=== PATIENT | female | born 1950 | race Caucasian/White ===

== ENCOUNTER 2019-12-21 12:50 | Outpatient (CLI) | payer MEDICARE, SELFPAY ==
[2019-12-21 15:54] LABS: Immunoglobulin A 70 mg/dL (70-400); Immunoglobulin G 875 mg/dL (700-1600); Immunoglobulin M 33 mg/dL (40-230)
[2019-12-25 04:25] LABS: Lambda Light Chain 12.9 mg/L (5.7-26.3)
== END 2019-12-21 12:51 | disposition home or self-care (01) ==
LOC: ANHLAB 12:55
PROVIDERS: PCP Family Medicine; Visit Provider Internal Medicine Hematology & Oncology
DX: D80.1 Nonfamilial hypogammaglobulinemia (principal)
CPT/HCPCS: 36415; 82784; 83883

== ENCOUNTER 2019-12-23 03:04 | Emergency (ER) | payer MEDICARE, SELFPAY ==
[2019-12-23] VITALS (8 sets, daily range): BP systolic 129–142; BP diastolic 66–73; PULSE 62–75; RESP 13–21; TEMP 36.8; O2SAT 97–100
--- NOTE | ~2019-12-23 | XR_ITS ---
EXAMINATION: XR chest 2V DATE: 12/23/2019 03:47 INDICATION: Hypertension and palpitations TECHNIQUE: PA and lateral views of the chest were obtained. COMPARISON: Chest radiograph dated 10/06/2018 FINDINGS: Unchanged mild biapical pleural-parenchymal scarring. No new airspace opacities, pulmonary edema, ple ural effusion or pneumothorax. The cardiomediastinal silhouette is normal. Visualized bones and soft tissues are unremarkable. IMPRESSION: 1. No acute cardiopulmonary disease. Reviewed, dictated and finalized at location A.
--- NOTE | 2019-12-23 03:14 | ECG_ITS ---
Measurements Intervals [place] Rate: 69 P: 7 WI: 175 QRS: 6 QRSD: 89 T: 39 QT: 396 QTc: 427 Interpretive Statements SINUS RHYTHM BORDERLINE ST-T WAVE ABNORMALITY- ANT/LAT LEADS BORDERLINE ECG Electronically Signed On 12-26-2019 10:15:35 CDT by Davide Jenkins D.O.
[2019-12-23 03:42] LABS: Basophils Percent Auto 0.4 % (0.2-1.2); Eosinophils Absolute Auto 0.1 K/mm3 (0-0.3); Eosinophils Percent Auto 1.3 % (0-4.4); Hemoglobin 13.8 g/dL (12.0-15.0); Immature Granulocyte Absolute 0.03 K/mm3 (0.00-0.031); Immature Granulocyte Percent A 0.3 % (0-0.5); Lymphocytes Absolute Auto 4.32 K/mm3 (0.9-3.2); Mean Corpuscular HGB Conc 33.7 g/dl (32-36); Mean Corpuscular Hemoglobin 28.9 pg (26-34); Mean Corpuscular Volume 85.8 fl (80-100); Mean Platelet Volume 11.4 fl (7.4-10.4); Monocytes Absolute Auto 0.8 K/mm3 (0.1-0.6); Monocytes Percent Auto 8.4 % (2.6-8.5); Neutrophils Absolute Auto 4.5 K/mm3 (1.3-6.7); Neutrophils Percent Auto 45.6 % (45.5-73.1); Platelet Count Result 270 k/mm3 (150-375); Red Blood Count 4.78 M/mm3 (4.2-5.4); Red Cell Distribution Width 13.3 % (11.5-14.5); White Blood Count 9.8 K/mm3 (4.5-10.0)
[2019-12-23 03:54] LABS: INR 0.9; Prothrombin Time 12.1 Seconds (11.1-14.7)
[2019-12-23 03:55] LABS: Partial Thromboplastin Time 26.6 SECONDS (22.3-36.8)
[2019-12-23 03:57] LABS: Blood Urea Nitrogen 25 mg/dL (7-17); Carbon Dioxide 25 mmol/L (22-30); Chloride 107 mmol/L (98-107); Estimated CRCL calculation 22 ml/min; Estimated Glomerular Filt Rate 26; Glucose 113 mg/dL (65-105); Sodium 138 mmol/L (137-145)
[2019-12-23 04:09] LABS: Troponin I < 0.012 ng/mL (0.000-0.034)
--- NOTE | 2019-12-23 04:20 | ED.GENADULT ---
HPI - General Adult General Chief complaint: Chest Pain <Edward Sifuentes MD - Last Filed: 12/23/19 04:27> Stated complaint: heart racing <Edward Sifuentes MD - Last Filed: 12/23/19 04:27> Time Seen by Provider: 12/23/19 03:13 <Edward Sifuentes MD - Last Filed: 12/23/19 04:27> History of Present Illness HPI narrative: Patient is a 69-year-old female who presents ER with heart palpitations. Patient states she woke up from sleep and noticed that her heart was racing. This persisted for about an hour. No chest pain or shortness of breath. Patient does have history of anxiety. She has been taking anxiety medication for intermittent chest pain over the last couple weeks. It always resolves her symptoms. She has had no fevers or chills or sweats. She recently was concerned that she had COVID 19 and received a test by her PCP despite not having symptoms and it was negative. Patient does report that she has been having some mild nausea not eating as well. Reports she took her pulse and it got as high as 116 bpm. <Edward Sifuentes MD - Last Filed: 12/23/19 04:27> Related Data Home medications: Home Medications Medication Instructions Recorded Confirmed metoprolol succinate 25 mg PO DAILY 12/23/19 <Edward Sifuentes MD - Last Filed: 12/23/19 04:27> Allergies/adverse reactions: Allergies Allergy/AdvReac Type Severity Reaction Status Date / Time carbamazepine Allergy Severe Anaphylaxis Unverified 12/23/19 03:38 cefuroxime Allergy Severe Anaphylaxis Unverified 12/23/19 03:38 hydromorphone Allergy Severe Anaphylaxis Unverified 12/23/19 03:38 lamotrigine Allergy Severe Hives / Verified 11/30/16 09:43 Red Face levofloxacin Allergy Severe Anaphylaxis Unverified 12/23/19 03:38 lisinopril Allergy Severe Anaphylaxis Unverified 12/23/19 03:38 mirtazapine Allergy Severe Nausea And Verified 04/18/17 14:48 Vomiting paroxetine Allergy Severe Anaphylaxis Unverified 12/23/19 03:38 Penicillins Allergy Severe Anaphylaxis Unverified 12/23/19 03:38 Sulfa (Sulfonamide Allergy Severe Anaphylaxis Unverified 12/23/19 03:38 Antibiotics) sulfamethoxazole Allergy Severe Anaphylaxis Unverified 12/23/19 03:38 adhesive Allergy Intermediate Rash Unverified 12/23/19 03:38 azithromycin Allergy Intermediate Anaphylaxis Unverified 12/23/19 03:38 iodine Allergy Unknown Anaphylactic Unverified 12/23/19 03:38 Shock prednisone Allergy Unknown HEART BEAT Unverified 04/17/15 09:43 RACING/SOB trimethoprim Allergy Unknown Rash Unverified 12/23/19 03:38 Contrast Media Allergy Unknown Anaphylaxis Uncoded 12/23/19 03:37 EGGPLANT Allergy Unknown HIVES Uncoded 02/21/14 17:37 HYDROMORPHONE HCL Allergy Unknown decreased Uncoded 04/17/15 09:43 heart rate <Edward Sifuentes MD - Last Filed: 12/23/19 04:27> Review of Systems Review of Systems: All systems reviewed & are unremarkable except as noted in HPI and below <Edward Sifuentes MD - Last Filed: 12/23/19 04:27> Constitutional: Constitutional: Denies chills, Denies fever(s) and Denies weakness <Edward Sifuentes MD - Last Filed: 12/23/19 04:27> ENT: Denies nasal congestion and Denies sore throat <Edward Sifuentes MD - Last Filed: 12/23/19 04:27> Cardiovascular: Cardiovascular: Denies chest pain, Reports rapid heart rate and Denies radiating jaw, neck or arm pain <Edward Sifuentes MD - Last Filed: 12/23/19 04:27> Respiratory: Respiratory: Denies cough, Denies dyspnea and Denies wheezing <Edward Sifuentes MD - Last Filed: 12/23/19 04:27> Gastrointestinal: Gastrointestinal: Denies abdominal pain, Reports nausea and Denies vomiting <Edward Sifuentes MD - Last Filed: 12/23/19 04:27> Genitourinary: Genitourinary: Denies nocturia and Denies dysuria <Edward Sifuentes MD - Last Filed: 12/23/19 04:27> PMFSH Past Medical History Medical History: Medical History (Updated 12/23/19 @ 07:30 by Joy Rodriguez MD) Anxiety Aortic
[2019-12-23] MEDS: SODIUM CHLORIDE 0.9% IV 1,000 ML 999 ML IV CONT (04:44)
[2019-12-23 05:13] LABS: Add Urine Microscopic? YES; Appearance Urine Clear (Clear); Bilirubin Urine Negative (Negative); Blood Urine 1+ (Negative); Color Urine Colorless (Yellow); Glucose Urine UA Negative (Negative); Ketones Urine Negative (Negative); Leukocyte Esterase Ur Negative LEU/UL (Negative); Mucus Urine Rare /lpf; Nitrate Urine Negative (Negative); Protein Urine Negative (Negative); Specific Grav Ur 1.008 (1.001-1.035); Squamous Epithelial Cell Urine Rare /hpf (Few); Urobilinogen Urine Negative mg/dL (<2.0)
[2019-12-23 07:04] LABS: Troponin I < 0.012 ng/mL (0.000-0.034)
== END 2019-12-23 07:38 | disposition home or self-care (01) ==
PROVIDERS: Emergency Medicine; Emergency Provider Emergency Medicine; PCP Family Medicine
DX: R07.9 Chest pain, unspecified (principal); F41.9 Anxiety disorder, unspecified; I25.2 Old myocardial infarction; I10 Essential (primary) hypertension
CPT/HCPCS: 36415; 71046; 80048; 81001; 84484; 85025; 85610; 85730; 93005; 96360; 99284; J7030

== ENCOUNTER 2020-03-03 10:00 | Outpatient (CLI) | payer MEDICARE, SELFPAY ==
--- NOTE | ~2020-03-03 | MM_ITS ---
EXAMINATION: MM screening giovanni BI w ashley HISTORY: Screening mammogram TECHNIQUE: Craniocaudal and mediolateral oblique 3-D tomosynthesis images were obtained and synthetic 2-D images were generated. CAD analysis was submitted and interpreted. COMPARISON: 12/06/2018, 12/02/2017, 01/21/2016 bilateral digital screening mammogram examinations BREAST PARENCHYMAL COMPOSITION: There are scattered areas of fibroglandular density. FINDINGS: There is no evidence of suspicious mass, calcification, or architectural distortion to sugg est malignancy in either breast. There has been no suspicious interval change. IMPRESSION: 1. No mammographic evidence of malignancy. 2. Recommend routine screening mammography in one year. BI-RADS Category 1: Negative Reviewed, dictated and finalized at location A.
== END 2020-03-03 10:01 | disposition home or self-care (01) ==
LOC: ANHIMG 10:03
PROVIDERS: PCP Family Medicine; Visit Provider Family Medicine
DX: Z12.31 Encounter for screening mammogram for malignant neoplasm of breast (principal)
CPT/HCPCS: 77063; 77067

== ENCOUNTER 2020-06-25 08:19 | Outpatient (CLI) | payer MEDICARE, SELFPAY ==
[2020-06-25 09:02] LABS: Basophils Percent Auto 0.3 % (0.2-1.2); Eosinophils Absolute Auto 0.1 K/mm3 (0-0.3); Eosinophils Percent Auto 1.7 % (0-4.4); Hemoglobin 12.9 g/dL (12.0-15.0); Immature Granulocyte Absolute 0.02 K/mm3 (0.00-0.031); Immature Granulocyte Percent A 0.3 % (0-0.5); Lymphocytes Absolute Auto 2.34 K/mm3 (0.9-3.2); Lymphocytes Percent Auto 30.7 % (18.3-44.2); Mean Corpuscular HGB Conc 33.1 g/dl (32-36); Mean Corpuscular Hemoglobin 29.1 pg (26-34); Mean Platelet Volume 10.9 fl (7.4-10.4); Monocytes Absolute Auto 0.5 K/mm3 (0.1-0.6); Monocytes Percent Auto 7.1 % (2.6-8.5); Neutrophils Absolute Auto 4.6 K/mm3 (1.3-6.7); Neutrophils Percent Auto 59.9 % (45.5-73.1); Platelet Count Result 230 k/mm3 (150-375); Red Blood Count 4.43 M/mm3 (4.2-5.4); Red Cell Distribution Width 12.9 % (11.5-14.5); White Blood Count 7.6 K/mm3 (4.5-10.0)
[2020-06-25 18:01] LABS: Alanine Aminotransferase 33 U/L (4-35); Albumin Level 4.6 g/dL (3.5-5.1); Alkaline Phosphatase 67 U/L (38-126); Anion Gap 11 mmol/L (8-16); Aspartate Amino Transferase 37 U/L (14-36); Bilirubin,Total 0.3 mg/dL (0.2-1.3); Blood Urea Nitrogen 17 mg/dL (7-17); Calcium 9.8 mg/dL (8.4-10.2); Carbon Dioxide 28 mmol/L (22-30); Chloride 103 mmol/L (98-107); Estimated Glomerular Filt Rate 37; Glucose 98 mg/dL (65-105); Potassium 4.5 mmol/L (3.4-5.0); Sodium 142 mmol/L (137-145)
[2020-06-25 20:58] LABS: Immunoglobulin A 63 mg/dL (70-400); Immunoglobulin G 958 mg/dL (700-1600); Immunoglobulin M 38 mg/dL (40-230)
[2020-06-27 16:15] LABS: Albumin 4.2 g/dL (3.8-4.8); Alpha 1 Globulin 0.3 g/dL (0.2-0.3); Alpha 2 Globulin 0.8 g/dL (0.5-0.9); Beta 1 Globulin 0.4 g/dL (0.4-0.6); Gamma Globulin 0.8 g/dL (0.8-1.7); Protein, Total 6.8 g/dL (6.1-8.1)
[2020-06-29 19:14] LABS: Kappa\\Lambda Light Chains 2.39 (0.26-1.65)
== END 2020-06-25 08:20 | disposition home or self-care (01) ==
PROVIDERS: PCP Family Medicine; Visit Provider Internal Medicine Hematology & Oncology
DX: D80.1 Nonfamilial hypogammaglobulinemia (principal)
CPT/HCPCS: 36415; 80053; 82784; 83883; 84155; 84165; 85025; 86334

== ENCOUNTER 2020-11-01 20:27 | Emergency (ER) | payer MEDICARE, SELFPAY ==
--- NOTE | ~2020-11-01 | CT_ITS ---
EXAMINATION: CT brain wo con INDICATION: Transient alteration of awareness COMPARISON: 10/19/2010 TECHNIQUE: Standard unenhanced head CT. The dose-length product (DLP) was 605.33 mGy-cm. The mA was a djusted according to patient size. Iterative reconstruction technique was employed. FINDINGS: There is no acute intraparenchymal hemorrhage. No evidence of mass lesion. No evidence of a cute infarction. There is mild periventricular and subcortical hypodensity probably related to small vessel ischemic disease. There is mild prominence of the sulci and ventricles related to cerebral atr ophy. Intracranial calcified cerebral atherosclerosis is noted. There are no extra-axial collections. There is no mass effect or midline shift. Changes in the right globe are likely from ocular lens sejal medhat. There is mild mucosal thickening of the paranasal sinuses. IMPRESSION: 1. No acute intracranial abnormality. 2. Age related findings. Reviewed, dictated and finalized at location A.
--- NOTE | ~2020-11-01 | XR_ITS ---
EXAMINATION: XR chest 1V portable EXAM DATE: 11/01/2020 20:58 INDICATION: Weakness. COVID diagnosis. TECHNIQUE: Portable AP frontal chest x-ray was obtained. Comparison is made to prior examination from 12/23/2019. FINDINGS: There is small amount of ill-defined left mid and lower lung zone groundglass density airsp karen disease, nonspecific pneumonitis. Could be COVID pneumonia. No confluent consolidation, pneumotho rax or pleural effusion suspected. The cardiomediastinal silhouette is prominent but magnified on t his AP technique. There are no osseous abnormalities identified. IMPRESSION: Small amount of ill-defined left mid and lower lung zone airspace disease; clinical solomon elation. Reviewed, dictated and finalized at location A. IMPRESSION: Small amount of ill-defined left mid and lower lung zone airspace disease; clinical correlation.
[2020-11-01 20:35] VITALS: BP 100/88; PULSE 65; RESP 12; TEMP 37.8; O2SAT 97
[2020-11-01 20:50] VITALS: PULSE 63
[2020-11-01 21:00] VITALS: BP 107/60; PULSE 63; RESP 11; O2SAT 96
[2020-11-01 21:01] LABS: Hematocrit 36.9 % (37.0-47.0); Hemoglobin 12.2 g/dL (12.0-15.0); Immature Platelet Fraction Pct 5.5 % (0.9-11.2); Mean Corpuscular HGB Conc 33.1 g/dl (32-36); Mean Corpuscular Hemoglobin 28.8 pg (26-34); Mean Corpuscular Volume 87.2 fl (80-100); Mean Platelet Volume 11.7 fl (7.4-10.4); Platelet Count Result 136 k/mm3 (150-375); Red Blood Count 4.23 M/mm3 (4.2-5.4); Red Cell Distribution Width 13.7 % (11.5-14.5); White Blood Count 4.5 K/mm3 (4.5-10.0)
[2020-11-01 21:09] LABS: INR 0.9; Partial Thromboplastin Time 31.6 SECONDS (22.3-36.8); Prothrombin Time 12.9 Seconds (11.1-14.7)
[2020-11-01 21:10] LABS: Lactic Acid Reflex 0.7 mmol/L (0.7-2.1)
[2020-11-01 21:13] LABS: Alanine Aminotransferase 21 U/L (4-35); Albumin Level 3.6 g/dL (3.5-5.1); Alkaline Phosphatase 54 U/L (38-126); Anion Gap 10 mmol/L (8-16); Aspartate Amino Transferase 34 U/L (14-36); Bilirubin,Total 0.2 mg/dL (0.2-1.3); Blood Urea Nitrogen 13 mg/dL (7-17); CRP 4.2 mg/dL (<1.0); Calcium 8.3 mg/dL (8.4-10.2); Carbon Dioxide 21 mmol/L (22-30); Chloride 105 mmol/L (98-107); Estimated CRCL calculation 30 ml/min; Estimated Glomerular Filt Rate 37; Glucose 123 mg/dL (65-105); Potassium 3.6 mmol/L (3.4-5.0); Sodium 136 mmol/L (137-145)
[2020-11-01 21:21] LABS: Alveolar/Arterial O2 Gradient 35.7 mmHg; Base Excess ABG -5.1 mEq/l (+/-2.0); Device ROOM AIR; Fractional Inspired Oxygen 21 %; HCO3 ABG 19.3 mEq/l (22.0-26.0); Oxygen Content ABG 16.2 %vol (16.0-22.0); Oxygen Saturation ABG 94.7 % (95.0-100.0); Oxyhemoglobin 92.8 % THb (90.0-100.0); PCO2 ABG 33.8 mmHg (35.0-45.0); PO2 ABG 73.6 mmHg (80.0-100.0); Site Drawn RIGHT BRACHIAL; Total Hemoglobin 12.4 g/dL (12.0-18.0); pH ABG 7.375 (7.350-7.450)
[2020-11-01] MEDS: SODIUM CHLORIDE 0.9% IV 1,000 ML 999 ML IV CONT (21:24)
[2020-11-01 21:26] LABS: Band Neutrophils Percent 10 % (0-6); Lymphocytes Absolute Manual 0.99 K/mm3 (1.1-4.5); Monocytes Absolute Manual 0.27 K/mm3 (0.1-0.90); Monocytes Percent Manual 6 % (3-9); Neutrophils Absolute Manual 3.24 K/mm3 (1.7-7.2); Neutrophils Percent Manual 62 % (46-73); Total Cells Counted 100
[2020-11-01 21:27] LABS: Platelet Estimate Decreased (Adequate)
[2020-11-01 21:58] LABS: Add Urine Microscopic? YES; Appearance Urine Clear (Clear); Bilirubin Urine Negative (Negative); Blood Urine 1+ (Negative); Color Urine Straw (Yellow); Glucose Urine UA Negative (Negative); Ketones Urine Negative (Negative); Leukocyte Esterase Ur Negative LEU/UL (Negative); Nitrate Urine Negative (Negative); Protein Urine Negative (Negative); RBC Urine 0-2 /hpf (0-2); Specific Grav Ur 1.006 (1.001-1.035); Urobilinogen Urine Negative mg/dL (<2.0); WBC Urine 0-3 /hpf
--- NOTE | 2020-11-01 22:27 | ED.GENADULT ---
HPI - General Adult General Chief complaint: Weakness Stated complaint: weak with covid, possible sz Time Seen by Provider: 11/01/20 20:53 History of Present Illness HPI narrative: Patient is a 70-year-old female who presents to emergency department with chief complaint of COVID-19. The patient reports that she was diagnosed with Covid about 7 days ago tonight she has been very weak and states that she is not really been eating and drinking well and noticed that she is weak. Patient was sitting on the toilet and had a brief episode where she started to pass out and had some jerks in her body the family was concerned that she may have had a seizure and had the patient sent to the emergency department. Upon arrival to the emergency department patient is awake alert able to answer all questions patient states she just feels weak and rundown after having Covid Related Data Home Medications Medication Instructions Recorded Confirmed metoprolol succinate 25 mg PO DAILY 12/23/19 Allergies Allergy/AdvReac Type Severity Reaction Status Date / Time carbamazepine Allergy Severe Anaphylaxis Verified 11/01/20 21:07 cefuroxime Allergy Severe Anaphylaxis Verified 11/01/20 21:07 hydromorphone Allergy Severe Anaphylaxis Verified 11/01/20 21:07 lamotrigine Allergy Severe Hives / Verified 11/01/20 21:07 Red Face levofloxacin Allergy Severe Anaphylaxis Verified 11/01/20 21:07 lisinopril Allergy Severe Anaphylaxis Verified 11/01/20 21:07 mirtazapine Allergy Severe Nausea And Verified 11/01/20 21:07 Vomiting paroxetine Allergy Severe Anaphylaxis Verified 11/01/20 21:07 Penicillins Allergy Severe Anaphylaxis Verified 11/01/20 21:07 Sulfa (Sulfonamide Allergy Severe Anaphylaxis Verified 11/01/20 21:07 Antibiotics) sulfamethoxazole Allergy Severe Anaphylaxis Verified 11/01/20 21:07 adhesive Allergy Intermediate Rash Verified 11/01/20 21:07 azithromycin Allergy Intermediate Anaphylaxis Verified 11/01/20 21:07 iodine Allergy Unknown Anaphylactic Verified 11/01/20 21:07 Shock prednisone Allergy Unknown HEART BEAT Verified 11/01/20 21:07 RACING/SOB trimethoprim Allergy Unknown Rash Verified 11/01/20 21:07 Contrast Media Allergy Unknown Anaphylaxis Uncoded 11/01/20 21:07 EGGPLANT Allergy Unknown HIVES Uncoded 11/01/20 21:07 HYDROMORPHONE HCL Allergy Unknown decreased Uncoded 11/01/20 21:07 heart rate Review of Systems Review of Systems: Narrative: A 10 system review of systems was completed on the patient and is negative except for what is stated in the HPI. Nursing and ancillary documentation was reviewed. PMFSH Past Medical History Medical History Anxiety Aortic valve defect Diverticulitis Hypertension Myocardial infarction Surgical History Surgical History History of hysterectomy Hx of appendectomy Hx of tonsillectomy Family History Family History Father Family history of lung cancer Patient's father is Mother Family history of lung cancer Patient's mother is Sibling Family history of malignant neoplasm Other Family history of alcoholism Family history of arthritis Family history of seizure disorder Social History Social History Smoking status: Never smoker Second hand tobacco smoke exposure: No Alcohol intake: never Gender identity (if verbalized by the patient): Female Exam Narrative: Exam Narrative: GENERAL: Well-appearing, well-nourished, and in no acute distress. HEAD: Normocephalic, atraumatic. EYES: PERRLA and EOMI. ENT: Nares clear, no rhinorrhea or epistaxis. Mucous membranes moist. NECK: Supple. CHEST: Clear to auscultation. No respiratory distress. HEART: Regular rate and rhythm. No
--- NOTE | 2020-11-01 22:55 | PC.NURSE ---
Patient's daughter on the phone at this time reports that patient has been having increasing weakness throughout the day to the point that she could not get up without assistance x 2. It is also reported that this patient did stop eating and drinking today with reports of increasing weakness and feeling very hot .
[2020-11-01 23:15] VITALS: PULSE 63; RESP 18; O2SAT 98
[2020-11-02] MEDS: AZITHROMYCIN 250 MG TABLET 500 MG PO (00:35)
== END 2020-11-02 00:49 | disposition home or self-care (01) ==
PROVIDERS: Emergency Medicine; Emergency Provider Emergency Medicine; PCP Family Medicine
DX: U07.1 COVID-19 (principal); J12.82 Pneumonia due to coronavirus disease 2019; R55 Syncope and collapse; F41.9 Anxiety disorder, unspecified; I10 Essential (primary) hypertension; I25.2 Old myocardial infarction; I99.9 Unspecified disorder of circulatory system
CPT/HCPCS: 36415; 36600; 51701; 70450; 71045; 80053; 81001; 82805; 83605; 85025; 85055; 85610; 85730; 86140; 87040; 96360; 99284; A9270; J7030

== ENCOUNTER 2021-01-28 15:43 | Emergency (ER) | payer OTHER, MEDICARE, SELFPAY ==
--- NOTE | ~2021-01-28 | XR_ITS ---
EXAMINATION: XR knee LT 3V DATE: 01/28/2021 16:07 INDICATION: Left knee pain TECHNIQUE: Three views of the left knee were obtained. COMPARISON: 11/17/2016 FINDINGS: Alignment is normal. No fracture or osteochondral lesion. Joint spaces are normal with no e rosions. No joint effusion/synovitis. Soft tissues are unremarkable. IMPRESSION: 1. No acute osseous abnormality. Reviewed, dictated and finalized at location A.
[2021-01-28 15:51] VITALS: BP 130/62; PULSE 60; RESP 16; TEMP 36.2; O2SAT 100
--- NOTE | 2021-01-28 16:10 | ED.LOWEXIN ---
HPI - Extremity Injury (Lower) General Chief Complaint: Extremity Injury, Lower Stated Complaint: bilat knee injruies Source: patient and RN notes reviewed Limitations: no limitations History of Present Illness HPI Narrative: The patient, who is unwell on several meds, presents with knee injury. Patient states she has a pre-existing orthopedic history remarkable for history of psoriatic arthritis previously on methotrexate[ but stopped for CKD]. She also has a prior history of left ' medial meniscal' injury on MRI and had been seen by orthopedics and had a walker. Right knee films for pain [2016] showed osteoarthritis. Today while shopping [[facility]], patient mentions she slipped on liquid resulting in varus stress to her left knee, and some mild hyperextension to her right lower extremity. She complains of mild to moderate pain is worse with motion, better at rest of both knees but mostly the left>>R. No bleeding, deformity, direct injury, immediate or current swelling effusion, other injury. Related Data Home Medications Medication Instructions Recorded Confirmed alprazolam 0.5 mg PO TID 11/01/20 01/09/21 aspirin [Adult Aspirin] 324 mg PO DAILY 11/01/20 01/09/21 hydrocodone-acetaminophen [[place]] 1 tablet PO 11/01/20 01/09/21 cholecalciferol (vitamin D3) 50 50 mcg PO DAILY 01/09/21 01/09/21 mcg (2,000 unit) capsule lisinopril 10 mg tablet 10 mg PO DAILY 01/09/21 01/09/21 metoprolol succinate 25 mg 25 mg PO BID tablet 01/09/21 01/09/21 tablet,extended release 24 hr Allergies Allergy/AdvReac Type Severity Reaction Status Date / Time carbamazepine Allergy Severe Anaphylaxis Verified 01/09/21 10:02 cefuroxime Allergy Severe Anaphylaxis Verified 01/09/21 10:02 hydromorphone Allergy Severe Anaphylaxis Verified 01/09/21 10:02 lamotrigine Allergy Severe Hives / Verified 01/09/21 10:02 Red Face mirtazapine Allergy Severe Nausea And Verified 01/09/21 10:02 Vomiting paroxetine Allergy Severe Anaphylaxis Verified 01/09/21 10:02 Penicillins Allergy Severe Anaphylaxis Verified 01/09/21 10:02 Sulfa (Sulfonamide Allergy Severe Anaphylaxis Verified 01/09/21 10:02 Antibiotics) iodine Allergy Unknown Anaphylactic Verified 01/09/21 10:02 Shock prednisone Allergy Unknown HEART BEAT Verified 01/09/21 10:02 RACING/SOB trimethoprim Allergy Unknown Rash Verified 01/09/21 10:02 Iodinated Contrast Media Allergy Anaphylaxis Verified 01/09/21 14:37 adhesive AdvReac Intermediate Rash Verified 01/09/21 14:37 azithromycin AdvReac Intermediate Palpitation Verified 01/09/21 10:02 s levofloxacin AdvReac Mild swelling Verified 01/09/21 14:37 and black discoloration at IV site EGGPLANT Allergy Unknown HIVES Uncoded 01/09/21 10:02 HYDROMORPHONE HCL Allergy Unknown decreased Uncoded 01/09/21 10:02 heart rate Review of Systems Review of Systems: Narrative: General/Constitutional: No weight loss,fever Eyes: N0: Redness,discharge Ears/Nose/Throat: No: Epistaxis,ear discharge Respiratory: Denies: Hemoptysis Gastrointestinal: No Vomiting, Bleeding-rectal Skin: No Lumps, eruption Neurologic: No Focal Weakness,Sz Hematologic: Denies: Petechiae/Purpura Psychiatric: No: Suicida ideationl All Other Systems: Reviewed and Negative [facility] Past Medical History Medical History (Updated 01/29/21 @ 17:43 by Vicente Arzate MD) Anxiety Aortic valve defect Arthritis Diverticulitis Heart disease Hypertension Kidney disease Migraine Myocardial infarction Surgical History Surgical History History of hysterectomy Hx of appendectomy Hx of tonsillectomy Family History Family History (Updated 01/09/21 @ 09:25 by Ruchi Whitney MA) Father Family history of lung cancer Patient's father is Mother Family history of lung cancer Patient's mother is Hypertension Depression Thyroid disease S
== END 2021-01-28 16:39 | disposition home or self-care (01) ==
PROVIDERS: Emergency Provider Emergency Medicine; PCP Nurse Practitioner Family
DX: M23.92 Unspecified internal derangement of left knee (principal); M17.11 Unilateral primary osteoarthritis, right knee; Z87.891 Personal history of nicotine dependence; F41.9 Anxiety disorder, unspecified; L40.50 Arthropathic psoriasis, unspecified; I13.10 Hypertensive heart and chronic kidney disease without heart failure, with stage 1 through stage 4 chronic kidney disease, or unspecified chronic kidney disease; N18.9 Chronic kidney disease, unspecified; I25.2 Old myocardial infarction; Z79.82 Long term (current) use of aspirin
CPT/HCPCS: 73562; 99213; G0463

== ENCOUNTER 2021-05-12 14:55 | Outpatient (CLI) | payer MEDICARE, SELFPAY ==
--- NOTE | ~2021-05-12 | DEXA_ITS ---
Bone Density Report Name: Kemi Espinosa Age: 70 Sex: Female Ethnicity: White Date of : 1950 Indication: osteopenia; hysterectomy; postmenopausal Referring Provider: Keri Bales Study: Bone densitometry was performed. Exam Date: May 12, 2021 Accession number: [id number] Bone Density: Region BMD T-score Z-score Classification AP Spine (L1-L4) 0.890 -1.4 0.8 Osteopenia Femoral Neck (Left) 0.607 -2.2 -0.2 Osteopenia Total Hip (Left) 0.731 -1.7 -0.1 Osteopenia Total Hip Bilateral Avg 0.715 -1.9 -0.3 Osteopenia Femoral Neck (Right) 0.631 -2.0 0.0 Osteopenia Total Hip (Right) 0.697 -2.0 -0.4 Osteopenia World Health Organization criteria for BMD impression classify patients as: Normal (T-score at or above -1.0), Osteopenia (T-score between -1.0 and -2.5), or Osteoporosis (T-score at or below -2.5). 10-year Fracture Risk(1): Major Osteoporotic Fracture 13% Hip Fracture 3.1% Reported Risk Factors: [place] (), Neck BMD=0.607, BMI=27.9 (1) FRAX(R) Version 3.08. Fracture probability calculated for an untreated patient. Fracture probability may be lower if the patient has received treatment. Previous Exams: Region Exam Age BMD T-score BMD Change BMD Change Date g/cm2 vs Baseline vs Previous AP Spine(L1-L4) 05/12/2021 70 0.890 -1.4 0.002(0.2%) 0.002(0.2%) 11/18/2016 66 0.888 -1.4 Total Hip(Left) 05/12/2021 70 0.731 -1.7 -0.006(-0.8%) -0.006(-0.8%) 11/18/2016 66 0.737 -1.7 Total Hip(Right) 05/12/2021 70 0.697 -2.0 -0.020(-2.8%) -0.020(-2.8%) 11/18/2016 66 0.717 -1.8 *Denotes significance at 95% confidence level, LSC for AP Spine = 0.022 g/cm2, LSC for Total Hip = 0.027 g/cm2 Clinical Information Provided by Patient: Has used the following medications: Vitamin D, Calcium Has the following medical conditions: Hysterectomy Patient maximum height was 62 Menopause Age: 36 Does not regularly consume dairy products Drinks caffeinated beverages Onset of menses at age 9 Number of children 6 Impression: The patient has low bone mass, based on the Left Femoral Neck T-score. The patient has an estimated ten-year risk of hip fracture of 3.1% and an estimated ten-year risk of major fracture of 13%, based on the WHO FRAX algorithm. No significant bone loss was observed. Discussion: BONE DENSITY IS LOW AT ONE OR MORE SKELETAL SITES. THE PATIENT'S BMD AND CLINICAL RISK FACTORS CONTRIBUTE TO THIS PATIENT'S INCR
--- NOTE | ~2021-05-12 | MM_ITS ---
EXAMINATION: MM screening [facility] BI w [facility] HISTORY: Screening mammogram TECHNIQUE: Craniocaudal and mediolateral oblique 3-D tomosynthesis images were obtained and synthetic 2-D images were generated. CAD analysis was submitted and interpreted. COMPARISON: 03/03/2020, 12/06/2018, 12/02/2017 BREAST PARENCHYMAL COMPOSITION: There are scattered areas of fibroglandular density. FINDINGS: There is no evidence of suspicious mass, calcification, or architectural distortion to sugg est malignancy in either breast. There has been no suspicious interval change. IMPRESSION: 1. No mammographic evidence of malignancy. 2. Recommend routine screening mammography in one year. BI-RADS Category 1: Negative Reviewed, dictated and finalized at location A.
== END 2021-05-12 14:56 | disposition home or self-care (01) ==
PROVIDERS: PCP Nurse Practitioner Family; Visit Provider Nurse Practitioner Family
DX: Z12.31 Encounter for screening mammogram for malignant neoplasm of breast (principal); Z78.0 Asymptomatic menopausal state; M85.88 Other specified disorders of bone density and structure, other site; M85.851 Other specified disorders of bone density and structure, right thigh; M85.852 Other specified disorders of bone density and structure, left thigh
CPT/HCPCS: 77063; 77067; 77080

== ENCOUNTER 2021-05-14 07:39 | Outpatient (CLI) | payer OTHER, MEDICARE, SELFPAY ==
--- NOTE | ~2021-05-14 | MR_ITS ---
EXAMINATION: MR lumbar spine [facility] EXAM DATE: 05/14/2021 08:28 INDICATION: M47.816 - Spondylosis without myelopathy or radiculopathy. TECHNIQUE: Multi-sequential, multiplanar MR images of the lumbar spine were obtained without contrast . Sagittal T1, T2, T2 fat saturation images. Axial T2 weighted images. Comparison is made to prior examination from 11/18/2016. FINDINGS: Mild diffuse lumbar disc disease. There is a hemangioma within the L1 and L5 vertebral bodi es. The conus medullaris terminates at the L1/2 level and has normal signal intensity and morphology. Paraspinal soft tissue is unremarkable. There is 2 mm anterolisthesis L4 on L5. No spondylolysis. Level by level evaluation: T12-L1: Disc does not extend beyond the endplate margin. Facet arthropathy: None. Neural foraminal stenosis: No stenosis. Central canal stenosis: No stenosis. L1-L2: There is a mild diffuse disc bulge. Facet arthropathy: Mild. Neural foraminal stenosis: No stenosis. Central canal stenosis: No stenosis. L2-L3: There is a mild diffuse disc bulge. Facet arthropathy: Mild to moderate. Neural foraminal stenosis: No stenosis. Central canal stenosis: No stenosis. L3-L4: There is a mild diffuse disc bulge. Facet arthropathy: Mild. Neural foraminal stenosis: No stenosis. Central canal stenosis: No stenosis. L4-L5: There is a mild diffuse disc bulge. Facet arthropathy: Mild to moderate. Neural foraminal stenosis: Mild to moderate left. Central canal stenosis: Mild. L5-S1: There is a mild diffuse disc bulge. Facet arthropathy: Mild. Neural foraminal stenosis: Mild right. Central canal stenosis: No stenosis. Minimal progression compared to 2017 study. IMPRESSION: 1. Overall mild lumbar spondylosis. Reviewed, dictated and finalized at location G.
== END 2021-05-14 07:40 ==
PROVIDERS: PCP Nurse Practitioner Family; Visit Provider Nurse Practitioner Family
DX: M47.816 Spondylosis without myelopathy or radiculopathy, lumbar region (principal)
CPT/HCPCS: 72148

== ENCOUNTER 2021-06-23 13:04 | Outpatient (CLI) | payer MEDICARE, SELFPAY ==
[2021-06-23 13:19] LABS: Basophils Percent Auto 0.4 % (0.2-1.2); Eosinophils Absolute Auto 0.2 K/mm3 (0-0.3); Eosinophils Percent Auto 2.5 % (0-4.4); Hematocrit 40.7 % (37.0-47.0); Hemoglobin 13.6 g/dL (12.0-15.0); Immature Granulocyte Absolute 0.04 K/mm3 (0.00-0.031); Immature Granulocyte Percent A 0.5 % (0-0.5); Lymphocytes Absolute Auto 3.34 K/mm3 (0.9-3.2); Lymphocytes Percent Auto 40.1 % (18.3-44.2); Mean Corpuscular HGB Conc 33.4 g/dl (32-36); Mean Corpuscular Hemoglobin 29.5 pg (26-34); Mean Corpuscular Volume 88.3 fl (80-100); Mean Platelet Volume 10.5 fl (7.4-10.4); Monocytes Absolute Auto 0.5 K/mm3 (0.1-0.6); Monocytes Percent Auto 6.1 % (2.6-8.5); Neutrophils Absolute Auto 4.2 K/mm3 (1.3-6.7); Neutrophils Percent Auto 50.4 % (45.5-73.1); Platelet Count Result 227 k/mm3 (150-375); Red Blood Count 4.61 M/mm3 (4.2-5.4); Red Cell Distribution Width 12.8 % (11.5-14.5); White Blood Count 8.3 K/mm3 (4.5-10.0)
[2021-06-23 16:48] LABS: Alanine Aminotransferase 19 U/L (4-35); Albumin Level 4.5 g/dL (3.5-5.1); Alkaline Phosphatase 64 U/L (38-126); Anion Gap 10 mmol/L (8-16); Aspartate Amino Transferase 22 U/L (14-36); Bilirubin,Total 0.3 mg/dL (0.2-1.3); Blood Urea Nitrogen 28 mg/dL (7-17); Calcium 9.5 mg/dL (8.4-10.2); Carbon Dioxide 26 mmol/L (22-30); Chloride 99 mmol/L (98-107); Estimated Glomerular Filt Rate 23; Glucose 106 mg/dL (65-110); Potassium 4.2 mmol/L (3.4-5.0); Sodium 135 mmol/L (137-145)
[2021-06-23 17:00] LABS: Immunoglobulin A 60 mg/dL (70-400); Immunoglobulin G 843 mg/dL (700-1600); Immunoglobulin M 29 mg/dL (40-230)
== END 2021-06-23 13:05 | disposition home or self-care (01) ==
LOC: ANHLAB 13:07
PROVIDERS: PCP Nurse Practitioner Family; Visit Provider Internal Medicine Hematology & Oncology
DX: D80.1 Nonfamilial hypogammaglobulinemia (principal)
CPT/HCPCS: 36415; 80053; 82784; 85025

== ENCOUNTER 2021-08-25 12:32 | Outpatient (CLI) | payer OTHER, MEDICARE, SELFPAY ==
--- NOTE | ~2021-08-25 | XR_ITS ---
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 Bumps on the head. TECHNIQUE: 4 views of the skull were obtained. COMPARISON: Head CT 11/01/2020 FINDINGS: Bone alignment is normal. No fracture. There is frontal skull hyperostosis (hyperostosis fr ontalis interna), a normal variant. IMPRESSION: 1. No abnormal mass. Reviewed, dictated and finalized at location A. R LEGAL ADVISOR IMPRESSION: 1. No abnormal mass.
== END 2021-08-25 12:33 | disposition home or self-care (01) ==
LOC: ANHIMG 12:40
PROVIDERS: PCP Family Medicine; Visit Provider Family Medicine
DX: Q75.9 Congenital malformation of skull and face bones, unspecified (principal)
CPT/HCPCS: 70260

== ENCOUNTER 2022-03-29 11:17 | Outpatient (CLI) | payer OTHER, MEDICARE, SELFPAY ==
--- NOTE | ~2022-03-29 | XR_ITS ---
EXAMINATION: XR elbow LT 2V DATE: 03/29/2022 12:26 INDICATION: Left elbow pain TECHNIQUE: Anteroposterior and lateral views of the left elbow were obtained. COMPARISON: None. FINDINGS: Alignment is normal. No fracture or joint effusion. Joint spaces are normal. No erosions. Small enthe sophyte at the olecranon insertion of the distal triceps tendon. Soft tissues are unremarkable. IMPRESSION: 1. Small olecranon enthesophyte. Otherwise unremarkable left elbow radiographs. Reviewed, dictated and finalized at location A.
--- NOTE | ~2022-03-29 | XR_ITS ---
EXAMINATION: XR hand LT 2V, XR hand RT 2V, XR wrist LT 2V, XR wrist RT 2V DATE: 03/29/2022 12:26 INDICATION: Multiple joint pain at the bilateral hands and wrists TECHNIQUE: 1. Posteroanterior and lateral views of the left wrist were obtained. 2. Dorsal palmar and lateral views of the left hand were obtained. 3. Posteroanterior and lateral views of the right wrist were obtained. 4. Dorsal palmar and lateral views of the right hand were obtained. COMPARISON: 01/10/2018 and 11/17/2016 FINDINGS: Left hand and wrist: Alignment is normal. No fracture identified. Mild polyarticular osteoarthritis of the region of the w rist, radial aspect of the carpus, first metacarpophalangeal and multiple interphalangeal joints. No erosions to suggest inflammatory arthritis. No focal soft tissue swelling. Right hand and wrist: Alignment is normal. No fracture identified. Mild polyarticular osteoarthritis of the region of the w rist, radial aspect of the carpus, first metacarpophalangeal and multiple interphalangeal joints. No erosions to suggest inflammatory arthritis. No focal soft tissue swelling. IMPRESSION: 1. Relatively symmetric mild polyarticular osteoarthritis with typical distribution at the bilateral hands and wrists. Reviewed, dictated and finalized at location A. IMPRESSION: 1. Relatively symmetric mild polyarticular osteoarthritis with typical distribu tion at the bilateral hands and wrists. IMPRESSION: 1. Relatively symmetric mild polyarticular osteoarthritis with typical distribu tion at the bilateral hands and wrists. IMPRESSION: 1. Relatively symmetric mild polyarticular osteoarthritis with typical distribu tion at the bilateral hands and wrists.
--- NOTE | ~2022-03-29 | XR_ITS ---
EXAM: XR foot RT 2V, XR foot LT 2V DATE: 03/29/2022 12:26 HISTORY: MULTIPLE JOINT PAIN . COMPARISON: 11/17/2016. FINDINGS: Normal mineralization. No fracture or dislocation. No lytic or blastic lesion. Moderate ri ght hallux valgus and first MTP osteoarthritis. Mild degenerative change at the left first MTP joint. Prominent bilateral Achilles and plantar enthesopathy. No erosion or periosteal change. Soft tissues within normal limits. IMPRESSION: Moderate right hallux valgus and first MTP osteoarthritis. Mild left first MTP osteoarthr itis. Bilateral Achilles and plantar enthesopathy. Reviewed, dictated and finalized at location K. IMPRESSION: Moderate right hallux valgus and first MTP osteoarthritis. Mild lef t first MTP osteoarthritis. Bilateral Achilles and plantar enthesopathy.
--- NOTE | ~2022-03-29 | XR_ITS ---
EXAM: XR hip RT min 2V DATE: 03/29/2022 12:26 HISTORY: MULTIPLE JOINT PAIN . COMPARISON: 11/17/2016. FINDINGS: Decreased mineralization. No fracture or dislocation. No lytic or blastic lesion. Mild sup erior joint space narrowing in the right hip. Mild osteitis pubis. No erosion or periosteal change. S oft tissues within normal limits. IMPRESSION: Mild right hip osteoarthritis. Mild osteitis pubis. Reviewed, dictated and finalized at location K.
--- NOTE | ~2022-03-29 | XR_ITS ---
EXAMINATION: XR shoulder LT min 2V DATE: 03/29/2022 12:26 INDICATION: Multiple joint pain including at the left shoulder TECHNIQUE: AP and axillary views of the left shoulder were obtained. COMPARISON: None FINDINGS: Bone alignment is normal at the left shoulder. Mild thoracic dextrocurvature. No fracture. No signif icant interval change in mild left glenohumeral and moderate left acromioclavicular osteoarthritis. V isualized portion of the lungs are clear. Soft tissues are unremarkable. IMPRESSION: Mild left glenohumeral and moderate acromioclavicular osteoarthritis. Reviewed, dictated and finalized at location A.
--- NOTE | ~2022-03-29 | XR_ITS ---
EXAMINATION: XR hip LT min 2V DATE: 03/29/2022 12:26 INDICATION: Multiple joint pain. TECHNIQUE: 2 views of left hip were obtained. COMPARISON: Left hip radiograph 11/17/2016 FINDINGS: Bone alignment is normal. No fracture. Left hip joint space is normal. IMPRESSION: 1. Normal left hip. Reviewed, dictated and finalized at location A. IMPRESSION: 1. Normal left hip.
--- NOTE | ~2022-03-29 | XR_ITS ---
EXAMINATION: XR knee LT 2V, XR knee RT 2V DATE: 03/29/2022 12:26 INDICATION: Multiple joint pain at the bilateral knees TECHNIQUE: 1. Supine AP and lateral views of the left knee were obtained. 2. Supine AP views of the right knee were obtained.. COMPARISON: 01/28/2021 FINDINGS: Bone alignment is normal at both knees. No fracture. Mild joint space narrowing in the right patellof emoral compartment. Remaining joint spaces appear normal on nonweightbearing imaging. Soft tissues ar e unremarkable with no knee joint effusion on either the left or right. IMPRESSION: 1. Mild osteoarthritis at the patellofemoral compartment of the right knee. 2. Unremarkable nonweightbearing left knee radiographs. Reviewed, dictated and finalized at location A. IMPRESSION: 1. Mild osteoarthritis at the patellofemoral compartment of the right knee. 2. Unremarkable nonweightbearing left knee radiographs.
== END 2022-03-29 11:18 | disposition home or self-care (01) ==
PROVIDERS: PCP Family Medicine; Visit Provider Internal Medicine Rheumatology
DX: M20.11 Hallux valgus (acquired), right foot (principal); M19.071 Primary osteoarthritis, right ankle and foot; M19.072 Primary osteoarthritis, left ankle and foot; M77.31 Calcaneal spur, right foot; M77.32 Calcaneal spur, left foot; M16.11 Unilateral primary osteoarthritis, right hip; M17.11 Unilateral primary osteoarthritis, right knee; M19.012 Primary osteoarthritis, left shoulder; M19.041 Primary osteoarthritis, right hand; M19.042 Primary osteoarthritis, left hand; M19.031 Primary osteoarthritis, right wrist; M19.032 Primary osteoarthritis, left wrist
CPT/HCPCS: 73030; 73070; 73100; 73120; 73502; 73560; 73620

== ENCOUNTER 2022-04-17 13:23 | Outpatient (CLI) | payer OTHER, MEDICARE, SELFPAY ==
--- NOTE | ~2022-04-17 | XR_ITS ---
EXAMINATION: XR chest 2V Exam Date/Time: 04/17/2022 13:35 CDT HISTORY: dyspnea on exertion,HX:htn, covid (10/2020), persistent cough Comparison: 11/01/2020. RESULT: Lines, tubes, and devices: None. Lungs and pleura: Clear. Cardiomediastinal silhouette: Stable. Other: No acute osseous or upper abdominal finding. IMPRESSION: No acute cardiopulmonary process. Reviewed, dictated and finalized at location K.
== END 2022-04-17 13:24 | disposition home or self-care (01) ==
PROVIDERS: PCP Family Medicine; Visit Provider Nurse Practitioner Adult Health
DX: R06.00 Dyspnea, unspecified (principal)
CPT/HCPCS: 71046

== ENCOUNTER 2022-04-28 07:58 | Outpatient (CLI) | payer OTHER, MEDICARE, SELFPAY ==
--- NOTE | 2022-04-28 12:21 | WPDPFTINT ---
PFT Procedure Performed PFT Procedure Performed Plethysmography (Lung Vol) Diffusing Cap (DLCO) Flow Vol Loop Spirometry w/o Bronchodil PFT Interpretation This is a pulmonary function test with spirometry, plethysmography and diffusing capacity. The test was performed and results interpreted in accordance with the 2019 and 2005 ATS/ERS Task Force guidelines respectively using the Global Lung Function Initiative-2012 reference equations. Patient demonstrated good effort and cooperation. Reproducibility criteria were met. The quality of the spirometry maneuver was Grade A. Findings: Spirometry: the contour the inspiratory and expiratory flow tracing are normal. The FVC is 2.54 L, 100% predicted. The FEV1 is 1.96 L, 100% predicted. The FEV1: FVC ratio 77%. Plethysmography: The total lung capacity is 3.91 L, 83% predicted. The functional residual capacity is 2.27 L, 84% predicted. The residual volume is 1.37 L, 64% predicted. Diffusing capacity: The diffusing capacity on adjusted for hemoglobin and carboxyhemoglobin is 12.4, 64% predicted. The diffusing capacity adjusted for alveolar volume is 3.45, 80% predicted. The diffusing capacity unadjusted for hemoglobin is mildly decreased and normalizes when adjusted for alveolar volume. There are no prior studies for comparison
== END 2022-04-28 07:59 | disposition home or self-care (01) ==
LOC: ANHPFT 08:00
PROVIDERS: PCP Family Medicine; Visit Provider Nurse Practitioner Adult Health
DX: R06.00 Dyspnea, unspecified (principal)
CPT/HCPCS: 94375; 94726; 94729

== ENCOUNTER 2022-05-25 07:40 | Outpatient (CLI) | payer OTHER, MEDICARE, SELFPAY ==
--- NOTE | ~2022-05-25 | NM_ITS ---
EXAMINATION: NM hepatobiliary wo pharm DATE: 05/25/2022 09:53 INDICATION: Upper abdominal pain. COMPARISON: CT abdomen and pelvis 04/17/2015 TECHNIQUE: 6 mCi Tc-99m mebrofenin (Choletec) was administered intravenously. Scintigraphic images o f the abdomen were obtained for one hour. Then, the patient drank 8 oz Ensure, and imaging was contin ued for 60 minutes. FINDINGS: There is normal clearance of radiotracer from the blood pool. There is homogeneous tracer u ptake by the liver. Activity progresses to the bowel and gallbladder. Gallbladder ejection fraction (GBEF) was 17%. Note that with this technique, normal GBEF >= 33%. IMPRESSION: 1. Low gallbladder ejection fraction, consistent with gallbladder dysfunction and/or chronic cholecy stitis. Reviewed, dictated and finalized at location B. IMPRESSION: 1. Low gallbladder ejection fraction, consistent with gallbladder dysfunction and/or chronic cholecystitis.
== END 2022-05-25 07:41 | disposition home or self-care (01) ==
PROVIDERS: PCP Family Medicine; Visit Provider Surgery
DX: K82.8 Other specified diseases of gallbladder (principal); R10.10 Upper abdominal pain, unspecified
CPT/HCPCS: 78226; A9537

== ENCOUNTER 2022-07-12 15:09 | Outpatient (CLI) | payer OTHER, MEDICARE, SELFPAY ==
[2022-07-12 15:25] LABS: Basophils Percent Auto 0.4 % (0.2-1.2); Eosinophils Absolute Auto 0.1 K/mm3 (0-0.3); Hematocrit 39.9 % (37.0-47.0); Hemoglobin 13.4 g/dL (12.0-15.0); Immature Granulocyte Absolute 0.03 K/mm3 (0.00-0.031); Immature Granulocyte Percent A 0.4 % (0-0.5); Lymphocytes Absolute Auto 3.15 K/mm3 (0.9-3.2); Lymphocytes Percent Auto 39.3 % (18.3-44.2); Mean Corpuscular HGB Conc 33.6 g/dl (32-36); Mean Corpuscular Volume 89.3 fl (80-100); Mean Platelet Volume 10.6 fl (7.4-10.4); Monocytes Absolute Auto 0.5 K/mm3 (0.1-0.6); Monocytes Percent Auto 6.4 % (2.6-8.5); Neutrophils Absolute Auto 4.2 K/mm3 (1.3-6.7); Neutrophils Percent Auto 52.5 % (45.5-73.1); Platelet Count Result 239 k/mm3 (150-375); Red Blood Count 4.47 M/mm3 (4.2-5.4); Red Cell Distribution Width 13.2 % (11.5-14.5)
[2022-07-12 16:44] LABS: Immunoglobulin A 75 mg/dL (70-400); Immunoglobulin G 1100 mg/dL (700-1600); Immunoglobulin M 40 mg/dL (40-230)
[2022-07-12 16:45] LABS: Alanine Aminotransferase 38 U/L (6-35); Albumin Level 4.4 g/dL (3.5-5.1); Alkaline Phosphatase 70 U/L (38-126); Anion Gap 11 mmol/L (8-16); Aspartate Amino Transferase 36 U/L (14-36); Bilirubin,Total 0.3 mg/dL (0.2-1.3); Blood Urea Nitrogen 19 mg/dL (7-17); Calcium 9.2 mg/dL (8.4-10.2); Carbon Dioxide 22 mmol/L (22-30); Chloride 105 mmol/L (98-107); Estimated Glomerular Filt Rate 32; Glucose 189 mg/dL (65-110); Potassium 4.1 mmol/L (3.4-5.0); Sodium 138 mmol/L (137-145)
== END 2022-07-12 15:10 | disposition home or self-care (01) ==
PROVIDERS: PCP Family Medicine; Visit Provider Internal Medicine Hematology & Oncology
DX: D80.1 Nonfamilial hypogammaglobulinemia (principal)
CPT/HCPCS: 36415; 80053; 82784; 85025

== ENCOUNTER 2022-08-31 08:57 | Outpatient (CLI) | payer OTHER, MEDICARE, SELFPAY ==
--- NOTE | ~2022-08-31 | MM_ITS ---
EXAMINATION: MM screening [facility] HISTORY: Screening mammogram TECHNIQUE: Craniocaudal and mediolateral oblique 3-D tomosynthesis images were obtained and synthetic 2-D images were generated. CAD analysis was submitted and interpreted. COMPARISON: No prior mammogram is available for comparison at this institution. BREAST PARENCHYMAL COMPOSITION: There are scattered areas of fibroglandular density. FINDINGS: There is no evidence of suspicious mass, calcification, or architectural distortion to sugg est malignancy in either breast. There has been no suspicious interval change. IMPRESSION: 1. No mammographic evidence of malignancy. 2. Recommend routine screening mammography in one year. BI-RADS Category 1: Negative Reviewed, dictated and finalized at location A. NESS OPERATIONS CONSULTANT
== END 2022-08-31 08:58 | disposition home or self-care (01) ==
PROVIDERS: PCP Family Medicine; Visit Provider Family Medicine
DX: Z12.31 Encounter for screening mammogram for malignant neoplasm of breast (principal)
CPT/HCPCS: 77063; 77067

== ENCOUNTER 2022-09-16 11:10 | Outpatient (CLI) | payer OTHER, MEDICARE, SELFPAY ==
[2022-09-16 11:44] LABS: Hematocrit 41.8 % (37.0-47.0); Mean Corpuscular HGB Conc 33.5 g/dl (32-36); Mean Corpuscular Hemoglobin 30.5 pg (26-34); Mean Corpuscular Volume 91.1 fl (80-100); Mean Platelet Volume 11.1 fl (7.4-10.4); Platelet Count Result 233 k/mm3 (150-375); Red Blood Count 4.59 M/mm3 (4.2-5.4); White Blood Count 8.1 K/mm3 (4.5-10.0)
[2022-09-16 12:15] LABS: Parathyroid Intact 33.4 pg/mL (7.5-53.5)
[2022-09-16 12:18] LABS: Albumin Level 4.5 g/dL (3.5-5.1); Anion Gap 8 mmol/L (8-16); Blood Urea Nitrogen 19 mg/dL (7-17); Calcium 9.3 mg/dL (8.4-10.2); Carbon Dioxide 26 mmol/L (22-30); Chloride 104 mmol/L (98-107); Estimated Glomerular Filt Rate 28; Glucose 149 mg/dL (65-110); Phosphorus 2.9 mg/dL (2.5-4.5); Potassium 4.5 mmol/L (3.4-5.0); Sodium 138 mmol/L (137-145)
[2022-09-16 12:20] LABS: Creatinine Urine 30.4 mg/dL; Total Protein Urine Random 14 mg/dL; Ur Ttl Prot Creatinine Ratio 0.46 mg/mg (0-0.20)
== END 2022-09-16 11:11 | disposition home or self-care (01) ==
PROVIDERS: PCP Family Medicine; Visit Provider Internal Medicine Nephrology
DX: N18.32 Chronic kidney disease, stage 3b (principal)
CPT/HCPCS: 36415; 80069; 82570; 83970; 84156; 85027

== ENCOUNTER 2022-10-20 12:30 | Outpatient (CLI) | payer OTHER, MEDICARE, SELFPAY ==
[2022-10-20 13:47] LABS: HIV 1/2 Ab P24 Ag Result Negative (Negative)
[2022-10-20 14:02] LABS: Hepatitis B Surface Antigen Negative (Negative)
[2022-10-20 14:19] LABS: Hepatitis C Virus Antibody Negative (Negative)
[2022-10-21 15:56] LABS: Rapid Plasma Reagin Non-Reactive (NonReactive)
== END 2022-10-20 12:31 | disposition home or self-care (01) ==
PROVIDERS: PCP Family Medicine; Visit Provider Registered Nurse
DX: Z20.2 Contact with and (suspected) exposure to infections with a predominantly sexual mode of transmission (principal)
CPT/HCPCS: 36415; 86592; 86703; 86803; 87340; G0432

== ENCOUNTER 2022-11-03 12:17 | Outpatient (CLI) | payer OTHER, MEDICARE, SELFPAY ==
--- NOTE | 2022-11-03 12:30 | ECG_ITS ---
Measurements Intervals [place] Rate: 69 P: 1 WV: 172 QRS: 0 QRSD: 93 T: 51 QT: 398 QTc: 427 Interpretive Statements SINUS RHYTHM CONSIDER INFERIOR INFARCT, AGE INDETERMINATE NONSPECIFIC T-WAVE ABNORMALITY- ANTERIOR LEADS BASELINE ARTIFACT- V5 ABNORMAL ECG COMPARED TO ECG 12/23/2019 03:14:08 T-WAVE ABNORMALITY NOW PRESENT Electronically Signed On 11-03-2022 14:05:20 CDT by Davide Jenkins D.O.
[2022-11-03 12:57] LABS: Alanine Aminotransferase 59 U/L (6-35); Albumin Level 4.4 g/dL (3.5-5.1); Alkaline Phosphatase 87 U/L (38-126); Amylase 128 U/L (30-110); Aspartate Amino Transferase 47 U/L (14-36); Bilirubin,Total 0.4 mg/dL (0.2-1.3); Lipase 183 U/L (23-300)
[2022-11-03 12:58] LABS: Prothrombin Time 12.9 Seconds (11.1-14.7)
[2022-11-03 12:59] LABS: Partial Thromboplastin Time 26.3 SECONDS (22.3-36.8)
== END 2022-11-03 12:18 | disposition home or self-care (01) ==
LOC: ANHSURGERY 12:24
PROVIDERS: Anesthesiology; PCP Family Medicine; Visit Provider Surgery
DX: K82.8 Other specified diseases of gallbladder (principal); I10 Essential (primary) hypertension; N18.30 Chronic kidney disease, stage 3 unspecified; Z01.818 Encounter for other preprocedural examination
CPT/HCPCS: 36415; 80076; 82150; 83690; 85610; 85730; 86850; 86900; 86901; 93005

== ENCOUNTER 2022-11-19 00:55 | Day surgery (SDC) | payer OTHER, MEDICARE, SELFPAY ==
[2022-11-03 09:30] VITALS: BMI 29.4
--- NOTE | 2022-11-03 09:54 | PC.NURSE ---
Report to the Outpatient Waiting Room, entrance under the green pavilion located off [facility], at time __6:30AM on date ___11/05/22____. Planned Procedure Time: ___8:30AM . Time changes happen often and if your time is changed the preop area will call you the afternoon before. - You and your visitor will be asked to self-screen and do not enter if you have any COVID symptoms. - Only one visitor is requested with a max of two and NO children visitors are allowed at this time. - The patient visitor may be requested to leave or wait in car when not with patient due to distancing restrictions. - A mask is optional within the hospital at this time. Patients may have clear liquids (water, carbonated beverages, clear teas, apple juice) until 3 hours prior to surgery with a maximum of 20 ounces. - No food from midnight until time of surgery Take the following medications with a SIP of water the morning of surgery: ____ALPRAZOLAM, METOPROLOL, HYDROCODONE NEEDED DO NOT STOP ANY OF YOUR OTHER PRESCRIPTION MEDICATIONS PRIOR TO SURGERY ?EXCEPT THE FOLLOWING Medications to discontinue per physician ____NONE Please no make-up, nail upper sorbian, hairspray, perfume, deodorant, or body powder the day of surgery. No jewelry (including any body piercings) or valuables the day of surgery, leave them at home. Please take a shower or bath the night before, or the morning of, surgery with an antibacterial soap. Wear comfortable, loose fitting clothing. Children are encouraged to wear pajamas. - Jewelry must be removed prior to entering the operating room. Rings and piercings that are not removed may be cut off. - The hospital will not accept responsibility for valuables. - Please leave all valuables, including medications, at home the day of surgery. If you are going home after surgery, a licensed fire truck driver must drive you home. - NO public transportation without another adult if you receive anesthesia. - We recommend that an adult stay with you for 24 hours following discharge. - We also recommend that you do not drive, make important decision, drink alcoholic beverages, or take any drugs that were not prescribed by your health care provider for at least 24 hours after your discharge time. Follow any additional instructions given to you from your surgeon. HIBICLENS SHOWER MORNING OF SURGERY If you or anyone in your household have experienced Covid symptoms in the past week, please notify your surgeon or the nurse liaison at the phone number below for possible testing. Telephone instructions given to ____PATIENT and asked if any additional questions and then verbalized understanding. Patient advised to call surgeon office or pre surgery nurse liaison [phone] if any additional questions.
--- NOTE | 2022-11-11 14:34 | PC.NURSE ---
Report to the Outpatient Waiting Room, entrance under the green pavilion located off [facility], at time __7:00AM on date __11/19/22 . Planned Procedure Time: __9:00AM . Time changes happen often and if your time is changed the preop area will call you the afternoon before. - You and your visitor will be asked to self-screen and do not enter if you have any COVID symptoms. - Only one visitor is requested with a max of two and NO children visitors are allowed at this time. - The patient visitor may be requested to leave or wait in car when not with patient due to distancing restrictions. - A mask is optional within the hospital at this time. Patients may have clear liquids (water, carbonated beverages, clear teas, apple juice) until 3 hours prior to surgery with a maximum of 20 ounces. - No food from midnight until time of surgery Take the following medications with a SIP of water the morning of surgery: __ALPRAZOLAM, METOPROLOL, HYDROCODONE NEEDED DO NOT STOP ANY OF YOUR OTHER PRESCRIPTION MEDICATIONS PRIOR TO SURGERY ?EXCEPT THE FOLLOWING Medications to discontinue per physician NONE Date to take last dose Please no make-up, nail moldovan, hairspray, perfume, deodorant, or body powder the day of surgery. No jewelry (including any body piercings) or valuables the day of surgery, leave them at home. Please take a shower or bath the night before, or the morning of, surgery with an antibacterial soap. Wear comfortable, loose fitting clothing. Children are encouraged to wear pajamas. - Jewelry must be removed prior to entering the operating room. Rings and piercings that are not removed may be cut off. - The hospital will not accept responsibility for valuables. - Please leave all valuables, including medications, at home the day of surgery. If you are going home after surgery, a licensed truck driver teamster must drive you home. - NO public transportation without another adult if you receive anesthesia. - We recommend that an adult stay with you for 24 hours following discharge. - We also recommend that you do not drive, make important decision, drink alcoholic beverages, or take any drugs that were not prescribed by your health care provider for at least 24 hours after your discharge time. Follow any additional instructions given to you from your surgeon. *HIBICLENS SHOWER MORNING OF SURGERY If you or anyone in your household have experienced Covid symptoms in the past week, please notify your surgeon or the nurse liaison at the phone number below for possible testing. Telephone instructions given to _PATIENT and asked if any additional questions and then verbalized understanding. Patient advised to call surgeon office or pre surgery nurse liaison [phone] if any additional questions.
[2022-11-19] VITALS (9 sets, daily range): BP systolic 127–157; BP diastolic 58–76; PULSE 53–65; RESP 12–17; TEMP 36.1; O2SAT 96–100
[2022-11-19] MEDS: ACETAMINOPHEN 500 MG TABLET 1000 MG PO (07:37)
--- NOTE | 2022-11-19 07:56 | WPDANESEPPF ---
Anes - Initial Pre Proc Eval Procedure: Operation Date: 11/19/22 09:00 Proposed Procedures p Laparoscopic Cholecystectomy, Possible Open - Aaron Lara MD Date/Time: 11/19/22 07:57 Surgeon: Aaron Lara MD Pre Op Diagnosis: symp gallbladder sludge and dysfunction Patient Data Age: 72 Gender: F Height: 1.57 m Weight: 72 kg Allergies Allergy/AdvReac Type Severity Reaction Status Date / Time carbamazepine Allergy Severe Anaphylaxis Verified 11/19/22 07:32 cefuroxime Allergy Severe Anaphylaxis Verified 11/19/22 07:32 hydromorphone Allergy Severe Anaphylaxis, Verified 11/19/22 07:32 ARM SWELLING lamotrigine Allergy Severe Hives / Verified 11/19/22 07:32 Red Face paroxetine Allergy Severe Anaphylaxis Verified 11/19/22 07:32 Penicillins Allergy Severe Anaphylaxis Verified 11/19/22 07:32 Sulfa (Sulfonamide Allergy Severe Rash Verified 11/19/22 07:32 Antibiotics) levofloxacin Allergy Mild swelling Verified 11/19/22 07:32 and black discoloration at IV site trimethoprim Allergy Unknown Rash Verified 11/19/22 07:32 Iodinated Contrast Media Allergy Anaphylaxis Verified 11/19/22 07:32 mirtazapine AdvReac Severe Nausea And Verified 11/19/22 07:32 Vomiting adhesive AdvReac Intermediate Rash Verified 11/19/22 07:32 azithromycin AdvReac Intermediate Palpitation Verified 11/19/22 07:32 s prednisone AdvReac Unknown HEART BEAT Verified 11/19/22 07:32 RACING NSAIDS (Non-Steroidal AdvReac AVOIDS- Verified 11/19/22 07:32 Anti-Inflamma SEVERE KIDNEY DISEASE EGGPLANT Allergy Unknown HIVES Uncoded 11/19/22 07:32 Home Medications Medication Instructions Recorded Confirmed Type metoprolol succinate 25 mg 25 mg PO BID 01/09/21 11/19/22 History tablet,extended release 24 hr alprazolam 0.5 mg tablet 0.5 mg PO QID PRN Anxiety 08/19/21 11/19/22 History aspirin 325 mg tablet,delayed 325 mg PO DAILY 08/19/21 11/19/22 History release hydrocodone 10 mg-acetaminophen 1 tablet PO Q6-8H PRN Pain 08/19/21 11/19/22 History 325 mg tablet nitroglycerin 0.4 mg sublingual 0.4 mg sublingual Q5M PRN Chest 05/14/22 11/19/22 History tablet Pain prochlorperazine maleate 10 mg 10 mg PO Q8H PRN nausea #20 tabs 11/02/22 11/19/22 Rx tablet valacyclovir 1 gram tablet 1,000 mg PO TID PRN Outbreak 11/02/22 11/19/22 History benzonatate 200 mg capsule 200 mg PO TID PRN cough #30 caps 11/04/22 11/19/22 Rx cyclobenzaprine 5 mg tablet 5 mg PO TID PRN muscle spasm #30 11/16/22 11/19/22 Rx tabs Patient hx anesthesia problems: none Family hx anesthesia problems: none Results Review: All pre-operative results and documents have been reviewed as part of the pre-operative evaluation. [facility] Past Medical History Medical History (Updated 11/18/22 @ 10:33 by Vivek Reyes, ) Anxiety Aortic stenosis mild Aortic valve defect Arthritis Chronic EBV infection CKD (chronic kidney disease) stage 3, GFR 30-59 ml/min Diverticulitis Gwen Rivera infection Essential (primary) hypertension History of COVID-19 10/2020 Lumbar spondylosis with myelopathy Migraine without aura Psoriatic arthritis PTSD (post-traumatic stress disorder) Recurrent genital herpes Surgical History Surgical History H/O knee surgery (~01/2021) 08/29 History of hysterectomy (~1987) Hx of tonsillectomy (~1952) Family History Family History Father Family history of lung cancer Patient's father is Mother Family history of lung cancer Patient's mother is Hypertension Depression Thyroid disease Sibling Family history of malignant neoplasm Asthma Other Bladder cancer Brain cancer Breast cancer Family history of alcoholism Family history of arthritis Family history of seizure disorder Social History Social Histor
[2022-11-19 08:11] LABS: Anion Gap 10 mmol/L (8-16); Blood Urea Nitrogen 19 mg/dL (7-17); Calcium 9.5 mg/dL (8.4-10.2); Carbon Dioxide 23 mmol/L (22-30); Chloride 105 mmol/L (98-107); Estimated CRCL calculation 29 ml/min; Estimated Glomerular Filt Rate 37; Glucose 149 mg/dL (65-110); Potassium 3.9 mmol/L (3.4-5.0); Sodium 138 mmol/L (137-145)
[2022-11-19] MEDS: LACTATED RINGERS 1,000 ML 30 ML IV CONT (08:33)
--- NOTE | 2022-11-19 10:09 | WPDHPUPDATE1 ---
History and Physical Update Update Date/Time: 11/19/22 10:09 History and Physical has been reviewed, including an updated exam of the patient. There are NO changes in the patient's condition. Risks, benefits, and alternatives have been discussed and questions answered. Patient agrees to proceed with procedure.
[2022-11-19] MEDS: CLINDAMYCIN 900 MG/D5W 50 ML 900 MG/50 ML PIGGYBACK 50 MG IVPB (10:25)
[2022-11-19] MEDS: LIDO 1%/EPINEPHRINE 1:100,000 50 ML VIAL 20 ML INFILTRATE (10:50)
[2022-11-19] MEDS: fentaNYL CITRATE INJ (*CRX) 100 MCG/2 ML VIAL 25 MCG IV PUSH ×4 (12:13→12:48)
[2022-11-19] MEDS: oxyCODONE HCL (*CRX) 5 MG TAB IR PO (13:33)
--- NOTE | 2022-11-19 14:21 | W.PM.PROC2 ---
Procedure Note - Detailed Date of Procedure 11/19/22 Pre-op Diagnosis symp gallbladder sludge and dysfunction Post-op Diagnosis Same Procedure Performed Laparoscopic cholecystectomy. Surgeon Aaron Lara MD Anesthesia General Indications Patient is a 72-year-old female who has been complaining of right upper quadrant abdominal pain and nausea. Workup showed no evidence of gallstones but some gallbladder sludge. HIDA scan showed dysfunction of the gallbladder. She presents now for elective laparoscopic cholecystectomy due to biliary colic and gallbladder sludge and gallbladder dysfunction. Findings The gallbladder itself was normal in appearance. There is no chronic thickening of the gallbladder wall or adhesions to the gallbladder wall. Description of Procedure After informed consent was obtained patient brought to the operating room where she was placed in supine position and general endotracheal anesthesia was administered. The abdomen was then prepped and draped in usual sterile fashion. A time-out was then performed correctly identifying the patient as well as the procedure to be performed verifying the patient was given perioperative IV antibiotics. Then proceeded by entering the abdomen the left upper quadrant utilizing a 5mm Optiview port. Once inside the abdomen insufflated to adequate pneumoperitoneum of 15mmHg of CO2. There were no adhesions around the umbilicus and so then I placed a 5mm periumbilical trocar port under direct visualization. Laparoscopic switched to the periumbilical trocar port and looking to the upper portions the abdomen I placed an epigastric 10mm trocar port and 2 right lateral subcostal 5mm trocar ports all under direct visualization. The gallbladder visualized it was distended but without any gallbladder wall thickening and no adhesions to the gallbladder. The gallbladder was held laparoscopic grasper and elevated with the right half of the liver towards the right shoulder. A 2nd grasper was used to hold the gallbladder at the infundibulum. I then proceeded to strip down the visceral peritoneum off of the infundibulum gallbladder identified the cystic duct. The cystic duct was then dissected out circumferentially. The cystic artery was identified was dissected out circumferentially as well. The posterior wall the gallbladder at the infundibulum dissected free of the liver into the critical view was obtained. At this point I placed 2 clips proximally cystic duct and 2 clips distally high on infundibular gallbladder. The cystic duct was then divided Endo Mitul. In a similar fashion cystic artery was then clipped and divided as well. The gallbladder was then resected off the liver electrocautery. Once was freed from liver is placed into an Endo-Catch bag and brought out through the epigastric port site. The gallbladder is contents were sent to pathology for examination. I then irrigated out the right upper quadrant the abdomen the gallbladder fossa copious amounts of sterile saline solution. Hemostasis was good there is no evidence of bile leak. I then aspirated the fluid from the right upper quadrant of the abdomen from the pelvis. I then removed all the trocar ports under direct visualization all port sites appeared hemostatic. I then allowed the abdomen decompressed. The port sites then irrigated sterile saline solution they were hemostatic. I then closed the epigastric 10mm trocar port fascial defect utilizing 0 Vicryl suture. The incisions were then all closed utilizing a running subcuticular 4-0 Monocryl suture. The incisions were then cleaned and then skin glue was applied. The patient tolerated the procedure well no complications. All sponges, needles, and instrument counts were correct at the end procedure. EBL was _20__cc. The patient was awakened and taken to recovery in stable and satisfactory condition. Implants None Estimated Blood Loss 20.0 Drains No Packing No Pathology Yes (
== END 2022-11-19 14:22 | disposition home or self-care (01) ==
PROVIDERS: PCP Family Medicine; Visit Provider Surgery
PROC: 0FT44ZZ Resection of Gallbladder, Percutaneous Endoscopic Approach (ICD-10-PCS; CPT 47562; principal; 2022-11-19 09:00)
DX: K80.10 Calculus of gallbladder with chronic cholecystitis without obstruction (principal); I12.9 Hypertensive chronic kidney disease with stage 1 through stage 4 chronic kidney disease, or unspecified chronic kidney disease; N18.30 Chronic kidney disease, stage 3 unspecified; F41.9 Anxiety disorder, unspecified; I35.0 Nonrheumatic aortic (valve) stenosis; B27.00 Gammaherpesviral mononucleosis without complication; Z79.82 Long term (current) use of aspirin
CPT/HCPCS: 47562; 36415; 80048; 86850; 86900; 86901; 88304; A9270; C1713; J1100; J2250; J2405; J2704; J2710; J3010; J7030; J7120

== ENCOUNTER 2023-02-23 15:17 | Outpatient (CLI) | payer OTHER, MEDICARE, SELFPAY ==
--- NOTE | ~2023-02-23 | XR_ITS ---
XR elbow LT min 3V DATE: 02/23/2023 15:37 INDICATION: Left elbow pain. No injury. TECHNIQUE: 4 views COMPARISON: None FINDINGS: Prominent dorsal olecranon process spur. No fracture or dislocation or joint effusion. No periosteal reaction or bone destruction. IMPRESSION: Dorsal olecranon process spur Reviewed, dictated and finalized at location B.
== END 2023-02-23 15:18 | disposition home or self-care (01) ==
PROVIDERS: PCP Family Medicine; Visit Provider Family Medicine
DX: M25.522 Pain in left elbow (principal); G89.29 Other chronic pain
CPT/HCPCS: 73080

== ENCOUNTER 2023-03-02 14:28 | Outpatient (CLI) | payer OTHER, MEDICARE, SELFPAY ==
[2023-03-02 15:50] LABS: Hematocrit 41.5 % (37.0-47.0); Hemoglobin 13.7 g/dL (12.0-15.0); Mean Corpuscular Hemoglobin 29.7 pg (26-34); Mean Corpuscular Volume 89.8 fl (80-100); Mean Platelet Volume 11.3 fl (7.4-10.4); Platelet Count Result 259 k/mm3 (150-375); Red Blood Count 4.62 M/mm3 (4.2-5.4); Red Cell Distribution Width 12.9 % (11.5-14.5); White Blood Count 10.4 K/mm3 (4.5-10.0)
[2023-03-02 16:08] LABS: Alanine Aminotransferase 53 U/L (6-35); Albumin Level 4.4 g/dL (3.5-5.1); Alkaline Phosphatase 86 U/L (38-126); Anion Gap 11 mmol/L (8-16); Aspartate Amino Transferase 45 U/L (14-36); Bilirubin,Total 0.4 mg/dL (0.2-1.3); Blood Urea Nitrogen 31 mg/dL (7-17); CRP 1.5 mg/dL (<1.0); Carbon Dioxide 21 mmol/L (22-30); Chloride 107 mmol/L (98-107); Estimated Glomerular Filt Rate 32; Glucose 176 mg/dL (65-110); Potassium 4.1 mmol/L (3.4-5.0); Sodium 139 mmol/L (137-145); Uric Acid 6.5 mg/dL (2.5-7.5)
[2023-03-02 16:44] LABS: Erythrocyte Sedimentation Rate 16 mm/hr (0-20)
[2023-03-02 17:14] LABS: Folic Acid > 20.0 ng/mL (2.76->20)
[2023-03-02 18:05] LABS: Vitamin D 25 Hydroxy 48.2 ng/mL
== END 2023-03-02 14:29 | disposition home or self-care (01) ==
LOC: ANHLAB 14:30
PROVIDERS: PCP Family Medicine; Visit Provider Internal Medicine Rheumatology
DX: M19.90 Unspecified osteoarthritis, unspecified site (principal); E55.9 Vitamin D deficiency, unspecified; E53.8 Deficiency of other specified B group vitamins; Z51.81 Encounter for therapeutic drug level monitoring; Z79.899 Other long term (current) drug therapy
CPT/HCPCS: 36415; 80053; 82306; 82607; 82746; 84550; 85027; 85652; 86140

== ENCOUNTER 2023-03-03 09:01 | Outpatient (CLI) | payer OTHER, MEDICARE, SELFPAY ==
--- NOTE | ~2023-03-03 | US_ITS ---
EXAMINATION: US soft tissue UE LT DATE: 03/03/2023 09:26 INDICATION: Localized swelling, mass and lump at the left upper limb TECHNIQUE: Multiple grayscale and Doppler ultrasound images of the region of concern at the left uppe r limb were obtained. Some additional grayscale images of the contralateral right upper arm were obta ined for comparison. COMPARISON: None FINDINGS/IMPRESSION: Normal appearance to the subcutaneous fat and underlying musculature at the left upper arm at the reg ion of concern. No abnormal masses or fluid collections identified. Reviewed, dictated and finalized at location A.
== END 2023-03-03 09:02 | disposition home or self-care (01) ==
PROVIDERS: PCP Family Medicine; Visit Provider Family Medicine
DX: R22.32 Localized swelling, mass and lump, left upper limb (principal)
CPT/HCPCS: 76882

== ENCOUNTER 2023-06-04 09:55 | Outpatient (CLI) | payer OTHER, MEDICARE, SELFPAY ==
[2023-06-04 10:58] LABS: Hematocrit 40.9 % (37.0-47.0); Hemoglobin 13.5 g/dL (12.0-15.0); Mean Corpuscular Hemoglobin 29.9 pg (26-34); Mean Corpuscular Volume 90.5 fl (80-100); Mean Platelet Volume 11.4 fl (7.4-10.4); Platelet Count Result 242 k/mm3 (150-375); Red Blood Count 4.52 M/mm3 (4.2-5.4); Red Cell Distribution Width 13.9 % (11.5-14.5); White Blood Count 8.5 K/mm3 (4.5-10.0)
[2023-06-04 11:14] LABS: Albumin Level 4.1 g/dL (3.5-5.1); Anion Gap 7 mmol/L (8-16); Blood Urea Nitrogen 18 mg/dL (7-17); Calcium 9.2 mg/dL (8.4-10.2); Carbon Dioxide 29 mmol/L (22-30); Chloride 100 mmol/L (98-107); Estimated Glomerular Filt Rate 37; Glucose 268 mg/dL (65-110); Phosphorus 3.2 mg/dL (2.5-4.5); Potassium 3.7 mmol/L (3.4-5.0); Sodium 136 mmol/L (137-145)
[2023-06-04 12:31] LABS: Creatinine Urine 14.6 mg/dL; Total Protein Urine Random 15 mg/dL; Ur Ttl Prot Creatinine Ratio 1.03 mg/mg (0-0.20)
[2023-06-04 12:36] LABS: Parathyroid Intact 44.5 pg/mL (7.5-53.5)
== END 2023-06-04 09:56 | disposition home or self-care (01) ==
PROVIDERS: PCP Family Medicine; Visit Provider Internal Medicine Nephrology
DX: N18.32 Chronic kidney disease, stage 3b (principal)
CPT/HCPCS: 36415; 80069; 82570; 83970; 84156; 85027

== ENCOUNTER 2023-06-16 09:35 | Outpatient (CLI) | payer OTHER, MEDICARE, SELFPAY ==
[2023-06-16 10:32] LABS: Alanine Aminotransferase 44 U/L (6-35); Albumin Level 4.2 g/dL (3.5-5.1); Alkaline Phosphatase 87 U/L (38-126); Anion Gap 8 mmol/L (8-16); Aspartate Amino Transferase 38 U/L (14-36); Bilirubin,Total 0.5 mg/dL (0.2-1.3); Blood Urea Nitrogen 17 mg/dL (7-17); Calcium 9.9 mg/dL (8.4-10.2); Carbon Dioxide 26 mmol/L (22-30); Chloride 102 mmol/L (98-107); Estimated Glomerular Filt Rate 34; Glucose 123 mg/dL (65-110); Potassium 4.2 mmol/L (3.4-5.0); Sodium 136 mmol/L (137-145)
[2023-06-16 10:37] LABS: Hemoglobin A1C 6.5 % (<5.7)
[2023-06-16 10:43] LABS: Creatinine Urine 14.8 mg/dL
[2023-06-16 10:58] LABS: MALB Creatinine Ratio < 40.5 mg/g (0-30); Microalbumin Urine Random < 6.0 mg/L (0-16.7)
== END 2023-06-16 09:36 | disposition home or self-care (01) ==
PROVIDERS: PCP Family Medicine; Visit Provider Family Medicine
DX: E11.9 Type 2 diabetes mellitus without complications (principal); I12.9 Hypertensive chronic kidney disease with stage 1 through stage 4 chronic kidney disease, or unspecified chronic kidney disease; N18.32 Chronic kidney disease, stage 3b
CPT/HCPCS: 36415; 80053; 82043; 83036

== ENCOUNTER 2023-06-28 15:27 | Outpatient (CLI) | payer OTHER, MEDICARE, SELFPAY ==
[2023-06-28 16:07] LABS: Basophils Percent Auto 0.4 % (0.2-1.2); Eosinophils Absolute Auto 0.2 K/mm3 (0-0.3); Eosinophils Percent Auto 1.8 % (0-4.4); Hematocrit 43.7 % (37.0-47.0); Hemoglobin 14.5 g/dL (12.0-15.0); Immature Granulocyte Absolute 0.03 K/mm3 (0.00-0.031); Immature Granulocyte Percent A 0.3 % (0-0.5); Lymphocytes Absolute Auto 3.75 K/mm3 (0.9-3.2); Lymphocytes Percent Auto 36.3 % (18.3-44.2); Mean Corpuscular HGB Conc 33.2 g/dl (32-36); Mean Corpuscular Hemoglobin 29.8 pg (26-34); Mean Corpuscular Volume 89.7 fl (80-100); Mean Platelet Volume 10.8 fl (7.4-10.4); Monocytes Absolute Auto 0.6 K/mm3 (0.1-0.6); Monocytes Percent Auto 6.1 % (2.6-8.5); Neutrophils Absolute Auto 5.7 K/mm3 (1.3-6.7); Neutrophils Percent Auto 55.1 % (45.5-73.1); Platelet Count Result 264 k/mm3 (150-375); Red Blood Count 4.87 M/mm3 (4.2-5.4); Red Cell Distribution Width 13.1 % (11.5-14.5); White Blood Count 10.3 K/mm3 (4.5-10.0)
[2023-06-28 17:39] LABS: Alanine Aminotransferase 56 U/L (6-35); Albumin Level 4.5 g/dL (3.5-5.1); Alkaline Phosphatase 92 U/L (38-126); Anion Gap 12 mmol/L (8-16); Aspartate Amino Transferase 46 U/L (14-36); Bilirubin,Total 0.4 mg/dL (0.2-1.3); Blood Urea Nitrogen 25 mg/dL (7-17); Calcium 10.3 mg/dL (8.4-10.2); Carbon Dioxide 28 mmol/L (22-30); Chloride 101 mmol/L (98-107); Estimated Glomerular Filt Rate 28; Glucose 140 mg/dL (65-110); Potassium 4.3 mmol/L (3.4-5.0); Sodium 141 mmol/L (137-145)
[2023-06-30 13:00] LABS: Albumin 4.1 g/dL (3.8-4.8); Alpha 1 Globulin 0.3 g/dL (0.2-0.3); Alpha 2 Globulin 0.9 g/dL (0.5-0.9); Beta 1 Globulin 0.4 g/dL (0.4-0.6)
[2023-07-01 21:12] LABS: Kappa\\Lambda Light Chains 1.94 (0.26-1.65); Lambda Light Chain 19.5 mg/L (5.7-26.3)
== END 2023-06-28 15:28 | disposition home or self-care (01) ==
PROVIDERS: PCP Family Medicine; Visit Provider Internal Medicine Hematology & Oncology
DX: D80.1 Nonfamilial hypogammaglobulinemia (principal)
CPT/HCPCS: 36415; 80053; 83883; 84155; 84165; 85025

== ENCOUNTER → 2023-08-10 10:32 | Outpatient (CLI) | payer OTHER, MEDICARE, SELFPAY ==
--- NOTE | ~2023-08-10 | XR_ITS ---
Clinical Indication: Cough PA and lateral views of the chest: Comparison: 04/17/2022 Findings: The lungs are clear, without evidence of focal consolidation or pleural effusion. Cardiome diastinal silhouette is within normal limits. Bones and soft tissues are unremarkable. Impression: Normal chest. Reviewed, dictated and finalized at [facility]. [employer] Impression: Normal chest.
== END ==
PROVIDERS: PCP Nurse Practitioner Family; Visit Provider Nurse Practitioner Family
DX: R05.9 Cough, unspecified (principal); I12.9 Hypertensive chronic kidney disease with stage 1 through stage 4 chronic kidney disease, or unspecified chronic kidney disease; N18.9 Chronic kidney disease, unspecified
CPT/HCPCS: 71046

== ENCOUNTER 2023-08-25 10:15 | Outpatient (CLI) | payer OTHER, MEDICARE, SELFPAY ==
[2023-08-25 11:17] LABS: Basophils Absolute Auto 0.1 K/mm3 (0.0-0.1); Basophils Percent Auto 0.4 % (0.2-1.2); Eosinophils Absolute Auto 0.3 K/mm3 (0-0.3); Eosinophils Percent Auto 2.4 % (0-4.4); Hematocrit 43.3 % (37.0-47.0); Hemoglobin 13.9 g/dL (12.0-15.0); Immature Granulocyte Absolute 0.09 K/mm3 (0.00-0.031); Immature Granulocyte Percent A 0.8 % (0-0.5); Lymphocytes Absolute Auto 3.66 K/mm3 (0.9-3.2); Lymphocytes Percent Auto 30.8 % (18.3-44.2); Mean Corpuscular HGB Conc 32.1 g/dl (32-36); Mean Corpuscular Volume 90.2 fl (80-100); Mean Platelet Volume 11.6 fl (7.4-10.4); Monocytes Absolute Auto 0.7 K/mm3 (0.1-0.6); Monocytes Percent Auto 6.1 % (2.6-8.5); Neutrophils Absolute Auto 7.1 K/mm3 (1.3-6.7); Neutrophils Percent Auto 59.5 % (45.5-73.1); Platelet Count Result 239 k/mm3 (150-375); Red Cell Distribution Width 13.5 % (11.5-14.5); White Blood Count 11.9 K/mm3 (4.5-10.0)
[2023-08-25 13:52] LABS: Alanine Aminotransferase 50 U/L (6-35); Albumin Level 4.2 g/dL (3.5-5.1); Alkaline Phosphatase 82 U/L (38-126); Anion Gap 11 mmol/L (8-16); Aspartate Amino Transferase 45 U/L (14-36); Bilirubin,Total 0.5 mg/dL (0.2-1.3); Blood Urea Nitrogen 14 mg/dL (7-17); Calcium 10.1 mg/dL (8.4-10.2); Carbon Dioxide 22 mmol/L (22-30); Chloride 105 mmol/L (98-107); Estimated Glomerular Filt Rate 34; Glucose 122 mg/dL (65-110); Potassium 3.9 mmol/L (3.4-5.0); Sodium 138 mmol/L (137-145)
== END 2023-08-25 10:16 | disposition home or self-care (01) ==
PROVIDERS: PCP Nurse Practitioner Family; Visit Provider Internal Medicine Rheumatology
DX: Z51.81 Encounter for therapeutic drug level monitoring (principal)
CPT/HCPCS: 36415; 80048; 80076; 85025

== ENCOUNTER 2023-09-02 15:06 | Outpatient (CLI) | payer OTHER, MEDICARE, SELFPAY ==
--- NOTE | ~2023-09-02 | XR_ITS ---
EXAMINATION: XR sinus min 3V DATE: 09/02/2023 15:32 INDICATION: Chronic sinusitis, unspecified. TECHNIQUE: 5 views of the paranasal sinuses were obtained. COMPARISON: Head CT 11/01/2020 FINDINGS: There is leftward deviation of the nasal septum. No fracture. There is mucosal thickening i n right maxillary sinus. IMPRESSION: 1. Mucosal thickening in right maxillary sinus. 2. Leftward deviation of the nasal septum. Reviewed, dictated and finalized at location E. 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
== END 2023-09-02 15:07 | disposition home or self-care (01) ==
PROVIDERS: PCP Nurse Practitioner Family; Visit Provider Family Medicine
DX: J32.9 Chronic sinusitis, unspecified (principal); J34.2 Deviated nasal septum
CPT/HCPCS: 70220

== ENCOUNTER 2023-10-10 09:28 | Outpatient (CLI) | payer OTHER, MEDICARE, SELFPAY ==
--- NOTE | ~2023-10-10 | MM_ITS ---
EXAMINATION: MM screening giovanni BI w ashley HISTORY: Screening mammogram TECHNIQUE: Craniocaudal and mediolateral oblique 3-D tomosynthesis images were obtained and synthetic 2-D images were generated. CAD analysis was submitted and interpreted. COMPARISON: 08/27/2022, 05/12/2021 bilateral screening mammogram examinations BREAST PARENCHYMAL COMPOSITION: There are scattered areas of fibroglandular density. FINDINGS: There is a 4 mm low-density circumscribed mass in the central left breast approximately 4.5 cm deep to the nipple. Diagnostic left mammogram and targeted left breast ultrasound examination are recommended. Otherwise no suspicious mass or architectural distortion, malignant calcification, skin thickening or retraction or significant new or developing density of either breast is noted. IMPRESSION: 1. 4 mm central left breast mass 2. Diagnostic left mammogram and targeted left breast ultrasound examination are recommended. BI-RADS Category 0: Incomplete: Needs additional imaging evaluation. Reviewed, dictated and finalized at location A. [employer] FLOOR TECH IMPRESSION: 1. 4 mm central left breast mass 2. Diagnostic left mammogram and targeted left breast ultrasound examination ar lara recommended. BI-RADS Category 0: Incomplete: Needs additional imaging evaluation.
== END 2023-10-10 09:29 | disposition home or self-care (01) ==
LOC: ANHIMG 09:30
PROVIDERS: PCP Family Medicine; Visit Provider Family Medicine
DX: Z12.31 Encounter for screening mammogram for malignant neoplasm of breast (principal); R92.8 Other abnormal and inconclusive findings on diagnostic imaging of breast
CPT/HCPCS: 77063; 77067

== ENCOUNTER 2023-11-03 09:05 | Outpatient (CLI) | payer OTHER, MEDICARE, SELFPAY ==
--- NOTE | ~2023-11-03 | CT_ITS ---
EXAMINATION: CT sinus wo con DATE: 11/03/2023 09:24 INDICATION: Chronic sinusitis TECHNIQUE: Computed tomography (CT) of the paranasal sinuses was performed without intravenous contra st. The dose-length product was 269.96 mGy-cm. Automated exposure control and iterative reconstructio n technique were employed. COMPARISON: CT dated 11/01/2020 FINDINGS: There is pneumatization of the paranasal sinuses without significant mucosal thickening. No abnormal fluid. No mucoperiosteal reaction. Leftward nasal septal deviation. Ostiomeatal units are p atent. Mastoids are pneumatized. IMPRESSION: 1. No significant sinus disease. Reviewed, dictated and finalized at location L.
== END 2023-11-03 09:06 | disposition home or self-care (01) ==
LOC: ANHIMG 09:07
PROVIDERS: PCP Family Medicine; Visit Provider Otolaryngology
DX: J32.9 Chronic sinusitis, unspecified (principal)
CPT/HCPCS: 70486

== ENCOUNTER 2023-11-07 00:49 | Day surgery (SDC) | payer OTHER, MEDICARE, SELFPAY ==
[2023-07-13 13:19] VITALS: BMI 28.4
--- NOTE | 2023-07-29 13:26 | PC.NURSE ---
Patient states there have been no changes in her health history besides having to cancel her original appointment due to COVID. Updated arrival times given. Also instructed it was okay to take her Suprep that she bought when she was scheduled with [facility] instead of [facility] OTC prep. Patient verbalizes understanding. No questions at this time.
--- NOTE | 2023-08-23 09:32 | SUR.PREOP ---
Addendum entered by HARPREET NeelyA 08/23/23 09:33: Pt stated she is on antibiotics for upper respiratory infection and wants that to be cleared up before proceeding. Patient will call the GI office when she is ready to reschedule. Original Note: Patient called regarding upcoming procedure. Reviewed preop instructions, appointment times, and procedure prep.
[2023-10-28 10:57] VITALS: BMI 28.4
--- NOTE | 2023-11-04 10:12 | SUR.PREOP ---
Patient called regarding upcoming procedure. Reviewed preop instructions, appointment times, and procedure prep.
[2023-11-07 12:48] VITALS: BP 131/61; PULSE 75; RESP 16; TEMP 36.1; O2SAT 98
[2023-11-07] MEDS: SODIUM CHLORIDE 0.9% IV 500 ML 10 ML IV CONT (13:00)
--- NOTE | 2023-11-07 13:14 | WPDANESEPPF ---
Anes - Initial Pre Proc Eval Procedure: Operation Date: 11/07/23 13:30 Proposed Procedures p Screening Colonoscopy - Elliott Candelaria MD Date/Time: 11/07/23 13:14 Surgeon: Elliott Candelaria MD Pre Op Diagnosis: neoplasm screening Patient Data Age: 73 Gender: F Height: 1.57 m Weight: 67.5 kg Last Vital Signs Temp 97 F L 11/07/23 12:48 Pulse 75 11/07/23 12:48 Resp 16 11/07/23 12:48 BP 131/61 11/07/23 12:48 Pulse Ox 98 11/07/23 12:48 O2 Del Method Room Air 11/07/23 12:48 Allergies Allergy/AdvReac Type Severity Reaction Status Date / Time carbamazepine Allergy Severe Anaphylaxis Verified 11/07/23 12:45 cefuroxime Allergy Severe Anaphylaxis Verified 11/07/23 12:45 hydromorphone Allergy Severe Anaphylaxis, Verified 11/07/23 12:45 ARM SWELLING lamotrigine Allergy Severe Hives / Verified 11/07/23 12:45 Red Face paroxetine Allergy Severe Anaphylaxis Verified 11/07/23 12:45 Penicillins Allergy Severe Anaphylaxis Verified 11/07/23 12:45 Sulfa (Sulfonamide Allergy Severe Rash Verified 11/07/23 12:45 Antibiotics) levofloxacin Allergy Mild swelling Verified 11/07/23 12:45 and black discoloration at IV site trimethoprim Allergy Unknown Rash Verified 11/07/23 12:45 Iodinated Contrast Media Allergy Anaphylaxis Verified 11/07/23 12:45 mirtazapine AdvReac Severe Nausea And Verified 11/07/23 12:45 Vomiting adhesive AdvReac Intermediate Rash Verified 11/07/23 12:45 azithromycin AdvReac Intermediate Palpitation Verified 11/07/23 12:45 s prednisone AdvReac Unknown HEART BEAT Verified 11/07/23 12:45 RACING NSAIDS (Non-Steroidal AdvReac AVOIDS- Verified 11/07/23 12:45 Anti-Inflamma SEVERE KIDNEY DISEASE EGGPLANT Allergy Unknown HIVES Uncoded 11/07/23 12:45 Home Medications Medication Instructions Recorded Confirmed Type metoprolol succinate 25 mg 25 mg PO BID 01/09/21 11/07/23 History tablet,extended release 24 hr alprazolam 0.5 mg tablet 0.5 mg PO QID PRN Anxiety 08/19/21 09/22/23 History aspirin 325 mg tablet,delayed 325 mg PO DAILY 08/19/21 09/22/23 History release hydrocodone 10 mg-acetaminophen 1 tablet PO Q6-8H PRN Pain 08/19/21 09/22/23 History 325 mg tablet lidocaine 5 % topical gel See Rx Instructions .Route 05/16/23 09/22/23 Rx .COMPLEX #30 grams losartan 25 mg tablet 25 mg PO DAILY #30 tabs 06/07/23 09/22/23 Rx dapagliflozin propanediol 5 mg 5 mg PO QAM #90 tabs 06/20/23 09/22/23 Rx tablet (Farxiga) sodium,potassium,mag sulfates 17.5 See Rx Instructions PO .COMPLEX 07/13/23 09/22/23 Rx gram-3.13 gram-1.6 gram oral soln #354 mL (Suprep Bowel Prep Kit) cyclobenzaprine 5 mg tablet 5 mg PO TID PRN muscle spasm #180 09/15/23 10/28/23 Rx tabs ciprofloxacin 0.3 %-dexamethasone 4 drp otic (ear) Q12H PRN 10/28/23 10/28/23 History 0.1 % ear drops,suspension PSORIASIS IN EAR clotrimazole-betamethasone 1 1 applic topical BID PRN Skin 10/28/23 10/28/23 History %-0.05 % topical cream Irritation sumatriptan succinate 50 mg tablet See Rx Instructions PO .COMPLEX 10/28/23 07/13/23 History (Imitrex) PRN Migraine Headache Patient hx anesthesia problems: none Family hx anesthesia problems: none Results Review: All pre-operative results and documents have been reviewed as part of the pre-operative evaluation. [facility] Past Medical History Medical History Anxiety Aortic stenosis mild Cataract Chronic cholecystitis without calculus (~09/2022) CKD (chronic kidney disease) stage 3, GFR 30-59 ml/min Diverticulitis (~12/2019) Dysfunctional gallbladder Gwen Rivera infection Essential (primary) hypertension History of COVID-19 (~10/2020) 10/2020 Lumbar spondylosis with myelopathy Migraine without aura Post-COVID chronic cough Psoriatic arthritis PTSD (post-traumatic stress disorder) Recurrent genital herpes Surgical Hist
[2023-11-07] MEDS: ONDANSETRON INJ 4 MG/2 ML VIAL IV PUSH (13:17)
--- NOTE | 2023-11-07 13:51 | SUR.PREOP ---
Patient complaining of nausea. Dr. Farley ordered 4mg of Zofran.
--- NOTE | 2023-11-07 14:09 | PM.HPGS ---
History of Present Illness History of Present Illness Consent: Risks, benefits, and alternatives have been discussed and questions answered. Patient agrees to proceed with procedure. Chief complaint: neoplasm screening Narrative: Kemi Espinosa is a 73 year old female here for screening colonoscopy Review of Systems Review of Systems: All systems reviewed & are unremarkable except as noted in HPI and below PMFSH Past Medical History Medical History (Updated 11/07/23 @ 14:10 by Elliott Candelaria MD) Anxiety Aortic stenosis mild Cataract Chronic cholecystitis without calculus (~09/2022) CKD (chronic kidney disease) stage 3, GFR 30-59 ml/min Colon cancer screening Diverticulitis (~12/2019) Dysfunctional gallbladder Gwen Rivera infection Essential (primary) hypertension History of COVID-19 (~10/2020) 10/2020 Lumbar spondylosis with myelopathy Migraine without aura Post-COVID chronic cough Psoriatic arthritis PTSD (post-traumatic stress disorder) Recurrent genital herpes Surgical History Surgical History History of hysterectomy (~1987) History of medial meniscus repair of left knee (~08/2021) 01/26 and 08/29 Hx of tonsillectomy (~1952) S/P laparoscopic cholecystectomy (~11/2022) 11/19/22 Family History Family History Father Family history of lung cancer Patient's father is Mother Family history of lung cancer Patient's mother is Hypertension Depression Thyroid disease Sibling Family history of malignant neoplasm Asthma Other Bladder cancer Brain cancer Breast cancer Family history of alcoholism Family history of arthritis Family history of seizure disorder Social History Social History Social History: Caffeine-coffee daily Smoking status: Never smoker Second hand tobacco smoke exposure: Yes Alcohol intake: never Substance use: never Substance use type: does not use Lack of Transportation: No Lack of Food: Never True Current Housing: I Have Housing Concerned About Future Housing: No Difficulty Paying Gas/Electric Bills: No Difficulty Paying for Meds: No Currently Unemployed: No Education: Trade/Vocational Certificate Difficulty w/ Childcare or Family Care: No Living arrangements: with family Additional living arrangements comments: ADULT CHILD Occupation/Education: occupation Gender identity (if verbalized by the patient): Female Spiritual care concerns: No Meds Home Medications and Allergies Home Medications Medication Instructions Recorded Confirmed Type metoprolol succinate 25 mg 25 mg PO BID 01/09/21 11/07/23 History tablet,extended release 24 hr alprazolam 0.5 mg tablet 0.5 mg PO QID PRN Anxiety 08/19/21 09/22/23 History aspirin 325 mg tablet,delayed 325 mg PO DAILY 08/19/21 09/22/23 History release hydrocodone 10 mg-acetaminophen 1 tablet PO Q6-8H PRN Pain 08/19/21 09/22/23 History 325 mg tablet lidocaine 5 % topical gel See Rx Instructions .Route 05/16/23 09/22/23 Rx .COMPLEX #30 grams losartan 25 mg tablet 25 mg PO DAILY #30 tabs 06/07/23 09/22/23 Rx dapagliflozin propanediol 5 mg 5 mg PO QAM #90 tabs 06/20/23 09/22/23 Rx tablet (Farxiga) sodium,potassium,mag sulfates 17.5 See Rx Instructions PO .COMPLEX 07/13/23 09/22/23 Rx gram-3.13 gram-1.6 gram oral soln #354 mL (Suprep Bowel Prep Kit) cyclobenzaprine 5 mg tablet 5 mg PO TID PRN muscle spasm #180 09/15/23 10/28/23 Rx tabs ciprofloxacin 0.3 %-dexamethasone 4 drp otic (ear) Q12H PRN 10/28/23 10/28/23 History 0.1 % ear drops,suspension PSORIASIS IN EAR clotrimazole-betamethasone 1 1 applic topical BID PRN Skin 10/28/23 10/28/23 History %-0.05 % topical cream Irritation sumatriptan succinate 50 mg tablet See Rx Instruc
[2023-11-07 14:26] VITALS: BP 101/56; PULSE 68; RESP 20; O2SAT 97
[2023-11-07 14:36] VITALS: BP 115/67; PULSE 63; RESP 21; O2SAT 99
[2023-11-07 14:46] VITALS: BP 126/80; PULSE 61; RESP 20; O2SAT 100
== END 2023-11-07 14:51 | disposition home or self-care (01) ==
PROVIDERS: PCP Family Medicine; Visit Provider Internal Medicine Gastroenterology
PROC: 0DJD8ZZ Inspection of Lower Intestinal Tract, Via Natural or Artificial Opening Endoscopic (ICD-10-PCS; CPT 45378; principal; 2023-11-07 13:30)
DX: Z12.11 Encounter for screening for malignant neoplasm of colon (principal); D12.2 Benign neoplasm of ascending colon; K57.30 Diverticulosis of large intestine without perforation or abscess without bleeding; I12.9 Hypertensive chronic kidney disease with stage 1 through stage 4 chronic kidney disease, or unspecified chronic kidney disease; N18.30 Chronic kidney disease, stage 3 unspecified; F41.9 Anxiety disorder, unspecified; F43.10 Post-traumatic stress disorder, unspecified; Z79.82 Long term (current) use of aspirin; Z79.891 Long term (current) use of opiate analgesic; Z98.890 Other specified postprocedural states; Z90.49 Acquired absence of other specified parts of digestive tract; Z86.79 Personal history of other diseases of the circulatory system; Z80.1 Family history of malignant neoplasm of trachea, bronchus and lung; Z80.52 Family history of malignant neoplasm of bladder; Z80.8 Family history of malignant neoplasm of other organs or systems; Z80.3 Family history of malignant neoplasm of breast
CPT/HCPCS: 45385; 88305; J2405; J2704; J7040

== ENCOUNTER 2023-11-15 11:48 | Outpatient (CLI) | payer OTHER, MEDICARE, SELFPAY ==
--- NOTE | ~2023-11-15 | MMUS_ITS ---
EXAMINATION: MM diagnostic giovanni LT w ashley, US breast LT limited HISTORY: 4 mm central left breast mass reported on October 10, 2023 screening mammogram 9 TECHNIQUE: Additional 3-D tomosynthesis images of the left breast were performed and synthetic 2-D im ages were generated. CAD analysis was submitted and interpreted. High resolution targeted left breast ultrasound was performed. COMPARISON: 10/10/2023 bilateral screening mammogram FINDINGS: MAMMOGRAPHIC FINDINGS: There is an approximately 3.7 x 2.7 mm circumscribed low-density opacity in the central left breast a pproximately 4.5 cm deep to the nipple. ULTRASOUND: Left breast 11:00 1 cm from nipple: 2.2 x 2.7 x 3 mm sonolucency is noted without internal vascularit y or posterior shadowing, probably benign Left breast 2:00 2 cm from nipple: 3.2 x 1.9 x 2.6 mm circumscribed hypoechoic lesion without interna l vascularity posterior shadowing, probably benign IMPRESSION: 1. Probably benign findings 2. Six-month diagnostic left mammogram and left breast ultrasound follow-up are recommended BI-RADS category 3, probably benign findings. Reviewed, dictated and finalized at location A. IMPRESSION: 1. Probably benign findings 2. Six-month diagnostic left mammogram and left breast ultrasound follow-up are recommended BI-RADS category 3, probably benign findings.
== END 2023-11-15 11:49 | disposition home or self-care (01) ==
PROVIDERS: PCP Family Medicine; Visit Provider Family Medicine
DX: N63.20 Unspecified lump in the left breast, unspecified quadrant (principal); R92.8 Other abnormal and inconclusive findings on diagnostic imaging of breast
CPT/HCPCS: 76642; 77061; 77065; G0279

== ENCOUNTER 2023-11-24 10:01 | Outpatient (CLI) | payer OTHER, MEDICARE, SELFPAY ==
[2023-11-24 10:43] LABS: Creatinine Urine 10.9 mg/dL; Total Protein Urine Random 14 mg/dL; Ur Ttl Prot Creatinine Ratio 1.28 mg/mg (0-0.20)
[2023-11-24 10:54] LABS: Hematocrit 47.9 % (37.0-47.0); Hemoglobin 15.6 g/dL (12.0-15.0); Mean Corpuscular HGB Conc 32.6 g/dl (32-36); Mean Corpuscular Hemoglobin 29.1 pg (26-34); Mean Corpuscular Volume 89.4 fl (80-100); Mean Platelet Volume 11.9 fl (7.4-10.4); Platelet Count Result 261 k/mm3 (150-375); Red Blood Count 5.36 M/mm3 (4.2-5.4); Red Cell Distribution Width 13.2 % (11.5-14.5); White Blood Count 7.7 K/mm3 (4.5-10.0)
[2023-11-24 11:12] LABS: Albumin Level 4.6 g/dL (3.5-5.1); Anion Gap 7 mmol/L (4-12); Blood Urea Nitrogen 20 mg/dL (7-17); Carbon Dioxide 26 mmol/L (22-30); Chloride 105 mmol/L (98-107); Estimated Glomerular Filt Rate 34; Glucose 114 mg/dL (65-110); Phosphorus 3.5 mg/dL (2.5-4.5); Potassium 3.9 mmol/L (3.4-5.0); Sodium 138 mmol/L (137-145)
== END 2023-11-24 10:02 | disposition home or self-care (01) ==
PROVIDERS: PCP Family Medicine; Visit Provider Internal Medicine Nephrology
DX: N18.32 Chronic kidney disease, stage 3b (principal)
CPT/HCPCS: 36415; 80069; 82570; 83970; 84156; 85027

== ENCOUNTER 2023-11-26 12:37 | Outpatient (CLI) | payer OTHER, MEDICARE, SELFPAY ==
[2023-11-26 14:19] LABS: Total Volume 24 Hour Urine 3300 ml
== END 2023-11-26 12:38 | disposition home or self-care (01) ==
LOC: ANHLAB 12:41
PROVIDERS: PCP Family Medicine; Visit Provider Internal Medicine Nephrology
DX: N18.32 Chronic kidney disease, stage 3b (principal)
CPT/HCPCS: 81050; 84540

== ENCOUNTER 2023-12-29 11:32 | Outpatient (RCR) | payer OTHER, MEDICARE, SELFPAY ==
[2023-12-29 12:49] LABS: Basophils Percent Auto 0.4 % (0.2-1.2); Eosinophils Absolute Auto 0.1 K/mm3 (0-0.3); Eosinophils Percent Auto 0.8 % (0-4.4); Hematocrit 44.4 % (37.0-47.0); Hemoglobin 14.5 g/dL (12.0-15.0); Immature Granulocyte Absolute 0.04 K/mm3 (0.00-0.031); Immature Granulocyte Percent A 0.4 % (0-0.5); Lymphocytes Absolute Auto 3.62 K/mm3 (0.9-3.2); Lymphocytes Percent Auto 34.4 % (18.3-44.2); Mean Corpuscular HGB Conc 32.7 g/dl (32-36); Mean Corpuscular Hemoglobin 29.1 pg (26-34); Mean Corpuscular Volume 89.2 fl (80-100); Mean Platelet Volume 11.7 fl (7.4-10.4); Monocytes Absolute Auto 0.8 K/mm3 (0.1-0.6); Monocytes Percent Auto 7.3 % (2.6-8.5); Neutrophils Percent Auto 56.7 % (45.5-73.1); Platelet Count Result 256 k/mm3 (150-375); Red Blood Count 4.98 M/mm3 (4.2-5.4); Red Cell Distribution Width 13.1 % (11.5-14.5); White Blood Count 10.5 K/mm3 (4.5-10.0)
[2023-12-29 13:06] LABS: Alanine Aminotransferase 29 U/L (6-35); Albumin Level 4.6 g/dL (3.5-5.1); Alkaline Phosphatase 90 U/L (38-126); Anion Gap 11 mmol/L (4-12); Aspartate Amino Transferase 30 U/L (14-36); Bilirubin,Total 0.5 mg/dL (0.2-1.3); Blood Urea Nitrogen 35 mg/dL (7-17); Calcium 9.7 mg/dL (8.4-10.2); Carbon Dioxide 21 mmol/L (22-30); Chloride 108 mmol/L (98-107); Estimated Glomerular Filt Rate 24; Glucose 103 mg/dL (65-110); Potassium 4.1 mmol/L (3.4-5.0); Sodium 140 mmol/L (137-145)
== END 2024-03-28 23:59 | disposition home or self-care (01) ==
LOC: ANHLAB 11:32
PROVIDERS: PCP Family Medicine; Visit Provider Internal Medicine Rheumatology
DX: Z51.81 Encounter for therapeutic drug level monitoring (principal); Z79.01 Long term (current) use of anticoagulants
CPT/HCPCS: 36415; 80048; 80076; 85025

== ENCOUNTER 2024-02-02 10:13 | Outpatient (CLI) | payer OTHER, MEDICARE, SELFPAY ==
--- NOTE | ~2024-02-02 | US_ITS ---
Right Sternoclavicular area ULTRASOUND Ordering provider: Milly Naylor, HEAD ATHLETIC TRAINER-C History: . R22.1 - Localized swelling, mass and lump, neck . Comparison: None. FINDINGS/impression: Hypoechoic area is seen measuring 0.7 x 0.6 by 0.5 cm. Dilated fluid is seen in the area. This may represent a lymph node. Collection is less likely. Follow-up advised. Reviewed, dictated and finalized at location A.
== END 2024-02-02 10:14 ==
LOC: GOSHIMG 10:14
PROVIDERS: PCP Family Medicine; Visit Provider Nurse Practitioner
DX: R22.1 Localized swelling, mass and lump, neck (principal)
CPT/HCPCS: 76604

== ENCOUNTER 2024-02-02 10:27 | Outpatient (CLI) | payer OTHER, MEDICARE, SELFPAY ==
[2024-02-02 19:03] LABS: Hemoglobin 14.2 g/dL (12.0-15.0); Mean Corpuscular HGB Conc 32.3 g/dl (32-36); Mean Corpuscular Hemoglobin 29.2 pg (26-34); Mean Corpuscular Volume 90.3 fl (80-100); Mean Platelet Volume 11.9 fl (7.4-10.4); Platelet Count Result 250 k/mm3 (150-375); Red Blood Count 4.87 M/mm3 (4.2-5.4); Red Cell Distribution Width 13.5 % (11.5-14.5); White Blood Count 7.9 K/mm3 (4.5-10.0)
[2024-02-02 19:18] LABS: Alanine Aminotransferase 27 U/L (6-35); Albumin Level 4.4 g/dL (3.5-5.1); Alkaline Phosphatase 85 U/L (38-126); Anion Gap 7 mmol/L (4-12); Aspartate Amino Transferase 34 U/L (14-36); Bilirubin,Total 0.5 mg/dL (0.2-1.3); Blood Urea Nitrogen 21 mg/dL (7-17); Calcium 9.5 mg/dL (8.4-10.2); Carbon Dioxide 26 mmol/L (22-30); Chloride 108 mmol/L (98-107); Cholesterol 210 mg/dL (0-200); Estimated Glomerular Filt Rate 31; Glucose 91 mg/dL (65-110); HDL Direct 41 mg/dL; Potassium 4.6 mmol/L (3.4-5.0); Sodium 141 mmol/L (137-145); Triglycerides 206 mg/dL (<150)
[2024-02-02 19:29] LABS: LDL Cholesterol Direct 115 mg/dL
[2024-02-02 19:46] LABS: Vitamin D 25 Hydroxy 32.9 ng/mL
[2024-02-02 20:12] LABS: Creatinine Urine 23.9 mg/dL
[2024-02-02 20:24] LABS: Microalbumin Urine Random < 6.0 mg/L (0-16.7)
[2024-02-02 22:32] LABS: Hemoglobin A1C 6.2 % (<5.7)
== END 2024-02-02 10:28 | disposition home or self-care (01) ==
PROVIDERS: PCP Family Medicine; Visit Provider Nurse Practitioner
DX: E78.5 Hyperlipidemia, unspecified (principal); E55.9 Vitamin D deficiency, unspecified; E11.9 Type 2 diabetes mellitus without complications; N18.30 Chronic kidney disease, stage 3 unspecified; R22.1 Localized swelling, mass and lump, neck; N63.20 Unspecified lump in the left breast, unspecified quadrant; Z78.0 Asymptomatic menopausal state
CPT/HCPCS: 36415; 80053; 80061; 82043; 82306; 83036; 85027

== ENCOUNTER 2024-02-06 14:26 | Outpatient (CLI) | payer OTHER, MEDICARE, SELFPAY ==
--- NOTE | ~2024-02-06 | XR_ITS ---
EXAM: XR hand RT min 3V DATE: 02/06/2024 14:48 HISTORY: S63.501A -hyperflex wrist when caught in door handle 12/27/23 . COMPARISON: 03/29/2022. FINDINGS: Decreased mineralization. No fracture or dislocation. No lytic or blastic lesion. Mild horacio yarticular osteoarthritis. No erosion or periosteal change. Soft tissues within normal limits. IMPRESSION: No acute osseous finding in the right hand. Reviewed, dictated and finalized at location K.
== END 2024-02-06 14:27 | disposition home or self-care (01) ==
LOC: ANHIMG 14:32
PROVIDERS: PCP Family Medicine; Visit Provider Plastic Surgery
DX: G56.01 Carpal tunnel syndrome, right upper limb (principal)
CPT/HCPCS: 73130

== ENCOUNTER 2024-02-14 08:39 | Outpatient (CLI) | payer OTHER, MEDICARE, SELFPAY ==
--- NOTE | ~2024-02-14 | MR_ITS ---
EXAMINATION: MR wrist RT wo con DATE: 02/14/2024 10:47 INDICATION: Right wrist pain with tear of the triangular fibrocartilage complex and carpal tunnel ner ve compression TECHNIQUE: Magnetic resonance imaging (MRI) of the right wrist was performed without intravenous cont rast. Sequences performed include axial PD-weighted FSE and PD-weighted FS FSE, coronal PD-weighted F S FSE and T1-weighted SE, and sagittal PD-weighted FS FSE and PD-weighted FSE. COMPARISON: None FINDINGS: Intrinsic ligaments: The scapholunate and lunotriquetral ligaments are normal. Triangular fibrocartilage complex (TFCC): Tear involving the radial two thirds of the central fibrocartilaginous disc of the triangular fibroca rtilage complex as well as of the dorsal radioulnar ligament. The volar radioulnar ligament, the fove al and ulnar styloid attachments appear to remain intact. The ulnar collateral ligament and ulnotriqu etral ligament normal. There is thickening of the extensor carpi ulnaris (ECU) tendon sheath at the l evel of the ECU groove. Extensor wrist: There is mild tendinopathy and longitudinal split tear of the extensor carpi ulnaris tendon beginning distal to the ECU groove at the level of the triquetrum. Extensor tendons of the wrist are otherwise normal. No tenosynovitis. Flexor wrist: The flexor tendons of the wrist are normal with no associated tenosynovitis. There is diffuse thicken ing of the median nerve proximal to the carpal tunnel with the nerve appears compressed with decrease cross-sectional area and peripheral margin conforming to the contours of the adjacent flexor tendons . The cross-sectional area of the nerve at the epicondyle measures approximately 8-10 sq mm with thic kening of the more proximal nerve measuring 22-25 sq mm and with mild associated increased signal at the level of the proximal carpal row tapering to 16 sq mm at the level of the distal radioulnar joint . There is only minimal 1 mm palmar bowing of the mildly thickened flexor retinaculum. No abnormal m asses or fluid collections within the carpal tunnel there appears be mild increased signal associated with tissue likely mild tenosynovitis along the floor of the carpal tunnel. Guyon's canal: Guyon's canal including the ulnar nerve and artery are normal. Bones/other: Normal marrow signal. No fracture, erosions, avascular necrosis or abnormal marrow replacing process. Mild polyarticular osteoarthritis at the distal radioulnar, radioscaphoid, triscaphe, first carpal m etacarpal and first metacarpophalangeal joints. IMPRESSION: 1. Tear of the central fibrocartilaginous disc and dorsal radioulnar ligament components of the trian gular fibrocartilage complex 2. Thickening of the extensor carpi ulnaris sheath at the level of the ECU groove with mild tendinopa thy and partial split tear of the more distal tendon. 3. Thickening and mild increased signal in the median nerve medially proximal to the carpal tunnel wi th the nerve appears compressed with decrease cross-sectional area and contour conforming to the kory ins of the adjacent flexor tendons which be consistent with provided history of carpal tunnel syndrom e. 4. Mild polyarticular osteoarthritis at the right wrist and carpus.. Reviewed, dictated and finalized at location A. IMPRESSION: 1. Tear of the central fibrocartilaginous disc and dorsal radioulnar ligament c omponents of the triangular fibrocartilage complex 2. Thickening of the extensor carpi ulnaris sheath at the level of the ECU groo ve with mild tendinopathy and partial split tear of the more distal tendon. 3. Thickening and mild increased signal in the median nerve medially proximal t o the carpal tunnel with the nerve appears compressed with decrease cross-secti onal area and contour conforming to th
== END 2024-02-14 08:40 | disposition home or self-care (01) ==
PROVIDERS: PCP Family Medicine; Visit Provider Plastic Surgery
DX: S63.591A Other specified sprain of right wrist, initial encounter (principal); G56.01 Carpal tunnel syndrome, right upper limb; M19.031 Primary osteoarthritis, right wrist; M77.8 Other enthesopathies, not elsewhere classified; X58.XXXA Exposure to other specified factors, initial encounter
CPT/HCPCS: 73221

== ENCOUNTER 2024-03-21 09:48 | Outpatient (CLI) | payer OTHER, MEDICARE, SELFPAY ==
--- NOTE | 2024-03-21 11:15 | NEURO_ITS ---
Impression: # Complains of pain in right upper extremity. History of trauma with right arm hanging over the door while wind pushing the door and could not get the arm free. # Traumatic Plexopathy with underlying right Carpal Tunnel Syndrome and ulnar neuropathy across the elbow. # Abnormal Needle/EMG exam. Nerve Conduction Studies Anti Sensory Summary Table Stim Site NR Peak (ms) P-T Amp (?V) Site1 Site2 Delta-P (ms) Dist (cm) Alexey (m/s) Right Median Anti Sensory (2-3nd Digit) Wrist 4.1 31.5 Wrist 2-3nd Digit 4.1 14.0 34 Wrist 4.1 15.9 Wrist 2-3nd Digit 4.1 14.0 34 Right Radial Anti Sensory (Base 1st Digit) Wrist 2.7 47.8 Wrist Base 1st Digit 2.7 0.0 Right Ulnar Anti Sensory (5th Digit) Wrist 2.6 49.9 Wrist 5th Digit 2.6 14.0 54 Motor Summary Table Stim Site NR Onset (ms) O-P Amp (mV) Site1 Site2 Delta-0 (ms) Dist (cm) Alexey (m/s) Right Median Motor (Abd Poll Brev) Wrist 4.7 2.7 Elbow Wrist 4.8 27.0 56 Elbow 9.5 3.1 Right Ulnar Motor (Abd Dig Minimi) Wrist 3.0 5.6 A Elbow Wrist 5.8 29.0 50 A Elbow 8.8 4.6 B Elbow Wrist 3.5 19.0 54 B Elbow 6.5 4.5 F Wave Studies NR F-Lat (ms) L-R F-Lat (ms) Right Median (Mrkrs) (Abd Poll Brev) 27.72 Right Ulnar (Mrkrs) (Abd Dig Min) 27.56 EMG Side Muscle Nerve Root Ins Act Fibs Amp Dur Recrt Comment Right 1stDorInt Ulnar C8-T1 Nml Nml Nml >12ms +2 Right Ext Indicis Radial (Post Int) C7-8 Nml Nml Nml >12ms +2 Right Ext Digitorum Radial (Post Int) C7-8 Nml Nml Nml >12ms +2 Right BrachioRad Radial C5-6 Nml Nml Nml >12ms +2 Right PronatorTeres Median C6-7 Nml Nml Nml >12ms +2 Right Abd Poll Brev Median C8-T1 Nml Nml Nml >12ms +2 Right ABD Dig Min Ulnar C8-T1 Nml Nml Nml >12ms +2 Right Biceps Musculocut C5-6 Nml Nml Nml >12ms +2 Right Triceps Radial C6-7-8 Nml Nml Nml >12ms +2 Right Deltoid Axillary C5-6 Nml Nml Nml >12ms +2 MTDD
== END 2024-03-21 09:49 | disposition home or self-care (01) ==
LOC: ANHNEURO 09:48
PROVIDERS: PCP Family Medicine; Visit Provider Plastic Surgery
DX: G56.01 Carpal tunnel syndrome, right upper limb (principal); S63.501A Unspecified sprain of right wrist, initial encounter; X58.XXXA Exposure to other specified factors, initial encounter; R94.131 Abnormal electromyogram [EMG]
CPT/HCPCS: 95886; 95909

== ENCOUNTER 2024-05-10 16:09 | Outpatient (CLI) | payer OTHER, MEDICARE, SELFPAY ==
[2024-05-10 16:57] LABS: Strep Group A RT-PCR NOT DETECTED (Negative)
[2024-05-10 17:07] LABS: Influenza A QL RT-PCR Negative (Negative); Influenza B QL RT-PCR Negative (Negative); RSV RNA, RT-PCR Negative (Negative); SARS-CoV-2 RNA PCR Negative (Negative)
== END 2024-05-10 16:10 | disposition home or self-care (01) ==
LOC: ANHLAB 16:11
PROVIDERS: PCP Family Medicine; Visit Provider Family Medicine
DX: J02.9 Acute pharyngitis, unspecified (principal); Z20.822 Contact with and (suspected) exposure to COVID-19
CPT/HCPCS: 87637; 87651

== ENCOUNTER 2024-05-23 14:10 | Outpatient (CLI) | payer OTHER, MEDICARE, SELFPAY ==
[2024-05-23 14:48] LABS: Hematocrit 39.6 % (37.0-47.0); Hemoglobin 13.3 g/dL (12.0-15.0); Mean Corpuscular HGB Conc 33.6 g/dl (32-36); Mean Corpuscular Volume 89.2 fl (80-100); Mean Platelet Volume 11.3 fl (7.4-10.4); Platelet Count Result 232 k/mm3 (150-375); Red Blood Count 4.44 M/mm3 (4.2-5.4); Red Cell Distribution Width 12.8 % (11.5-14.5)
[2024-05-23 15:02] LABS: Albumin Level 3.9 g/dL (3.5-5.1); Anion Gap 10 mmol/L (4-12); Blood Urea Nitrogen 25 mg/dL (7-17); Calcium 9.1 mg/dL (8.4-10.2); Carbon Dioxide 23 mmol/L (22-30); Chloride 102 mmol/L (98-107); Estimated Glomerular Filt Rate 44; Glucose 348 mg/dL (65-110); Phosphorus 2.8 mg/dL (2.5-4.5); Potassium 4.3 mmol/L (3.4-5.0); Sodium 135 mmol/L (137-145)
[2024-05-23 15:07] LABS: Creatinine Urine 21.6 mg/dL; Total Protein Urine Random 12 mg/dL; Ur Ttl Prot Creatinine Ratio 0.56 mg/mg (0-0.20)
[2024-05-23 15:17] LABS: Parathyroid Intact 42.7 pg/mL (14.5-75.2)
== END 2024-05-23 14:11 | disposition home or self-care (01) ==
LOC: ANHLAB 14:14
PROVIDERS: PCP Family Medicine; Visit Provider Internal Medicine Nephrology
DX: N18.32 Chronic kidney disease, stage 3b (principal)
CPT/HCPCS: 36415; 80069; 82570; 83970; 84156; 85027

== ENCOUNTER 2024-07-11 10:34 | Outpatient (CLI) | payer OTHER, MEDICARE, SELFPAY ==
[2024-07-11 11:06] LABS: Hematocrit 41.1 % (37.0-47.0); Hemoglobin 13.8 g/dL (12.0-15.0); Mean Corpuscular HGB Conc 33.6 g/dl (32-36); Mean Corpuscular Hemoglobin 29.7 pg (26-34); Mean Corpuscular Volume 88.6 fl (80-100); Mean Platelet Volume 11.1 fl (7.4-10.4); Platelet Count Result 250 k/mm3 (150-375); Red Blood Count 4.64 M/mm3 (4.2-5.4); Red Cell Distribution Width 13.2 % (11.5-14.5); White Blood Count 10.8 K/mm3 (4.5-10.0)
[2024-07-11 20:50] LABS: Immunoglobulin A 102 mg/dL (70-400); Immunoglobulin G 907 mg/dL (700-1600); Immunoglobulin M 39 mg/dL (40-230)
[2024-07-11 21:04] LABS: Alanine Aminotransferase 36 U/L (6-35); Albumin Level 4.5 g/dL (3.5-5.1); Alkaline Phosphatase 77 U/L (38-126); Anion Gap 6 mmol/L (4-12); Aspartate Amino Transferase 45 U/L (14-36); Bilirubin,Total 0.5 mg/dL (0.2-1.3); Blood Urea Nitrogen 19 mg/dL (7-17); Calcium 9.6 mg/dL (8.4-10.2); Carbon Dioxide 24 mmol/L (22-30); Chloride 107 mmol/L (98-107); Estimated Glomerular Filt Rate 37; Glucose 104 mg/dL (65-110); Potassium 4.5 mmol/L (3.4-5.0); Sodium 137 mmol/L (137-145)
[2024-07-13 04:59] LABS: Protein, Total 7.1 g/dL (6.1-8.1)
[2024-07-13 11:55] LABS: Kappa\\Lambda Light Chains 1.92 (0.26-1.65)
== END 2024-07-11 10:35 | disposition home or self-care (01) ==
PROVIDERS: PCP Family Medicine; Visit Provider Internal Medicine Hematology & Oncology
DX: D80.1 Nonfamilial hypogammaglobulinemia (principal)
CPT/HCPCS: 36415; 80053; 82784; 83883; 84155; 84165; 85027

== ENCOUNTER 2024-08-23 09:48 | Outpatient (CLI) | payer OTHER, MEDICARE, SELFPAY ==
[2024-08-23 11:38] LABS: Alanine Aminotransferase 39 U/L (6-35); Albumin Level 4.5 g/dL (3.5-5.1); Alkaline Phosphatase 81 U/L (38-126); Anion Gap 9 mmol/L (4-12); Aspartate Amino Transferase 62 U/L (14-36); Bilirubin,Total 0.5 mg/dL (0.2-1.3); Blood Urea Nitrogen 19 mg/dL (7-17); Calcium 9.5 mg/dL (8.4-10.2); Carbon Dioxide 24 mmol/L (22-30); Chloride 106 mmol/L (98-107); Estimated Glomerular Filt Rate 37; Glucose 139 mg/dL (65-110); Potassium 4.8 mmol/L (3.4-5.0); Sodium 139 mmol/L (137-145)
[2024-08-23 12:05] LABS: Hemoglobin A1C 6.3 % (<5.7)
[2024-08-27 19:24] LABS: Immunoglobulin A 104 mg/dL (70-320); TTG IGA AB <1.0 U/mL
== END 2024-08-23 09:49 | disposition home or self-care (01) ==
LOC: ANHGOSHLAB 09:49
PROVIDERS: PCP Family Medicine; Visit Provider Family Medicine
DX: M25.511 Pain in right shoulder (principal); G89.29 Other chronic pain; R10.9 Unspecified abdominal pain; I10 Essential (primary) hypertension; E11.9 Type 2 diabetes mellitus without complications
CPT/HCPCS: 36415; 80053; 82784; 83036; 86364

== ENCOUNTER 2024-08-23 10:02 | Outpatient (CLI) | payer OTHER, MEDICARE, SELFPAY ==
--- NOTE | ~2024-08-23 | XR_ITS ---
XR clavicle RT Ordering provider: Karen Vela MD History: . M25.511 - Pain in right shoulder . Comparison: None. FINDINGS: BONES: No acute fracture or dislocation. JOINT SPACES: Normal. No acromioclavicular separation. SOFT TISSUES: Normal. IMPRESSION: No acute osseous abnormality of the right clavicle. Reviewed, dictated and finalized at location A. R ORAL SURGEON
== END 2024-08-23 10:03 | disposition home or self-care (01) ==
LOC: GOSHIMG 10:03
PROVIDERS: PCP Family Medicine; Visit Provider Family Medicine
DX: M25.511 Pain in right shoulder (principal)
CPT/HCPCS: 73000

== ENCOUNTER 2024-08-28 12:56 | Outpatient (CLI) | payer OTHER, MEDICARE, SELFPAY ==
--- NOTE | ~2024-08-28 | CT_ITS ---
Non-contrast CT scan of the Abdomen and Pelvis Clinical indication: Abdominal pain Technique: 2.5 mm axial scans were obtained through the abdomen and pelvis without intravenous or or al contrast. Dose reduction technique was used on this scan by utilizing automated exposure control a nd iterative reconstruction technique. The dose-length product (DLP) was 699.66 mGy-cm. Findings: Images through the lung bases reveal no abnormalities. There is no evidence of renal or ureteral calculi. The kidneys and the ureters are nondilated. The liver, spleen, pancreas, and adrenals appear normal. Cholecystectomy clips are present. There is no aortic aneurysm. There is no evidence of bowel obstruction. Images through the pelvis were performed. There is no evidence of ascites or lymphadenopathy. Urinary bladder unremarkable. Status post hysterectomy. No pelvic mass. Impression: No significant abnormality seen. Postoperative changes, as above. Reviewed, dictated and finalized at [facility]. E DRILLER Impression: No significant abnormality seen. Postoperative changes, as above.
--- NOTE | ~2024-08-28 | US_ITS ---
EXAM: Focused ultrasound examination of the soft tissues of the right sternoclavicular joint HISTORY: R22.2 - Localized swelling, mass and lump, trunk TECHNIQUE: Sonographic evaluation of the soft tissues of the right sternoclavicular joint were perfor med assessing grayscale appearance and color Doppler flow. COMPARISON: 02/02/2024. FINDINGS: Redemonstration of a reniform shaped focus of decreased echogenicity measuring 5.7 x 3.8 x 6.2 mm (co mpared with 5.9 x 4.2 x 6.6 mm on the previous study). An additional reniform shaped focus of decreased echogenicity is identified at the level of the right sternoclavicular joint measuring 6.1 x 3.5 x 4.3 mm (compared with 6.2 x 4.8 x 5.[address] udy). No abnormality is present within the sonographic right supraclavicular joint space. Sonographic evaluation of the soft tissues surrounding the remainder of the right sternoclavicular serenity int demonstrate benign fibrofatty and fibromuscular elements without a cystic or solid lesion of conc taylor. IMPRESSION: Decreased in size of the morphologically benign appearing lymph nodes within the area of clinical con cern, as detailed above. Reviewed, dictated and finalized at location A. TECHNOLOGIST IMPRESSION: Decreased in size of the morphologically benign appearing lymph nodes within th e area of clinical concern, as detailed above.
== END 2024-08-28 12:57 | disposition home or self-care (01) ==
LOC: GOSHIMG 12:57
PROVIDERS: PCP Family Medicine; Visit Provider Family Medicine
DX: R22.2 Localized swelling, mass and lump, trunk (principal); G89.29 Other chronic pain
CPT/HCPCS: 74176; 76604

== ENCOUNTER 2024-09-05 15:34 | Outpatient (CLI) | payer OTHER, MEDICARE, SELFPAY ==
[2024-09-05 15:31] LABS: Hematocrit 43.1 % (37.0-47.0); Hemoglobin 14.3 g/dL (12.0-15.0); Mean Corpuscular HGB Conc 33.2 g/dl (32-36); Mean Corpuscular Hemoglobin 29.4 pg (26-34); Mean Corpuscular Volume 88.5 fl (80-100); Platelet Count Result 235 k/mm3 (150-375); Red Blood Count 4.87 M/mm3 (4.2-5.4); Red Cell Distribution Width 12.6 % (11.5-14.5); White Blood Count 9.1 K/mm3 (4.5-10.0)
--- OUTSIDE RECORDS SUMMARY | 2024-09-05 15:46 | XMS_ITS | Encounter Summary ---
Author Organization [facility] [employer] [facility] Address [address] [place] [address] Care Team Providers Care Field Operations Technician Name Role Phone Renetta Sarabia MD Primary Care Provider Reason for Visit * Reason Onset Date Comments lab orders 07/13/2022 Encounter Details Date Type Department Care Team (Late st Contact Info) Description 07/13/2022 Telephone [facility] Oncology and Hematology - [place] [address] [place] [address] [address] [place] [address] Leon Oneill MD [address] [facility] [address] [place] [address] lab orders Social History Tobacco Use Types Packs/Day Years Used Date Smoking Tobacco: Passive Smo ke Exposure - Never Smoker Cigarettes Alcohol Use Standard Drinks/Week Comments No 0 (1 standard drink = 0.6 oz pur e alcohol) Comments No Sex and Gender Information Value Date Recorded Sex Assigned at Not on file Legal Sex Female 9:01 AM CDT Gender Identity Not on file Sexual Orientation Not on file documented as of this encounter Miscellaneous Notes * Telephone Encounter - Renetta Faith RN - 07/13/2022 10:28 AM SALVAGE WINDER AND INSPECTOR No labs ordered for this patient at last visit. 1 year F/U. I pended CBC, CMP, Immunoglobulins. Please add any other orders needed. AGE WINDER AND INSPECTOR documented in this encounter Plan of Treatment Upcoming Encounters Date Type Department Care Team (Late st Contact Info) Description 07/22/2025 1:00 PM SALVAGE WINDER AND INSPECTOR Office Visit [facility] Oncology and Hematology - [place] [address] [facility] [address] [place] [address] Leon Oneill MD [address] [facility] [address] [place] [address] documented as of this encounter Visit Diagnoses Diagnosis Hypogammaglobulinemia- Primary Hypogammaglobulinaemia, unspecified documented in this encounter Care Teams Field Operations Technician Relationship Specialty Start Date End Date Renetta Sarabia MD PCP - General Family Practice 12/21/19 documented as of this encounter
--- OUTSIDE RECORDS SUMMARY | 2024-09-05 15:46 | XMS_ITS | Encounter Summary ---
Author Organization [facility] Address [address] [facility] [address] [place] [address] Care Team Providers Care Tierce Filler Name Role Phone Leon Chandler MD Primary Care Provider [phone] Leon Chandler MD Primary Care Provider [phone] Milly Celaya NP Primary Care Provider [phone] Augustin Goodson MD Unavailable [phone] Leon Oneill MD Unavailable [phone] Rick Rivas MD Unavailable Gin Toth MD Unavailable [phone] Wilian Sultana MD Unavailable [phone] No, Physician Primary Care Provider [phone] Renetta Sarabia MD Primary Care Provider [phone] Renetta Sarabia MD Unavailable [phone] Renetta Sarabia MD Primary Care Provider [phone] Sara Vela MD Primary Care Provider Prudence Gaines MD Unavailable [phone] Encounter Details Date Type Department Care Team (Late st Contact Info) Description 08/25/2016 Orders Only [facility] ProviderMitchell MD [address] [place] [address] Social History Tobacco Use Types Packs/Day Years Used Date Smoking Tobacco: Never Alcohol Use Standard Drinks/Week Comments No 0 (1 standard drink = 0.6 oz pur e alcohol) Comments Unknown Sex and Gender Information Value Date Recorded Sex Assigned at Not on file 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 us Historical Provider [facility] Final Result documented in this encounter Visit Diagnoses Not on filedocumented in this encounter Care Teams Tierce Filler Relationship Specialty Start Date End Date Leon Chandler MD PCP - General 11/05/16 03/06/18 Leon Chandler MD PCP - General 02/25/14 11/04/16 Milly Celaya NP [address] [place] [address] PCP - General Family Medicine 03/07/18 11/08/19 No, Physician PCP - General 11/09/19 12/26/19 Renetta Sarabia MD PCP - General Family Practice 12/27/19 12/27/19 Renetta Sarabia MD PCP - General Family Practice 01/03/20 09/21/21 Sara Vela MD [address] [facility] 2 [place] [address] PCP - General Family Practice 02/27/24 Augustin Goodson MD [address] [place] [address] [address] [place] [address] Referring Physician Nephrology 03/07/18 Leon Oneill MD [address] [facility] [address] [place] [address] Referring Physician Hematology 03/07/18 Rick Rivas MD [address] [facility] [address] [place] [address] Referring Physician Rheumatology 03/07/18 Gin Toth MD [address] [facility] [address] [place] [address] Consulting Physician Cardiology 03/07/18 02/26/24 Wilian Sultana MD [address] [facility] 3 [place] [address] Referring Physician Neurology 03/07/18 Renetta Sarabia MD Referring Physician Family Practice 12/27/19 Prudence Gaines MD [address] [facility] [address] [place] [address] Referring Physician Plastic Surgery 04/05/24 documented as of this encounter
--- OUTSIDE RECORDS SUMMARY | 2024-09-05 15:46 | XMS_ITS | Referral Summary ---
Author Organization [facility] [employer] Address [address] [place] [address] Care Team Providers Care Slate Roofer Name Role Phone Sara Vela MD Primary Care Provider Source Comments [facility],non-owned Affiliates and Associated Physician Practices is amultiple site organization consisting of ambulatory clinics and hospital sitesin [place], [place], [place] and [place]. This disclosure is being madepursuant to the Care Everywhere program and may not contain all information available regarding this patient. Last updated 18.[facility] [employer] Allergies Active Allergy Reactions Criticality Noted Date Comments Contrast-Iodinated Agents Fo r Ct/Other Unknown 09/27/2016 Hydromorphone Anaphylaxis High 01/21/2017 Hr dropped to 13 Lamotrigine Urticaria Medium 11/15/2016 Levofloxacin Anaphylaxis High 01/21/2017 Paroxetine Swelling 10/20/2016 Penicillins Unknown 09/27/2016 Medications * Be aware that medications may not be up to date on this document. Alwaysverify current medications with the patient. Medication Sig Dispensed Refills Start Date End Date Status aspirin (ASPIRIN) 81 MG tablet Take 81 mg by mouth Activ e metoprolol succinate XL 24hr (TOPROL XL) 25 MG tablet Reported on 01/04/2017 08/03/2016 Active ALPRAZolam (XANAX) 0.5 MG tablet Take 0.5 mg by mouth every 8 hours Active HYDROcodone-acetamino phen (NORCO) 7.5-325 MG tablet Take 1 tablet by mouth every 4 hours Active pantoprazole EC (PROTONIX) 40 MG tablet Take 40 mg by mouth Activ e ciprofloxacin (CIPRO) 500 MG tablet Take 500 mg by mouth 2 times daily Active Social History Tobacco Use Types Packs/Day Years Used Date Smoking Tobacco: Never Assessed Sex and Gender Information Value Date Recorded Sex Assigned at Not on file Gender Identity Not on file Sexual Orientation Not on file Last Filed Vital Signs Vital Sign Reading Time Taken Comments Blood Pressure 112/62 06/23/2017 4:02 PM BLOCK MASON Pulse 55 06/23/2017 4:02 PM BLOCK [place]ON Temperature 36.8 ??C (98.2 ??F) 06/23/2017 4:02 PM CS T Respiratory Rate 16 06/23/2017 4:02 PM BLOCK MASON Oxygen Saturation - - Inhaled Oxygen Concentration - - Weight 67.1 kg (148 lb) 06/23/2017 4:02 PM BLOCK MASON Height 157.5 cm (5' 2 ) 06/23/2017 4:02 PM BLOCK MASON Body Mass Index 27.07 06/23/2017 4:02 PM BLOCK MASON Plan of Treatment Not on file Care Teams Slate Roofer Relationship Specialty Start Date End Date Sara Vela MD [address] [place] [address] PCP - General 12/06/22
--- OUTSIDE RECORDS SUMMARY | 2024-09-05 15:46 | XMS_ITS | Encounter Summary ---
Author Organization [facility] Address [address] [facility] [place] [address] Phone Care Team Providers Care School Speech Language Pathologist Name Role Phone Wilian Sultana MD Unavailable [phone] Darnell Bryant MD Unavailable Milly Celaya APRN, JOURNALISM TEACHER Primary Care Provider Unavailable Encounter Details Date Type Department Care Team (Late st Contact Info) Description 11/08/2023 [facility] [address] [place] [address] Justyn Miranda, LUNCHROOM ATTENDANT #[address] [place] [address] Social History Tobacco Use Types Packs/Day Years Used Date Smoking Tobacco: Never Smokeless Tobacco: Never Alcohol Use Standard Drinks/Week Comments No 0 (1 standard drink = 0.6 oz pur e alcohol) Sexually Active [employer] Partners Comments Not Currently Male Comments No Sex and Gender Information Value Date Recorded Sex Assigned at Not on file Legal Sex Female 9:46 PM CDT Gender Identity Not on file Sexual Orientation Not on file documented as of this encounter Plan of Treatment Upcoming Encounters Date Type Department Care Team (Late st Contact Info) Description 09/19/2024 9:30 AM NET APPLICATION SUPPORT SPECIALIST [facility] [address] [place] [address] Justyn Miranda, LUNCHROOM ATTENDANT #[address] [place] [address] Discharge Disposition: Discharged to home or Selfcare documented as of this encounter Goals Goal Patient Goal Type Associated Problems Recent Progress Patient-Stated? Author I need to be able to cope better with my grief and bitterness towards my family within the next six months Behavioral Health On track(2024 9:24 AM NET APPLICATION SUPPORT SPECIALIST) Yes Justyn Miranda LCSW Note: Goal Reviewed today with: patient Readiness to change: Ready to change Department associated with goal: [facility] Steps to achieve goal: Patient to be counseled on coping with grief, during her 45 min individual therapy sessions, 2-3 times per month Patient to be counseled on aspects of healthy self-care, during her 45 min individual sessions, 2-3 times per month Behavioral Health Behavioral Health On track(2024 9:24 AM NET APPLICATION SUPPORT SPECIALIST) No Justyn Miranda LCSW Note: Goal: Patient will be able to report improved mood/coping ability for family stressors/discord, to an acceptable level within the next six months Goal Reviewed today with: patient Readiness to change: Ready to change Department associated with goal: [facility] Steps to achieve goal: Patient counseled on coping with depression, including healthy leisure interests, seeking emotional support Patient counseled on healthy communication skills/setting healthy boundaries/expectations with family members documented as of this encounter Visit Diagnoses Not on filedocumented in this encounter Additional Health Concerns Assessment Noted Time PHQ-9 Depression Total Score: 1 05/08/20 21 11:00 AM CDT documented as of this encounter Care Teams School Speech Language Pathologist Relationship Specialty Start Date End Date Milly Celaya, CARDIAC MONITOR TECHNICIAN, JOURNALISM TEACHER JamieA Salvador [place] [address] PCP - General Obstetrics & Gynecology 05/23/18 Wilian Sultana MD Consulting Physician Neurology 08/11/16 06/24/24 Darnell Bryant MD [address] [facility], [place] [id number] Psychiatry 03/16/18 documented as of this encounter
--- OUTSIDE RECORDS SUMMARY | 2024-09-05 15:46 | XMS_ITS | Encounter Summary ---
Author Organization [facility] Address [address] [facility] [place] [address] Phone Care Team Providers Care Reprographics Associate Name Role Phone Wilian Sultana MD Unavailable Darnell Bryant MD Unavailable Milly Celaya APRN, GUNNER'S MATE M Primary Care Provider Unavailable Encounter Details Date Type Department Care Team (Late st Contact Info) Description 05/22/2024 Behavioral Health [facility] [address] [place] [address] Justyn Miranda, PROGRAM COORDINATOR EXECUTIVE EDUCATION #[address] [place] [address] Social History Tobacco Use Types Packs/Day Years [...] st Contact Info) Description 09/19/2024 9:30 AM WOODEN SHADE HARDWARE INSTALLER [facility]medicine [facility] [address] [place] [address] Justyn Miranda, PROGRAM COORDINATOR EXECUTIVE EDUCATION #[address] [place] [address] Discharge Disposition: Discharged to home or Selfcare documented as of this encounter Goals Goal Patient Goal Type Associated Problems Recent Progress Patient-Stated? Author I need to be able to cope better with my grief and bitterness towards my family within the next six months Behavioral Health On track(2024 9:24 AM WOODEN SHADE HARDWARE INSTALLER) Yes Justyn Miranda LCSW Note: Goal Reviewed today with: patient Readiness to change: Ready to change Department associated with goal: [facility] Steps to achieve goal: Patient to be counseled on coping with grief, during her 45 min individual therapy sessions, 2-3 times per month Patient to be counseled on aspects of healthy self-care, during her 45 min individual sessions, 2-3 times per month Behavioral Health Behavioral Health On track(2024 9:24 AM WOODEN SHADE HARDWARE INSTALLER) No Justyn Miranda LCSW Note: Goal: Patient will be able to report improved mood/coping ability for family stressors/discord, to an acceptable level within the next six months Goal Reviewed today with: patient Readiness to change: Ready to change Department associated with goal: [facility] Steps to achieve goal: [...] documented as of this encounter Care Teams Reprographics Associate Relationship Specialty Start Date End Date Milly Celaya, FOOD EDITOR, GUNNER'S MATE M JamieA [facility] [place] [place] [address] PCP - General Obstetrics & Gynecology 05/23/18 Wilian Sultana MD Consulting Physician Neurology 08/11/16 06/24/24 Darnell Bryant MD [address] [facility] [place] [id number] Psychiatry 03/16/18 documented as of this encounter
--- OUTSIDE RECORDS SUMMARY | 2024-09-05 15:46 | XMS_ITS | Encounter Summary ---
Author Organization [facility] Address [address] [facility] [place] [address] Phone Care Team Providers Care Packing Machine Pilot Can Router Name Role Phone Wilian Sultana MD Unavailable Darnell Bryant MD Unavailable Milly Celaya APRN, CLINICAL BIOCHEMIST Primary Care Provider Unavailable Encounter Details Date Type Department Care Team (Late st Contact Info) Description 12/20/2023 Behavior[facility] Health [facility] 1 [place] [address] Justyn Miranda, FARM CONTRACTOR BUYER #1 [place] [address] Social History Tobacco Use Types Packs/Day Years [...] st Contact Info) Description 09/19/2024 9:30 AM PACKAGE SORTER [facility] 1 [place] [address] Justyn Miranda, FARM CONTRACTOR BUYER [address] [place] [address] Discharge Disposition: Discharged to home or Selfcare documented as of this encounter Goals Goal Patient Goal Type Associated Problems Recent Progress Patient-Stated? Author I need to be able to cope better with my grief and bitterness towards my family within the next six months Behavioral Health On track(2024 9:24 AM PACKAGE SORTER) Yes Justyn Miranda LCSW Note: Goal Reviewed today with: patient Readiness to change: Ready to change Department associated with goal: [facility] SERVICES Steps to achieve goal: Patient to be counseled on coping with grief, during her 45 min individual therapy sessions, 2-3 times per month Patient to be counseled on aspects of healthy self-care, during her 45 min individual sessions, 2-3 times per month Behavioral Health Behavioral Health On track(2024 9:24 AM PACKAGE SORTER) No Justyn Miranda LCSW Note: Goal: Patient will be able to report improved mood/coping ability for family stressors/discord, to an acceptable level within the next six months Goal Reviewed today with: patient Readiness to change: Ready to change Department associated with goal: [facility]IOR[facility] HE[facility] SERVICES Steps to achieve [...] documented as of this encounter Care Teams Packing Machine Pilot Can Router Relationship Specialty Start Date End Date Milly Celaya, CASEY SAW OPERATOR, CLINICAL BIOCHEMIST JamieA [place] [address] PCP - General Obstetrics & Gynecology 05/23/18 Wilian Sultana MD Consulting Physician Neurology 08/11/16 06/24/24 Darnell Bryant MD [address] [facility] [id number] Psychiatry 03/16/18 documented as of this encounter
--- OUTSIDE RECORDS SUMMARY | 2024-09-05 15:46 | XMS_ITS | Encounter Summary ---
Author Organization [facility] Address [address] [place] [address]. [place], [place] [id number] [place] [address] Care Team Providers Care Tank Car Loader Name Role Phone Sara Vela MD Primary Care Provider Gin Toth MD Unavailable [phone] Augustin Goodson MD Unavailable [phone] Darnell Bryant MD Unavailable [phone] Leon Oneill MD Unavailable Rick Rivas MD Unavailable Encounter Details Date Type Department Care Team (Late st Contact Info) Description 01/26/2022 [email or web address] Message [facility] Patient Accounts [address] [place] [address] [facility] Provider Payment Plan - Past due Social History Tobacco Use Types Packs/Day Years Used Date Smoking Tobacco: Never Smokeless Tobacco: Never Comments:non smoker Alcohol Use Standard Drinks/Week Comments Never 0 (1 standard drink = 0.6 oz pur e alcohol) Comments No Sex and Gender Information Value Date Recorded Sex Assigned at Not on file Legal Sex Female 6:40 PM CDT Gender Identity Female 11/26/2021 6:02 AM CDT Sexual Orientation Not on file documented as of this encounter Plan of Treatment Not on file documented as of this encounter Visit Diagnoses Not on filedocumented in this encounter Care Teams Tank Car Loader Relationship Specialty Start Date End Date Sara Vela MD [address] [place] [address] PCP - General FAMILY PRACTICE 07/07/21 Gin Toth MD [facility] [facility] [address] [place], [place] [id number] CARDIOVASCULAR DISEASE 08/31/21 Augustin Goodson MD [address] [facility] [address] [place] [address] Referring Physician NEPHROLOGY 08/31/21 Darnell Bryant MD [facility] [place] [address] [facility] [place], [place] [address] Psychiatry 08/31/21 Leon Oneill MD [address] [facility] [address] [place] [address] HEMATOLOGY/ONCOLOGY 08/31/21 Rick Rivas MD [address] [place] [address] Referring Physician RHEUMATOLOGY 08/31/21 documented as of this encounter
--- OUTSIDE RECORDS SUMMARY | 2024-09-05 15:46 | XMS_ITS | Encounter Summary ---
Author Organization [facility] Address [address] [facility] [place] [address] Phone Care Team Providers Care Air Conditioning Service Technician Name Role Phone Wilian Sultana MD Unavailable Darnell Bryant MD Unavailable Milly Celaya APRN, BARKEEPER Primary Care Provider Unavailable Encounter Details Date Type Department Care Team (Late st Contact Info) Description 06/22/2024 [facility] Health [facility] 1 [place] [address] Justyn Miranda, EDUCATIONAL THERAPY TEACHER #1 [place] [address] Social History Tobacco Use Types Packs/Day Years [...] st Contact Info) Description 09/19/2024 9:30 AM OPTOMETRIC TECHNICIAN [facility]medicine [facility] 1 [place] [address] Justyn Miranda, EDUCATIONAL THERAPY TEACHER [address] [place] [address] Discharge Disposition: Discharged to home or Selfcare documented as of this encounter Goals Goal Patient Goal Type Associated Problems Recent Progress Patient-Stated? Author I need to be able to cope better with my grief and bitterness towards my family within the next six months Behavioral Health On track(2024 9:24 AM OPTOMETRIC TECHNICIAN) Yes Justyn Miranda LCSW Note: Goal Reviewed today with: patient Readiness to change: Ready to change Department associated with goal: [facility] BEHAVIORAL HEALTH SERVICES Steps to achieve goal: Patient to be counseled on coping with grief, during her 45 min individual therapy sessions, 2-3 times per month Patient to be counseled on aspects of healthy self-care, during her 45 min individual sessions, 2-3 times per month Behavioral Health Behavioral Health On track(2024 9:24 AM OPTOMETRIC TECHNICIAN) No Justyn Miranda LCSW Note: Goal: Patient will be able to report improved mood/coping ability for family stressors/discord, to an acceptable level within the next six months Goal Reviewed today with: patient Readiness to change: Ready to change Department associated with goal: [facility] BE[facility]IORAL HE[facility] SERVICES Steps to achieve goal: [...] documented as of this encounter Care Teams Air Conditioning Service Technician Relationship Specialty Start Date End Date Milly Celaya, PIANO TUNER, BARKEEPER JamieA Salvador [facility] [place] [address] PCP - General Obstetrics & Gynecology 05/23/18 Wilian Sultana MD Consulting Physician Neurology 08/11/16 06/24/24 Darnell Bryant MD [address] [facility] [place] [id number] Psychiatry 03/16/18 documented as of this encounter
--- OUTSIDE RECORDS SUMMARY | 2024-09-05 15:46 | XMS_ITS | Clinical Summary ---
Author Organization [facility] Address [facility] [facility]. [place], [place] [address] [address] Care Team Providers Care Dental Equipment Installer And Servicer Name Role Phone Sara Vela MD Primary Care Provider Gin Toth MD Unavailable [phone] Augustin Goodson MD Unavailable [phone] Darnell Bryant MD Unavailable [phone] Leon Oneill MD Unavailable [phone] Rick Rivas MD Unavailable Allergies Active Allergy Reactions Criticality Noted Date Comments Tape Rash,Other (see comment) High 08/31/2021 Says the EKG leads being left on her skin caused 3rd degree nova of the skin. Amitriptyline Other (see comment) 08/31/2021 [place] drugged up a lot and felt strange when on amitriptyline for migraines Hydromorphone Anaphylaxis High 06/03/2014 Hr dropped to 13 DILAUDID allergy- bradycardia Was given this with diverticulitis flareup Iodinated Contrast Media Anaphylaxis,Unknown High 09/27/2016 IVP dye caused her throat to swell shut and had welts all over Lamotrigine Rash,Other (see comment) High 11/15/2016 Other reaction(s): Urticaria Levofloxacin Anaphylaxis High 01/21/2017 Said her veins swelled and turned black from levoquin Lisinopril Shortness of Breath,Palpitations High 01/04/2019 Patient could not remember the reaction 08/31/21 Losartan Shortness of Breath,Palpitations High 02/06/2019 Tried taking it in Spring 2018 Patient does not remember the reaction Paroxetine Swelling High 10/20/2016 Penicillins Rash,Unknown High 09/27/2016 Other reaction(s): Unknown Other reaction(s): Unknown Prednisolone Palpitations High 12/21/2019 Prednisone Palpitations High 12/06/2018 Says steroids in large doses run my heart crazy and caused palpitations Sulfa Antibiotics Anaphylaxis,Rash High 04/05/2019 Says sulfa caused a rash and does not remember any other symptoms with this allergy Sulfamethoxazole-Trim ethoprim Anaphylaxis High 03/16/2018 Medications Aspirin 325 MG Cap aspirin 08/21/19 21 Active ALPRAZolam 0.5 MG tablet Take 0.5 mg by mouth every 8 (eight) hours as needed. Does not take this when she is taking hydrocodone Active HYDROcodone-Acetam inophen 10-300 MG Tab hydrocodone 10 mg-acetaminophen 300 mg tablet Take 1 tablet every 6 hours by oral route. 09/25/19 21 Active metoprolol succinate ER 25 MG 24 hr tablet metoprolol succinate ER 25 mg tablet,extended release 24 hr TAKE 2 TABLETS BY MOUTH ONCE DAILY 07/10/20 21 Active valACYclovir 1 g tablet TAKE 1 TABLET BY MOUTH EVERY 8 HOURS FOR 7 DAYS FOR HERPES FLARE UP 01/10/20 21 Active nitroglycerin 0.[address] 0.4 mg under the tongue every 5 (five) minutes as needed. 08/17/19 22 Active escitalopram 20 MG tablet Take 1.5 tablets by mouth nightly. 06/24/20 21 Active vitamin C 500 MG Chew Tab chewable tablet Chew 500 mg by mouth daily. Active vitamin D3, cholecalciferol, 25 MCG (1000 UT) capsule Active ondansetron 4 MG disintegrating tablet Prn when has diverticulitis flare up 01/10/20 21 Active Lidocaine 1.8 % PatchIndications:O rthopedic aftercare Apply 1 patch topically daily. 30 patch 09/15/19 22 Active Family History Medical History Relation Comments Diabetes Daughter 1 uncontrolled olena betes Hypertension Daughter 1 Kidney Disease Daughter 1 was on dialysis Cancer Daughter 3 leukemia, with m ets to female organs Diabetes Daughter 3 Hypertension Daughter 3 Cancer Father skin cancer with mets to brain Cancer Maternal Aunt Cancer Maternal Grandfather Cancer Maternal Uncle Breast Cancer Mother Cancer Mother bladder cancer, bladder removed, had ostomy, breast cancer with mets to lungs Diabetes Other Hyperlipidemia Other Kidney Disease Other was not on dialy sis Stroke Paternal Aunt Heart Disease Paternal Grandfather Stroke Paternal Grandfather Heart Disease Paternal Grandmother Relation Status Comments Daughter 1 (Age 52) was on dialysi s, with Covid-19 in November 2020 Daughter 2 shortly aft er Daughter 3 Alive Daughter 4 Alive Father (Age near age 80) Maternal Aunt Maternal Grandfather Maternal Grandmother Maternal Uncle Mother (Age near age 80) Other (Age a round January 2021) had KS, HTN, poorly controlled diabetes, in sleep with KS. patient raised him when he was a child Paternal Aunt Paternal Grandfather Paternal Grandmother Son Alive Social History Tobacco Use Types Packs/Day Years Used Date Smoking Tobacco: Never Smokeless Tobacco: Never Tobacco Cessation:Counseling Given: Yes Comments:non smoker Alcohol Use Standard Drinks/Week Comments Never 0 (1 standard drink = 0.6 oz pur e alcohol) Comments No Sex and Gender Information Value Date Recorded Sex Assigned at Not on file Legal Sex Female 6:40 PM CDT Gender Identity Female 11/26/2021 6:02 AM CDT Sexual Orientation Not on file Last Filed Vital Signs Vital Sign Reading Time Taken Comments Blood Pressure 122/68 11/26/2021 9:52 AM CDT Pulse 63 10/13/2021 11:17 AM WIND TURBINE INSTALLER Temperature 36.4 ??C (97.6 ??F) 10/13/2021 1 1:17 AM WIND TURBINE INSTALLER Respiratory Rate 18 10/13/2021 11:1 7 AM WIND TURBINE INSTALLER Oxygen Saturation 99% 10/13/2021 11: 17 AM WIND TURBINE INSTALLER Inhaled Oxygen Concentration - - Weight 71.1 kg (156 lb 12.8 oz) 11/26/2021 9:52 AM CDT Height 157.5 cm (5' 2 ) 11/26/2021 9:52 AM CDT Body Mass Index 28.68 11/26/2021 9:52 AM CDT Plan of Treatment Health Maintenance Due Date Last Done Comments Colorectal Cancer Screening Colonoscopy (10 Years) 1948 Hepatitis C 1966 DTaP, Tdap and Td Vaccines ( 1 - Tdap) 1967 Zoster Vaccines (1 of 2) 1998 Annual Medicare Wellness Visit 2013 Dexa Scan (General) 2013 Pneumococcal Vaccine: 65+ Years (2 of 2 - PPSV23 or PCV20) 07/17/2021 09/08/2020, 07/17/2020 RSV Immunization or 60+ Years (1 - 1-dose 75+ series) 2023 COVID-19 Vaccine (2 - 2023-2 5 season) 2024 07/08/2021 Influenza Adult (#1) 2024 05/22/2020 Meningococcal B Vaccine Aged Out No l onger eligible based on patient's age to complete this topic Meningococcal Vaccine Aged Out No lavinia jose eligible based on patient's age to complete this topic RSV Immunizations Under 20 Months Aged Out No longer eligible b ased on patient's age to complete this topic Insurance [employer] [facility] Care Teams Dental Equipment Installer And Servicer Relationship Specialty Start Date End Date Sara Vela MD [address] [place] [address] PCP - General FAMILY PRACTICE 07/07/21 Gin Toth MD [address] [facility] [address] [place], [place] [id number] CARDIOVASCULAR DISEASE 08/31/21 Augustin Goodson MD [address] [facility] [address] [place] [address] Referring Physician NEPHROLOGY 08/31/21 Darnell Bryant MD [facility] [place] [facility] [address] [facility] [place], [place] [address] Psychiatry 08/31/21 Leon Oneill MD [address] [facility] [address] [place] [address] HEMATOLOGY/ONCOLOGY 08/31/21 Rick Rivas MD [address] [place] [address] Referring Physician RHEUMATOLOGY 08/31/21
--- OUTSIDE RECORDS SUMMARY | 2024-09-05 15:46 | XMS_ITS | Encounter Summary ---
Author Organization [facility] Address [address] [facility] [place] [address] Phone Care Team Providers Care Senior Technical Recruiter Name Role Phone Wilian Sultana MD Unavailable [phone] Darnell Bryant MD Unavailable Milly Celaya APRN, CORN LAB TECHNICIAN Primary Care Provider Unavailable Encounter Details Date Type Department Care Team (Late st Contact Info) Description 10/04/2023 Behavioral Health [facility] 1 [place] [address] Justyn Miranda, DIRECTOR OF INCOME TAX #[address] [place] [address] Social History Tobacco Use Types Packs/Day Years [...] st Contact Info) Description 09/19/2024 9:30 AM EMERGENCY ROOM RN Telemedicine [facility] 1 [place] [address] Justyn Miranda, DIRECTOR OF INCOME TAX [address] [place] [address] Discharge Disposition: Discharged to home or Selfcare documented as of this encounter Goals Goal Patient Goal Type Associated Problems Recent Progress Patient-Stated? Author I need to be able to cope better with my grief and bitterness towards my family within the next six months Behavioral Health On track(2024 9:24 AM EMERGENCY ROOM RN) Yes Justyn Miranda LCSW Note: Goal Reviewed today with: patient Readiness to change: Ready to change Department associated with goal: [facility]IORAL HE[facility] SERVICES Steps to achieve goal: Patient to be counseled on coping with grief, during her 45 min individual therapy sessions, 2-3 times per month Patient to be counseled on aspects of healthy self-care, during her 45 min individual sessions, 2-3 times per month Behavioral Health Behavioral Health On track(2024 9:24 AM EMERGENCY ROOM RN) No Justyn Miranda LCSW Note: Goal: Patient will be able to report improved mood/coping ability for family stressors/discord, to an acceptable level within the next six months Goal Reviewed today with: patient Readiness to change: Ready to change Department associated with goal: [facility] Steps to achieve goal: [...] documented as of this encounter Care Teams Senior Technical Recruiter Relationship Specialty Start Date End Date Milly Celaya, TRUCK REPAIR SUPERVISOR, CORN LAB TECHNICIAN JamieA Salvador [facility] [place] [address] PCP - General Obstetrics & Gynecology 05/23/18 Wilian Sultana MD Consulting Physician Neurology 08/11/16 06/24/24 Darnell Bryant MD [address] [facility] [place] [address] Psychiatry 03/16/18 documented as of this encounter
--- OUTSIDE RECORDS SUMMARY | 2024-09-05 15:46 | XMS_ITS | Encounter Summary ---
Author Organization [facility] Address [address] [facility] [place] [address] Phone Care Team Providers Care Archeology Faculty Member Name Role Phone Darnell Bryant MD Unavailable Milly Celaya APRN, GAS ANALYST Primary Care Provider Unavailable Encounter Details Date Type Department Care Team (Late st Contact Info) Description 08/06/2024 Behavioral Health [facility] [address] [place] [address] Justyn Miranda, LEAD FRONT END DEVELOPER #[address] [place] [address] Social History Tobacco Use Types Packs/Day Years [...] st Contact Info) Description 09/19/2024 9:30 AM ROUTE SALES ASSOCIATE Telemedicine [facility] [address] [place] [id number] Justyn Miranda, LEAD FRONT END DEVELOPER [address] [place] [address] Discharge Disposition: Discharged to home or Selfcare documented as of this encounter Goals Goal Patient Goal Type Associated Problems Recent Progress Patient-Stated? Author I need to be able to cope better with my grief and bitterness towards my family within the next six months Behavioral Health On track(2024 9:24 AM ROUTE SALES ASSOCIATE) Yes Justyn Miranda LCSW Note: Goal Reviewed today with: patient Readiness to change: Ready to change Department associated with goal: [facility] BEHAVIORAL HEALTH SERVICES Steps to achieve goal: Patient to be counseled on coping with grief, during her 45 min individual therapy sessions, 2-3 times per month Patient to be counseled on aspects of healthy self-care, during her 45 min individual sessions, 2-3 times per month Behavioral Health Behavioral Health On track(2024 9:24 AM ROUTE SALES ASSOCIATE) No Justyn Miranda LCSW Note: Goal: Patient will be able to report improved mood/coping ability for family stressors/discord, to an acceptable level within the next six months Goal Reviewed today with: patient Readiness to change: Ready to change Department associated with goal: [facility] BE[facility]AVIORAL HEALTH SERVICES Steps to achieve [...] documented as of this encounter Care Teams Archeology Faculty Member Relationship Specialty Start Date End Date Milly Celaya, RESEARCH CHEMICAL ENGINEER, GAS ANALYST [address] [address] PCP - General Obstetrics & Gynecology 05/23/18 Darnell Bryant MD [address] [place] [address] Psychiatry 03/16/18 documented as of this encounter
--- OUTSIDE RECORDS SUMMARY | 2024-09-05 15:46 | XMS_ITS | Encounter Summary ---
Author Organization [facility] Address [address] [place] [address]. [place], [place] [address] [place] [address] Care Team Providers Care Building Construction Inspector Name Role Phone Sara Vela MD Primary Care Provider Gin Toth MD Unavailable [phone] Augustin Goodson MD Unavailable [phone] Darnell Bryant MD Unavailable [phone] Leon Oneill MD Unavailable [phone] Rick Rivas MD Unavailable Encounter Details Date Type Department Care Team (Late st Contact Info) Description 11/19/2021 MyChart Message Enc [facility] - [place] [address] [place], [place] [phone] Rudy Velasquez MD [address] [place] [address] I need help please Social History Tobacco Use Types Packs/Day Years [...] on filedocumented in this encounter Care Teams Building Construction Inspector Relationship Specialty Start Date End Date Sara Vela MD [address] [facility] [place] [address] PCP - General FAMILY PRACTICE 07/07/21 Gin Toth MD [address] [facility] [address] [place] [address] CARDIOVASCULAR DISEASE 08/31/21 Augustin Goodson MD [address] [facility] [address] [place] [address] Referring Physician NEPHROLOGY 08/31/21 Darnell Bryant MD [facility] [address] [facility] [place] [address] Psychiatry 08/31/21 Leon Oneill MD [address] [place] [address] HEMATOLOGY/ONCOLOGY 08/31/21 Rick Rivas MD [address] [place] [address] Referring Physician RHEUMATOLOGY 08/31/21 documented as of this encounter
--- OUTSIDE RECORDS SUMMARY | 2024-09-05 15:46 | XMS_ITS | Continuity of Care Document ---
Author Organization [facility] Address [address] [place] [address] [place] [address] Phone Care Team Providers Care Community Artist Name Role Phone Marcus Redmond Unavailable Unavailable [...] Providers Copied on Encounter Office/outpat ient Visit, [facility], [address] [place] [address] [address], [place], [place], [id number], [place] tel:[phone] [facility] [place] No Information 9-201 0 Nyla Velazquez. [address] [place] , [address], [place], [place], [facility], . tel:[phone] Office/outpat ient Visit, [facility], [address] [place] [address] [address], [place], [place], [id number], [place] tel:[phone] [facility] [place] No Information 1-200 9 Hali Barahona. [address] [place] , [address], [place], [address], . tel:[phone] Office/outpat ient Visit, [facility], [address] [place] [address] [address], [place], [place], [id number], [place] tel:[phone] [facility] [place] No Information May-0 7-200 9 Lal Brooklyn. [address] , [address], [place], [place], [facility], . tel:[phone] Office/outpat ient Visit, [facility], [address] [place] [address] [address], [place], [place], [id number], [place] tel:[phone] [facility] [place] No Information Apr-2 7-200 9 Trey Grimaldohil. [address], [place], [place], [facility], . tel:[phone] [facility], [address] [place] [address] [address], [place], [place], [id number], tel:[phone] [facility] [place] No Information Nov-2 3-200 9 Hali Barahona. [address] , [address], [place], [facility], . tel:[phone] [facility], [address] [place] [address] [address], [place], [place], [id number], tel:[phone] [facility] [place] No Information Ish-2 0-200 9 Hall OD Darnell. [address] , [address], [place], [facility], [place]. tel:[phone] [facility], [address] [place] [address] [address], [place], [place], [id number], [place] tel:[phone] [facility] No Information Feb-2 8-200 7 Hall OD Darnell. [address] , [address], [place], [place], [facility], . tel:[phone] Family History Family Member Type Diagnosis Age At Onset No Information Payers Payer name Insurance type Covered constitution party ID Authoriza tion(s) No Information Social [...]
--- OUTSIDE RECORDS SUMMARY | 2024-09-05 15:46 | XMS_ITS | Patient Health Summary ---
Author Organization [facility] Address [address] [place] [address] Care Team Providers Care Senior Agricultural Assistant Name Role Phone Sara Vela MD Primary Care Provider Note from [facility],non-owned Affiliates and Associated Physician Practices is amultiple site organization consisting of ambulatory clinics and hospital sitesin [place], [place], [place] and [place]. This disclosure is being madepursuant to the Care Everywhere program and may not contain all information available regarding this patient. Last updated 18.[facility] Allergies * Contrast-Iodinated Agents For Ct/Other(Unknown) * Hydromorphone(Anaphylaxis) -High Criticality * Lamotrigine(Urticaria) -Medium Criticality * Levofloxacin(Anaphylaxis) -High Criticality * Paroxetine(Swelling) * Penicillins(Unknown) Medications * Be aware that medications may not be up to date on this document. Alwaysverify current medications with the patient. * aspirin (ASPIRIN) 81 MG tablet Take 81 mg by mouth * metoprolol succinate XL 24hr (TOPROL XL) 25 MG tablet(Started 08/03/2016) Reported on 01/04/2017 * ALPRAZolam (XANAX) 0.5 MG tablet Take 0.5 mg by mouth every 8 hours * HYDROcodone-acetaminophen (NORCO) 7.5-325 MG tablet Take 1 tablet by mouth every 4 hours * pantoprazole EC (PROTONIX) 40 MG tablet Take 40 mg by mouth * ciprofloxacin (CIPRO) 500 MG tablet Take 500 mg by mouth 2 times daily Social History Tobacco Use Types Packs/Day Years Used Date Smoking Tobacco: Never Assessed Sex and Gender Information Value Date Recorded Sex Assigned at Not on file Gender Identity Not on file Sexual Orientation Not on file Last Filed Vital Signs Vital Sign Reading Time Taken Comments Blood Pressure 112/62 06/23/2017 4:02 PM COUNSELING CENTER DIRECTOR Pulse 55 06/23/2017 4:02 PM COUNSELING CENTER DIRECTOR Temperature 36.8 ??C (98.2 ??F) 06/23/2017 4:02 PM CS T Respiratory Rate 16 06/23/2017 4:02 PM COUNSELING CENTER DIRECTOR Oxygen Saturation - - Inhaled Oxygen Concentration - - Weight 67.1 kg (148 lb) 06/23/2017 4:02 PM COUNSELING CENTER DIRECTOR Height 157.5 cm (5' 2 ) 06/23/2017 4:02 PM COUNSELING CENTER DIRECTOR Body Mass Index 27.07 06/23/2017 4:02 PM COUNSELING CENTER DIRECTOR Care Teams Senior Agricultural Assistant Relationship Specialty Start Date End Date Sara Vela MD [address] [place] [address] PCP - General 12/06/22
--- OUTSIDE RECORDS SUMMARY | 2024-09-05 15:46 | XMS_ITS | Encounter Summary ---
Author Organization [facility] Address [address] [facility] [place] [address] Phone Care Team Providers Care Machine Set Up Operator Paper Goods Name Role Phone Wilian Sultana MD Unavailable [phone] Darnell Bryant MD Unavailable Milly Celaya APRN, TANNERY GUMMER Primary Care Provider Unavailable Encounter Details Date Type Department Care Team (Late st Contact Info) Description 04/05/2024 Behavioral Health [facility] [address] [place] [address] Justyn Miranda, DATA COMMUNICATIONS TECHNICIAN [address] [place] [address] Social History Tobacco Use Types Packs/Day Years [...] st Contact Info) Description 09/19/2024 9:30 AM BAKING ASSISTANT Telemedicine [facility] [address] [place] [address] Justyn Miranda, DATA COMMUNICATIONS TECHNICIAN [address] [place] [address] Discharge Disposition: Discharged to home or Selfcare documented as of this encounter Goals Goal Patient Goal Type Associated Problems Recent Progress Patient-Stated? Author I need to be able to cope better with my grief and bitterness towards my family within the next six months Behavioral Health On track(2024 9:24 AM BAKING ASSISTANT) Yes Justyn Miranda LCSW Note: Goal Reviewed today with: patient Readiness to change: Ready to change Department associated with goal: [facility] Steps to achieve goal: Patient to be counseled on coping with grief, during her 45 min individual therapy sessions, 2-3 times per month Patient to be counseled on aspects of healthy self-care, during her 45 min individual sessions, 2-3 times per month Behavioral Health Behavioral Health On track(2024 9:24 AM BAKING ASSISTANT) No Justyn Miranda LCSW Note: Goal: Patient will be able to report improved mood/coping ability for family stressors/discord, to an acceptable level within the next six months Goal Reviewed today with: patient Readiness to change: Ready to change Department associated with goal: [facility] Steps to [...] documented as of this encounter Care Teams Machine Set Up Operator Paper Goods Relationship Specialty Start Date End Date Milly Celaya, SALES ASSOCIATE KEY HOLDER, TANNERY GUMMER JamieA Salvador [facility] [place] [address] PCP - General Obstetrics & Gynecology 05/23/18 Wilian Sultana MD Consulting Physician Neurology 08/11/16 06/24/24 Darnell Bryant MD [address] [facility] [id number] Psychiatry 03/16/18 documented as of this encounter
--- OUTSIDE RECORDS SUMMARY | 2024-09-05 15:46 | XMS_ITS | Encounter Summary ---
Author Organization [facility] Address [address] [facility] [place] [address] Phone Care Team Providers Care Aerial Gunner Name Role Phone Wilian Sultana MD Unavailable Darnell Bryant MD Unavailable Milly Celaya APRN, REGIONAL SALES MANAGER Primary Care Provider Unavailable Encounter Details Date Type Department Care Team (Late st Contact Info) Description 03/05/2024 Behavior[facility] [address] [place] [address] Justyn Miranda, CHAIR CAR DRIVER [address] [place] [address] Social History Tobacco Use Types Packs/Day Years [...] st Contact Info) Description 09/19/2024 9:30 AM CIVIL TRANSPORTATION ENGINEER Telemedicine [facility] [address] [place] [address] Justyn Miranda, CHAIR CAR DRIVER [address] [place] [address] Discharge Disposition: Discharged to home or Selfcare documented as of this encounter Goals Goal Patient Goal Type Associated Problems Recent Progress Patient-Stated? Author I need to be able to cope better with my grief and bitterness towards my family within the next six months Behavioral Health On track(2024 9:24 AM CIVIL TRANSPORTATION ENGINEER) Yes Justyn Miranda LCSW Note: Goal Reviewed [...] Health Behavioral Health On track(2024 9:24 AM CIVIL TRANSPORTATION ENGINEER) No Justyn Miranda LCSW Note: Goal: Patient [...] documented as of this encounter Care Teams Aerial Gunner Relationship Specialty Start Date End Date Milly Celaya, COTTON BREEDER, REGIONAL SALES MANAGER JamieA Salvador [facility] [address] PCP - General Obstetrics & Gynecology 05/23/18 Wilian Sultana MD Consulting Physician Neurology 08/11/16 06/24/24 Darnell Bryant MD [address] [facility] [id number] Psychiatry 03/16/18 documented as of this encounter
--- OUTSIDE RECORDS SUMMARY | 2024-09-05 15:46 | XMS_ITS | Clinical Summary ---
Author Organization [facility] Address [address] [place] [address] Care Team Providers Care Materials Planning Analyst Name Role Phone Sara Vela MD Primary Care Provider Source Comments [facility],non-owned Affiliates and Associated Physician Practices is amultiple site organization consisting of ambulatory clinics and hospital sitesin [place], [place], [place] and [place]. This disclosure is being madepursuant to the Care Everywhere program and may not contain all information available regarding this patient. Last updated 18.[facility] Allergies Active Allergy Reactions Criticality Noted Date [...] Comments Blood Pressure 112/62 06/23/2017 4:02 PM DISASTER RECOVERY COORDINATOR Pulse 55 06/23/2017 4:02 PM DISASTER RECOVERY COORDINATOR Temperature 36.8 ??C (98.2 ??F) 06/23/2017 4:02 PM CS T Respiratory Rate 16 06/23/2017 4:02 PM DISASTER RECOVERY COORDINATOR Oxygen Saturation - - Inhaled Oxygen Concentration - - Weight 67.1 kg (148 lb) 06/23/2017 4:02 PM DISASTER RECOVERY COORDINATOR Height 157.5 cm (5' 2 ) 06/23/2017 4:02 PM DISASTER RECOVERY COORDINATOR Body Mass Index 27.07 06/23/2017 4:02 PM DISASTER RECOVERY COORDINATOR Plan of Treatment Health Maintenance Due Date Last Done Comments BONE DENSITY TESTING 1948 COLOGUARD (AGES 45-75) - COL ON CA SCREENING 1948 COLON MONITORING 1948 COLONOSCOPY - COLON CA SCREENING 1948 CT COLONOGRAPHY - COLON CA SCREENING 1948 Colorectal Cancer Screening 1948 FIT - COLON CA SCREENING 1948 FLEX SIG - COLON CA SCREENING 1948 LIPID TESTING 1948 MAMMOGRAM 1948 HEPATITIS C SCREENING 09/20/1966 DTAP/TDAP/TD VACCINES (1 - Tdap) 1967 PNEUMOCOCCAL VACCINE 50+ (1 of 1 - PCV) 1998 ZOSTER VACCINE (1 of 2) 1998 SCREENING FOR DIABETES 06/23/2017 Respiratory Syncytial Virus (RSV) Vaccine Pt: or over 60 yrs (1 - 1-dose 75+ series) 2023 COVID-19 VACCINE ( - 2023-2 5 season) 2024 INFLUENZA VACCINE (#1) 2024 DEPRESSION SCREENING 08/08/2024 MEDICARE AWV ? CALENDAR YEAR 2024 HEPATITIS B VACCINE Aged Out No longe r eligible based on patient's age to complete this topic HIB VACCINE Aged Out No longer eligi ble based on patient's age to complete this topic HPV VACCINE Aged Out No longer eligi ble based on patient's age to complete this topic MENINGOCOCCAL (Group B) VACCINE Aged Out No longer eligible based on patient's age to complete this topic MENINGOCOCCAL VACCINE Aged Out No lavinia jose eligible based on patient's age to complete this topic Insurance Payer Benefit Plan / Group Subscriber ID Effective Dates Phone Address Type Med Access OPEN ACCESS HMO [id number] Effective for all dates [address] [place] [phone] O AETNA MEDICARE ADV AETNA MEDICARE ADV HMO/PPO/PFFS Effective for all dates [address] [place] [address] Medicare-Ma naged Care Onsite [employer] HE[employer] OPEN ACCESS HMO [id number] Effective for all dates [address] [place] [address] O AETNA MEDICARE ADV AETNA MEDICARE ADV HMO/PPO/PFFS Effective for all dates [address] [place] [address] Medicare-Ma naged Care Onsite [employer] HE[employer] OPEN ACCESS HMO [id number] Effective for all dates [address] [place] [address] [facility] AETNA MEDICARE ADV AETNA MEDICARE ADV HMO/PPO/PFFS [id number] Effective for all dates [address] [place] [address] Medicare-Ma naged Care Onsite [employer] HE[employer] OPEN ACCESS HMO [id number] Effective for all dates [address] [place] [address] HMO MEDICARE MEDICARE PART A AND B [id number] 07/08/2011-Pre sent [address] [place] [address] Medicare MEDICARE [place] [id number] 07/08/2011-Pre sent [address] [place] [address] Medicare HEALTHLINK HEALTHLINK [facility] OA [id number] Effective for all dates [address] [place] [address] HMO Care Teams Materials Planning Analyst Relationship Specialty Start Date End Date Sara Vela MD [address] [place] [address] PCP - General 12/06/22
--- OUTSIDE RECORDS SUMMARY | 2024-09-05 15:46 | XMS_ITS | Encounter Summary ---
Author Organization [facility] Address [address] [facility] [place] [address] Phone Care Team Providers Care Land Sales Agent Name Role Phone Wilian Sultana MD Unavailable [phone] Darnell Bryant MD Unavailable Milly Celaya APRN, STRUCTURAL MILL SUPERVISOR Primary Care Provider Unavailable Encounter Details Date Type Department Care Team (Late st Contact Info) Description 02/02/2024 [facility] [address] [place] [address] Jutsyn Miranda, POLICE PATROL LIEUTENANT [address] [place] [address] Social History Tobacco Use Types Packs/Day Years [...] st Contact Info) Description 09/19/2024 9:30 AM HYPNOTHERAPIST [facility]medicine [facility] [address] [place] [address] Justyn Miranda, POLICE PATROL LIEUTENANT [address] [place] [address] Discharge Disposition: Discharged to home or Selfcare documented as of this encounter Goals Goal Patient Goal Type Associated Problems Recent Progress Patient-Stated? Author I need to be able to cope better with my grief and bitterness towards my family within the next six months Behavioral Health On track(2024 9:24 AM HYPNOTHERAPIST) Yes Justyn Miranda LCSW Note: Goal Reviewed today with: patient Readiness to change: Ready to change Department associated with goal: [facility] Steps to achieve goal: Patient to be counseled on coping with grief, during her 45 min individual therapy sessions, 2-3 times per month Patient to be counseled on aspects of healthy self-care, during her 45 min individual sessions, 2-3 times per month Behavioral Health Behavioral Health On track(2024 9:24 AM HYPNOTHERAPIST) No Justyn Miranda LCSW Note: Goal: Patient will be able to report improved mood/coping ability for family stressors/discord, to an acceptable level within the next six months Goal Reviewed today with: patient Readiness to change: Ready to change Department associated with goal: [facility] Steps to achieve goal: [...] documented as of this encounter Care Teams Land Sales Agent Relationship Specialty Start Date End Date Milly Celaya, PARISH NURSE, STRUCTURAL MILL SUPERVISOR JamieA [place] [address] PCP - General Obstetrics & Gynecology 05/23/18 Wilian Sultana MD Consulting Physician Neurology 08/11/16 06/24/24 Darnell Bryant MD [address] [facility] [id number] Psychiatry 03/16/18 documented as of this encounter
--- OUTSIDE RECORDS SUMMARY | 2024-09-05 15:46 | XMS_ITS | Clinical Summary ---
Author Organization [facility] Address [address], [place] [address] Phone Care Team Providers Care Benefits Technician Name Role Phone Darnell Bryant MD Unavailable Milly Celaya APRN, WINDOW TINTER Primary Care Provider Unavailable Allergies Active Allergy Reactions Criticality Noted Date Comments Sulfamethoxazole-Trimethoprim Anaphylaxis 03/16 Iodinated Contrast Media Unknown 09/27/2016 Lamotrigine Hives 11/15/2016 Levofloxacin Anaphylaxis High 01/21/2017 Paroxetine Hcl Swelling 10/20/2016 Penicillins Unknown 09/27/2016 Medications metoprolol Succinate (TOPROL-XL) 25 MG TABLET SR 24 HR Reported on 01/04/2017 2 08/03/2016 Active HYDROcodone-karen taminophen (NORCO) 7.5-325 MG Tablet TK 1 T PO Q 8 H PRN P 0 12/09/2016 Active ALPRAZolam (XANAX) 0.5 MG Tablet Take 0.5 mg by mouth 3 times daily as needed. Active Coenzyme Q-10 200 MG Capsule Take by mouth. 03/07/2018 Active Cyanocobalamin (VITAMIN B 12 PO) Take by mouth. Active aspirin 325 MG Tablet Take 325 mg by mouth daily. Active lisinopril (PRINIVIL, ZESTRIL) 10 MG Tablet Take 10 mg by mouth daily. Active citalopram (CeleXA) 10 MG Tablet Take 10 mg by mouth daily. Active Escitalopram Oxalate 5 MG Tablet Take 30 mg by mouth daily. Active Mirtazapine (REMERON) 7.5 MG Tablet Take 7.5 mg by mouth nightly. Active Active Problems Problem Noted Date Diagnosed Date Generalized anxiety disorder 05/05/2018 Panic disorder 05/05/2018 Adjustment disorder with mixed anxiety and depre ssed mood 05/05/2018 Drug rash 11/26/2016 Tremor 10/11/2016 Insomnia 09/27/2016 Spell of abnormal behavior 09/27/2016 Resolved Problems Problem Noted Date Diagnosed Date Resolved Date Depression 10/20/2016 05/05/2018 Memory loss 10/20/2016 05/05/2018 Encounters Date Type Department Care Team Description 08/31/2024 9:15 AM FENDER MECHANIC APPRENTICE Telemedicine [facility] [address] [place] [address] Justyn Miranda LCSW Generalized anxiety disorder (Primary Dx); Panic disorder Discharge Disposition: Discharged to home or Selfcare 08/31/2024 Travel 08/27/2024 Travel 08/06/2024 8:30 AM FENDER MECHANIC APPRENTICE Telemedicine [facility] [address] [place] [address] Justyn Miranda LCSW Generalized anxiety disorder (Primary Dx); Panic disorder; Adjustment disorder with mixed anxiety and depressed mood Discharge Disposition: Discharged to home or Selfcare 08/06/2024 Behavioral Health Patient Survey [facility] [address] [place] [address] Justyn Miranda LCSW 08/06/2024 Travel 07/18/2024 8:30 AM FENDER MECHANIC APPRENTICE Telemedicine [facility] [address] [place] [address] Justyn Miranda LCSW Generalized anxiety disorder (Primary Dx); Panic disorder; Adjustment disorder with mixed anxiety and depressed mood Discharge Disposition: Discharged to home or Selfcare 07/18/2024 Travel 06/22/2024 8:30 AM FENDER MECHANIC APPRENTICE Telemedicine [facility] [address] [place] [address] Justyn Miranda LCSW Generalized anxiety disorder (Primary Dx); Panic disorder; Adjustment disorder with mixed anxiety and depressed mood Discharge Disposition: Discharged to home or Selfcare 06/22/2024 Behavioral Health Patient Survey [facility] [address] [place] [address] Justyn Miranda LCSW 06/22/2024 Travel 06/07/2024 8:30 AM CDT Telemedicine [facility] [address] [place] [address] Justyn Miranda LCSW Generalized anxiety disorder (Primary Dx); Panic disorder; Adjustment disorder with mixed anxiety and depressed mood Discharge Disposition: Discharged to home or Selfcare 06/07/2024 Travel from Last 3 Months Family History Medical History Relation Name Comments Depression Daughter Alcohol Abuse Mother Relation Name Status Comments Daughter Mother Social History Tobacco Use Types Packs/Day Years Used Date Smoking Tobacco: Never Smokeless Tobacco: Never Tobacco Cessation:Counseling Given: No Alcohol Use Standard Drinks/Week Comments No 0 [...] Sign Reading Time Taken Comments Blood Pressure 126/70 05/17/2018 8:47 AM CDT Pulse 74 05/17/2018 8:47 AM CDT Temperature 36.7 ??C (98.1 ??F) 05/17/2018 8:47 AM CD T Respiratory Rate 16 05/17/2018 8:47 AM CDT Oxygen Saturation 98% 05/17/2018 8:47 AM CDT Inhaled Oxygen Concentration - - Weight 68.9 kg (151 lb 12.8 oz) 05/17/2018 8:47 AM CDT Height 157.5 cm (5' 2 ) 05/17/2018 8:47 AM CDT Body Mass Index 27.76 05/17/2018 8:47 AM CDT Plan of Treatment Upcoming Encounters Date Type Department Care Team (Late st Contact Info) Description 09/19/2024 9:30 AM FENDER MECHANIC APPRENTICE Telemedicine [facility] [address] [place] [address] Justyn Miranda LCSW [address] [facility] [place] [address] Discharge Disposition: Discharged to home or Selfcare Health Maintenance Due Date Last Done Comments DEXA Bone Density 1948 Hepatitis C Virus (HCV) Screening 1950 Colonoscopy 1993 Colorectal Cancer Screening 1993 Cologuard 1998 Immunochemical Fecal Occult Blood 1998 Zoster Immunization (1 of 2) 1998 Respiratory Syncytial Virus (RSV) Immunization (Adult) (1 - 1-dose 75+ series) 2023 SARS-COV-2 Immunization (2023- season) 2024 01/26/2022, 07/08/2021 Pneumococcal Immunization (50+ years) Completed 03/01/2023, 09/08/2020, 07/17/2020 Pneumococcal Immunization Combined Discontinued 03/01/2023, 09/08/2020, 07/17/2020 DTaP/Tdap/Td Immunization Discontinued 06/15/2023 TdaP Immunization Completed 06/15/2023 Influenza Immunization Completed , 06/15/2023, 05/13/2022, Additional history exists Hepatitis B Immunization Aged Out No longer eligible based on patient's age to complete this topic Meningococcal Immunization (ACWY) Aged Out No longer eligible based on patient's age to complete this topic Rotavirus Immunization Aged Out No lo nger eligible based on patient's age to complete this topic Goals Goal Patient Goal Type Associated Problems Recent Progress Patient-Stated? Author I need to be able to cope better with my grief and bitterness towards my family within the next six months Behavioral Health On track(2024 9:24 AM FENDER MECHANIC APPRENTICE) Yes Justyn Miranda, CHRISTIANO Note: Goal Reviewed today with: patient Readiness to change: Ready to change Department associated with goal: [facility] Steps to achieve goal: Patient to be counseled on coping with grief, during her 45 min individual therapy sessions, 2-3 times per month Patient to be counseled on aspects of healthy self-care, during her 45 min individual sessions, 2-3 times per month Behavioral Health Behavioral Health On track(2024 9:24 AM FENDER MECHANIC APPRENTICE) Justyn Monique, CHRISTIANO Note: Goal: Patient will be able to report improved mood/coping ability for family stressors/discord, to an acceptable level within the next six months Goal Reviewed today with: patient Readiness to change: Ready to change Department associated with goal: [facility] Steps to achieve goal: Patient counseled on coping with depression, including healthy leisure interests, seeking emotional support Patient counseled on healthy communication skills/setting healthy boundaries/expectations with family members Insurance [employer] MEDICARE Care Teams Benefits Technician Relationship Specialty Start Date End Date Milly Celaya, OIL AND GAS PRINCIPAL, WINDOW TINTER [address] [place] [address] PCP - General Obstetrics & Gynecology 05/23/18 [place] [address] Psychiatry 03/16/18
--- OUTSIDE RECORDS SUMMARY | 2024-09-05 15:47 | XMS_ITS | Encounter Summary ---
Author Organization [facility] Address [address] [facility] [place] [address] Phone Care Team Providers Care Junk Removal Specialist Name Role Phone Wilian Sultana MD Unavailable Darnell Bryant MD Unavailable Milly Celaya APRN, RADIOLOGY TECH Primary Care Provider Unavailable Encounter Details Date Type Department Care Team (Late st Contact Info) Description 08/31/2023 Behavioral Health [facility] [address] [place] [address] Justyn Miranda, FRUIT OR NUT FARMWORKER [address] [place] [address] Social History Tobacco Use Types Packs/Day Years [...] st Contact Info) Description 09/19/2024 9:30 AM DEPUTY COMMONWEALTH'S ATTORNEY Telemedicine [facility] [address] [place] [address] Justyn Miranda, FRUIT OR NUT FARMWORKER [address] [place] [address] Discharge Disposition: Discharged to home or Selfcare documented as of this encounter Goals Goal Patient Goal Type Associated Problems Recent Progress Patient-Stated? Author I need to be able to cope better with my grief and bitterness towards my family within the next six months Behavioral Health On track(2024 9:24 AM DEPUTY COMMONWEALTH'S ATTORNEY) Yes Justyn Miranda LCSW Note: Goal Reviewed today with: patient Readiness to change: Ready to change Department associated with goal: [facility] Steps to achieve goal: Patient to be counseled on coping with grief, during her 45 min individual therapy sessions, 2-3 times per month Patient to be counseled on aspects of healthy self-care, during her 45 min individual sessions, 2-3 times per month Behavioral Health Behavioral Health On track(2024 9:24 AM DEPUTY COMMONWEALTH'S ATTORNEY) No Justyn Miranda LCSW Note: Goal: Patient will be able to report improved mood/coping ability for family stressors/discord, to an acceptable level within the next six months Goal Reviewed today with: patient Readiness to change: Ready to change Department associated with goal: [facility] Steps to achieve [...] documented as of this encounter Care Teams Junk Removal Specialist Relationship Specialty Start Date End Date Milly Celaya, SUPERVISOR MOLD CLEANING AND STORAGE, RADIOLOGY TECH JamieA Salvador [facility] [address] PCP - General Obstetrics & Gynecology 05/23/18 Wilian Sultana MD Consulting Physician Neurology 08/11/16 06/24/24 Darnell Bryant MD [address] [facility], [place] [id number] Psychiatry 03/16/18 documented as of this encounter
--- OUTSIDE RECORDS SUMMARY | 2024-09-05 15:47 | XMS_ITS | Clinical Summary ---
Author Organization [facility] Medical Office Building [address] Address [address] [place] [address] Care Team Providers Care Nephrology Social Worker Name Role Phone Augustin Goodson MD Unavailable [phone] Leon Oneill MD Unavailable [phone] Rick Rivas MD Unavailable Wilian Sultana MD Unavailable [phone] Renetta Sarabia MD Unavailable [phone] Sara Vela MD Primary Care Provider Prudence Gaines MD Unavailable [phone] Allergies Active Allergy Reactions Criticality Noted Date Comments Hydromorphone Anaphylaxis High 01/21/2017 Hr dropped to 13 Lamotrigine Hives,Urticaria Medium 11/15/2016 Levofloxacin Anaphylaxis High 01/21/2017 Lisinopril Shortness of breath,Palpitations High 01/04/2019 Losartan Shortness of breath,Palpitations High 02/06/2019 Tried taking it in Spring 2018 Other Unknown 09/27/2016 IV DYE Paroxetine Hcl Swelling Medium 10/20/2016 Penicillins Rash Medium 09/27/2016 Prednisone Palpitations High 12/06/2018 Sulfa (Sulfonamide Antibiotics) Anaphylaxis,Rash High 04/05/2019 Sulfamethoxazole-Trimet hoprim Anaphylaxis High 03/16/2018 Medications aspirin 325 mg tablet take 1 tablet by oral route every day 0 0 4 Active ALPRAZolam (XANAX) 0.5 mg tablet take 1 tablet by oral route 3 times every day 0 0 7 Active ascorbic acid (VITAMIN C) 500 mg tablet,chewable Take 1 tablet/chew tab (500 mg total) by mouth daily Active HYDROcodone-acetami nophen (VICODIN) 10-300 mg per tablet every 6 hours 1 Active ondansetron ODT (ZOFRAN-ODT) 4 mg disintegrating tablet DISSOLVE 1 TABLET IN MOUTH EVERY 8 HOURS NEEDED FOR NAUSEA AND VOMITING 1 Active multivitamin with minerals tablet Take 1 tablet by mouth daily Active nitroglycerin (NITROSTAT) 0.4 mg SL tabletIndications:a cute episode of anginal pain Place 1 tablet (0.4 mg total) under the tongue every 5 (five) minutes as needed for chest pain 25 tablet 11 2 Active losartan (COZAAR) 25 mg tablet Take 1 tablet (25 mg total) by mouth daily 4 Active cyclobenzaprine (FLEXERIL) 5 mg tablet Take 1 tablet (5 mg total) by mouth as needed for muscle spasms 4 Active acyclovir (ZOVIRAX) 400 mg tablet Take 1 tablet (400 mg total) by mouth every 4 (four) hours while awake Active metoprolol XL (TOPROL-XL) 25 mg extended release tabletIndications:P alpitations Take 1 tablet by mouth twice daily 180 tablet 2 4 Active Active Problems Problem Noted Date Diagnosed Date Spell of generalized weakness 10/04/2022 History of anaphylaxis 10/05/2020 BMI 27.0-27.9,adult 03/22/2019 Panic disorder 05/05/2018 Colon, diverticulosis 03/31/2018 Allergic contact dermatitis due to adhesives Anxiety and depression 03/21/2018 Stage 3b chronic kidney disease 03/07/2018 Psoriatic arthritis 03/07/2018 HSV infection 03/07/2018 Hypogammaglobulinemia 01/21/2017 Dyspnea on exertion 08/30/2016 Overview (11/12/2016): LUNDBERG (dyspnea on exertion) Palpitations 08/30/2016 Overview (11/12/2016): Palpitations Premature atrial contraction 08/30/2016 Overview (11/12/2016): Atrial premature beats Essential hypertension 08/05/2015 Overview (11/12/2016): Essential hypertension Nonrheumatic aortic valve insufficiency 02/26/20 14 Overview (11/12/2016): Aortic insufficiency Mixed hyperlipidemia 11/09/2010 Overview (11/10/2016): PURE HYPERCHOLESTEROLEM Ventricular premature beats 11/09/2010 Overview (11/10/2016): PVCs Other chest pain 11/09/2010 Overview (11/11/2016): CHEST PAIN NOS Resolved Problems Problem Noted Date Diagnosed Date Resolved Date H/O food anaphylaxis 10/05/2020 021 Viral upper respiratory tract infection 10/04/2018 12/26/2018 Assessment & Plan (10/04/2018 9:33 PM PIZZA DELIVERY DRIVER): Rapid flu in office was negative as was strep. However symptoms were sudden in onset and very consistent with flu, which is prevalent in the area right now. I am going to treat her for influenza with Tamiflu as ordered. Discussed rest increase fluids supportive care at home and signs and symptoms for which to return or seek emergency care Cough 09/26/2018 12/26/2018 Encounters Date Type Department Care Team Description 08/31/2024 10:30 AM PIZZA DELIVERY DRIVER Therapy [facility] Physical Therapy [address] [place] [address] Advanced Medicine 6th [place] [address] [place] [address] Mimi Coelho DPT 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) 08/24/2024 11:30 AM PIZZA DELIVERY DRIVER Therapy [facility] Physical Therapy [address] [place] [address] 6th [place] [address] [place] [address] Mimi Coelho DPT 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, right (Primary Dx); Radial sensory nerve injury, right, subsequent encounter 08/10/2024 11:30 AM PIZZA DELIVERY DRIVER Therapy [facility] Physical [address] 6th [place] [address] [place] [address] Mimi Coelho DPT 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) 08/02/2024 Orders Only [facility] Surgery [address] [place] [address] 6th [place] [address] [place] [address] Telma Frost MD 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) 07/30/2024 11:30 AM PIZZA DELIVERY DRIVER Therapy [facility] Physical [address] [place] [address] [place] [address] Aaliyah Koenig DPT 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, right (Primary Dx); Radial sensory nerve injury, right, subsequent encounter 07/19/2024 10:15 AM PIZZA DELIVERY DRIVER Office Visit [facility] [address] [facility] [address] [place] [address] Chase Ace MD Nonrheumatic aortic valve insufficiency (Primary Dx); Ventricular premature beats; Mixed hyperlipidemia; Essential hypertension 07/17/2024 2:00 PM PIZZA DELIVERY DRIVER Therapy [address] [place] [address] [place] [address] Aaliyah Koenig DPT 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, right (Primary Dx) 07/10/2024 11:30 AM PIZZA DELIVERY DRIVER Therapy [facility] Physical [address] 6th [place] [address] [place] [address] Mimi Coelho DPT 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, right (Primary Dx); Radial sensory nerve injury, right, subsequent encounter 07/04/2024 1:00 PM PIZZA DELIVERY DRIVER Therapy [facility] Physical [address] 6th [place] [address] [place] [address] Aaliyah Koenig DPT 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, right (Primary Dx) 07/02/2024 Orders [place] [address] Unknown, Notinfile 06/29/2024 11:30 AM PIZZA DELIVERY DRIVER Therapy [facility] Physical Therapy [facility] [address] [place] [address] [place] [address] Mimi Coelho DPT 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, right (Primary Dx); Radial sensory nerve injury, right, subsequent encounter 06/22/2024 Telephone [facility] Physical Therapy [address] [place] [address] Aaliyah Koenig DPT return call 06/18/2024 11:30 AM PIZZA DELIVERY DRIVER Therapy [facility] Physical Therapy [address] [place] [address] [place] [address] Aaliyah Koenig DPT 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, right (Primary Dx); Radial sensory nerve injury, right, subsequent encounter 06/16/2024 Plan of Care Documentation [facility] Physical Therapy [facility] [address] [place] [address] 06/15/2024 11:30 AM PIZZA DELIVERY DRIVER Therapy [facility] Physical [place] [address] [place] [address] Mimi Coelho, AVELINO 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 Hx Other Medical [place] Anxiety disorder Anxiety Hx Other Medical Back Injury Arthritis Cataract Depression Migraines Hypertension Thyroid disease Ear problems Heart disease Chronic kidney disease Neuromuscular disorder (HCC) Family History Medical History Relation Name Comments Brain cancer Father Brain tumor; Ca use of : Brain tumor Alcohol abuse Mother Erin Breast cancer Mother Erin Cancer, breast ; Cause of : Cancer, breast COPD Mother Erin Cancer Mother Erin Depression Mother Erin Hypertension Mother Erin Kidney disease Mother Erin Memory loss Mother Erin Mental illness Mother Erin Miscarriages / Stillbirths Mother Erin Alzheimer's disease Mother's Sister Casa Leukemia Sister 2 Leukemia; Cause of : Leukemia Relation Name Status Comments Father (Age 71) Mother Erin (Age 78) Mother's Sister Casa Sister 1 (Age 8) Sister 2 Social History Tobacco Use Types Packs/Day Years Used Date Smoking Tobacco: Never Cigarettes Smokeless Tobacco: Never Tobacco Cessation:Counseling Given: Not Answered Alcohol Use Standard Drinks/Week Comments No 0 (1 standard drink = 0.6 oz pur e alcohol) PHQ-2 Answer Date Recorded PHQ-2 Score 0 03/30/2019 Comments Unknown Sex and Gender Information Value Date Recorded Sex Assigned at Not on file Legal Sex Female 7:06 AM PIZZA DELIVERY DRIVER Gender Identity Female 06/12/2021 1:30 PM CDT Sexual Orientation Not on file Obstetrics History Last Filed Vital Signs Vital Sign Reading Time Taken Comments Blood Pressure 104/60 07/19/2024 10:29 AM PIZZA DELIVERY DRIVER Pulse 70 07/19/2024 10:29 AM PIZZA DELIVERY DRIVER Temperature 37.2 ??C (98.9 ??F) 03/22/2019 1:09 PM CD T Respiratory Rate 18 03/22/2019 1:09 PM CDT Oxygen Saturation 97% 07/19/2024 10:29 AM PIZZA DELIVERY DRIVER Inhaled Oxygen Concentration - - Weight 70.8 kg (156 lb) 07/19/2024 10:29 AM PIZZA DELIVERY DRIVER Height 157.5 cm (5' 2 ) 07/19/2024 10:29 AM PIZZA DELIVERY DRIVER Body Mass Index 28.53 07/19/2024 10:29 AM PIZZA DELIVERY DRIVER Plan of Treatment Health Maintenance Due Date Last Done Comments Hepatitis C Screening 1950 DTaP/Tdap/Td Vaccine (1 - Tdap) 1959 Hepatitis B Screening 1966 Zoster Vaccine (1 of 2) 1967 Osteoporosis Screening-Bone Density Scan 12/20/2010 12/20/2008 Well Visit 65+ 12/27/2019 12/26/2018, 09/21/2018 Depression Screening 03/22/2020 03/22/2019, 12/26/2018, 12/26/2018, Additional history exists Fall Risk Assessment 03/22/2020 03/22/2019, 12/26/2018, 11/29/2018, Additional history exists Colon Cancer Screening-Colonoscopy 03/19/2023 03/19/2013 Influenza Vaccine (#1) 2024 05/22/2020 Colon Cancer Screening-CT Colonography Discontinued 03/19/2013 Colon Cancer Screening-DNA Stool Discontinued 03/19/20 13 Colon Cancer Screening-FIT Discontinued 03/19/2013 Colon Cancer Screening-Sigmoidoscopy Discontinued 03/19/2013 Breast Cancer Screening-Mammogram Discontinued 019, 12/02/2017 Procedures Procedure Name Priority Date/Time Associated Diagnosis Comments SURGICAL PATHOLOGY Routine 07/02/2024 4: 10 PM PIZZA DELIVERY DRIVER MAMMOGRAPHY Routine 12/06/2018 COLONOSCOPY Routine 03/19/2013 8:29 AM CDT DEXA SCAN Routine 12/20/2008 from Last 3 Months or Most Recently Relevant to Health Maintenance Results * Surgical pathology (07/02/2024 4:10 PM PIZZA DELIVERY DRIVER) Skin, shave biopsy 07/02/2024 4:10 PM PIZZA DELIVERY DRIVER 07/04/2024 7:03 AM PIZZA DELIVERY DRIVER Narrative 07/09/2024 1:48 PM PIZZA DELIVERY DRIVER [facility] results best viewed via link to PDF [facility] [address] [place] [address] T[address] ??[address] [place] [address] ? [email or web address] Note to Patients: ??This report may contain a detailed description of human tissue sent by a health care provider to the laboratory for pathologic evaluation. ??The content of this report is essential for diagnosis and may provide important critical findings. ??This information may be unfamiliar to patients to review without a medical professional present. ?? It is advised that the patient review this report in the presence of a health care provider who can answer questions and explain the details. FINAL REPORT Patient Information: PATIENT NAME: ??JEANINE ESPINOSA ? SEX: ??F ? : ??1950 (Age: 73) ? Specimen Information: COLLECTED: ??07/02/2024 ? RECEIVED: ??07/04/2024 ? REPORTED: ??07/09/2024 ? Submitting Physician Information: Pilar Renner, [facility], [address] [place] [address] ??[id number], ? DERMATOPATHOLOGY REPORT RESULTS ?? DIAGNOSIS: SKIN, RIGHT MEDIAL MALAR CHEEK, SHAVE BIOPSY: ? SOLAR ELASTOSIS, TELANGIECTASES AND CHRONIC INFLAMMATION ? Note: There is no evidence of a neoplasm in these sections. barbara/lac By this signature, I attest that the above diagnosis is based upon my personal examination of the slides(and/or other material indicated in the diagnosis). Aaliyah Ha M.D. ?? Report Electronically Reviewed and Signed Out By ??Aaliyah Ha M.D. 07/09/2024 13:48:33 CLINICAL INFORMATION NEOPLASM OF UNCERTAIN BEHAVIOR VS IRRITATED SK VS BCC SPECIMEN DATA MICROSCOPIC DESCRIPTION: There is abundant, blue elastotic material, dilated vessels and chronic inflammation within the upper part of the dermis. ?? (L57.8, ??R23.8) GROSS DESCRIPTION: Received in a formalin-containing bottle is a superficial fragment of pale damon, variegated, semi-translucent skin measuring 1.0 by 0.7 by 0.2 cm. The surgical margin is inked blue.The specimen bears a centrally located, slightly raised, pink-damon, scaly area measuring 0.3 by 0.3x cm. The specimen is sectioned into 3 pieces and submitted entirely in a single cassette. Due to shrinkage, measurements may be different than those at the time of procedure. dh/mxf Clerical Data A; [id number] The characteristics of special, immunohistochemical, and immunofluorescence stains and in-situ hybridization tests performed by the [facility] were deemed acceptable in ongoing quality assurance supervisor chassis measures and in compliance with regulations drawn from the Clinical Laboratory Improvement Act bt2165 (CLIA '88). Control reactions for all stains performed were deemed adequate and appropriate by a pathologist prior to evaluation of patient tissue. Some diagnoses were rendered with the assistance of laboratory-developed tests utilizing analyte-specific reagents; the performance characteristic of these tests were determined by [facility] and are not cleared or approved by the [place] Food an Drug administration. Laboratory developed test may only be performed in a facility that is certified by the [facility] as a high-complexity laboratory under CLIA '88. These tests are used for clinical purposes and are not investigational. Notinfile Unknown LAB PATHOLOGY ORDERABLES Final Result * MAMMOGRAPHY (12/06/2018) Mammogram Normal Historical Provider HEALTH MAINTENANCE Final Result * COLONOSCOPY (03/19/2013 8:29 AM CDT) Pathologist [facility] Colonoscopy Normal Result [facility] Historical Provider HEALTH MAINTENANCE Final Result * DEXA SCAN (12/20/2008) Pathologist [facility] DEXA Scan Unknown Historical Provider HEALTH MAINTENANCE Final Result from Last 3 Months or Most Recently Relevant to Health Maintenance Insurance [facility] [employer] OPEN ACCESS [employer] OPEN ACCESS Care Teams Nephrology Social Worker Relationship Specialty Start Date End Date Sara Vela MD [address] [facility] [place] [address] [place] [address] PCP - General Family Practice 02/27/24 Augustin Goodson MD Referring Physician Nephrology 03/07/18 Leon Oneill MD [address] [facility] [address] [place] [address] Referring Physician Hematology 03/07/18 Rick Rivas MD [address] [facility] [address] [place] [address] Referring Physician Rheumatology 03/07/18 Wilian Sultana MD [address] [facility] 3 [place] [address] Referring Physician Neurology 03/07/18 Renetta Sarabia MD [address] [facility] [place] [address] [place] [address] Referring Physician Family Practice 12/27/19 Prudence Gaines MD [address] [facility] [address] [place], [place] [id number] Referring Physician Plastic Surgery 04/05/24
--- OUTSIDE RECORDS SUMMARY | 2024-09-05 15:47 | XMS_ITS | Encounter Summary ---
Author Organization [facility] Address [address] [facility] [place] [address] Phone Care Team Providers Care Oracle Database Developer Name Role Phone Wilian Sultana MD Unavailable Darnell Bryant MD Unavailable Milly Celaya APRN, PAN WASHER Primary Care Provider Unavailable Encounter Details Date Type Department Care Team (Late st Contact Info) Description 02/02/2023 Behavioral Health Patient Survey [facility] [address] [place] [address] Justyn Miranda, [facility] [address] [place] [address] Social History Tobacco Use Types Packs/Day Years [...] on file Sexual Orientation Not on file COVID-19 Exposure Response Date Recorded In the last 10 days, have yo u been in contact with someone who was confirmed or suspected to have Coronavirus/COVID-19? No / Unsure 02/02/2023 4:32 PM CDT documented as of this encounter Plan of Treatment Upcoming Encounters Date Type Department Care Team (Late st Contact Info) Description 09/19/2024 9:30 AM SHIFT LEADER Telemedicine [facility] [address] [place] [address] Justyn Miranda LCSW [address] [place] [address] Discharge Disposition: Discharged to home or Selfcare documented as of this encounter Goals Goal Patient Goal Type Associated Problems Recent Progress Patient-Stated? Author I need to be able to cope better with my grief and bitterness towards my family within the next six months Behavioral Health On track(2024 9:24 AM SHIFT LEADER) Yes Justyn Miranda LCSW Note: Goal Reviewed today with: patient Readiness to change: Ready to change Department associated with goal: [facility] Steps to achieve goal: Patient to be counseled on coping with grief, during her 45 min individual therapy sessions, 2-3 times per month Patient to be counseled on aspects of healthy self-care, during her 45 min individual sessions, 2-3 times per month Behavioral Health Behavioral Health On track(2024 9:24 AM SHIFT LEADER) No Justyn Miranda LCSW Note: Goal: Patient will be able to report improved mood/coping ability for family stressors/discord, to an acceptable level within the next six months Goal Reviewed today with: patient Readiness to change: Ready to change Department associated with goal: [facility] Steps to achieve [...] documented as of this encounter Care Teams Oracle Database Developer Relationship Specialty Start Date End Date Milly Celaya, CRTS, PAN WASHER [address] [place] [address] PCP - General Obstetrics & Gynecology 05/23/18 Wilian Sultana MD Consulting Physician Neurology 08/11/16 06/24/24 Darnell Bryant MD [place] [address] [place] [address] Psychiatry 03/16/18 documented as of this encounter
--- OUTSIDE RECORDS SUMMARY | 2024-09-05 15:47 | XMS_ITS | Clinical Summary ---
Author Organization [facility] ut[facility]ylie Address [address] [place] [phone] Phone Care Team Providers Care Belt Repairer Name Role Phone Sara Vela MD Primary Care Provider Allergies Active Allergy Reactions Criticality Noted Date Comments Amitriptyline Other (see comments) 08/31/2021 [place] drugged up a lot and felt strange when on amitriptyline for migraines Hydromorphone 06/03/2014 Hydromorphone Hcl 04/05/2019 Iodine Anaphylaxis High 01/21/2017 Lamotrigine Hives Medium 11/15/2016 Other reaction(s): Urticaria Levofloxacin Anaphylaxis High 04/05/2019 Lisinopril Palpitations,Shortne ss of breath High 01/04/2019 Losartan Palpitations,Shortne ss of breath High 02/06/2019 Tried taking it in Spring 2018 Paroxetine Hcl Swelling Medium 10/20/2016 Penicillins Rash Medium 09/27/2016 Other reaction(s): Unknown Prednisone Palpitations High 12/06/2018 Sulfa Antibiotics Rash,Anaphylaxis High 04/05/2019 Wound Dressing Adhesive Other (see comments),Rash High 08/31/2021 Says the EKG leads being left on her skin caused 3rd degree nova of the skin. Medications Medication Sig Dispensed Refills Start Date End Date Status HYDROcodone-acetamin ophen (NORCO) 5-325 MG per tablet 1 prn 0 05/23/2017 Active metoprolol succinate XL (TOPROL-XL) 25 MG 24 hr tablet 1 daily 0 05/23/2017 Active valACYclovir (VALTREX) 500 MG tablet 1 prn 0 05/23/2017 Active [place]-3 1000 MG capsule Take 1 capsule by mouth daily Active nitroglycerin (NITROSTAT) 0.[address] 0.4 mg under the tongue 09/29/2018 Active cetirizine (ZyrTEC) 10 MG tablet Take 10 mg by mouth Act sarina ALPRAZolam (XANAX) 0.5 MG tablet 0.5 mg 08/30/2016 Active cyclobenzaprine (FLEXERIL) 5 MG tablet 5 mg 11/09/2010 Active aspirin 325 MG tablet 325 mg 02/25/2014 Active triamcinolone (KENALOG) 0.1 % cream Apply 30 g topically 2 times daily 09/21/2018 Active Cholecalciferol (VITAMIN D3) 1000 units capsule Take by mouth Active Multiple Vitamins-Minerals (PX COMPLETE SENIOR MULTIVITS) tablet Take 1 tablet by mouth Active methotrexate 2.5 MG tablet Take 12.5 mg by mouth per week Follow directions carefully, and ask to explain any part you do not understand. Take exactly as directed. Active Eliquis 2.5 MG tablet 02/05/2021 Active escitalopram (LEXAPRO) 20 MG tablet TAKE 1 & 1/2 (ONE & ONE-HALF) TABLETS BY MOUTH ONCE DAILY 08/03/2021 Active SUMAtriptan (IMITREX) 50 MG tablet TAKE 1 TABLET AT ONSET OF HEADACHE, IF NO RELIEF MAY REPEAT 1 TABLET AFTER AT LEAST 2 HOURS (MAX 4 TABLETS IN 24 HOUR) 08/19/2021 Active Vitamins-Lipotropics (B-100 Complex) tablet B-100 COMPLEX ORAL TABLET 08/07/1969 Active valACYclovir (VALTREX) 1 g tablet TAKE 1 TABLET BY MOUTH EVERY 8 HOURS FOR 7 DAYS FOR HERPES FLARE UP 07/08/2021 Active nystatin (MYCOSTATIN) 206703 UNIT/ML suspension ADMININSTER (5ML) EVERY 6 HOURS 1/2 OF DOSE IN EACH SIDE OF THE MOUTH. 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 Gout 09/26/2017 Hyperlipidemia 09/26/2017 Stage 3b chronic kidney disease 02/14/2017 Nonfamilial hypogammaglobulinemia 02/14/2017 Other specified disorder of bone 02/14/2017 Essential hypertension 08/05/2015 Overview (04/05/2019): Essential hypertension Ventricular premature beats 11/09/2010 Overview (04/05/2019): PVCs Resolved Problems Problem Noted Date Diagnosed Date Resolved Date Elevated blood-pressure read ing without diagnosis of hypertension 02/14/2017 12/05/2020 Immunizations Name Administration Dates Next Due Influenza Injectable Mdck Quadrivalent Preservat sarina 05/22/2020 Pneumococcal Conjugate 09/08/2020 Pneumococcal Conjugate 13-Valent 07/17/2020 Family History Medical History Relation Comments Malignant neoplastic disease Father Malignant neoplastic disease Mother Kidney disease Neg Hx Relation Status Comments Father Mother Social History Tobacco Use Types Packs/Day Years Used Date Smoking Tobacco: Never Smokeless Tobacco: Never Alcohol Use Standard Drinks/Week Comments Not Currently 0 (1 standard drink = 0.6 oz pur e alcohol) Sex and Gender Information Value Date Recorded Sex Assigned at Not on file Gender Identity Not on file Sexual Orientation Not on file Last Filed Vital Signs Vital Sign Reading Time Taken Comments Blood Pressure 124/70 03/08/2022 1:16 PM CDT Pulse 84 03/08/2022 1:16 PM CDT Temperature 36.4 ??C (97.5 ??F) 03/08/2022 1:16 PM CD T Respiratory Rate - - Oxygen Saturation - - Inhaled Oxygen Concentration - - Weight 78 kg (172 lb) 03/08/2022 1:16 PM CDT Height 157.5 cm (5' 2 ) 03/08/2022 1:16 PM CDT Body Mass Index 31.46 03/08/2022 1:16 PM CDT Plan of Treatment Health Maintenance Due Date Last Done Comments Pneumococcal PPSV23/PCV13 65 + Years / High and Highest Risk (2 of 4 - PPSV23 or PCV20) 09/11/2020 07/17/2020 Influenza Vaccine (#1) 2024 05/22/2020 Care Teams Belt Repairer Relationship Specialty Start Date End Date Sara Vela MD [address] [place] [address] PCP - General Internal Medicine 08/24/21
--- OUTSIDE RECORDS SUMMARY | 2024-09-05 15:47 | XMS_ITS | Clinical Summary ---
Author Organization [facility] Address [address] [place] [address] Care Team Providers Care Platform Inspector Name Role Phone Renetta Sarabia MD Primary Care Provider Allergies Active Allergy Reactions Criticality Noted Date Comments Dye Rash High 09/27/2016 Hydromorphone Anaphylaxis High 01/21/2017 Hr dropped to 13 Hydromorphone (Bulk) Anaphylaxis High 01/21/2017 Hr dropped to 13 Iodinated Contrast Media Anaphylaxis High 01/21/2017 Iodine Anaphylaxis High 01/21/2017 Lamotrigine Hives,Rash High 11/15/2016 Levofloxacin Anaphylaxis High 01/21/2017 Lisinopril Palpitations,Shortne ss of Breath/Wheezing High 01/04/2019 Losartan Palpitations,Shortne ss of Breath/Wheezing High 02/06/2019 Tried taking it in Spring 2018 Paroxetine Swelling Medium 10/20/2016 Paroxetine Hcl Swelling High 10/20/2016 Penicillins Rash High 09/27/2016 Other reaction(s): Unknown Prednisolone Palpitations High 12/21/2019 Prednisone Palpitations High 12/06/2018 Sulfa (Sulfonamide Antibiotics) Rash,Anaphylaxis High 04/05/2019 Sulfamethoxazole-Trimet hoprim Anaphylaxis High 03/16/2018 Medications metoprolol tartrate (LOPRESSOR) 25 mg tablet Take 25 mg by mouth daily. Active ALPRAZolam (XANAX) 0.5 mg tablet Take 0.5 mg by mouth 3 times daily as needed for Anxiety. Active HYDROcodone-acetam inophen (NORCO) 7.5-325 mg Tablet Take 1 Tablet by mouth every 4 hours as needed for Pain, Moderate. Active multivitamin (DAILY-ROSA) tablet Take 1 Tablet by mouth daily. Active ascorbic acid, vitamin C, (VITAMIN C) 500 mg tablet Take 500 mg by mouth daily. Active coenzyme Q10 200 mg Capsule Take 200 mg by mouth daily. Active nitroglycerin (NITROSTAT) 0.4 mg Tablet, Sublingual Place 0.4 mg under tongue Continuous as needed. 09/29/19 19 Active [place]-3 Fatty Acids 1,000 mg Capsule Take 1 Capsule by mouth daily. Active valACYclovir (VALTREX) 500 mg tablet Take 500 mg by mouth 1 time daily as needed. 05/23/20 17 Active triamcinolone acetonide (KENALOG) 0.1 % Cream Apply 30 Grams to affected area. 09/21/19 19 Active metoprolol succinate (TOPROL XL) 25 mg Extended Release 24 hour tablet TAKE 1 TABLET BY MOUTH ONCE DAILY 3 04/09/20 19 Active cyclobenzaprine (FLEXERIL) 5 mg Tablet 5 mg. 11/10/19 11 Active cetirizine (ZyrTEC) 10 mg tablet Take 10 mg by mouth. Active aspirin (JACKELINE) 325 mg tablet every 24 hours. 09/08/19 16 Active multivitamins-mine rals-lutein (Multivitamin 50 Plus) Tablet Take 1 Tablet by mouth. Active naloxone (NARCAN) 4 mg/spray [place], Non-Aerosol EMERGENCY USE ONLY: Administer 1 spray (4 mg) in one nostril one time. May repeat in alternating nostrils every 2-3 min until responsive or EMS arrives. 2 Each 3 12/21/19 20 Active prochlorperazine maleate (COMPAZINE) 10 mg tabletIndications: Nausea and vomiting, intractability of vomiting not specified, unspecified vomiting type Take 1 Tablet (10 mg) by mouth every 6 hours as needed for Nausea/Emesis. 90 Tablet 3 12/21/19 20 Active aspirin (JACKELINE) 325 mg tablet aspirin 08/21/19 21 Active escitalopram oxalate (LEXAPRO) 20 mg tablet 06/24/20 21 Active amitriptyline (ELAVIL) 25 mg tablet Take 25 mg by mouth. 08/19/19 22 Active losartan (COZAAR) 25 mg tablet Take 25 mg by mouth daily. 07/02/20 23 Active Active Problems Problem Noted Date Diagnosed Date Hypogammaglobulinemia 01/21/2017 tobacco smoke expo sure (20wks gestation-4wks post ) 01/21/2017 Encounters Date Type Department Care Team Description 09/04/2024 External Device Data [facility] Provider, Abstract 08/29/2024 External Device Data [facility] Provider, Abstract 08/29/2024 External Device Data [facility] Provider, Abstract 07/20/2024 Orders Only [facility] Oncology and Hematology - [place] [address] [place] [address] Leon Oneill MD 07/19/2024 3:30 PM [employer] Office Visit [facility]ology - [place] [address] [place] [address] Leon Oneill MD Hypogammaglobulinemia (Primary Dx) 07/17/2024 Orders Only [facility]ematology - [place] [address] [place] [address] Leon Oneill MD 07/13/2024 Orders Only [facility]ology - [place] [address] [place] [address] Leon Oneill MD 07/11/2024 Abstract [facility]ology - [place] [address] [place] [address] Leon Oneill MD 06/06/2024 External Device Data [facility] Provider, Abstract from Last 3 Months Family History Medical History Relation Name Comments Cancer Father Cancer Mother Diabetes Mother Heart Disease Mother Relation Name Status Comments Father Mother Sister Alive Social History Tobacco Use Types Packs/Day Years Used Date Smoking Tobacco: Never Cigarettes Passive Smoke Exposure: Yes Tobacco Cessation:Counseling Given: Not Answered Alcohol Use [...] Sign Reading Time Taken Comments Blood Pressure 121/77 07/19/2024 3:24 PM [employer] Pulse 75 07/19/2024 3:24 PM [employer] Temperature 36.1 ??C (97 ??F) 07/19/2024 3:24 PM [employer] Respiratory Rate 16 07/19/2024 3:24 PM [employer] Oxygen Saturation 96% 07/19/2024 3:24 PM [employer] Inhaled Oxygen Concentration - - Weight 70.8 kg (156 lb) 07/19/2024 3:24 PM [employer] Height 167.6 cm (5' 6 ) 07/08/2021 9:25 AM [employer] Body Mass Index 25.18 07/08/2021 9:25 AM [employer] Plan of Treatment Upcoming Encounters Date Type Department Care Team (Late st Contact Info) Description 07/22/2025 1:00 PM [employer] Office Visit [facility] On[facility] H[facility]ology [facility] [address] [facility] [address] [place] [address] Leon Oneill MD [address] [facility] [address] [place] [address] Health Maintenance Due Date Last Done Comments DTAP/TDAP/TD VACCINES (1 - Tdap) 1967 ZOSTER VACCINE (1 of 2) 1967 COLORECTAL SCREENING 1993 Colorectal Cancer Screening 1993 FIT-DNA Q 3 years 1993 FIT/FOBT Q 1 year 1993 Flex Sig/CT Colonography Q 5 years 1993 PNEUMOCOCCAL VACCINE 65+ YEA RS (2 of 2 - PPSV23) 11/03/2020 09/08/2020, 07/17/2020 RSV VACCINE (60+ or ) (1 - 1-dose 75+ series) 2023 INFLUENZA VACCINE (#1) 2024 05/22/2020 Preventative Visit- Commercial 08/08/2024 OSTEOPOROSIS SCREENING Completed 11/18/2016 Procedures Procedure Name Priority Date/Time Associated Diagnosis Comments PROTEIN ELECTROPHORESIS, CSF Routine 07/19/2024 1:55 PM [employer] KAPPA/LAMBDA LIGHT CHAINS Routine 2023 2:33 PM [employer] COMPREHENSIVE METABOLIC PANEL Routine 07/11/2024 1:11 PM [employer] CBC WITH DIFFERENTIAL Routine 07/11/2024 11:32 AM [employer] from Last 3 Months Results * PROTEIN ELECTROPHORESIS, CSF (07/19/2024 1:55 PM [employer]) Cerebrospinal fluid CEREBROSPINAL FLUID / Unknown us Leon Oneill MD BODY FLUIDS AND STOOLS Final Re sult * KAPPA/LAMBDA, FREE LIGHT CHAINS (07/11/2024 2:33 PM [employer]) Blood us Leon Oneill MD CHEMISTRY ORDERABLES Final Resu lt * COMPREHENSIVE METABOLIC PANEL (07/11/2024 1:11 PM [employer]) Blood us Leon Oneill MD CHEMISTRY ORDERABLES Final Resu lt * CBC WITH DIFFERENTIAL (07/11/2024 11:32 AM [employer]) Blood us Leon Oneill MD HEMATOLOGY ORDERABLES Final Res ult from Last 3 Months Insurance [employer] O [facility] [place] PPO [employer] PPO [employer] [place] PPO Care Teams Platform Inspector Relationship Specialty Start Date End Date Renetta Sarabia MD PCP - General Family Practice 12/21/19
--- OUTSIDE RECORDS SUMMARY | 2024-09-05 15:47 | XMS_ITS | Encounter Summary ---
Author Organization [facility] Address [address] [facility] [place] [address] Phone Care Team Providers Care Shaving Machine Operator Name Role Phone Wilian Sultana MD Unavailable [phone] Darnell Bryant MD Unavailable Milly Celaya APRN, ASSOCIATE PROFESSOR OF COMMUNICATION Primary Care Provider Unavailable Encounter Details Date Type Department Care Team (Late st Contact Info) Description 05/25/2023 Behavioral Health Patient Survey [facility] [address] [place] [address] Justyn Miranda, [facility] [address] [place] [address] Social History Tobacco Use Types Packs/Day Years [...] suspected to have Coronavirus/COVID-19? No / Unsure 05/25/2023 4:46 PM CDT documented as of this encounter Plan of Treatment Upcoming Encounters Date Type Department Care Team (Late st Contact Info) Description 09/19/2024 9:30 AM INSPECTOR AND UNLOADER Telemedicine [facility] [address] [place] [address] Justyn Miranda LCSW [address] [place] [address] Discharge Disposition: Discharged to home or Selfcare documented as of this encounter Goals Goal Patient Goal Type Associated Problems Recent Progress Patient-Stated? Author I need to be able to cope better with my grief and bitterness towards my family within the next six months Behavioral Health On track(2024 9:24 AM INSPECTOR AND UNLOADER) Yes Justyn Miranda LCSW Note: Goal Reviewed today with: patient Readiness to change: Ready to change Department associated with goal: [facility] Steps to achieve goal: Patient to be counseled on coping with grief, during her 45 min individual therapy sessions, 2-3 times per month Patient to be counseled on aspects of healthy self-care, during her 45 min individual sessions, 2-3 times per month Behavioral Health Behavioral Health On track(2024 9:24 AM INSPECTOR AND UNLOADER) No Justyn Miranda LCSW Note: Goal: Patient will be able to report improved mood/coping ability for family stressors/discord, to an acceptable level within the next six months Goal Reviewed today with: patient Readiness to change: Ready to change Department associated with goal: [facility] Steps to [...] documented as of this encounter Care Teams Shaving Machine Operator Relationship Specialty Start Date End Date Milly Celaya, HOG SCALDER, ASSOCIATE PROFESSOR OF COMMUNICATION [address] [place] [address] PCP - General Obstetrics & Gynecology 05/23/18 Wilian Sultana MD Consulting Physician Neurology 08/11/16 06/24/24 Darnell Bryant MD [place] [address] [place] [address] Psychiatry 03/16/18 documented as of this encounter
--- OUTSIDE RECORDS SUMMARY | 2024-09-05 15:47 | XMS_ITS | CONTINUITY OF CARE DOCUMENT ---
Author Name dinorah copeland Address Unknown Organization [facility] Address [address] [address] [place] [address] Phone [phone] Care Team Providers Care Tow Feeder Name Role Phone Gregorio Parra MD Unavailable JAIME SOARES MD Unavailable JAIME SOARES MD Unavailable [phone] PROBLEMS Condition Status Date Provider Notes BACK PAIN, CHRONIC, HX OF active Rory Chance ABNORMAL ELECTROCARDIOGRAM active Rory Chance CAD active Rory Chance FAMILY HX CARDIOVASCULAR DISEASE active Kenney etanastasiya Chance APC'S active Rory Chance PVC'S active Rory Chance TONSILLECTOMY, HX OF active Rory Chance SYMPTOM, SYNCOPE AND COLLAPSE active Torres Chance BIPOLAR AFFECTIVE DISORDER active Rory Chance ANXIETY active Rory Chance HYSTERECTOMY, HX OF active Rory Chance PALPITATIONS active Rory Chance MITRAL VALVE PROLAPSE, HX OF active Damari Leggett IRREGULAR HEART RATE active Rory Chance ENCOUNTERS Date Type Provider Location Encounter Diagnosis - In-person encounter Office Visit Gregorio Parra MD [facility] VITAL SIGNS Date Observation Value Provider blood pressure, diastolic, left arm 81 mm [Hg] Kailyn Partida MA blood pressure, systolic, left arm 139 mm [Hg] Kailyn Partida MA blood pressure, diastolic, right arm 81 m m[Hg] Kailyn Partida MA blood pressure, systolic, right arm 137 m m[Hg] Kailyn Partida MA pulse rate 77 /min Kailyn Partida MA oxygen saturation, oximetry 98 % Kailyn Partida MA respiratory rate E&M 20 /min Kailyn Partida MA weight E&M 139.5 [lb_av] Kailyn britt MA ALLERGIES Allergy Name Onset Date Reaction Criticality Status IVP DYE High Criticality active RESULTS Date Observation Value Provider Reference Range Interpretation Location 1 calcium, serum 10.1 mg/dL [facility] 1 blood glucose, fasting 122 mg/dL [facility] 1 creatinine, serum 1.28 mg/dL [facility] 1 urea nitrogen, blood 16 mg/dL [facility] 1 carbon dioxide, serum, total 26.3 mmol/L [facility] 1 chloride, serum 107 mmol/L [facility] 1 potassium, serum 4.1 mmol/L [facility] 1 sodium, serum 141 mmol/L [facility] HISTORY OF MEDICATION USE Medication Status Instructions Dates Provider Indications Com ments NAIN-E CAPSULE active 1000mg 1-3 daily Yamilex Partida MA OSCAL 500/200 D-3 TABLET active once daily or prn Kailyn britt MA B-100 COMPLEX ORAL TABLET active 50mg once daily Kailyn Partida MA ROYAL JELLY 500 MG ORAL CAPSULE active once daily Kailyn Partida MA FLAXSEED OIL CAPSULE active 1000mg once daily Kailyn britt MA COQ-10 CAPS active 100mg once daily Kailyn Partida MA VALTREX 1 GM ORAL TABLET active once daily Kailyn Partida MA PREVACID 30 MG ORAL CAPSULE DELAYED RELEASE active ONE TAB. DAILY prn Kailyn dang MA ASPIRIN 81 MG ORAL TABLET active ONE TAB. DAILY Rory Chance METOPROLOL SUCCINATE ER 25 MG ORAL TABLET EXTENDED RELEASE 24 HOUR active 1/2 TAB every other night Kailyn Partida MA LITHIUM CARBONATE 300 MG ORAL TABLET active 1 1/2 once daily Kailyn Partida MA SOCIAL HISTORY Date Observation Value Provider social history E&M Marital Statu s: L jessi with family/friends E thnicity: Gregorio Parra MD drug use none Gregorio Gilman social history reviewed E&M reviewed Gregorio Parra MD physical exercise, f requency, days per week yes [employer] caffeine use, averag e drinks per day yes [employer] alcohol use, average drinks per day none [employer] smoking status Non-smoker [employer] MENTAL STATUS Date Observation Value Provider assessment of judgme nt and insight E&M Alert and oriented to time, place and person. Mood and affect are normal. Gregorio Parra MD INSURANCE PROVIDERS Payer name Policy type / Coverage type [place] [employer] party ID [place] MED[employer] Medicare [id number] TREATMENT PLAN Date Name Performer FU test results room 3/ READY TO SIGN: H er updated medication list for this problem includes: Metoprolol Succinate 25 Mg Tb24 (Metoprolol succinate) ..... 1/2 tab every other night Aspirin 81 Mg Tabs (Aspirin) ..... One tab. daily N uclear Stress Findings: EF 55%. Normal left ventricular systolic function. Normal perfusion scan. (01/23/2008) E cho: The left ventricular chamber size is normal. Normal left ventricular wall thicknessLV EF is estimated a t 60% There is E: A reversal of mitral inflow velocities consistent with diastolic dysfunction. T here is moderate aortic valve regurgitation. The aortic valve appears structurally normal. (01/23/2008) Gregorio Parra MD FU test results room 3/ READY TO SIGN: H er updated medication list for this problem includes: Metoprolol Succinate 25 Mg Tb24 (Metoprolol succinate) ..... 1/2 tab every other night Aspirin 81 Mg Tabs (Aspirin) ..... One tab. daily N uclear Stress Findings: EF 55%. Normal left ventricular systolic function. Normal perfusion scan. (01/23/2008) E cho: The left ventricular chamber size is normal. Normal left ventricular wall thicknessLV EF is estimated a t 60% There is E: A reversal of mitral inflow velocities consistent with diastolic dysfunction. T here is moderate aortic valve regurgitation. The aortic valve appears structurally normal. (01/23/2008) Gregorio Parra MD FU test results room 3/ READY TO SIGN: H er updated medication list for this problem includes: Metoprolol Succinate 25 Mg Tb24 (Metoprolol succinate) ..... 1/2 tab every other night Aspirin 81 Mg Tabs (Aspirin) ..... One tab. daily N uclear Stress Findings: EF 55%. Normal left ventricular systolic function. Normal perfusion scan. (01/23/2008) E cho: The left ventricular chamber size is normal. Normal left ventricular wall thicknessLV EF is estimated a t 60% There is E: A reversal of mitral inflow velocities consistent with diastolic dysfunction. T here is moderate aortic valve regurgitation. The aortic valve appears structurally normal. (01/23/2008) Gregorio Parra MD
--- OUTSIDE RECORDS SUMMARY | 2024-09-05 15:47 | XMS_ITS | Encounter Summary ---
Author Organization [facility] Address [address] [facility] [place] [address] Phone Care Team Providers Care Armature And Rotor Winder Name Role Phone Wilian Sultana MD Unavailable Darnell Bryant MD Unavailable Milly Celaya APRN, QUALITY SYSTEMS SPECIALIST Primary Care Provider Unavailable Encounter Details Date Type Department Care Team (Late st Contact Info) Description 03/11/2023 Behavioral Health Patient Survey [facility] 1 [place] [address] Justyn Miranda, [facility] [address] [place] [address] Social History Tobacco Use Types Packs/Day Years [...] suspected to have Coronavirus/COVID-19? No / Unsure 03/11/2023 10:09 AM CDT documented as of this encounter Plan of Treatment Upcoming Encounters Date Type Department Care Team (Late st Contact Info) Description 09/19/2024 9:30 AM CONTINUITY MANAGER Telemedicine [facility] Behavioral Health Services [address] [place] [address] Justyn Miranda LCSW [address] [place] [address] Discharge Disposition: Discharged to home or Selfcare documented as of this encounter Goals Goal Patient Goal Type Associated Problems Recent Progress Patient-Stated? Author I need to be able to cope better with my grief and bitterness towards my family within the next six months Behavioral Health On track(2024 9:24 AM CONTINUITY MANAGER) Yes Justyn Miranda LCSW Note: Goal Reviewed today with: patient Readiness to change: Ready to change Department associated with goal: [facility] Steps to achieve goal: Patient to be counseled on coping with grief, during her 45 min individual therapy sessions, 2-3 times per month Patient to be counseled on aspects of healthy self-care, during her 45 min individual sessions, 2-3 times per month Behavioral Health Behavioral Health On track(2024 9:24 AM CONTINUITY MANAGER) No Justyn Miranda LCSW Note: Goal: Patient will be able to report improved mood/coping ability for family stressors/discord, to an acceptable level within the next six months Goal Reviewed today with: patient Readiness to change: Ready to change Department associated with goal: [facility] Steps to achieve goal: [...] documented as of this encounter Care Teams Armature And Rotor Winder Relationship Specialty Start Date End Date Milly Celaya, PROMOTIONS EXECUTIVE, QUALITY SYSTEMS SPECIALIST [address] [place] [address] PCP - General Obstetrics & Gynecology 05/23/18 Wilian Sultana MD Consulting Physician Neurology 08/11/16 06/24/24 Darnell Bryant MD [place] [address] [place] [address] Psychiatry 03/16/18 documented as of this encounter
--- OUTSIDE RECORDS SUMMARY | 2024-09-05 15:47 | XMS_ITS | Referral Summary ---
Author Organization [facility] Address [address] [place] [address] Care Team Providers Care Lease Analyst Name Role Phone Augustin Goodson MD Unavailable [phone] Leon Oneill MD Unavailable [phone] Rick Rivas MD Unavailable Wilian Sultana MD Unavailable [phone] Renetta Sarabia MD Unavailable [phone] Sara Vela MD Primary Care Provider Prudence Gaines MD Unavailable [phone] Encounters Date Type Department Care Team Description 08/31/2024 10:30 AM FINANCIAL SUPERVISOR Therapy [facility] Physical Therapy [address] [place] [address] 6th [place] [address] [place] [address] Mimi Coelho DPT 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) 07/30/2024 11:30 AM FINANCIAL SUPERVISOR Therapy [facility] Physical [address] 6th [place] [address] [place] [address] Aaliyah Koenig DPT 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, right (Primary Dx); Radial sensory nerve injury, right, subsequent encounter 07/19/2024 10:15 AM FINANCIAL SUPERVISOR Office Visit [facility] Cardiology [address] [facility] [address] [place] [address] Chase Ace MD Nonrheumatic aortic valve insufficiency (Primary Dx); Ventricular premature beats; Mixed hyperlipidemia; Essential hypertension 07/17/2024 2:00 PM FINANCIAL SUPERVISOR Therapy [facility] Physical [address] 6th [place] [address] [place] [address] Aaliyah Koenig DPT 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, right (Primary Dx) 07/10/2024 11:30 AM FINANCIAL SUPERVISOR Therapy [facility] Physical [address] 6th [place] [address] [place] [address] Mimi Coelho DPT 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, right (Primary Dx); Radial sensory nerve injury, right, subsequent encounter 07/04/2024 1:00 PM FINANCIAL SUPERVISOR Therapy [facility] Physical [address] 6th [place] [address] [place] [address] Aaliyah Koenig DPT 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, right (Primary Dx) 07/02/2024 [place] [address] Unknown, Notinfile 06/29/2024 11:30 AM FINANCIAL SUPERVISOR Therapy [facility] Physical [address] 6th [place] [address] [place] [address] Mimi Coelho DPT 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, right (Primary Dx); Radial sensory nerve injury, right, subsequent encounter 06/22/2024 Telephone [facility] Physical [place] [id number] [place] [address] Aaliyah Koenig DPT return call 06/18/2024 11:30 AM FINANCIAL SUPERVISOR Therapy [address] [place] [address] Aaliyah Koenig DPT 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, right (Primary Dx); Radial sensory nerve injury, right, subsequent encounter 06/16/2024 Plan of Care Documentation [address] [place] [address] 06/15/2024 11:30 AM FINANCIAL SUPERVISOR Therapy [address] [place] [address] Mimi Coelho, AVELINO 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 However symptoms were sudden in onset and very consistent with flu, which is prevalent in the area right now. I am going to treat her for influenza with Tamiflu as ordered. Discussed rest increase fluids supportive care at home and signs and symptoms for which to return or seek emergency care Cough 09/26/2018 12/26/2018 Immunizations Name Administration Dates Next Due Influenza, Quad, Adjuvantated, Intramuscular Pneumococcal Conjugate PCV 13 07/17/2020 Social History Tobacco Use Types Packs/Day Years [...] on file Legal Sex Female 7:06 AM FINANCIAL SUPERVISOR Gender Identity Female 06/12/2021 1:30 PM CDT Sexual Orientation Not on file Last Filed Vital Signs Vital Sign Reading Time Taken Comments Blood Pressure 104/60 07/19/2024 10:29 AM FINANCIAL SUPERVISOR Pulse 70 07/19/2024 10:29 AM FINANCIAL SUPERVISOR Temperature 37.2 ??C (98.9 ??F) 03/22/2019 1:09 PM CD T Respiratory Rate 18 03/22/2019 1:09 PM CDT Oxygen Saturation 97% 07/19/2024 10:29 AM FINANCIAL SUPERVISOR Inhaled Oxygen Concentration - - Weight 70.8 kg (156 lb) 07/19/2024 10:29 AM FINANCIAL SUPERVISOR Height 157.5 cm (5' 2 ) 07/19/2024 10:29 AM FINANCIAL SUPERVISOR Body Mass Index 28.53 07/19/2024 10:29 AM FINANCIAL SUPERVISOR Plan of Treatment Not on file Procedures Procedure Name Priority Date/Time Associated Diagnosis Comments SURGICAL PATHOLOGY Routine 07/02/2024 4: 10 PM FINANCIAL SUPERVISOR MAMMOGRAPHY Routine 12/06/2018 COLONOSCOPY Routine 03/19/2013 8:29 AM CDT DEXA SCAN Routine 12/20/2008 from Last 3 Months or Most Recently Relevant to Health Maintenance Results * Surgical pathology (07/02/2024 4:10 PM FINANCIAL SUPERVISOR) Skin, shave biopsy 07/02/2024 4:10 PM FINANCIAL SUPERVISOR 07/04/2024 7:03 AM FINANCIAL SUPERVISOR Narrative 07/09/2024 1:48 PM FINANCIAL SUPERVISOR [facility] results best viewed via link to PDF [facility] [address] [place] [address] T[address] ??[address] [place] [address] ? [email or web address] Note to Patients: ??This report may contain [...] ??07/09/2024 ? Submitting Physician Information: Pilar Renner, [facility], [address] [place] [address] ??[id number], ? DERMATOPATHOLOGY REPORT RESULTS ?? DIAGNOSIS: SKIN, [...] time of procedure. dh/mxf Clerical Data A; 37601 The characteristics of special, immunohistochemical, and immunofluorescence stains and in-situ hybridization tests performed by the [facility] were deemed acceptable in ongoing supplier quality manager measures and in compliance with regulations drawn from the Clinical Laboratory Improvement Act fd4818 (CLIA '88). Control reactions for all stains performed were deemed adequate and appropriate by a pathologist prior to evaluation of patient tissue. Some diagnoses were rendered with the assistance of laboratory-developed tests utilizing analyte-specific reagents; the performance characteristic of these tests were determined by [facility] and are not cleared or approved by the [place] Food an Drug administration. Laboratory developed test may only be performed in a facility that is certified by the [facility] as a high-complexity laboratory under CLIA '88. These tests are used for clinical purposes and are not investigational. Notinfile Unknown LAB PATHOLOGY ORDERABLES Final Result * MAMMOGRAPHY (12/06/2018) Mammogram Normal Result [facility] Historical Provider MD HEALTH MAINTENANCE Final Result * COLONOSCOPY (03/19/2013 8:29 AM CDT) Colonoscopy Normal Historical Provider MD HEALTH MAINTENANCE Final Result * DEXA SCAN (12/20/2008) DEXA Scan Unknown [facility] Provider MD HEALTH MAINTENANCE Final Result from Last 3 Months or Most Recently Relevant to Health Maintenance Insurance [facility] [employer] OPEN ACCESS [id number] [place], [place] [address] OPEN ACCESS [id number] [place] [address] [employer] OPEN ACCESS Care Teams Lease Analyst Relationship Specialty Start Date End Date Sara Vela MD [address] [facility] [facility] [facility] [address] [place] [address] PCP - General Family Practice 02/27/24 Augustin Goodson MD Referring Physician Nephrology 03/07/18 Leon Oneill MD [address] [place] [address] Referring Physician Hematology 03/07/18 Rick Rivas MD [address] [place] [address] Referring Physician Rheumatology 03/07/18 Wilian Sultana MD [address] [place] [address] Referring Physician Neurology 03/07/18 Renetta Sarabia MD [address] [place] [address] Referring Physician Family Practice 12/27/19 Prudence Gaines MD [address] [facility] [address] [place] [id number] Referring Physician Plastic Surgery 04/05/24
--- OUTSIDE RECORDS SUMMARY | 2024-09-05 16:18 | XMS_ITS | Encounter Summary ---
Author Organization [facility] Address [address] [place] [address]. [place], [place] [address] [place] [address] Care Team Providers Care Museum Preparator Name Role Phone Sara Vela MD Primary Care Provider Gin Toth MD Unavailable [phone] Augustin Goodson MD Unavailable Darnell Bryant MD Unavailable [phone] Leon Oneill MD Unavailable [phone] Rick Rivas MD Unavailable Encounter Details Date Type Department Care Team (Late st Contact Info) Description 11/19/2021 MyChart Message Enc [facility] [place] [address] [place], [place] [id number] [phone] Rudy Velasquez MD [address] [place] [address] I need help please Social History Tobacco [...] on filedocumented in this encounter Care Teams Museum Preparator Relationship Specialty Start Date End Date Sara Vela MD [address] [facility] [place] [address] PCP - General FAMILY PRACTICE 07/07/21 Gin Toth MD [address] [facility] [address] [place] [address] CARDIOVASCULAR DISEASE 08/31/21 Augustin Goodson MD [address] [facility] [address] [place] [address] Referring Physician NEPHROLOGY 08/31/21 Darnell Bryant MD [facility] in Psychiatry [address] [place] [address] Psychiatry 08/31/21 Leon Oneill MD [address] [place] [address] HEMATOLOGY/ONCOLOGY 08/31/21 Rick Rivas MD [address] [place] [address] Referring Physician RHEUMATOLOGY 08/31/21 documented as of this encounter
--- OUTSIDE RECORDS SUMMARY | 2024-09-05 16:18 | XMS_ITS | Encounter Summary ---
Author Organization [facility] Address [address] [place] [address] Phone Care Team Providers Care Technical Asst Name Role Phone Wilian Sultana MD Unavailable [phone] Darnell Bryant MD Unavailable Milly Celaya APRN, DIRECTOR PROCESS Primary Care Provider Unavailable Encounter Details Date Type Department Care Team (Late st Contact Info) Description 10/04/2023 Behavioral [facility] 1 [place] [address] Justyn Miranda, AUTO DRIVER [address] [place] [address] Social History Tobacco Use Types Packs/Day Years [...] st Contact Info) Description 09/19/2024 9:30 AM ELECTROLYSIST Telemedicine [facility] 1 [place] [address] Justyn Miranda, AUTO DRIVER [address] [place] [address] Discharge Disposition: Discharged to home or Selfcare documented as of this encounter Goals Goal Patient Goal Type Associated Problems Recent Progress Patient-Stated? Author I need to be able to cope better with my grief and bitterness towards my family within the next six months Behavioral Health On track(2024 9:24 AM ELECTROLYSIST) Yes Justyn Miranda LCSW Note: Goal Reviewed today with: patient Readiness to change: Ready to change Department associated with goal: [facility] Steps to achieve goal: Patient to be counseled on coping with grief, during her 45 min individual therapy sessions, 2-3 times per month Patient to be counseled on aspects of healthy self-care, during her 45 min individual sessions, 2-3 times per month Behavioral Health Behavioral Health On track(2024 9:24 AM ELECTROLYSIST) No Justyn Miranda LCSW Note: Goal: Patient will be able to report improved mood/coping ability for family stressors/discord, to an acceptable level within the next six months Goal Reviewed today with: patient Readiness to change: Ready to change Department associated with goal: [facility] Steps to achieve goal: [...] documented as of this encounter Care Teams Technical Asst Relationship Specialty Start Date End Date Milly Celaya, [place] ATTENDANT, DIRECTOR PROCESS JamieA [place] [address] PCP - General Obstetrics & Gynecology 05/23/18 Wilian Sultana MD Consulting Physician Neurology 08/11/16 06/24/24 Darnell Bryant MD [address] [facility], [place] [id number] Psychiatry 03/16/18 documented as of this encounter
--- OUTSIDE RECORDS SUMMARY | 2024-09-05 16:18 | XMS_ITS | Encounter Summary ---
Author Organization [facility] Address [address] [facility] [place] [address] Phone Care Team Providers Care Vending Supervisor Name Role Phone Wilian Sultana MD Unavailable Darnell Bryant MD Unavailable Milly Celaya APRN, HEALTH DIRECTOR Primary Care Provider Unavailable Encounter Details Date Type Department Care Team (Late st Contact Info) Description 04/05/2024 Behavioral [facility] 1 [place] [address] Jutsyn Miranda, DRAPERY OPERATOR [address] [place] [address] Social History Tobacco Use Types Packs/Day Years [...] Contact Info) Description 09/19/2024 9:30 AM INSPECTOR MACHINE CUT GLASS [facility]medicine [facility] 1 [place] [address] Justyn Miranda, DRAPERY OPERATOR [address] [place] [address] Discharge Disposition: Discharged to home or Selfcare documented as of this encounter Goals Goal Patient Goal Type Associated Problems Recent Progress Patient-Stated? Author I need to be able to cope better with my grief and bitterness towards my family within the next six months Behavioral Health On track(2024 9:24 AM INSPECTOR MACHINE CUT GLASS) Yes Justyn Miranda LCSW Note: Goal Reviewed [...] Behavioral Health On track(2024 9:24 AM INSPECTOR MACHINE CUT GLASS) No Justyn Miranda LCSW Note: Goal: Patient [...] documented as of this encounter Care Teams Vending Supervisor Relationship Specialty Start Date End Date Milly Celaya, RADIOGRAPHER, HEALTH DIRECTOR JamieA [address] [facility] [place] [address] PCP - General Obstetrics & Gynecology 05/23/18 Wilian Sultana MD Consulting Physician Neurology 08/11/16 06/24/24 Darnell Bryant MD [address] [facility], [place] [address] Psychiatry 03/16/18 documented as of this encounter
--- OUTSIDE RECORDS SUMMARY | 2024-09-05 16:18 | XMS_ITS | Encounter Summary ---
Author Organization [facility] Address [address] [place] [address] Care Team Providers Care Bench Mover Name Role Phone Renetta Sarabia MD Primary Care Provider Encounter Details Date Type Department Care Team (Late st Contact Info) Description 09/04/2024 External Device Data [facility] ABSTRACTION Provider, Abstract NO ADDRESS ON FILE Social History Tobacco Use Types Packs/Day Years Used Date Smoking Tobacco: Never Cigarettes Passive Smoke Exposure: Yes Alcohol Use Standard Drinks/Week Comments No 0 [...] st Contact Info) Description 07/22/2025 1:00 PM CONCRETE TILE MACHINE OPERATOR Office Visit [facility] Oncology and Hematology - [place] [address] [place] [address] [facility] [address] [place] [phone] Leon Oneill MD [address] [facility] [address] [place] [address] documented as of this encounter Visit Diagnoses Not on filedocumented in this encounter Care Teams Bench Mover Relationship Specialty Start Date End Date Renetta Sarabia MD PCP - General Family Practice 12/21/19 documented as of this encounter
--- OUTSIDE RECORDS SUMMARY | 2024-09-05 16:18 | XMS_ITS | Encounter Summary ---
Author Organization [facility] Address [address] [facility] [place] [address] Phone Care Team Providers Care Petrophysical Engineer Name Role Phone Wilian Sultana MD Unavailable [phone] Darnell Bryant MD Unavailable Milly Celaya APRN, PANTS PRESSER Primary Care Provider Unavailable Encounter Details Date Type Department Care Team (Late st Contact Info) Description 05/22/2024 Behavioral Health [facility] 1 [place] [address] Justyn Miranda, ALUM OPERATOR [address] [place] [address] Social History Tobacco Use Types Packs/Day Years [...] st Contact Info) Description 09/19/2024 9:30 AM HULL INSPECTOR [facility]icine [facility] 1 [place] [address] Justyn Miranda, ALUM OPERATOR [address] [place] [address] Discharge Disposition: Discharged to home or Selfcare documented as of this encounter Goals Goal Patient Goal Type Associated Problems Recent Progress Patient-Stated? Author I need to be able to cope better with my grief and bitterness towards my family within the next six months Behavioral Health On track(2024 9:24 AM HULL INSPECTOR) Yes Justyn Miranda LCSW Note: Goal Reviewed today with: patient Readiness to change: Ready to change Department associated with goal: [facility] Steps to achieve goal: Patient to be counseled on coping with grief, during her 45 min individual therapy sessions, 2-3 times per month Patient to be counseled on aspects of healthy self-care, during her 45 min individual sessions, 2-3 times per month Behavioral Health Behavioral Health On track(2024 9:24 AM HULL INSPECTOR) No Justyn Miranda LCSW Note: Goal: Patient will be able to report improved mood/coping ability for family stressors/discord, to an acceptable level within the next six months Goal Reviewed today with: patient Readiness to change: Ready to change Department associated with goal: [facility] Steps to [...] documented as of this encounter Care Teams Petrophysical Engineer Relationship Specialty Start Date End Date Milly Celaya, SPARES SCHEDULER, PANTS PRESSER JamieA [facility] [place] [address] PCP - General Obstetrics & Gynecology 05/23/18 Wilian Sultana MD Consulting Physician Neurology 08/11/16 06/24/24 Darnell Bryant MD [address] [facility] [place] [id number] Psychiatry 03/16/18 documented as of this encounter
--- OUTSIDE RECORDS SUMMARY | 2024-09-05 16:18 | XMS_ITS | Encounter Summary ---
Author Organization [facility] Address [address] [facility] [place] [address] Phone Care Team Providers Care Overlock Operator Name Role Phone Wilian Sultana MD Unavailable Darnell Bryant MD Unavailable Milly Celaya APRN, PIG HANDLER Primary Care Provider Unavailable Encounter Details Date Type Department Care Team (Late st Contact Info) Description 11/08/2023 Behavior[facility] Health [facility] 1 [place] [address] Justyn Miranda, ROTARY SURFACE GRINDER [address] [place] [address] Social History Tobacco Use Types Packs/Day Years [...] st Contact Info) Description 09/19/2024 9:30 AM BODY CLEANER Telemedicine [facility] 1 [place] [address] Justyn Miranda, ROTARY SURFACE GRINDER [address] [place] [address] Discharge Disposition: Discharged to home or Selfcare documented as of this encounter Goals Goal Patient Goal Type Associated Problems Recent Progress Patient-Stated? Author I need to be able to cope better with my grief and bitterness towards my family within the next six months Behavioral Health On track(2024 9:24 AM BODY CLEANER) Yes Justyn Miranda LCSW Note: Goal Reviewed today with: patient Readiness to change: Ready to change Department associated with goal: [facility] BEHAVIORAL HE[facility] SERVICES Steps to achieve goal: Patient to be counseled on coping with grief, during her 45 min individual therapy sessions, 2-3 times per month Patient to be counseled on aspects of healthy self-care, during her 45 min individual sessions, 2-3 times per month Behavioral Health Behavioral Health On track(2024 9:24 AM BODY CLEANER) No Justyn Miranda LCSW Note: Goal: Patient will be able to report improved mood/coping ability for family stressors/discord, to an acceptable level within the next six months Goal Reviewed today with: patient Readiness to change: Ready to change Department associated with goal: [facility] BEHAVIORAL HE[facility] SERVICES Steps to achieve goal: [...] documented as of this encounter Care Teams Overlock Operator Relationship Specialty Start Date End Date Milly Celaya, SUPERVISOR FRONT, PIG HANDLER [place] [address] PCP - General Obstetrics & Gynecology 05/23/18 Wilian Sultana MD Consulting Physician Neurology 08/11/16 06/24/24 Darnell Bryant MD [address] [facility], [place] [id number] Psychiatry 03/16/18 documented as of this encounter
--- OUTSIDE RECORDS SUMMARY | 2024-09-05 16:18 | XMS_ITS | Encounter Summary ---
Author Organization [facility] Address [address] [place] [address]. [place], [place] [id number] [place] [address] Care Team Providers Care Radiologic Technologist Mammogram Name Role Phone Sara Veal MD Primary Care Provider Gin Toth MD Unavailable [phone] Augustin Goodson MD Unavailable [phone] Darnell Bryant MD Unavailable [phone] Leon Oneill MD Unavailable [phone] Rick Rivas MD Unavailable Encounter Details Date Type Department Care Team (Late st Contact Info) Description 01/26/[address] [facility] Patient Accounts [address] [place] [address] [facility] Provider Payment Plan - Past due Social [...] on filedocumented in this encounter Care Teams Radiologic Technologist Mammogram Relationship Specialty Start Date End Date Sara Vela MD [address] [place] [address] PCP - General FAMILY PRACTICE 07/07/21 Gin Toth MD [address] [facility] [address] [place], [place] [id number] CARDIOVASCULAR DISEASE 08/31/21 Augustin Goodson MD [address] [facility] [address] [place] [address] Referring Physician NEPHROLOGY 08/31/21 Darnell Bryant MD [facility] in Psychiatry [address] [facility] [place], [place] [address] Psychiatry 08/31/21 Leon Oneill MD [address] [facility] [address] [place] [address] HEMATOLOGY/ONCOLOGY 08/31/21 Rick Rivas MD [address] [place] [address] Referring Physician RHEUMATOLOGY 08/31/21 documented as of this encounter
--- OUTSIDE RECORDS SUMMARY | 2024-09-05 16:18 | XMS_ITS | Encounter Summary ---
Author Organization [facility] Address [address] [place] [address] Care Team Providers Care Wall Insulation Sprayer Name Role Phone Renetta Sarabia MD Primary Care Provider Reason for Visit * Reason Onset Date Comments lab orders 07/13/2022 Encounter Details Date Type Department Care Team (Late st Contact Info) Description 07/13/2022 Telephone [facility] Oncology and Hematology - [place] [address] [place] [address] [address] [place] [address] Leon Oneill MD [address] [facility] [address] [place] [address] lab orders Social History Tobacco [...] Renetta Faith RN - 07/13/2022 10:28 AM POSTAL CARRIER No labs ordered for this patient at last visit. 1 year F/U. I pended CBC, CMP, Immunoglobulins. Please add any other orders needed. AL CARRIER documented in this encounter Plan of Treatment Upcoming Encounters Date Type Department Care Team (Late st Contact Info) Description 07/22/2025 1:00 PM POSTAL CARRIER Office Visit [facility] Oncology and Hematology - [place] [address] [facility] [address] [place] [address] Leon Oneill MD [address] [facility] [address] [place] [address] documented as of this encounter Visit Diagnoses Diagnosis Hypogammaglobulinemia- Primary Hypogammaglobulinaemia, unspecified documented in this encounter Care Teams Wall Insulation Sprayer Relationship Specialty Start Date End Date Renetta Sarabia MD PCP - General Family Practice 12/21/19 documented as of this encounter
--- OUTSIDE RECORDS SUMMARY | 2024-09-05 16:18 | XMS_ITS | Encounter Summary ---
Author Organization [facility] Address [address] [facility] [place] [address] Phone Care Team Providers Care Bullion Weigher Name Role Phone Wilian Sultana MD Unavailable Darnell Bryant MD Unavailable Milly Celaya APRN, MECHANICAL SOUND TECHNICIAN Primary Care Provider Unavailable Encounter Details Date Type Department Care Team (Late st Contact Info) Description 02/02/2024 [facility] 1 [place] [address] Justyn Miranda, MANAGER ROOFING [address] [place] [address] Social History Tobacco Use Types Packs/Day Years [...] st Contact Info) Description 09/19/2024 9:30 AM OBJECT ORIENTED PROGRAMMER [facility]medicine [facility] 1 [place] [address] Justyn Miranda, MANAGER ROOFING [address] [place] [address] Discharge Disposition: Discharged to home or Selfcare documented as of this encounter Goals Goal Patient Goal Type Associated Problems Recent Progress Patient-Stated? Author I need to be able to cope better with my grief and bitterness towards my family within the next six months Behavioral Health On track(2024 9:24 AM OBJECT ORIENTED PROGRAMMER) Yes Justyn Miranda LCSW Note: Goal Reviewed today with: patient Readiness to change: Ready to change Department associated with goal: [facility] BEHAVIORAL HEALTH SERVICES Steps to achieve goal: Patient to be counseled on coping with grief, during her 45 min individual therapy sessions, 2-3 times per month Patient to be counseled on aspects of healthy self-care, during her 45 min individual sessions, 2-3 times per month Behavioral Health Behavioral Health On track(2024 9:24 AM OBJECT ORIENTED PROGRAMMER) No Justyn Miranda LCSW Note: Goal: Patient will be able to report improved mood/coping ability for family stressors/discord, to an acceptable level within the next six months Goal Reviewed today with: patient Readiness to change: Ready to change Department associated with goal: [facility] BEHAVIORAL HEALTH SERVICES Steps to achieve goal: [...] documented as of this encounter Care Teams Bullion Weigher Relationship Specialty Start Date End Date Milly Celaya, FOOD SAMPLER, MECHANICAL SOUND TECHNICIAN JamieA Salvador [place] [address] PCP - General Obstetrics & Gynecology 05/23/18 Wilian Sultana MD Consulting Physician Neurology 08/11/16 06/24/24 Darnell Bryant MD [address] [facility], [place] [id number] Psychiatry 03/16/18 documented as of this encounter
--- OUTSIDE RECORDS SUMMARY | 2024-09-05 16:18 | XMS_ITS | Clinical Summary ---
Author Organization [facility] Address [address] [place] [address] Care Team Providers Care Quantitative Analyst Name Role Phone Saar Vela MD Primary Care Provider Source Comments [facility],non-owned Affiliates and Associated Physician Practices is amultiple site organization consisting of ambulatory clinics and hospital sitesin [place], [place], [place] and [place]. This disclosure is being madepursuant to the Care Everywhere program and may not contain all information available regarding this patient. Last updated 18.[facility] Allergies Active Allergy Reactions Criticality Noted Date [...] Comments Blood Pressure 112/62 06/23/2017 4:02 PM PERFORATOR LOADER Pulse 55 06/23/2017 4:02 PM PERFORATOR LOADER Temperature 36.8 ??C (98.2 ??F) 06/23/2017 4:02 PM CS T Respiratory Rate 16 06/23/2017 4:02 PM PERFORATOR LOADER Oxygen Saturation - - Inhaled Oxygen Concentration - - Weight 67.1 kg (148 lb) 06/23/2017 4:02 PM PERFORATOR LOADER Height 157.5 cm (5' 2 ) 06/23/2017 4:02 PM PERFORATOR LOADER Body Mass Index 27.07 06/23/2017 4:02 PM PERFORATOR LOADER Plan of Treatment Health Maintenance Due Date [...] on patient's age to complete this topic Care Teams Quantitative Analyst Relationship Specialty Start Date End Date Sara Vela MD [address] [place] [address] PCP - General 12/06/22
--- OUTSIDE RECORDS SUMMARY | 2024-09-05 16:18 | XMS_ITS | Clinical Summary ---
Author Organization [facility] Address [address] [facility], [place] [address] Phone Care Team Providers Care Regional Recruiter Name Role Phone Darnell Bryant MD Unavailable Milly Celaya APRN, TOBACCO STRIPPER Primary Care Provider Unavailable Allergies Active Allergy [...] Department Care Team Description 08/31/2024 9:15 AM LOG WASHER Telemedicine [facility] Behavioral Health Services 1 [place] [address] Justyn Miranda LCSW Generalized anxiety disorder (Primary Dx); Panic disorder Discharge Disposition: Discharged to home or Selfcare 08/31/2024 Travel 08/27/2024 Travel 08/06/2024 8:30 AM LOG WASHER Telemedicine [facility] Behavioral Health Services 1 [place] [address] Justyn Miranda LCSW Generalized anxiety disorder (Primary Dx); Panic disorder; Adjustment disorder with mixed anxiety and depressed mood Discharge Disposition: Discharged to home or Selfcare 08/06/2024 Behavioral Health Patient Survey [facility] Behavioral Health Services 1 [place] [address] Justyn Miranda LCSW 08/06/2024 Travel 07/18/2024 8:30 AM LOG WASHER [facility] 1 [place] [address] Justyn Miranda LCSW Generalized anxiety disorder (Primary Dx); Panic disorder; Adjustment disorder with mixed anxiety and depressed mood Discharge Disposition: Discharged to home or Selfcare 07/18/2024 Travel 06/22/2024 8:30 AM LOG WASHER Telemedicine [facility] Behavioral Health Services 1 [place] [address] Justyn Miranda LCSW Generalized anxiety disorder (Primary Dx); Panic disorder; Adjustment disorder with mixed anxiety and depressed mood Discharge Disposition: Discharged to home or Selfcare 06/22/2024 Behavioral Health Patient Survey [facility] Behavioral Health Services 1 [place] [address] Justyn Miranda LCSW 06/22/2024 Travel 06/07/2024 8:30 AM CDT Telemedicine [facility] Behavioral Health Services 1 [place] [address] Justyn Miranda LCSW Generalized anxiety disorder (Primary [...] st Contact Info) Description 09/19/2024 9:30 AM LOG WASHER Telemedicine [facility] Behavioral Health Services 1 [place] [address] Justyn Miranda LCSW [address] [facility] [place] [address] Discharge Disposition: Discharged to home or Selfcare [...] months Behavioral Health On track(2024 9:24 AM LOG WASHER) Yes Justyn Miranda, CHRISTIANO Note: Goal Reviewed today with: patient Readiness to change: Ready to change Department associated with goal: [facility] BEHAVIORAL HEALTH SERVICES Steps to achieve goal: Patient to be counseled on coping with grief, during her 45 min individual therapy sessions, 2-3 times per month Patient to be counseled on aspects of healthy self-care, during her 45 min individual sessions, 2-3 times per month Behavioral Health Behavioral Health On track(2024 9:24 AM LOG WASHER) Justyn Monique, CHRISTIANO Note: Goal: Patient will be able to report improved mood/coping ability for family stressors/discord, to an acceptable level within the next six months Goal Reviewed today with: patient Readiness to change: Ready to change Department associated with goal: [facility] BEHAVIORAL HEALTH SERVICES Steps to achieve goal: Patient counseled on coping with depression, including healthy leisure interests, seeking emotional support Patient counseled on healthy communication skills/setting healthy boundaries/expectations with family members Insurance [employer] Care Teams Regional Recruiter Relationship Specialty Start Date End Date Milly Celaya, SPRAY DRY OPERATOR, TOBACCO STRIPPER [address] [place] [address] PCP - General Obstetrics & Gynecology 05/23/18 [place] [address] Psychiatry 03/16/18
--- OUTSIDE RECORDS SUMMARY | 2024-09-05 16:18 | XMS_ITS | Referral Summary ---
Author Organization [facility] Address [address] [place] [address] Care Team Providers Care Gas Regulator Repairer Name Role Phone Sara Vela MD Primary Care Provider Source Comments [facility],non-owned Affiliates and Associated Physician Practices is amultiple site organization consisting of ambulatory clinics and hospital sitesin [place], [place], [place] and [place]. This disclosure is being madepursuant to the Care Everywhere program and may not contain all information available regarding this patient. Last updated 18.[facility] Allergies Active Allergy Reactions Criticality Noted Date [...] Comments Blood Pressure 112/62 06/23/2017 4:02 PM DRAWING KILN SUPERVISOR Pulse 55 06/23/2017 4:02 PM DRAWING KILN SUPERVISOR Temperature 36.8 ??C (98.2 ??F) 06/23/2017 4:02 PM CS T Respiratory Rate 16 06/23/2017 4:02 PM DRAWING KILN SUPERVISOR Oxygen Saturation - - Inhaled Oxygen Concentration - - Weight 67.1 kg (148 lb) 06/23/2017 4:02 PM DRAWING KILN SUPERVISOR Height 157.5 cm (5' 2 ) 06/23/2017 4:02 PM DRAWING KILN SUPERVISOR Body Mass Index 27.07 06/23/2017 4:02 PM DRAWING KILN SUPERVISOR Plan of Treatment Not on file Care Teams Gas Regulator Repairer Relationship Specialty Start Date End Date Sara Vela MD [address] [place] [address] PCP - General 12/06/22
--- OUTSIDE RECORDS SUMMARY | 2024-09-05 16:18 | XMS_ITS | Encounter Summary ---
Author Organization [facility] Address [address] [facility] [place] [address] Phone Care Team Providers Care Caterpillar Driver Name Role Phone Wilian Sultana MD Unavailable Darnell Bryant MD Unavailable Milly Celaya APRN, DOCUMENT PROCESSOR Primary Care Provider Unavailable Encounter Details Date Type Department Care Team (Late st Contact Info) Description 12/20/2023 Behavioral [facility] 1 [place] [address] Justyn Miranda, BUSINESS TEACHER [address] [place] [address] Social History Tobacco Use Types Packs/Day Years [...] st Contact Info) Description 09/19/2024 9:30 AM ELEVATOR STARTER [facility]medicine [facility] 1 [place] [address] Justyn Miranda, BUSINESS TEACHER [address] [place] [address] Discharge Disposition: Discharged to home or Selfcare documented as of this encounter Goals Goal Patient Goal Type Associated Problems Recent Progress Patient-Stated? Author I need to be able to cope better with my grief and bitterness towards my family within the next six months Behavioral Health On track(2024 9:24 AM ELEVATOR STARTER) Yes Justyn Miranda LCSW Note: Goal Reviewed today with: patient Readiness to change: Ready to change Department associated with goal: [facility] BEHAVIORAL HEALTH SERVICES Steps to achieve goal: Patient to be counseled on coping with grief, during her 45 min individual therapy sessions, 2-3 times per month Patient to be counseled on aspects of healthy self-care, during her 45 min individual sessions, 2-3 times per month Behavioral Health Behavioral Health On track(2024 9:24 AM ELEVATOR STARTER) No Justyn Miranda LCSW Note: Goal: Patient will be able to report improved mood/coping ability for family stressors/discord, to an acceptable level within the next six months Goal Reviewed today with: patient Readiness to change: Ready to change Department associated with goal: [facility] BEHAVIORAL HEALTH SERVICES Steps [...] documented as of this encounter Care Teams Caterpillar Driver Relationship Specialty Start Date End Date Milly Celaya, COLD WORKING SUPERVISOR, DOCUMENT PROCESSOR JamieA [place] [address] PCP - General Obstetrics & Gynecology 05/23/18 Wilian Sultana MD Consulting Physician Neurology 08/11/16 06/24/24 Darnell Bryant MD [address] [facility], [place] [id number] Psychiatry 03/16/18 documented as of this encounter
--- OUTSIDE RECORDS SUMMARY | 2024-09-05 16:18 | XMS_ITS | Continuity of Care Document ---
Author Organization [facility] Address [address] [place] [address] [place] [address] Phone Care Team Providers Care Cryptoanalysis Teacher Name Role Phone Marcus Redmond Unavailable Unavailable [...] Providers Copied on Encounter Office/outpat ient Visit, [facility], [address] [place] [address] [address], [place], [place], [id number], [place] tel:[phone] [facility] [place] No Information 9-201 0 Nyla Velazquez. [address] , [address], [place], [place], [facility], . tel:[phone] Office/outpat ient Visit, [facility], [address] [place] [address] [address], [place], [place], [id number], [place] tel:[phone] [facility] [place] No Information 1-200 9 Hali Barahona. [address] , [address], [place], [address], . tel:[phone] Office/outpat ient Visit, [facility], [address] [place] [address] [address], [place], [place], [id number], [place] tel:[phone] [facility] [place] No Information May-0 7-200 9 Lal Brooklyn. [address], [place], [place], [facility], . tel:[phone] Office/outpat ient Visit, [facility], [address] [place] [address] [address], [place], [place], [id number], [place] tel:[phone] [facility] [place] No Information Apr-2 7-200 9 Trey Grimaldohil. [address], [place], [place], [facility], . tel:[phone] [facility], [address] [place] [address] [address], [place], [place], [id number], tel:[phone] [facility] [place] No Information Nov-2 3-200 9 Hali Barahona. [address] , [address], [place], [place], [facility], . tel:[phone] [facility], [address] [place] [address] [address], [place], [place], [id number], tel:[phone] [facility] [place] No Information Ish-2 0-200 9 Hall OD Darnell. [address] , [address], [place], [place], [facility], [place]. tel:[phone] [facility], [address] [place] [address] [address], [place], [place], [id number], [place] tel:[phone] [facility] No Information Feb-2 8-200 7 Hall OD Darnell. [address] , [address], [place], [place], [facility], . tel:[phone] Family History Family Member Type Diagnosis Age [...]
--- OUTSIDE RECORDS SUMMARY | 2024-09-05 16:18 | XMS_ITS | Encounter Summary ---
Author Organization [facility] Address [address] [place] [address] Phone Care Team Providers Care Cutter And Paster Press Clippings Name Role Phone Darnell Bryant MD Unavailable Milly Celaya APRN, PRECISION AIRCRAFT STRUCTURE ASSEMBLER Primary Care Provider Unavailable Encounter Details Date Type Department Care Team (Late st Contact Info) Description 08/06/2024 Behavior[facility] 1 [place] [address] Justyn Miranda, PLASTIC WELDER [address] [place] [address] Social History Tobacco Use Types Packs/Day Years [...] st Contact Info) Description 09/19/2024 9:30 AM BLUEPRINT REPRODUCER [facility]medicine [facility] [address] [place] [address] Justyn Miranda, PLASTIC WELDER [address] [place] [address] Discharge Disposition: Discharged to home or Selfcare documented as of this encounter Goals Goal Patient Goal Type Associated Problems Recent Progress Patient-Stated? Author I need to be able to cope better with my grief and bitterness towards my family within the next six months Behavioral Health On track(2024 9:24 AM BLUEPRINT REPRODUCER) Yes Justyn Miranda LCSW Note: Goal Reviewed [...] Health Behavioral Health On track(2024 9:24 AM BLUEPRINT REPRODUCER) No Justny Miranda LCSW Note: Goal: Patient will be [...] documented as of this encounter Care Teams Cutter And Paster Press Clippings Relationship Specialty Start Date End Date Milly Celaya, CAREER CONSULTANT, PRECISION AIRCRAFT STRUCTURE ASSEMBLER [address] [place] [address] PCP - General Obstetrics & Gynecology 05/23/18 Darnell Bryant MD [address] [place] [address] Psychiatry 03/16/18 documented as of this encounter
--- OUTSIDE RECORDS SUMMARY | 2024-09-05 16:18 | XMS_ITS | Encounter Summary ---
Author Organization [facility] Address [address] [facility] [place] [place] [address] Phone Care Team Providers Care High Density Finishing Operator Name Role Phone Wilian Sultana MD Unavailable Darnell Bryant MD Unavailable Milly Celaya APRN, ANIMAL HOSPITAL OFFICE SUPERVISOR Primary Care Provider Unavailable Encounter Details Date Type Department Care Team (Late st Contact Info) Description 06/22/2024 Behavioral Health [facility] [address] [place] [address] Justyn Miranda, SHOT POLISHER #1 [place] [address] Social History Tobacco Use Types Packs/Day Years [...] st Contact Info) Description 09/19/2024 9:30 AM UTILITY SALES REPRESENTATIVE Telemedicine [facility] [address] [place] [address] Justyn Miranda, SHOT POLISHER #[address] [place] [address] Discharge Disposition: Discharged to home or Selfcare documented as of this encounter Goals Goal Patient Goal Type Associated Problems Recent Progress Patient-Stated? Author I need to be able to cope better with my grief and bitterness towards my family within the next six months Behavioral Health On track(2024 9:24 AM UTILITY SALES REPRESENTATIVE) Yes Justyn Miranda LCSW Note: Goal Reviewed today with: patient Readiness to change: Ready to change Department associated with goal: [facility] Steps to achieve goal: Patient to be counseled on coping with grief, during her 45 min individual therapy sessions, 2-3 times per month Patient to be counseled on aspects of healthy self-care, during her 45 min individual sessions, 2-3 times per month Behavioral Health Behavioral Health On track(2024 9:24 AM UTILITY SALES REPRESENTATIVE) No Justyn Miranda LCSW Note: Goal: Patient will be able to report improved mood/coping ability for family stressors/discord, to an acceptable level within the next six months Goal Reviewed today with: patient Readiness to change: Ready to change Department associated with goal: [facility] Steps to achieve goal: [...] documented as of this encounter Care Teams High Density Finishing Operator Relationship Specialty Start Date End Date Milly Celaya, SERVICE TRAINER, ANIMAL HOSPITAL OFFICE SUPERVISOR JamieA Salvador [place] [address] PCP - General Obstetrics & Gynecology 05/23/18 Wilian Sultana MD Consulting Physician Neurology 08/11/16 06/24/24 Darnell Bryant MD [address] [facility] [id number] Psychiatry 03/16/18 documented as of this encounter
--- OUTSIDE RECORDS SUMMARY | 2024-09-05 16:18 | XMS_ITS | Encounter Summary ---
Author Organization [facility] Address [address] [facility] [place] [address] Phone Care Team Providers Care Flag Car Driver Name Role Phone Wilian Sultana MD Unavailable Darnell Bryant MD Unavailable Milly Celaya APRN, BUFFING WHEEL FORMER MACHINE Primary Care Provider Unavailable Encounter Details Date Type Department Care Team (Late st Contact Info) Description 03/05/2024 [facility] 1 [place] [address] Justyn Miranda, TRAUMA SURGEON #1 [place] [address] Social History Tobacco Use Types Packs/Day Years [...] st Contact Info) Description 09/19/2024 9:30 AM ANODIZE MACHINE OPERATOR [facility]medicine [facility] 1 [place] [address] Justyn Miranda, TRAUMA SURGEON #[address] [place] [address] Discharge Disposition: Discharged to home or Selfcare documented as of this encounter Goals Goal Patient Goal Type Associated Problems Recent Progress Patient-Stated? Author I need to be able to cope better with my grief and bitterness towards my family within the next six months Behavioral Health On track(2024 9:24 AM ANODIZE MACHINE OPERATOR) Yes Justyn Miranda LCSW Note: Goal Reviewed today with: patient Readiness to change: Ready to change Department associated with goal: [facility] Steps to achieve goal: Patient to be counseled on coping with grief, during her 45 min individual therapy sessions, 2-3 times per month Patient to be counseled on aspects of healthy self-care, during her 45 min individual sessions, 2-3 times per month Behavioral Health Behavioral Health On track(2024 9:24 AM ANODIZE MACHINE OPERATOR) No Justyn Miranda LCSW Note: Goal: Patient will be able to report improved mood/coping ability for family stressors/discord, to an acceptable level within the next six months Goal Reviewed today with: patient Readiness to change: Ready to change Department associated with goal: [facility] Steps to achieve [...] documented as of this encounter Care Teams Flag Car Driver Relationship Specialty Start Date End Date Milly Celaya, NATIONAL INVESTIGATIVE PRODUCER, BUFFING WHEEL FORMER MACHINE JamieA Salvador [facility] [address] PCP - General Obstetrics & Gynecology 05/23/18 Wilian Sultana MD Consulting Physician Neurology 08/11/16 06/24/24 Darnell Bryant MD [address] [facility] [id number] Psychiatry 03/16/18 documented as of this encounter
--- OUTSIDE RECORDS SUMMARY | 2024-09-05 16:18 | XMS_ITS | Patient Health Summary ---
Author Organization [facility] Address [address] [address] Care Team Providers Care Auto Driver Name Role Phone Sara Vela MD Primary Care Provider Note from [facility],non-owned Affiliates and Associated Physician Practices is amultiple site organization consisting of ambulatory clinics and hospital sitesin [place], [place], [place] and [place]. This disclosure is being madepursuant to the Care Everywhere program and may not contain all information available regarding this patient. Last updated 18.[facility] Allergies * Contrast-Iodinated Agents For Ct/Other(Unknown) [...] Comments Blood Pressure 112/62 06/23/2017 4:02 PM BRUSH TRIMMING MACHINE SETTER Pulse 55 06/23/2017 4:02 PM BRUSH TRIMMING MACHINE SETTER Temperature 36.8 ??C (98.2 ??F) 06/23/2017 4:02 PM CS T Respiratory Rate 16 06/23/2017 4:02 PM BRUSH TRIMMING MACHINE SETTER Oxygen Saturation - - Inhaled Oxygen Concentration - - Weight 67.1 kg (148 lb) 06/23/2017 4:02 PM BRUSH TRIMMING MACHINE SETTER Height 157.5 cm (5' 2 ) 06/23/2017 4:02 PM BRUSH TRIMMING MACHINE SETTER Body Mass Index 27.07 06/23/2017 4:02 PM BRUSH TRIMMING MACHINE SETTER Care Teams Auto Driver Relationship Specialty Start Date End Date Sara Vela MD [address] [place] [address] PCP - General 12/06/22
--- OUTSIDE RECORDS SUMMARY | 2024-09-05 16:19 | XMS_ITS | Referral Summary ---
Author Organization [facility] Medical [facility] Building [address] Address [address] [place] [address] Care Team Providers Care Mixer And Blender Name Role Phone Augustin Goodson MD Unavailable [phone] Leon Oneill MD Unavailable [phone] Rick Rivas MD Unavailable Wilian Sultana MD Unavailable [phone] Renetta Sarabia MD Unavailable [phone] Sara Vela MD Primary Care Provider Prudence Gaines MD Unavailable [phone] Encounters Date Type Department Care Team Description 08/31/2024 10:30 AM PHOTOGRAPHIC PROCESS ATTENDANT Therapy [facility] Physical Therapy [address] [place] [address] 6th [place] [address] Mimi Coelho DPT 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) 08/24/2024 11:30 AM PHOTOGRAPHIC PROCESS ATTENDANT Therapy [facility] Physical Therapy [facility] 6th [place] [address] [place] [address] Mimi Coelho DPT 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, right (Primary Dx); Radial sensory nerve injury, right, subsequent encounter 08/10/2024 11:30 AM PHOTOGRAPHIC PROCESS ATTENDANT Therapy [facility] Physical Therapy [address] [place] [address] 6th [place] [address] [place] [address] Mimi Coelho DPT 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) 08/02/2024 Orders Only [facility] Surgery [address] [place] [address] 6th [place] [address] [place] [address] Telma Frost MD 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) 07/30/2024 11:30 AM PHOTOGRAPHIC PROCESS ATTENDANT Therapy [facility] Physical [address] 6th [place] [address] [place] [address] Aaliyah Koenig DPT 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, right (Primary Dx); Radial sensory nerve injury, right, subsequent encounter 07/19/2024 10:15 AM PHOTOGRAPHIC PROCESS ATTENDANT Office Visit [facility] Cardiology [address] [place] [address] Chase Ace MD Nonrheumatic aortic valve insufficiency (Primary Dx); Ventricular premature beats; Mixed hyperlipidemia; Essential hypertension 07/17/2024 2:00 PM PHOTOGRAPHIC PROCESS ATTENDANT Therapy [facility] Physical [address] 6th [place] [address] [place] [address] Aaliyah Koenig DPT 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, right (Primary Dx) 07/10/2024 11:30 AM PHOTOGRAPHIC PROCESS ATTENDANT Therapy [facility] Physical [address] 6th [place] [address] [place] [address] Mimi Coelho DPT 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, right (Primary Dx); Radial sensory nerve injury, right, subsequent encounter 07/04/2024 1:00 PM PHOTOGRAPHIC PROCESS ATTENDANT Therapy [facility] Physical [address] 6th [place] [address] [place] [address] Aaliyah Koenig DPT 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, right (Primary Dx) 07/02/2024 Orders Only [place] [address] Unknown, Notinfile 06/29/2024 11:30 AM PHOTOGRAPHIC PROCESS ATTENDANT Therapy [facility] Physical [address] 6th [place] [address] [place] [address] Mimi Coelho DPT 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, right (Primary Dx); Radial sensory nerve injury, right, subsequent encounter 06/22/2024 Telephone [facility] Physical [place] [address] [place] [address] Aaliyah Koenig DPT return call 06/18/2024 11:30 AM PHOTOGRAPHIC PROCESS ATTENDANT Therapy [address] [place] [address] Aaliyah oKenig DPT 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, right (Primary Dx); Radial sensory nerve injury, right, subsequent encounter 06/16/2024 Plan of Care Documentation [address] [place] [address] 06/15/2024 11:30 AM PHOTOGRAPHIC PROCESS ATTENDANT Therapy [address] [place] [address] Mimi Coelho, AVELINO Median nerve compression in [...] 12/26/2018 Assessment & Plan (10/04/2018 9:33 PM PHOTOGRAPHIC PROCESS ATTENDANT): Rapid flu in office was negative as [...] on file Legal Sex Female 7:06 AM PHOTOGRAPHIC PROCESS ATTENDANT Gender Identity Female 06/12/2021 1:30 PM CDT Sexual Orientation Not on file Last Filed Vital Signs Vital Sign Reading Time Taken Comments Blood Pressure 104/60 07/19/2024 10:29 AM PHOTOGRAPHIC PROCESS ATTENDANT Pulse 70 07/19/2024 10:29 AM PHOTOGRAPHIC PROCESS ATTENDANT Temperature 37.2 ??C (98.9 ??F) 03/22/2019 1:09 PM CD T Respiratory Rate 18 03/22/2019 1:09 PM CDT Oxygen Saturation 97% 07/19/2024 10:29 AM PHOTOGRAPHIC PROCESS ATTENDANT Inhaled Oxygen Concentration - - Weight 70.8 kg (156 lb) 07/19/2024 10:29 AM PHOTOGRAPHIC PROCESS ATTENDANT Height 157.5 cm (5' 2 ) 07/19/2024 10:29 AM PHOTOGRAPHIC PROCESS ATTENDANT Body Mass Index 28.53 07/19/2024 10:29 AM PHOTOGRAPHIC PROCESS ATTENDANT Plan of Treatment Not on file Procedures Procedure Name Priority Date/Time Associated Diagnosis Comments SURGICAL PATHOLOGY Routine 07/02/2024 4: 10 PM PHOTOGRAPHIC PROCESS ATTENDANT MAMMOGRAPHY Routine 12/06/2018 COLONOSCOPY Routine 03/19/2013 8:29 AM CDT DEXA SCAN Routine 12/20/2008 from Last 3 Months or Most Recently Relevant to Health Maintenance Results * Surgical pathology (07/02/2024 4:10 PM PHOTOGRAPHIC PROCESS ATTENDANT) Skin, shave biopsy 07/02/2024 4:10 PM PHOTOGRAPHIC PROCESS ATTENDANT 07/04/2024 7:03 AM PHOTOGRAPHIC PROCESS ATTENDANT Narrative 07/09/2024 1:48 PM PHOTOGRAPHIC PROCESS ATTENDANT [facility] results best viewed via link to PDF [facility] [address] [place] [address] [address] ??[address] [place] [address] ? [email or web address] Note to Patients: ??This report may contain [...] ??07/09/2024 ? Submitting Physician Information: Pilar Renner, [facility], [address] [place] [address] ??[id number], ? DERMATOPATHOLOGY REPORT RESULTS ?? DIAGNOSIS: SKIN, [...] time of procedure. dh/mxf Clerical Data A; 35609 The characteristics of special, immunohistochemical, and immunofluorescence stains and in-situ hybridization tests performed by the [facility] were deemed acceptable in ongoing quality system manager measures and in compliance with regulations drawn from the Clinical Laboratory Improvement Act cd7044 (CLIA '88). Control reactions for all stains performed were deemed adequate and appropriate by a pathologist prior to evaluation of patient tissue. Some diagnoses were rendered with the assistance of laboratory-developed tests utilizing analyte-specific reagents; the performance characteristic of these tests were determined by [facility] and are not cleared or approved by the [place] Food an Drug administration. Laboratory developed test may only be performed in a facility that is certified by the [facility] as a high-complexity laboratory under CLIA '88. These tests are used for clinical purposes and are not investigational. Notinfile Unknown LAB PATHOLOGY ORDERABLES Final Result * MAMMOGRAPHY (12/06/2018) Mammogram Normal Result [facility] Historical Provider MD HEALTH MAINTENANCE Final Result * COLONOSCOPY (03/19/2013 8:29 AM CDT) Colonoscopy Normal Historical Provider MD HEALTH MAINTENANCE Final Result * DEXA SCAN (12/20/2008) DEXA Scan Unknown [facility] Provider MD HEALTH MAINTENANCE Final Result from Last 3 Months or Most Recently Relevant to Health Maintenance Insurance [facility] [employer] OPEN ACCESS [id number] [place], [place] [address] OPEN ACCESS [id number] [place] [address] [employer] OPEN ACCESS Care Teams Mixer And Blender Relationship Specialty Start Date End Date Sara Vela MD [address] [place] [address] PCP - General Family Practice 02/27/24 Augustin Goodson MD Referring Physician Nephrology 03/07/18 Leon Oneill MD [address] [place] [address] Referring Physician Hematology 03/07/18 Rick Rivas MD [address] [place] [address] Referring Physician Rheumatology 03/07/18 Wilian Sultana MD [address] [place] [address] Referring Physician Neurology 03/07/18 Renetta Sarabia MD [address] [place] [address] Referring Physician Family Practice 12/27/19 Prudenec Gaines MD [address] [facility] [address] [place] [id number] Referring Physician Plastic Surgery 04/05/24
--- OUTSIDE RECORDS SUMMARY | 2024-09-05 16:19 | XMS_ITS | Encounter Summary ---
Author Organization [facility] Address [address] [place] [address] Care Team Providers Care Soaker Meat Name Role Phone Leon Chandler MD Primary Care Provider [phone] Leon Chandler MD Primary Care Provider [phone] Milly Celaya NP Primary Care Provider [phone] Augustin Goodson MD Unavailable [phone] Leon Oneill MD Unavailable [phone] Rick Rivas MD Unavailable Gin Toth MD Unavailable [phone] Wilian Sultana MD Unavailable [phone] No, Physician Primary Care Provider [phone] Renetta Sarabia MD Primary Care Provider [phone] Renetta Sarabia MD Unavailable [phone] Renetta Sarabia MD Primary Care Provider [phone] Sara Vela MD Primary Care Provider Prudence Gaines MD Unavailable [phone] Encounter Details Date Type Department Care Team (Late st Contact Info) Description 08/25/2016 Orders Only [facility] ProviderMitchell MD [address] [place] [address] Social History Tobacco Use Types Packs/Day Years Used Date Smoking Tobacco: Never Alcohol Use Standard Drinks/Week Comments No 0 (1 standard drink = 0.6 oz pur e alcohol) Comments Unknown Sex and Gender Information Value Date Recorded Sex Assigned at Not on file Legal Sex Female 7:06 AM SPORTS TEAM MARKETING INTERN Gender Identity Female 06/12/2021 1:30 PM CDT [...] on filedocumented in this encounter Care Teams Soaker Meat Relationship Specialty Start Date End Date Leon Chandler MD PCP - General 11/05/16 03/06/18 Leon Chandler MD PCP - General 02/25/14 11/04/16 Milly Celaya NP [address] [place] [address] PCP - General Family Medicine 03/07/18 11/08/19 No, Physician PCP - General 11/09/19 12/26/19 Renetta Sarabia MD PCP - General Family Practice 12/27/19 12/27/19 Renetta Sarabia MD PCP - General Family Practice 01/03/20 09/21/21 Sara Vela MD [address] [facility] [address] [place] [address] PCP - General Family Practice 02/27/24 Augustin Goodson MD [address] [place] [address] [address] [place] [address] Referring Physician Nephrology 03/07/18 Leon Oneill MD [address] [facility] 200 [place] [address] Referring Physician Hematology 03/07/18 Rick Rivas MD [address] [facility] 200 [place] [address] Referring Physician Rheumatology 03/07/18 Gin Toth MD [address] [facility] [address] [place] [address] Consulting Physician Cardiology 03/07/18 02/26/24 Wilian Sultana MD [address] [facility] 3 [place] [address] Referring Physician Neurology 03/07/18 Renetta Sarabia MD Referring Physician Family Practice 12/27/19 Prudence Gaines MD [address] [facility] [address] [place] [address] Referring Physician Plastic Surgery 04/05/24 documented as of this encounter
--- OUTSIDE RECORDS SUMMARY | 2024-09-05 16:19 | XMS_ITS | Encounter Summary ---
Author Organization [facility] Address [address] [facility] [place] [address] Phone Care Team Providers Care Pharmacy Benefit Manager Name Role Phone Wilian Sultana MD Unavailable [phone] Darnell Bryant MD Unavailable Milly Celaya APRN, ROAD OILER Primary Care Provider Unavailable Encounter Details Date Type Department Care Team (Late st Contact Info) Description 05/25/2023 Behavioral Health [facility] 1 [place] [address] Justyn Miranda, [facility] [address] [place] [address] Social History Tobacco Use Types Packs/Day Years [...] st Contact Info) Description 09/19/2024 9:30 AM COUNTER STITCHER Telemedicine [facility] Behavioral Health Services [address] [place] [address] Justyn Miranda LCSW [address] [place] [address] Discharge Disposition: Discharged to home or Selfcare documented as of this encounter Goals Goal Patient Goal Type Associated Problems Recent Progress Patient-Stated? Author I need to be able to cope better with my grief and bitterness towards my family within the next six months Behavioral Health On track(2024 9:24 AM COUNTER STITCHER) Yes Justyn Miranda LCSW Note: Goal Reviewed today with: patient Readiness to change: Ready to change Department associated with goal: [facility] Steps to achieve goal: Patient to be counseled on coping with grief, during her 45 min individual therapy sessions, 2-3 times per month Patient to be counseled on aspects of healthy self-care, during her 45 min individual sessions, 2-3 times per month Behavioral Health Behavioral Health On track(2024 9:24 AM COUNTER STITCHER) No Justyn Miranda LCSW Note: Goal: Patient will be able to report improved mood/coping ability for family stressors/discord, to an acceptable level within the next six months Goal Reviewed today with: patient Readiness to change: Ready to change Department associated with goal: [facility] Steps to [...] documented as of this encounter Care Teams Pharmacy Benefit Manager Relationship Specialty Start Date End Date Milly Celaya, RESPIRATORY CARE PROGRAM DIRECTOR, ROAD OILER [address] [place] [address] PCP - General Obstetrics & Gynecology 05/23/18 Wilian Sultana MD Consulting Physician Neurology 08/11/16 06/24/24 Darnell Bryant MD [address] [place] [address] Psychiatry 03/16/18 documented as of this encounter
--- OUTSIDE RECORDS SUMMARY | 2024-09-05 16:19 | XMS_ITS | Clinical Summary ---
Author Organization [facility] Medical Office Building B Address [address] [place] [address] Care Team Providers Care Operations Superintendent Name Role Phone Augustin Goodson MD Unavailable [phone] Leon Oneill MD Unavailable [phone] Rick Rivas MD Unavailable Wilian Sultana MD Unavailable [phone] Renetta Sarabia MD Unavailable [phone] Sara Vela MD Primary Care Provider Prudence Gaines MD Unavailable [phone] Allergies Active Allergy Reactions Criticality Noted Date [...] 01/21/2017 Dyspnea on exertion 08/30/2016 Overview (11/12/2016): LUNDEBRG (dyspnea on exertion) Palpitations 08/30/2016 Overview (11/12/2016): [...] 12/26/2018 Assessment & Plan (10/04/2018 9:33 PM SALES AND MARKETING ANALYST): Rapid flu in office was negative as [...] Department Care Team Description 08/31/2024 10:30 AM SALES AND MARKETING ANALYST Therapy [facility] [address] [place] [address] Advanced Medicine 6th [place] [address] [place] [address] Mimi Coelho DPT 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) 08/24/2024 11:30 AM SALES AND MARKETING ANALYST Therapy [facility] [address] [place] [address] 6th [place] [address] [place] [address] Mimi Coelho DPT 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, right (Primary Dx); Radial sensory nerve injury, right, subsequent encounter 08/10/2024 11:30 AM SALES AND MARKETING ANALYST Therapy [facility] Physical [address] 6th [place] [address] [place] [address] Mimi Coelho DPT 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) 08/02/2024 Orders Only [facility] Surgery [address] [place] [address] 6th [place] [address] [place] [address] Telma Frost MD 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) 07/30/2024 11:30 AM SALES AND MARKETING ANALYST Therapy [facility] Physical [address] [place] [address] [place] [address] Aaliyah Koenig DPT 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, right (Primary Dx); Radial sensory nerve injury, right, subsequent encounter 07/19/2024 10:15 AM SALES AND MARKETING ANALYST Office Visit [facility] Cardiology [address] [facility] [address] [place] [address] Chase Ace MD Nonrheumatic aortic valve insufficiency (Primary Dx); Ventricular premature beats; Mixed hyperlipidemia; Essential hypertension 07/17/2024 2:00 PM SALES AND MARKETING ANALYST Therapy [address] [place] [address] [place] [address] Aaliyah Koenig DPT 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, right (Primary Dx) 07/10/2024 11:30 AM SALES AND MARKETING ANALYST Therapy [facility] Physical [address] 6th [place] [address] [place] [address] Mimi Coelho DPT 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, right (Primary Dx); Radial sensory nerve injury, right, subsequent encounter 07/04/2024 1:00 PM SALES AND MARKETING ANALYST Therapy [facility] Physical [address] 6th [place] [address] [place] [address] Aaliyah Koenig DPT 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, right (Primary Dx) 07/02/2024 Orders [place] [address] Unknown, Notinfile 06/29/2024 11:30 AM SALES AND MARKETING ANALYST Therapy [facility] Therapy [facility] [address] [place] [address] [place] [address] Mimi Coelho DPT 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, right (Primary Dx); Radial sensory nerve injury, right, subsequent encounter 06/22/2024 Telephone [facility] [address] [place] [address] Aaliyah Koenig DPT return call 06/18/2024 11:30 AM SALES AND MARKETING ANALYST Therapy [facility] [address] [place] [address] [place] [address] Aaliyah Koenig DPT 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, right (Primary Dx); Radial sensory nerve injury, right, subsequent encounter 06/16/2024 Plan of Care Documentation [facility] [address] [place] [address] 06/15/2024 11:30 AM SALES AND MARKETING ANALYST Therapy [facility] Physical [place] [address] [place] [address] Mimi Coelho, AVELINO 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 Hx Other Medical On [place] Anxiety disorder Anxiety Hx Other Medical Back [...] on file Legal Sex Female 7:06 AM SALES AND MARKETING ANALYST Gender Identity Female 06/12/2021 1:30 PM CDT Sexual Orientation Not on file Obstetrics History Last Filed Vital Signs Vital Sign Reading Time Taken Comments Blood Pressure 104/60 07/19/2024 10:29 AM SALES AND MARKETING ANALYST Pulse 70 07/19/2024 10:29 AM SALES AND MARKETING ANALYST Temperature 37.2 ??C (98.9 ??F) 03/22/2019 1:09 PM CD T Respiratory Rate 18 03/22/2019 1:09 PM CDT Oxygen Saturation 97% 07/19/2024 10:29 AM SALES AND MARKETING ANALYST Inhaled Oxygen Concentration - - Weight 70.8 kg (156 lb) 07/19/2024 10:29 AM SALES AND MARKETING ANALYST Height 157.5 cm (5' 2 ) 07/19/2024 10:29 AM SALES AND MARKETING ANALYST Body Mass Index 28.53 07/19/2024 10:29 AM SALES AND MARKETING ANALYST Plan of Treatment Health Maintenance Due Date [...] SURGICAL PATHOLOGY Routine 07/02/2024 4: 10 PM SALES AND MARKETING ANALYST MAMMOGRAPHY Routine 12/06/2018 COLONOSCOPY Routine 03/19/2013 8:29 AM CDT DEXA SCAN Routine 12/20/2008 from Last 3 Months or Most Recently Relevant to Health Maintenance Results * Surgical pathology (07/02/2024 4:10 PM SALES AND MARKETING ANALYST) Skin, shave biopsy 07/02/2024 4:10 PM SALES AND MARKETING ANALYST 07/04/2024 7:03 AM SALES AND MARKETING ANALYST Narrative 07/09/2024 1:48 PM SALES AND MARKETING ANALYST [facility] results best viewed via link to PDF [facility] [address] [place] [address] Tomasa., ??[address] [place] [address] ? [email or web address] Note to Patients: ??This report may [...] ??07/09/2024 ? Submitting Physician Information: Pilar Renner, [facility], [address] [place] [address] ??[id number], ? DERMATOPATHOLOGY REPORT RESULTS ?? DIAGNOSIS: SKIN, [...] time of procedure. dh/mxf Clerical Data A; 43534 The characteristics of special, immunohistochemical, and immunofluorescence stains and in-situ hybridization tests performed by the [facility] were deemed acceptable in ongoing fiberglass quality technician measures and in compliance with regulations drawn from the Clinical Laboratory Improvement Act vj7783 (CLIA '88). Control reactions for all stains performed were deemed adequate and appropriate by a pathologist prior to evaluation of patient tissue. Some diagnoses were rendered with the assistance of laboratory-developed tests utilizing analyte-specific reagents; the performance characteristic of these tests were determined by [facility] and are not cleared or approved by the [place] Food an Drug administration. Laboratory developed test may only be performed in a facility that is certified by the [facility] as a high-complexity laboratory under CLIA '88. These tests are used for clinical purposes and are not investigational. Notinfile Unknown LAB PATHOLOGY ORDERABLES Final Result * MAMMOGRAPHY (12/06/2018) Mammogram Normal Historical Provider HEALTH MAINTENANCE Final Result * COLONOSCOPY (03/19/2013 8:29 AM CDT) Pathologist [facility] Colonoscopy Normal Result [facility] Historical Provider HEALTH MAINTENANCE Final Result * DEXA SCAN (12/20/2008) Pathologist [facility] DEXA Scan Unknown Historical Provider HEALTH MAINTENANCE Final Result from Last 3 Months or Most Recently Relevant to Health Maintenance Insurance [facility] [employer] OPEN ACCESS [employer] OPEN ACCESS Care Teams Operations Superintendent Relationship Specialty Start Date End Date Sara Vela MD [address] [facility] [address] [place] [address] PCP - General Family Practice 02/27/24 Augustin Goodson MD Referring Physician Nephrology 03/07/18 Leon Oneill MD [address] [facility] [address] [place] [address] Referring Physician Hematology 03/07/18 Rick Rivas MD [address] [facility] [address] [place] [address] Referring Physician Rheumatology 03/07/18 Wilian Sultana MD [address] [facility] [address] [facility] 3 [place] [address] Referring Physician Neurology 03/07/18 Renetta Sarabia MD [address] [place] [address] Referring Physician Family Practice 12/27/19 Prudnece Gaines MD [address] [facility] 22 [place], [place] [id number] Referring Physician Plastic Surgery 04/05/24
--- OUTSIDE RECORDS SUMMARY | 2024-09-05 16:19 | XMS_ITS | CONTINUITY OF CARE DOCUMENT ---
Author Name dinorah copeland Address Unknown Organization [facility] Address [address] [facility] [address] [place] [address] Phone [phone] Care Team Providers Care Technology Intern Name Role Phone Gregorio Parra MD Unavailable JAIME SOARES MD Unavailable JAIME SOARES MD Unavailable PROBLEMS Condition Status Date Provider Notes BACK [...] In-person encounter Office Visit Gregorio Parra MD [facility] VITAL SIGNS Date Observation Value Provider [...] Interpretation Location 1 calcium, serum 10.1 mg/dL [facility] 1 blood glucose, fasting 122 mg/dL [facility] 1 creatinine, serum 1.28 mg/dL [facility] 1 urea nitrogen, blood 16 mg/dL [facility] 1 carbon dioxide, serum, total 26.3 mmol/L [facility] 1 chloride, serum 107 mmol/L [facility] 1 potassium, serum 4.1 mmol/L [facility] 1 sodium, serum 141 mmol/L [facility] HISTORY OF MEDICATION USE Medication Status Instructions [...] Payer name Policy type / Coverage type [place] red green party ID [place] MED[place] Medicare [id number] TREATMENT PLAN Date Name Performer FU test [...]
--- OUTSIDE RECORDS SUMMARY | 2024-09-05 16:19 | XMS_ITS | Clinical Summary ---
Author Organization [facility] Address [address] [facility] [place] [address] Care Team Providers Care Electron Gun Inspector Name Role Phone Renetta Sarabia MD [...] tongue Continuous as needed. 09/29/19 19 Active Ranier-3 Fatty Acids 1,000 mg Capsule Take 1 [...] by mouth. Active naloxone (NARCAN) 4 mg/spray [place], Non-Aerosol EMERGENCY USE ONLY: Administer 1 spray [...] STL ABSTRACTION Provider, Abstract 07/20/2024 Orders Only [facility] Oncology and Hematology - [place] [address] [place] [address] Leon Oneill MD 07/19/2024 3:30 PM PHARMACOLOGY TEACHER Office Visit [facility] Oncology and Hematology - [place] [address] [place] [address] Leon Oneill MD Hypogammaglobulinemia (Primary Dx) 07/17/2024 Orders Only [facility] Oncology and Hematology - [place] [address] [place] [address] Leon Oneill MD 07/13/2024 Orders Only [facility] Oncology and Hematology - [place] [address] [place] [address] Leon Oneill MD 07/11/2024 Abstract [facility] Oncology and Hematology - [place] [address] [place] [address] Leon Oneill MD 06/06/2024 External Device Data [...] Comments Blood Pressure 121/77 07/19/2024 3:24 PM PHARMACOLOGY TEACHER Pulse 75 07/19/2024 3:24 PM PHARMACOLOGY TEACHER Temperature 36.1 ??C (97 ??F) 07/19/2024 3:24 PM PHARMACOLOGY TEACHER Respiratory Rate 16 07/19/2024 3:24 PM PHARMACOLOGY TEACHER Oxygen Saturation 96% 07/19/2024 3:24 PM PHARMACOLOGY TEACHER Inhaled Oxygen Concentration - - Weight 70.8 kg (156 lb) 07/19/2024 3:24 PM PHARMACOLOGY TEACHER Height 167.6 cm (5' 6 ) 07/08/2021 9:25 AM PHARMACOLOGY TEACHER Body Mass Index 25.18 07/08/2021 9:25 AM PHARMACOLOGY TEACHER Plan of Treatment Upcoming Encounters Date Type Department Care Team (Late st Contact Info) Description 07/22/2025 1:00 PM PHARMACOLOGY TEACHER Office Visit [facility] Oncology and Hematology [facility] [address] [facility] [address] [place] [address] Leon Oneill MD [address] [facility] [address] [place] [address] Health Maintenance Due Date Last [...] PROTEIN ELECTROPHORESIS, CSF Routine 07/19/2024 1:55 PM PHARMACOLOGY TEACHER KAPPA/LAMBDA LIGHT CHAINS Routine 2023 2:33 PM PHARMACOLOGY TEACHER COMPREHENSIVE METABOLIC PANEL Routine 07/11/2024 1:11 PM PHARMACOLOGY TEACHER CBC WITH DIFFERENTIAL Routine 07/11/2024 11:32 AM PHARMACOLOGY TEACHER from Last 3 Months Results * PROTEIN ELECTROPHORESIS, CSF (07/19/2024 1:55 PM PHARMACOLOGY TEACHER) Cerebrospinal fluid CEREBROSPINAL FLUID / Unknown us Leon Oneill MD BODY FLUIDS AND STOOLS Final Re sult * KAPPA/LAMBDA, FREE LIGHT CHAINS (07/11/2024 2:33 PM PHARMACOLOGY TEACHER) Blood us Leon Oneill MD CHEMISTRY ORDERABLES Final Resu lt * COMPREHENSIVE METABOLIC PANEL (07/11/2024 1:11 PM PHARMACOLOGY TEACHER) Blood us Leon Oneill MD CHEMISTRY ORDERABLES Final Resu lt * CBC WITH DIFFERENTIAL (07/11/2024 11:32 AM PHARMACOLOGY TEACHER) Blood us Leon Oneill MD HEMATOLOGY ORDERABLES Final Res ult from Last 3 Months Insurance AETNA O [facility] [employer] PPO A[employer] PPO M[employer] PPO Care Teams Electron Gun Inspector Relationship Specialty Start Date End Date Renetta Sarabia MD PCP - General Family Practice 12/21/19
--- OUTSIDE RECORDS SUMMARY | 2024-09-05 16:19 | XMS_ITS | Clinical Summary ---
Author Organization [facility] Address [address] [place] [phone] Phone Care Team Providers Care Conventional Machinist Name Role Phone Sara Vela MD Primary Care Provider Allergies Active Allergy Reactions Criticality Noted Date Comments Amitriptyline Other (see comments) 08/31/2021 [place] drugged up a lot and felt strange [...] MG tablet 1 prn 0 05/23/2017 Active Hopkins-3 1000 MG capsule Take 1 capsule by [...] HERPES FLARE UP 07/08/2021 Active nystatin (MYCOSTATIN) 652664 UNIT/ML suspension ADMININSTER (5ML) EVERY 6 HOURS 1/2 OF DOSE IN EACH SIDE OF THE MOUTH. 07/07/2021 Active mirtazapine (REMERON) 15 MG tablet TAKE 1/2 (ONE-HALF) TABLET BY MOUTH TWICE DAILY 02/17/2022 Active dgkehfhn-kzhwasmng-m ydrocortisone (CORTISPORIN) 3.5-32591-6 otic suspension INSTILL 4 DROPS INTO LEFT [...] Influenza Vaccine (#1) 2024 05/22/2020 Care Teams Conventional Machinist Relationship Specialty Start Date End Date Sara Vela MD [address] [place] [address] PCP - General Internal Medicine 08/24/21
--- OUTSIDE RECORDS SUMMARY | 2024-09-05 16:19 | XMS_ITS | Clinical Summary ---
Author Organization [facility] Address [facility]. [place], [place] [address] [place] [address] Care Team Providers Care Paper Cone Machine Tender Name Role Phone Sara Vela MD Primary Care Provider Gin oTth MD Unavailable [phone] Augustin Goodson MD Unavailable [phone] Darnell Bryant MD Unavailable [phone] Leon Oneill MD Unavailable [phone] Rick Rivas MD Unavailable Allergies Active Allergy Reactions Criticality Noted Date Comments Tape Rash,Other (see comment) High 08/31/2021 Says the EKG leads being left on her skin caused 3rd degree nova of the skin. Amitriptyline Other (see comment) 08/31/2021 [place] drugged up a lot and felt strange [...] Other (Age a round January 2021) had GA, HTN, poorly controlled diabetes, in sleep with GA. patient raised him when he was a [...] AM CDT Pulse 63 10/13/2021 11:17 AM SUPERVISOR ALTERATION WORKROOM Temperature 36.4 ??C (97.6 ??F) 10/13/2021 1 1:17 AM SUPERVISOR ALTERATION WORKROOM Respiratory Rate 18 10/13/2021 11:1 7 AM SUPERVISOR ALTERATION WORKROOM Oxygen Saturation 99% 10/13/2021 11: 17 AM SUPERVISOR ALTERATION WORKROOM Inhaled Oxygen Concentration - - Weight 71.1 [...] age to complete this topic Insurance AET[employer] [place] OPEN ACCESS [facility] Care Teams Paper Cone Machine Tender Relationship Specialty Start Date End Date Sara Vela MD [address] [place] [address] PCP - General FAMILY PRACTICE 07/07/21 Gin Toth MD [address] [facility] [address] [place], [place] [id number] CARDIOVASCULAR DISEASE 08/31/21 Augustin Goodson MD [address] [facility] [address] [place] [address] Referring Physician NEPHROLOGY 08/31/21 Darnell Bryant MD [facility] [address] [facility] [place], [place] [id number] Psychiatry 08/31/21 Leon Oneill MD [address] [facility] [address] [place] [address] HEMATOLOGY/ONCOLOGY 08/31/21 Rick Rivas MD [address] [place] [address] Referring Physician RHEUMATOLOGY 08/31/21
--- OUTSIDE RECORDS SUMMARY | 2024-09-05 16:19 | XMS_ITS | Encounter Summary ---
Author Organization [facility] Address [address] [facility] [place] [address] Phone Care Team Providers Care Senior Caregiver Name Role Phone Wilian Sultana MD Unavailable [phone] Darnell Bryant MD Unavailable Milly Celaya APRN, BABBITT SPINNER Primary Care Provider Unavailable Encounter Details Date Type Department Care Team (Late st Contact Info) Description 02/02/2023 Behavioral Health Patient Survey [facility] Services 1 [place] [address] Justyn Miranda, [facility] [address] [place] [address] Social History Tobacco Use Types Packs/Day Years [...] st Contact Info) Description 09/19/2024 9:30 AM BOTTOM TURNER Telemedicine [facility] Behavioral Health Services [address] [place] [address] Justyn Miranda LCSW [address] [place] [address] Discharge Disposition: Discharged to home or Selfcare documented as of this encounter Goals Goal Patient Goal Type Associated Problems Recent Progress Patient-Stated? Author I need to be able to cope better with my grief and bitterness towards my family within the next six months Behavioral Health On track(2024 9:24 AM BOTTOM TURNER) Yes Justyn Miranda LCSW Note: Goal Reviewed today with: patient Readiness to change: Ready to change Department associated with goal: [facility] Steps to achieve goal: Patient to be counseled on coping with grief, during her 45 min individual therapy sessions, 2-3 times per month Patient to be counseled on aspects of healthy self-care, during her 45 min individual sessions, 2-3 times per month Behavioral Health Behavioral Health On track(2024 9:24 AM BOTTOM TURNER) No Justyn Miranda LCSW Note: Goal: Patient will be able to report improved mood/coping ability for family stressors/discord, to an acceptable level within the next six months Goal Reviewed today with: patient Readiness to change: Ready to change Department associated with goal: [facility] Steps to achieve [...] as of this encounter Care Teams Senior Caregiver Relationship Specialty Start Date End Date Milly Celaya, REFRIGERATOR ROOM CLERK, BABBITT SPINNER [address] [place] [address] PCP - General Obstetrics & Gynecology 05/23/18 Wilian Sultana MD Consulting Physician Neurology 08/11/16 06/24/24 Dranell Bryant MD [place] [address] [place] [address] Psychiatry 03/16/18 documented as of this encounter
--- OUTSIDE RECORDS SUMMARY | 2024-09-05 16:20 | XMS_ITS | Encounter Summary ---
Author Organization [facility] Address [address] [facility] [place] [address] Phone Care Team Providers Care City Assessor Name Role Phone Wilian Sultana MD Unavailable Darnell Bryant MD Unavailable Milly Celaya APRN, MEDICARE INSURANCE SPECIALIST Primary Care Provider Unavailable Encounter Details Date Type Department Care Team (Late st Contact Info) Description 08/31/2023 [facility] 1 [place] [address] Justyn Miranda, FISCAL MANAGER [address] [place] [address] Social History Tobacco Use Types Packs/Day Years [...] st Contact Info) Description 09/19/2024 9:30 AM FENCE MAKER [facility]icine [facility] 1 [place] [address] Justyn Miranda, FISCAL MANAGER [address] [place] [address] Discharge Disposition: Discharged to home or Selfcare documented as of this encounter Goals Goal Patient Goal Type Associated Problems Recent Progress Patient-Stated? Author I need to be able to cope better with my grief and bitterness towards my family within the next six months Behavioral Health On track(2024 9:24 AM FENCE MAKER) Yes Justyn Miranda LCSW Note: Goal Reviewed today with: patient Readiness to change: Ready to change Department associated with goal: [facility] Steps to achieve goal: Patient to be counseled on coping with grief, during her 45 min individual therapy sessions, 2-3 times per month Patient to be counseled on aspects of healthy self-care, during her 45 min individual sessions, 2-3 times per month Behavioral Health Behavioral Health On track(2024 9:24 AM FENCE MAKER) No Justyn Miranda LCSW Note: Goal: Patient will be able to report improved mood/coping ability for family stressors/discord, to an acceptable level within the next six months Goal Reviewed today with: patient Readiness to change: Ready to change Department associated with goal: [facility] Steps to achieve [...] documented as of this encounter Care Teams City Assessor Relationship Specialty Start Date End Date Milly Celaya, ASSISTANT PROFESSOR OF ENGLISH, MEDICARE INSURANCE SPECIALIST JamieA [address] [facility] [address] PCP - General Obstetrics & Gynecology 05/23/18 Wilian Sultana MD Consulting Physician Neurology 08/11/16 06/24/24 Darnell Bryant MD [address] [facility] [facility], [place] [id number] Psychiatry 03/16/18 documented as of this encounter
--- OUTSIDE RECORDS SUMMARY | 2024-09-05 16:20 | XMS_ITS | Encounter Summary ---
Author Organization [facility] Address [address] [facility] [place] [address] Phone Care Team Providers Care Litigation Coordinator Name Role Phone Wilian Sultana MD Unavailable Darnell Bryant MD Unavailable Milly Celaya APRN, LAP WINDING MACHINE OPERATOR Primary Care Provider Unavailable Encounter Details Date Type Department Care Team (Late st Contact Info) Description 03/11/2023 Behavioral Health [facility] 1 [place] [address] Justyn Miranda, [facility] [address] [place] [address] Social History Tobacco Use Types Packs/Day Years [...] st Contact Info) Description 09/19/2024 9:30 AM FOUR ROLL CALENDER OPERATOR Telemedicine [facility] Behavior[facility] Health Services [address] [place] [address] Justyn Miranda LCSW [address] [place] [address] Discharge Disposition: Discharged to home or Selfcare documented as of this encounter Goals Goal Patient Goal Type Associated Problems Recent Progress Patient-Stated? Author I need to be able to cope better with my grief and bitterness towards my family within the next six months Behavioral Health On track(2024 9:24 AM FOUR ROLL CALENDER OPERATOR) Yes Justyn Miranda LCSW Note: Goal Reviewed today with: patient Readiness to change: Ready to change Department associated with goal: [facility] Steps to achieve goal: Patient to be counseled on coping with grief, during her 45 min individual therapy sessions, 2-3 times per month Patient to be counseled on aspects of healthy self-care, during her 45 min individual sessions, 2-3 times per month Behavioral Health Behavioral Health On track(2024 9:24 AM FOUR ROLL CALENDER OPERATOR) No Justyn Miranda LCSW Note: Goal: Patient will be able to report improved mood/coping ability for family stressors/discord, to an acceptable level within the next six months Goal Reviewed today with: patient Readiness to change: Ready to change Department associated with goal: [facility] Steps to achieve [...] documented as of this encounter Care Teams Litigation Coordinator Relationship Specialty Start Date End Date Milly Celaya, REAL ESTATE INSPECTOR, LAP WINDING MACHINE OPERATOR [address] [place] [address] PCP - General Obstetrics & Gynecology 05/23/18 Wilian Sultana MD Consulting Physician Neurology 08/11/16 06/24/24 Darnell Bryant MD [place] [address] [place] [address] Psychiatry 03/16/18 documented as of this encounter
[2024-09-05 17:46] LABS: Alanine Aminotransferase 39 U/L (6-35); Albumin Level 4.4 g/dL (3.5-5.1); Alkaline Phosphatase 81 U/L (38-126); Anion Gap 11 mmol/L (4-12); Aspartate Amino Transferase 40 U/L (14-36); Bilirubin,Total 0.5 mg/dL (0.2-1.3); Blood Urea Nitrogen 14 mg/dL (7-17); CRP 2.6 mg/dL (<1.0); Calcium 9.9 mg/dL (8.4-10.2); Carbon Dioxide 25 mmol/L (22-30); Chloride 105 mmol/L (98-107); Estimated Glomerular Filt Rate 40; Glucose 104 mg/dL (65-110); Potassium 4.2 mmol/L (3.4-5.0); Sodium 141 mmol/L (137-145)
== END 2024-09-05 15:35 | disposition home or self-care (01) ==
LOC: ANHLAB 15:34
PROVIDERS: PCP Family Medicine; Visit Provider Nurse Practitioner
DX: R19.4 Change in bowel habit (principal); R10.32 Left lower quadrant pain
CPT/HCPCS: 36415; 80053; 83993; 84443; 85027; 86140; 87045; 87269; 87427; 87449; 87493

== ENCOUNTER 2024-09-06 09:59 | Outpatient (CLI) | payer OTHER, MEDICARE, SELFPAY ==
--- NOTE | ~2024-09-06 | CT_ITS ---
EXAMINATION: CT abdomen pelvis wo con DATE: 09/06/2024 10:18 INDICATION: Left lower quadrant abdominal pain. TECHNIQUE: Computed tomography (CT) of the abdomen and pelvis was performed without intravenous contr ast. Automated exposure control and iterative reconstruction technique were employed. The dose-length product was 502.16 mGy-cm. COMPARISON: CT abdomen and pelvis 08/28/24 FINDINGS: The visualized portions of the lung bases demonstrate mild atelectasis. No pleural effusion . The heart size is normal. No pericardial effusion. There is diffuse hepatic steatosis. There are ch anges of cholecystectomy. The spleen, pancreas, adrenal glands, and kidneys are normal. There is dive rticulosis of the colon without evidence of diverticulitis. There are no dilated loops of bowel. The appendix is not visualized. There are no pathologically enlarged lymph nodes. There is no free intrap eritoneal fluid. There is mild lumbar spondylosis. IMPRESSION: 1. Diffuse hepatic steatosis. Reviewed, dictated and finalized at location A. ER REPAIR SUPERVISOR
--- OUTSIDE RECORDS SUMMARY | 2024-09-06 10:45 | XMS_ITS | Encounter Summary ---
Author Organization [facility] Address [address] [facility] [place] [address] Phone Care Team Providers Care Waiter/Waitress Take Out Name Role Phone Wilian Sultana MD Unavailable Darnell Bryant MD Unavailable Milly Celaya APRN, OPTICAL INSTRUMENTS SUPERVISOR Primary Care Provider Unavailable Encounter Details Date Type Department Care Team (Late st Contact Info) Description 06/22/2024 [facility] 1 [place] [address] Justyn Miranda, PHOTOENGRAVING HELPER [address] [place] [address] Social History Tobacco Use Types Packs/Day Years [...] st Contact Info) Description 09/19/2024 9:30 AM DIPPER AND BAKER [facility]medicine [facility] 1 [place] [address] Justyn Miranda, PHOTOENGRAVING HELPER [address] [place] [address] Discharge Disposition: Discharged to home or Selfcare documented as of this encounter Goals Goal Patient Goal Type Associated Problems Recent Progress Patient-Stated? Author I need to be able to cope better with my grief and bitterness towards my family within the next six months Behavioral Health On track(2024 9:24 AM DIPPER AND BAKER) Yes Justyn Miranda LCSW Note: Goal Reviewed today with: patient Readiness to change: Ready to change Department associated with goal: [facility] Steps to achieve goal: Patient to be counseled on coping with grief, during her 45 min individual therapy sessions, 2-3 times per month Patient to be counseled on aspects of healthy self-care, during her 45 min individual sessions, 2-3 times per month Behavioral Health Behavioral Health On track(2024 9:24 AM DIPPER AND BAKER) No Justyn Miranda LCSW Note: Goal: Patient will be able to report improved mood/coping ability for family stressors/discord, to an acceptable level within the next six months Goal Reviewed today with: patient Readiness to change: Ready to change Department associated with goal: [facility] Steps to achieve goal: [...] documented as of this encounter Care Teams Waiter/Waitress Take Out Relationship Specialty Start Date End Date Milly Celaya, CEMENT CAR DUMPER, OPTICAL INSTRUMENTS SUPERVISOR JamieA Salvador [facility] [place] [address] PCP - General Obstetrics & Gynecology 05/23/18 Wilian Sultana MD Consulting Physician Neurology 08/11/16 06/24/24 Darnell Bryant MD [address] [facility], [place] [id number] Psychiatry 03/16/18 documented as of this encounter
--- OUTSIDE RECORDS SUMMARY | 2024-09-06 10:45 | XMS_ITS | Referral Summary ---
Author Organization [facility] Address [address] [place] [address] Care Team Providers Care Road Design Engineer Name Role Phone Sara Vela MD Primary Care Provider Source Comments [facility],non-owned Affiliates and Associated Physician Practices is amultiple site organization consisting of ambulatory clinics and hospital sitesin [place], [place], [place] and [place]. This disclosure is being madepursuant to the Care Everywhere program and may not contain all information available regarding this patient. Last updated 18.[facility] Allergies Active Allergy Reactions Criticality Noted Date [...] Comments Blood Pressure 112/62 06/23/2017 4:02 PM ALARM SIGNAL OPERATOR Pulse 55 06/23/2017 4:02 PM ALARM SIGNAL OPERATOR Temperature 36.8 ??C (98.2 ??F) 06/23/2017 4:02 PM CS T Respiratory Rate 16 06/23/2017 4:02 PM ALARM SIGNAL OPERATOR Oxygen Saturation - - Inhaled Oxygen Concentration - - Weight 67.1 kg (148 lb) 06/23/2017 4:02 PM ALARM SIGNAL OPERATOR Height 157.5 cm (5' 2 ) 06/23/2017 4:02 PM ALARM SIGNAL OPERATOR Body Mass Index 27.07 06/23/2017 4:02 PM ALARM SIGNAL OPERATOR Plan of Treatment Not on file Care Teams Road Design Engineer Relationship Specialty Start Date End Date Sara Vela MD [address] [place] [address] PCP - General 12/06/22
--- OUTSIDE RECORDS SUMMARY | 2024-09-06 10:45 | XMS_ITS | Encounter Summary ---
Author Organization [facility] Address [address] [place] [address] Care Team Providers Care Engraver Signature Name Role Phone Renetta Sarabia MD Primary [...] st Contact Info) Description 07/22/2025 1:00 PM BEATER AND PULPER FEEDER Office Visit [facility] Oncology and Hematology - [place] [address] [place] [address] [facility] [address] [place] [place] [address] Leon Oneill MD [address] [facility] [address] [place] [address] documented as of this encounter Visit Diagnoses Not on filedocumented in this encounter Care Teams Engraver Signature Relationship Specialty Start Date End Date Renetta Sarabia MD PCP - General Family Practice 12/21/19 documented as of this encounter
--- OUTSIDE RECORDS SUMMARY | 2024-09-06 10:45 | XMS_ITS | Encounter Summary ---
Author Organization [facility] Address [address] [facility] [place] [address] Phone Care Team Providers Care Radio Mechanic Name Role Phone Wilian Sultana MD Unavailable [phone] Darnell Bryant MD Unavailable Milly Celaya APRN, MANAGER OF IT Primary Care Provider Unavailable Encounter Details Date Type Department Care Team (Late st Contact Info) Description 12/20/2023 [facility] 1 [place] [address] Justyn Miranda, POWER ORIGINATOR [address] [place] [address] Social History Tobacco Use Types Packs/Day Years [...] st Contact Info) Description 09/19/2024 9:30 AM CIRCUS TRAINER [facility]medicine [facility] 1 [place] [address] Justyn Miranda, POWER ORIGINATOR [address] [place] [address] Discharge Disposition: Discharged to home or Selfcare documented as of this encounter Goals Goal Patient Goal Type Associated Problems Recent Progress Patient-Stated? Author I need to be able to cope better with my grief and bitterness towards my family within the next six months Behavioral Health On track(2024 9:24 AM CIRCUS TRAINER) Yes Justyn Miranda LCSW Note: Goal Reviewed [...] Health Behavioral Health On track(2024 9:24 AM CIRCUS TRAINER) No Justyn Miranda LCSW Note: Goal: Patient [...] documented as of this encounter Care Teams Radio Mechanic Relationship Specialty Start Date End Date Milly Celaya, TEACHER OF THE SIGHT IMPAIRED, MANAGER OF IT JamieA Salvador [facility] [address] PCP - General Obstetrics & Gynecology 05/23/18 Wilian Sultana MD Consulting Physician Neurology 08/11/16 06/24/24 Darnell Bryant MD [address] [facility] [place] [id number] Psychiatry 03/16/18 documented as of this encounter
--- OUTSIDE RECORDS SUMMARY | 2024-09-06 10:45 | XMS_ITS | Encounter Summary ---
Author Organization [facility] Address [address] [facility] [place] [address] Phone Care Team Providers Care Spring Coiler Hand Name Role Phone Wilian Sultana MD Unavailable Darnell Bryant MD Unavailable Milly Celaya APRN, EMERGENCY SERVICES DIRECTOR Primary Care Provider Unavailable Encounter Details Date Type Department Care Team (Late st Contact Info) Description 11/08/2023 Behavior[facility] 1 [place] [address] Justyn Miranda, FIRST LINE PRODUCTION SUPERVISOR [address] [place] [address] Social History Tobacco Use Types Packs/Day Years [...] st Contact Info) Description 09/19/2024 9:30 AM LINK CUTTER [facility]medicine [facility] 1 [place] [address] Justyn Miranda, FIRST LINE PRODUCTION SUPERVISOR [address] [place] [address] Discharge Disposition: Discharged to home or Selfcare documented as of this encounter Goals Goal Patient Goal Type Associated Problems Recent Progress Patient-Stated? Author I need to be able to cope better with my grief and bitterness towards my family within the next six months Behavioral Health On track(2024 9:24 AM LINK CUTTER) Yes Justyn Miranda LCSW Note: Goal Reviewed today with: patient Readiness to change: Ready to change Department associated with goal: [facility] Steps to achieve goal: Patient to be counseled on coping with grief, during her 45 min individual therapy sessions, 2-3 times per month Patient to be counseled on aspects of healthy self-care, during her 45 min individual sessions, 2-3 times per month Behavioral Health Behavioral Health On track(2024 9:24 AM LINK CUTTER) No Justyn Miranda LCSW Note: Goal: Patient will be able to report improved mood/coping ability for family stressors/discord, to an acceptable level within the next six months Goal Reviewed today with: patient Readiness to change: Ready to change Department associated with goal: [facility] Steps to achieve [...] documented as of this encounter Care Teams Spring Coiler Hand Relationship Specialty Start Date End Date Milly Celaya, PRACTICAL MINISTRIES PROFESSOR, EMERGENCY SERVICES DIRECTOR JamieA Salvador [facility] [place] [address] PCP - General Obstetrics & Gynecology 05/23/18 Wilian Sultana MD Consulting Physician Neurology 08/11/16 06/24/24 Darnell Bryant MD [address] [facility], [place] [id number] Psychiatry 03/16/18 documented as of this encounter
--- OUTSIDE RECORDS SUMMARY | 2024-09-06 10:45 | XMS_ITS | Encounter Summary ---
Author Organization [facility] Address [address] [place] [address] Phone Care Team Providers Care Offset Lithographic Press Operator Name Role Phone Darnell Bryant MD Unavailable Milly Celaya APRN, CATTLE CARE WORKER Primary Care Provider Unavailable Encounter Details Date Type Department Care Team (Late st Contact Info) Description 08/06/2024 Behavioral [facility] 1 [place] [address] Justyn Miranda, BOWLING PIN REFINISHER [address] [place] [address] Social History Tobacco Use Types Packs/Day Years [...] st Contact Info) Description 09/19/2024 9:30 AM FLATTENING PRESS OPERATOR [facility]medicine [facility] 1 [place] [phone] Justyn Miranda, BOWLING PIN REFINISHER [address] [place] [address] Discharge Disposition: Discharged to home or Selfcare documented as of this encounter Goals Goal Patient Goal Type Associated Problems Recent Progress Patient-Stated? Author I need to be able to cope better with my grief and bitterness towards my family within the next six months Behavioral Health On track(2024 9:24 AM FLATTENING PRESS OPERATOR) Yes Justyn Miranda LCSW Note: Goal [...] Health Behavioral Health On track(2024 9:24 AM FLATTENING PRESS OPERATOR) No Justyn Miranda LCSW Note: Goal: [...] documented as of this encounter Care Teams Offset Lithographic Press Operator Relationship Specialty Start Date End Date Milly Celaya, MILL CONTROLLER, CATTLE CARE WORKER [address] [place] [address] PCP - General Obstetrics & Gynecology 05/23/18 Darnell Bryant MD [address] [address] Psychiatry 03/16/18 documented as of this encounter
--- OUTSIDE RECORDS SUMMARY | 2024-09-06 10:45 | XMS_ITS | Clinical Summary ---
Author Organization [facility] Address [address] [facility] [place] [address] Phone Care Team Providers Care Slackline Operator Name Role Phone Darnell Bryant MD Unavailable Milly Celaya APRN, CAVITY PUMP OPERATOR Primary Care Provider Unavailable Allergies Active Allergy [...] Department Care Team Description 08/31/2024 9:15 AM STEAM PRESS TENDER Telemedicine [facility] Behavioral Health Services 1 [place] [address] Justyn Miranda LCSW Generalized anxiety disorder (Primary Dx); Panic disorder Discharge Disposition: Discharged to home or Selfcare 08/31/2024 Travel 08/27/2024 Travel 08/06/2024 8:30 AM STEAM PRESS TENDER Telemedicine [facility] Behavioral Health Services 1 [place] [address] Justyn Miranda LCSW Generalized anxiety disorder (Primary Dx); Panic disorder; Adjustment disorder with mixed anxiety and depressed mood Discharge Disposition: Discharged to home or Selfcare 08/06/2024 Behavioral Health Patient Survey [facility] Behavioral Health Services 1 [place] [address] Justyn Miranda LCSW 08/06/2024 Travel 07/18/2024 8:30 AM STEAM PRESS TENDER [facility]medicine [facility] 1 [place] [address] Justyn Miranda LCSW Generalized anxiety disorder (Primary Dx); Panic disorder; Adjustment disorder with mixed anxiety and depressed mood Discharge Disposition: Discharged to home or Selfcare 07/18/2024 Travel 06/22/2024 8:30 AM STEAM PRESS TENDER Telemedicine [facility] Behavioral Health Services 1 [place] [address] Justyn Miranda LCSW Generalized anxiety disorder (Primary Dx); Panic disorder; Adjustment disorder with mixed anxiety and depressed mood Discharge Disposition: Discharged to home or Selfcare 06/22/2024 Behavioral Health Patient Survey [facility] Behavioral Health Services 1 [place] [address] Justyn Miranda LCSW 06/22/2024 Travel 06/07/2024 8:30 AM CDT Telemedicine [facility] Behavioral Health Services 1 [place] [address] Justyn Miranda LCSW Generalized anxiety disorder (Primary [...] st Contact Info) Description 09/19/2024 9:30 AM STEAM PRESS TENDER Telemedicine [facility] Behavioral Health Services 1 [place] [address] Justyn Miranda LCSW [address] [facility] [place] [address] Discharge Disposition: Discharged to home or Selfcare [...] months Behavioral Health On track(2024 9:24 AM STEAM PRESS TENDER) Yes Justyn Miranda, CHRISTIANO Note: Goal Reviewed today with: patient Readiness to change: Ready to change Department associated with goal: [facility] Steps to achieve goal: Patient to be counseled on coping with grief, during her 45 min individual therapy sessions, 2-3 times per month Patient to be counseled on aspects of healthy self-care, during her 45 min individual sessions, 2-3 times per month Behavioral Health Behavioral Health On track(2024 9:24 AM STEAM PRESS TENDER) Justyn Monique, CHRISTIANO Note: Goal: Patient will be able to report improved mood/coping ability for family stressors/discord, to an acceptable level within the next six months Goal Reviewed today with: patient Readiness to change: Ready to change Department associated with goal: [facility] Steps to achieve goal: Patient counseled on coping with depression, including healthy leisure interests, seeking emotional support Patient counseled on healthy communication skills/setting healthy boundaries/expectations with family members Insurance [employer] MEDICARE Care Teams Slackline Operator Relationship Specialty Start Date End Date Milly Celaya, MONUMENT INSTALLER, CAVITY PUMP OPERATOR [address] [place] [address] PCP - General Obstetrics & Gynecology 05/23/18 [place] [address] Psychiatry 03/16/18
--- OUTSIDE RECORDS SUMMARY | 2024-09-06 10:45 | XMS_ITS | Encounter Summary ---
Author Organization [facility] Address [address] [facility] [place] [address] Phone Care Team Providers Care Box Toe Maker Name Role Phone Wilian Sultana MD Unavailable [phone] Darnell Bryant MD Unavailable Milly Celaya APRN, CONTRACT LEAD Primary Care Provider Unavailable Encounter Details Date Type Department Care Team (Late st Contact Info) Description 02/02/2024 [facility] 1 [place] [address] Justyn Miranda, RETAIL SERVICE TECHNICIAN [address] [place] [address] Social History Tobacco Use Types Packs/Day Years [...] st Contact Info) Description 09/19/2024 9:30 AM BUS DRIVER [facility]medicine [facility] 1 [place] [address] Justyn Miranda, RETAIL SERVICE TECHNICIAN [address] [place] [address] Discharge Disposition: Discharged to home or Selfcare documented as of this encounter Goals Goal Patient Goal Type Associated Problems Recent Progress Patient-Stated? Author I need to be able to cope better with my grief and bitterness towards my family within the next six months Behavioral Health On track(2024 9:24 AM BUS DRIVER) Yes Justyn Miranda LCSW Note: Goal Reviewed today with: patient Readiness to change: Ready to change Department associated with goal: [facility] Steps to achieve goal: Patient to be counseled on coping with grief, during her 45 min individual therapy sessions, 2-3 times per month Patient to be counseled on aspects of healthy self-care, during her 45 min individual sessions, 2-3 times per month Behavioral Health Behavioral Health On track(2024 9:24 AM BUS DRIVER) No Justyn Miranda LCSW Note: Goal: Patient will be able to report improved mood/coping ability for family stressors/discord, to an acceptable level within the next six months Goal Reviewed today with: patient Readiness to change: Ready to change Department associated with goal: [facility] Steps to achieve goal: [...] documented as of this encounter Care Teams Box Toe Maker Relationship Specialty Start Date End Date Milly Celaya, SODA WORKER, CONTRACT LEAD JamieA Salvador [place] [address] PCP - General Obstetrics & Gynecology 05/23/18 Wilian Sultana MD Consulting Physician Neurology 08/11/16 06/24/24 Darnell Bryant MD [address] [facility], [place] [id number] Psychiatry 03/16/18 documented as of this encounter
--- OUTSIDE RECORDS SUMMARY | 2024-09-06 10:45 | XMS_ITS | Patient Health Summary ---
Author Organization [facility] Address [address] [place] [address] Care Team Providers Care Taker Off Name Role Phone Sara Vela MD Primary Care Provider Note from [facility],non-owned Affiliates and Associated Physician Practices is amultiple site organization consisting of ambulatory clinics and hospital sitesin [place], [place], [place] and [place]. This disclosure is being madepursuant to the Care Everywhere program and may not contain all information available regarding this patient. Last updated 18.[facility] Allergies * Contrast-Iodinated Agents For Ct/Other(Unknown) * [...] Comments Blood Pressure 112/62 06/23/2017 4:02 PM CARE PROFESSIONALS Pulse 55 06/23/2017 4:02 PM CARE PROFESSIONALS Temperature 36.8 ??C (98.2 ??F) 06/23/2017 4:02 PM CS T Respiratory Rate 16 06/23/2017 4:02 PM CARE PROFESSIONALS Oxygen Saturation - - Inhaled Oxygen Concentration - - Weight 67.1 kg (148 lb) 06/23/2017 4:02 PM CARE PROFESSIONALS Height 157.5 cm (5' 2 ) 06/23/2017 4:02 PM CARE PROFESSIONALS Body Mass Index 27.07 06/23/2017 4:02 PM CARE PROFESSIONALS Care Teams Taker Off Relationship Specialty Start Date End Date Sara Vela MD [address] [place] [address] PCP - General 12/06/22
--- OUTSIDE RECORDS SUMMARY | 2024-09-06 10:45 | XMS_ITS | Encounter Summary ---
Author Organization [facility] Address [address] [facility] [place] [address] Phone Care Team Providers Care Court Interpreter Name Role Phone Wilian Sultana MD Unavailable [phone] Darnell Bryant MD Unavailable Milly Celaya APRN, SMOKE JUMPER SUPERVISOR Primary Care Provider Unavailable Encounter Details Date Type Department Care Team (Late st Contact Info) Description 05/22/2024 Behavioral Health [facility] 1 [place] [address] Justyn Miranda, HOTEL MANAGER #1 [place] [address] Social History Tobacco Use Types Packs/Day Years [...] st Contact Info) Description 09/19/2024 9:30 AM FOOD SERVICES MANAGER Telemedicine [facility] 1 [place] [address] Justyn Miranda, HOTEL MANAGER [address] [place] [address] Discharge Disposition: Discharged to home or Selfcare documented as of this encounter Goals Goal Patient Goal Type Associated Problems Recent Progress Patient-Stated? Author I need to be able to cope better with my grief and bitterness towards my family within the next six months Behavioral Health On track(2024 9:24 AM FOOD SERVICES MANAGER) Yes Justyn Miranda LCSW Note: Goal [...] Health Behavioral Health On track(2024 9:24 AM FOOD SERVICES MANAGER) No Justyn Miranda LCSW Note: Goal: [...] documented as of this encounter Care Teams Court Interpreter Relationship Specialty Start Date End Date Milly Celaya, ROD FILLER, SMOKE JUMPER SUPERVISOR JamieA [place] [address] PCP - General Obstetrics & Gynecology 05/23/18 Wilian Sultana MD Consulting Physician Neurology 08/11/16 06/24/24 Darnell Bryant MD [address] [facility], [place] [id number] Psychiatry 03/16/18 documented as of this encounter
--- OUTSIDE RECORDS SUMMARY | 2024-09-06 10:45 | XMS_ITS | Encounter Summary ---
Author Organization [facility] Address [address] [facility] [place] [address] Phone Care Team Providers Care Thermodynamics Teacher Name Role Phone Wilian Sultana MD Unavailable Darnell Bryant MD Unavailable Milly Celaya APRN, FOUNTAIN CLERK Primary Care Provider Unavailable Encounter Details Date Type Department Care Team (Late st Contact Info) Description 04/05/2024 Behavioral Health Patient Survey [facility] 1 [place] [address] Justyn Miranda, EQUIPMENT HIRE MANAGER #1 [place] [address] Social History Tobacco Use Types Packs/Day Years [...] st Contact Info) Description 09/19/2024 9:30 AM DISPLAY SPECIALIST Telemedicine [facility] 1 [place] [address] Justyn Miranda, EQUIPMENT HIRE MANAGER [address] [place] [address] Discharge Disposition: Discharged to home or Selfcare documented as of this encounter Goals Goal Patient Goal Type Associated Problems Recent Progress Patient-Stated? Author I need to be able to cope better with my grief and bitterness towards my family within the next six months Behavioral Health On track(2024 9:24 AM DISPLAY SPECIALIST) Yes Justyn Miranda LCSW Note: Goal [...] Health Behavioral Health On track(2024 9:24 AM DISPLAY SPECIALIST) No Justyn Miranda LCSW Note: Goal: [...] documented as of this encounter Care Teams Thermodynamics Teacher Relationship Specialty Start Date End Date Milly Celaya, METALWORKING INSTRUCTOR, FOUNTAIN CLERK JamieA Salvador [facility] [place] [address] PCP - General Obstetrics & Gynecology 05/23/18 Wilian Sultana MD Consulting Physician Neurology 08/11/16 06/24/24 Darnell Bryant MD [address] [facility] [id number] Psychiatry 03/16/18 documented as of this encounter
--- OUTSIDE RECORDS SUMMARY | 2024-09-06 10:45 | XMS_ITS | Encounter Summary ---
Author Organization [facility] Address [address] [facility] [place] [address] Phone Care Team Providers Care Call Or Contact Centre Team Leader Name Role Phone Wilian Sultana MD Unavailable Darnell Bryant MD Unavailable Milly Celaya APRN, ROUTE RELIEF DRIVER Primary Care Provider Unavailable Encounter Details Date Type Department Care Team (Late st Contact Info) Description 10/04/2023 Behavior[facility] 1 [place] [address] Justyn Miranda, RIPRAP PLACER #1 [place] [address] Social History Tobacco Use Types [...] st Contact Info) Description 09/19/2024 9:30 AM TAXI DRIVER Telemedicine [facility] 1 [place] [address] Justyn Miranda, RIPRAP PLACER [address] [place] [address] Discharge Disposition: Discharged to home or Selfcare documented as of this encounter Goals Goal Patient Goal Type Associated Problems Recent Progress Patient-Stated? Author I need to be able to cope better with my grief and bitterness towards my family within the next six months Behavioral Health On track(2024 9:24 AM TAXI DRIVER) Yes Justyn Miranda LCSW Note: Goal Reviewed today with: patient Readiness to change: Ready to change Department associated with goal: [facility] Steps to achieve goal: Patient to be counseled on coping with grief, during her 45 min individual therapy sessions, 2-3 times per month Patient to be counseled on aspects of healthy self-care, during her 45 min individual sessions, 2-3 times per month Behavioral Health Behavioral Health On track(2024 9:24 AM TAXI DRIVER) No Justyn Miranda LCSW Note: Goal: Patient will be able to report improved mood/coping ability for family stressors/discord, to an acceptable level within the next six months Goal Reviewed today with: patient Readiness to change: Ready to change Department associated with goal: [facility] Steps to achieve [...] documented as of this encounter Care Teams Call Or Contact Centre Team Leader Relationship Specialty Start Date End Date Milly Celaya, JOB COST ESTIMATOR, ROUTE RELIEF DRIVER JamieA Salvador [place] [address] PCP - General Obstetrics & Gynecology 05/23/18 Wilian Sultana MD Consulting Physician Neurology 08/11/16 06/24/24 Darnell Bryant MD [address] [facility] [id number] Psychiatry 03/16/18 documented as of this encounter
--- OUTSIDE RECORDS SUMMARY | 2024-09-06 10:45 | XMS_ITS | Encounter Summary ---
Author Organization [facility] Address [address] [facility] [place] [address] Phone Care Team Providers Care Debridging Machine Operator Name Role Phone Wilian Sultana MD Unavailable Darnell Bryant MD Unavailable Milly Celaya APRN, BIOLOGY ADJUNCT INSTRUCTOR Primary Care Provider Unavailable Encounter Details Date Type Department Care Team (Late st Contact Info) Description 03/05/2024 Behavioral Health [facility] 1 [place] [address] Justyn Miranda, BRICKLAYER SEWER [address] [place] [address] Social History Tobacco Use Types Packs/Day Years [...] st Contact Info) Description 09/19/2024 9:30 AM CONTROL AREA OPERATOR Telemedicine [facility] 1 [place] [address] Justyn Miranda, BRICKLAYER SEWER [address] [place] [address] Discharge Disposition: Discharged to home or Selfcare documented as of this encounter Goals Goal Patient Goal Type Associated Problems Recent Progress Patient-Stated? Author I need to be able to cope better with my grief and bitterness towards my family within the next six months Behavioral Health On track(2024 9:24 AM CONTROL AREA OPERATOR) Yes Justyn Miranda LCSW Note: Goal Reviewed today with: patient Readiness to change: Ready to change Department associated with goal: [facility] Steps to achieve goal: Patient to be counseled on coping with grief, during her 45 min individual therapy sessions, 2-3 times per month Patient to be counseled on aspects of healthy self-care, during her 45 min individual sessions, 2-3 times per month Behavioral Health Behavioral Health On track(2024 9:24 AM CONTROL AREA OPERATOR) No Justyn Miranda LCSW Note: Goal: Patient will be able to report improved mood/coping ability for family stressors/discord, to an acceptable level within the next six months Goal Reviewed today with: patient Readiness to change: Ready to change Department associated with goal: [facility] Steps to achieve goal: [...] documented as of this encounter Care Teams Debridging Machine Operator Relationship Specialty Start Date End Date Milly Celaya, COSMETIC SALES ADVISOR, BIOLOGY ADJUNCT INSTRUCTOR JamieA Salavdor [facility] [address] PCP - General Obstetrics & Gynecology 05/23/18 Wilian Sutlana MD Consulting Physician Neurology 08/11/16 06/24/24 Darnell Bryant MD [address] [facility], [place] [id number] Psychiatry 03/16/18 documented as of this encounter
--- OUTSIDE RECORDS SUMMARY | 2024-09-06 10:45 | XMS_ITS | Clinical Summary ---
Author Organization [facility] [employer] Address [address] [place] [address] Care Team Providers Care Die Tester Name Role Phone Sara Vela MD Primary Care Provider Source Comments [facility],non-owned Affiliates and Associated Physician Practices is amultiple site organization consisting of ambulatory clinics and hospital sitesin [place], [place], [place] and [place]. This disclosure is being madepursuant to the Care Everywhere program and may not contain all information available regarding this patient. Last updated 18.[facility] [employer] Allergies Active Allergy Reactions Criticality Noted Date [...] Comments Blood Pressure 112/62 06/23/2017 4:02 PM PADDED PRODUCTS INSPECTOR TRIMMER Pulse 55 06/23/2017 4:02 PM PADDED PRODUCTS INSPECTOR TRIMMER Temperature 36.8 ??C (98.2 ??F) 06/23/2017 4:02 PM CS T Respiratory Rate 16 06/23/2017 4:02 PM PADDED PRODUCTS INSPECTOR TRIMMER Oxygen Saturation - - Inhaled Oxygen Concentration - - Weight 67.1 kg (148 lb) 06/23/2017 4:02 PM PADDED PRODUCTS INSPECTOR TRIMMER Height 157.5 cm (5' 2 ) 06/23/2017 4:02 PM PADDED PRODUCTS INSPECTOR TRIMMER Body Mass Index 27.07 06/23/2017 4:02 PM PADDED PRODUCTS INSPECTOR TRIMMER Plan of Treatment Health Maintenance Due Date [...] age to complete this topic Care Teams Die Tester Relationship Specialty Start Date End Date Sara Vela MD [address] [place] [address] PCP - General 12/06/22
--- OUTSIDE RECORDS SUMMARY | 2024-09-06 10:46 | XMS_ITS | Encounter Summary ---
Author Organization [facility] Address [address] [facility] [place] [address] Phone Care Team Providers Care Blankmaker Name Role Phone Wilian Sultana MD Unavailable [phone] Darnell Bryant MD Unavailable Milly Celaya APRN, VP CARDIOVASCULAR Primary Care Provider Unavailable Encounter Details Date Type Department Care Team (Late st Contact Info) Description 08/31/2023 Behavior[facility] 1 [place] [address] Justyn Miranda, AUTOMOTIVE ALIGNMENT SPECIALIST #[address] [place] [address] Social History Tobacco Use Types Packs/Day Years [...] st Contact Info) Description 09/19/2024 9:30 AM GRAPHIC EDITOR Telemedicine [facility] 1 [place] [address] Justyn Miranda, AUTOMOTIVE ALIGNMENT SPECIALIST [address] [place] [address] Discharge Disposition: Discharged to home or Selfcare documented as of this encounter Goals Goal Patient Goal Type Associated Problems Recent Progress Patient-Stated? Author I need to be able to cope better with my grief and bitterness towards my family within the next six months Behavioral Health On track(2024 9:24 AM GRAPHIC EDITOR) Yes Justyn Miranda LCSW Note: Goal Reviewed today with: patient Readiness to change: Ready to change Department associated with goal: [facility] Steps to achieve goal: Patient to be counseled on coping with grief, during her 45 min individual therapy sessions, 2-3 times per month Patient to be counseled on aspects of healthy self-care, during her 45 min individual sessions, 2-3 times per month Behavioral Health Behavioral Health On track(2024 9:24 AM GRAPHIC EDITOR) No Justyn Miranda LCSW Note: Goal: Patient will be able to report improved mood/coping ability for family stressors/discord, to an acceptable level within the next six months Goal Reviewed today with: patient Readiness to change: Ready to change Department associated with goal: [facility] Steps to achieve [...] documented as of this encounter Care Teams Blankmaker Relationship Specialty Start Date End Date Milly Celaya, PRINCIPAL PROGRAMMER, VP CARDIOVASCULAR JamieA Salvador [facility] [address] PCP - General Obstetrics & Gynecology 05/23/18 Wilian Sultana MD Consulting Physician Neurology 08/11/16 06/24/24 Darnell Bryant MD [address] [facility] [address] Psychiatry 03/16/18 documented as of this encounter
--- OUTSIDE RECORDS SUMMARY | 2024-09-06 10:46 | XMS_ITS | Encounter Summary ---
Author Organization [facility] [employer] [facility] Address [address] [place] [address] Care Team Providers Care Apprenticeship Training Representative Name Role Phone Renetta Sarabia MD Primary Care Provider Reason for Visit * Reason Onset Date Comments lab orders 07/13/2022 Encounter Details Date Type Department Care Team (Late st Contact Info) Description 07/13/2022 Telephone [facility] Oncology and Hematology - [place] [address] [place] [address] [address] [place] [address] Leon Oneill MD [address] [place] [address] lab orders Social History Tobacco [...] Renetta Faith RN - 07/13/2022 10:28 AM LOOPER FIXER No labs ordered for this patient at last visit. 1 year F/U. I pended CBC, CMP, Immunoglobulins. Please add any other orders needed. ER FIXER documented in this encounter Plan of Treatment Upcoming Encounters Date Type Department Care Team (Late st Contact Info) Description 07/22/2025 1:00 PM LOOPER FIXER Office Visit [facility] Oncology and Hematology - [place] [address] [facility] [address] [place] [address] Leon Oneill MD [address] [place] [address] documented as of this encounter Visit Diagnoses Diagnosis Hypogammaglobulinemia- Primary Hypogammaglobulinaemia, unspecified documented in this encounter Care Teams Apprenticeship Training Representative Relationship Specialty Start Date End Date Renetta Sarabia MD PCP - General Family Practice 12/21/19 documented as of this encounter
--- OUTSIDE RECORDS SUMMARY | 2024-09-06 10:46 | XMS_ITS | Encounter Summary ---
Author Organization [facility] Address [address] [facility] [place] [address] Phone Care Team Providers Care Employee Service Officer Name Role Phone Wilian Sultana MD Unavailable Darnell Bryant MD Unavailable Milly Celaya APRN, DRY GOODS INSPECTOR Primary Care Provider Unavailable Encounter Details Date Type Department Care Team (Late st Contact Info) Description 05/25/2023 Behavioral Health [facility] 1 [place] [address] Justyn Miranda, [facility] [address] [place] [address] Social History Tobacco Use Types Packs/Day Years [...] st Contact Info) Description 09/19/2024 9:30 AM OPTICAL LATHE OPERATOR Telemedicine [facility] Behavioral Health Services [address] [place] [address] Justyn Miranda LCSW [address] [place] [address] Discharge Disposition: Discharged to home or Selfcare documented as of this encounter Goals Goal Patient Goal Type Associated Problems Recent Progress Patient-Stated? Author I need to be able to cope better with my grief and bitterness towards my family within the next six months Behavioral Health On track(2024 9:24 AM OPTICAL LATHE OPERATOR) Yes Justyn Miranda LCSW Note: Goal Reviewed today with: patient Readiness to change: Ready to change Department associated with goal: [facility] Steps to achieve goal: Patient to be counseled on coping with grief, during her 45 min individual therapy sessions, 2-3 times per month Patient to be counseled on aspects of healthy self-care, during her 45 min individual sessions, 2-3 times per month Behavioral Health Behavioral Health On track(2024 9:24 AM OPTICAL LATHE OPERATOR) No Justyn Miranda LCSW Note: Goal: Patient will be able to report improved mood/coping ability for family stressors/discord, to an acceptable level within the next six months Goal Reviewed today with: patient Readiness to change: Ready to change Department associated with goal: [facility] SERVICES Steps [...] documented as of this encounter Care Teams Employee Service Officer Relationship Specialty Start Date End Date Milly Celaya, CLINICAL DOCUMENTATION CONSULTANT, DRY GOODS INSPECTOR [address] [place] [address] PCP - General Obstetrics & Gynecology 05/23/18 Wilian Sultana MD Consulting Physician Neurology 08/11/16 06/24/24 Darnell Bryant MD [place] [address] [place] [address] Psychiatry 03/16/18 documented as of this encounter
--- OUTSIDE RECORDS SUMMARY | 2024-09-06 10:46 | XMS_ITS | Continuity of Care Document ---
Author Organization [facility] Address [address] [place] [address] [place] [address] Phone Care Team Providers Care Amortization Clerk Name Role Phone Marcus Redmond Unavailable Unavailable [...] Providers Copied on Encounter Office/outpat ient Visit, [facility], [address] [place] [address] [address], [place], [place], [id number], [place] tel:[phone] [facility] [place] No Information 9-201 0 Nyla Velazquez. [address] [place] , [address], [place], [place], [facility], . tel:[phone] Office/outpat ient Visit, [facility], [address] [place] [address] [address], [place], [place], [id number], [place] tel:[phone] [facility] [place] No Information 1-200 9 Hali Barahona. [address] [place] , [address], [place], [address], . tel:[phone] Office/outpat ient Visit, [facility], [address] [place] [address] [address], [place], [place], [id number], [place] tel:[phone] [facility] [place] No Information May-0 7-200 9 Lal Brooklyn. [address], [place], [place], [facility], . tel:[phone] Office/outpat ient Visit, [facility], [address] [place] [address] [address], [place], [place], [id number], [place] tel:[phone] [facility] [place] No Information Apr-2 7-200 9 Trey Grimaldohil. [address], [place], [place], [facility], . tel:[phone] [facility], [id number] [place] [address] [address], [place], [place], [id number], tel:[phone] [facility] [place] No Information Nov-2 3-200 9 Hali Barahona. [address], [place], [place], [facility], . tel:[phone] [facility], [address] [place] [address] [address], [place], [place], [id number], tel:[phone] [facility] [place] No Information Ish-2 0-200 9 Hall OD Darnell. [address] , [address], [place], [place], [facility], [place]. tel:[phone] [facility], [address] [place] [address] [address], [place], [place], [id number], [place] tel:[phone] [facility] No Information Feb-2 8-200 7 Hall OD Darnell. [address], [place], [place], [facility], . tel:[phone] Family History Family Member Type Diagnosis Age At Onset No Information Payers Payer name Insurance type Covered libertarian ID Authoriza tion(s) No Information Social History [...]
--- OUTSIDE RECORDS SUMMARY | 2024-09-06 10:46 | XMS_ITS | Clinical Summary ---
Author Organization [facility] Address [address] [place] [address] Care Team Providers Care Machine Operator General Name Role Phone Renetta Sarabia MD Primary [...] tongue Continuous as needed. 09/29/19 19 Active [place]-3 Fatty Acids 1,000 mg Capsule Take 1 [...] by mouth. Active naloxone (NARCAN) 4 mg/spray [place], Non-Aerosol EMERGENCY USE ONLY: Administer 1 spray [...] STL ABSTRACTION Provider, Abstract 07/20/2024 Orders Only [facility] Oncology and Hematology - [address] [place] [address] Leon Oneill MD 07/19/2024 3:30 PM CLINICAL NURSING ASSISTANT Office Visit [facility] Oncology and Hematology - [place] [place] [address] Leon Oneill MD Hypogammaglobulinemia (Primary Dx) 07/17/2024 Orders Only [facility] Oncology and Hematology - [place] [place] [address] Leon Oneill MD 07/13/2024 Orders Only [facility] Oncology and Hematology - [place] [place] [address] Leon Oneill MD 07/11/2024 Abstract [facility] Oncology and Hematology - [address] [place] [address] Leon Oneill MD 06/06/2024 External Device Data [...] Comments Blood Pressure 121/77 07/19/2024 3:24 PM CLINICAL NURSING ASSISTANT Pulse 75 07/19/2024 3:24 PM CLINICAL NURSING ASSISTANT Temperature 36.1 ??C (97 ??F) 07/19/2024 3:24 PM CLINICAL NURSING ASSISTANT Respiratory Rate 16 07/19/2024 3:24 PM CLINICAL NURSING ASSISTANT Oxygen Saturation 96% 07/19/2024 3:24 PM CLINICAL NURSING ASSISTANT Inhaled Oxygen Concentration - - Weight 70.8 kg (156 lb) 07/19/2024 3:24 PM CLINICAL NURSING ASSISTANT Height 167.6 cm (5' 6 ) 07/08/2021 9:25 AM CLINICAL NURSING ASSISTANT Body Mass Index 25.18 07/08/2021 9:25 AM CLINICAL NURSING ASSISTANT Plan of Treatment Upcoming Encounters Date Type Department Care Team (Late st Contact Info) Description 07/22/2025 1:00 PM CLINICAL NURSING ASSISTANT Office Visit [facility] Oncology and Hematology [facility] [address] [facility] [address] [place] [address] Leon Oneill MD [address] [facility] [address] [place] [address] Health Maintenance Due Date Last [...] PROTEIN ELECTROPHORESIS, CSF Routine 07/19/2024 1:55 PM CLINICAL NURSING ASSISTANT KAPPA/LAMBDA LIGHT CHAINS Routine 2023 2:33 PM CLINICAL NURSING ASSISTANT COMPREHENSIVE METABOLIC PANEL Routine 07/11/2024 1:11 PM CLINICAL NURSING ASSISTANT CBC WITH DIFFERENTIAL Routine 07/11/2024 11:32 AM CLINICAL NURSING ASSISTANT from Last 3 Months Results * PROTEIN ELECTROPHORESIS, CSF (07/19/2024 1:55 PM CLINICAL NURSING ASSISTANT) Cerebrospinal fluid CEREBROSPINAL FLUID / Unknown us Leon Oneill MD BODY FLUIDS AND STOOLS Final Re sult * KAPPA/LAMBDA, FREE LIGHT CHAINS (07/11/2024 2:33 PM CLINICAL NURSING ASSISTANT) Blood us Leon Oneill MD CHEMISTRY ORDERABLES Final Resu lt * COMPREHENSIVE METABOLIC PANEL (07/11/2024 1:11 PM CLINICAL NURSING ASSISTANT) Blood us Leon Oneill MD CHEMISTRY ORDERABLES Final Resu lt * CBC WITH DIFFERENTIAL (07/11/2024 11:32 AM CLINICAL NURSING ASSISTANT) Blood us Leon Oneill MD HEMATOLOGY ORDERABLES Final Res ult from Last 3 Months Insurance [employer] O [facility] [place] PPO [employer] PPO [employer]unte PPO Care Teams Machine Operator General Relationship Specialty Start Date End Date Renetta Sarabia MD PCP - General Family Practice 12/21/19
--- OUTSIDE RECORDS SUMMARY | 2024-09-06 10:46 | XMS_ITS | Encounter Summary ---
Author Organization [facility] Address [address] [facility] [address] [place] [address] Care Team Providers Care Forensic Toxicologist Name Role Phone Leon Chandler MD Primary Care Provider [phone] Leon Chandler MD Primary Care Provider [phone] Milly Celaya NP Primary Care Provider [phone] Augustin Goodson MD Unavailable [phone] Leon Oneill MD Unavailable [phone] Rick Rivas MD Unavailable Gin Toth MD Unavailable [phone] Wilian Sultana MD Unavailable [phone] No, Physician Primary Care Provider [phone] Renetta Saraiba MD Primary Care Provider [phone] Renetta Sarabia MD Unavailable [phone] Renetta Sarabia MD Primary Care Provider [phone] Sara Vela MD Primary Care Provider Prudence Gaines MD Unavailable [phone] Encounter Details Date Type Department Care Team (Late st Contact Info) Description 08/25/2016 Orders Only [facility] ProviderMitchell MD [address] [place] [address] Social History Tobacco Use Types Packs/Day Years Used Date Smoking Tobacco: Never Alcohol Use Standard Drinks/Week Comments No 0 (1 standard drink = 0.6 oz pur e alcohol) Comments Unknown Sex and Gender Information Value Date Recorded Sex Assigned at Not on file Legal Sex Female 7:06 AM 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 Gender Identity Female 06/12/2021 1:30 PM CDT [...] on filedocumented in this encounter Care Teams Forensic Toxicologist Relationship Specialty Start Date End Date Leon Chandler MD PCP - General 11/05/16 03/06/18 Leon Chandler MD PCP - General 02/25/14 11/04/16 Milly Celaya NP [address] [place] [address] PCP - General Family Medicine 03/07/18 11/08/19 No, Physician PCP - General 11/09/19 12/26/19 Renetta Sarabia MD PCP - General Family Practice 12/27/19 12/27/19 Renetta Sarabia MD PCP - General Family Practice 01/03/20 09/21/21 Sara Vela MD [address] [facility] 2 [place] [address] PCP - General Family Practice 02/27/24 Augustin Goodson MD [address] [place] [address] 200 [place] [address] Referring Physician Nephrology 03/07/18 Leon Oneill MD [address] [place] [address] Referring Physician Hematology 03/07/18 Rick Rivas MD [address] [place] [address] Referring Physician Rheumatology 03/07/18 Gin Toth MD [address] [facility] 200 [place] [address] Consulting Physician Cardiology 03/07/18 02/26/24 Wilian S[address] MD [address] [facility] 3 [place] [address] Referring Physician Neurology 03/07/18 Renetta Sarabia MD Referring Physician Family Practice 12/27/19 Prudence Gaines MD [address] [place] [address] Referring Physician Plastic Surgery 04/05/24 documented as of this encounter
--- OUTSIDE RECORDS SUMMARY | 2024-09-06 10:46 | XMS_ITS | Clinical Summary ---
Author Organization [facility] Building [facility] Address [address] [place] [address] Care Team Providers Care Medical Customer Service Representative Name Role Phone Augustin Goodson MD Unavailable [phone] Leon Oneill MD Unavailable [phone] Rick Rivas MD Unavailable Wilian Sultana MD Unavailable [phone] Renetta Sarabia MD Unavailable [phone] Sara Vela MD Primary Care Provider Prudence Gaines MD Unavailable [phone] Allergies Active Allergy Reactions Criticality Noted Date [...] 12/26/2018 Assessment & Plan (10/04/2018 9:33 PM SANITIZER): Rapid flu in office was negative as [...] Department Care Team Description 08/31/2024 10:30 AM SANITIZER Therapy [facility] Physical Therapy [address] [place] [address] Advanced Medicine 6th [place] [address] [place] [address] Mimi Coelho DPT 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) 08/24/2024 11:30 AM SANITIZER Therapy [facility] Physical Therapy [address] [place] [address] 6th [place] [address] [place] [address] Mimi Coelho DPT 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, right (Primary Dx); Radial sensory nerve injury, right, subsequent encounter 08/10/2024 11:30 AM SANITIZER Therapy [facility] Physical [address] 6th [place] [address] [place] [address] Mimi Coelho DPT 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) 08/02/2024 Orders Only [facility] Surgery [address] [place] [address] 6th [place] [address] [place] [address] Telma Frost MD 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) 07/30/2024 11:30 AM SANITIZER Therapy [facility] Physical [address] [place] [address] [place] [address] Aaliyah Koenig DPT 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, right (Primary Dx); Radial sensory nerve injury, right, subsequent encounter 07/19/2024 10:15 AM SANITIZER Office Visit [facility] Cardiology [address] [facility] [address] [place] [address] Chase Ace MD Nonrheumatic aortic valve insufficiency (Primary Dx); Ventricular premature beats; Mixed hyperlipidemia; Essential hypertension 07/17/2024 2:00 PM SANITIZER Therapy [address] [place] [address] [place] [address] Aaliyah Koenig DPT 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, right (Primary Dx) 07/10/2024 11:30 AM SANITIZER Therapy [facility] Physical [address] 6th [place] [address] [place] [address] Mimi Coelho DPT 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, right (Primary Dx); Radial sensory nerve injury, right, subsequent encounter 07/04/2024 1:00 PM SANITIZER Therapy [facility] Physical [address] 6th [place] [address] [place] [address] Aaliyah Koenig DPT 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, right (Primary Dx) 07/02/2024 Orders Only [place] [address] Unknown, Notinfile 06/29/2024 11:30 AM SANITIZER Therapy [facility] Physical Therapy [facility] [address] [place] [address] [place] [address] Mimi Coelho DPT 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, right (Primary Dx); Radial sensory nerve injury, right, subsequent encounter 06/22/2024 Telephone [facility] Physical Therapy [address] [place] [address] Aaliyah Koenig DPT return call 06/18/2024 11:30 AM SANITIZER Therapy [facility] Physical Therapy [address] [place] [address] [place] [address] Aaliyah Koenig DPT 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, right (Primary Dx); Radial sensory nerve injury, right, subsequent encounter 06/16/2024 Plan of Care Documentation [facility] Physical Therapy [facility] [address] [place] [address] 06/15/2024 11:30 AM SANITIZER Therapy [facility] Physical [place] [address] [place] [address] Mimi Coelho, AVELINO 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 Hx Other Medical On [place] Anxiety disorder Anxiety Hx Other Medical Back [...] on file Legal Sex Female 7:06 AM SANITIZER Gender Identity Female 06/12/2021 1:30 PM CDT Sexual Orientation Not on file Obstetrics History Last Filed Vital Signs Vital Sign Reading Time Taken Comments Blood Pressure 104/60 07/19/2024 10:29 AM SANITIZER Pulse 70 07/19/2024 10:29 AM SANITIZER Temperature 37.2 ??C (98.9 ??F) 03/22/2019 1:09 PM CD T Respiratory Rate 18 03/22/2019 1:09 PM CDT Oxygen Saturation 97% 07/19/2024 10:29 AM SANITIZER Inhaled Oxygen Concentration - - Weight 70.8 kg (156 lb) 07/19/2024 10:29 AM SANITIZER Height 157.5 cm (5' 2 ) 07/19/2024 10:29 AM SANITIZER Body Mass Index 28.53 07/19/2024 10:29 AM SANITIZER Plan of Treatment Health Maintenance Due Date [...] SURGICAL PATHOLOGY Routine 07/02/2024 4: 10 PM SANITIZER MAMMOGRAPHY Routine 12/06/2018 COLONOSCOPY Routine 03/19/2013 8:29 AM CDT DEXA SCAN Routine 12/20/2008 from Last 3 Months or Most Recently Relevant to Health Maintenance Results * Surgical pathology (07/02/2024 4:10 PM SANITIZER) Skin, shave biopsy 07/02/2024 4:10 PM SANITIZER 07/04/2024 7:03 AM SANITIZER Narrative 07/09/2024 1:48 PM SANITIZER [facility] results best viewed via link to PDF [facility] Dermatopathology [facility] [address] [place] [address] [address] ??[address] [place] [address] ? [email or web address] Note to Patients: ??This report may [...] ??07/09/2024 ? Submitting Physician Information: Pilar Renner, [facility]- [facility], [address] [place] [address] ??[id number], ? DERMATOPATHOLOGY REPORT RESULTS ?? DIAGNOSIS: SKIN, [...] time of procedure. dh/mxf Clerical Data A; 55339 The characteristics of special, immunohistochemical, and immunofluorescence stains and in-situ hybridization tests performed by the [facility] were deemed acceptable in ongoing quality assurance assistant measures and in compliance with regulations drawn from the Clinical Laboratory Improvement Act pz1965 (CLIA '88). Control reactions for all stains performed were deemed adequate and appropriate by a pathologist prior to evaluation of patient tissue. Some diagnoses were rendered with the assistance of laboratory-developed tests utilizing analyte-specific reagents; the performance characteristic of these tests were determined by [facility] and are not cleared or approved by the [place] Food an Drug administration. Laboratory developed test may only be performed in a facility that is certified by the [facility] as a high-complexity laboratory under CLIA '88. These tests are used for clinical purposes and are not investigational. Notinfile Unknown LAB PATHOLOGY ORDERABLES Final Result * MAMMOGRAPHY (12/06/2018) Mammogram Normal Historical Provider HEALTH MAINTENANCE Final Result * COLONOSCOPY (03/19/2013 8:29 AM CDT) Pathologist [facility] Colonoscopy Normal Result [facility] Historical Provider HEALTH MAINTENANCE Final Result * DEXA SCAN (12/20/2008) Pathologist [facility] DEXA Scan Unknown Historical Provider HEALTH MAINTENANCE Final Result from Last 3 Months or Most Recently Relevant to Health Maintenance Insurance [facility] Spare Backup [employer] OPEN ACCESS [employer] ACCESS Care Teams Medical Customer Service Representative Relationship Specialty Start Date End Date Sara Vela MD [address] [facility] [place] [address] [place] [address] PCP - General Family Practice 02/27/24 Augustin Goodson MD Referring Physician Nephrology 03/07/18 Leon Oneill MD [address] [facility] [address] [place] [address] Referring Physician Hematology 03/07/18 Rick Rivas MD [address] [facility] [address] [place] [address] Referring Physician Rheumatology 03/07/18 Wilian Sultana MD [address] [facility] [address] [facility] 3 [place] [address] Referring Physician Neurology 03/07/18 Renetta Sarabia MD [address] [place] [address] [place] [address] Referring Physician Family Practice 12/27/19 Prudence Gaines MD [address] [facility] 22 [place], [place] [address] Referring Physician Plastic Surgery 04/05/24
--- OUTSIDE RECORDS SUMMARY | 2024-09-06 10:46 | XMS_ITS | Encounter Summary ---
Author Organization [facility] Address [address] [facility] [facility] [place] [address] Phone Care Team Providers Care Stock Roller Name Role Phone Wilian Sultana MD Unavailable Darnell Bryant MD Unavailable Milly Celaya APRN, HELICOPTER MECHANIC Primary Care Provider Unavailable Encounter Details Date Type Department Care Team (Late st Contact Info) Description 03/11/2023 Behavioral Health Patient Survey [facility] [address] [place] [address] Justyn Miranda, [facility] [address] [place] [address] Social History Tobacco Use Types Packs/Day Years [...] st Contact Info) Description 09/19/2024 9:30 AM IS TECHNICIAN Telemedicine [facility] [address] [place] [address] Justyn Miranda LCSW [address] [place] [address] Discharge Disposition: Discharged to home or Selfcare documented as of this encounter Goals Goal Patient Goal Type Associated Problems Recent Progress Patient-Stated? Author I need to be able to cope better with my grief and bitterness towards my family within the next six months Behavioral Health On track(2024 9:24 AM IS TECHNICIAN) Yes Justyn Miranda LCSW Note: Goal Reviewed today with: patient Readiness to change: Ready to change Department associated with goal: [facility] Steps to achieve goal: Patient to be counseled on coping with grief, during her 45 min individual therapy sessions, 2-3 times per month Patient to be counseled on aspects of healthy self-care, during her 45 min individual sessions, 2-3 times per month Behavioral Health Behavioral Health On track(2024 9:24 AM IS TECHNICIAN) No Justyn Miranda LCSW Note: Goal: Patient will be able to report improved mood/coping ability for family stressors/discord, to an acceptable level within the next six months Goal Reviewed today with: patient Readiness to change: Ready to change Department associated with goal: [facility] Steps to achieve [...] documented as of this encounter Care Teams Stock Roller Relationship Specialty Start Date End Date Milly Celaya, SERIALS LIBRARIAN, HELICOPTER MECHANIC [address] [place] [address] PCP - General Obstetrics & Gynecology 05/23/18 Wilian Sultana MD Consulting Physician Neurology 08/11/16 06/24/24 Darnell Bryant MD [address] [place] [address] Psychiatry 03/16/18 documented as of this encounter
--- OUTSIDE RECORDS SUMMARY | 2024-09-06 10:46 | XMS_ITS | Referral Summary ---
Author Organization [facility] Medical Office Building B Address [address] [place] [address] Care Team Providers Care Inspector Metal Can Name Role Phone Augustin Goodson MD Unavailable [phone] Leon Oneill MD Unavailable [phone] Rick Rivas MD Unavailable Wilian Sultana MD Unavailable [phone] Renetta Sarabia MD Unavailable [phone] Sara Vela MD Primary Care Provider Prudence Gaines MD Unavailable [phone] Encounters Date Type Department Care Team Description 08/31/2024 10:30 AM APIARIST Therapy [facility] Physical Therapy [address] [place] [address] 6th [place] [address] [place] [address] Mimi Coelho DPT 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) 08/24/2024 11:30 AM APIARIST Therapy [facility] Physical Therapy [facility] 6th [place] [address] [place] [address] Mimi Coelho DPT 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, right (Primary Dx); Radial sensory nerve injury, right, subsequent encounter 08/10/2024 11:30 AM APIARIST Therapy [facility] Physical Therapy [address] [place] [address] 6th [place] [address] [place] [address] Mimi Coelho DPT 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) 08/02/2024 Orders Only [facility] Surgery [address] [place] [address] 6th [place] [address] [place] [address] Telma Frost MD 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) 07/30/2024 11:30 AM APIARIST Therapy [facility] Physical [address] 6th [place] [address] [place] [address] Aaliyah Koenig DPT 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, right (Primary Dx); Radial sensory nerve injury, right, subsequent encounter 07/19/2024 10:15 AM APIARIST Office Visit [facility] Cardiology [address] [facility] [address] [place] [address] Chase Ace MD Nonrheumatic aortic valve insufficiency (Primary Dx); Ventricular premature beats; Mixed hyperlipidemia; Essential hypertension 07/17/2024 2:00 PM APIARIST Therapy [facility] Physical [address] 6th [place] [address] [place] [address] Aaliyah Koenig DPT 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, right (Primary Dx) 07/10/2024 11:30 AM APIARIST Therapy [facility] Physical [address] 6th [place] [address] [place] [address] Mimi Coelho DPT 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, right (Primary Dx); Radial sensory nerve injury, right, subsequent encounter 07/04/2024 1:00 PM APIARIST Therapy [facility] Physical [address] 6th [place] [address] [place] [address] Aaliyah Koenig DPT 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, right (Primary Dx) 07/02/2024 [place] [address] Unknown, Notinfile 06/29/2024 11:30 AM APIARIST Therapy [facility] Physical [address] 6th [place] [address] [place] [address] Mimi Coelho DPT 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, right (Primary Dx); Radial sensory nerve injury, right, subsequent encounter 06/22/2024 Telephone [facility] Physical [place] [id number] [place] [address] Aaliyah Koenig DPT return call 06/18/2024 11:30 AM APIARIST Therapy [address] [place] [address] Aaliyah Koenig DPT 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, right (Primary Dx); Radial sensory nerve injury, right, subsequent encounter 06/16/2024 Plan of Care Documentation [address] [place] [address] 06/15/2024 11:30 AM APIARIST Therapy [address] [place] [address] Mimi Coelho, AVELINO Median nerve compression in [...] 12/26/2018 Assessment & Plan (10/04/2018 9:33 PM APIARIST): Rapid flu in office was negative as [...] on file Legal Sex Female 7:06 AM APIARIST Gender Identity Female 06/12/2021 1:30 PM CDT Sexual Orientation Not on file Last Filed Vital Signs Vital Sign Reading Time Taken Comments Blood Pressure 104/60 07/19/2024 10:29 AM APIARIST Pulse 70 07/19/2024 10:29 AM APIARIST Temperature 37.2 ??C (98.9 ??F) 03/22/2019 1:09 PM CD T Respiratory Rate 18 03/22/2019 1:09 PM CDT Oxygen Saturation 97% 07/19/2024 10:29 AM APIARIST Inhaled Oxygen Concentration - - Weight 70.8 kg (156 lb) 07/19/2024 10:29 AM APIARIST Height 157.5 cm (5' 2 ) 07/19/2024 10:29 AM APIARIST Body Mass Index 28.53 07/19/2024 10:29 AM APIARIST Plan of Treatment Not on file Procedures Procedure Name Priority Date/Time Associated Diagnosis Comments SURGICAL PATHOLOGY Routine 07/02/2024 4: 10 PM APIARIST MAMMOGRAPHY Routine 12/06/2018 COLONOSCOPY Routine 03/19/2013 8:29 AM CDT DEXA SCAN Routine 12/20/2008 from Last 3 Months or Most Recently Relevant to Health Maintenance Results * Surgical pathology (07/02/2024 4:10 PM APIARIST) Skin, shave biopsy 07/02/2024 4:10 PM APIARIST 07/04/2024 7:03 AM APIARIST Narrative 07/09/2024 1:48 PM APIARIST [facility] results best viewed via link to PDF [facility] [address] [place] [address] T[address] ??[address] [place] [address] ? [email or web address] Note to Patients: ??This report [...] ??07/09/2024 ? Submitting Physician Information: Pilar Renner, [facility]- [facility], [address] [place] [address] ??[id number], ? DERMATOPATHOLOGY REPORT RESULTS ?? DIAGNOSIS: SKIN, [...] time of procedure. dh/mxf Clerical Data A; 21331 The characteristics of special, immunohistochemical, and immunofluorescence stains and in-situ hybridization tests performed by the [facility] were deemed acceptable in ongoing supplier quality specialist measures and in compliance with regulations drawn from the Clinical Laboratory Improvement Act tg4750 (CLIA '88). Control reactions for all stains performed were deemed adequate and appropriate by a pathologist prior to evaluation of patient tissue. Some diagnoses were rendered with the assistance of laboratory-developed tests utilizing analyte-specific reagents; the performance characteristic of these tests were determined by [facility] and are not cleared or approved by the [place] Food an Drug administration. Laboratory developed test may only be performed in a facility that is certified by the [facility] as a high-complexity laboratory under CLIA '88. These tests are used for clinical purposes and are not investigational. Notinfile Unknown LAB PATHOLOGY ORDERABLES Final Result * MAMMOGRAPHY (12/06/2018) Mammogram Normal Result [place] [facility] [facility] Historical Provider MD HEALTH MAINTENANCE Final Result * COLONOSCOPY (03/19/2013 8:29 AM CDT) Colonoscopy Normal Historical Provider MD HEALTH MAINTENANCE Final Result * DEXA SCAN (12/20/2008) DEXA Scan Unknown [facility] Provider MD HEALTH MAINTENANCE Final Result from Last 3 Months or Most Recently Relevant to Health Maintenance Insurance [facility] [employer] OPEN ACCESS [id number] [place], [place] [address] OPEN ACCESS [id number] [place] [address] Health As We Age [employer] OPEN ACCESS Care Teams Inspector Metal Can Relationship Specialty Start Date End Date Sara Vela MD [address] [address] [place] [address] PCP - General Family Practice 02/27/24 Augustin Goodson MD Referring Physician Nephrology 03/07/18 Leon Oneill MD [address] [place] [address] Referring Physician Hematology 03/07/18 Rick Rivas MD [address] [place] [address] Referring Physician Rheumatology 03/07/18 Wilian Sultana MD [address] [place] [address] [place] [address] Referring Physician Neurology 03/07/18 Renetta Sarabia MD [address] [place] [address] Referring Physician Family Practice 12/27/19 Prudence Gaines MD [address] [facility] [address] [place] [id number] Referring Physician Plastic Surgery 04/05/24
--- OUTSIDE RECORDS SUMMARY | 2024-09-06 10:46 | XMS_ITS | Clinical Summary ---
Author Organization [facility] Address [address] [place] [address] Phone Care Team Providers Care Center Receptionist Name Role Phone Sara Vela MD Primary Care Provider Allergies Active Allergy Reactions Criticality Noted Date Comments Amitriptyline Other (see comments) 08/31/2021 [place] drugged up a lot and felt strange [...] MG tablet 1 prn 0 05/23/2017 Active [place]-3 1000 MG capsule Take 1 capsule by [...] HERPES FLARE UP 07/08/2021 Active nystatin (MYCOSTATIN) 079278 UNIT/ML suspension ADMININSTER (5ML) EVERY 6 HOURS 1/2 OF DOSE IN EACH SIDE OF THE MOUTH. 07/07/2021 Active mirtazapine (REMERON) 15 MG tablet TAKE 1/2 (ONE-HALF) TABLET BY MOUTH TWICE DAILY 02/17/2022 Active mkgpevet-qijiqdphg-l ydrocortisone (CORTISPORIN) 3.5-46470-7 otic suspension INSTILL 4 DROPS INTO LEFT [...] Influenza Vaccine (#1) 2024 05/22/2020 Care Teams Center Receptionist Relationship Specialty Start Date End Date Sara Vela MD [address] [place] [address] PCP - General Internal Medicine 08/24/21
--- OUTSIDE RECORDS SUMMARY | 2024-09-06 10:46 | XMS_ITS | Encounter Summary ---
Author Organization [facility] Address [address] [facility] [place] [address] Phone Care Team Providers Care Medical Technologist Chemistry Name Role Phone Wilian Sultana MD Unavailable Darnell Bryant MD Unavailable Milly Celaya APRN, STORE OPERATIONS ASSOCIATE Primary Care Provider Unavailable Encounter Details Date Type Department Care Team (Late st Contact Info) Description 02/02/2023 Behavioral Health [facility] Survey [facility] Services 1 [place] [address] Justyn Miranda, [facility] [address] [place] [address] Social History Tobacco Use Types Packs/Day Years [...] st Contact Info) Description 09/19/2024 9:30 AM STRATEGIC PROCUREMENT MANAGER Telemedicine [facility] Behavioral Health Services [address] [place] [address] Justyn Miranda LCSW [address] [place] [address] Discharge Disposition: Discharged to home or Selfcare documented as of this encounter Goals Goal Patient Goal Type Associated Problems Recent Progress Patient-Stated? Author I need to be able to cope better with my grief and bitterness towards my family within the next six months Behavioral Health On track(2024 9:24 AM STRATEGIC PROCUREMENT MANAGER) Yes Justyn Miranda LCSW Note: Goal [...] Health Behavioral Health On track(2024 9:24 AM STRATEGIC PROCUREMENT MANAGER) No Justyn Miranda LCSW Note: Goal: [...] documented as of this encounter Care Teams Medical Technologist Chemistry Relationship Specialty Start Date End Date Milly Celaya, RENTAL COUNTER CLERK, STORE OPERATIONS ASSOCIATE [address] [place] [address] PCP - General Obstetrics & Gynecology 05/23/18 Wilian Sultana MD Consulting Physician Neurology 08/11/16 06/24/24 Darnell Bryant MD [place] [address] [place] [address] Psychiatry 03/16/18 documented as of this encounter
== END 2024-09-06 10:00 | disposition home or self-care (01) ==
PROVIDERS: PCP Family Medicine; Visit Provider Nurse Practitioner
DX: K76.0 Fatty (change of) liver, not elsewhere classified (principal)
CPT/HCPCS: 74176

== ENCOUNTER 2024-11-15 11:23 | Outpatient (CLI) | payer OTHER, MEDICARE, SELFPAY ==
[2024-11-15 11:52] LABS: Hematocrit 42.2 % (37.0-47.0); Hemoglobin 13.9 g/dL (12.0-15.0); Mean Corpuscular HGB Conc 32.9 g/dl (32-36); Mean Corpuscular Hemoglobin 29.3 pg (26-34); Mean Corpuscular Volume 88.8 fl (80-100); Mean Platelet Volume 11.1 fl (7.4-10.4); Platelet Count Result 232 k/mm3 (150-375); Red Blood Count 4.75 M/mm3 (4.2-5.4); Red Cell Distribution Width 13.2 % (11.5-14.5); White Blood Count 8.4 K/mm3 (4.5-10.0)
[2024-11-15 12:07] LABS: Albumin Level 4.4 g/dL (3.5-5.1); Anion Gap 12 mmol/L (4-12); Blood Urea Nitrogen 21 mg/dL (7-17); Calcium 9.4 mg/dL (8.4-10.2); Carbon Dioxide 20 mmol/L (22-30); Chloride 107 mmol/L (98-107); Estimated Glomerular Filt Rate 32; Glucose 151 mg/dL (65-110); Phosphorus 4.3 mg/dL (2.5-4.5); Potassium 4.3 mmol/L (3.4-5.0); Sodium 139 mmol/L (137-145)
[2024-11-15 12:11] LABS: Creatinine Urine 17.4 mg/dL; Total Protein Urine Random 16 mg/dL; Ur Ttl Prot Creatinine Ratio 0.92 mg/mg (0-0.20)
--- OUTSIDE RECORDS SUMMARY | 2024-11-15 12:14 | XMS_ITS | Encounter Summary ---
Author Organization [facility] Address [address] [facility] [place] [address] Phone Care Team Providers Care Powder Coater Name Role Phone Wilian Sultana MD Unavailable Darnell Bryant MD Unavailable Milly Celaya APRN, SLEEVE SETTER Primary Care Provider Unavailable Encounter Details Date Type Department Care Team (Late st Contact Info) Description 12/20/2023 [facility] 1 [place] [address] Justyn Miranda, LOCK EXPERT [address] [place] [address] Social History Tobacco Use Types Packs/Day Years [...] Care Team (Late st Contact Info) Description 11/22/2024 12:00 PM CDT [facility] 1 [place] [address] Justyn Miranda LCSW #[address] [place] [address] Discharge Disposition: Discharged to home or Selfcare documented as of this encounter Goals Goal Patient Goal Type Associated Problems Recent Progress Patient-Stated? Author I need to be able to cope better with my grief and bitterness towards my family within the next six months Behavioral Health On track(2024 9:49 AM CDT) Yes Justyn Miranda LCSW Note: Goal Reviewed today with: patient Readiness to change: Ready to change Department associated with goal: [facility] BEHAVIORAL HEALTH SERVICES Steps to achieve goal: Patient to be counseled on coping with grief, during her 45 min individual therapy sessions, 2-3 times per month Patient to be counseled on aspects of healthy self-care, during her 45 min individual sessions, 2-3 times per month Behavioral Health Behavioral Health On track(2024 9:49 AM CDT) No Justyn Miranda LCSW Note: Goal: Patient will be able to report improved mood/coping ability for family stressors/discord, to an acceptable level within the next six months Goal Reviewed today with: patient Readiness to change: Ready to change Department associated with goal: [facility] BEHAVIORAL HEALTH SERVICES Steps [...] documented as of this encounter Care Teams Powder Coater Relationship Specialty Start Date End Date Milly Celaya, RESIDENTIAL REAL ESTATE ASSISTANT, SLEEVE SETTER [facility] [address] PCP - General Obstetrics & Gynecology 05/23/18 Wilian Sultana MD Consulting Physician Neurology 08/11/16 06/24/24 Darnell Bryant MD [address] [place] [address] Psychiatry 03/16/18 documented as of this encounter
--- OUTSIDE RECORDS SUMMARY | 2024-11-15 12:14 | XMS_ITS | Encounter Summary ---
Author Organization [facility] Address [address] [place] [address] Phone Care Team Providers Care Oxygen Furnace Operator Name Role Phone Wilian Sultana MD Unavailable Darnell Bryant MD Unavailable Milly Celaya APRN, DIRECTOR OF CORPORATE SPONSORSHIPS Primary Care Provider Unavailable Encounter Details Date Type Department Care Team (Late st Contact Info) Description 05/22/2024 Behavioral Health [facility] 1 [place] [address] Justyn Miranda, DIRECTOR OF CLINICAL SERVICES #1 [place] [address] Social History Tobacco Use Types Packs/Day Years [...] [facility] Behavior[facility] Services 1 [place] [address] Justyn Miranda LCSW [address] [place] [address] Discharge Disposition: Discharged to home or Selfcare [...] Ready to change Department associated with goal: [facility] BEHAVIORAL HEALTH SERVICES Steps to achieve [...] Ready to change Department associated with goal: [facility] BEHAVIORAL HEALTH SERVICES Steps to achieve [...] documented as of this encounter Care Teams Oxygen Furnace Operator Relationship Specialty Start Date End Date Milly Celaya, APPLICATION TECHNICIAN, DIRECTOR OF CORPORATE SPONSORSHIPS [facility] [place] [address] PCP - General Obstetrics & Gynecology 05/23/18 Wilian Sultana MD Consulting Physician Neurology 08/11/16 06/24/24 Darnell Bryant MD [address] [place] [address] Psychiatry 03/16/18 documented as of this encounter
--- OUTSIDE RECORDS SUMMARY | 2024-11-15 12:14 | XMS_ITS | Encounter Summary ---
Author Organization [facility] Address [address] [facility] [place] [address] Phone Care Team Providers Care Emergency Management Program Specialist Name Role Phone Wilian Sultana MD Unavailable Darnell Bryant MD Unavailable Milly Celaya APRN, CHILD CARE EDUCATION COORDINATOR Primary Care Provider Unavailable Encounter Details Date Type Department Care Team (Late st Contact Info) Description 11/08/2023 Behavioral Health [facility] 1 [place] [address] Justyn Miranda, SPINNING MULE OPERATOR [address] [place] [address] Social History Tobacco Use Types Packs/Day Years [...] Info) Description 11/22/2024 12:00 PM CDT [facility]medicine [facility] 1 [place] [address] Justyn Miranda LCSW [address] [place] [address] Discharge Disposition: Discharged to home or Selfcare [...] Ready to change Department associated with goal: [facility] BEHAVIORAL HEALTH SERVICES Steps to [...] Ready to change Department associated with goal: [facility] BEHAVIORAL HEALTH SERVICES Steps to [...] documented as of this encounter Care Teams Emergency Management Program Specialist Relationship Specialty Start Date End Date Milly Celaya, EXPEDITIONARY FORCE COMBAT SKILLS, CHILD CARE EDUCATION COORDINATOR [place] [address] PCP - General Obstetrics & Gynecology 05/23/18 Wilian Sultana MD Consulting Physician Neurology 08/11/16 06/24/24 Darnell Bryant MD [address] [address] Psychiatry 03/16/18 documented as of this encounter
--- OUTSIDE RECORDS SUMMARY | 2024-11-15 12:14 | XMS_ITS | Clinical Summary ---
Author Organization [facility] Address [facility] [place] [address] Care Team Providers Care Transformation Analyst Name Role Phone Sara Vela MD Primary Care Provider Gin Toth MD Unavailable [phone] Augustin Goodson MD Unavailable [phone] Darnell Bryant MD Unavailable [phone] Leon Oneill MD Unavailable [phone] Rick Rivas MD Unavailable Allergies Active Allergy Reactions Criticality Noted Date Comments Tape Rash,Other (see comment) High 08/31/2021 Says the EKG leads being left on her skin caused 3rd degree nova of the skin. Amitriptyline Other (see comment) 08/31/2021 [place] drugged up a lot and felt strange [...] AM CDT Pulse 63 10/13/2021 11:17 AM EMERGENCY COMMUNICATIONS OFFICER Temperature 36.4 C (97.6 F) 10/13/2021 11:17 AM EMERGENCY COMMUNICATIONS OFFICER Respiratory Rate 18 10/13/2021 11:1 7 AM EMERGENCY COMMUNICATIONS OFFICER Oxygen Saturation 99% 10/13/2021 11: 17 AM EMERGENCY COMMUNICATIONS OFFICER Inhaled Oxygen Concentration - - Weight 71.1 kg (156 lb 12.8 oz) 11/26/2021 9:52 AM CDT Height 157.5 cm (5' 2 ) 11/26/2021 9:52 AM CDT Body Mass Index 28.68 11/26/2021 9:52 AM CDT Plan of Treatment Health Maintenance Due Date Last Done Comments Hepatitis C 1966 DTaP, Tdap and Td Vaccines ( 1 - Tdap) 1967 Zoster Vaccines (1 of 2) 1998 Annual Medicare Wellness Visit 2013 Dexa Scan (General) 2013 Pneumococcal Vaccine: 65+ Years (2 of 2 - PPSV23 or PCV20) 07/17/2021 09/08/2020, 07/17/2020 RSV Immunization or 60+ Years (1 - 1-dose 75+ series) 2023 COVID-19 Vaccine (2 - 2023-2 5 season) 2024 07/08/2021 Meningococcal B Vaccine Aged Out No l onger eligible based on patient's age to complete this topic Meningococcal Vaccine Aged Out No lavinia jose eligible based on patient's age to complete this topic RSV Immunizations Under 20 Months Aged Out No longer eligible b ased on patient's age to complete this topic Insurance [employer] Certain [employer] OPEN ACCESS [facility] Care Teams Transformation Analyst Relationship Specialty Start Date End Date Sara Vela MD [address] [place] [address] PCP - General FAMILY PRACTICE 07/07/21 Gin Toth MD [address] [facility] [address] [place] [address] CARDIOVASCULAR DISEASE 08/31/21 Augustin Goodson MD [address] [facility] [address] [place] [address] Referring Physician NEPHROLOGY 08/31/21 Darnell Bryant MD [facility] [place] [address] Psychiatry 08/31/21 Leon Oneill MD [address] [facility] [address] [place] [address] HEMATOLOGY/ONCOLOGY 08/31/21 Rick Rivas MD [address] [place] [address] Referring Physician RHEUMATOLOGY 08/31/21
--- OUTSIDE RECORDS SUMMARY | 2024-11-15 12:14 | XMS_ITS | Encounter Summary ---
Author Organization [facility] Address [address] [facility] [place] [address] Phone Care Team Providers Care Travel Writer Name Role Phone Darnell Bryant MD Unavailable Milly Celaya APRN, SOCIAL HUMAN SERVICES ASSISTANTS Primary Care Provider Unavailable Encounter Details Date Type Department Care Team (Late st Contact Info) Description 08/06/2024 [facility]al [facility] 1 [place] [address] Justyn Miranda, PHYSICAL THERAPY ASSISTANT INSTRUCTOR [address] [place] [address] Social History Tobacco Use Types Packs/Day Years [...] Info) Description 11/22/2024 12:00 PM CDT Telemedicine [facility] 1 [place] [address] Justyn Miranda, PHYSICAL THERAPY ASSISTANT INSTRUCTOR [address] [place] [address] Discharge Disposition: Discharged to home or Selfcare [...] Ready to change Department associated with goal: [facility] BEHAVIORAL HEALTH SERVICES Steps to achieve goal: Patient to be counseled on coping with grief, during her 45 min individual therapy sessions, 2-3 times per month Patient to be counseled on aspects of healthy self-care, during her 45 min individual sessions, 2-3 times per month Behavioral Health Behavioral Health On track(2024 9:49 AM CDT) No Justyn Miranda, CHRISTIANO Note: Goal: Patient will be able to report improved mood/coping ability for family stressors/discord, to an acceptable level within the next six months Goal Reviewed today with: patient Readiness to change: Ready to change Department associated with goal: [facility] BEHAVIORAL HEALTH SERVICES Steps to [...] documented as of this encounter Care Teams Travel Writer Relationship Specialty Start Date End Date Milly Celaya, MANAGER ORGANIZATIONAL, SOCIAL HUMAN SERVICES ASSISTANTS [address] [address] PCP - General Obstetrics & Gynecology 05/23/18 Darnell Bryant MD [address] [place] [address] Psychiatry 03/16/18 documented as of this encounter
--- OUTSIDE RECORDS SUMMARY | 2024-11-15 12:14 | XMS_ITS | CONTINUITY OF CARE DOCUMENT ---
Author Name dinorah copeland Address Unknown Organization [facility] Address [address] [place] [address] Phone [phone] Care Team Providers Care Bundle Shaker Name Role Phone Gregorio Parra MD Unavailable [phone] JAIME SOARES MD Unavailable JAIME SOARES MD [...] In-person encounter Office Visit Gregorio Parra MD [facility] VITAL SIGNS Date Observation Value Provider [...] Interpretation Location 1 calcium, serum 10.1 mg/dL [facility] 1 blood glucose, fasting 122 mg/dL [facility] 1 creatinine, serum 1.28 mg/dL [facility] 1 urea nitrogen, blood 16 mg/dL [facility] 1 carbon dioxide, serum, total 26.3 mmol/L [facility] 1 chloride, serum 107 mmol/L [facility] 1 potassium, serum 4.1 mmol/L [facility] 1 sodium, serum 141 mmol/L [facility] HISTORY OF MEDICATION USE Medication Status [...] L jessi with family/friends E thnicity: Gregorio Prara MD drug use none Gregorio Gilman social [...] Payer name Policy type / Coverage type Sandwich red libertarian ID [place] MED[place]ARE Medicare [id number] TREATMENT PLAN Date Name Performer FU test [...]
--- OUTSIDE RECORDS SUMMARY | 2024-11-15 12:14 | XMS_ITS | Clinical Summary ---
Author Organization [facility] utikylie Address [address] [place] [address] Phone Care Team Providers Care Watch Caser Name Role Phone Sara Vela MD Primary Care Provider Allergies Active Allergy Reactions Criticality Noted Date Comments Amitriptyline Other (see comments) 08/31/2021 [place] drugged up a lot and felt strange [...] 3rd degree nova of the skin. Medications HYDROcodone-karen taminophen (NORCO) 5-325 MG per tablet 1 prn 0 7 Active metoprolol succinate XL (TOPROL-XL) 25 MG 24 hr tablet 1 daily 0 7 Active valACYclovir (VALTREX) 500 MG tablet 1 prn 0 7 Active [place]-3 1000 MG capsule Take 1 capsule by mouth daily Active nitroglycerin (NITROSTAT) 0.[address] 0.4 mg under the tongue 9 Active cetirizine (ZyrTEC) 10 MG tablet Take 10 mg by mouth Active ALPRAZolam (XANAX) 0.5 MG tablet 0.5 mg 7 Active cyclobenzaprine (FLEXERIL) 5 MG tablet 5 mg 1 Active aspirin 325 MG tablet 325 mg 4 Active triamcinolone (KENALOG) 0.1 % cream Apply 30 g topically 2 times daily 9 Active Cholecalciferol (VITAMIN D3) 1000 units capsule Take by mouth Active Multiple Vitamins-Minera ls (PX COMPLETE SENIOR MULTIVITS) tablet Take 1 tablet by mouth Active methotrexate 2.5 MG tablet Take 12.5 mg by mouth per week Follow directions carefully, and ask to explain any part you do not understand. Take exactly as directed. Active Eliquis 2.5 MG tablet 1 Active escitalopram (LEXAPRO) 20 MG tablet TAKE 1 & 1/2 (ONE & ONE-HALF) TABLETS BY MOUTH ONCE DAILY 1 Active SUMAtriptan (IMITREX) 50 MG tablet TAKE 1 TABLET AT ONSET OF HEADACHE, IF NO RELIEF MAY REPEAT 1 TABLET AFTER AT LEAST 2 HOURS (MAX 4 TABLETS IN 24 HOUR) 2 Active Vitamins-Lipotr opics (B-100 Complex) tablet B-100 COMPLEX ORAL TABLET 9 Active valACYclovir (VALTREX) 1 g tablet TAKE 1 TABLET BY MOUTH EVERY 8 HOURS FOR 7 DAYS FOR HERPES FLARE UP 1 Active nystatin (MYCOSTATIN) 533007 UNIT/ML suspension ADMININSTER (5ML) EVERY 6 HOURS 1/2 OF DOSE IN EACH SIDE OF THE MOUTH. 1 Active mirtazapine (REMERON) 15 MG tablet TAKE 1/2 (ONE-HALF) TABLET BY MOUTH TWICE DAILY 2 Active neomycin-polymy allie-hydrocortis one (CORTISPORIN) 3.5-08458-6 otic suspension INSTILL 4 DROPS INTO LEFT EAR EVERY 8 HOURS FOR 7 DAYS 2 Active Lidocaine 1.8 % patch Apply 1 patch topically daily 2 Active Active Problems Problem Noted Date Diagnosed [...] without diagnosis of hypertension 02/14/2017 12/05/2020 Immunizations Immunization Administration Dates Next Due Influenza Injectable Mdck [...] at Not on file Legal Sex Female 7:44 AM [facility] Gender Identity Not on file Sexual Orientation Not on file Last Filed Vital Signs Vital Sign Reading Time Taken Comments Blood Pressure 124/70 03/08/2022 1:16 PM CDT Pulse 84 03/08/2022 1:16 PM CDT Temperature 36.4 C (97.5 F) 03/08/2022 1:16 PM CDT Respiratory Rate - - Oxygen Saturation - - Inhaled Oxygen Concentration - - Weight 78 kg (172 lb) 03/08/2022 1:16 PM CDT Height 157.5 cm (5' 2 ) 03/08/2022 1:16 PM CDT Body Mass Index 31.46 03/08/2022 1:16 PM CDT Plan of Treatment Health Maintenance Due Date Last Done Comments Pneumococcal PPSV23/PCV13 65 + Years / Low and Medium Risk (2 of 3 - PPSV23) 07/17/2021 07/17/2020 Influenza Vaccine (Season Ended) 2025 05/22/20 20 Insurance [employer] MEDICARE ADVANTAGE [employer] Care Teams Watch Caser Relationship Specialty Start Date End Date Sara Vela MD [address] [place] [address] PCP - General Internal Medicine 08/24/21
--- OUTSIDE RECORDS SUMMARY | 2024-11-15 12:14 | XMS_ITS | Encounter Summary ---
Author Organization [facility] Address [address] [facility] [place] [address] Phone Care Team Providers Care Econometrician Name Role Phone Wilian Sultana MD Unavailable [phone] Darnell Bryant MD Unavailable Milly Celaya APRN, PEDIATRIC DERMATOLOGIST Primary Care Provider Unavailable Encounter Details Date Type Department Care Team (Late st Contact Info) Description 03/05/2024 [facility] [address] [place] [address] Justyn Miranda, GRAPHITE GRINDER [address] [place] [address] Social History Tobacco Use Types Packs/Day Years [...] Info) Description 11/22/2024 12:00 PM CDT [facility] [address] [place] [address] Justyn Miranda LCSW [address] [place] [address] Discharge Disposition: Discharged to home or Selfcare [...] documented as of this encounter Care Teams Econometrician Relationship Specialty Start Date End Date Milly Celaya, CONTROL ROOM HELPER, PEDIATRIC DERMATOLOGIST [facility] [place] [address] PCP - General Obstetrics & Gynecology 05/23/18 Wilian Sultana MD Consulting Physician Neurology 08/11/16 06/24/24 Darnell Bryant MD [address] [place] [address] Psychiatry 03/16/18 documented as of this encounter
--- OUTSIDE RECORDS SUMMARY | 2024-11-15 12:14 | XMS_ITS | Encounter Summary ---
Author Organization [facility] Address [address] [facility] [place] [address] Phone Care Team Providers Care Fine Unhairer Name Role Phone Wilian Sultana MD Unavailable [phone] Darnell Bryant MD Unavailable Milly Celaya APRN, PULP DRIER FIRER Primary Care Provider Unavailable Encounter Details Date Type Department Care Team (Late st Contact Info) Description 02/02/2024 [facility] [address] [place] [address] Justyn Miranda, STATIONARY ENGINEER SUPERVISOR [address] [place] [address] Social History Tobacco Use Types Packs/Day Years [...] Info) Description 11/22/2024 12:00 PM CDT [facility] [address] [place] [address] Justyn Miranda LCSW #[address] [place] [address] Discharge Disposition: Discharged to home or Selfcare [...] Ready to change Department associated with goal: [facility] Steps to achieve [...] Ready to change Department associated with goal: [facility] Steps to achieve [...] documented as of this encounter Care Teams Fine Unhairer Relationship Specialty Start Date End Date Milly Celaya, TONGUE AND GROOVE MACHINE FEEDER, PULP DRIER FIRER [place] [address] PCP - General Obstetrics & Gynecology 05/23/18 Wilian Sultana MD Consulting Physician Neurology 08/11/16 06/24/24 Darnell Bryant MD [address] [address] Psychiatry 03/16/18 documented as of this encounter
--- OUTSIDE RECORDS SUMMARY | 2024-11-15 12:14 | XMS_ITS | Encounter Summary ---
Author Organization [facility] Address [address] [facility] [place] [address] Phone Care Team Providers Care Cattle Feeder Name Role Phone Wilian Sultana MD Unavailable Darnell Bryant MD Unavailable Milly Celaya APRN, COLOR CHECKER Primary Care Provider Unavailable Encounter Details Date Type Department Care Team (Late st Contact Info) Description 10/04/2023 [facility] 1 [place] [address] Justyn Miranda, PATROL CONDUCTOR [address] [place] [address] Social History Tobacco Use Types Packs/Day Years [...] Info) Description 11/22/2024 12:00 PM CDT [facility] [address] [place] [address] Justyn Miranda LCSW [address] [place] [address] Discharge Disposition: Discharged to home or Selfcare [...] Ready to change Department associated with goal: [facility] Steps [...] Ready to change Department associated with goal: [facility] Steps [...] documented as of this encounter Care Teams Cattle Feeder Relationship Specialty Start Date End Date Milly Celaya, CANAL TENDER, COLOR CHECKER [place] [address] PCP - General Obstetrics & Gynecology 05/23/18 Wilian Sultana MD Consulting Physician Neurology 08/11/16 06/24/24 Darnell Bryant MD [address] [address] Psychiatry 03/16/18 documented as of this encounter
--- OUTSIDE RECORDS SUMMARY | 2024-11-15 12:14 | XMS_ITS | Encounter Summary ---
Author Organization [facility] Address [address] [facility] [place] [place] [address] Phone Care Team Providers Care Electric Refrigerator Servicer Name Role Phone Wilian Sultana MD Unavailable Darnell Bryant MD Unavailable Milly Celaya APRN, NON DESTRUCTIVE TESTING SCIENTIST Primary Care Provider Unavailable Encounter Details Date Type Department Care Team (Late st Contact Info) Description 04/05/2024 Behavioral Health [facility] 1 [place] [address] Justyn Miranda, CROP PRODUCTION ADVISOR [address] [place] [address] Social History Tobacco Use Types Packs/Day Years [...] Description 11/22/2024 12:00 PM CDT Telemedicine [facility] 1 [place] [address] Justyn Miranda LCSW [address] [place] [address] Discharge Disposition: Discharged to home or Selfcare [...] to change Department associated with goal: [facility] Steps to achieve goal: [...] to change Department associated with goal: [facility] Steps to achieve goal: [...] documented as of this encounter Care Teams Electric Refrigerator Servicer Relationship Specialty Start Date End Date Milly Celaya, PRODUCTION SKI REPAIRER, NON DESTRUCTIVE TESTING SCIENTIST [place] [address] PCP - General Obstetrics & Gynecology 05/23/18 Wilian Sultana MD Consulting Physician Neurology 08/11/16 06/24/24 Darnell Bryant MD [address] [place] [address] Psychiatry 03/16/18 documented as of this encounter
--- OUTSIDE RECORDS SUMMARY | 2024-11-15 12:14 | XMS_ITS | Encounter Summary ---
Author Organization [facility] [id number] [facility] Address [address] [place] [address] Care Team Providers Care Format Proofreader Name Role Phone Renetta Sarabia MD Primary Care Provider Reason for Visit * Reason Onset Date Comments lab orders 07/13/2022 Encounter Details Date Type Department Care Team (Late st Contact Info) Description 07/13/2022 Telephone [facility] Oncology and Hematology - [place] [address] [place] [address] [address] [place] [address] Leon Oneill MD [address] [facility] [address] [place] [address] lab orders Social History Tobacco [...] Renetta Faith RN - 07/13/2022 10:28 AM ROTARY DERRICK OPERATOR No labs ordered for this patient at last visit. 1 year F/U. I pended CBC, CMP, Immunoglobulins. Please add any other orders needed. RY DERRICK OPERATOR documented in this encounter Plan of Treatment Upcoming Encounters Date Type Department Care Team (Late st Contact Info) Description 07/22/2025 1:00 PM ROTARY DERRICK OPERATOR Office Visit [facility] Oncology and Hematology - [place] [address] [facility] [address] [place] [address] Leon Oneill MD [address] [facility] [address] [place] [address] documented as of this encounter Visit Diagnoses Diagnosis Hypogammaglobulinemia- Primary Hypogammaglobulinaemia, unspecified documented in this encounter Care Teams Format Proofreader Relationship Specialty Start Date End Date Renetta Sarabia MD PCP - General Family Practice 12/21/19 documented as of this encounter
--- OUTSIDE RECORDS SUMMARY | 2024-11-15 12:14 | XMS_ITS | Continuity of Care Document ---
Author Organization [facility] Address [address] [place] [address] [place] [address] Phone Care Team Providers Care Home Health Provider Name Role Phone Marcus Redmond Unavailable Unavailable [...] Providers Copied on Encounter Office/outpat ient Visit, [facility], [address] [place] [address] [address], [place], [place], [id number], [place] tel:[phone] [facility] [place] No Information 9-201 0 Nyla Velazquez. [address] , [address], [place], [place], [facility], . tel:[phone] Office/outpat ient Visit, [facility], [address] [place] [address] [address], [place], [place], [id number], [place] tel:[phone] [facility] [place] No Information 1-200 9 Hali Barahona. [address] , [address], [place], [address], . tel:[phone] Office/outpat ient Visit, [facility], [address] [place] [address] [address], [place], [place], [id number], [place] tel:[phone] [facility] [place] No Information May-0 7-200 9 Lal [place]. [address], [place], [place], [facility], . tel:[phone] Office/outpat ient Visit, [facility], [address] [place] [address] [address], [place], [place], [id number], [place] tel:[phone] [facility] [place] No Information Apr-2 7-200 9 Trey Grimaldohil. [address], [place], [place], [facility], . tel:[phone] [facility], [address] [place] [address] [address], [place], [place], [id number], tel:[phone] [facility] [place] No Information Nov-2 3-200 9 Hali Barahnoa. [address] , [address], [place], [place], [facility], . tel:[phone] [facility], [address] [place] [address] [address], [place], [place], [id number], tel:[phone] [facility] [place] No Information Ish-2 0-200 9 Hall OD Darnell. [address] , [address], [place], [place], [facility], [place]. tel:[phone] [facility], [address] [place] [address] [address], [place], [place], [id number], [place] tel:[phone] SEC [facility] No Information Feb-2 8-200 7 Hall OD Darnell. [address] , [address], [place], [place], [facility], . tel:[phone] Family History Family Member Type Diagnosis Age [...]
--- OUTSIDE RECORDS SUMMARY | 2024-11-15 12:14 | XMS_ITS | Encounter Summary ---
Author Organization [facility] Address [address] [place] [address] Care Team Providers Care Wirer Maintenance Name Role Phone Sara Vela MD Primary Care Provider Gin Toth MD Unavailable [phone] Augustin Goodson MD Unavailable [phone] Darnell Bryant MD Unavailable [phone] Leon Oneill MD Unavailable [phone] Rick Rivas MD Unavailable Encounter Details Date Type Department Care Team (Late st Contact Info) Description 11/19/2021 MyChart Message Enc [facility] Orthopedic & Sports Medicine - [place] [id number] Rudy Velasquez MD I need help please Social History Tobacco [...] on filedocumented in this encounter Care Teams Wirer Maintenance Relationship Specialty Start Date End Date Sara Vela MD [address] [place] [address] PCP - General FAMILY PRACTICE 07/07/21 Gin Toth MD [address] [facility] [address] [place], [place] [id number] CARDIOVASCULAR DISEASE 08/31/21 Augustin Goodson MD [address] [facility] [place] [place] [address] [place] [address] Referring Physician NEPHROLOGY 08/31/21 Darnell Bryant MD [facility] in Psychiatry [address] [facility] [place], [place] [address] Psychiatry 08/31/21 Leon Oneill MD [address] [facility] [address] [place] [address] HEMATOLOGY/ONCOLOGY 08/31/21 Rick Rivas MD [address] [place] [address] Referring Physician RHEUMATOLOGY 08/31/21 documented as of this encounter
--- OUTSIDE RECORDS SUMMARY | 2024-11-15 12:14 | XMS_ITS | Encounter Summary ---
Author Organization [facility] Address [address] [facility] [address] [place] [address] Care Team Providers Care Dress Operator Name Role Phone Leon Chandler MD Primary Care Provider [phone] Leon Chandler MD Primary Care Provider [phone] Milly Celaya NP Primary Care Provider [phone] Augustin Goodson MD Unavailable [phone] Leon Oneill MD Unavailable [phone] Rick Rivas MD Unavailable Gin Toth MD Unavailable [phone] Wilian Sultana MD Unavailable [phone] No, Physician Primary Care Provider [phone] Renetta Sarabia MD Primary Care Provider [phone] Renetta Sarabia MD Unavailable [phone] Renetta Sarabia MD Primary Care Provider [phone] Sara Vela MD Primary Care Provider Prudence Gaines MD Unavailable [phone] Encounter Details Date Type Department Care Team (Late st Contact Info) Description 08/25/2016 Orders Only [facility] ProviderMitchell MD [address] [place] [address] Social History Tobacco Use Types Packs/Day Years Used Date Smoking Tobacco: Never Alcohol Use Standard Drinks/Week Comments No 0 (1 standard drink = 0.6 oz pur e alcohol) Comments Unknown Sex and Gender Information Value Date Recorded Sex Assigned at Not on file Legal Sex Female 7:06 AM WASTE TREATMENT OPERATOR Gender Identity Female 06/12/2021 1:30 PM [...] on filedocumented in this encounter Care Teams Dress Operator Relationship Specialty Start Date End Date Leon Chandler MD PCP - General 11/05/16 03/06/18 Leon Chandler MD PCP - General 02/25/14 11/04/16 Milly Celaya NP [address] [place] [address] PCP - General Family Medicine 03/07/18 11/08/19 No, Physician PCP - General 11/09/19 12/26/19 Renetta Sarabia MD PCP - General Family Practice 12/27/19 12/27/19 Renetta Sarabia MD PCP - General Family Practice 01/03/20 09/21/21 Sara Vela MD [address] [facility] 2 [place] [address] PCP - General Family Practice 02/27/24 Augustin Goodson MD [address] [place] [address] 200 [place] [address] Referring Physician Nephrology 03/07/18 Leon Oneill MD [address] [facility] [address] [place] [address] Referring Physician Hematology 03/07/18 Rick Rivas MD [address] [facility] [address] [place] [address] Referring Physician Rheumatology 03/07/18 Gin Toth MD [address] [facility] [address] [place] [address] Consulting Physician Cardiology 03/07/18 02/26/24 Wilian Sultana MD [address] [facility] [address] [place] [address] Referring Physician Neurology 03/07/18 Renetta Sarabia MD Referring Physician Family Practice 12/27/19 Prudence Gaines MD [address] [facility] 22 [place] [address] Referring Physician Plastic Surgery 04/05/24 documented as of this encounter
--- OUTSIDE RECORDS SUMMARY | 2024-11-15 12:14 | XMS_ITS | Data Portability ---
Author Organization [facility] Address [address] [place] [address] Assessment No assessment recorded. Plan of Treatment Reminders Order Date Submit Date Provider Last Modified By Organization Details Last Modified Time Details Appointments None recorded. 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 Procedures None recorded. Surgeries None recorded. Imaging None recorded. Medication Orders None recorded. Patient TargetsNo targets recorded. Patient Instructions Encounter Date Encounter Id Patient Instructions Last Modified By Organization Details Last Modified Time 12/17/2019 [id number] Reviewed the following recommendations: -Stay home and separate from others as much as possible. -Monitor your symptoms and seek medical attention for trouble breathing, persistent chest pain, confusion, or bluish lips or face. -Wear a mask if you must be around other people. -Wash your hands often for 20 seconds with soap and water and clean high-touch surfaces daily -You may discontinue home isolation if your symptoms are improving, it has been 7 days since symptoms started, and you have been fever free for at least 3 days. [email or web address] Not available 12/17/2019 16:32:49 Reason for Referral None Reported. Medical Equipment None Reported. Medications Name Sig Start Date Stop Date Status Note LastModified by Organization Details LastModified Time amoxicillin 500 mg capsule TAKE 1 CAPSULE BY MOUTH EVERY 8 HOURS active Not Available Not Available No t Available cetirizine 10 mg tablet TAKE 1 TABLET BY MOUTH ONCE DAILY active Not Available Not Available No t Available azithromycin 250 mg tablet TAKE 2 TABLETS BY MOUTH ON DAY 1, AND THEN TAKE 1 TABLET BY MOUTH ONCE A DAY ON DAY 2 THROUGH DAY 5 active Not Available Not Available No t Available fluconazole 150 mg tablet TAKE 1 TABLET BY MOUTH ONCE. active Not Available Not Available Not Available benzonatate 200 mg capsule TAKE 1 CAPSULE BY MOUTH THREE TIMES DAILY NEEDED active Not Available Not Available No t Available valacyclovir 1 gram tablet TAKE 1 TABLET BY MOUTH EVERY 8 HOURS FOR 7 DAYS NEEDED FOR HERPES FLARE UPS active Not Available Not Available No t Available metronidazol e 0.75 % (37.5 mg/5 gram) vaginal gel active Not Available Not Available Not Available prednisone 5 mg tablet TAKE 3 TABLETS BY MOUTH IN THE MORNING FOR 1 WEEK,THEN TAKE 2 TABLETS EVERY MORNING FOR 1 WEEK,THEN TAKE 1 TABLET EVERY MORNING FOR 1 WEEK THEN DISCONTINUE . active Not Available Not Available No t Available sumatriptan 50 mg tablet TAKE 1 TABLET BY MOUTH AT ONSET OF HEADACHE: IF NO RELIEF MAY REPEAT 1 TABLET AFTER AT LEAST 2 HOURS.(MAX 4 TABLETS IN 24 HOUR PERIOD) active Not Available Not Available No t Available prochlorpera zine maleate 10 mg tablet TAKE 1 TABLET BY MOUTH EVERY 8 HOURS NEEDED FOR NAUSEA active Not Available Not Available No t Available ciprofloxaci n 500 mg tablet TAKE 1 TABLET BY MOUTH EVERY 12 HOURS active Not Available Not Available No t Available hydrocodone 10 mg-acetamino phen 325 mg tablet TAKE 1 TABLET BY MOUTH FOUR TIMES A DAY NEEDED FOR PAIN active Not Available Not Available No t Available alprazolam 0.5 mg tablet TAKE 1 TABLET BY MOUTH FOUR TIMES A DAY active Not Available Not Available Not Available prednisolone acetate 1 % eye drops,suspen nae INSTILL 1 DROP THREE TIMES DAILY STARTING AFTER SURGERY, CONTINUE FOR 3 WEEKS active Not Available Not Available Not Available methotrexate sodium 2.5 mg tablet TAKE 5 TABS BY MOUTH ONCE WEEKLY active Not Available Not Available Not Available ciprofloxaci n 0.3 % eye drops INSTILL 1 DROP THREE TIMES DAILY INTO SURGICAL EYE BEGINING 2 DAYS PRIOR TO SURGERY, CONTINUE FOR 1 WEEK AFTER active Not Available Not Available No t Available benzonatate 100 mg capsule TAKE 1 CAPSULE BY MOUTH THREE TIMES DAILY NEEDED FOR COUGH active Not Available Not Available No t Available diclofenac 0.1 % eye drops INSTILL 1 DROP THREE TIMES DAILY INTO SURGICAL EYE BEGINNING 2 DAYS PRIOR TO SURGERY, CONTINUING FOR 2 WEEKS AFTER active Not Available Not Available No t Available triamcinolon e acetonide 0.1 % topical ointment APPLY OINTMENT TOPICALLY TO AFFECTED AREA TWICE DAILY FOR 7 DAYS active Not Available Not Available No t Available clotrimazole -betamethaso ne 1 %-0.05 % topical cream APPLY TOPICALLY TWICE A DAY active Not Available Not Available Not Available losartan 25 mg tablet TAKE 1 TABLET BY MOUTH ONCE DAILY active Not Available Not Available No t Available folic acid 1 mg tablet TAKE 5 TABS BY MOUTH EVERY MORNING active Not Available Not Available No t Available metoprolol succinate ER 25 mg tablet,exten ded release 24 hr TAKE 1 TABLET BY MOUTH TWICE DAILY active Not Available Not Available No t Available methylpredni solone 4 mg tablets in a dose pack TAKE BY MOUTH DIRECTED ON INSIDE OF PACKAGE active Not Available Not Available No t Available albuterol sulfate HFA 90 mcg/actuatio n aerosol inhaler INHALE 1 PUFF BY MOUTH EVERY 4 HOURS NEEDED FOR SHORTNESS OF BREATH FOR WHEEZING active Not Available Not Available No t Available fluticasone propionate 50 mcg/actuatio n nasal spray,suspen nae USE 2 SPRAY(S) IN EACH NOSTRIL ONCE DAILY active Not Available Not Available N ot Available amoxicillin 875 mg-potassium clavulanate 125 mg tablet TAKE 1 TABLET BY MOUTH TWICE DAILY active Not Available Not Available No t Available oxycodone 5 mg tablet active Not Available Not Available No t Available cyclobenzapr ine 5 mg tablet TAKE 1 TABLET BY MOUTH THREE TIMES A DAY NEEDED FOR MUSCLE SPASMS active Not Available Not Available No t Available ciprofloxaci n 0.3 %-dexamethas one 0.1 % ear drops,suspen nae INSTILL 4 DROPS INTO RIGHT EAR EVERY 12 HOURS active Not Available Not Available No t Available sodium,potas sium,mag sulfates 17.5 gram-3.13 gram-1.6 gram oral soln TAKE DIRECTED PER DR HERRMANN S WRITTEN INSTRUCTION S active Not Available Not Available No t Available lidocaine 5 % topical ointment APPLY TOPICALLY UP TO 6 TIMES DAILY NEEDED FOR PAIN RELIEF active Not Available Not Available No t Available Farxiga 5 mg tablet TAKE 1 TABLET BY MOUTH IN THE MORNING active Not Available Not Available Not Available Nuvessa 1.3 % (65 mg/5 gram) vaginal gel INSERT 1 APPLICATORF UL VAGINALLY ONCE A SINGLE DOSE AT BEDTIME active Not Available Not Available N ot Available BinaxNOW COVID-19 Ag Self Test kit TEST DIRECTED TODAY active Not Available Not Available No t Available Vitals None Recorded Social History None recorded. Functional Status None recorded. Mental Status None recorded. Family History Nothing Reported. Medical History No medical history recorded. Gynecological HistoryNo gynecological history recorded. Obstetrics History GPAL:G 0 P 0 0 0 0 Past Encounters Encounter ID Performer Location Encounter Start Date Encounter Closed Date Diagnosis/Indication Diagnosis SNOMED-CT Code Diagnosis ICD10 Code Diagnosis Note [id number] DAMASO JEAN [address] [place] [address] 12/17/2019 16:27:38 12/18/2019 08:40:26 Cough [id number] R05 Health Concerns Section Related Observation LastModified by Organization Detai ls LastModified Time None Recorded Concern Status LastModified by Organization Details LastModified Time None Recorded Advance Directives Directive None Recorded Payers Encounter Date Sequence Insurance Name Policy Number Policy Omer Covered Member ID Omer Member ID Guarantor Name 12/17/2019 1 [place] Kemi Espinosa [id number] Kemi Espinosa Notes Date Note Type Note Provider Name and Address Organization Details Recorded Time 12/17/2019 text/html COVID ScreeningReported bypatient.Onset/Durati on of fever:no fever Associated Symptoms:cough; no shortness of breath ComorbiditiesHeart Disease; age greater than 65 years old; other comorbidities (renal insufficency)COVID-19 Symptoms October 2019Reported bypatient.COVID-19 Signs and Symptomscough worsening; fever resolved; shortness of breath resolved Quality:dry cough Associated Symptoms:no sputum production; no shortness of breath; no wheezing; no fever; no runny nose; no sore throat; no vomiting; no diarrhea; no body aches; no nausea; no change in mental status; no hypotension; no tachycardia pt complains of worsening cough and chills and wants to be tested MADIE MATTHEW NP Attn: Accounting,[address] [place], [address], [facility] 12/17/2019 16:33:18 OBGyn Episode No OBEpisode recorded.
--- OUTSIDE RECORDS SUMMARY | 2024-11-15 12:14 | XMS_ITS | Clinical Summary ---
Author Organization [facility] Address [address] [place] [address] Care Team Providers Care Billet Grinder Name Role Phone Augustin Goodson MD Unavailable [phone] Leon Oneill MD Unavailable [phone] Rick Rivas MD Unavailable Wilian Sultana MD Unavailable [phone] Renetta Sarabia MD Unavailable [phone] Sara Vela MD Primary Care Provider Prudence Gaines MD Unavailable [phone] Allergies Active Allergy Reactions Criticality Noted Date Comments Adhesive Other (See comments),Rash High 08/31/2021 Says the EKG leads being left on her skin caused 3rd degree nova of the skin. Amitriptyline Other (See comments) 08/31/2021 [place] drugged up a lot and felt strange when on amitriptyline for migraines Hydromorphone Anaphylaxis High 01/21/2017 Hr dropped to 13 Lamotrigine Hives,Urticaria Medium 11/15/2016 Levofloxacin Anaphylaxis High 01/21/2017 Lisinopril Shortness of breath,Palpitations High 01/04/2019 Other Unknown 09/27/2016 IV DYE Paroxetine Hcl Swelling Medium 10/20/2016 Penicillins Rash Medium 09/27/2016 Prednisone Palpitations High 12/06/2018 Sulfa (Sulfonamide Antibiotics) Anaphylaxis,Rash High 04/05/2019 Sulfamethoxazole-Trim ethoprim Anaphylaxis High 03/16/2018 Medications aspirin 325 mg tablet take 1 tablet by oral route every day 0 0 02/26/20 14 Active ALPRAZolam (XANAX) 0.5 mg tablet take 1 tablet by oral route 3 times every day 0 0 08/30/19 17 Active ascorbic acid (VITAMIN C) 500 mg tablet,chewable Take 1 tablet/chew tab (500 mg total) by mouth daily Active ondansetron ODT (ZOFRAN-ODT) 4 mg disintegrating tablet 01/10/20 21 Active multivitamin with minerals tablet Take 1 tablet by mouth daily Active nitroglycerin (NITROSTAT) 0.4 mg SL tabletIndications :acute episode of anginal pain Place 1 tablet (0.4 mg total) under the tongue every 5 (five) minutes as needed for chest pain 25 tablet 11 08/17/19 22 Active losartan (COZAAR) 25 mg tablet Take 1 tablet (25 mg total) by mouth daily 09/25/19 24 Active cyclobenzaprine (FLEXERIL) 5 mg tablet Take 1 tablet (5 mg total) by mouth as needed for muscle spasms 09/15/19 24 Active acyclovir (ZOVIRAX) 400 mg tablet Take 1 tablet (400 mg total) by mouth every 4 (four) hours while awake Active metoprolol XL (TOPROL-XL) 25 mg extended release tabletIndications :Palpitations Take 1 tablet by mouth twice daily 180 tablet 2 04/10/20 24 Active albuterol HFA (PROVENTIL HFA,VENTOLIN HFA,PROAIR HFA) 90 mcg/actuation inhaler INHALE 1 PUFF BY MOUTH EVERY 4 HOURS NEEDED FOR SHORTNESS OF BREATH FOR WHEEZING Active dicyclomine (BENTYL) 10 mg capsule Take 1 capsule (10 mg total) by mouth 2 (two) times a day 10/27/19 25 Active Jardiance 10 mg tablet Take 1 tablet (10 mg total) by mouth every morning 10/30/19 25 Active famotidine (PEPCID) 20 mg tablet Take 1 tablet (20 mg total) by mouth 2 (two) times a day Active HYDROcodone-aceta minophen (NORCO) 10-325 mg per tablet Take 1 tablet by mouth 11/01/[address] (CYMBALTA) 30 mg capsuleIndication s:Neuropathic Pain Take 1 capsule (30 mg total) by mouth daily 90 capsule 3 11/07/19 25 2025 Active HYDROcodone-aceta minophen (VICODIN) 10-300 mg per tablet every 6 hours 09/25/19 21 2024 Discontinued(P atient Reported) amitriptyline (ELAVIL) 25 mg tablet Take 1 tablet (25 mg total) by mouth nightly 08/12/19 25 2024 Discontinued(P atient Reported) apixaban (Eliquis) 2.5 mg tablet Take 1 tablet (2.5 mg total) by mouth 02/06/202024 Discontinued(P atient Reported) citalopram (CeleXA) 10 mg tablet Take 1 tablet (10 mg total) by mouth daily 2024 Discontinued(P atient Reported) folic acid (FOLVITE) 1 mg tablet TAKE 5 TABS BY MOUTH EVERY MORNING 2024 Discontinued(P atient Reported) SUMAtriptan (IMITREX) 50 mg tablet TAKE 1 TABLET BY MOUTH AT ONSET OF HEADACHE: IF NO RELIEF MAY REPEAT 1 TABLET AFTER AT LEAST 2 HOURS.(MAX 4 TABLETS IN 24 HOUR PERIOD) 08/19/19 22 2024 Discontinued(P atient Reported) methotrexate 2.5 mg tablet TAKE 5 TABS BY MOUTH ONCE WEEKLY 2024 Discontinued(P atient Reported) amitriptyline (ELAVIL) 10 mg tablet Take 1 tablet (10 mg total) by mouth nightly as needed for sleep 2024 Discontinued Active Problems Problem Noted Date Diagnosed Date Complex regional pain syndro me type 2 of right upper extremity 11/06/2024 Neuropathic pain 11/06/2024 Spell of generalized weakness 10/04/2022 History of [...] 12/26/2018 Assessment & Plan (10/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 [address] [place] [address] Altagracia Laura MD PhD Complex regional pain syndrome type 2 of right upper extremity (Primary Dx); Ulnar neuropathy of right upper extremity; Neuropathic pain Discharge Disposition: Discharge to home or self care 10/30/2024 11:30 AM CDT Therapy [facility] [address] [place] [address] Aaliyah Koenig DPT 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) 10/23/2024 11:30 AM CDT Therapy [facility] [address] [place] [address] Aaliyah Koenig DPT 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) 10/16/2024 10:30 AM CDT Therapy [facility] [address] [place] [address] Aaliyah Koenig DPT 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) 10/11/2024 1:00 PM MARBLE MACHINE OPERATOR Therapy [facility] [address] [place] [address] Aaliyah Koenig DPT 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) 10/04/2024 1:15 PM MARBLE MACHINE OPERATOR Office Visit [facility] [address] [place] [address] [place] [address] Telma Frost MD 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) 10/02/2024 11:30 AM MARBLE MACHINE OPERATOR Therapy [facility] [address] [place] [address] [place] [address] Mimi Coelho DPT 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) 09/26/2024 Telephone [facility] [address] [place] [address] [place] [address] Aaliyah Koenig DPT patient question 09/17/2024 2:00 PM MARBLE MACHINE OPERATOR Therapy [facility] [address] [place] [address] Aaliyah Koenig, DPT 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) 09/13/2024 Plan of Care Documentation [facility] [address] [place] [address] 6th [place] [address] 09/11/2024 11:30 AM MARBLE MACHINE OPERATOR Therapy [facility] [address] [place] [address] Aaliyah Koenig, AVELINO 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); 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, right 09/07/2024 1:00 PM MARBLE MACHINE OPERATOR Therapy [facility] [address] [place] [address] Mimi Coelho DPT 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) 08/31/2024 10:30 AM MARBLE MACHINE OPERATOR Therapy [facility] [address] [place] [address] Mimi Coelho, DPT 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) 08/24/2024 11:30 AM MARBLE MACHINE OPERATOR Therapy [facility] [address] [place] [address] Mimi Coelho, DPT 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 Hx Other Medical [place] Anxiety disorder Anxiety Hx Other Medical Back Injury Arthritis Cataract Depression Migraines Hypertension Thyroid disease Ear problems Heart disease Chronic kidney disease Neuromuscular disorder (HCC) Family History Medical History Relation Name Comments Brain cancer Father Brain tumor; Ca use of : Brain tumor Alcohol abuse Mother Erin Breast cancer Mother Erin Cancer, breast ; Cause of : Cancer, breast COPD Mother [place] Cancer Mother Erin Depression Mother Erin Hypertension [...] drink = 0.6 oz pur e alcohol) AUDIT-C Answer Date Recorded Q1: How often do you have a drink containing alcohol? Never 11/06/2024 Q2: How many drinks containi ng alcohol do you have on a typical day when you are drinking? Patient does not drink Q3: How often do you have si x or more drinks on one occasion? Never 11/06/2024 PHQ-2 Answer Date Recorded PHQ-2 Score 0 03/30/2019 Comments Unknown Sex and Gender Information Value Date Recorded Sex Assigned at Not on file Legal Sex Female 7:06 AM MARBLE MACHINE OPERATOR Gender Identity Female 06/12/2021 1:30 PM CDT Sexual Orientation Not on file Obstetrics History Last Filed Vital Signs Vital Sign Reading Time Taken Comments Blood Pressure 141/73 11/06/2024 10:03 AM CDT 82 Pulse 59 11/06/2024 10:03 AM CDT Temperature 36.3 C (97.3 F) 11/06/2024 10:03 AM CDT Respiratory Rate 10 11/06/2024 10:03 AM CDT Oxygen Saturation 98% 11/06/2024 10:03 AM CDT Inhaled Oxygen Concentration - - Weight 70.1 kg (154 lb 9.6 oz) 11/06/2024 10:03 AM CDT Height 157.5 cm (5' 2 ) 11/06/2024 10:03 AM CDT Body Mass Index 28.28 11/06/2024 10:03 AM CDT Plan of Treatment Health Maintenance Due Date Last Done Comments Hepatitis C Screening 1950 DTaP/Tdap/Td Vaccine (1 - Tdap) 1959 Hepatitis B Screening 1966 Zoster Vaccine (1 of 2) 1967 Osteoporosis Screening-Bone Density Scan 12/20/2010 12/20/2008 Well Visit 65+ 12/27/2019 12/26/2018, 09/21/2018 Depression Screening 03/22/2020 03/22/2019, 12/26/2018, 12/26/2018, Additional history exists Fall Risk Assessment 03/22/2020 03/22/2019, 12/26/2018, 11/29/2018, Additional history exists Influenza Vaccine (Season Ended) 2025 05/22/20 20 Colon Cancer Screening-CT Colonography Discontinued 03/19/2013 Colon Cancer Screening-Colonoscopy Discontinued 03/19/2013 Colon Cancer Screening-DNA Stool Discontinued 03/19/20 13 Colon Cancer Screening-FIT Discontinued 03/19/2013 Colon Cancer Screening-FOBT Discontinued 03/19/2013 Colon Cancer Screening-Sigmoidoscopy Discontinued 03/19/2013 Colorectal Cancer Screening Discontinued Breast Cancer Screening-Mammogram Discontinued 019, 12/02/2017 Goals Goal Patient Goal Type Associated Problems Recent Progress Patient-Stated? Author CCM Chronic Pain Care Plan Chronic Care Management Jose M Gutierrez, RN Note: Problem: Chronic Pain Goals: 1. Minimize further functional decline 2. Maximize quality of life 3. Control pain Strategies: - Activity/exercise program recommendation - Conservative stepwise pain medicine strategy with multi-disciplinary approach - Recommend healthy lifestyle strategies and compensatory methods as needed Procedures Procedure Name Priority Date/Time Associated Diagnosis Comments MAMMOGRAPHY Routine 12/06/2018 COLONOSCOPY Routine 03/19/2013 8:29 AM CDT DEXA SCAN Routine 12/20/2008 from Last 3 Months or Most Recently Relevant to Health Maintenance Results * MAMMOGRAPHY (12/06/2018) Mammogram Normal us Historical Provider HEALTH MAINTENANCE Final Result * COLONOSCOPY (03/19/2013 8:29 AM CDT) Colonoscopy Normal us Historical Provider HEALTH MAINTENANCE Final Result * DEXA SCAN (12/20/2008) DEXA Scan Unknown Historical Provider HEALTH MAINTENANCE Final Result from Last 3 Months or Most Recently Relevant to Health Maintenance Insurance [facility] [employer] [facility] [employer] HE[employer]LINK OPEN ACCESS [facility] HEALTHLINK OPEN ACCESS Care Teams Billet Grinder Relationship Specialty Start Date End Date Sara Vela MD [facility] [place] MD [address] [place] [address] PCP - General Family Practice 02/27/24 Augustin Goodson MD Referring Physician Nephrology 03/07/18 Leon Oneill MD [address] [facility] [address] [place] [address] Referring Physician Hematology 03/07/18 Rick Rivas MD [address] [place] [address] Referring Physician Rheumatology 03/07/18 Wilian Sultana MD 1 [facility] [address] [place] [address] Referring Physician Neurology 03/07/18 Renetta Sarabia MD [address] [facility] [address] [place] [address] Referring Physician Family Practice 12/27/19 Prudence Gaines MD [address] [facility] [address] [place] [address] Referring Physician Plastic Surgery 04/05/24
--- OUTSIDE RECORDS SUMMARY | 2024-11-15 12:14 | XMS_ITS | Encounter Summary ---
Author Organization [facility] - [facility] Address [facility] [place] [address] Care Team Providers Care Center Director Name Role Phone Sara Vela MD Primary Care Provider Gin Toth MD Unavailable [phone] Augustin Goodson MD Unavailable [phone] Darnell Bryant MD Unavailable [phone] Leon Oneill MD Unavailable [phone] Rick Rivas MD Unavailable Encounter Details Date Type Department Care Team (Late st Contact Info) Description 01/26/2022 [employer] Insight Message [facility] Patient Accounts [address] [place] [address] [facility] Provider Payment Plan - Past due Social [...] on filedocumented in this encounter Care Teams Center Director Relationship Specialty Start Date End Date Sara Vela MD [address] [place] [address] PCP - General FAMILY PRACTICE 07/07/21 iGn Toth MD [address] [facility] [address] [place] [address] CARDIOVASCULAR DISEASE 08/31/21 Augustin Goodson MD [address] [facility] [address] [place] [address] Referring Physician NEPHROLOGY 08/31/21 Darnell Bryant MD [facility] [address] [facility] [place] [address] Psychiatry 08/31/21 Leon Oneill MD [address] [facility] [address] [place] [address] HEMATOLOGY/ONCOLOGY 08/31/21 Rick Rivas MD [address] [place] [address] Referring Physician RHEUMATOLOGY 08/31/21 documented as of this encounter
--- OUTSIDE RECORDS SUMMARY | 2024-11-15 12:14 | XMS_ITS | Clinical Summary ---
Author Organization [facility] Address [address] [facility], [place] [address] Phone Care Team Providers Care Cover Stitch Machine Operator Name Role Phone Darnell Bryant MD Unavailable Milly Celaya APRN, SWITCH INSPECTOR Primary Care Provider Unavailable Allergies Active Allergy [...] Encounters Date Type Department Care Team Description 11/08/2024 9:30 AM CDT Telemedicine [facility] [address] [place] [address] Justyn Miranda LCSW Generalized anxiety disorder (Primary Dx); Panic disorder; Adjustment disorder with mixed anxiety and depressed mood Discharge Disposition: Discharged to home or Selfcare 11/08/2024 Travel 10/25/2024 11:30 AM CDT Telemedicine [facility] 1 [place] [address] Justyn Miranda LCSW Generalized anxiety disorder (Primary Dx); Panic disorder; Adjustment disorder with mixed anxiety and depressed mood Discharge Disposition: Discharged to home or Selfcare 10/25/2024 Travel 10/09/2024 9:30 AM AWNING ERECTOR Telemedicine [facility] 1 [place] [address] Justyn Miranda LCSW Generalized anxiety disorder (Primary Dx); Panic disorder; Adjustment disorder with mixed anxiety and depressed mood Discharge Disposition: Discharged to home or Selfcare 10/09/2024 Travel 09/19/2024 9:30 AM AWNING ERECTOR Telemedicine [facility] 1 [place] [address] Justyn Miranda LCSW Generalized anxiety disorder (Primary Dx); Panic disorder; Adjustment disorder with mixed anxiety and depressed mood Discharge Disposition: Discharged to home or Selfcare 09/19/2024 Behavioral Health Patient Survey [facility] 1 [place] [address] Justyn Miranda LCSW 09/19/2024 Travel 08/31/2024 9:15 AM AWNING ERECTOR [facility] 1 [place] [address] Justyn Miranda, COLLAR BASTER JUMPBASTING Generalized anxiety disorder (Primary Dx); Panic disorder Discharge Disposition: Discharged to home or Selfcare 08/31/2024 Travel 08/27/2024 Travel from Last 3 Months Family History [...] 74 05/17/2018 8:47 AM CDT Temperature 36.7 C (98.1 F) 05/17/2018 8:47 AM CDT Respiratory Rate 16 05/17/2018 8:4 7 AM CDT Oxygen Saturation 98% 05/17/2018 8:47 AM CDT Inhaled Oxygen Concentration - - Weight 68.9 kg (151 lb 12.8 oz) 05/17/2018 8:47 AM CDT Height 157.5 cm (5' 2 ) 05/17/2018 8:47 AM CDT Body Mass Index 27.76 05/17/2018 8:47 AM CDT Plan of Treatment Upcoming Encounters Date Type Department Care Team (Late st Contact Info) Description 11/22/2024 12:00 PM CDT [facility] 1 [place] [address] Justyn Miranda, CHRISTIANO [address] [place] [address] Discharge Disposition: Discharged to home or Selfcare Health Maintenance Due Date Last Done Comments DEXA Bone Density 1950 Hepatitis C Virus (HCV) Screening 1950 Zoster Immunization (1 of 2) 1998 Respiratory Syncytial Virus (RSV) Immunization (Adult) (1 - 1-dose 75+ series) 2023 SARS-COV-2 Immunization (3 - 2023- season) 2024 01/26/2022, 07/08/2021 Pneumococcal Immunization (50+ [...] skills/setting healthy boundaries/expectations with family members Insurance MEDICARE C [employer] MEDICARE Care Teams Cover Stitch Machine Operator Relationship Specialty Start Date End Date Milly Celaya, TALENT ACQUISITION DIRECTOR, [place] [address] PCP - General Obstetrics & Gynecology 05/23/18 [place] [address] Psychiatry 03/16/18
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
--- OUTSIDE RECORDS SUMMARY | 2024-11-15 12:14 | XMS_ITS | Encounter Summary ---
Author Organization [facility] Address [address] [facility] [place] [address] Phone Care Team Providers Care Log Truck Driver Name Role Phone Wilian Sultana MD Unavailable Darnell Bryant MD Unavailable Milly Celaya APRN, SKIDDER DRIVER Primary Care Provider Unavailable Encounter Details Date Type Department Care Team (Late st Contact Info) Description 06/22/2024 Behavioral Health [facility] 1 [place] [address] Justyn Miranda, STREET WORKER [address] [place] [address] Social History Tobacco Use Types Packs/Day Years [...] Info) Description 11/22/2024 12:00 PM CDT [facility] 1 [place] [address] Justyn Miranda LCSW [address] [place] [address] Discharge Disposition: Discharged to home or Selfcare [...] Department associated with goal: [facility] Steps to achieve goal: [...] Department associated with goal: [facility] Steps to achieve goal: [...] documented as of this encounter Care Teams Log Truck Driver Relationship Specialty Start Date End Date Milly Celaya, PAYROLL REPRESENTATIVE, SKIDDER DRIVER [facility] [place] [address] PCP - General Obstetrics & Gynecology 05/23/18 Wilian Sultana MD Consulting Physician Neurology 08/11/16 06/24/24 Darnell Bryant MD [address] [place] [address] Psychiatry 03/16/18 documented as of this encounter
--- OUTSIDE RECORDS SUMMARY | 2024-11-15 12:15 | XMS_ITS | Clinical Summary ---
Author Organization [facility] Address [address] [facility] [place] [address] Care Team Providers Care Water Tender Name Role Phone Renetta Sarabia MD Primary [...] tongue Continuous as needed. 09/29/19 19 Active [place]-3 Fatty Acids 1,000 mg Capsule Take 1 [...] by mouth. Active naloxone (NARCAN) 4 mg/spray [place], Non-Aerosol EMERGENCY USE ONLY: Administer 1 spray [...] Encounters Date Type Department Care Team Description 10/24/2024 External Device Data [facility] ABSTRACTION Provider, Abstract 10/13/2024 External Device Data [facility] ABSTRACTION Provider, Abstract 10/12/2024 External Device Data [facility] ABSTRACTION Provider, Abstract 10/10/2024 External Device Data [facility] ABSTRACTION Provider, Abstract 09/26/2024 External Device Data [facility] ABSTRACTION Provider, Abstract 09/04/2024 External Device Data [facility] ABSTRACTION Provider, [...] Comments Blood Pressure 121/77 07/19/2024 3:24 PM ART TRACER Pulse 75 07/19/2024 3:24 PM ART TRACER Temperature 36.1 C (97 F) 07/19/2024 3:24 PM ART TRACER Respiratory Rate 16 07/19/2024 3:24 PM ART TRACER Oxygen Saturation 96% 07/19/2024 3:24 PM ART TRACER Inhaled Oxygen Concentration - - Weight 70.8 kg (156 lb) 07/19/2024 3:24 PM ART TRACER Height 167.6 cm (5' 6 ) 07/08/2021 9:25 AM ART TRACER Body Mass Index 25.18 07/08/2021 9:25 AM ART TRACER Plan of Treatment Upcoming Encounters Date Type Department Care Team (Late st Contact Info) Description 07/22/2025 1:00 PM ART TRACER Office Visit [facility] Oncology and Hematology - [address] [place] [address] Leon Oneill MD [address] [facility] [address] [place] [address] Health Maintenance Due Date Last Done Comments DTAP/TDAP/TD VACCINES (1 - Tdap) 1969 ZOSTER VACCINE (1 of 2) 1969 PNEUMOCOCCAL VACCINE 50+ YEA RS (2 of 2 - PPSV23) 11/03/2020 09/08/2020, 07/17/2020 RSV VACCINE (60+ or ) (1 - 1-dose 75+ series) 2023 INFLUENZA VACCINE (#1) 2024 05/22/2020 Preventative Visit- Commercial 08/08/2024 OSTEOPOROSIS SCREENING Completed 11/18/[address] [place] [address] [employer] P[employer] [facility] [employer] PPO Care Teams Water Tender Relationship Specialty Start Date End Date Renetta Sarabia MD PCP - General Family Practice 12/21/19
--- OUTSIDE RECORDS SUMMARY | 2024-11-15 12:15 | XMS_ITS | Data Portability ---
Author Organization [place] [employer], Main Office Address [address] [place] [address] Care Team Providers Care Process Server Name Role Phone NOLBERTO MAYA Primary Care Provider NOLBERTO MAYA Referring Provider [phone] Assessment Encounter Date Assessment Date Assessment LastModified by Organization Details LastModified Time 01/05/2024 01/05/2024 The patient has right wrist pain after an injury as described above. It appears she has had a sprain and contusion type injury to the hand wrist and distal forearm when her arm was suddenly placed under heavy traction with her arm caught in a door handle as the strong wind jerked her arm and put her hand and wrist into a hyperflexion type position. we are limited in what we can do in terms of anti-inflammator y medication she states she can take oral prednisone we will get her a Medrol taper Dosepak she wants to take a low dose she states higher doses of prednisone have caused some palpitations previously. Certainly we will get her started with some physical therapy to work on gentle hand wrist and forearm motion we will have her see the hand therapist to get started on a home program as well. We will also fit her with a cock-up wrist brace this was done in the office by the staff today it was molded to her best comfort and support. She will take it off several times a day to work on gentle range of motion. I will see her back in 3 weeks for her next recheck to make sure she is making good progress I have advised her it may take some time for the inflammation to calm down. As she feels more comfortable we can get a better idea of her range of motion and strength. The patient and her daughter voiced understanding and agree with the above plan they will call for any further problems difficulties or questions. We did talk about heating up the hand and wrist before exercise to help with loosening the tissues than icing down afterwards. [email or web address] Not available 01/05/2024 17:06:44 Plan of Treatment Reminders Order Date Submit Date Provider Last Modified By Organization Details Last Modified Time Details Appointments None recorded. Lab None recorded. Referral None recorded. Procedures None recorded. Surgeries None recorded. Imaging None recorded. Medication Orders Medrol (Marino) 4 mg tablets in a dose pack 024 024 [email or web address] [facility] [id number] [facility], [address] [place] [address], [address], 16:24:30 Patient TargetsNo targets recorded. Patient InstructionsNo instructions recorded. Reason for Referral None Reported. Results Created Date Observation Date Name Description Value Unit Range Abnormal Flag Note LastModifiedBy Organization Detail LastModifiedTime 02/10/20 21 02/09/2021 COVID -19 (SARS COV-2 ) RNA, ARSH covid-19 RNA negati ve This test has been autho rized by the FDA under an Emerg ency Use Autho rizat ion (EUA) for use by autho rized labor atori es. Negat sarina resul ts shoul d be treat ed as presu mptiv e and, if incon siste nt with clini kareen signs and sympt oms neces haja for patie nt manag ement , shoul d be teste d with diffe rent autho rized or clear ed molec ular tests . Negat sarina resul ts do not precl ude SARS- Co-V- 2 infec tion and shoul d not be used as the sole basis for patie nt manag ement decis ions. Negat sairna resul ts shoul d be consi dered in the scarlett xt of a patie nt's recen t expos ures, histo ry and the prese nce of clini kareen signs and sympt oms consi stent with COVID -19. Plesaige e bess w the Fact Sheet s for healt h care provi ders and patie nts at the [facility] te: https ://gl oalpo intof care. abbot t/en/ produ ct-de tails /id-n ow-co vid-1 9.htm l Metho dolog y: Isoth ermal Nucle ic Acid Ampli ficat ion Not Available [facility] (Lab) [address] [place], [address], 02/09/2021 14:48:57 02/04/20 21 01/28/2021 XR, knee, 3 view No observ ation record ed. [id number] Not Available 10/06/2022 06:05:32 02/05/20 21 XR, knee No observ ation record ed. [id number] [id number] [place] [address], [place], [address], 10/06/2022 06:05:32 02/06/20 21 MRI, knee, w/o contr ast [facility] [address] [place] [address] Patien t Name: STEPHANE BANKS Access ion #: [id number] Sex: F : 1950 7 Locati on: RA2 Attend ing Physic maximus: MICHEL LOVE Orderi ng Physic maximus: MICHEL LOVE Exam Date: 02/06/20 8:41 AM Exam Name: MRI KNEE LT WO Admitt ing Diagno sis(es ): RADIOL OGY REPORT - FINAL EXAM: MRI KNEE LT WO HISTOR Y: trauma , pain COMPAR MIGUEL: Radiog raphs of the left knee dated 2020 TECHNI QUE: Multip lanar multis equenc e noncon trast MR images of the left knee were perfor med. FINDIN GS: There is modera te patell ofemor al and medial joint space narrow ing. Modera te chondr omalac ia patell a and small joint effusi on and small Vang' s cyst format ion are noted. No fractu re, sublux ation or abnorm al marrow proces s is noted the ACL, PCL, MCL, LCL and extens or mechan isms are grossl y intact . Iris r the PCL is somewh at thicke emiliana and irregu lar which may repres ent a Page 1 of 2 [facility] Patien t Name: STEPHANE BANKS Access ion #: [id number] Sex: F : 1950 7 Exam Date: 02/06/20 8:41 AM Exam Name: MRI KNEE LT WO Admitt ing Diagno sis(es ): partia l tear. The cellophane bath mixer ior horn of the medial menisc us demons trates a comple x tear. The cellophane bath mixer ior horn of the medial menisc us is extrud ed in a medial direct ion. The latera l menisc us is intact . The cellophane bath mixer olater al corner struct ures are normal appear ing. The extens or mechan ism is intact . The overly ing muscul ature demons trates normal signal and morpho logy. IMPRES KAREN: [employer] ior horn medial menisc al tear. Modera te chondr omalac ia patell a. Small joint effusi on. Possib le partia l tear of the PCL. Create d and electr onical ly signed by: Narinder Tuttle ch, DO Signed Date: 02/06/20 9:53 AM (CT) Dictat ed by: Narinder Tuttle ch, DO (CT) (CT) Page 2 of 2 [id number] [facility] (Imaging) [address] [place], [address], 10/06/2022 06:05:32 12/29/19 24 XR, wrist No observ ation record ed. Not Available 2023 17:11:55 Result Notes None recorded. 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 Toth (cardiolo gy) Not Available [facility] 3 05:58:35 Scoliosis deformity of spine 188165475 Active 1997 Not Available [facility] 3 05:58:35 Diverticu litis 758045061 Active 2019 Not Available [facility] 3 05:58:35 Panic disorder 577686748 Active 1979 Not Available [facility] 3 05:58:35 Arthritis 7333940 Active 2015 Worse back Not Available [facility] 3 05:58:36 Psoriasis 9051558 Active 1999 Not Available [facility] 3 05:58:36 Kidney disease 86343243 Active 1999 stage 2- 42%. Dr. Augustin Zuluaga (nephrolo gy) Not Available [facility] 3 05:58:36 Pain of right wrist 36249131220 9100 Active 2023 Nalini Hunter [facility], [place] [employer] [facility] 4 15:47:43 Contusion of right wrist 55863524251 161727 Active 2023 OUMOU Ramon [address] [facility], [place] [address], [place], [address] , [employer] [facility] 4 17:07:11 Sprain of right wrist 40790240248 643342 Active 2023 OUMOU Ramon [address] [facility], [place] [address], [place], [address] , [employer] [facility] 4 17:07:20 Problem Notes None recorded. Procedures Surgical History Date Name Laterality Status Provider Name and Address Organization Details Recorded Time 02/11/20 21 Knee arthroscopy/surg dayday completed Not Available [facility] 10/06/2022 05:53:40 Hysterectomy completed Not Available [facility] 10/06/2022 05:53:40 Foot Surgery completed Not Available [facility] 10/06/2022 05:53:40 Colonoscopy completed [facility] 01/05/2024 15:45:11 Endoscopy completed [facility] 01/05/2024 15:45:30 Cataract Surgery completed [facility] 01/05/2024 15:45:52 Eye Surgery completed [facility] 01/05/2024 15:46:18 Imaging Results Imaging Date Name Status LastModified by Organiz ation Details LastModified Time 02/04/2021 XR, knee completed [id number] [facility] [address], [place], [address], 10/06/2022 06:05:32 01/28/2021 XR, knee, 3 view completed [id number] Information not available 10/06/2022 06:05:32 02/05/2021 MRI, knee, w/o contrast completed [id number] [facility] (Imaging) [address] [place], [address], 10/06/2022 06:05:32 12/29/2023 XR, wrist completed [email or web address] Information no t available 12/29/2023 17:11:55 Procedure Notes None recorded. Medical Equipment None Reported. Allergies Allergen ID Allergen Name Allergen Category Reaction Reaction Severity Criticality Documentation Date Start Date Code Code System Note Provider Name and Address Organization Details Recorded Time 05979 Substance with sulfonami de structure and antibacte rial mechanism of action (substanc e) medicatio n anaphylax is severe Not available 10/06/2022 89810 8003 SNOMED Not Available [facility] 3 06:05:19 81751 prednisol one medicatio n palpitati ons severe Not available 10/06/2022 8638 RxNorm Not Available [facility] 3 06:05:20 93549 Product containin g penicilli n (product) medicatio n rash severe Not available 10/06/2022 22483 8001 SNOMED Not Available [facility] 3 06:05:20 82459 Levaquin medicatio n anaphylax is severe Not available 10/06/2022 75592 2 RxNorm Not Available [facility] 3 06:05:20 01364 Dilaudid medicatio n anaphylax is severe Not available 10/06/2022 01496 3 RxNorm Not Available [facility] 3 06:05:20 92530 Bactrim medicatio n anaphylax is severe Not available 10/06/2022 21761 9 RxNorm Not Available [facility] 3 06:05:20 29804 cortisone medicatio n Not available Not available Not available 01/05/2024 2878 RxNorm injec NILSON Akins [place] [employer] 4 15:39:42 Medications Name Sig Start Date Stop Date Status Note LastModified by Organization Details LastModified Time amoxicill in 500 mg capsule TAKE 1 CAPSULE BY MOUTH EVERY 8 HOURS 01/04 completed Not Available Not Available Not Available doxycycli ne hyclate 100 mg capsule 01/04 completed Not Available Not Available Not Available cetirizin e 10 mg tablet TAKE 1 TABLET BY MOUTH ONCE DAILY 01/04 completed Not Available Not Available Not Available azithromy mis 250 mg tablet TAKE 2 TABLETS BY MOUTH ON DAY 1, AND THEN TAKE 1 TABLET BY MOUTH ONCE A DAY ON DAY 2 THROUGH DAY 5 01/04 completed Not Available Not Available Not Available aspirin 325 mg tablet Take 1 tablet every day by oral route. 08/21 completed Not Available Not Available Not Available benzonata te 200 mg capsule TAKE 1 CAPSULE BY MOUTH THREE TIMES DAILY NEEDED FOR COUGH 02/04 completed Not Available Not Available Not Available valacyclo vir 1 gram tablet TAKE 1 TABLET BY MOUTH EVERY 8 HOURS FOR 7 DAYS FOR HERPES FLARE UP 01/04 completed Not Available Not Available Not Available prochlorp erazine maleate 5 mg tablet active Not Available Not Available No t Available metronida zole 0.75 % (37.5 mg/5 gram) vaginal gel INSERT 1 APPLICAT ORFUL VAGINALL Y ONCE NIGHTLY AT BEDTIME FOR 5 DAYS. 01/29 completed Not Available Not Available Not Available prednison e 5 mg tablet TAKE 3 TABLETS BY MOUTH IN THE MORNING FOR 1 WEEK,THE N TAKE 2 TABLETS EVERY MORNING FOR 1 WEEK,THE N TAKE 1 TABLET EVERY MORNING FOR 1 WEEK THEN DISCONTI NUE. 01/04 completed Not Available Not Available Not Available sumatript an 50 mg tablet TAKE 1 TABLET BY MOUTH AT ONSET OF HEADACHE : IF NO RELIEF MAY REPEAT 1 TABLET AFTER AT LEAST 2 HOURS.(M AX 4 TABLETS IN 24 HOUR PERIOD) active Not Available Not Available No t Available metronida zole 500 mg tablet TAKE 1 TABLET BY MOUTH EVERY 8 HOURS FOR 7 DAYS 02/04 completed Not Available Not Available Not Available acyclovir 400 mg tablet active Not Available Not Available Not Available ciproflox acin 500 mg tablet TAKE 1 TABLET BY MOUTH EVERY 12 HOURS 01/04 completed Not Available Not Available Not Available hydrocodo ne 10 mg-acetam inophen 325 mg tablet TAKE 1 TABLET BY MOUTH FOUR TIMES A DAY NEEDED FOR PAIN active Not Available Not Available No t Available alprazola m 0.5 mg tablet TAKE 1 TABLET BY MOUTH 4 TIMES PER DAY active Not Available Not Available No t Available famotidin e 20 mg tablet active Not Available Not Available Not Available prednisol one acetate 1 % eye drops,juan f pension INSTILL 1 DROP THREE TIMES DAILY STARTING AFTER SURGERY, CONTINUE FOR 3 WEEKS 01/04 completed Not Available Not Available Not Available methotrex ate sodium 2.5 mg tablet TAKE 5 TABS BY MOUTH ONCE WEEKLY 01/04 completed Not Available Not Available Not Available ciproflox acin 0.3 % eye drops INSTILL 1 DROP THREE TIMES DAILY INTO SURGICAL EYE BEGINING 2 DAYS PRIOR TO SURGERY, CONTINUE FOR 1 WEEK AFTER active Not Available Not Available No t Available benzonata te 100 mg capsule TAKE 1 CAPSULE BY MOUTH THREE TIMES DAILY NEEDED FOR COUGH active Not Available Not Available No t Available diclofena c 0.1 % eye drops INSTILL 1 DROP THREE TIMES DAILY INTO SURGICAL EYE BEGINNIN G 2 DAYS PRIOR TO SURGERY, CONTINUI NG FOR 2 WEEKS AFTER 01/04 completed Not Available Not Available Not Available clotrimaz ole-betam ethasone 1 %-0.05 % topical cream APPLY TOPICALL Y TWICE A DAY 01/04 completed Not Available Not Available Not Available lisinopri l 10 mg tablet TAKE ONE HALF TABLET DAILY FOR ONE WEEK THEN TAKE ONE TABLET DAILY THEREAFT ER active Not Available Not Available No t Available losartan 25 mg tablet TAKE 1 TABLET BY MOUTH ONCE DAILY active Not Available Not Available No t Available nitroglyc emmie 0.4 mg sublingua l tablet DISSOLVE ONE TABLET UNDER THE TONGUE EVERY 5 MINUTES NEEDED FOR CHEST PAIN. DO NOT EXCEED A TOTAL OF 3 DOSES IN 15 MINUTES NOW active Not Available Not Available No t Available folic acid 1 mg tablet TAKE 5 TABS BY MOUTH EVERY MORNING active Not Available Not Available No t Available metoprolo l succinate ER 25 mg tablet,ex tended release 24 hr TAKE 1 TABLET BY MOUTH TWICE DAILY active Not Available Not Available No t Available methylpre dnisolone 4 mg tablets in a dose pack TAKE 6 TABLETS ON DAY 1 DIRECTED ON PACKAGE AND DECREASE BY 1 TAB EACH DAY FOR A TOTAL OF 6 DAYS active Not Available Not Available No t Available albuterol sulfate HFA 90 mcg/actua tion aerosol inhaler INHALE 1 PUFF BY MOUTH EVERY 4 HOURS NEEDED FOR SHORTNES S OF BREATH FOR WHEEZING active Not Available Not Available No t Available ondansetr on 4 mg disintegr ating tablet DISSOLVE 1 TABLET IN MOUTH EVERY 8 HOURS NEEDED FOR NAUSEA AND VOMITING active Not Available Not Available No t Available fluticaso ne propionat e 50 mcg/actua tion nasal spray,juan f pension USE 2 SPRAY(S) IN EACH NOSTRIL ONCE DAILY active Not Available Not Available No t Available amoxicill in 875 mg-potass ium clavulana te 125 mg tablet TAKE 1 TABLET BY MOUTH TWICE DAILY 01/04 completed Not Available Not Available Not Available oxycodone 5 mg tablet TAKE 1 TABLET BY MOUTH EVERY 4 HOURS 02/19 completed Not Available Not Available Not Available cyclobenz aprine 5 mg tablet TAKE 1 TABLET BY MOUTH THREE TIMES A DAY NEEDED FOR MUSCLE SPASM active Not Available Not Available No t Available ciproflox acin 0.3 %-dexamet hasone 0.1 % ear drops,juan f pension INSTILL 4 DROPS INTO RIGHT EAR EVERY 12 HOURS active Not Available Not Available No t Available hydrocodo ne 10 mg-acetam inophen 300 mg tablet Take 1 tablet every 6 hours by oral route. 01/29 completed pt takes this medicati on for her arthriti c pain Not Available Not Available Not Available aspirin 01/29 completed duplicat e Not Available Not Available Not Available nitroglyc emmie 2019 active Not Available Not Available Not Avai lableah alpzola m 09/02 completed Duplicat e Not Available Not Available Not Available valacyclo vir 08/21 completed Gential herpes for many years. Takes as needed Not Available Not Available Not Available sodium,po tassium,m ag sulfates 17.5 gram-3.13 gram-1.6 gram oral soln TAKE DIRECTED PER DR HERRMANN S WRITTEN INSTRUCT IONS 01/04 completed Not Available Not Available Not Available lidocaine 5 % topical ointment APPLY TOPICALL Y UP TO 6 TIMES DAILY NEEDED FOR PAIN RELIEF 01/04 completed Not Available Not Available Not Available Eliquis 2.5 mg tablet Take 1 tablet twice a day by oral route for 14 days. 01/04 completed Not Available Not Available Not Available Farxiga 5 mg tablet TAKE 1 TABLET BY MOUTH IN THE MORNING active Not Available Not Available No t Available Fluad Quad 7783-1198 (65yr up)(PF) 60 mcg (15 mcg x 4)/0.5mL IM syringe ADMINIST ER 0.7ML IN THE MUSCLE DIRECTED 08/21 completed Not Available Not Available Not Available Vitals Date Recorded Body height Provider Name an d Address Organization Details Last Updated DateTime 02/04/2021 157.48 cm Not Available [facility] 3 05:55:19 Date Recorded Body height Provider Name an d Address Organization Details Last Updated DateTime 02/05/2021 157.48 cm Not Available [facility] 3 05:55:20 Date Recorded Body height Provider Name an d Address Organization Details Last Updated DateTime 02/19/2021 157.48 cm Not Available [facility] 3 05:55:20 Date Recorded Body height Provider Name an d Address Organization Details Last Updated DateTime 03/12/2021 157.48 cm Not Available [facility] 3 05:55:20 Date Recorded Body height Body mass index (BMI) Body weight Provider Name and Address Organization Details Last Updated DateTime 01/05/2024 157.48 cm 27.4 kg/m2 54111.86 g Nalini Harrison [place] [facility] 01/05/2024 15:37:50 Social History Question Answer Notes LastModified by Organizat ion Details LastModified Time Tobacco Smoking Status Never Smoker Not Available [facility] 10/06/2022 05:53:25 What Was The Date Of Your Most Recent Tobacco Screening? 10/15/2020 [id number] Information not available 10/06/2022 Sex: Unknown Functional Status None recorded. Mental Status None recorded. Family History Relationship Description Onset Age of this Age Resolved Age Notes LastModified by Organization Details LastModified Time Mother Complication of anesthesia [id number] Not available 10/06/2022 05:53:42 Mother Family history of malignant neoplasm [id number] Not available 10/06/2022 05:53:42 Father Family history of malignant neoplasm [id number] Not available 10/06/2022 05:53:42 Mother Heart disease [email or web address] Not available 2023 15:43:54 Mother Hypertensive disorder [email or web address] Not available 2023 15:44:28 Medical History Condition Response CARDIAC ARRHYTHMIA Y ARTHRITIS Y ULCERS Y Blood Disorder Y ANEMIA/BLOOD DISORDER Y SKIN PROBLEMS Y KIDNEY DISEASE Y HEART DISEASE/HEART PROBLEMS Y HEART ARRHYTHMIA Y HYPERTENSION Y Gynecological HistoryNo gynecological history recorded. Obstetrics History GPAL:G 0 P 0 0 0 0 Past Encounters Encounter ID Performer Location Encounter Start Date Encounter Closed Date Diagnosis/Indication Diagnosis SNOMED-CT Code Diagnosis ICD10 Code Diagnosis Note [id number] [facility] [place] [address] [place] [address] 10/15/2020 00:00:00 11/02/2020 12:48:48 [id number] [facility] [place] [address] [place] [address] 02/04/2021 00:00:00 02/05/2021 16:43:41 [id number] [facility] [address] [address] 02/05/2021 00:00:00 02/05/2021 16:45:14 [id number] [facility] [address] [place] [address] 02/19/2021 00:00:00 02/19/2021 15:11:41 [id number] [facility] [place] [address] [place] [address] 03/12/2021 00:00:00 03/12/2021 12:31:34 [id number] OUMOU Ramon [facility] [place] [address] [facility] [address] [place] [address] 01/05/2024 14:17:53 01/05/2024 16:30:12 Pain of right wrist 9474487393 12015 M25.531 Sprain of right wrist 11 02502003 2337822 S63.501A Contusion of right wrist 0023772213 4300634 S60.211A Health Concerns Section Related Observation LastModified by Organization Detai ls LastModified Time None Recorded Concern Status LastModified by Organization Details LastModified Time None Recorded Advance Directives Directive None Recorded Payers Encounter Date Sequence Insurance Name Policy Number Policy Omer Covered Member ID Omer Member ID Guarantor Name 01/05/2024 2 [employer] (PPO) [id number] Kemi Banks [id number] Kemi Banks 01/05/2024 1 [facility] [employer] MANAGER [facility] (PPO) Kemi Banks [id number] Kemi Banks Notes Date Note Type Note Provider Name and Address Organization Details Recorded Time 01/05/2024 text/html The patient is a 73-year-old female who suffered an injury to her right wrist 9 days ago. She was at a store it was very windy. There were to swinging doors that pushed in and out. As she was trying to passed through the doors she had her hand in the handle of the door to push it forward the wind caught the door and caused a sudden traction and awkward hyperflexion of her right wrist. The wound was so strong that she had to have assistance with getting her hand untangled from the handle on the door this took several seconds for somebody to assist her with fraying her hand and wrist from the door handle. During that time she was having severe pain throughout the hand and wrist. She was taken to the emergency room that day to [facility] had x-rays performed. I have reviewed the x-rays in detail today with the patient and I agree with the above findings with the radiologist stating that the patient had no acute fracture lesion mass or dislocation normal anatomic alignment is noted. The patient has no significant osteoarthritis in the wrists x-rays were read as unremarkable. The patient did develop some bruising and swelling she states the pain is at least a 10 on a scale 1-10 has very limited use of her hand and wrist at this time because of the discomfort. When prompted she is able to make a fist fully extend her fingers and has some limited motion of her wrist as well. Most of the pain is localized to the wrist. She does have some pain in the forearm hand and fingers as well. She does have moderate somewhat extensive bruising through the distal forearm on the volar surface and is quite tender here as well. She has no obvious deformity of the hand wrist or fingers she has some mild swelling nothing severe. The skin is intact she does not have any lacerations or abrasions states she has normal sensation except for the very tips of 2nd through 4th fingers which feel little numb but otherwise unremarkable. It has been 9 days now she continues to have significant pain she was splinted in the emergency room has not tried to do any range of motion comes in today for initial evaluation treatment after her injury as described. 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 She has had to stop taking some of her medications due to her kidney function issues. A new past medical history sheet was reviewed and signed on the intake sheet of today's date drug allergies current medications family social history previous surgical history 10 point review of systems was reviewed and discussed in detail today with the patient. OUMOU Ramon [address] [facility], [facility] [address], [place], [address], [facility] - S [employer] 01/05/2024 17:08:00 OBGyn Episode No OBEpisode recorded.
--- OUTSIDE RECORDS SUMMARY | 2024-11-15 12:15 | XMS_ITS | Encounter Summary ---
Author Organization [facility] Address [address] [facility] [place] [address] Phone Care Team Providers Care Materials Associate Name Role Phone Wilian Sultana MD Unavailable [phone] Darnell Bryant MD Unavailable Milly Celaya APRN, OLIVE GRADER Primary Care Provider Unavailable Encounter Details Date Type Department Care Team (Late st Contact Info) Description 05/25/2023 Behavioral Health Patient Survey [facility] Health Services 1 [place] [address] Justyn Miranda, [facility] [address] [place] [address] Social History Tobacco Use Types Packs/Day Years [...] Info) Description 11/22/2024 12:00 PM CDT Telemedicine [facility] Behavioral Health Services [address] [place] [address] Justyn Miranda LCSW [address] [place] [address] Discharge Disposition: Discharged to home or Selfcare [...] Ready to change Department associated with goal: [facility] BEHAVIORAL HEALTH SERVICES Steps to achieve [...] Ready to change Department associated with goal: [facility] BEHAVIORAL HE[facility] SERVICES Steps to achieve [...] documented as of this encounter Care Teams Materials Associate Relationship Specialty Start Date End Date Milly Celaya, EQUIPMENT MAINTENANCE SUPERINTENDENT, OLIVE GRADER [address] [place] [address] PCP - General Obstetrics & Gynecology 05/23/18 Wilian Sultana MD Consulting Physician Neurology 08/11/16 06/24/24 Darnell Bryant MD [address] [place] [address] Psychiatry 03/16/18 documented as of this encounter
--- OUTSIDE RECORDS SUMMARY | 2024-11-15 12:15 | XMS_ITS | Encounter Summary ---
Author Organization [facility] Address [address] [place] [address] Phone Care Team Providers Care Assistant Professor Of Economics Name Role Phone Wilian Sultana MD Unavailable [phone] Darnell Bryant MD Unavailable Milly Celaya APRN, BAG LOADER Primary Care Provider Unavailable Encounter Details Date Type Department Care Team (Late st Contact Info) Description 02/02/2023 Behavioral Health [facility] Survey [facility] Behavioral Health Services 1 [place] [address] Justyn Miranda, [facility] [address] [place] [address] Social History Tobacco Use Types Packs/Day Years [...] Info) Description 11/22/2024 12:00 PM CDT Telemedicine [facility] Behavioral Health Services [address] [place] [address] Justyn Miranda LCSW [address] [place] [address] Discharge Disposition: Discharged to home or Selfcare [...] documented as of this encounter Care Teams Assistant Professor Of Economics Relationship Specialty Start Date End Date Milly Celaya, ASSEMBLY LINE INSPECTOR, BAG LOADER [address] [place] [address] PCP - General Obstetrics & Gynecology 05/23/18 Wilian Sultana MD Consulting Physician Neurology 08/11/16 06/24/24 Darnell Bryant MD [address] [place] [address] Psychiatry 03/16/18 documented as of this encounter
--- OUTSIDE RECORDS SUMMARY | 2024-11-15 12:15 | XMS_ITS | Encounter Summary ---
Author Organization [facility] Address [address] [facility] [place] [address] Phone Care Team Providers Care Travel Agency Manager Name Role Phone Wilian Sultana MD Unavailable Darnell Bryant MD Unavailable Milly Celaya APRN, ELECTRICAL INSPECTOR Primary Care Provider Unavailable Encounter Details Date Type Department Care Team (Late st Contact Info) Description 03/11/2023 Behavioral Health [facility] Survey [facility] Behavioral Health Services 1 [place] [address] Justyn Miranda, [facility] [address] [place] [address] Social History Tobacco Use Types Packs/Day Years [...] Info) Description 11/22/2024 12:00 PM CDT Telemedicine [facility] Behavioral Health Services [address] [place] [address] Justyn Miranda LCSW [address] [place] [address] Discharge Disposition: Discharged to home or Selfcare [...] to change Department associated with goal: [facility] BEHAVIORAL HEALTH SERVICES Steps to achieve [...] to change Department associated with goal: [facility] Steps to achieve [...] as of this encounter Care Teams Travel Agency Manager Relationship Specialty Start Date End Date Milly Celaya, TOP FORMER, ELECTRICAL INSPECTOR [address] [place] [address] PCP - General Obstetrics & Gynecology 05/23/18 Wilian Sultana MD Consulting Physician Neurology 08/11/16 06/24/24 Darnell Bryant MD [address] [place] [address] Psychiatry 03/16/18 documented as of this encounter
--- OUTSIDE RECORDS SUMMARY | 2024-11-15 12:15 | XMS_ITS | Encounter Summary ---
Author Organization [facility] Address [address] [place] [place] [address] Phone Care Team Providers Care Bulk Clerk Name Role Phone Wilian Sultana MD Unavailable Darnell Bryant MD Unavailable Milly Celaya APRN, SODA COLUMN OPERATOR Primary Care Provider Unavailable Encounter Details Date Type Department Care Team (Late st Contact Info) Description 08/31/2023 [facility] 1 [place] [address] Justyn Miranda, BEEHIVE KILN CHARCOAL BURNER [address] [place] [address] Social History Tobacco Use Types Packs/Day Years [...] 11/22/2024 12:00 PM CDT [facility] 1 [place] [address] Justyn Miranda LCSW [address] [place] [address] Discharge Disposition: Discharged to home or Selfcare [...] Ready to change Department associated with goal: [facility] BEHAVIORAL HEALTH SERVICES Steps to [...] Ready to change Department associated with goal: [facility] BEHAVIORAL HEALTH SERVICES Steps to [...] documented as of this encounter Care Teams Bulk Clerk Relationship Specialty Start Date End Date Milly Celaya, GROUND SERVICES INSTRUCTOR, SODA COLUMN OPERATOR [place] [address] PCP - General Obstetrics & Gynecology 05/23/18 Wilian Sultana MD Consulting Physician Neurology 08/11/16 06/24/24 Darnell Bryant MD [address] [place] [address] Psychiatry 03/16/18 documented as of this encounter
--- OUTSIDE RECORDS SUMMARY | 2024-11-15 12:15 | XMS_ITS | Encounter Summary ---
Author Organization [facility] Address [address] [facility] [place] [address] Phone Care Team Providers Care Operations Program Manager Name Role Phone Darnell Bryant MD Unavailable Milly Celaya APRN, ANTHROPOLOGICAL LINGUIST Primary Care Provider Unavailable Encounter Details Date Type Department Care Team (Late st Contact Info) Description 09/19/2024 [facility] 1 [place] [address] Justyn Miranda, TRANSMISSION OPERATOR [address] [place] [address] Social History Tobacco Use Types Packs/Day Years [...] Info) Description 11/22/2024 12:00 PM CDT [facility] 1 [place] [address] Justyn Miranda, TRANSMISSION OPERATOR [address] [place] [address] Discharge Disposition: Discharged to home or Selfcare [...] change Department associated with goal: [facility] BEHAVIORAL HEALTH SERVICES Steps to [...] change Department associated with goal: [facility] BEHAVIORAL HEALTH SERVICES Steps to [...] documented as of this encounter Care Teams Operations Program Manager Relationship Specialty Start Date End Date Milly Celaya, HONEY PROCESSOR, ANTHROPOLOGICAL LINGUIST [address] [address] PCP - General Obstetrics & Gynecology 05/23/18 Darnell Bryant MD [address] [address] Psychiatry 03/16/18 documented as of this encounter
[2024-11-15 12:18] LABS: Parathyroid Intact 32.3 pg/mL (14.5-75.2)
== END 2024-11-15 11:24 | disposition home or self-care (01) ==
PROVIDERS: PCP Family Medicine; Visit Provider Internal Medicine Nephrology
DX: N18.32 Chronic kidney disease, stage 3b (principal)
CPT/HCPCS: 36415; 80069; 82570; 83970; 84156; 85027

== ENCOUNTER 2024-12-04 10:51 | Outpatient (CLI) | payer OTHER, MEDICARE, SELFPAY ==
--- NOTE | ~2024-12-04 | MMUS_ITS ---
EXAMINATION: MM diagnostic giovanni BI w ashley, US breast LT limited HISTORY: Probably benign left breast lesions TECHNIQUE: 3-D tomosynthesis images of the breasts were performed and synthetic 2-D images were gener ated. CAD analysis was submitted and interpreted. High resolution limited left breast ultrasound was performed. COMPARISON: 11/15/2023, 10/10/2023, 08/31/2022, 05/12/2021 BREAST PARENCHYMAL COMPOSITION:Not Dense. The breasts are almost entirely fatty FINDINGS: MAMMOGRAPHIC FINDINGS: Parenchymal pattern of both breasts is essentially unchanged. No suspicious mass lesion or distortion . No suspicious microcalcification. ULTRASOUND: At the 11:00 position left breast, 1 cm from the nipple, there is a 3 mm hypoechoic mass versus cyst, unchanged. At the 12:00 position left breast, 1 cm from the nipple, there is an additional 2 mm hypo echoic structure, unchanged. IMPRESSION: No evidence for malignancy. Stable tiny lesions seen sonographically, compatible benign findings giv en stability over one year. BI-RADS Category 2: Benign finding(s). Reviewed, dictated and finalized at location . IMPRESSION: No evidence for malignancy. Stable tiny lesions seen sonographically, compatib le benign findings given stability over one year. BI-RADS Category 2: Benign finding(s).
--- OUTSIDE RECORDS SUMMARY | 2024-12-04 12:13 | XMS_ITS | Encounter Summary ---
Author Organization [facility] Address [address] [facility] [place] [address] Phone Care Team Providers Care Piercer Name Role Phone Darnell Bryant MD Unavailable Milly Celaya APRN, RADIOPHARMACIST Primary Care Provider Unavailable Encounter Details Date Type Department Care Team (Late st Contact Info) Description 08/06/2024 [facility] 1 [place] [address] Justyn Miranda, ASSOCIATE FINANCIAL PLANNER [address] [place] [address] Social History Tobacco Use Types Packs/Day Years [...] Care Team (Late st Contact Info) Description 12/05/2024 1:00 PM CDT [facility] 1 [place] [address] Justyn Miranda, ASSOCIATE FINANCIAL PLANNER [address] [place] [address] Discharge Disposition: Discharged to home or Selfcare documented as of this encounter Goals Goal Patient Goal Type Associated Problems Recent Progress Patient-Stated? Author I need to be able to cope better with my grief and bitterness towards my family within the next six months Behavioral Health On track(2024 12:10 PM CDT) Yes Justyn Miranda LCSW Note: Goal Reviewed today with: patient Readiness to change: Ready to change Department associated with goal: [facility] BEHAVIORAL HEALTH SERVICES Steps to achieve goal: Patient to be counseled on coping with grief, during her 45 min individual therapy sessions, 2-3 times per month Patient to be counseled on aspects of healthy self-care, during her 45 min individual sessions, 2-3 times per month Behavioral Health Behavioral Health On track(2024 12:10 PM CDT) No Justyn Miranda, CHRISTIANO Note: Goal: Patient will be able to report improved mood/coping ability for family stressors/discord, to an acceptable level within the next six months Goal Reviewed today with: patient Readiness to change: Ready to change Department associated with goal: [facility] BEHAVIORAL HEALTH SERVICES Steps [...] documented as of this encounter Care Teams Piercer Relationship Specialty Start Date End Date Milly Celaya, MULTI TOWNSHIP ASSESSOR, RADIOPHARMACIST [address] [address] PCP - General Obstetrics & Gynecology 05/23/18 Darnell Bryant MD [address] [address] Psychiatry 03/16/18 documented as of this encounter
--- OUTSIDE RECORDS SUMMARY | 2024-12-04 12:13 | XMS_ITS | Encounter Summary ---
Author Organization [facility] Address [address] [facility] [address] Phone Care Team Providers Care Grout Machine Tender Name Role Phone Wilian Sultana MD Unavailable Darnell Bryant MD Unavailable Milly Celaya APRN, MED SURG RN Primary Care Provider Unavailable Encounter Details Date Type Department Care Team (Late st Contact Info) Description 04/05/2024 [facility]al [facility] 1 [place] [address] Justyn Miranda, PIPELINE SUPERINTENDENT DIVISION [address] [place] [address] Social History Tobacco Use Types Packs/Day Years [...] Info) Description 12/05/2024 1:00 PM CDT Telemedicine [facility] Behavioral Health Services 1 [place] [address] Justyn Miranda LCSW [address] [place] [address] Discharge Disposition: Discharged to home or Selfcare [...] Ready to change Department associated with goal: [facility] BEHAVIORAL HEALTH SERVICES Steps to achieve goal: Patient to be counseled on coping with grief, during her 45 min individual therapy sessions, 2-3 times per month Patient to be counseled on aspects of healthy self-care, during her 45 min individual sessions, 2-3 times per month Behavioral Health Behavioral Health On track(2024 12:10 PM CDT) No Justyn Miranda LCSW Note: Goal: Patient will be able to report improved mood/coping ability for family stressors/discord, to an acceptable level within the next six months Goal Reviewed today with: patient Readiness to change: Ready to change Department associated with goal: [facility] BEHAVIORAL HEALTH SERVICES Steps to achieve goal: [...] documented as of this encounter Care Teams Grout Machine Tender Relationship Specialty Start Date End Date Milly Celaya, EXHIBIT ARTIST, MED SURG RN [facility] [place] [address] PCP - General Obstetrics & Gynecology 05/23/18 Wilian Sultana MD Consulting Physician Neurology 08/11/16 06/24/24 Darnell Bryant MD [address] [place] [address] Psychiatry 03/16/18 documented as of this encounter
--- OUTSIDE RECORDS SUMMARY | 2024-12-04 12:13 | XMS_ITS | Encounter Summary ---
Author Organization [facility] Address [address] [facility] [place] [address] Phone Care Team Providers Care Stereotype Finisher Name Role Phone Wilian Sultana MD Unavailable Darnell Bryant MD Unavailable Milly Celaya APRN, SOLAR MECHANICAL ENGINEER Primary Care Provider Unavailable Encounter Details Date Type Department Care Team (Late st Contact Info) Description 06/22/2024 [facility] [address] [place] [address] Justyn Miranda, CAPABILITY LEAD [address] [place] [address] Social History Tobacco Use Types Packs/Day Years [...] Info) Description 12/05/2024 1:00 PM CDT [facility] [address] [place] [address] Justyn Miranda LCSW [address] [place] [address] Discharge Disposition: Discharged to home or Selfcare [...] Ready to change Department associated with goal: [facility] BEHAVIORAL HEALTH SERVICES Steps to achieve [...] Ready to change Department associated with goal: [facility] BEHAVIORAL HEALTH SERVICES Steps to achieve [...] documented as of this encounter Care Teams Stereotype Finisher Relationship Specialty Start Date End Date Milly Celaya, FIELD MARKETING REPRESENTATIVE, SOLAR MECHANICAL ENGINEER [place] [address] PCP - General Obstetrics & Gynecology 05/23/18 Wilian Sultana MD Consulting Physician Neurology 08/11/16 06/24/24 Darnell Bryant MD [address] [place] [address] Psychiatry 03/16/18 documented as of this encounter
--- OUTSIDE RECORDS SUMMARY | 2024-12-04 12:13 | XMS_ITS | Encounter Summary ---
Author Organization [facility] - [facility] Address [facility] [place] [address] Care Team Providers Care Switch Maker Name Role Phone Sara Vela MD Primary Care Provider Gin Toth MD Unavailable Unavailable Augustin Goodson MD Unavailable [phone] Darnell Bryant MD Unavailable Leon Oneill MD Unavailable [phone] Rick Rivas MD Unavailable Encounter Details Date Type Department Care Team (Late st Contact Info) Description 01/26/[address] [employer] [address] [facility] Patient Accounts [address] [place] [address] [facility] Provider Payment Plan - Past due [...] on filedocumented in this encounter Care Teams Switch Maker Relationship Specialty Start Date End Date Sara Vela MD [address] [place] [address] PCP - General FAMILY PRACTICE 07/07/21 Gin Toth MD [address] [place] [address] CARDIOVASCULAR DISEASE 08/31/21 Augustin Goodson MD [address] [facility] [address] [place] [address] Referring Physician NEPHROLOGY 08/31/21 Darnell Bryant MD [facility] in Psychiatry [address] [facility] [place] [address] Psychiatry 08/31/21 Leon Oneill MD [address] [facility] [address] [place] [address] HEMATOLOGY/ONCOLOGY 08/31/21 Rick Rivas MD [address] [place] [address] Referring Physician RHEUMATOLOGY 08/31/21 documented as of this encounter
--- OUTSIDE RECORDS SUMMARY | 2024-12-04 12:13 | XMS_ITS | Clinical Summary ---
Author Organization [facility] Address [address] [place] [address] Care Team Providers Care Apartment Maintenance Worker Name Role Phone Sara Vela MD Primary Care Provider Source Comments [facility],non-owned Affiliates and Associated Physician Practices is amultiple site organization consisting of ambulatory clinics and hospital sitesin [place], [place], [place] and [place]. This disclosure is being madepursuant to the Care Everywhere program and may not contain all information available regarding this patient. Last updated 18.[facility] Allergies Active Allergy Reactions Criticality Noted Date Comments Contrast-Iodinated Agents Fo r Ct/Other Unknown 09/27/2016 Hydromorphone Anaphylaxis High 01/21/2017 Hr dropped to 13 Lamotrigine Urticaria Medium 11/15/2016 Levofloxacin Anaphylaxis High 01/21/2017 Paroxetine Swelling 10/20/2016 Penicillins Unknown 09/27/2016 Medications * Be aware that medications may not be up to date on this document. Alwaysverify current medications with the patient. aspirin (ASPIRIN) 81 MG tablet Take 81 mg by mouth Active metoprolol succinate XL 24hr (TOPROL XL) 25 MG tablet Reported on 01/04/2017 08/03/2016 Active ALPRAZolam (XANAX) 0.5 MG tablet Take 0.5 mg by mouth every 8 hours Active HYDROcodone-karen taminophen (NORCO) 7.5-325 MG tablet Take 1 tablet by mouth every 4 hours Active pantoprazole EC (PROTONIX) 40 MG tablet Take 40 mg by mouth Active ciprofloxacin (CIPRO) 500 MG tablet Take 500 mg by mouth 2 times daily Active Social History Tobacco Use Types Packs/Day Years Used Date Smoking Tobacco: Never Assessed Comments No Sex and Gender Information Value Date Recorded Sex Assigned at Not on file Legal Sex Female 1:35 PM JOB SETTER Gender Identity Not on file Sexual Orientation Not on file Last Filed Vital Signs Vital Sign Reading Time Taken Comments Blood Pressure 112/62 06/23/2017 4:02 PM JOB SETTER Pulse 55 06/23/2017 4:02 PM JOB SETTER Temperature 36.8 C (98.2 F) 06/23/2017 4:02 PM JOB SETTER Respiratory Rate 16 06/23/2017 4:02 PM JOB SETTER Oxygen Saturation - - Inhaled Oxygen Concentration - - Weight 67.1 kg (148 lb) 06/23/2017 4:02 PM JOB SETTER Height 157.5 cm (5' 2 ) 06/23/2017 4:02 PM JOB SETTER Body Mass Index 27.07 06/23/2017 4:02 PM JOB SETTER Plan of Treatment Health Maintenance Due Date Last Done Comments BONE DENSITY TESTING 1950 HEPATITIS C SCREENING 09/20/1966 DTAP/TDAP/TD VACCINES (1 - Tdap) 1967 PNEUMOCOCCAL VACCINE 50+ (1 of 1 - PCV) 1998 ZOSTER VACCINE (1 of 2) 1998 SCREENING FOR DIABETES 06/23/2017 Respiratory Syncytial Virus (RSV) Vaccine Pt: or over 60 yrs (1 - 1-dose 75+ series) 2023 COVID-19 VACCINE ( - 2023-2 5 season) 2024 DEPRESSION SCREENING 08/08/2024 MEDICARE AWV CALENDAR YEAR 2024 INFLUENZA VACCINE (Season Ended) 2025 HEPATITIS B VACCINE Aged Out No longe r eligible based on patient's age to complete this topic HIB VACCINE Aged Out No longer eligi ble based on patient's age to complete this topic HPV VACCINE Aged Out No longer eligi ble based on patient's age to complete this topic MENINGOCOCCAL (Group B) VACC INE SHARED DECISION-MAKING Aged Out No longer eligibl e based on patient's age to complete this topic MENINGOCOCCAL GROUPS A/C/Y/W VACCINE Aged Out No longer eligible b ased on patient's age to complete this topic Insurance MEDICARE MEDICARE HEALTHLINK AETNA MEDICARE ADV HEALTHLINK HEALTHLINK AETNA MEDICARE ADV HEALTHLINK AETNA MEDICARE ADV [employer] AETNA MEDICARE ADV Care Teams Apartment Maintenance Worker Relationship Specialty Start Date End Date Sara Vela MD [address] [place] [address] PCP - General 12/06/22
--- OUTSIDE RECORDS SUMMARY | 2024-12-04 12:13 | XMS_ITS | Clinical Summary ---
Author Organization [facility] Address [address] [facility] [place] [address] Phone Care Team Providers Care Hardwood Sawyer Name Role Phone Darnell Bryant MD Unavailable Milly Celaya APRN, FOOD SERVICE UTILITY WORKER Primary Care Provider Unavailable Allergies Active Allergy [...] Encounters Date Type Department Care Team Description 11/22/2024 12:00 PM CDT [facility] Behavioral Health Services 1 [place] [address] Justyn Miranda LCSW Generalized anxiety disorder (Primary Dx); Panic disorder; Adjustment disorder with mixed anxiety and depressed mood Discharge Disposition: Discharged to home or Selfcare 11/21/2024 Travel 11/08/2024 9:30 AM T [facility] Behavioral Health Services 1 [place] [address] Justyn Miranda LCSW Generalized anxiety disorder (Primary Dx); Panic disorder; Adjustment disorder with mixed anxiety and depressed mood Discharge Disposition: Discharged to home or Selfcare 11/08/2024 Travel 10/25/2024 11:30 AM T [facility] Behavioral Health Services 1 [place] [address] Justyn Miranda LCSW Generalized anxiety disorder (Primary Dx); Panic disorder; Adjustment disorder with mixed anxiety and depressed mood Discharge Disposition: Discharged to home or Selfcare 10/25/2024 Travel 10/09/2024 9:30 AM [facility] Telemedicine [facility] Behavioral Health Services 1 [place] [address] Justyn Miranda LCSW Generalized anxiety disorder (Primary Dx); Panic disorder; Adjustment disorder with mixed anxiety and depressed mood Discharge Disposition: Discharged to home or Selfcare 10/09/2024 Travel 09/19/2024 9:30 AM WAITER/WAITRESS INFORMAL [facility] 1 [place] [address] Justyn Miranda LCSW Generalized anxiety disorder (Primary Dx); Panic disorder; Adjustment disorder with mixed anxiety and depressed mood Discharge Disposition: Discharged to home or Selfcare 09/19/2024 Behavioral Health [facility] 1 [place] [address] Justyn Miranda LCSW 09/19/2024 Travel from Last 3 Months Family History [...] 8:47 AM CDT Respiratory Rate 16 05/17/2018 8:47 AM CDT [...] Info) Description 12/05/2024 1:00 PM CDT [facility] 1 [place] [address] Justyn Miranda, CHRISTIANO [address] [place] [address] Discharge Disposition: Discharged to home or Selfcare [...] Health On track(2024 12:10 PM CDT) No Miranda, Kren K, ASSISTANT PROFESSOR OF MARINE BIOLOGY Note: Goal: Patient will be able to [...] boundaries/expectations with family members Insurance MEDICARE C AET [place] MEDICARE Care Teams Hardwood Sawyer Relationship Specialty Start Date End Date Milly Celaya, MILKING MACHINE OPERATOR, FOOD SERVICE [place] [address] PCP - General Obstetrics & Gynecology 05/23/18 [place] [address] Psychiatry 03/16/18
--- OUTSIDE RECORDS SUMMARY | 2024-12-04 12:13 | XMS_ITS | Encounter Summary ---
Author Organization [facility] Address [address] [facility] [place] [place] [address] Phone Care Team Providers Care Cath Lab Radiological Technologist Name Role Phone Wilian Sultana MD Unavailable Darnell Bryant MD Unavailable Milly Celaya APRN, DIRECTOR CHILD Primary Care Provider Unavailable Encounter Details Date Type Department Care Team (Late st Contact Info) Description 05/22/2024 Behavioral Health [facility] 1 [place] [address] Justyn Miranda, APPEALS RN #1 [place] [address] Social History Tobacco Use Types Packs/Day Years [...] Info) Description 12/05/2024 1:00 PM CDT [facility] 1 [place] [address] Justyn Miranda LCSW #1 [place] [address] Discharge Disposition: Discharged to home or Selfcare [...] Ready to change Department associated with goal: [facility] Steps to achieve [...] Ready to change Department associated with goal: [facility] Steps to achieve [...] documented as of this encounter Care Teams Cath Lab Radiological Technologist Relationship Specialty Start Date End Date Milly Celaya, ADJUNCT PROFESSOR, DIRECTOR [place] [address] PCP - General Obstetrics & Gynecology 05/23/18 Wilian Sultana MD Consulting Physician Neurology 08/11/16 06/24/24 Darnell Bryant MD [address] [place] [address] Psychiatry 03/16/18 documented as of this encounter
--- OUTSIDE RECORDS SUMMARY | 2024-12-04 12:13 | XMS_ITS | Encounter Summary ---
Author Organization [facility] Address [address] [facility] [address] Phone Care Team Providers Care Identity Access Management Architect Name Role Phone Wilian Sultana MD Unavailable Darnell Bryant MD Unavailable Milly Celaya APRN, RIPRAP MAN Primary Care Provider Unavailable Encounter Details Date Type Department Care Team (Late st Contact Info) Description 10/04/2023 Behavioral Health [facility] 1 [place] [address] Justyn Miranda, SWATCH MAKER #1 [place] [address] Social History Tobacco Use Types Packs/Day Years [...] Info) Description 12/05/2024 1:00 PM CDT [facility] 1 [place] [address] Justyn Miranda LCSW #1 [place] [address] Discharge Disposition: Discharged to home or Selfcare [...] to change Department associated with goal: [facility] Steps to [...] to change Department associated with goal: [facility] Steps to [...] documented as of this encounter Care Teams Identity Access Management Architect Relationship Specialty Start Date End Date Milly Celaya, CODING ANALYST, RIPRAP MAN [facility] [place] [address] PCP - General Obstetrics & Gynecology 05/23/18 Wilian Sultana MD Consulting Physician Neurology 08/11/16 06/24/24 Darnell Bryant MD [address] [place] [address] Psychiatry 03/16/18 documented as of this encounter
--- OUTSIDE RECORDS SUMMARY | 2024-12-04 12:14 | XMS_ITS | CONTINUITY OF CARE DOCUMENT ---
Author Name dinorah copeland Address Unknown Organization [facility] Address [address] [place] [address] Phone [phone] Care Team Providers Care Giver Name Role Phone Gregorio Parra MD Unavailable [phone] JAIME SOARES MD Unavailable JAIME SOARES [...] DISORDER active Rory Chance ANXIETY active Rory hCance HYSTERECTOMY, HX OF active Rory Chance PALPITATIONS active Rory Chance MITRAL VALVE PROLAPSE, HX OF active Damari Leggett IRREGULAR HEART RATE active Rory Chance ENCOUNTERS Date Type Provider Location Encounter Diagnosis - In-person encounter Office Visit Gregorio Parra MD [facility] VITAL SIGNS Date Observation Value Provider [...] Interpretation Location 1 calcium, serum 10.1 mg/dL [facility] 1 blood glucose, fasting 122 mg/dL [facility] 1 creatinine, serum 1.28 mg/dL [facility] 1 urea nitrogen, blood 16 mg/dL [facility] 1 carbon dioxide, serum, total 26.3 mmol/L [facility] 1 chloride, serum 107 mmol/L [facility] 1 potassium, serum 4.1 mmol/L [facility] 1 sodium, serum 141 mmol/L [facility] HISTORY OF MEDICATION USE Medication [...] Payer name Policy type / Coverage type [place] red green party ID [place] MED[place] Medicare [id number] TREATMENT PLAN Date Name Performer FU test [...]
--- OUTSIDE RECORDS SUMMARY | 2024-12-04 12:14 | XMS_ITS | Continuity of Care Document ---
Author Organization [facility] Address [address] [place] [address] [place] [address] Phone Care Team Providers Care Staffing Branch Manager Name Role Phone Marcus Redmond Unavailable Unavailable [...] Providers Copied on Encounter Office/outpat ient Visit, [facility], [address] [place] [address] [address], [place], [place], [id number], [place] tel:[phone] [facility] [place] No Information 9-201 0 Nyla Velazquez. [address] [facility] [place] , [address], [place], [place], [facility], . tel:[phone] Office/outpat ient Visit, [facility], [address] [place] [address] [address], [place], [place], [id number], [place] tel:[phone] [facility] [place] No Information 1-200 9 Hali Barahona. [address] [facility] [place] , [address], [place], [address], . tel:[phone] Office/outpat ient Visit, [facility], [address] [place] [address] [address], [place], [place], [id number], [place] tel:[phone] [facility] [place] No Information May-0 7-200 9 Lal Brooklyn. [address] , [address], [place], [place], [facility], . tel:[phone] Office/outpat ient Visit, [facility], [address] [place] [address] [address], [place], [place], [id number], [place] tel:[phone] [facility] [place] No Information Apr-2 7-200 9 Trey Grimaldohil. [address], [place], [facility], . tel:[phone] [facility], [id number] [place] [address] [address], [place], [place], [id number], tel:[phone] [facility] [place] No Information Nov-2 3-200 9 Hali Barahona. [address] , [address], [place], [facility], . tel:[phone] [facility], [address] [place] [address] [address], [place], [place], [id number], tel:[phone] [facility] [place] No Information Ish-2 0-200 9 Hall OD Darnell. [address] , [address], [place], [facility], [place]. tel:[phone] [facility], [address] [place] [address] [address], [place], [place], [id number], [place] tel:[phone] [facility] No Information Feb-2 8-200 7 [address] OD Darnell. [address] , [address], [place], [place], [facility], . tel:[phone] Family History Family Member Type Diagnosis Age [...]
--- OUTSIDE RECORDS SUMMARY | 2024-12-04 12:14 | XMS_ITS | Encounter Summary ---
Author Organization [facility] Address [address] [facility] [place] [address] Phone Care Team Providers Care Fast Food Cashier Name Role Phone Wilian Sultana MD Unavailable Darnell Bryant MD Unavailable Milly Celaya APRN, FASHION DESIGNER Primary Care Provider Unavailable Encounter Details Date Type Department Care Team (Late st Contact Info) Description 11/08/2023 [facility] 1 [place] [address] Justyn Miranda, COMP FIELD CASE MANAGER #1 [place] [address] Social History Tobacco Use Types Packs/Day Years [...] Info) Description 12/05/2024 1:00 PM CDT [facility]med[facility] 1 [place] [address] Justyn Miranda LCSW #1 [place] [address] Discharge Disposition: Discharged to home or Selfcare [...] change Department associated with goal: [facility] Steps to [...] change Department associated with goal: [facility] Steps to [...] documented as of this encounter Care Teams Fast Food Cashier Relationship Specialty Start Date End Date Milly Celaya, TURNER OFF, FASHION DESIGNER [place] [address] PCP - General Obstetrics & Gynecology 05/23/18 Wilian Sultana MD Consulting Physician Neurology 08/11/16 06/24/24 Darnell Bryant MD [address] [place] [address] Psychiatry 03/16/18 documented as of this encounter
--- OUTSIDE RECORDS SUMMARY | 2024-12-04 12:14 | XMS_ITS | Data Portability ---
[facility] Organization [facility] Address [address] [place] [address] Assessment No assessment recorded. Plan of Treatment Reminders Order Date Submit Date Provider Last Modified By Organization Details Last Modified Time Details Appointments None recorded. Lab SARS CoV 2 RNA (COVID-19), QL, take away worker-PCR, respiratory specimen - [place], [facility] 2019 020 njeffries 9 [facility] (Lab), [address] [place], [address], 0 16:32:53 Referral None recorded. Procedures None recorded. Surgeries None recorded. Imaging None recorded. Medication Orders None recorded. Patient TargetsNo targets recorded. Patient Instructions Encounter Date Encounter Id Patient Instructions Last Modified By Organization Details Last Modified Time 12/17/2019 [id number] Reviewed the following recommendations: -Stay home and [...] SNOMED-CT Code Diagnosis ICD10 Code Diagnosis Note [id number] DAMASO JEAN [address] [place] [address] 12/17/2019 16:27:38 12/18/2019 08:40:26 Cough [id number] R05 Health Concerns Section Related Observation LastModified by Organization Detai ls LastModified Time None Recorded Concern Status LastModified by Organization Details LastModified Time None Recorded Advance Directives Directive None Recorded Payers Encounter Date Sequence Insurance Name Policy Number Policy Omer Covered Member ID Omer Member ID Guarantor Name 12/17/2019 1 [place] Kemi Espinosa [id number] Kemi Espinosa Notes Date Note Type [...] tested MADIE MATTHEW NP Attn: Accounting,[address] [place], [address], [facility] 12/17/2019 16:33:18 OBGyn Episode No OBEpisode recorded.
--- OUTSIDE RECORDS SUMMARY | 2024-12-04 12:14 | XMS_ITS | Clinical Summary ---
Author Organization [facility] Address [address] [place] [address] Phone Care Team Providers Care Fabric Awning Repairer Name Role Phone Sara Vela MD Primary Care Provider Allergies Active Allergy Reactions Criticality Noted Date Comments Amitriptyline Other (see comments) 08/31/2021 [place] drugged up a lot and felt strange [...] MG tablet 1 prn 0 7 Active [place]-3 1000 MG capsule Take 1 capsule by [...] HERPES FLARE UP 1 Active nystatin (MYCOSTATIN) 888660 UNIT/ML suspension ADMININSTER (5ML) EVERY 6 HOURS 1/2 OF DOSE IN EACH SIDE OF THE MOUTH. 1 Active mirtazapine (REMERON) 15 MG tablet TAKE 1/2 (ONE-HALF) TABLET BY MOUTH TWICE DAILY 2 Active neomycin-polymy alile-hydrocortis one (CORTISPORIN) 3.5-09208-1 otic suspension INSTILL 4 DROPS INTO LEFT [...] on file Legal Sex Female 7:44 AM [facility] Gender Identity Not on file Sexual Orientation [...] 2025 05/22/20 20 Insurance [employer] MEDICARE ADVANTAGE [employer] Care Teams Fabric Awning Repairer Relationship Specialty Start Date End Date Sara Vela MD [address] [place] [address] PCP - General Internal Medicine 08/24/21
--- OUTSIDE RECORDS SUMMARY | 2024-12-04 12:14 | XMS_ITS | Encounter Summary ---
Author Organization [facility] Address [address] [facility] [address] [place] [address] Care Team Providers Care Viscose Cellar Charge Hand Name Role Phone Leon Chandler MD Primary Care Provider [phone] Leon Chandler MD Primary Care Provider [phone] Milly Celaya NP Primary Care Provider [phone] Augustin Goodson MD Unavailable [phone] Leon Oneill MD Unavailable [phone] Rick Rivas MD Unavailable Gin Toth MD Unavailable [phone] Wilian Sultana MD Unavailable [phone] No, Physician Primary Care Provider [phone] Renetta Sarabia MD Primary Care Provider [phone] Renetta Sarabia MD Unavailable [phone] Renetta Sarabia MD Primary Care Provider [phone] Sara Vela MD Primary Care Provider Prudence Gaines MD Unavailable [phone] Encounter Details Date Type Department Care Team (Late st Contact Info) Description 08/25/2016 Orders Only [facility] ProviderMitchell MD [address] [place] [address] Social History Tobacco Use Types Packs/Day Years Used Date Smoking Tobacco: Never Alcohol Use Standard Drinks/Week Comments No 0 (1 standard drink = 0.6 oz pur e alcohol) Comments Unknown Sex and Gender Information Value Date Recorded Sex Assigned at Not on file Legal Sex Female 7:06 AM PHOTO LAB MANAGER Gender Identity Female 06/12/2021 1:30 PM CDT Sexual Orientation Not on file documented as of this encounter Plan of Treatment Not on file documented as of this encounter Procedures Procedure Name Priority Date/Time Associated Diagnosis Comments CARDIOLOGY REPORT 08/25/2016 documented in this encounter Results * CARDIOLOGY REPORT (08/25/2016) Anatomical Region Laterality Modality Other Narrative 08/25/2016 Ordered by an unspecified provider. Historical Provider [facility] Final Result documented in this encounter Visit Diagnoses Not on filedocumented in this encounter Care Teams Viscose Cellar Charge Hand Relationship Specialty Start Date End Date Leon Chandler MD PCP - General 11/05/16 03/06/18 Leon Chandler MD PCP - General 02/25/14 11/04/16 Milly Celaya NP [address] [place] [address] PCP - General Family Medicine 03/07/18 11/08/19 No, Physician PCP - General 11/09/19 12/26/19 Renetta Sarabia MD PCP - General Family Practice 12/27/19 12/27/19 Renetta Sarabia MD PCP - General Family Practice 01/03/20 09/21/21 Sara Vela MD [address] [facility] 2 [place] [address] PCP - General Family Practice 02/27/24 Augustin Goodson MD [address] [facility] 200 [place] [address] Referring Physician Nephrology 03/07/18 Leon Oneill MD [address] [facility] 200 [place] [address] Referring Physician Hematology 03/07/18 Rick Rivas MD [address] [facility] 200 [place] [address] Referring Physician Rheumatology 03/07/18 Gin Toth MD [address] [facility] [address] [place] [address] Consulting Physician Cardiology 03/07/18 02/26/24 Wilian Sultana MD [address] [facility] 3 [place] [address] Referring Physician Neurology 03/07/18 Renetta Sarabia MD Referring Physician Family Practice 12/27/19 Prudence Gaines MD [address] [facility] 22 [place] [address] Referring Physician Plastic Surgery 04/05/24 documented as of this encounter
--- OUTSIDE RECORDS SUMMARY | 2024-12-04 12:14 | XMS_ITS | Clinical Summary ---
Author Organization [facility] Medical Office Building B Address [address] [place] [address] Care Team Providers Care Laundry Worker Name Role Phone Augustin Goodson MD Unavailable [phone] Leon Oneill MD Unavailable [phone] Rick Rivas MD Unavailable Wilian Sultana MD Unavailable Renetta Sarabia MD Unavailable [phone] Sara Vela MD Primary Care Provider Prudence Gaines MD Unavailable [phone] Allergies Active Allergy Reactions Criticality Noted Date Comments Adhesive Other (See comments),Rash High 08/31/2021 Says the EKG leads being left on her skin caused 3rd degree nova of the skin. Amitriptyline Other (See comments) 08/31/2021 [place] drugged up a lot and felt strange [...] tablet Take 1 tablet by mouth 11/01/[address] (CYMBALTA) 30 mg capsuleIndication s:Neuropathic Pain Take 1 capsule (30 mg total) by mouth daily 90 capsule 3 11/07/19 25 2025 Active HYDROcodone-aceta minophen (VICODIN) 10-300 mg per tablet every 6 hours 09/25/192024 Discontinued(P atient Reported) amitriptyline (ELAVIL) 25 mg [...] 12/26/2018 Assessment & Plan (10/04/2018 9:33 PM RESOURCE DEVELOPMENT DIRECTOR): Rapid flu in office was negative as [...] Encounters Date Type Department Care Team Description 11/19/2024 Telephone [facility] [address] [facility] [address] [place] [address] Altagracia Laura MD PhD SPK W/NURSE 11/06/2024 10:00 AM CDT - 11/06/2024 11:59 PM CDT Hospital Encounter [facility] [address] [place] [address] [place] [address] Altagracia Laura MD PhD Complex regional pain syndrome type 2 of right upper extremity (Primary Dx); Ulnar neuropathy of right upper extremity; Neuropathic pain Discharge Disposition: Discharge to home or self care 10/30/2024 11:30 AM CDT Therapy [facility] [address] [place] [address] [place] [address] Aaliyah Koenig DPT 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) 10/23/2024 11:30 AM CDT Therapy [facility] [address] [place] [address] [place] [address] Aaliyah Koenig DPT 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) 10/16/2024 10:30 AM CDT Therapy [facility] Physical [address] [place] [address] Aaliyah Koenig DPT 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) 10/11/2024 1:00 PM RESOURCE DEVELOPMENT DIRECTOR Therapy [facility] Physical [address] [place] [address] Aaliyah Koenig DPT 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) 10/04/2024 1:15 PM RESOURCE DEVELOPMENT DIRECTOR Office Visit [facility] [address] [place] [address] [place] [address] Telma Frost MD 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) 10/02/2024 11:30 AM RESOURCE DEVELOPMENT DIRECTOR Therapy [facility] [address] [place] [address] [place] [address] Mimi Coelho DPT 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) 09/26/2024 Telephone [facility] [address] [place] [address] [place] [address] Aaliyah Koenig DPT patient question 09/17/2024 2:00 PM RESOURCE DEVELOPMENT DIRECTOR Therapy [facility] 6th [place] [address] [place] [address] Aaliyah Koenig DPT 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) 09/13/2024 Plan of Care Documentation [facility] [address] [place] [address] 6th [place] [address] [place] [address] 09/11/2024 11:30 AM RESOURCE DEVELOPMENT DIRECTOR Therapy [facility] [address] [place] [address] 6th [place] [address] [place] [address] Aaliyah Koenig DPT 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); 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, right 09/07/2024 1:00 PM RESOURCE DEVELOPMENT DIRECTOR Therapy [facility] Physical [address] [place] [address] [place] [address] Mimi Coelho DPT 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) from Last 3 Months Immunizations Immunization Administration Dates Next Due Influenza, Quad, Adjuvantated, Intramuscular Pneumococcal Conjugate PCV 13 07/17/2020 Surgical History Surgery Date Site/Laterality Comments CATARACT EXTRACTION HYSTERECTOMY Medical History Medical History Date Comments Hx Other Medical Parkinson's Dis ease ??? Hx Other Medical On [place] Anxiety disorder Anxiety Hx Other Medical Back Injury Arthritis Cataract Depression Migraines Hypertension Thyroid disease Ear problems Heart disease Chronic kidney disease Neuromuscular disorder (HCC) Family History Medical History Relation Name Comments Brain cancer Father Brain tumor; Ca use of : Brain tumor Alcohol abuse Mother Erin Breast cancer Mother Erin Cancer, breast ; Cause of : Cancer, breast COPD Mother [place] Cancer Mother Erin Depression Mother Erin Hypertension [...] on file Legal Sex Female 7:06 AM RESOURCE DEVELOPMENT DIRECTOR Gender Identity Female 06/12/2021 1:30 PM CDT [...] Most Recently Relevant to Health Maintenance Insurance [facility] ADVANTRA HEALTHLINK OPEN ACCESS [employer] OPEN ACCESS [facility] Care Teams Laundry Worker Relationship Specialty Start Date End Date Sara Vela MD [facility] [address] [place] [address] PCP - General Family Practice 02/27/24 Augustin Goodson MD Referring Physician Nephrology 03/07/18 Leon Oneill MD [address] [place] [id number] Referring Physician Hematology 03/07/18 Rick Rivas MD [address] [facility] 200 [place] [address] Referring Physician Rheumatology 03/07/18 Wilian Sultana MD 1 [facility] 3 [place] [address] Referring Physician Neurology 03/07/18 Renetta Sarabia MD 1 [facility] 3 [place] [address] Referring Physician Family Practice 12/27/19 Prudence Gaines MD [address] [facility] 22 [place] [address] Referring Physician Plastic Surgery 04/05/24
--- OUTSIDE RECORDS SUMMARY | 2024-12-04 12:14 | XMS_ITS | Encounter Summary ---
Author Organization [facility] Address [address] [facility] [place] [address] Phone Care Team Providers Care Er Rn Name Role Phone Wilian Sultana MD Unavailable Darnell Bryant MD Unavailable Milly Celaya APRN, FIRE ENGINEER Primary Care Provider Unavailable Encounter Details Date Type Department Care Team (Late st Contact Info) Description 12/20/2023 [facility] 1 [place] [address] Justyn Miranda, WOOD [employer] WOOD PRODUCTS LABOURER #1 [place] [address] Social History Tobacco Use Types Packs/Day Years [...] Info) Description 12/05/2024 1:00 PM CDT [facility] 1 [place] [address] Justyn Miranda LCSW #1 [place] [address] Discharge Disposition: Discharged to home or Selfcare [...] documented as of this encounter Care Teams Er Rn Relationship Specialty Start Date End Date Milly Celaya, RN MANAGER, FIRE ENGINEER [facility] [place] [address] PCP - General Obstetrics & Gynecology 05/23/18 Wilian Sultana MD Consulting Physician Neurology 08/11/16 06/24/24 Darnell Bryant MD [address] [place] [address] Psychiatry 03/16/18 documented as of this encounter
--- OUTSIDE RECORDS SUMMARY | 2024-12-04 12:14 | XMS_ITS | Clinical Summary ---
Author Organization [facility] Address [address] [place] [address] Care Team Providers Care Fire Claims Adjuster Name Role Phone Renetta Sarabia MD Primary [...] tongue Continuous as needed. 09/29/19 19 Active [place]-3 Fatty Acids 1,000 mg Capsule Take 1 [...] by mouth. Active naloxone (NARCAN) 4 mg/spray [place], Non-Aerosol EMERGENCY USE ONLY: Administer 1 spray [...] Comments Blood Pressure 121/77 07/19/2024 3:24 PM ASSOCIATE Pulse 75 07/19/2024 3:24 PM ASSOCIATE Temperature 36.1 C (97 F) 07/19/2024 3:24 PM ASSOCIATE Respiratory Rate 16 07/19/2024 3:24 PM ASSOCIATE Oxygen Saturation 96% 07/19/2024 3:24 PM ASSOCIATE Inhaled Oxygen Concentration - - Weight 70.8 kg (156 lb) 07/19/2024 3:24 PM ASSOCIATE Height 167.6 cm (5' 6 ) 07/08/2021 9:25 AM ASSOCIATE Body Mass Index 25.18 07/08/2021 9:25 AM ASSOCIATE Plan of Treatment Upcoming Encounters Date Type Department Care Team (Late st Contact Info) Description 07/22/2025 1:00 PM ASSOCIATE Office Visit [facility] Oncology and Hematology - [place] [address] [place] [address] Leon Oneill MD [address] [facility] [address] [place] [address] Health Maintenance Due Date Last Done Comments DTAP/TDAP/TD VACCINES (1 - Tdap) 1969 ZOSTER VACCINE (1 of 2) 1969 PNEUMOCOCCAL VACCINE 50+ YEA RS (2 of 2 - PPSV23) 11/03/2020 09/08/2020, 07/17/2020 OSTEOPOROSIS SCREENING 11/18/2021 11/18/2016 RSV VACCINE (60+ or ) (1 - 1-dose 75+ series) 2023 INFLUENZA VACCINE (#1) 2024 05/22/2020 Preventative Visit- Commercial 08/08/2024 Insurance [employer] PPO [employer] P[employer] Care Teams Fire Claims Adjuster Relationship Specialty Start Date End Date Renetta Sarabia MD PCP - General Family Practice 12/21/19
--- OUTSIDE RECORDS SUMMARY | 2024-12-04 12:14 | XMS_ITS | Referral Summary ---
Author Organization [facility] Address [address] [place] [address] Care Team Providers Care Cement Mason Name Role Phone Augustin Goodson MD Unavailable Leon Oneill MD Unavailable [phone] Rick Rivas MD Unavailable Wilian Sultana MD Unavailable [phone] Renetta Sarabia MD Unavailable Sara Vela MD Primary Care Provider Prudence Gaines MD Unavailable [phone] Encounters Date Type Department Care Team Description 11/19/2024 Telephone [facility] [address] [place] [address] [facility] [address] [place] [id number] Altagracia Laura MD PhD SPK W/NURSE 11/06/2024 10:00 AM CDT - 11/06/2024 11:59 PM CDT Hospital Encounter [facility] at the [facility] Advanced [facility] [address] [place] [address] Altagracia Laura MD PhD Complex regional pain syndrome type 2 of right upper extremity (Primary Dx); Ulnar neuropathy of right upper extremity; Neuropathic pain Discharge Disposition: Discharge to home or self care 10/30/2024 11:30 AM CDT Therapy [facility] [address] [place] [address] 6th [place] [address] Aaliyah Koenig DPT 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) 10/23/2024 11:30 AM CDT Therapy [facility] [address] [place] [address] 6th [place] [address] [place] [address] Aaliyah Koenig DPT 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) 10/16/2024 10:30 AM CDT Therapy [facility] [address] [place] [address] 6th [place] [address] [place] [address] Aaliyah Koenig DPT 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) 10/11/2024 1:00 PM SPACE CONTROL AGENT Therapy [facility] [address] [place] [address] 6th [place] [address] [place] [address] Aaliyah Koenig DPT 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) 10/04/2024 1:15 PM SPACE CONTROL AGENT Office Visit [facility] Surgery [address] [place] [address] 6th [place] [address] [place] [address] Telma Frost MD 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) 10/02/2024 11:30 AM SPACE CONTROL AGENT Therapy [facility] [address] [place] [address] 6th [place] [address] [place] [address] Mimi Coelho DPT 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) 09/26/2024 Telephone [facility] [address] [place] [address] 6th [place] [address] [place] [address] Aaliyah Koenig DPT patient question 09/17/2024 2:00 PM SPACE CONTROL AGENT Therapy [facility] [address] [place] [address] 6th [place] [address] [place] [address] Aaliyah Koenig DPT 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) 09/11/2024 11:30 AM SPACE CONTROL AGENT Therapy [facility] [address] [facility] 6th [place] [address] [place] [address] Aaliyah Koenig, YADIELT 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); 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, right 09/13/2024 Plan of Care Documentation [facility] Physical [facility] [address] [facility] 6th [place] [address] [place] [address] 09/07/2024 1:00 PM SPACE CONTROL AGENT Therapy [facility] [address] [facility] 6th [place] [address] [place] [address] Mimi Coelho, DPT 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) from Last 3 Months Allergies Active Allergy Reactions Criticality Noted Date Comments Adhesive Other (See comments),Rash High 08/31/2021 Says the EKG leads being left on her skin caused 3rd degree nova of the skin. Amitriptyline Other (See comments) 08/31/2021 [place] drugged up a lot and felt strange [...] 12/26/2018 Assessment & Plan (10/04/2018 9:33 PM SPACE CONTROL AGENT): Rapid flu in office was negative as [...] on file Legal Sex Female 7:06 AM SPACE CONTROL AGENT Gender Identity Female 06/12/2021 1:30 PM CDT [...] to Health Maintenance Results * MAMMOGRAPHY (12/06/2018) Pathologist [facility] Mammogram Normal Historical Provider HEALTH MAINTENANCE Final Result * COLONOSCOPY (03/19/2013 8:29 AM CDT) [facility] Colonoscopy Normal Historical Provider HEALTH MAINTENANCE Final Result * DEXA SCAN (12/20/2008) Pathologist [facility] DEXA Scan Unknown Historical Provider HEALTH MAINTENANCE Final Result from Last 3 Months or Most Recently Relevant to Health Maintenance [facility] ACCESS [facility] [employer] OPEN ACCESS [facility] HEALTHLINK OPEN ACCESS Care Teams Cement Mason Relationship Specialty Start Date End Date Sara Vela MD [facility] [facility] [address] [place] [address] PCP - General Family Practice 02/27/24 Augustin oGodson MD Referring Physician Nephrology 03/07/18 Leon Oneill MD [address] [place] [address] Referring Physician Hematology 03/07/18 Rick Rivas MD [address] [facility] [address] [place] [address] Referring Physician Rheumatology 03/07/18 Wilian Sultana MD [address] [facility] [address] [place] [address] Referring Physician Neurology 03/07/18 Renetta Sarabia MD [address] [facility] [address] [place] [address] Referring Physician Family Practice 12/27/19 Prudence Gaines MD [address] [place] [address] Referring Physician Plastic Surgery 04/05/24
--- OUTSIDE RECORDS SUMMARY | 2024-12-04 12:14 | XMS_ITS | Encounter Summary ---
Author Organization [facility] Address [address] [facility] [place] [address] Phone Care Team Providers Care Treasury Accountant Name Role Phone Wilian Sultana MD Unavailable Darnell Bryant MD Unavailable Milly Celaya APRN, BOTTLE HOUSE QUALITY CONTROL TECHNICIAN Primary Care Provider Unavailable Encounter Details Date Type Department Care Team (Late st Contact Info) Description 02/02/2024 Behavioral Health [facility] [address] [place] [address] Justyn Miarnda, ASSEMBLER WET WASH [address] [place] [address] Social History Tobacco Use Types Packs/Day Years [...] Info) Description 12/05/2024 1:00 PM CDT [facility]icine [facility] [address] [place] [address] Justyn Miranda LCSW [address] [place] [address] Discharge Disposition: Discharged to home or Selfcare [...] Ready to change Department associated with goal: [facility] Steps to achieve goal: [...] Ready to change Department associated with goal: [facility] Steps to achieve goal: [...] documented as of this encounter Care Teams Treasury Accountant Relationship Specialty Start Date End Date Milly Celaya, IT PROGRAMMER, BOTTLE HOUSE QUALITY CONTROL TECHNICIAN [facility] [place] [address] PCP - General Obstetrics & Gynecology 05/23/18 Wilian Sultana MD Consulting Physician Neurology 08/11/16 06/24/24 Darnell Bryant MD [address] [place] [address] Psychiatry 03/16/18 documented as of this encounter
--- OUTSIDE RECORDS SUMMARY | 2024-12-04 12:14 | XMS_ITS | Encounter Summary ---
Author Organization [facility] Address [address] [place] [place] [address] Phone Care Team Providers Care Msws Name Role Phone Wilian Sultana MD Unavailable Darnell Bryant MD Unavailable Milly Celaya APRN, REGULATORY AND COMPLIANCE TECHNICIAN Primary Care Provider Unavailable Encounter Details Date Type Department Care Team (Late st Contact Info) Description 02/02/2023 Behavioral Health [facility] Survey [facility] [address] [place] [address] Justyn Miranda, [facility] [address] [place] [address] Social History Tobacco Use Types Packs/Day Years [...] Info) Description 12/05/2024 1:00 PM CDT Telemedicine [facility] [address] [place] [address] Justyn Miranda LCSW [address] [place] [address] Discharge Disposition: Discharged to home or Selfcare [...] Ready to change Department associated with goal: [facility] Steps to achieve goal: [...] Ready to change Department associated with goal: [facility] Steps to achieve goal: [...] documented as of this encounter Care Teams Msws Relationship Specialty Start Date End Date Milly Celaya, INTELLECTUAL PROPERTY PARALEGAL, REGULATORY AND COMPLIANCE TECHNICIAN [address] [place] [address] PCP - General Obstetrics & Gynecology 05/23/18 Wilian Sultana MD Consulting Physician Neurology 08/11/16 06/24/24 Darnell Bryant MD [address] [place] [address] Psychiatry 03/16/18 documented as of this encounter
--- OUTSIDE RECORDS SUMMARY | 2024-12-04 12:14 | XMS_ITS | Encounter Summary ---
Author Organization [facility] Address [address] [place] [address] Care Team Providers Care Wool Grader Name Role Phone Sara Vela MD Primary Care Provider Gin Toth MD Unavailable Unavailable Augustin Goodson MD Unavailable [phone] Darnell Bryant MD Unavailable [phone] Leon Oneill MD Unavailable Rick Rivas MD Unavailable Encounter Details Date Type Department Care Team (Late st Contact Info) Description 11/19/2021 MyChart Message Enc [facility] Orthopedic & Sports Medicine - [address] [address] Rudy Velasquez MD I need help please [...] on filedocumented in this encounter Care Teams Wool Grader Relationship Specialty Start Date End Date Sara Vela MD [address] [place] [address] PCP - General FAMILY PRACTICE 07/07/21 Gin Toth MD [address] [place] [address] CARDIOVASCULAR DISEASE 08/31/21 Augutsin Goodson MD [address] [facility]] [address] [place] [address] Referring Physician NEPHROLOGY 08/31/[address] [facility] in Psychiatry [address] [facility] [place] [address] Psychiatry 08/31/21 Leon Oneill MD [address] [facility] [address] [place] [address] HEMATOLOGY/ONCOLOGY 08/31/21 Rick Rivas MD [address] [place] [address] Referring Physician RHEUMATOLOGY 08/31/21 documented as of this encounter
--- OUTSIDE RECORDS SUMMARY | 2024-12-04 12:14 | XMS_ITS | Data Portability ---
Author Organization [place] [facility] [employer], Main Office Address [address] [place] [address] Care Team Providers Care Director Advertising Name Role Phone NOLBERTO MAYA Primary Care Provider NOLBERTO MAYA Referring Provider Assessment Encounter Date Assessment Date Assessment LastModified [...] a dose pack 024 024 [id number] [facility] [id number] In [facility], [address] [place] [address], [address], 16:24:30 Patient TargetsNo targets recorded. Patient InstructionsNo [...] patie nt manag ement decis ions. Negat sarina resul ts shoul d be consi dered in the scarlett xt of a patie nt's recen t expos ures, histo ry and the prese nce of clini kareen signs and sympt oms consi stent with COVID -19. Plesaige e bess w the Fact Sheet s for healt h care provi ders and patie nts at the [facility] te: https ://gl oalpo intof care. abbot t/en/ produ ct-de tails /id-n ow-co vid-1 9.htm l Metho dolog y: Isoth ermal Nucle ic Acid Ampli ficat ion Not Available [facility] (Lab) [address] [place], [address], 02/09/2021 14:48:57 02/04/20 21 01/28/2021 XR, knee, 3 view No observ ation record ed. [id number] Not Available 10/06/2022 06:05:32 02/05/20 21 XR, knee No observ ation record ed. [id number] [facility] [place] [address], [place], [address], 10/06/2022 06:05:32 02/06/20 21 MRI, knee, w/o contr ast [facility] [address] [place] [address] Patien t Name: STEPHANE BANKS Access ion #: [id number] Sex: F : 1950 7 Locati [...] t Name: STEPHANE BANKS Access ion #: [id number] Sex: F : 1950 7 Exam Date: 02/06/20 8:41 AM Exam Name: MRI KNEE LT WO Admitt ing Diagno sis(es ): partia l tear. The tanbark peeler ior horn of the medial menisc us demons trates a comple x tear. The tanbark peeler ior horn of the medial menisc us is extrud ed in a medial direct ion. The latera l menisc us is intact . The tanbark peeler olater al corner struct ures are normal appear ing. The extens or mechan ism is intact . The overly ing muscul ature demons trates normal signal and morpho logy. IMPRES KAREN: Paper Stripper ior horn medial menisc al tear. Modera te chondr omalac ia patell a. Small joint effusi on. Possib le partia l tear of the PCL. Create d and electr onical ly signed by: Narinder Tuttle ch, DO Signed Date: 02/06/20 9:53 AM (CT) Dictat ed by: Narinder Tuttle ch, DO (CT) (CT) Page 2 of 2 [id number] [facility] (Imaging) [address] [place], [address], 10/06/2022 06:05:32 12/29/19 24 XR, wrist No observ ation record ed. [email or web address] Not Available 2023 17:11:55 Result Notes None recorded. 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 Toth (cardiolo gy) Not Available [facility] 3 05:58:35 Scoliosis deformity of spine 416983592 Active 1997 Not Available [facility] 3 05:58:35 Diverticu litis 358940932 Active 2019 Not Available [facility] 3 05:58:35 Panic disorder 745904139 Active 1979 Not Available [facility] 3 05:58:35 Arthritis 3215895 Active 2015 Worse back Not Available [facility] 3 05:58:36 Psoriasis 5345720 Active 1999 Not Available [facility] 3 05:58:36 Kidney disease 21008250 Active 1999 stage 2- 42%. Dr. Augustin Zuluaga (nephrolo gy) Not Available [facility], [facility] 3 05:58:36 Pain of right wrist 55039792627 9100 Active 2023 Nalini Hunter [facility], [place] [employer] [facility] 4 15:47:43 Contusion of right wrist 31068586524 324672 Active 2023 OUMOU Ramon [address] [facility], [address] [address], [place], [address] , [employer] [facility] 4 17:07:11 Sprain of right wrist 18645036763 268181 Active 2023 OUMOU Ramon [address] [facility], [address] [address], [place], [address] , [employer] [facility] 4 17:07:20 Problem Notes None recorded. Procedures Surgical History Date Name Laterality Status Provider Name and Address Organization Details Recorded Time 02/11/20 21 Knee arthroscopy/surg dayday completed Not Available [facility], [facility] 10/06/2022 05:53:40 Hysterectomy completed Not Available [facility] 10/06/2022 05:53:40 Foot Surgery completed Not Available [facility] 10/06/2022 05:53:40 Colonoscopy completed [facility] 01/05/2024 15:45:11 Endoscopy completed [facility] 01/05/2024 15:45:30 Cataract Surgery completed [facility] 01/05/2024 15:45:52 Eye Surgery completed [facility] 01/05/2024 15:46:18 Imaging Results Imaging Date Name Status LastModified by Organiz ation Details LastModified Time 02/04/2021 XR, knee completed [id number] [facility] [facility] [address], [place], [address], 10/06/2022 06:05:32 01/28/2021 XR, knee, 3 view completed [id number] Information not available 10/06/2022 06:05:32 02/05/2021 MRI, knee, w/o contrast completed [id number] [facility] (Imaging) [address] [place], [address], 10/06/2022 06:05:32 12/29/2023 XR, wrist completed Information no t available 12/29/2023 17:11:55 Procedure Notes None recorded. Medical Equipment None Reported. Allergies Allergen ID Allergen Name Allergen Category Reaction Reaction Severity Criticality Documentation Date Start Date Code Code System Note Provider Name and Address Organization Details Recorded Time 98646 Substance with sulfonami de structure and antibacte rial mechanism of action (substanc e) medicatio n anaphylax is severe Not available 10/06/2022 12510 8003 SNOMED Not Available [facility] 3 06:05:19 70267 prednisol one medicatio n palpitati ons severe Not available 10/06/2022 8638 RxNorm Not Available [facility] 3 06:05:20 64528 Product containin g penicilli n (product) medicatio n rash severe Not available 10/06/2022 36615 8001 SNOMED Not Available [facility] 3 06:05:20 99451 Levaquin medicatio n anaphylax is severe Not available 10/06/2022 35019 2 RxNorm Not Available [facility], [facility] 3 06:05:20 47111 Dilaudid medicatio n anaphylax is severe Not available 10/06/2022 54224 3 RxNorm Not Available [facility], [facility] 3 06:05:20 68586 Bactrim medicatio n anaphylax is severe Not available 10/06/2022 83178 9 RxNorm Not Available [facility] 3 06:05:20 85148 cortisone medicatio n Not available Not available Not available 01/05/2024 2878 RxNorm injec NILSON A[facility] [place] [facility] [employer] 4 15:39:42 Medications Name Sig Start Date [...] Not Available No t Available Fluad Quad 7982-5191 (65yr up)(PF) 60 mcg (15 mcg x 4)/0.5mL IM syringe ADMINIST ER 0.7ML IN THE MUSCLE DIRECTED 08/21 completed Not Available Not Available Not Available Vitals Date Recorded Body height Provider Name an d Address Organization Details Last Updated DateTime 02/04/2021 157.48 cm Not Available [facility], [facility] 3 05:55:19 Date Recorded Body height Provider Name an d Address Organization Details Last Updated DateTime 02/05/2021 157.48 cm Not Available [facility] 3 05:55:20 Date Recorded Body height Provider Name an d Address Organization Details Last Updated DateTime 02/19/2021 157.48 cm Not Available [facility] 3 05:55:20 Date Recorded Body height Provider Name an d Address Organization Details Last Updated DateTime 03/12/2021 157.48 cm Not Available [facility] 3 05:55:20 Date Recorded Body height Body mass index (BMI) Body weight Provider Name and Address Organization Details Last Updated DateTime 01/05/2024 157.48 cm 27.4 kg/m2 28208.86 g Nalini Harrison [place] [facility] 01/05/2024 15:37:50 Social History Question Answer Notes LastModified by Organizat ion Details LastModified Time Tobacco Smoking Status Never Smoker Not Available [facility] 10/06/2022 05:53:25 What Was The Date Of Your Most Recent Tobacco Screening? 10/15/2020 [id number] Information not available 10/06/2022 Sex: Unknown Functional Status None recorded. Mental Status None recorded. Family History Relationship Description Onset Age of this Age Resolved Age Notes LastModified by Organization Details LastModified Time Mother Complication of anesthesia [id number] Not available 10/06/2022 05:53:42 Mother Family history of malignant neoplasm [id number] Not available 10/06/2022 05:53:42 Father Family history of malignant neoplasm [id number] Not available 10/06/2022 05:53:42 Mother Heart disease [email or web address] Not available 2023 15:43:54 Mother Hypertensive disorder [email or web address] Not available 2023 15:44:28 Medical History Condition Response ARTHRITIS Y SKIN PROBLEMS Y HEART ARRHYTHMIA Y ULCERS Y Blood Disorder Y HEART DISEASE/HEART PROBLEMS Y KIDNEY DISEASE Y HYPERTENSION Y CARDIAC ARRHYTHMIA Y ANEMIA/BLOOD DISORDER Y Gynecological HistoryNo gynecological history recorded. Obstetrics History GPAL:G 0 P 0 0 0 0 Past Encounters Encounter ID Performer Location Encounter Start Date Encounter Closed Date Diagnosis/Indication Diagnosis SNOMED-CT Code Diagnosis ICD10 Code Diagnosis Note [id number] [facility] [place] [address] [place] [address] 10/15/2020 00:00:00 11/02/2020 12:48:48 [id number] [facility] [place] [address] [place] [address] 02/04/2021 00:00:00 02/05/2021 16:43:41 [id number] [facility] [address] [address] 02/05/2021 00:00:00 02/05/2021 16:45:14 [id number] [facility] [address] [place] [address] 02/19/2021 00:00:00 02/19/2021 15:11:41 [id number] [facility] [place] [address] [place] [address] 03/12/2021 00:00:00 03/12/2021 12:31:34 [id number] OUMOU Ramon [facility] [place] [address] [place] [address] 01/05/2024 14:17:53 01/05/2024 16:30:12 Pain of right wrist 7663745892 85281 M25.531 Sprain of right wrist 11 64627634 1234396 S63.501A Contusion of right wrist 8420259506 0986357 S60.211A Health Concerns Section Related Observation LastModified by Organization Detai ls LastModified Time None Recorded Concern Status LastModified by Organization Details LastModified Time None Recorded Advance Directives Directive None Recorded Payers Encounter Date Sequence Insurance Name Policy Number Policy Omer Covered Member ID Omer Member ID Guarantor Name 01/05/2024 2 [employer] (PPO) [id number] Kemi Banks [id number] Kemi Banks 01/05/2024 1 [facility] & RADIO AERIAL INSTALLER [facility] - OPEN ACCESS III (PPO) Kemi Banks [id number] Kemi Banks Notes Date Note Type Note [...] to the emergency room that day to [facility] had x-rays performed. I have reviewed [...] of psoriatic osteoarthritis and has seen a remote medical coder for this chronically. She has had to [...] today with the patient. OUMOU Ramon [address] [facility], [facility] [address], [place], [address], [facility] [employer] 01/05/2024 17:08:00 OBGyn Episode No OBEpisode recorded.
--- OUTSIDE RECORDS SUMMARY | 2024-12-04 12:14 | XMS_ITS | Encounter Summary ---
Author Organization [facility] Address [address] [facility] [place] [address] Phone Care Team Providers Care Contracts Director Name Role Phone Wilian Sultana MD Unavailable Darnell Bryant MD Unavailable Milly Celaya APRN, NEUROSURGICAL NURSE PRACTITIONER Primary Care Provider Unavailable Encounter Details Date Type Department Care Team (Late st Contact Info) Description 03/05/2024 Behavioral Health [facility] Survey [facility] [address] [place] [address] Justyn Miranda, SUPERVISOR INTERNATIONAL RESERVATIONS [address] [place] [address] Social History Tobacco Use Types Packs/Day Years [...] 12/05/2024 1:00 PM CDT Telemedicine [facility] Services [address] [place] [address] Justyn Miranda LCSW [address] [place] [address] Discharge Disposition: Discharged to home or Selfcare [...] documented as of this encounter Care Teams Contracts Director Relationship Specialty Start Date End Date Milly Celaya, HOUSE RN, NEUROSURGICAL NURSE PRACTITIONER [facility] [place] [address] PCP - General Obstetrics & Gynecology 05/23/18 Wilian Sultana MD Consulting Physician Neurology 08/11/16 06/24/24 Darnell Bryant MD [address] [place] [address] Psychiatry 03/16/18 documented as of this encounter
--- OUTSIDE RECORDS SUMMARY | 2024-12-04 12:14 | XMS_ITS | Encounter Summary ---
Author Organization [facility] Address [address] [facility] [address] Phone Care Team Providers Care Real Estate Executive Assistant Name Role Phone Darnell Bryant MD Unavailable Milly Celaya APRN, BANK EXAMINER Primary Care Provider Unavailable Encounter Details Date Type Department Care Team (Late st Contact Info) Description 09/19/2024 Behavioral Health [facility] Survey [facility] [address] [place] [address] Justyn Miranda, TECHNICAL OPERATIONS VICE PRESIDENT [address] [place] [address] Social History Tobacco Use Types Packs/Day Years [...] Info) Description 12/05/2024 1:00 PM CDT Telemedicine [facility] [address] [place] [address] Justyn Miranda, TECHNICAL OPERATIONS VICE PRESIDENT [address] [place] [address] Discharge Disposition: Discharged to home or Selfcare [...] documented as of this encounter Care Teams Real Estate Executive Assistant Relationship Specialty Start Date End Date Milly Celaya, RUBBER MILL TENDER, BANK EXAMINER [address] [address] PCP - General Obstetrics & Gynecology 05/23/18 Darnell Bryant MD [address] [address] Psychiatry 03/16/18 documented as of this encounter
--- OUTSIDE RECORDS SUMMARY | 2024-12-04 12:14 | XMS_ITS | Clinical Summary ---
Author Organization [facility] Address [facility] [place] [address] Care Team Providers Care Dietetic Tech Name Role Phone Sara Vela MD Primary Care Provider Gin Toth MD Unavailable Unavailable Augustin Goodson MD Unavailable [phone] Darnell Bryant MD Unavailable [phone] Leon Oneill MD Unavailable [phone] Rick Rivas MD Unavailable Allergies Active Allergy Reactions Criticality Noted Date Comments Tape Rash,Other (see comment) High 08/31/2021 Says the EKG leads being left on her skin caused 3rd degree nova of the skin. Amitriptyline Other (see comment) 08/31/2021 Murchison drugged up a lot and felt strange [...] Other (Age a round January 2021) had MT, HTN, poorly controlled diabetes, in sleep with MT. patient raised him when he was a [...] AM CDT Pulse 63 10/13/2021 11:17 AM PORK CUTLET MAKER Temperature 36.4 C (97.6 F) 10/13/2021 11:17 AM PORK CUTLET MAKER Respiratory Rate 18 10/13/2021 11:1 7 AM PORK CUTLET MAKER Oxygen Saturation 99% 10/13/2021 11: 17 AM PORK CUTLET MAKER Inhaled Oxygen Concentration - - Weight 71.1 [...] 2013 Dexa Scan (General) 2013 Pneumococcal Vaccine: 50+ Years (2 of 2 - PPSV23) 07/17/2021 09/08/2020, 07/17/2020 RSV Immunization or 60+ [...] age to complete this topic Insurance [employer] [facility] Care Teams Dietetic Tech Relationship Specialty Start Date End Date Sara Vela MD [address] [place] [address] PCP - General FAMILY PRACTICE 07/07/21 Gin Toth MD [address] [place] [address] CARDIOVASCULAR DISEASE 08/31/21 Augustin Goodson MD [address] [facility] [address] [place] [address] Referring Physician NEPHROLOGY 08/31/21 Darnell Bryant MD [facility] in Psychiatry [address] [place] [address] Psychiatry 08/31/21 Leon Oneill MD [address] [facility] [address] [place] [address] HEMATOLOGY/ONCOLOGY 08/31/21 Rick Rivas MD [address] [place] [address] Referring Physician RHEUMATOLOGY 08/31/21
--- OUTSIDE RECORDS SUMMARY | 2024-12-04 12:14 | XMS_ITS | Encounter Summary ---
Author Organization [facility] [facility] Address [address] [place] [address] Care Team Providers Care Set Up And Lay Out Inspector Name Role Phone Renetta Sarabia MD Primary Care Provider Reason for Visit * Reason Onset Date Comments lab orders 07/13/2022 Encounter Details Date Type Department Care Team (Late st Contact Info) Description 07/13/2022 Telephone [facility] Oncology and Hematology - [place] [address] [place] [address] [address] [place] [address] Leon Oneill MD [address] [facility] [address] [place] [address] lab orders Social History Tobacco [...] Renetta Faith RN - 07/13/2022 10:28 AM WOOD HEEL FITTER MACHINE No labs ordered for this patient at last visit. 1 year F/U. I pended CBC, CMP, Immunoglobulins. Please add any other orders needed. HEEL FITTER MACHINE documented in this encounter Plan of Treatment Upcoming Encounters Date Type Department Care Team (Late st Contact Info) Description 07/22/2025 1:00 PM WOOD HEEL FITTER MACHINE Office Visit [facility] Oncology and Hematology - [place] [address] [facility] [address] [place] [address] Leon Oneill MD [address] [facility] [address] [place] [address] documented as of this encounter Visit Diagnoses Diagnosis Hypogammaglobulinemia- Primary Hypogammaglobulinaemia, unspecified documented in this encounter Care Teams Set Up And Lay Out Inspector Relationship Specialty Start Date End Date Renetta Sarabia MD PCP - General Family Practice 12/21/19 documented as of this encounter
--- OUTSIDE RECORDS SUMMARY | 2024-12-04 12:14 | XMS_ITS | Encounter Summary ---
Author Organization [facility] Address [address] [place] [address] Phone Care Team Providers Care Regulatory Compliance Manager Name Role Phone Wilian Sultana MD Unavailable [phone] Darnell Bryant MD Unavailable Milly Celaya APRN, PLASTER MACHINE OPERATOR Primary Care Provider Unavailable Encounter Details Date Type Department Care Team (Late st Contact Info) Description 05/25/2023 Behavioral Health Patient Survey [facility] Behavioral Health Services [address] [place] [address] Justyn Miranda, [facility] [address] [place] [address] Social History Tobacco Use Types Packs/Day Years [...] Info) Description 12/05/2024 1:00 PM CDT Telemedicine [facility] Behavioral Health Services [address] [place] [address] Justyn Miranda LCSW [address] [place] [address] Discharge Disposition: Discharged to home or Selfcare [...] Ready to change Department associated with goal: [facility] Steps to [...] Ready to change Department associated with goal: [facility] Steps to [...] documented as of this encounter Care Teams Regulatory Compliance Manager Relationship Specialty Start Date End Date Milly Celaya, COPY MANAGER, PLASTER MACHINE OPERATOR [address] [place] [address] PCP - General Obstetrics & Gynecology 05/23/18 Wilian Sultana MD Consulting Physician Neurology 08/11/16 06/24/24 Darnell Bryant MD [address] [place] [address] Psychiatry 03/16/18 documented as of this encounter
--- OUTSIDE RECORDS SUMMARY | 2024-12-04 12:14 | XMS_ITS | Encounter Summary ---
Author Organization [facility] Address [address] [place] [address] Care Team Providers Care Immigration Guard Name Role Phone Augustin Goodson MD Unavailable [phone] Leon nOeill MD Unavailable [phone] Rick Rivas MD Unavailable Wilian Sultana MD Unavailable [phone] Renetta Sarabia MD Unavailable [phone] Sara Vela MD Primary Care Provider Prudence Gaines MD Unavailable Reason for Visit * Reason Onset Date Comments SPK W/NURSE 11/19/2024 Encounter Details Date Type Department Care Team (Late st Contact Info) Description 11/19/2024 Telephone [facility] [address] [facility] [address] [place], [place] [id number] Altagracia Laura MD PhD [address] 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 Let patient know I spoke with nurse at Dr. Goodson's office. Explained what procedure patient will be getting/ medications used. Verified with patient that no anesthesia is used. Patient verbalized understanding. * Telephone Encounter - Tonia Galindo RN - 11/19/2024 4:15 PM CDT Spoke with nurse at Dr. Goodson office. Explained what a stellate ganglion block procedure entails, what medications are used. Let nurse know, this should not affect patients kidney function at all. Gave nurse my name and number in case Dr. Goodson has any questions. Nurse verbalized understanding. documented in this encounter Plan of Treatment Not on file documented as of this encounter Goals Goal Patient Goal Type Associated Problems Recent Progress Patient-Stated? Author CCM Chronic Pain Care Plan Chronic Care Management Jose M Gutierrez, RAJNI Note: Problem: Chronic Pain Goals: 1. Minimize further functional decline 2. Maximize quality of life 3. Control pain Strategies: - Activity/exercise program recommendation - Conservative stepwise pain medicine strategy with multi-disciplinary approach - Recommend healthy lifestyle strategies and compensatory methods as needed documented as of this encounter Visit Diagnoses Not on filedocumented in this encounter Care Teams Immigration Guard Relationship Specialty Start Date End Date Sara Vela MD [address] [facility] [address] [place] [address] PCP - General Family Practice 02/27/24 Augustin Goodson MD Referring Physician Nephrology 03/07/18 Leon Oneill MD [address] [place] [address] Referring Physician Hematology 03/07/18 Rick Rivas MD [address] [place] [address] Referring Physician Rheumatology 03/07/18 Wilian Sultana MD [address] [place] [address] Referring Physician Neurology 03/07/18 Renetta Sarabia MD [address] [place] [address] Referring Physician Family Practice 12/27/19 Prudence Gaines MD [address] [facility] [address] [place] [address] Referring Physician Plastic Surgery 04/05/24 documented as of this encounter
--- OUTSIDE RECORDS SUMMARY | 2024-12-04 12:15 | XMS_ITS | Encounter Summary ---
Author Organization [facility] Address [address] [facility] [place] [address] Phone Care Team Providers Care Steam Fitter Name Role Phone Wilian Sultana MD Unavailable Darnell Bryant MD Unavailable Milly Celaya APRN, CLARIFIER OPERATOR Primary Care Provider Unavailable Encounter Details Date Type Department Care Team (Late st Contact Info) Description 08/31/2023 Behavioral Health Patient Survey [facility] [address] [place] [address] Justyn Miranda, TAILOR'S AIDE [address] [place] [address] Social History Tobacco Use Types Packs/Day Years [...] 12/05/2024 1:00 PM CDT Telemedicine [facility] [address] [place] [address] Justyn Miranda LCSW [address] [place] [address] Discharge Disposition: Discharged to home or Selfcare [...] documented as of this encounter Care Teams Steam Fitter Relationship Specialty Start Date End Date Milly Celaya, SHIP LABORER, CLARIFIER OPERATOR [place] [address] PCP - General Obstetrics & Gynecology 05/23/18 Wilian Sultana MD Consulting Physician Neurology 08/11/16 06/24/24 Darnell Bryant MD [address] [place] [address] Psychiatry 03/16/18 documented as of this encounter
--- OUTSIDE RECORDS SUMMARY | 2024-12-04 12:15 | XMS_ITS | Encounter Summary ---
Author Organization [facility] Address [address] [facility] [place] [address] Phone Care Team Providers Care Classroom Instructional Aide Name Role Phone Wilian Sultana MD Unavailable Darnell Bryant MD Unavailable Milly Celaya APRN, FURNACE FILLER Primary Care Provider Unavailable Encounter Details Date Type Department Care Team (Late st Contact Info) Description 03/11/2023 Behavioral Health Patient Survey [facility] [address] [place] [address] Justyn Miranda, [facility] [address] [place] [address] Social History Tobacco Use Types Packs/Day Years [...] Info) Description 12/05/2024 1:00 PM CDT Telemedicine [facility] [address] [place] [address] Justyn Miranda LCSW [address] [place] [address] Discharge Disposition: Discharged to home or Selfcare [...] documented as of this encounter Care Teams Classroom Instructional Aide Relationship Specialty Start Date End Date Milly Celaya, PACKER FUSER, FURNACE FILLER [address] [address] PCP - General Obstetrics & Gynecology 05/23/18 Wilian Sultana MD Consulting Physician Neurology 08/11/16 06/24/24 Darnell Bryant MD [address] [place] [address] Psychiatry 03/16/18 documented as of this encounter
== END 2024-12-04 10:52 | disposition home or self-care (01) ==
PROVIDERS: PCP Family Medicine; Visit Provider Family Medicine
DX: R92.8 Other abnormal and inconclusive findings on diagnostic imaging of breast (principal); N63.42 Unspecified lump in left breast, subareolar
CPT/HCPCS: 76642; 77062; 77066; G0279

== ENCOUNTER 2024-12-10 16:17 | Emergency (ER) | payer OTHER, MEDICARE, SELFPAY ==
[2024-12-10] VITALS (10 sets, daily range): BP systolic 93–123; BP diastolic 45–82; PULSE 73–90; RESP 16–20; TEMP 37.1–37.2; O2SAT 95–99
--- NOTE | ~2024-12-10 | CT_ITS ---
CLINICAL INDICATION: Abdominal pain, nausea vomiting and diarrhea COMPARISON: 09/06/2024. TECHNIQUE: Multiple contiguous axial images of the abdomen and pelvis were performed without the admi nistration of intravenous contrast The dose-length product (DLP) was 404.89 mGy-cm. Automated exposure control and iterative reconstruction technique were employed. FINDINGS/OBSERVATIONS: Visualized lower thorax: Bibasilar atelectasis. The remainder of the lungs are clear. The heart is of normal size, without pericardial effusion. Small hiatal hernia is present. Liver: The liver demonstrates homogeneous attenuation and is not enlarged. Gallbladder and biliary system: The gallbladder is surgically absent. Pancreas: Limited evaluation of the pancreas secondary to the lack of intravenous contrast. Spleen: The spleen demonstrates homogeneous attenuation and is not enlarged. Kidneys: No calcified stones within the bilateral kidneys. Adrenal glands: Unremarkable. Gastrointestinal tract: Mural thickening within the sigmoid colon with surrounding inflammatory change and multiple diverticu la, findings consistent with acute diverticulitis, an interval change from prior. Appendix: The appendix is not definitively visualized. However, no pericecal inflammatory change is identified suggest the presence of acute appendicitis. Vasculature: Unremarkable. Lymph nodes: No pathologically enlarged or morphologically suspicious lymph nodes within the retroperitoneum or at the root of the mesentery. Pelvic structures: The bladder is only minimally distended, and otherwise unremarkable. The uterus is atrophic. Body wall and musculoskeletal: Small fat-containing umbilical hernia. Age-appropriate degenerative disease within the lumbosacral spine. IMPRESSION: Findings consistent with acute sigmoid diverticulitis without a drainable fluid collection or gross p erforation. Follow-up to resolution is recommended as a malignancy may have a similar appearance. Reviewed, dictated and finalized at location A. IMPRESSION: Findings consistent with acute sigmoid diverticulitis without a drainable fluid collection or gross perforation. Follow-up to resolution is recommended as a malignancy may have a similar appea [place].
--- NOTE | 2024-12-10 16:22 | ED.ABDPAIN ---
HPI - Abdominal Pain General Chief Complaint: Abdominal Pain <Mallory Hawkins PA-C - Last Filed: 12/12/24 09:23> Stated Complaint: abd pain sent by [facility] <Mallory Hawkins PA-C - Last Filed: 12/12/24 09:23> Time Seen by Provider: 12/10/24 16:23 <Mallory Hawkins PA-C - Last Filed: 12/12/24 09:23> Focused HPI: This is a 74 year old female that presents to the ER for abdominal pain. Reports associated nausea, anorexia, vomiting, loose stools. GENERAL: Uncomfortable, well-nourished, and in no acute distress. HEAD: Normocephalic, atraumatic. CHEST: No respiratory distress. HEART: Regular rate NEURO: ?Alert and oriented x3. Patient screened in triage and initial orders placed.? ?Additional care and disposition to be based upon?diagnostic testing and treatment. <Mallory Hawkins PA-C - Last Filed: 12/12/24 09:23> History of Present Illness HPI narrative: 74-year-old female with history of GERD, IBS, CKD stage 3, type 2 diabetes, PTSD, hypertension, diverticulitis, chronic abdominal pain presents emergency department with family at bedside for abdominal pain for the past 2 days. Patient states the pain started in her lower abdomen is now diffuse throughout her abdomen with associated distension. Also endorsing nausea and vomiting and decreased p.o. intake. Patient states she has had intermittent fevers at home with a T-max of 102.7? 2 days ago, fever has been around 100 since. Patient took Tylenol around 2:00 p.m. today. She denies chest pain or shortness of breath, dysuria or hematuria, diarrhea. Last bowel movement was yesterday and normal. Endorses a prior history of cholecystectomy and hysterectomy. Patient is followed by [facility] for [facility]. Patient contacted the GI office and was advised to come to the ED for further evaluation. <Mojgan Correa PA-C - Last Filed: 12/10/24 21:38> Related Data Home Medications: Home Medications ?Medication ?Instructions ?Recorded ?Confirmed ?Last Taken ?Type metoprolol succinate 25 mg 25 mg PO BID 01/09/21 11/29/24 11/07/23 History tablet,extended release 24 hr alprazolam 0.5 mg tablet 0.5 mg PO QID PRN Anxiety 08/19/21 11/29/24 Unknown History aspirin 325 mg tablet,delayed 325 mg PO DAILY 08/19/21 11/29/24 Unknown History release hydrocodone 10 mg-acetaminophen 1 tablet PO Q6-8H PRN Pain 08/19/21 11/29/24 Unknown History 325 mg tablet sumatriptan succinate 50 mg tablet See Rx Instructions PO .COMPLEX 10/28/23 11/29/24 Unknown History (Imitrex) PRN Migraine Headache acyclovir 400 mg tablet 400 mg PO BID PRN 08/23/24 11/29/24 Unknown History <Mallory Hawkins PA-C - Last Filed: 12/12/24 09:23> Allergies/Adverse Reactions: Allergies Allergy/AdvReac Type Severity Reaction Status Date / Time carbamazepine Allergy Severe Anaphylaxis Verified 12/10/24 18:03 cefuroxime Allergy Severe Anaphylaxis Verified 12/10/24 18:03 hydromorphone Allergy Severe Anaphylaxis, Verified 12/10/24 18:03 ARM SWELLING lamotrigine Allergy Severe Hives / Verified 12/10/24 18:03 Red Face paroxetine Allergy Severe Anaphylaxis Verified 12/10/24 18:03 Penicillins Allergy Severe Anaphylaxis Verified 12/10/24 18:03 Sulfa (Sulfonamide Allergy Severe Rash Verified 12/10/24 18:03 Antibiotics) levofloxacin Allergy Mild swelling Verified 12/10/24 18:03 and black discoloration at IV site trimethoprim Allergy Unknown Rash Verified 12/10/24 18:03 Iodinated Contrast Media Allergy Anaphylaxis Verified 12/10/24 18:03 mirtazapine AdvReac Severe Nausea And Verified 12/10/24 18:03 Vomiting adhesive AdvReac Intermediate Rash Verified 12/10/24 18:03 azithromycin AdvReac Intermediate Palpitation Verified 12/10/24 18:03 s dapagliflozin (From [facility]) AdvReac Mild Nausea and Verified 12/10/24 18:03 Vomiting eggplant AdvReac Mild Rash Verified 12/10/24 18:03 prednisone AdvReac Unknown HEART BEAT Verified 12/10/24 18:03 RACING NSAIDS (Non-Steroidal AdvReac AVOIDS- Verified 12/10/24 18:03 Anti-Inflamma SEVERE KIDNEY DISEASE <Mallory Hawkins PA-C - Last Filed: 12/12/24 09:23> Review of Systems Review of Systems: All systems reviewed & are unremarkable except as noted in HPI and below <Mojgan Correa PA-C - Last Filed: 12/10/24 21:38> [facility] Past Medical History Medical History: Medical History Colon cancer screening Cataract Post-COVID chronic cough Dysfunctional gallbladder Gwen Rievra infection Chronic cholecystitis without calculus (~09/2022) PTSD (post-traumatic stress disorder) Aortic stenosis mild Essential (primary) hypertension Migraine without aura Recurrent genital herpes CKD (chronic kidney disease) stage 3, GFR 30-59 ml/min Psoriatic arthritis Lumbar spondylosis with myelopathy History of COVID-19 (~10/2020) 10/2020 Diverticulitis (~12/2019) Anxiety <Mallory Hawkins PA-C - Last Filed: 12/12/24 09:23> Surgical History Surgical History: Surgical History History of medial meniscus repair of left knee (~08/2021) 01/26 and 08/29 S/P laparoscopic cholecystectomy (~11/2022) 11/19/22 History of hysterectomy (~1987) Hx of tonsillectomy (~1952) <Mallory Hawkins PA-C - Last Filed: 12/12/24 09:23> Family History Family History: Family History Father Family history of lung cancer Patient's father is Mother Family history of lung cancer Patient's mother is Hypertension Depression Thyroid disease Sibling Family history of malignant neoplasm Asthma Other Bladder cancer Brain cancer Breast cancer Family history of alcoholism Family history of arthritis Family history of seizure disorder <Mallory Hawkins PA-C - Last Filed: 12/12/24 09:23> Social History Social History: Social History Social History: Caffeine-coffee daily Smoking status: Never smoker Second hand tobacco smoke exposure: Yes Alcohol intake: never Substance use: never Substance use type: does not use Do You Feel Safe in your Home?: Yes Lack of Transportation: No Lack of Food: Never True Current Housing: I Have Housing Concerned About Future Housing: No Difficulty Paying Gas/Electric Bills: No Difficulty Paying for Meds: No Currently Unemployed: No Education: Trade/Vocational Certificate Difficulty w/ Childcare or Family Care: No Living arrangements: with family Additional living arrangements comments: ADULT CHILD Occupation/Education: occupation Gender identity (if verbalized by the patient): Female Spiritual care concerns: No <Mallory Hawkins PA-C - Last Filed: 12/12/24 09:23> Exam Narrative: GENERAL: Well-appearing, well-nourished, and in no acute distress. HEAD: Normocephalic, atraumatic. EYES: EOMI. ENT: Nares clear, no rhinorrhea or epistaxis. Mucous membranes dry. NECK: Supple. CHEST: Clear to auscultation. No respiratory distress. HEART: Regular rate and rhythm. No murmur heard. Normal peripheral pulses. ABDOMEN: Hyperactive bowel sounds. Abdomen soft with diffuse tenderness, voluntary guarding in the lower quadrants. No rebound or rigidity. Negative heel tap. No CVA tenderness EXTREMITIES: Normal range of motion. No edema. SKIN: Warm, dry, no rash. NEURO: No focal deficits. 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 <Linda Downey MD - Last Filed: 12/11/24 02:45> Vital Signs Vital signs: Vital Signs Temperature 98.8 F 12/10/24 16:20 Pulse Rate 83 12/10/24 16:20 Respiratory Rate 18 12/10/24 16:20 Blood Pressure 93/57 L 12/10/24 16:20 Pulse Oximetry 95 12/10/24 16:20 Oxygen Delivery Room Air 12/10/24 16:20 Temperature 98.9 F 12/10/24 22:18 Pulse Rate 78 12/10/24 22:18 Respiratory Rate 16 12/10/24 22:18 Blood Pressure 108/45 L 12/10/24 22:18 Pulse Oximetry 97 12/10/24 22:18 Oxygen Delivery Room Air 12/10/24 16:20 <Mallory Hawkins PA-C - Last Filed: 12/12/24 09:23> Vital Signs Temperature 98.8 F 12/10/24 16:20 Pulse Rate 83 12/10/24 16:20 Respiratory Rate 18 12/10/24 16:20 Blood Pressure 93/57 L 12/10/24 16:20 Pulse Oximetry 95 12/10/24 16:20 Oxygen Delivery Room Air 12/10/24 16:20 Temperature 98.9 F 12/10/24 22:18 Pulse Rate 78 12/10/24 22:18 Respiratory Rate 16 12/10/24 22:18 Blood Pressure 108/45 L 12/10/24 22:18 Pulse Oximetry 97 12/10/24 22:18 Oxygen Delivery Room Air 12/10/24 16:20 <Mojgan Correa PA-C - Last Filed: 12/10/24 21:38> Vital Signs Temperature 98.8 F 12/10/24 16:20 Pulse Rate 83 12/10/24 16:20 Respiratory Rate 18 12/10/24 16:20 Blood Pressure 93/57 L 12/10/24 16:20 Pulse Oximetry 95 12/10/24 16:20 Oxygen Delivery Room Air 12/10/24 16:20 Temperature 98.9 F 12/10/24 22:18 Pulse Rate 78 12/10/24 22:18 Respiratory Rate 16 12/10/24 22:18 Blood Pressure 108/45 L 12/10/24 22:18 Pulse Oximetry 97 12/10/24 22:18 Oxygen Delivery Room Air 12/10/24 16:20 <Linda Downey MD - Last Filed: 12/11/24 02:45> MDM - Abdominal Pain MDM Narrative Medical decision making narrative: 74-year-old female presents emergency department for diffuse abdominal pain, abdominal distension, intermittent fevers that started 2 days ago. Triage vitals with soft blood pressures of 93/57. No tachycardia, patient is afebrile upon arrival. Patient does appear dry on exam, fluids initiated. CBC with leukocytosis of 15.7, no bandemia. No anemia. Chemistries with mild hyponatremia 132, creatinine is 1.79 BUN is 20. Per chart review patient's creatinine ranges anywhere between 1.4-2. UA with glucosuria, patient is on empagliflozin, no findings concerning for UTI. Lipase within normal limits. Lactic acid within normal limits. CT abdomen pelvis shows findings consistent with acute sigmoid diverticulitis without a drainable fluid collection or gross perforation. There is recommendations for follow-up to resolution as a malignancy may have a similar appearance. Patient and family were updated on results. Patient received a L of IV fluids and 50 mcg of fentanyl with improvement. Blood pressure has improved. She is not orthostatic. She is ambulatory in the ED without lightheadedness or dizziness. I did offer admission for IV fluids given blood pressures do remain slightly soft, however patient politely declines and states she feels fine and would like to be discharged home. She is tolerating p.o. intake. She is given a dose of ciprofloxacin (has tolerated this in the past) and Flagyl in the ED on these along with oxycodone sent pharmacy. Advised follow-up with her GI discussed strict ED return precautions. She and family are agreeable with the plan verbalized understanding. Discharged in stable condition. <Mojgan Correa PA-C - Last Filed: 12/10/24 21:38> Lab Data Result diagrams: 12/10/24 16:46 12/10/24 16:46 <Mallory Hawkins PA-C - Last Filed: 12/12/24 09:23> Labs: Lab Results 12/10/24 12/10/24 12/10/24 Range/Units 16:46 17:40 18:28 WBC 15.7 H (4.5-10.0) K/mm3 RBC 4.29 (4.2-5.4) M/mm3 Hgb 12.6 (12.0-15.0) g/dL Hct 38.6 (37.0-47.0) % MCV 90.0 (80-100) fl MCH 29.4 (26-34) pg MCHC 32.6 (32-36) g/dl RDW 13.6 (11.5-14.5) % Plt Count 194 (150-375) k/mm3 MPV 11.5 H (7.4-10.4) fl Immature Gran % (Auto) 0.9 H (0-0.5) % Neut % (Auto) 74.7 H (45.5-73.1) % Lymph % (Auto) 16.8 L (18.3-44.2) % Hubbard % (Auto) 7.0 (2.6-8.5) % Eos % (Auto) 0.3 (0-4.4) % Baso % (Auto) 0.3 (0.2-1.2) % Lymph # (Auto) 2.64 (0.9-3.2) K/mm3 Hubbard # (Auto) 1.1 H (0.1-0.6) K/mm3 Eos # (Auto) 0.1 (0-0.3) K/mm3 Baso # (Auto) 0.0 (0.0-0.1) K/mm3 Abs Immat Gran (auto) 0.14 H (0.00-0.031) K/mm3 Absolute Neuts (auto) 11.7 H (1.3-6.7) K/mm3 Absolute Nucleated RBC 0.000 (0.0-0.012) K/mm3 Nucleated RBC % 0.0 (0.0-0.2) % Sodium 132 L (137-145) mmol/L Potassium 4.1 (3.4-5.0) mmol/L Chloride 102 (98-107) mmol/L Carbon Dioxide 22 (22-30) mmol/L Anion Gap 8 (4-12) mmol/L BUN 20 H (7-17) mg/dL Creatinine 1.79 H (0.7-1.0) mg/dL Estim Creat Clear Calc 22 ml/min Estimated GFR 28 L (59 - ) Glucose 139 H (65-110) mg/dL Lactic Acid 1.0 (0.7-2.0) mmol/L Calcium 8.7 (8.4-10.2) mg/dL Total Bilirubin 0.8 (0.2-1.3) mg/dL AST 22 (14-36) U/L ALT 26 (6-35) U/L Alkaline Phosphatase 67 (38-126) U/L Total Protein 7.0 (6.3-8.2) g/dL Albumin 3.8 (3.5-5.1) g/dL Lipase 90 (23-300) U/L Urine Color Yellow (Yellow) Urine Appearance Clear (Clear) Urine pH 6.5 (5.0-9.0) Ur Specific [place] 1.010 (1.001-1.035) Urine Protein Negative (Negative) mg/dL Urine Glucose (UA) 3+ H (Negative) mg/dL Urine Ketones Negative (Negative) mg/dL Ur Blood (Man) Trace (Negative) Urine Nitrate Negative (Negative) Urine Bilirubin Negative (Negative) Urine Urobilinogen 0.2 (<2.0) mg/dL Leukocyte Esterase Rfl Negative (Negative) KARY/UL Urine RBC 0-2 (0-2) /hpf Urine WBC 0-5 (0-3) /hpf Ur Squamous Epith Cells None seen (Few) /hpf Urine Bacteria None seen /hpf Urine Casts 0-2 <Mallory Hawkins PA-C - Last Filed: 12/12/24 09:23> Lab Results 12/10/24 12/10/24 12/10/24 Range/Units 16:46 17:40 18:28 WBC 15.7 H (4.5-10.0) K/mm3 RBC 4.29 (4.2-5.4) M/mm3 Hgb 12.6 (12.0-15.0) g/dL Hct 38.6 (37.0-47.0) % MCV 90.0 (80-100) fl MCH 29.4 (26-34) pg MCHC 32.6 (32-36) g/dl RDW 13.6 (11.5-14.5) % Plt Count 194 (150-375) k/mm3 MPV 11.5 H (7.4-10.4) fl Immature Gran % (Auto) 0.9 H (0-0.5) % Neut % (Auto) 74.7 H (45.5-73.1) % Lymph % (Auto) 16.8 L (18.3-44.2) % Hubbard % (Auto) 7.0 (2.6-8.5) % Eos % (Auto) 0.3 (0-4.4) % Baso % (Auto) 0.3 (0.2-1.2) % Lymph # (Auto) 2.64 (0.9-3.2) K/mm3 Hubbard # (Auto) 1.1 H (0.1-0.6) K/mm3 Eos # (Auto) 0.1 (0-0.3) K/mm3 Baso # (Auto) 0.0 (0.0-0.1) K/mm3 Abs Immat Gran (auto) 0.14 H (0.00-0.031) K/mm3 Absolute Neuts (auto) 11.7 H (1.3-6.7) K/mm3 Absolute Nucleated RBC 0.000 (0.0-0.012) K/mm3 Nucleated RBC % 0.0 (0.0-0.2) % Sodium 132 L (137-145) mmol/L Potassium 4.1 (3.4-5.0) mmol/L Chloride 102 (98-107) mmol/L Carbon Dioxide 22 (22-30) mmol/L Anion Gap 8 (4-12) mmol/L BUN 20 H (7-17) mg/dL Creatinine 1.79 H (0.7-1.0) mg/dL Estim Creat Clear Calc 22 ml/min Estimated GFR 28 L (59 - ) Glucose 139 H (65-110) mg/dL Lactic Acid 1.0 (0.7-2.0) mmol/L Calcium 8.7 (8.4-10.2) mg/dL Total Bilirubin 0.8 (0.2-1.3) mg/dL AST 22 (14-36) U/L ALT 26 (6-35) U/L Alkaline Phosphatase 67 (38-126) U/L Total Protein 7.0 (6.3-8.2) g/dL Albumin 3.8 (3.5-5.1) g/dL Lipase 90 (23-300) U/L Urine Color Yellow (Yellow) Urine Appearance Clear (Clear) Urine pH 6.5 (5.0-9.0) Ur Specific [place] 1.010 (1.001-1.035) Urine Protein Negative (Negative) mg/dL Urine Glucose (UA) 3+ H (Negative) mg/dL Urine Ketones Negative (Negative) mg/dL Ur Blood (Man) Trace (Negative) Urine Nitrate Negative (Negative) Urine Bilirubin Negative (Negative) Urine Urobilinogen 0.2 (<2.0) mg/dL Leukocyte Esterase Rfl Negative (Negative) KARY/UL Urine RBC 0-2 (0-2) /hpf Urine WBC 0-5 (0-3) /hpf Ur Squamous Epith Cells None seen (Few) /hpf Urine Bacteria None seen /hpf Urine Casts 0-2 <Mojgan Correa PA-C - Last Filed: 12/10/24 21:38> Lab Results 12/10/24 12/10/24 12/10/24 Range/Units 16:46 17:40 18:28 WBC 15.7 H (4.5-10.0) K/mm3 RBC 4.29 (4.2-5.4) M/mm3 Hgb 12.6 (12.0-15.0) g/dL Hct 38.6 (37.0-47.0) % MCV 90.0 (80-100) fl MCH 29.4 (26-34) pg MCHC 32.6 (32-36) g/dl RDW 13.6 (11.5-14.5) % Plt Count 194 (150-375) k/mm3 MPV 11.5 H (7.4-10.4) fl Immature Gran % (Auto) 0.9 H (0-0.5) % Neut % (Auto) 74.7 H (45.5-73.1) % Lymph % (Auto) 16.8 L (18.3-44.2) % Hubbard % (Auto) 7.0 (2.6-8.5) % Eos % (Auto) 0.3 (0-4.4) % Baso % (Auto) 0.3 (0.2-1.2) % Lymph # (Auto) 2.64 (0.9-3.2) K/mm3 Hubbard # (Auto) 1.1 H (0.1-0.6) K/mm3 Eos # (Auto) 0.1 (0-0.3) K/mm3 Baso # (Auto) 0.0 (0.0-0.1) K/mm3 Abs Immat Gran (auto) 0.14 H (0.00-0.031) K/mm3 Absolute Neuts (auto) 11.7 H (1.3-6.7) K/mm3 Absolute Nucleated RBC 0.000 (0.0-0.012) K/mm3 Nucleated RBC % 0.0 (0.0-0.2) % Sodium 132 L (137-145) mmol/L Potassium 4.1 (3.4-5.0) mmol/L Chloride 102 (98-107) mmol/L Carbon Dioxide 22 (22-30) mmol/L Anion Gap 8 (4-12) mmol/L BUN 20 H (7-17) mg/dL Creatinine 1.79 H (0.7-1.0) mg/dL Estim Creat Clear Calc 22 ml/min Estimated GFR 28 L (59 - ) Glucose 139 H (65-110) mg/dL Lactic Acid 1.0 (0.7-2.0) mmol/L Calcium 8.7 (8.4-10.2) mg/dL Total Bilirubin 0.8 (0.2-1.3) mg/dL AST 22 (14-36) U/L ALT 26 (6-35) U/L Alkaline Phosphatase 67 (38-126) U/L Total Protein 7.0 (6.3-8.2) g/dL Albumin 3.8 (3.5-5.1) g/dL Lipase 90 (23-300) U/L Urine Color Yellow (Yellow) Urine Appearance Clear (Clear) Urine pH 6.5 (5.0-9.0) Ur Specific [place] 1.010 (1.001-1.035) Urine Protein Negative (Negative) mg/dL Urine Glucose (UA) 3+ H (Negative) mg/dL Urine Ketones Negative (Negative) mg/dL Ur Blood (Man) Trace (Negative) Urine Nitrate Negative (Negative) Urine Bilirubin Negative (Negative) Urine Urobilinogen 0.2 (<2.0) mg/dL Leukocyte Esterase Rfl Negative (Negative) KARY/UL Urine RBC 0-2 (0-2) /hpf Urine WBC 0-5 (0-3) /hpf Ur Squamous Epith Cells None seen (Few) /hpf Urine Bacteria None seen /hpf Urine Casts 0-2 <Linda Downey MD - Last Filed: 12/11/24 02:45> Imaging Data Radiologist's impression: ITS Impressions Abdomen/Pelvis CT 12/10/24 19:39 IMPRESSION: Findings consistent with acute sigmoid diverticulitis without a drainable fluid collection or gross perforation. Follow-up to resolution is recommended as a malignancy may have a similar appearance. <Mallory Hawkins PA-C - Last Filed: 12/12/24 09:23> ITS Impressions Abdomen/Pelvis CT 12/10/24 19:39 IMPRESSION: Findings consistent with acute sigmoid diverticulitis without a drainable fluid collection or gross perforation. Follow-up to resolution is recommended as a malignancy may have a similar appearance. <Mojgan Correa PA-C - Last Filed: 12/10/24 21:38> ITS Impressions Abdomen/Pelvis CT 12/10/24 19:39 IMPRESSION: Findings consistent with acute sigmoid diverticulitis without a drainable fluid collection or gross perforation. Follow-up to resolution is recommended as a malignancy may have a similar appearance. <Linda Downey MD - Last Filed: 12/11/24 02:45> Critical Care Time Critical Care Time Critical Care Time: No <Mallory Hawkins PA-C - Last Filed: 12/12/24 09:23> Discharge Plan Discharge Clinical Impression: Diverticulitis, Dehydration <JERMAINE River Last Filed: 12/12/24 09:23> Patient Disposition: Home <JERMAINE River Last Filed: 12/12/24 09:23> Condition: Stable <JERMAINE River Last Filed: 12/12/24 09:23> Instructions: Antibiotic Form, Diverticulitis (DC), Dehydration (DC) <Mallory Hawkins PA-C - Last Filed: 12/12/24 09:23> Additional Instructions: Your evaluated in the emergency department for abdominal pain. Your found have diverticulitis and were found to be dehydrated. He received IV fluids and pain medications with improvement. I did offer admission for pain medications and IV fluids however you would like to be discharged home. Please make sure to take the antibiotics as directed. Drink plenty fluids including water, Gatorade and Pedialyte with slow advancement to a bland diet. Follow-up with your GI provider. You will need a colonoscopy within the next couple of months for further evaluation. Return to the emergency department if you develop blood in her stool, dark tarry stools, lightheadedness, worsening pain, fever or other concerning symptoms. <Mallory Hawkins PA-C - Last Filed: 12/12/24 09:23> Patient Language: Slovenian <Mallory Hawkins PA-C - Last Filed: 12/12/24 09:23> Prescriptions: New ciprofloxacin HCl 500 mg tablet 500 mg PO Q12H Qty: 14 0RF metronidazole 500 mg tablet 500 mg PO Q12H Qty: 14 0RF oxycodone 5 mg capsule 5 mg PO Q8H PRN (Reason: pain) Qty: 14 0RF No Action aspirin 325 mg tablet,delayed release (DR/EC) 325 mg PO DAILY acyclovir 400 mg tablet 400 mg PO BID PRN famotidine 20 mg tablet 20 mg PO BID Qty: 60 12RF polyethylene glycol 3350 [Miralax] 17 gram powder in packet 17 g PO DAILY Qty: 30 11RF Metamucil 3.4 gram/5.4 gram powder 1 tbsp PO BID Qty: 660 11RF Rx Instructions: mix into at least 8 oz of water or juice before administering alprazolam 0.5 mg tablet 0.5 mg PO QID PRN (Reason: Anxiety) hydrocodone-acetaminophen 10-325 mg tablet 1 tablet PO Q6-8H PRN (Reason: Pain) sumatriptan succinate [Imitrex] 50 mg tablet See Rx Instructions PO .COMPLEX PRN (Reason: Migraine Headache) Rx Instructions: take 1 tab at onset of headache; if no relief may repeat 1 tab after at least 2 hrs; max = 4 tabs/24 hr PO metoprolol succinate 25 mg tablet extended release 24 hr 25 mg PO BID ondansetron 4 mg tablet,disintegrating 4 mg PO Q6-8H PRN (Reason: nausea and vomiting) Qty: 20 0RF losartan 25 mg tablet 25 mg PO DAILY Qty: 30 11RF cyclobenzaprine 5 mg tablet 5 mg PO TID PRN (Reason: muscle spasm) Qty: 270 0RF Jardiance 10 mg tablet 10 mg PO QAM Qty: 90 1RF dicyclomine 10 mg capsule 10 mg PO BID Qty: 60 6RF lidocaine 5 % gel See Rx Instructions .ROUTE .COMPLEX Qty: 30 0RF Rx Instructions: Apply a thin layer to affected area up to 6 times daily as needed for pain relief <Mallory Hawkins PA-C - Last Filed: 12/12/24 09:23> Follow-up/Referrals: Karen Vela MD [Primary Care Provider] - Elliott Candelaria MD [Physician] - <Mallory Hawkins PA-C - Last Filed: 12/12/24 09:23>
--- OUTSIDE RECORDS SUMMARY | 2024-12-10 16:42 | XMS_ITS | Referral Summary ---
Author Organization [facility] Building B Address [address] [place] [address] Care Team Providers Care Pecan Mallow Dipper Name Role Phone Augustin Goodson MD Unavailable [phone] Leon Oneill MD Unavailable [phone] Rick Rivas MD Unavailable Wilian Sultana MD Unavailable [phone] Renetta Sarabia MD Unavailable [phone] Sara Vela MD Primary Care Provider Prudence Gaines MD Unavailable [phone] Encounters Date Type Department Care Team Description 12/06/2024 Telephone [facility] [address] [facility] [facility] [address] [place] [address] Altagracia Laura MD PhD PMC Preprocedure 11/19/2024 Telephone [facility] [address] [facility] [address] [place] [address] Altagracia Laura MD PhD SPK W/NURSE 11/06/2024 10:00 AM CDT - 11/06/2024 11:59 PM CDT Hospital Encounter [facility] [place] [facility] [address] [facility] [address] [place] [address] Altagracia Laura MD PhD Complex regional pain syndrome type 2 of right upper extremity (Primary Dx); Ulnar neuropathy of right upper extremity; Neuropathic pain Discharge Disposition: Discharge to home or self care 10/30/2024 11:30 AM CDT Therapy [facility] Physical Therapy [address] [place] [address] 6th [place] [address] [place] [address] Aaliyah Koenig DPT 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) 10/23/2024 11:30 AM CDT Therapy [facility] Physical Therapy [address] [place] [address] 6th [place] [address] [place] [address] Aaliyah Koenig DPT 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) 10/16/2024 10:30 AM CDT Therapy [facility] Physical [address] [place] [address] [place] [address] Aaliyah Koenig DPT 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) 10/11/2024 1:00 PM INTERNET SPECIALIST Therapy [facility] Physical [address] 6th [place] [address] [place] [address] Aaliyah Koenig DPT 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) 10/04/2024 1:15 PM INTERNET SPECIALIST Office Visit [facility] Surgery [address] [place] [address] 6th [place] [address] [place] [address] Telma Frost MD 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) 10/02/2024 11:30 AM INTERNET SPECIALIST Therapy [facility] Physical Therapy [address] [place] [address] 6th [place] [address] [place] [address] Mimi Coelho DPT 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) 09/26/2024 Telephone [facility] Physical Therapy [address] [place] [address] 6th [place] [address] [place] [address] Aaliyah Koenig DPT patient question 09/17/2024 2:00 PM INTERNET SPECIALIST Therapy [facility] Physical Therapy [address] [place] [address] Medicine 6th [place] [address] [place] [address] Aaliyah Koenig, YADIELT 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) from Last 3 Months Allergies Active Allergy Reactions Criticality Noted Date Comments Adhesive Other (See comments),Rash High 08/31/2021 Says the EKG leads being left on her skin caused 3rd degree nova of the skin. Amitriptyline Other (See comments) 08/31/2021 [place] drugged up a lot and felt strange [...] ondansetron ODT (ZOFRAN-ODT) 4 mg disintegrating tablet 1 Active multivitamin with minerals tablet Take 1 tablet by mouth daily Active nitroglycerin (NITROSTAT) 0.4 mg SL tabletIndications: acute episode of anginal pain Place 1 tablet [...] metoprolol XL (TOPROL-XL) 25 mg extended release tabletIndications: Palpitations Take 1 tablet by mouth twice daily 180 tablet 2 4 Active albuterol HFA (PROVENTIL HFA,VENTOLIN HFA,PROAIR HFA) 90 mcg/actuation inhaler INHALE 1 PUFF BY MOUTH EVERY 4 HOURS NEEDED FOR SHORTNESS OF BREATH FOR WHEEZING Active dicyclomine (BENTYL) 10 mg capsule Take 1 capsule (10 mg total) by mouth 2 (two) times a day 5 Active Jardiance 10 mg tablet Take 1 tablet (10 mg total) by mouth every morning 5 Active famotidine (PEPCID) 20 mg tablet Take 1 tablet (20 mg total) by mouth 2 (two) times a day Active HYDROcodone-acetam inophen (NORCO) 10-325 mg per tablet Take 1 tablet by mouth [address] (CYMBALTA) 30 mg capsuleIndications :Neuropathic Pain Take 1 capsule (30 mg total) by mouth daily 90 capsule 3 5 11/07/19 26 Active Active Problems Problem Noted Date Diagnosed [...] 12/26/2018 Assessment & Plan (10/04/2018 9:33 PM INTERNET SPECIALIST): Rapid flu in office was negative as [...] on file Legal Sex Female 7:06 AM INTERNET SPECIALIST Gender Identity Female 06/12/2021 1:30 PM CDT [...] * COLONOSCOPY (03/19/2013 8:29 AM CDT) Pathologist [facility] Colonoscopy Normal Historical Provider HEALTH MAINTENANCE Final Result * DEXA SCAN (12/20/2008) DEXA Scan Unknown Historical Provider HEALTH MAINTENANCE Final Result from Last 3 Months or Most Recently Relevant to Health Maintenance Insurance [facility] [employer] OPEN ACCESS [facility] [employer] OPEN ACCESS [facility] [employer]LINK OPEN ACCESS Care Teams Pecan Mallow Dipper Relationship Specialty Start Date End Date Sara Vela MD [facility] 2 [place] [address] PCP - General Family Practice 02/27/24 Augustin Goodson MD Referring Physician Nephrology 03/07/18 Leon Oneill MD [address] [facility] 200 [place] [address] Referring Physician Hematology 03/07/18 Rick Rivas MD [address] [facility] 200 [place] [address] Referring Physician Rheumatology 03/07/18 Wilian Sultana MD 1 [facility] 3 [place] [address] Referring Physician Neurology 03/07/18 Renetta Sarabia MD 1 [facility] 3 [place] [address] Referring Physician Family Practice 12/27/19 Prudence Gaines MD [address] [facility] 22 [place] [address] Referring Physician Plastic Surgery 04/05/24
--- OUTSIDE RECORDS SUMMARY | 2024-12-10 16:42 | XMS_ITS | Encounter Summary ---
Author Organization [facility] Address [address] [facility] [address] [place] [address] Care Team Providers Care Verification Manager Name Role Phone Leon Chandler MD Primary Care Provider [phone] Leon Chandler MD Primary Care Provider [phone] Milly Celaya NP Primary Care Provider [phone] Augustin Goodson MD Unavailable [phone] Leon Oneill MD Unavailable Rick Rivas MD Unavailable Gin Toth MD Unavailable [phone] Wilian Sultana MD Unavailable [phone] No, Physician Primary Care Provider [phone] Renetta Sarabia MD Primary Care Provider [phone] Renetta Sarabia MD Unavailable [phone] Renetta Sarabia MD Primary Care Provider [phone] Sara Vela MD Primary Care Provider Prudence Gaines MD Unavailable [phone] Encounter Details Date Type Department Care Team (Late st Contact Info) Description 08/25/2016 Orders Only [facility] ProviderMitchell MD [address] [place] [address] Social History Tobacco Use Types Packs/Day Years Used Date Smoking Tobacco: Never Alcohol Use Standard Drinks/Week Comments No 0 (1 standard drink = 0.6 oz pur e alcohol) Comments Unknown Sex and Gender Information Value Date Recorded Sex Assigned at Not on file Legal Sex Female 7:06 AM LEASING DIRECTOR Gender Identity Female 06/12/2021 1:30 PM [...] on filedocumented in this encounter Care Teams Verification Manager Relationship Specialty Start Date End Date Leon Chandler MD PCP - General 11/05/16 03/06/18 Leon Chandler MD PCP - General 02/25/14 11/04/16 Milly Celaya NP [address] [place] [address] PCP - General Family Medicine 03/07/18 11/08/19 No, Physician PCP - General 11/09/19 12/26/19 Renetta Sarabia MD PCP - General Family Practice 12/27/19 12/27/19 Renetta Sarabia MD PCP - General Family Practice 01/03/20 09/21/21 Sara Vela MD [address] [facility] 2 [place] [address] PCP - General Family Practice 02/27/24 Augustin Goodson MD [address] [facility] 200 [place] [address] Referring Physician Nephrology 03/07/18 Leon Oneill MD [address] [facility] 200 [place] [address] Referring Physician Hematology 03/07/18 Rick Rivas MD [address] [facility] [address] [place] [address] Referring Physician Rheumatology 03/07/18 Gin Toth MD [address] [facility] [address] [place] [address] Consulting Physician Cardiology 03/07/18 02/26/24 Wilian Sultana MD 1 [facility] 3 [place] [address] Referring Physician Neurology 03/07/18 Renetta Sarabia MD Referring Physician Family Practice 12/27/19 Prudence Gaines MD [address] [facility] 22 [place] [address] Referring Physician Plastic Surgery 04/05/24 documented as of this encounter
--- OUTSIDE RECORDS SUMMARY | 2024-12-10 16:42 | XMS_ITS | Encounter Summary ---
Author Organization [facility] Address [address] [facility] [place] [address] Phone Care Team Providers Care Eeg Tech Name Role Phone Wilian Sultana MD Unavailable Darnell Bryant MD Unavailable Milly Celaya APRN, GEOPHYSICS PROFESSOR Primary Care Provider Unavailable Encounter Details Date Type Department Care Team (Late st Contact Info) Description 02/02/2024 Behavioral Health [facility] 1 [place] [address] Justyn Miranda, COMMERCIAL MARKETING SPECIALIST [address] [place] [address] Social History Tobacco Use Types Packs/Day Years [...] Care Team (Late st Contact Info) Description 12/20/2024 9:30 AM CDT [facility] 1 [place] [address] Justyn Miranda LCSW [address] [place] [address] Discharge Disposition: Discharged to home or Selfcare documented as of this encounter Goals Goal Patient Goal Type Associated Problems Recent Progress Patient-Stated? Author I need to be able to cope better with my grief and bitterness towards my family within the next six months Behavioral Health On track(2024 1:34 PM CDT) Yes Justyn Miranda LCSW Note: [...] month Behavioral Health Behavioral Health On track(2024 1:34 PM CDT) No Justyn Miranda LCSW Note: [...] documented as of this encounter Care Teams Eeg Tech Relationship Specialty Start Date End Date Milly Celaya, STUDENT LIFE COORDINATOR, GEOPHYSICS PROFESSOR [place] [address] PCP - General Obstetrics & Gynecology 05/23/18 Wilian Sultana MD Consulting Physician Neurology 08/11/16 06/24/24 Darnell Bryant MD [address] [place] [address] Psychiatry 03/16/18 documented as of this encounter
--- OUTSIDE RECORDS SUMMARY | 2024-12-10 16:42 | XMS_ITS | Encounter Summary ---
Author Organization [facility] Address [address] [facility] [place] [address] Phone Care Team Providers Care Supervisor Beet End Name Role Phone Wilian Sultana MD Unavailable Darnell Bryant MD Unavailable Milly Celaya APRN, ACCOUNT AUDITOR Primary Care Provider Unavailable Encounter Details Date Type Department Care Team (Late st Contact Info) Description 05/22/2024 Behavioral [facility] 1 [place] [address] Justyn Miranda, MILL OPERATOR HELPER [address] [place] [address] Social History Tobacco Use Types Packs/Day Years [...] Info) Description 12/20/2024 9:30 AM CDT [facility] 1 [place] [address] Justyn Miranda LCSW [address] [place] [address] Discharge Disposition: Discharged to home or Selfcare [...] documented as of this encounter Care Teams Supervisor Beet End Relationship Specialty Start Date End Date Milly Celaya, CASINO CASHIER, ACCOUNT AUDITOR [place] [address] PCP - General Obstetrics & Gynecology 05/23/18 Wilian Sultana MD Consulting Physician Neurology 08/11/16 06/24/24 Darnell Bryant MD [address] [place] [address] Psychiatry 03/16/18 documented as of this encounter
--- OUTSIDE RECORDS SUMMARY | 2024-12-10 16:42 | XMS_ITS | Encounter Summary ---
Author Organization [facility] Address [address] [place] [address] Care Team Providers Care Firer Kiln Name Role Phone Augustin Goodson MD Unavailable [phone] Leon Oneill MD Unavailable [phone] Rick Rivas MD Unavailable Wilian Sultana MD Unavailable [phone] Renetta Sarabia MD Unavailable [phone] Sara Vela MD Primary Care Provider Prudence Gaines MD Unavailable [phone] Reason for Visit * Reason Onset Date Comments SPK W/NURSE 11/19/2024 Encounter Details Date Type Department Care Team (Late st Contact Info) Description 11/19/2024 Telephone [facility] at the [place] [facility] [address] [facility] [address] [place], [place] [id number] Altagracia Laura MD PhD [address] [facility] [phone] [place] [address] SPK W/NURSE Social History Tobacco Use Types [...] on file Legal Sex Female 7:06 AM HOSE OPERATOR Gender Identity Female 06/12/2021 1:30 PM [...] on filedocumented in this encounter Care Teams Firer Kiln Relationship Specialty Start Date End Date Sara Vela MD [address] [facility] [address] [place] [address] PCP - General Family Practice 02/27/24 Augustin Goodson MD Referring Physician Nephrology 03/07/18 Leon Oneill MD [address] [place] [address] Referring Physician Hematology 03/07/18 Rick Rivas MD [address] [place] [address] Referring Physician Rheumatology 03/07/18 Wilian Sultana MD 1 [facility] [address] [place] [address] Referring Physician Neurology 03/07/18 Renetta Sarabia MD [address] [facility] [address] [place] [address] Referring Physician Family Practice 12/27/19 Prudence Gaines MD [address] [facility] 22 [place] [address] Referring Physician Plastic Surgery 04/05/24 documented as of this encounter
--- OUTSIDE RECORDS SUMMARY | 2024-12-10 16:42 | XMS_ITS | Encounter Summary ---
Author Organization [facility] Address [address] [facility] [place] [address] Phone Care Team Providers Care Asphalt Tar And Gravel Roofer Name Role Phone Wilian Sultana MD Unavailable Darnell Bryant MD Unavailable Milly Celaya APRN, WEAVING MACHINE OPERATOR Primary Care Provider Unavailable Encounter Details Date Type Department Care Team (Late st Contact Info) Description 10/04/2023 Behavior[facility] 1 [place] [address] Justyn Miranda, CARPENTER HELPER MAINTENANCE #1 [place] [address] Social History Tobacco Use Types Packs/Day Years [...] Info) Description 12/20/2024 9:30 AM CDT [facility] 1 [place] [address] Justyn Miranda LCSW [address]1 [place] [address] Discharge Disposition: Discharged to home or Selfcare [...] to change Department associated with goal: [facility] Steps to achieve [...] to change Department associated with goal: [facility] Steps to achieve [...] documented as of this encounter Care Teams Asphalt Tar And Gravel Roofer Relationship Specialty Start Date End Date Milly Celaya, BIOMASS PLANT MANAGER, WEAVING MACHINE OPERATOR [facility] [place] [address] PCP - General Obstetrics & Gynecology 05/23/18 Wilian Sultana MD Consulting Physician Neurology 08/11/16 06/24/24 Darnell Bryant MD [address] [place] [address] Psychiatry 03/16/18 documented as of this encounter
--- OUTSIDE RECORDS SUMMARY | 2024-12-10 16:42 | XMS_ITS | Encounter Summary ---
Author Organization [facility] Address [address] [facility] [place] [address] Phone Care Team Providers Care Director Paid Media Name Role Phone Wilian Sultana MD Unavailable Darnell Bryant MD Unavailable Milly Celaya APRN, TRANSFORMER MECHANIC Primary Care Provider Unavailable Encounter Details Date Type Department Care Team (Late st Contact Info) Description 04/05/2024 Behavioral [facility] 1 [place] [address] Justyn Miranda, WEB CONTENT EXECUTIVE [address] [place] [address] Social History Tobacco Use Types Packs/Day Years [...] Info) Description 12/20/2024 9:30 AM CDT [facility] 1 [place] [address] Justyn Miranda LCSW [address] [place] [address] Discharge Disposition: Discharged to home or Selfcare [...] Ready to change Department associated with goal: [facility] Steps [...] Ready to change Department associated with goal: [facility] Steps [...] documented as of this encounter Care Teams Director Paid Media Relationship Specialty Start Date End Date Milly Celaya, ACTUARIAL DIRECTOR, TRANSFORMER MECHANIC [facility] [place] [address] PCP - General Obstetrics & Gynecology 05/23/18 Wilian Sultana MD Consulting Physician Neurology 08/11/16 06/24/24 Darnell Bryant MD [address] [address] Psychiatry 03/16/18 documented as of this encounter
--- OUTSIDE RECORDS SUMMARY | 2024-12-10 16:42 | XMS_ITS | Encounter Summary ---
Author Organization [facility] [employer] [facility] Address [address] [place] [address] Care Team Providers Care Mechanical Maintenance Technician Name Role Phone Renetta Sarabia MD Primary Care Provider Reason for Visit * Reason Onset Date Comments lab orders 07/13/2022 Encounter Details Date Type Department Care Team (Late st Contact Info) Description 07/13/2022 Telephone [facility] Oncology and Hematology - [place] [address] [place] [address] [address] [place] [address] Leon Oneill MD [address] [facility] [address] [place] [address] lab orders Social History Tobacco [...] Renetta Faith RN - 07/13/2022 10:28 AM FOOD PREPARATION KITCHEN AIDE No labs ordered for this patient at last visit. 1 year F/U. I pended CBC, CMP, Immunoglobulins. Please add any other orders needed. PREPARATION KITCHEN AIDE documented in this encounter Plan of Treatment Upcoming Encounters Date Type Department Care Team (Late st Contact Info) Description 07/22/2025 1:00 PM FOOD PREPARATION KITCHEN AIDE Office Visit [facility] Oncology and Hematology - [place] [address] [facility] 200 [place] [address] Leon Oneill MD [address] [facility] [address] [place] [address] documented as of this encounter Visit Diagnoses Diagnosis Hypogammaglobulinemia- Primary Hypogammaglobulinaemia, unspecified documented in this encounter Care Teams Mechanical Maintenance Technician Relationship Specialty Start Date End Date Renetta Sarabia MD PCP - General Family Practice 12/21/19 documented as of this encounter
--- OUTSIDE RECORDS SUMMARY | 2024-12-10 16:42 | XMS_ITS | Encounter Summary ---
Author Organization [facility] Address [address] [facility] [place] [address] Phone Care Team Providers Care Machine Sand Mixer Name Role Phone Wilian Sultana MD Unavailable Darnell Bryant MD Unavailable Milly Celaya APRN, HANDS HANGER Primary Care Provider Unavailable Encounter Details Date Type Department Care Team (Late st Contact Info) Description 03/05/2024 Behavioral Health [facility] 1 [place] [address] Justyn Miranda, PLASTERER SPOT [address] [place] [address] Social History Tobacco Use Types Packs/Day Years [...] Info) Description 12/20/2024 9:30 AM CDT [facility] 1 [place] [address] Justyn Miranda LCSW [address] [place] [address] Discharge Disposition: Discharged to home or Selfcare [...] Ready to change Department associated with goal: [facility] Steps to achieve goal: [...] Ready to change Department associated with goal: [facility] Steps to achieve goal: [...] as of this encounter Care Teams Machine Sand Mixer Relationship Specialty Start Date End Date Milly Celaya, ACCOUNT ANALYST, HANDS HANGER [facility] [place] [address] PCP - General Obstetrics & Gynecology 05/23/18 Wilian Sultana MD Consulting Physician Neurology 08/11/16 06/24/24 Darnell Bryant MD [address] [address] Psychiatry 03/16/18 documented as of this encounter
--- OUTSIDE RECORDS SUMMARY | 2024-12-10 16:42 | XMS_ITS | Clinical Summary ---
Author Organization [facility] Address [facility] [place] [address] Care Team Providers Care Transonic Engineer Name Role Phone Sara Vela MD Primary Care Provider Gin Toth MD Unavailable Unavailable Augustin Goodson MD Unavailable [phone] Darnell Bryant MD Unavailable [phone] Leon Oneill MD Unavailable [phone] Rick Rivas MD Unavailable Allergies Active Allergy Reactions Criticality Noted Date Comments Tape Rash,Other (see comment) High 08/31/2021 Says the EKG leads being left on her skin caused 3rd degree nova of the skin. Amitriptyline Other (see comment) 08/31/2021 [place] drugged up a lot and felt strange [...] Other (Age a round January 2021) had [place], HTN, poorly controlled diabetes, in sleep with IN. patient raised him when he was a [...] AM CDT Pulse 63 10/13/2021 11:17 AM CITY AUDITOR Temperature 36.4 C (97.6 F) 10/13/2021 11:17 AM CITY AUDITOR Respiratory Rate 18 10/13/2021 11:1 7 AM CITY AUDITOR Oxygen Saturation 99% 10/13/2021 11: 17 AM CITY AUDITOR Inhaled Oxygen Concentration - - Weight 71.1 [...] age to complete this topic Insurance [employer] OPEN ACCESS [facility] Care Teams Transonic Engineer Relationship Specialty Start Date End Date Sara Vela MD [address] [place] [address] PCP - General FAMILY PRACTICE 07/07/21 Gin Toth MD [address] [place] [address] CARDIOVASCULAR DISEASE 08/31/21 Augustin Goodson MD [address] [facility] [address] [place] [address] Referring Physician NEPHROLOGY 08/31/21 Darnell Bryant MD [facility] in Psychiatry [address] [facility] [address] Psychiatry 08/31/21 Leon Oneill MD [address] [facility] [address] [place] [address] HEMATOLOGY/ONCOLOGY 08/31/21 Rick Rivas MD [address] [place] [address] Referring Physician RHEUMATOLOGY 08/31/21
--- OUTSIDE RECORDS SUMMARY | 2024-12-10 16:42 | XMS_ITS | Clinical Summary ---
Author Organization [facility] utikylie Address [address] [place] [address] Phone Care Team Providers Care Rink Rat Name Role Phone Sara Vela MD Primary Care Provider Allergies Active Allergy Reactions Criticality Noted Date Comments Amitriptyline Other (see comments) 08/31/2021 [place] drugged up a lot and felt strange [...] MG tablet 1 prn 0 7 Active [place]-3 1000 MG capsule Take 1 capsule by [...] HERPES FLARE UP 1 Active nystatin (MYCOSTATIN) 689007 UNIT/ML suspension ADMININSTER (5ML) EVERY 6 HOURS 1/2 OF DOSE IN EACH SIDE OF THE MOUTH. 1 Active mirtazapine (REMERON) 15 MG tablet TAKE 1/2 (ONE-HALF) TABLET BY MOUTH TWICE DAILY 2 Active neomycin-polymy allie-hydrocortis one (CORTISPORIN) 3.5-47366-4 otic suspension INSTILL 4 DROPS INTO LEFT [...] on file Legal Sex Female 7:[address] [facility] Gender Identity Not on file [...] 2025 05/22/20 20 Insurance AETNA MEDICARE ADVANTAGE [place] [employer] Care Teams Rink Rat Relationship Specialty Start Date End Date Sara Vela MD [address] [place] [address] PCP - General Internal Medicine 08/24/21
--- OUTSIDE RECORDS SUMMARY | 2024-12-10 16:42 | XMS_ITS | Continuity of Care Document ---
Author Organization [facility] Address [address] [place] [address] [place] [address] Phone Care Team Providers Care Red Lead Burner Name Role Phone Marcus Redmond Unavailable Unavailable [...] Providers Copied on Encounter Office/outpat ient Visit, [facility], [address] [place] [address] [address], [place], [place], [id number], [place] tel:[phone] [facility] [place] No Information 9-201 0 Nyla Velazquez. [address] [place] , [address], [place], [place], [facility], . tel:[phone] Office/outpat ient Visit, [facility], [address] [place] [address] [address], [place], [place], [id number], [place] tel:[phone] [facility] [place] No Information 1-200 9 Hali Barahona. [address] [place] , [address], [place], [address], . tel:[phone] Office/outpat ient Visit, [facility], [address] [place] [address] [address], [place], [place], [id number], [place] tel:[phone] [facility] [place] No Information May-0 7-200 9 Lal Brooklyn. [address] , [address], [place], [facility], . tel:[phone] Office/outpat ient Visit, [facility], [address] [place] [address] [address], [place], [place], [id number], [place] tel:[phone] [facility] [place] No Information Apr-2 7-200 9 Trey Grimaldohil. [address], [place], [facility], . tel:[phone] [facility], [address] [place] [address] [address], [place], [place], [id number], tel:[phone] [facility] [place] No Information Nov-2 3-200 9 Hali Barahona. [address] , [address], [place], [facility], . tel:[phone] [facility], [address] [place] [address] [address], [place], [place], [id number], tel:[phone] [facility] [place] No Information Ish-2 0-200 9 Hall OD Darnell. [address] , [address], [place], [facility], [place]. tel:[phone] [facility], [address] [place] [address] [address], [place], [place], [id number], [place] tel:[phone] [facility] No Information Feb-2 8-200 7 Hall OD Darnell. [address] , [address], [place], [facility], . tel:[phone] Family History Family Member Type Diagnosis Age At Onset No Information Payers Payer name Insurance type Covered republican ID Authoriza tion(s) No Information Social History [...]
--- OUTSIDE RECORDS SUMMARY | 2024-12-10 16:42 | XMS_ITS | Clinical Summary ---
Author Organization [facility] S[facility] Address [address] [place] [address] Care Team Providers Care Combatant Swimmer Name Role Phone Sara Vela MD Primary Care Provider Source Comments [facility],non-owned Affiliates and Associated Physician Practices is amultiple site organization consisting of ambulatory clinics and hospital sitesin [place], [place], [place] and [place]. This disclosure is being madepursuant to the Care Everywhere program and may not contain all information available regarding this patient. Last updated 18.[facility] Allergies Active Allergy Reactions Criticality Noted Date [...] on file Legal Sex Female 1:35 PM WEIR FISHERMAN Gender Identity Not on file Sexual Orientation Not on file Last Filed Vital Signs Vital Sign Reading Time Taken Comments Blood Pressure 112/62 06/23/2017 4:02 PM WEIR FISHERMAN Pulse 55 06/23/2017 4:02 PM WEIR FISHERMAN Temperature 36.8 C (98.2 F) 06/23/2017 4:02 PM WEIR FISHERMAN Respiratory Rate 16 06/23/2017 4:02 PM WEIR FISHERMAN Oxygen Saturation - - Inhaled Oxygen Concentration - - Weight 67.1 kg (148 lb) 06/23/2017 4:02 PM WEIR FISHERMAN Height 157.5 cm (5' 2 ) 06/23/2017 4:02 PM WEIR FISHERMAN Body Mass Index 27.07 06/23/2017 4:02 PM WEIR FISHERMAN Plan of Treatment Health Maintenance Due Date [...] AETNA MEDICARE ADV [employer] AETNA MEDICARE ADV [employer] AETNA MEDICARE ADV Care Teams Combatant Swimmer Relationship Specialty Start Date End Date Sara Vela MD [address] [place] [address] PCP - General 12/06/22
--- OUTSIDE RECORDS SUMMARY | 2024-12-10 16:42 | XMS_ITS | Encounter Summary ---
Author Organization [facility] Address [address] [facility] [place] [address] Phone Care Team Providers Care Breeding Technician Name Role Phone Wilian Sultana MD Unavailable Darnell Bryant MD Unavailable Milly Celaya APRN, PHOTOTYPESETTING EQUIPMENT MONITOR Primary Care Provider Unavailable Encounter Details Date Type Department Care Team (Late st Contact Info) Description 12/20/2023 Behavior[facility] [address] [place] [address] Justyn Miranda, SUPPORT CLERK [address] [place] [address] Social History Tobacco Use Types Packs/Day Years [...] 12/20/2024 9:30 AM CDT [facility]icine [facility] [address] [place] [address] Justyn Miranda LCSW [address] [place] [address] Discharge Disposition: Discharged to home or Selfcare [...] documented as of this encounter Care Teams Breeding Technician Relationship Specialty Start Date End Date Milly Celaya, RAP ARTIST, PHOTOTYPESETTING EQUIPMENT MONITOR [place] [address] PCP - General Obstetrics & Gynecology 05/23/18 Wilian Sultana MD Consulting Physician Neurology 08/11/16 06/24/24 Darnell Bryant MD [address] [place] [address] Psychiatry 03/16/18 documented as of this encounter
--- OUTSIDE RECORDS SUMMARY | 2024-12-10 16:42 | XMS_ITS | Data Portability ---
Author [facility] Address [address] [place] [address] Assessment No assessment recorded. Plan of Treatment Reminders Order Date Submit Date Provider Last Modified By Organization Details Last Modified Time Details Appointments None recorded. Lab SARS CoV 2 RNA (COVID-19), QL, mental tester-PCR, respiratory specimen - [place], [facility] 2019 020 njeffries 9 [facility] (Lab), [address] [place], [address], 0 16:32:53 Referral None recorded. Procedures None recorded. Surgeries None recorded. Imaging None recorded. Medication Orders None recorded. Patient TargetsNo targets recorded. Patient Instructions Encounter Date Encounter Id Patient Instructions Last Modified By Organization Details Last Modified Time 12/17/2019 [id number] Reviewed the following recommendations: -Stay home and [...] SNOMED-CT Code Diagnosis ICD10 Code Diagnosis Note [id number] MD Cristian Mcdonald [address] [place] [address] 12/17/2019 16:27:38 12/18/2019 08:40:26 Cough [id number] R05 Health Concerns Section Related Observation LastModified by Organization Detai ls LastModified Time None Recorded Concern Status LastModified by Organization Details LastModified Time None Recorded Advance Directives Directive None Recorded Payers Encounter Date Sequence Insurance Name Policy Number Policy Omer Covered Member ID Omer Member ID Guarantor Name 12/17/2019 1 [place] Kemi Espinosa [id number] Kemi Espinosa Notes Date Note Type [...] tested MADIE MATTHEW NP Attn: Accounting,[address] [place], [address], [facility] 12/17/2019 16:33:18 OBGyn Episode No OBEpisode recorded.
--- OUTSIDE RECORDS SUMMARY | 2024-12-10 16:42 | XMS_ITS | Encounter Summary ---
Author Organization [facility] Address [address] [facility] [place] [address] Phone Care Team Providers Care Fish Hatchery Assistant Name Role Phone Darnell Bryant MD Unavailable Milly Celaya APRN, CROP PICKER Primary Care Provider Unavailable Encounter Details Date Type Department Care Team (Late st Contact Info) Description 12/05/2024 [facility] [address] [place] [address] Justyn Miranda, SCIENTIFIC PROGRAMMER ANALYST [address] [place] [address] Social History Tobacco Use Types Packs/Day Years [...] Info) Description 12/20/2024 9:30 AM CDT [facility] [address] [place] [address] Justyn Miranda, SCIENTIFIC PROGRAMMER ANALYST [address] [place] [address] Discharge Disposition: Discharged to home or Selfcare [...] On track(2024 1:34 PM CDT) No Justyn Miranda, CHRISTIANO Note: [...] documented as of this encounter Care Teams Fish Hatchery Assistant Relationship Specialty Start Date End Date Milly Celaya, [place] HRMS DEVELOPER, CROP PICKER [address] [place] [address] PCP - General Obstetrics & Gynecology 05/23/18 Darnell Bryant MD [address] [place] [address] Psychiatry 03/16/18 documented as of this encounter
--- OUTSIDE RECORDS SUMMARY | 2024-12-10 16:42 | XMS_ITS | Encounter Summary ---
Author Organization [facility] Address [address] [place] [address] Care Team Providers Care Hand Tile Maker Name Role Phone Sara Vela MD Primary Care Provider Gin Toth MD Unavailable Unavailable Augustin Goodson MD Unavailable [phone] Darnell Bryant MD Unavailable [phone] Leon Oneill MD Unavailable Rick Rivas MD Unavailable Encounter Details Date Type Department Care Team (Late st Contact Info) Description 11/19/2021 MyChart Message Enc [facility] Orthopedic & Sports Medicine - [address] [address] Rudy Velasquez MD I need help please [...] on filedocumented in this encounter Care Teams Hand Tile Maker Relationship Specialty Start Date End Date Sraa Vela MD [address] [place] [address] PCP - General FAMILY PRACTICE 07/07/21 Gin Toth MD [address] [place] [address] CARDIOVASCULAR DISEASE 08/31/21 Augustin Goodson MD [address] [facility] [address] [place] [address] Referring Physician NEPHROLOGY 08/31/21 Darnell Bryant MD [facility] in Psychiatry [address] [facility] [place] [address] Psychiatry 08/31/21 Leon Oneill MD [address] [facility] [address] [place] [address] HEMATOLOGY/ONCOLOGY 08/31/21 Rick Rivas MD [address] [place] [address] Referring Physician RHEUMATOLOGY 08/31/21 documented as of this encounter
--- OUTSIDE RECORDS SUMMARY | 2024-12-10 16:42 | XMS_ITS | CONTINUITY OF CARE DOCUMENT ---
Author Name dinorah copeland Address Unknown Organization [facility] Address [address] [facility] [address] [place] [address] Phone [phone] Care Team Providers Care Medical Screener Name Role Phone Gregorio Parra MD Unavailable [...] In-person encounter Office Visit Greg[facility] VITAL SIGNS Date Observation Value Provider [...] Interpretation Location 1 calcium, serum 10.1 mg/dL [facility] 1 blood glucose, fasting 122 mg/dL [facility] 1 creatinine, serum 1.28 mg/dL [facility] 1 urea nitrogen, blood 16 mg/dL [facility] 1 carbon dioxide, serum, total 26.3 mmol/L [facility] 1 chloride, serum 107 mmol/L [facility] 1 potassium, serum 4.1 mmol/L [facility] 1 sodium, serum 141 mmol/L [facility] HISTORY OF MEDICATION USE Medication Status Instructions [...] Payer name Policy type / Coverage type [place]erk[place]oven red green party ID [place] MED[place] Medicare [id number] TREATMENT PLAN Date Name Performer FU test [...]
--- OUTSIDE RECORDS SUMMARY | 2024-12-10 16:42 | XMS_ITS | Clinical Summary ---
Author Organization [facility] Address [address] [facility] [place] [address] Phone Care Team Providers Care Health And Human Performance Professor Name Role Phone Darnell Bryant MD Unavailable Milly Celaya APRN, SOFTWARE ENGINEER WEB APPLICATIONS Primary Care Provider Unavailable Allergies Active Allergy [...] Encounters Date Type Department Care Team Description 12/05/2024 1:00 PM CDT Telemedicine [facility] [address] [place] [address] Justyn Miranda LCSW Generalized anxiety disorder (Primary Dx); Panic disorder; Adjustment disorder with mixed anxiety and depressed mood Discharge Disposition: Discharged to home or Selfcare 12/05/2024 [facility] [address] [place] [address] Justyn Miranda LCSW 12/05/2024 Travel 11/22/2024 12:00 PM CDT Telemedicine [facility] [address] [place] [address] Justyn Miranda LCSW Generalized anxiety disorder (Primary Dx); Panic disorder; Adjustment disorder with mixed anxiety and depressed mood Discharge Disposition: Discharged to home or Selfcare 11/21/2024 Travel 11/08/2024 9:30 AM CDT Telemedicine [facility] [address] [place] [address] Justyn Miranda LCSW Generalized anxiety disorder (Primary Dx); Panic disorder; Adjustment disorder with mixed anxiety and depressed mood Discharge Disposition: Discharged to home or Selfcare 11/08/2024 Travel 10/25/2024 11:30 AM CDT Telemedicine [facility] [address] [place] [address] Justyn Miranda LCSW Generalized anxiety disorder (Primary Dx); Panic disorder; Adjustment disorder with mixed anxiety and depressed mood Discharge Disposition: Discharged to home or Selfcare 10/25/2024 Travel 10/09/2024 9:30 AM BIAS CUTTING MACHINE OPERATOR VERTICAL [facility] [address] [place] [address] Justyn Miranda LCSW Generalized anxiety disorder (Primary Dx); Panic disorder; Adjustment disorder with mixed anxiety and depressed mood Discharge Disposition: Discharged to home or Selfcare 10/09/2024 Travel 09/19/2024 9:30 AM BIAS CUTTING MACHINE OPERATOR VERTICAL Telemedicine [facility] [address] [place] [address] Justyn Miranda LCSW Generalized anxiety disorder (Primary Dx); Panic disorder; Adjustment disorder with mixed anxiety and depressed mood Discharge Disposition: Discharged to home or Selfcare 09/19/2024 Behavioral Health [facility] [address] [place] [address] Justyn Miranda LCSW 09/19/2024 Travel from Last [...] Info) Description 12/20/2024 9:30 AM CDT Telemedicine [facility] [address] [place] [address] Justyn Miranda, SCRATCH BRUSHER [address] [place] [address] Discharge Disposition: Discharged to home or Selfcare Health Maintenance Due Date Last Done Comments DEXA Bone Density 1950 Hepatitis C Virus (HCV) Screening 1950 Zoster Immunization (1 of 2) 1998 Respiratory Syncytial Virus (RSV) Immunization (Adult) (1 - 1-dose 75+ series) 2023 SARS-COV-2 Immunization ( season) 2024 01/26/2022, 07/08/2021 Pneumococcal Immunization (50+ years) Completed 03/01/2023, 09/08/2020, 07/17/2020 Pneumococcal Immunization Combined Discontinued 03/01/2023, 09/08/2020, 07/17/2020 DTaP/Tdap/Td Immunization Discontinued 06/15/2023 TdaP Immunization Completed 06/15/2023 Influenza Immunization Completed 4, 06/15/2023, 05/13/2022, Additional history exists Hepatitis B [...] Ready to change Department associated with goal: [facility] Steps [...] Ready to change Department associated with goal: [facility] Steps to achieve goal: Patient counseled on coping with depression, including healthy leisure interests, seeking emotional support Patient counseled on healthy communication skills/setting healthy boundaries/expectations with family members Insurance MEDICARE C AETNA [address] [place] MEDICARE Care Teams Health And Human Performance Professor Relationship Specialty Start Date End Date Milly Celaya, CITY TREASURER, SOFTWARE ENGINEER WEB APPLICATIONS [address] [place] [address] PCP - General Obstetrics & Gynecology 05/23/18 [place] [address] Psychiatry 03/16/18
--- OUTSIDE RECORDS SUMMARY | 2024-12-10 16:42 | XMS_ITS | Data Portability ---
Author Organization [place] [facility], Main Office Address [address] [place] [address] Care Team Providers Care Production Stage Manager Name Role Phone NOLBERTO MAYA Primary Care Provider NOBLERTO MAYA Referring Provider [phone] Assessment Encounter Date Assessment Date Assessment LastModified [...] a dose pack 024 024 [id number] [facility] [id number] In [facility], [address] [place] [address], [address], 16:24:30 Patient TargetsNo targets recorded. Patient InstructionsNo [...] provi ders and patie nts at the [facility] te: https ://gl oalpo intof care. abbot t/en/ produ ct-de tails /id-n ow-co vid-1 9.htm l Metho dolog y: Isoth ermal Nucle ic Acid Ampli ficat ion Not Available [facility] (Lab) [address] [place], [address], 02/09/2021 14:48:57 02/04/20 21 01/28/2021 XR, knee, 3 view No observ ation record ed. [id number] Not Available 10/06/2022 06:05:32 02/05/20 21 XR, knee No observ ation record ed. [id number] [facility] [place] [address], [place], [address], 10/06/2022 06:05:32 02/06/20 21 MRI, knee, w/o contr ast [facility] [address] [place] [address] Patien t Name: STEPHANE BANKS Access ion #: [id number] Sex: F : 1950 7 Locati on: RA2 Attend ing Physic maximus: DEX LOVE Orderi ng Physic maximus: DEX LOVE Exam Date: 02/06/20 8:41 AM Exam [...] t Name: STEPHANE BANKS Access ion #: [id number] Sex: F : 1950 7 Exam Date: 02/06/20 8:41 AM Exam Name: MRI KNEE LT WO Admitt ing Diagno sis(es ): partia l tear. The pattern setter ior horn of the medial menisc us demons trates a comple x tear. The pattern setter ior horn of the medial menisc us is extrud ed in a medial direct ion. The latera l menisc us is intact . The pattern setter olater al corner struct ures are normal appear ing. The extens or mechan ism is intact . The overly ing muscul ature demons trates normal signal and morpho logy. IMPRES KAREN: Slate Cutter Operator ior horn medial menisc al tear. Modera te chondr omalac ia patell a. Small joint effusi on. Possib le partia l tear of the PCL. Create d and electr onical ly signed by: Narinder Tuttle ch, DO Signed Date: 02/06/20 9:53 AM (CT) Dictat ed by: Narinder Tuttle ch, DO (CT) (CT) Page 2 of 2 [id number] [facility] (Imaging) [address] [place], [address], 10/06/2022 06:05:32 12/29/19 24 XR, wrist No observ ation record ed. Not Available 2023 17:11:55 Result Notes None recorded. 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 Toth (cardiolo gy) Not Available [facility] 3 05:58:35 Scoliosis deformity of spine 690846165 Active 1997 Not Available [facility] 3 05:58:35 Diverticu litis 652018135 Active 2019 Not Available [facility] 3 05:58:35 Panic disorder 509241700 Active 1979 Not Available [facility] 3 05:58:35 Arthritis 6131570 Active 2015 Worse back Not Available [facility] 3 05:58:36 Psoriasis 9603771 Active 1999 Not Available [facility] 3 05:58:36 Kidney disease 61265470 Active 1999 stage 2- 42%. Dr. Augustin Zuluaga (nephrolo gy) Not Available [facility] 3 05:58:36 Pain of right wrist 20995033601 9100 Active 2023 Nalini Hunter [facility], [place] [email or web address] [facility] 4 15:47:43 Contusion of right wrist 55470319380 186395 Active 2023 OUMOU Ramon [address] [facility], [place] [address], [place], [address] , [employer] [address] [employer] 4 17:07:11 Sprain of right wrist 26816226079 418660 Active 2023 OUMOU Ramon [address] [facility], [place] [address], [place], [address] , [employer] [facility] 4 17:07:20 Problem Notes None recorded. Procedures Surgical History Date Name Laterality Status Provider Name and Address Organization Details Recorded Time 02/11/20 21 Knee arthroscopy/surg dayday completed Not Available [facility] 10/06/2022 05:53:40 Hysterectomy completed Not Available [facility] 10/06/2022 05:53:40 Foot Surgery completed Not Available [facility] 10/06/2022 05:53:40 Colonoscopy completed [facility] 01/05/2024 15:45:11 Endoscopy completed [facility] 01/05/2024 15:45:30 Cataract Surgery completed [facility] 01/05/2024 15:45:52 Eye Surgery completed [facility] 01/05/2024 15:46:18 Imaging Results Imaging Date Name Status LastModified by Organiz ation Details LastModified Time 02/04/2021 XR, knee completed [id number] [facility] [place] [address], [place], [address], 10/06/2022 06:05:32 01/28/2021 XR, knee, 3 view completed [id number] Information not available 10/06/2022 06:05:32 02/05/2021 MRI, knee, w/o contrast completed [id number] [facility] (Imaging) [address] [place], [address], 10/06/2022 06:05:32 12/29/2023 XR, wrist completed [email or web address] Information no t available 12/29/2023 17:11:55 Procedure Notes None recorded. Medical Equipment None Reported. Allergies Allergen ID Allergen Name Allergen Category Reaction Reaction Severity Criticality Documentation Date Start Date Code Code System Note Provider Name and Address Organization Details Recorded Time 60490 Substance with sulfonami de structure and antibacte rial mechanism of action (substanc e) medicatio n anaphylax is severe Not available 10/06/2022 39806 8003 SNOMED Not Available [facility] 3 06:05:19 59272 prednisol one medicatio n palpitati ons severe Not available 10/06/2022 8638 RxNorm Not Available [facility] 3 06:05:20 76004 Product containin g penicilli n (product) medicatio n rash severe Not available 10/06/2022 21519 8001 SNOMED Not Available [facility] 3 06:05:20 88717 Levaquin medicatio n anaphylax is severe Not available 10/06/2022 90035 2 RxNorm Not Available [facility] 3 06:05:20 63140 Dilaudid medicatio n anaphylax is severe Not available 10/06/2022 76111 3 RxNorm Not Available [facility] 3 06:05:20 77447 Bactrim medicatio n anaphylax is severe Not available 10/06/2022 85243 9 RxNorm Not Available [facility] 3 06:05:20 63010 cortisone medicatio n Not available Not available Not available 01/05/2024 2878 RxNorm injec NILSON A[place] [employer] 4 15:39:42 Medications Name Sig Start Date [...] Not Available No t Available Fluad Quad 6583-9620 (65yr up)(PF) 60 mcg (15 mcg x 4)/0.5mL IM syringe ADMINIST ER 0.7ML IN THE MUSCLE DIRECTED 08/21 completed Not Available Not Available Not Available Vitals Date Recorded Body height Provider Name an d Address Organization Details Last Updated DateTime 02/04/2021 157.48 cm Not Available [facility] 3 05:55:19 Date Recorded Body height Provider Name an d Address Organization Details Last Updated DateTime 02/05/2021 157.48 cm Not Available [facility] 3 05:55:20 Date Recorded Body height Provider Name an d Address Organization Details Last Updated DateTime 02/19/2021 157.48 cm Not Available [facility] 3 05:55:20 Date Recorded Body height Provider Name an d Address Organization Details Last Updated DateTime 03/12/2021 157.48 cm Not Available [facility] 3 05:55:20 Date Recorded Body height Body mass index (BMI) Body weight Provider Name and Address Organization Details Last Updated DateTime 01/05/2024 157.48 cm 27.4 kg/m2 56629.86 g Nalini Harrison [place] [facility] [place] [facility] 01/05/2024 15:37:50 Social History Question Answer Notes LastModified by Organizat ion Details LastModified Time Tobacco Smoking Status Never Smoker Not Available [facility] 10/06/2022 05:53:25 What Was The Date Of Your Most Recent Tobacco Screening? 10/15/2020 [id number] Information not available 10/06/2022 Sex: Unknown Functional Status None recorded. Mental Status None recorded. Family History Relationship Description Onset Age of this Age Resolved Age Notes LastModified by Organization Details LastModified Time Mother Complication of anesthesia [id number] Not available 10/06/2022 05:53:42 Mother Family history of malignant neoplasm [id number] Not available 10/06/2022 05:53:42 Father Family history of malignant neoplasm [id number] Not available 10/06/2022 05:53:42 Mother Heart disease [email or web address] Not available 2023 15:43:54 Mother Hypertensive disorder [email or web address] Not available 2023 15:44:28 Medical History Condition Response CARDIAC ARRHYTHMIA Y ARTHRITIS Y ULCERS Y ANEMIA/BLOOD DISORDER Y Blood Disorder Y SKIN PROBLEMS Y KIDNEY DISEASE Y HEART DISEASE/HEART PROBLEMS Y HEART ARRHYTHMIA Y HYPERTENSION Y Gynecological HistoryNo gynecological history recorded. Obstetrics History GPAL:G 0 P 0 0 0 0 Past Encounters Encounter ID Performer Location Encounter Start Date Encounter Closed Date Diagnosis/Indication Diagnosis SNOMED-CT Code Diagnosis ICD10 Code Diagnosis Note [id number] Dex Hua MD [facility] [place] [address] [facility] [address] [place] [address] 10/15/2020 00:00:00 11/02/2020 12:48:48 [id number] MD ABBIE Gaviria_Brenda [facility] [place] [address] [place] [address] 02/04/2021 00:00:00 02/05/2021 16:43:41 [id number] MD LISSETTE GaviriaBrenda [address] [address] 02/05/2021 00:00:00 02/05/2021 16:45:14 [id number] Dex Hua MD [facility] [address] [address] 02/19/2021 00:00:00 02/19/2021 15:11:41 [id number] Dex Hua MD [facility] [address] [address] 03/12/2021 00:00:00 03/12/2021 12:31:34 [id number] Kuldeep Tian MD [facility] [address] [facility] [address] [place] [address] 01/05/2024 14:17:53 01/05/2024 16:30:12 Pain of right wrist 4685257347 57432 M25.531 Sprain of right wrist 11 53409225 7561952 S63.501A Contusion of right wrist 6567592573 1010244 S60.211A Health Concerns Section Related Observation LastModified by Organization Detai ls LastModified Time None Recorded Concern Status LastModified by Organization Details LastModified Time None Recorded Advance Directives Directive None Recorded Payers Encounter Date Sequence Insurance Name Policy Number Policy Omer Covered Member ID Omer Member ID Guarantor Name 01/05/2024 2 [employer] (PPO) [id number] Kemi Banks [id number] Kemi Banks 01/05/2024 1 [employer] & SUPERVISOR SEWING DEPARTMENT [facility] - OPEN ACCESS III (PPO) Kemi Banks [id number] Kemi Banks Notes Date Note Type Note [...] to the emergency room that day to [facility] had x-rays performed. I have reviewed [...] of psoriatic osteoarthritis and has seen a community director for this chronically. She has had to [...] today with the patient. OUMOU Ramon [address] [facility] [address], [place], [address], [place] [facility] 01/05/2024 17:08:00 OBGyn Episode No OBEpisode recorded.
--- OUTSIDE RECORDS SUMMARY | 2024-12-10 16:42 | XMS_ITS | Encounter Summary ---
Author Organization [facility] Address [address] [place] [address] Care Team Providers Care Supervisor [place] Name Role Phone Sara Vela MD Primary Care Provider Gin Toth MD Unavailable Unavailable Augustin Goodson MD Unavailable [phone] Darnell Bryant MD Unavailable [phone] Leon Oneill MD Unavailable [phone] Rick Rivas MD Unavailable Encounter Details Date Type Department Care Team (Late st Contact Info) Description 01/26/2022 Unique Blog Designs Message [facility] Patient Accounts [address] [place] [address] [facility] Provider Payment Plan - Past due [...] on filedocumented in this encounter Care Teams Supervisor [place] Relationship Specialty Start Date End Date Sara Vela MD [address] [place] [address] PCP - General FAMILY PRACTICE 07/07/21 Gin Toth MD [address] [place] [address] CARDIOVASCULAR DISEASE 08/31/21 Augustin Goodson MD [address] [facility] [address] [place] [address] Referring Physician NEPHROLOGY 08/31/21 Darnell Bryant MD [facility] in Psychiatry [address] [facility] [place] [address] Psychiatry 08/31/21 Leon Oneill MD [address] [facility] [address] [place] [address] HEMATOLOGY/ONCOLOGY 08/31/21 Rick Rivas MD [address] [place] [address] Referring Physician RHEUMATOLOGY 08/31/21 documented as of this encounter
--- OUTSIDE RECORDS SUMMARY | 2024-12-10 16:42 | XMS_ITS | Encounter Summary ---
Author Organization [facility] Address [address] [facility] [place] [address] Phone Care Team Providers Care Granite Polisher Apprentice Name Role Phone Darnell Bryant MD Unavailable Milly Celaya APRN, DERMATOLOGY SALES REPRESENTATIVE Primary Care Provider Unavailable Encounter Details Date Type Department Care Team (Late st Contact Info) Description 08/06/2024 [facility] [address] [place] [address] Justyn Miranda, SCIENTIFIC DIRECTOR [address] [place] [address] Social History Tobacco Use Types Packs/Day Years [...] Info) Description 12/20/2024 9:30 AM CDT [facility] [address] [place] [address] Justyn Miranda, SCIENTIFIC DIRECTOR [address] [place] [address] Discharge Disposition: Discharged to home or Selfcare [...] documented as of this encounter Care Teams Granite Polisher Apprentice Relationship Specialty Start Date End Date Milly Celaya, INDUSTRIAL RELATIONS WORKER, DERMATOLOGY SALES REPRESENTATIVE [address] [place] [address] PCP - General Obstetrics & Gynecology 05/23/18 Darnell Bryant MD [address] [place] [address] Psychiatry 03/16/18 documented as of this encounter
--- OUTSIDE RECORDS SUMMARY | 2024-12-10 16:42 | XMS_ITS | Clinical Summary ---
Author Organization [facility] Medical Office Building B Address [address] [place] [address] Care Team Providers Care Log Raft Worker Name Role Phone Augustin Goodson MD Unavailable [phone] Leon Oneill MD Unavailable [phone] Rick Rivas MD Unavailable Wilian Sultana MD Unavailable Renetta Sarabia MD Unavailable [phone] Sara Vela MD Primary Care Provider Prudence Gaines MD Unavailable [phone] Allergies Active Allergy Reactions Criticality Noted Date Comments Adhesive Other (See comments),Rash High 08/31/2021 Says the EKG leads being left on her skin caused 3rd degree nova of the skin. Amitriptyline Other (See comments) 08/31/2021 [place] drugged up a lot and felt strange [...] 12/26/2018 Assessment & Plan (10/04/2018 9:33 PM SHOP TECHNICIAN): Rapid flu in office was negative as [...] Type Department Care Team Description 12/06/2024 Telephone [facility] [address] [place] [address] Advanced Medicine [address] [place] [address] Altagracia Laura MD PhD PMC Preprocedure 11/19/2024 Telephone [facility] [address] [place] [address] Advanced Medicine [address] [place] [address] Altagracia Laura MD PhD SPK W/NURSE 11/06/2024 10:00 AM CDT - 11/06/2024 11:59 PM CDT Hospital Encounter [facility] [address] [place] [address] Advanced Medicine [address] [place] [address] Altagracia Laura MD PhD Complex regional pain syndrome type 2 of right upper extremity (Primary Dx); Ulnar neuropathy of right upper extremity; Neuropathic pain Discharge Disposition: Discharge to home or self care 10/30/2024 11:30 AM CDT Therapy [facility] [address] [place] [address] 6th [place] [address] [place] [address] Aaliyah Koenig DPT 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) 10/23/2024 11:30 AM CDT Therapy [facility] [address] [place] [address] 6th [place] [address] [place] [address] Aaliyah Koenig DPT 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) 10/16/2024 10:30 AM CDT Therapy [facility] [address] [place] [address] 6th [place] [address] [place] [address] Aaliyah Koenig DPT 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) 10/11/2024 1:00 PM SHOP TECHNICIAN Therapy [facility] [address] [facility] 6th [place] [address] [place] [address] Aaliyah Koenig DPT 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) 10/04/2024 1:15 PM SHOP TECHNICIAN Office Visit [facility] [address] [facility] 6th [place] [address] [place] [address] Telma Frost MD 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) 10/02/2024 11:30 AM SHOP TECHNICIAN Therapy [facility] 6th [place] [address] [place] [address] Mimi Coelho DPT 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) 09/26/2024 Telephone [facility] 6th [place] [address] Aaliyah Koenig DPT patient question 09/17/2024 2:00 PM SHOP TECHNICIAN Therapy [facility] 6th [place] [address] [place] [address] Aaliyah Koenig DPT 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) from Last 3 Months Immunizations Immunization Administration Dates Next Due Influenza, Quad, Adjuvantated, Intramuscular Pneumococcal Conjugate PCV 13 07/17/2020 Surgical History Surgery Date Site/Laterality Comments CATARACT EXTRACTION HYSTERECTOMY Medical History Medical History Date Comments Hx Other Medical Parkinson's Dis ease ??? Hx Other Medical [place] Anxiety disorder Anxiety Hx Other Medical Back [...] on file Legal Sex Female 7:06 AM SHOP TECHNICIAN Gender Identity Female 06/12/2021 1:30 PM CDT [...] Most Recently Relevant to Health Maintenance [facility] Smarty [employer] [facility] OPEN ACCESS [facility] OPEN ACCESS Care Teams Log Raft Worker Relationship Specialty Start Date End Date Sara Vela MD [facility] [place] [place] [address] [place] [address] PCP - General Family Practice 02/27/24 Augustin Goodson MD Referring Physician Nephrology 03/07/18 Leon Oneill MD [address] [place] [address] Referring Physician Hematology 03/07/18 Rick Rivas MD [address] [place] [address] Referring Physician Rheumatology 03/07/18 Wilian Sultana MD [address] [facility] 3 [place] [address] Referring Physician Neurology 03/07/18 Renetta Sarabia MD [address] [facility] 3 [place] [address] Referring Physician Family Practice 12/27/19 Prudence Gaines MD [address] [facility] [address] [place] [address] Referring Physician Plastic Surgery 04/05/24
--- OUTSIDE RECORDS SUMMARY | 2024-12-10 16:42 | XMS_ITS | Encounter Summary ---
Author Organization [facility] Address [address] [facility] [place] [address] Phone Care Team Providers Care Curatorial Specialist Name Role Phone Wilian Sultana MD Unavailable [phone] Darnell Bryant MD Unavailable Milly Celaya APRN, MEDIA SENIOR RECRUITER Primary Care Provider Unavailable Encounter Details Date Type Department Care Team (Late st Contact Info) Description 11/08/2023 Behavioral [facility] [address] [place] [address] Justyn Miranda, COMMERCIAL CREDIT HEAD [address] [place] [address] Social History Tobacco Use Types Packs/Day Years [...] Info) Description 12/20/2024 9:30 AM CDT [facility] [address] [place] [address] Justyn Miranda LCSW [address] [place] [address] Discharge Disposition: Discharged to home or Selfcare [...] Ready to change Department associated with goal: [facility] Steps to achieve goal: [...] Ready to change Department associated with goal: [facility] Steps to achieve goal: [...] documented as of this encounter Care Teams Curatorial Specialist Relationship Specialty Start Date End Date Milly Celaya, APN, MEDIA SENIOR RECRUITER [place] [address] PCP - General Obstetrics & Gynecology 05/23/18 Wilian Sultana MD Consulting Physician Neurology 08/11/16 06/24/24 Darnell Bryant MD [address] [place] [address] Psychiatry 03/16/18 documented as of this encounter
--- OUTSIDE RECORDS SUMMARY | 2024-12-10 16:42 | XMS_ITS | Encounter Summary ---
Author Organization [facility] Address [address] [place] [address] Phone Care Team Providers Care Mixer Pigment Name Role Phone Wilian Sultana MD Unavailable [phone] Darnell Bryant MD Unavailable Milly Celaya APRN, AVIATION BOATSWAIN'S MATE Primary Care Provider Unavailable Encounter Details Date Type Department Care Team (Late st Contact Info) Description 06/22/2024 [facility] [address] [place] [address] Justyn Miranda, COMPRESSOR BATTERY PELLETS [address] [place] [address] Social History Tobacco Use Types Packs/Day Years [...] Info) Description 12/20/2024 9:30 AM CDT [facility] [address] [place] [address] Justyn Miranda LCSW [address] [place] [address] Discharge Disposition: Discharged to home or Selfcare [...] Ready to change Department associated with goal: [facility] Steps to [...] Ready to change Department associated with goal: [facility] Steps to [...] documented as of this encounter Care Teams Mixer Pigment Relationship Specialty Start Date End Date Milly Celaya, PACK OPERATOR, AVIATION BOATSWAIN'S MATE [place] [address] PCP - General Obstetrics & Gynecology 05/23/18 Wilian Sultana MD Consulting Physician Neurology 08/11/16 06/24/24 Darnell Bryant MD [address] [place] [address] Psychiatry 03/16/18 documented as of this encounter
--- OUTSIDE RECORDS SUMMARY | 2024-12-10 16:43 | XMS_ITS | Encounter Summary ---
Author Organization [facility] Address [address] [facility] [place] [address] Phone Care Team Providers Care Auto Phone Installer Name Role Phone Wilian Sultana MD Unavailable [phone] Darnell Bryant MD Unavailable Milly Celaya APRN, REMOTELY PILOTED VEHICLE CONTROLLER Primary Care Provider Unavailable Encounter Details Date Type Department Care Team (Late st Contact Info) Description 02/02/2023 Behavioral Health [facility] Services 1 [place] [address] Justyn Miranda, [facility] [place] [address] Social History Tobacco Use Types Packs/Day Years [...] Info) Description 12/20/2024 9:30 AM CDT Telemedicine [facility] Health Services [address] [place] [address] Justyn Miranda LCSW [address] [place] [address] Discharge Disposition: Discharged to home or Selfcare [...] documented as of this encounter Care Teams Auto Phone Installer Relationship Specialty Start Date End Date Milly Celaya, CADDY PACKER, REMOTELY PILOTED VEHICLE CONTROLLER [address] [place] [address] PCP - General Obstetrics & Gynecology 05/23/18 Wilian Sultana MD Consulting Physician Neurology 08/11/16 06/24/24 Darnell Bryant MD [address] [place] [address] Psychiatry 03/16/18 documented as of this encounter
--- OUTSIDE RECORDS SUMMARY | 2024-12-10 16:43 | XMS_ITS | Encounter Summary ---
Author Organization [facility] Address [address] [facility] [place] [address] Phone Care Team Providers Care Heavy Equipment Mechanic Name Role Phone Wilian Sultana MD Unavailable Darnell Bryant MD Unavailable Milly Celaya APRN, SQUASH CENTRE MANAGER Primary Care Provider Unavailable Encounter Details Date Type Department Care Team (Late st Contact Info) Description 08/31/2023 [facility] 1 [place] [address] Justyn Miranda, MANAGER BRAND [address] [place] [address] Social History Tobacco Use Types Packs/Day Years [...] Info) Description 12/20/2024 9:30 AM CDT [facility] 1 [place] [address] Justyn Miranda LCSW [address]1 [place] [address] Discharge Disposition: Discharged to home or Selfcare [...] documented as of this encounter Care Teams Heavy Equipment Mechanic Relationship Specialty Start Date End Date Milly Celaya, PEANUT VENDOR, SQUASH CENTRE MANAGER [facility] [place] [address] PCP - General Obstetrics & Gynecology 05/23/18 Wilian Sultana MD Consulting Physician Neurology 08/11/16 06/24/24 Darnell Bryant MD [address] [place] [address] Psychiatry 03/16/18 documented as of this encounter
--- OUTSIDE RECORDS SUMMARY | 2024-12-10 16:43 | XMS_ITS | Encounter Summary ---
Author Organization [facility] Address [address] [facility] [address] Phone Care Team Providers Care Tuber Helper Name Role Phone Wilian Sultana MD Unavailable [phone] Darnell Bryant MD Unavailable Milly Celaya APRN, DICE SPOTTER Primary Care Provider Unavailable Encounter Details Date Type Department Care Team (Late st Contact Info) Description 03/11/2023 Behavioral Health [facility] Behavioral Health Services 1 [place] [address] Justyn Miranda, [facility] [place] [address] Social History Tobacco Use Types Packs/Day Years [...] Info) Description 12/20/2024 9:30 AM CDT Telemedicine [facility] Behavioral Health Services [address] [place] [address] Justyn Miranda LCSW [address] [place] [address] Discharge Disposition: Discharged to home or Selfcare [...] documented as of this encounter Care Teams Tuber Helper Relationship Specialty Start Date End Date Milly Celaya, SCHOOL SECRETARY, DICE SPOTTER [address] [place] [address] PCP - General Obstetrics & Gynecology 05/23/18 Wilian Sultana MD Consulting Physician Neurology 08/11/16 06/24/24 Darnell Bryant MD [address] [place] [address] Psychiatry 03/16/18 documented as of this encounter
--- OUTSIDE RECORDS SUMMARY | 2024-12-10 16:43 | XMS_ITS | Clinical Summary ---
Author Organization [facility] Address [address] [facility] [place] [address] Care Team Providers Care Soil Tester Name Role Phone Renetta Sarabia MD Primary [...] tongue Continuous as needed. 09/29/19 19 Active Elsie-3 Fatty Acids 1,000 mg Capsule Take 1 [...] by mouth. Active naloxone (NARCAN) 4 mg/spray [place], Non-Aerosol EMERGENCY USE ONLY: Administer 1 spray [...] Comments Blood Pressure 121/77 07/19/2024 3:24 PM PASSENGER BARGE MASTER Pulse 75 07/19/2024 3:24 PM PASSENGER BARGE MASTER Temperature 36.1 C (97 F) 07/19/2024 3:24 PM PASSENGER BARGE MASTER Respiratory Rate 16 07/19/2024 3:24 PM PASSENGER BARGE MASTER Oxygen Saturation 96% 07/19/2024 3:24 PM PASSENGER BARGE MASTER Inhaled Oxygen Concentration - - Weight 70.8 kg (156 lb) 07/19/2024 3:24 PM PASSENGER BARGE MASTER Height 167.6 cm (5' 6 ) 07/08/2021 9:25 AM PASSENGER BARGE MASTER Body Mass Index 25.18 07/08/2021 9:25 AM PASSENGER BARGE MASTER Plan of Treatment Upcoming Encounters Date Type Department Care Team (Late st Contact Info) Description 07/22/2025 1:00 PM PASSENGER BARGE MASTER Office Visit [facility] Oncology and Hematology - [place] [address] [place] [address] Leon Oneill MD [address] [facility] [address] [place] [address] Health Maintenance Due Date Last Done Comments DTAP/TDAP/TD VACCINES (1 - Tdap) 1969 ZOSTER VACCINE (1 of 2) 1969 PNEUMOCOCCAL VACCINE 50+ YEA RS (2 of 2 - PPSV23) 11/03/2020 09/08/2020, 07/17/2020 OSTEOPOROSIS SCREENING 11/18/2021 11/18/2016 RSV VACCINE (60+ or ) (1 - 1-dose 75+ series) 2023 INFLUENZA VACCINE (#1) 2024 05/22/2020 Preventative Visit- Commercial 08/08/2024 Insurance Virdia PPO Virdia PPO Care Teams Soil Tester Relationship Specialty Start Date End Date Renetta Sarabia MD PCP - General Family Practice 12/21/19
--- OUTSIDE RECORDS SUMMARY | 2024-12-10 16:43 | XMS_ITS | Encounter Summary ---
Author Organization [facility] Address [address] [place] [address] [facility] [place] [address] Phone Care Team Providers Care Surgery Technician Name Role Phone Wilian Sultana MD Unavailable Darnell Bryant MD Unavailable Milly Celaya APRN, SALES ACCOUNT MANAGER Primary Care Provider Unavailable Encounter Details Date Type Department Care Team (Late st Contact Info) Description 05/25/2023 Behavioral Health [facility] Survey [facility] Behavior[facility] Health Services 1 [place] [address] Justyn Miranda, [facility] [address] [place] [address] Social History Tobacco Use Types Packs/Day Years [...] Info) Description 12/20/2024 9:30 AM CDT Telemedicine [facility] Behavioral Health Services [address] [place] [address] Justyn Miranda LCSW [address] [place] [address] Discharge Disposition: Discharged to home or Selfcare [...] documented as of this encounter Care Teams Surgery Technician Relationship Specialty Start Date End Date Milly Celaya, ASSOCIATE QUALITY ENGINEER, SALES ACCOUNT MANAGER [address] [place] [address] PCP - General Obstetrics & Gynecology 05/23/18 Wilian Sultana MD Consulting Physician Neurology 08/11/16 06/24/24 Darnell Bryant MD [address] [place] [address] Psychiatry 03/16/18 documented as of this encounter
--- OUTSIDE RECORDS SUMMARY | 2024-12-10 16:43 | XMS_ITS | Encounter Summary ---
Author Organization [facility] Address [address] [facility] [place] [address] Phone Care Team Providers Care Forming Machine Adjuster Name Role Phone Darnell Bryant MD Unavailable Milly Celaya APRN, TRAPPER ANIMAL Primary Care Provider Unavailable Encounter Details Date Type Department Care Team (Late st Contact Info) Description 09/19/2024 [facility] 1 [place] [address] Justyn Miranda, DOPE POURER [address] [place] [address] Social History Tobacco Use Types Packs/Day Years [...] Info) Description 12/20/2024 9:30 AM CDT [facility] 1 [place] [address] Justyn Miranda, DOPE POURER [address] [place] [address] Discharge Disposition: Discharged to home or Selfcare [...] Ready to change Department associated with goal: [facility] BE[facility]IORAL [facility] SERVICES Steps to [...] Ready to change Department associated with goal: [facility] BE[facility]IOR[facility] SERVICES Steps to [...] documented as of this encounter Care Teams Forming Machine Adjuster Relationship Specialty Start Date End Date Milly Celaya, RIM ROLLER SETTER, TRAPPER ANIMAL [address] [address] PCP - General Obstetrics & Gynecology 05/23/18 Darnell Bryant MD [address] [address] Psychiatry 03/16/18 documented as of this encounter
[2024-12-10 16:52] LABS: Basophils Percent Auto 0.3 % (0.2-1.2); Eosinophils Absolute Auto 0.1 K/mm3 (0-0.3); Eosinophils Percent Auto 0.3 % (0-4.4); Hematocrit 38.6 % (37.0-47.0); Hemoglobin 12.6 g/dL (12.0-15.0); Immature Granulocyte Absolute 0.14 K/mm3 (0.00-0.031); Immature Granulocyte Percent A 0.9 % (0-0.5); Lymphocytes Absolute Auto 2.64 K/mm3 (0.9-3.2); Lymphocytes Percent Auto 16.8 % (18.3-44.2); Mean Corpuscular HGB Conc 32.6 g/dl (32-36); Mean Corpuscular Hemoglobin 29.4 pg (26-34); Mean Platelet Volume 11.5 fl (7.4-10.4); Monocytes Absolute Auto 1.1 K/mm3 (0.1-0.6); Neutrophils Absolute Auto 11.7 K/mm3 (1.3-6.7); Neutrophils Percent Auto 74.7 % (45.5-73.1); Platelet Count Result 194 k/mm3 (150-375); Red Blood Count 4.29 M/mm3 (4.2-5.4); Red Cell Distribution Width 13.6 % (11.5-14.5); White Blood Count 15.7 K/mm3 (4.5-10.0)
[2024-12-10 17:03] LABS: Alanine Aminotransferase 26 U/L (6-35); Albumin Level 3.8 g/dL (3.5-5.1); Alkaline Phosphatase 67 U/L (38-126); Anion Gap 8 mmol/L (4-12); Aspartate Amino Transferase 22 U/L (14-36); Bilirubin,Total 0.8 mg/dL (0.2-1.3); Blood Urea Nitrogen 20 mg/dL (7-17); Calcium 8.7 mg/dL (8.4-10.2); Carbon Dioxide 22 mmol/L (22-30); Chloride 102 mmol/L (98-107); Estimated CRCL calculation 22 ml/min; Estimated Glomerular Filt Rate 28; Glucose 139 mg/dL (65-110); Lipase 90 U/L (23-300); Potassium 4.1 mmol/L (3.4-5.0); Sodium 132 mmol/L (137-145)
--- OUTSIDE RECORDS SUMMARY | 2024-12-10 17:37 | XMS_ITS | Encounter Summary ---
Author Organization [facility] Address [address] [facility] [place] [address] Phone Care Team Providers Care Casing Worker Name Role Phone Wilian Sultana MD Unavailable Darnell Bryant MD Unavailable Milly Celaya APRN, DISASSEMBLER PRODUCT Primary Care Provider Unavailable Encounter Details Date Type Department Care Team (Late st Contact Info) Description 04/05/2024 [facility] 1 [place] [address] Justyn Miranda, LEARNING DISABILITIES SPECIALIST [address] [place] [address] Social History Tobacco Use Types Packs/Day Years [...] Info) Description 12/20/2024 9:30 AM CDT [facility] 1 [place] [address] Justyn Miranda LCSW [address]1 [place] [address] Discharge Disposition: Discharged to home or Selfcare [...] to change Department associated with goal: [facility] BEHAVIORAL HEALTH SERVICES Steps to achieve [...] to change Department associated with goal: [facility] BE[facility]AVIORAL HE[facility] SERVICES Steps to achieve [...] documented as of this encounter Care Teams Casing Worker Relationship Specialty Start Date End Date Milly Celaya, SEAFOOD PROCESS WORKER, DISASSEMBLER PRODUCT [place] [address] PCP - General Obstetrics & Gynecology 05/23/18 Wilian Sultana MD Consulting Physician Neurology 08/11/16 06/24/24 Darnell Bryant MD [address] [place] [address] Psychiatry 03/16/18 documented as of this encounter
--- OUTSIDE RECORDS SUMMARY | 2024-12-10 17:37 | XMS_ITS | Encounter Summary ---
Author Organization [facility] Address [address] [place] [address] [facility] [place] [address] Phone Care Team Providers Care Cytopathology Technologist Name Role Phone Wilian Sultana MD Unavailable Darnell Bryant MD Unavailable Milly Celaya APRN, SURVEILLANCE SYSTEMS ANALYST Primary Care Provider Unavailable Encounter Details Date Type Department Care Team (Late st Contact Info) Description 06/22/2024 Behavioral [facility] 1 [place] [address] Justyn Miranda, HELICOPTER UTILITY AIRCREWMAN [address] [place] [address] Social History Tobacco Use Types Packs/Day Years [...] Info) Description 12/20/2024 9:30 AM CDT [facility]medicine [facility] 1 [place] [address] Justyn Miranda LCSW [address] [place] [address] Discharge Disposition: Discharged to home or Selfcare [...] to change Department associated with goal: [facility] BEHAVIORAL HEALTH SERVICES Steps to [...] to change Department associated with goal: [facility] BEHAVIORAL HEALTH SERVICES Steps to [...] documented as of this encounter Care Teams Cytopathology Technologist Relationship Specialty Start Date End Date Milly Celaya, POLYSOMNOGRAPHY TECHNICIAN, SURVEILLANCE SYSTEMS ANALYST Hilton [facility] [address] PCP - General Obstetrics & Gynecology 05/23/18 Wilian Sultana MD Consulting Physician Neurology 08/11/16 06/24/24 Darnell Bryant MD [address] [address] Psychiatry 03/16/18 documented as of this encounter
--- OUTSIDE RECORDS SUMMARY | 2024-12-10 17:38 | XMS_ITS | Encounter Summary ---
Author Organization [facility] Address [address] [place] [address] [facility] [place] [address] Phone Care Team Providers Care Slasher Machine Operator Name Role Phone Wilian Sultana MD Unavailable Darnell Bryant MD Unavailable Milly Celaya APRN, COLOR STRIPPER Primary Care Provider Unavailable Encounter Details Date Type Department Care Team (Late st Contact Info) Description 03/05/2024 [facility] 1 [place] [address] Justyn Miranda, SCREENING UNIT REGISTERED NURSE #1 [place] [address] Social History Tobacco Use Types Packs/Day Years [...] Info) Description 12/20/2024 9:30 AM CDT [facility] 1 [place] [address] Justyn Miranda LCSW [address] [place] [address] Discharge Disposition: Discharged to home or Selfcare [...] to change Department associated with goal: [facility] Steps to achieve goal: [...] to change Department associated with goal: [facility] Steps to achieve goal: [...] documented as of this encounter Care Teams Slasher Machine Operator Relationship Specialty Start Date End Date Milly Celaya, COARSE WIRE DRAWER, COLOR STRIPPER [place] [address] PCP - General Obstetrics & Gynecology 05/23/18 Wilian Sultana MD Consulting Physician Neurology 08/11/16 06/24/24 Darnell Bryant MD [address] [place] [address] Psychiatry 03/16/18 documented as of this encounter
--- OUTSIDE RECORDS SUMMARY | 2024-12-10 17:38 | XMS_ITS | Clinical Summary ---
Author Organization [facility] Address [address] [place] [address] Phone Care Team Providers Care Frozen Foods Manager Name Role Phone Sara Vela MD Primary Care Provider Allergies Active Allergy Reactions Criticality Noted Date Comments Amitriptyline Other (see comments) 08/31/2021 [place] drugged up a lot and felt strange [...] MG tablet 1 prn 0 7 Active Finley-3 1000 MG capsule Take 1 capsule by [...] HERPES FLARE UP 1 Active nystatin (MYCOSTATIN) 540899 UNIT/ML suspension ADMININSTER (5ML) EVERY 6 HOURS 1/2 OF DOSE IN EACH SIDE OF THE MOUTH. 1 Active mirtazapine (REMERON) 15 MG tablet TAKE 1/2 (ONE-HALF) TABLET BY MOUTH TWICE DAILY 2 Active neomycin-polymy allie-hydrocortis one (CORTISPORIN) 3.5-14959-5 otic suspension INSTILL 4 DROPS INTO LEFT [...] 2025 05/22/20 20 Insurance [employer] MEDICARE ADVANTAGE ENT Surgical Care Teams Frozen Foods Manager Relationship Specialty Start Date End Date Sara Vela MD [address] [place] [address] PCP - General Internal Medicine 08/24/21
--- OUTSIDE RECORDS SUMMARY | 2024-12-10 17:38 | XMS_ITS | Encounter Summary ---
Author Organization [facility] Address [address] [place] [address] Care Team Providers Care Dispatcher Refinery Name Role Phone Sara Vela MD Primary Care Provider Gin Toth MD Unavailable Unavailable Augustin Goodson MD Unavailable [phone] Darnell Bryant MD Unavailable [phone] Leon Oneill MD Unavailable [phone] Rick Rivas MD Unavailable Encounter Details Date Type Department Care Team (Late st Contact Info) Description 11/19/2021 MyChart Message Enc [facility] Orthopedic & Sports Medicine - [address] [address] Rudy Velasquez MD I need help please [...] on filedocumented in this encounter Care Teams Dispatcher Refinery Relationship Specialty Start Date End Date Sara Vela MD [address] [place] [address] PCP - General FAMILY PRACTICE 07/07/21 Gin Toth MD [address] [place] [address] CARDIOVASCULAR DISEASE 08/31/21 Augustin Goodson MD [address] [facility] [address] [place] [address] Referring Physician NEPHROLOGY 08/31/21 Darnell Bryant MD [facility] Psychiatry [address] [facility] [place] [address] Psychiatry 08/31/21 Leon Oneill MD [address] [facility] [address] [place] [address] HEMATOLOGY/ONCOLOGY 08/31/21 Rick Rivas MD [address] [place] [address] Referring Physician RHEUMATOLOGY 08/31/21 documented as of this encounter
--- OUTSIDE RECORDS SUMMARY | 2024-12-10 17:38 | XMS_ITS | Clinical Summary ---
Author Organization [facility] Building [facility] Address [address] [place] [address] Care Team Providers Care Vice President Name Role Phone Augustin Goodson MD Unavailable [phone] Leon Oneill MD Unavailable [phone] Rick Rivas MD Unavailable Wilian Sultana MD Unavailable [phone] Renetta Sarabia MD Unavailable [phone] Sara Vela MD Primary Care Provider Prudence Gaines MD Unavailable Allergies Active Allergy Reactions Criticality Noted Date Comments Adhesive Other (See comments),Rash High 08/31/2021 Says the EKG leads being left on her skin caused 3rd degree nova of the skin. Amitriptyline Other (See comments) 08/31/2021 Early drugged up a lot and felt strange [...] 12/26/2018 Assessment & Plan (10/04/2018 9:33 PM MODEL AND MOLD MAKER PLASTER): Rapid flu in office was negative as [...] Type Department Care Team Description 12/06/2024 Telephone [facility] [address] [place] [address] Advanced [facility] [address] [place] [address] Altagracia Laura MD PhD PMC Preprocedure 11/19/2024 Telephone [facility] at the [facility] Advanced Medicine [address] [place] [address] [facility] [address] [place] [address] Altagracia Laura MD PhD SPK W/NURSE 11/06/2024 10:00 AM CDT - 11/06/2024 11:59 PM CDT Hospital Encounter [facility] [address] [place] [address] [facility] [address] [place] [address] Altagracia Laura MD PhD Complex regional pain syndrome type 2 of right upper extremity (Primary Dx); Ulnar neuropathy of right upper extremity; Neuropathic pain Discharge Disposition: Discharge to home or self care 10/30/2024 11:30 AM CDT Therapy [facility] Physical Therapy [address] [place] [address] 6th [place] [address] [place] [address] Aaliyah Koenig DPT 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) 10/23/2024 11:30 AM CDT Therapy [facility] Physical Therapy [address] [place] [address] 6th [place] [address] [place] [address] Aaliyah Koenig DPT 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) 10/16/2024 10:30 AM CDT Therapy [facility] Physical Therapy [address] [place] [address] 6th [place] [address] [place] [address] Aaliyah Koenig DPT 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) 10/11/2024 1:00 PM MODEL AND MOLD MAKER PLASTER Therapy [facility] Physical Therapy [address] [facility] 6th [place] [address] [place] [address] Aaliyah Koenig DPT 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) 10/04/2024 1:15 PM MODEL AND MOLD MAKER PLASTER Office Visit [facility] Surgery [address] [facility] 6th [place] [address] [place] [address] Telma Frost MD 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) 10/02/2024 11:30 AM MODEL AND MOLD MAKER PLASTER Therapy [facility] Physical Therapy [facility] 6th [place] [address] [place] [address] Mimi Coelho DPT 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) 09/26/2024 Telephone [facility] Physical Therapy [facility] 6th [place] [address] Aailyah Koenig DPT patient question 09/17/2024 2:00 PM MODEL AND MOLD MAKER PLASTER Therapy [facility] Physical Therapy [facility] 6th [place] [address] [place] [address] Aaliyah Koenig DPT 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) from Last 3 Months Immunizations Immunization Administration Dates Next Due Influenza, Quad, Adjuvantated, Intramuscular Pneumococcal Conjugate PCV 13 07/17/2020 Surgical History Surgery Date Site/Laterality Comments CATARACT EXTRACTION HYSTERECTOMY Medical History Medical History Date Comments Hx Other Medical Parkinson's Dis ease ??? Hx Other Medical On [place] Anxiety disorder Anxiety Hx Other Medical Back [...] on file Legal Sex Female 7:06 AM MODEL AND MOLD MAKER PLASTER Gender Identity Female 06/12/2021 1:30 PM CDT [...] Relevant to Health Maintenance Insurance [facility] Dodonation OPEN ACCESS [facility] zappitRA Dodonation OPEN ACCESS [facility] HEALTHLINK OPEN ACCESS Care Teams Vice President Relationship Specialty Start Date End Date Sara Vela MD [facility] [place] [address] [place] [address] PCP - General Family Practice 02/27/24 Augustin Goodson MD Referring Physician Nephrology 03/07/18 Leon Oneill MD [address] [place] [address] Referring Physician Hematology 03/07/18 Rick Rivas MD [address] [place] [address] Referring Physician Rheumatology 03/07/18 Wilian Sultana MD 1 [facility] [place] [address] Referring Physician Neurology 03/07/18 Renetta Sarabia MD 1 [facility] 3 [place] [address] Referring Physician Family Practice 12/27/19 Prudence Gaines MD [address] [facility] [address] [place] [address] Referring Physician Plastic Surgery 04/05/24
--- OUTSIDE RECORDS SUMMARY | 2024-12-10 17:38 | XMS_ITS | Encounter Summary ---
Author Organization [facility] Address [address] [facility] [place] [address] Phone Care Team Providers Care Stewarding Supervisor Name Role Phone Wilian Sultana MD Unavailable [phone] Darnell Bryant MD Unavailable Milly Celaya APRN, MEETING/EVENT PLANNER Primary Care Provider Unavailable Encounter Details Date Type Department Care Team (Late st Contact Info) Description 02/02/2024 Behavioral [facility] 1 [place] [address] Justyn Miranda, REBEAMER [address] [place] [address] Social History Tobacco Use Types Packs/Day Years [...] Info) Description 12/20/2024 9:30 AM CDT [facility] 1 [place] [address] Justyn Miranda LCSW #1 [place] [address] Discharge Disposition: Discharged to home or Selfcare [...] Ready to change Department associated with goal: [facility] BEHAVIORAL HEALTH SERVICES Steps to [...] Ready to change Department associated with goal: [facility] BEHAVIORAL HEALTH SERVICES Steps to [...] documented as of this encounter Care Teams Stewarding Supervisor Relationship Specialty Start Date End Date Milly Celaya, DRYER AND WASHER MECHANIC, MEETING/EVENT PLANNER [facility] [place] [address] PCP - General Obstetrics & Gynecology 05/23/18 Wilian Sultana MD Consulting Physician Neurology 08/11/16 06/24/24 Darnell Bryant MD [address] [place] [address] Psychiatry 03/16/18 documented as of this encounter
--- OUTSIDE RECORDS SUMMARY | 2024-12-10 17:38 | XMS_ITS | Encounter Summary ---
Author Organization [facility] Address [address] [place] [address] Care Team Providers Care Funeral Director/Embalmer/Owner Name Role Phone Sara Vela MD Primary Care Provider Gin Toth MD Unavailable Unavailable Augustin Goodson MD Unavailable [phone] Darnell Bryant MD Unavailable [phone] Leon Oneill MD Unavailable [phone] Rick Rivas MD Unavailable Encounter Details Date Type Department Care Team (Late st Contact Info) Description 01/26/2022 [employer] Message [facility] Patient Accounts [address] [place] [address] [facility] - Past [...] on filedocumented in this encounter Care Teams Funeral Director/Embalmer/Owner Relationship Specialty Start Date End Date Sara Vela MD [address] [place] [address] PCP - General FAMILY PRACTICE 07/07/21 Gin Toth MD [address] [place] [address] CARDIOVASCULAR DISEASE 08/31/21 Augustin Goodson MD [address] [facility] [address] [place] [address] Referring Physician NEPHROLOGY 08/31/21 Darnell Bryant MD [facility] [place] [address] [place] [address] Psychiatry 08/31/21 Leon Oneill MD [address] [facility] [address] [place] [address] HEMATOLOGY/ONCOLOGY 08/31/21 Rick Rivas MD [address] [place] [address] Referring Physician RHEUMATOLOGY 08/31/21 documented as of this encounter
--- OUTSIDE RECORDS SUMMARY | 2024-12-10 17:38 | XMS_ITS | Encounter Summary ---
Author Organization [facility] Address [address] [facility] [place] [address] Phone Care Team Providers Care Plodding Machine Operator Name Role Phone Wilian Sultana MD Unavailable Darnell Bryant MD Unavailable Milly Celaya APRN, ROUND CUTTER OPERATOR Primary Care Provider Unavailable Encounter Details Date Type Department Care Team (Late st Contact Info) Description 05/22/2024 Behavioral Health [facility] 1 [place] [address] Justyn Miranda, SHOP SUPERVISOR #1 [place] [address] Social History Tobacco Use Types Packs/Day Years [...] 12/20/2024 9:30 AM CDT [facility] 1 [place] [address] Justyn Miranda LCSW [address] [place] [address] Discharge Disposition: Discharged to home or Selfcare [...] change Department associated with goal: [facility] Steps to achieve goal: [...] change Department associated with goal: [facility] Steps to achieve goal: [...] documented as of this encounter Care Teams Plodding Machine Operator Relationship Specialty Start Date End Date Milly Celaya, ELECTRIC SWITCH REPAIRER, ROUND CUTTER OPERATOR [facility] [address] PCP - General Obstetrics & Gynecology 05/23/18 Wilian Sultana MD Consulting Physician Neurology 08/11/16 06/24/24 Darnell Bryant MD [address] [place] [address] Psychiatry 03/16/18 documented as of this encounter
--- OUTSIDE RECORDS SUMMARY | 2024-12-10 17:38 | XMS_ITS | Encounter Summary ---
Author Organization [facility] Address [address] [place] [address] Care Team Providers Care Packing And Wrapping Supervisor Name Role Phone Renetta Sarabia MD Primary Care Provider Reason for Visit * Reason Onset Date Comments lab orders 07/13/2022 Encounter Details Date Type Department Care Team (Late st Contact Info) Description 07/13/2022 Telephone [facility] Oncology and Hematology - [place] [address] [place] [address] [address] [place] [address] Leon Oneill MD [address] [facility] [address] [place] [address] lab orders Social History Tobacco [...] Renetta Faith RN - 07/13/2022 10:28 AM STOCK BUYER No labs ordered for this patient at last visit. 1 year F/U. I pended CBC, CMP, Immunoglobulins. Please add any other orders needed. K BUYER documented in this encounter Plan of Treatment Upcoming Encounters Date Type Department Care Team (Late st Contact Info) Description 07/22/2025 1:00 PM STOCK BUYER Office Visit [facility] Oncology and Hematology - [place] [address] [facility] [address] [place] [address] Leon Oneill MD [address] [facility] [address] [place] [address] documented as of this encounter Visit Diagnoses Diagnosis Hypogammaglobulinemia- Primary Hypogammaglobulinaemia, unspecified documented in this encounter Care Teams Packing And Wrapping Supervisor Relationship Specialty Start Date End Date Renetta Sarabia MD PCP - General Family Practice 12/21/19 documented as of this encounter
--- OUTSIDE RECORDS SUMMARY | 2024-12-10 17:38 | XMS_ITS | Encounter Summary ---
Author Organization [facility] Address [address] [facility] [address] [place] [address] Care Team Providers Care Sail Maker Name Role Phone Leon Chandler MD Primary Care Provider [phone] Leon Chandler MD Primary Care Provider [phone] Milly Celaya NP Primary Care Provider [phone] Augustin Goodson MD Unavailable [phone] Leon Oneill MD Unavailable [phone] Rick Rivas MD Unavailable Gin Toth MD Unavailable [phone] Wilian Sultana MD Unavailable [phone] No, Physician Primary Care Provider [phone] Renetta Sarabia MD Primary Care Provider [phone] Renetta Sarabia MD Unavailable [phone] Renetta Sarabia MD Primary Care Provider [phone] Sara Vela MD Primary Care Provider Prudence Gaines MD Unavailable [phone] Encounter Details Date Type Department Care Team (Late st Contact Info) Description 08/25/2016 Orders Only [facility] ProviderMitchell MD [address] [place] [address] Social History Tobacco Use Types Packs/Day Years Used Date Smoking Tobacco: Never Alcohol Use Standard Drinks/Week Comments No 0 (1 standard drink = 0.6 oz pur e alcohol) Comments Unknown Sex and Gender Information Value Date Recorded Sex Assigned at Not on file Legal Sex Female 7:06 AM ACID CONDITIONING WORKER Gender Identity Female 06/12/2021 1:30 PM [...] on filedocumented in this encounter Care Teams Sail Maker Relationship Specialty Start Date End Date Leon Chandler MD PCP - General 11/05/16 03/06/18 Leon Chandler MD PCP - General 02/25/14 11/04/16 Milly Celaya NP [address] [place] [address] PCP - General Family Medicine 03/07/18 11/08/19 No, Physician PCP - General 11/09/19 12/26/19 Renetta Sarabia MD PCP - General Family Practice 12/27/19 12/27/19 Renetta Sarabia MD PCP - General Family Practice 01/03/20 09/21/21 Sara Vela MD [address] [facility] 2 [place] [address] PCP - General Family Practice 02/27/24 Augustin Goodson MD [address] [facility] 200 [place] [address] Referring Physician Nephrology 03/07/18 Leon Oneill MD [address] [facility] [address] [place] [address] Referring Physician Hematology 03/07/18 Rick Rivas MD [address] [facility] [address] [place] [address] Referring Physician Rheumatology 03/07/18 Gin Toth MD [address] [facility] [address] [place] [address] Consulting Physician Cardiology 03/07/18 02/26/24 Wilian Sultana MD 1 [facility] 3 [place] [address] Referring Physician Neurology 03/07/18 Renetta Sarabia MD Referring Physician Family Practice 12/27/19 Prudence Gaines MD [address] [facility] 22 [place] [address] Referring Physician Plastic Surgery 04/05/24 documented as of this encounter
--- OUTSIDE RECORDS SUMMARY | 2024-12-10 17:38 | XMS_ITS | Encounter Summary ---
Author Organization [facility] Address [address] [place] [place] [address] Phone Care Team Providers Care Customer Solutions Coordinator Name Role Phone Darnell Bryant MD Unavailable Milly Celaya APRN, MULTIPLE KNIFE EDGE TRIMMER OPERATOR Primary Care Provider Unavailable Encounter Details Date Type Department Care Team (Late st Contact Info) Description 12/05/2024 Behavioral Health [facility] 1 [place] [address] Justyn Miranda, SHAMPOO TECHNICIAN [address] [place] [address] Social History Tobacco Use Types Packs/Day Years [...] 12/20/2024 9:30 AM CDT Telemedicine [facility] 1 [place] [address] Justyn Miranda, SHAMPOO TECHNICIAN [address] [place] [address] Discharge Disposition: Discharged to home or Selfcare [...] documented as of this encounter Care Teams Customer Solutions Coordinator Relationship Specialty Start Date End Date Milly Celaya, PET FEEDER, MULTIPLE KNIFE EDGE TRIMMER OPERATOR [address] [place] [address] PCP - General Obstetrics & Gynecology 05/23/18 Darnell Bryant MD [address] [place] [address] Psychiatry 03/16/18 documented as of this encounter
--- OUTSIDE RECORDS SUMMARY | 2024-12-10 17:38 | XMS_ITS | Encounter Summary ---
Author Organization [facility] Address [address] [facility] [place] [address] Phone Care Team Providers Care Code Enforcement Supervisor Name Role Phone Wilian Sultana MD Unavailable Darnell Bryant MD Unavailable Milly Celaya APRN, DIECAST MACHINE OPERATOR Primary Care Provider Unavailable Encounter Details Date Type Department Care Team (Late st Contact Info) Description 11/08/2023 Behavioral [facility] 1 [place] [address] Justyn Miranda, GUN STRIPER [address] [place] [address] Social History Tobacco Use Types Packs/Day Years [...] Info) Description 12/20/2024 9:30 AM CDT [facility] 1 [place] [address] Justyn Miranda LCSW [address] [place] [address] Discharge Disposition: Discharged to home or Selfcare [...] Ready to change Department associated with goal: [facility] Steps [...] Ready to change Department associated with goal: [facility] Steps [...] documented as of this encounter Care Teams Code Enforcement Supervisor Relationship Specialty Start Date End Date Milly Celaya, EMERGENCY MEDICINE MEDICAL DIRECTOR, DIECAST MACHINE OPERATOR [facility] [address] PCP - General Obstetrics & Gynecology 05/23/18 Wilian Sultana MD Consulting Physician Neurology 08/11/16 06/24/24 Darnell Bryant MD [address] [place] [address] Psychiatry 03/16/18 documented as of this encounter
--- OUTSIDE RECORDS SUMMARY | 2024-12-10 17:38 | XMS_ITS | Encounter Summary ---
Author Organization [facility] Address [address] [facility] [place] [address] Phone Care Team Providers Care Vp Site Name Role Phone Wilian Sultana MD Unavailable Darnell Bryant MD Unavailable Milly Celaya APRN, POULTRY PATHOLOGIST Primary Care Provider Unavailable Encounter Details Date Type Department Care Team (Late st Contact Info) Description 10/04/2023 Behavioral Health [facility] 1 [place] [address] Justyn Miranda, SCRIPT ARTIST [address] [place] [address] Social History Tobacco Use Types Packs/Day Years [...] Description 12/20/2024 9:30 AM CDT [facility]med[facility] 1 [place] [address] Justyn Miranda LCSW [address] [place] [address] Discharge Disposition: Discharged to home or Selfcare [...] documented as of this encounter Care Teams Vp Site Relationship Specialty Start Date End Date Milly Celaya, DOG POUND ATTENDANT, POULTRY PATHOLOGIST Hilton [facility] [place] [address] PCP - General Obstetrics & Gynecology 05/23/18 Wilian Sultana MD Consulting Physician Neurology 08/11/16 06/24/24 Darnell Bryant MD [address] [place] [address] Psychiatry 03/16/18 documented as of this encounter
--- OUTSIDE RECORDS SUMMARY | 2024-12-10 17:38 | XMS_ITS | Clinical Summary ---
Author Organization [facility] Address [address] [place] [address] Care Team Providers Care Pediatric Registered Nurse Name Role Phone Sara Vela MD Primary Care Provider Source Comments [facility],non-owned Affiliates and Associated Physician Practices is amultiple site organization consisting of ambulatory clinics and hospital sitesin [place], [place], [place] and [place]. This disclosure is being madepursuant to the Care Everywhere program and may not contain all information available regarding this patient. Last updated 18.[facility] Allergies Active Allergy Reactions Criticality Noted Date [...] on file Legal Sex Female 1:35 PM FLOORWALKER Gender Identity Not on file Sexual Orientation Not on file Last Filed Vital Signs Vital Sign Reading Time Taken Comments Blood Pressure 112/62 06/23/2017 4:02 PM FLOORWALKER Pulse 55 06/23/2017 4:02 PM FLOORWALKER Temperature 36.8 C (98.2 F) 06/23/2017 4:02 PM FLOORWALKER Respiratory Rate 16 06/23/2017 4:02 PM FLOORWALKER Oxygen Saturation - - Inhaled Oxygen Concentration - - Weight 67.1 kg (148 lb) 06/23/2017 4:02 PM FLOORWALKER Height 157.5 cm (5' 2 ) 06/23/2017 4:02 PM FLOORWALKER Body Mass Index 27.07 06/23/2017 4:02 PM FLOORWALKER Plan of Treatment Health Maintenance Due Date [...] AETNA MEDICARE ADV [facility] AETNA MEDICARE ADV [place] AETNA MEDICARE ADV Care Teams Pediatric Registered Nurse Relationship Specialty Start Date End Date Sara Vela MD [address] [place] [address] PCP - General 12/06/22
--- OUTSIDE RECORDS SUMMARY | 2024-12-10 17:38 | XMS_ITS | Referral Summary ---
Author Organization [facility] Address [address] [place] [address] Care Team Providers Care Safety Glass Installer Name Role Phone Augustin Goodson MD Unavailable [phone] Leon Oneill MD Unavailable [phone] Rick Rivas MD Unavailable Wilian Sultana MD Unavailable [phone] Renetta Sarabia MD Unavailable [phone] Sara Vela MD Primary Care Provider Prudence Gaines MD Unavailable Encounters Date Type Department Care Team Description 12/06/2024 Telephone [facility] [address] [facility] [address] [place] [address] Altagracia Laura MD PhD PMC Preprocedure 11/19/2024 Telephone [facility] [address] [facility] [address] [place] [address] Altagracia Laura MD PhD SPK W/NURSE 11/06/2024 10:00 AM CDT - 11/06/2024 11:59 PM CDT Hospital Encounter [facility] [address] [facility] [address] [place] [address] Altagracia Laura MD PhD Complex regional pain syndrome type 2 of right upper extremity (Primary Dx); Ulnar neuropathy of right upper extremity; Neuropathic pain Discharge Disposition: Discharge to home or self care 10/30/2024 11:30 AM CDT Therapy [facility] [address] [place] [address] 6th [place] [address] [place] [address] Aaliyah Koenig DPT 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) 10/23/2024 11:30 AM CDT Therapy [facility] [address] [place] [address] 6th [place] [address] [place] [address] Aaliyah Koenig DPT 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) 10/16/2024 10:30 AM CDT Therapy [facility] [address] [place] [address] [place] [address] Aaliyah Koenig DPT 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) 10/11/2024 1:00 PM RAW MATERIAL PLANNER Therapy [facility] [address] 6th [place] [address] [place] [address] Aaliyah Koenig DPT 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) 10/04/2024 1:15 PM RAW MATERIAL PLANNER Office Visit [facility] [address] [place] [address] 6th [place] [address] [place] [address] Telma Frost MD 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) 10/02/2024 11:30 AM RAW MATERIAL PLANNER Therapy [facility] [address] [place] [address] 6th [place] [address] [place] [address] Mimi Coelho DPT 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) 09/26/2024 Telephone [facility] [address] [place] [address] 6th [place] [address] [place] [address] Aaliyah Koenig DPT patient question 09/17/2024 2:00 PM RAW MATERIAL PLANNER Therapy [facility] [address] [place] [address] Medicine 6th [place] [address] [place] [address] Aaliyah Koenig, YAIDELT 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) from Last 3 Months Allergies Active Allergy Reactions Criticality Noted Date Comments Adhesive Other (See comments),Rash High 08/31/2021 Says the EKG leads being left on her skin caused 3rd degree nova of the skin. Amitriptyline Other (See comments) 08/31/2021 Guthrie drugged up a lot and felt strange [...] 12/26/2018 Assessment & Plan (10/04/2018 9:33 PM RAW MATERIAL PLANNER): Rapid flu in office was negative as [...] on file Legal Sex Female 7:06 AM RAW MATERIAL PLANNER Gender Identity Female 06/12/2021 1:30 PM CDT [...] * COLONOSCOPY (03/19/2013 8:29 AM CDT) Pathologist [facility] Colonoscopy Normal Historical Provider HEALTH MAINTENANCE Final Result * DEXA SCAN (12/20/2008) DEXA Scan Unknown Historical Provider HEALTH MAINTENANCE Final Result from Last 3 Months or Most Recently Relevant to Health Maintenance Insurance [facility] [employer] OPEN ACCESS [facility] [employer] OPEN ACCESS [facility] HEALTHLINK OPEN ACCESS Care Teams Safety Glass Installer Relationship Specialty Start Date End Date Sara Vela MD [facility] 2 [place] [address] PCP - General Family Practice 02/27/24 Augustin Goodson MD Referring Physician Nephrology 03/07/18 Leon Oneill MD [address] [place] [address] Referring Physician Hematology 03/07/18 Rick Rivas MD [address] [place] [address] Referring Physician Rheumatology 03/07/18 Wilian Sultana MD [address] [facility] 3 [place] [address] Referring Physician Neurology 03/07/18 Renetta Sarabia MD [address] [facility] 3 [place] [address] Referring Physician Family Practice 12/27/19 Prudence Gaines MD [address] [facility] 22 [place] [address] Referring Physician Plastic Surgery 04/05/24
--- OUTSIDE RECORDS SUMMARY | 2024-12-10 17:38 | XMS_ITS | Encounter Summary ---
Author Organization [facility] Address [address] [place] [address] [facility] [place] [address] Phone Care Team Providers Care Java Technical Architect Name Role Phone Darnell Bryant MD Unavailable Milly Celaya APRN, SCREEN ROOM OPERATOR Primary Care Provider Unavailable Encounter Details Date Type Department Care Team (Late st Contact Info) Description 08/06/2024 Behavioral [facility] 1 [place] [address] Justyn Miranda, COAL TRIMMER MACHINE OPERATOR [address] [place] [address] Social History Tobacco Use Types Packs/Day Years [...] Description 12/20/2024 9:30 AM CDT [facility] 1 [place] [address] Justyn Miranda, COAL TRIMMER MACHINE OPERATOR [address] [place] [address] Discharge Disposition: Discharged to home or Selfcare [...] Ready to change Department associated with goal: [facility] Steps to [...] Ready to change Department associated with goal: [facility] Steps to [...] documented as of this encounter Care Teams Java Technical Architect Relationship Specialty Start Date End Date Milly Celaya, CAPACITY PLANNING ENGINEER, SCREEN ROOM OPERATOR [address] [address] PCP - General Obstetrics & Gynecology 05/23/18 Darnell Bryant MD [address] [address] Psychiatry 03/16/18 documented as of this encounter
--- OUTSIDE RECORDS SUMMARY | 2024-12-10 17:38 | XMS_ITS | Encounter Summary ---
Author Organization [facility] Address [address] [facility] [place] [address] Phone Care Team Providers Care Avp Name Role Phone Wilian Sultana MD Unavailable [phone] Darnell Bryant MD Unavailable Milly Celaya APRN, WOOD MODEL BUILDER Primary Care Provider Unavailable Encounter Details Date Type Department Care Team (Late st Contact Info) Description 12/20/2023 [facility] 1 [place] [address] Justyn Miranda, ELECTROLYSIS NEEDLE OPERATOR #[address] [place] [address] Social History Tobacco Use Types Packs/Day Years [...] Info) Description 12/20/2024 9:30 AM CDT [facility]med[facility] 1 [place] [address] Justyn Miranda LCSW [address]1 [place] [address] Discharge Disposition: Discharged to home or Selfcare [...] documented as of this encounter Care Teams Avp Relationship Specialty Start Date End Date Milly Celaya, LINEN CONTROLLER, WOOD MODEL BUILDER Hilton [facility] [address] PCP - General Obstetrics & Gynecology 05/23/18 Wilian Sultana MD Consulting Physician Neurology 08/11/16 06/24/24 Darnell Bryant MD [address] [place] [address] Psychiatry 03/16/18 documented as of this encounter
--- OUTSIDE RECORDS SUMMARY | 2024-12-10 17:38 | XMS_ITS | Encounter Summary ---
Author Organization [facility] Address [address] [place] [address] Care Team Providers Care Identification Technician Name Role Phone Augustin Goodson MD Unavailable [phone] Leon Oneill MD Unavailable [phone] Rick Rivas MD Unavailable Wilian Sultana MD Unavailable [phone] Renetta Sarabia MD Unavailable Sara Vela MD Primary Care Provider Prudence Gaines MD Unavailable [phone] Reason for Visit * Reason Onset Date Comments SPK W/NURSE 11/19/2024 Encounter Details Date Type Department Care Team (Late st Contact Info) Description 11/19/2024 Telephone [facility] [place] [facility] [address] [facility] [address] [place], [place] [address] Altagracia Laura MD PhD [address] [facility] [phone] [place] [address] SPK W/NURSE Social History Tobacco Use Types [...] on file Legal Sex Female 7:06 AM LATHING SUPERVISOR Gender Identity Female 06/12/2021 1:30 PM [...] on filedocumented in this encounter Care Teams Identification Technician Relationship Specialty Start Date End Date Sara Vela MD [address] [facility] [address] [place] [address] PCP - General Family Practice 02/27/24 Augustin Goodson MD Referring Physician Nephrology 03/07/18 Leon Oneill MD [address] [place] [address] Referring Physician Hematology 03/07/18 Rick Rivas MD [address] [place] [address] Referring Physician Rheumatology 03/07/18 Wilian Sultana MD [address] [facility] [address] [place] [address] Referring Physician Neurology 03/07/18 Renetta Sarabia MD [address] [place] [address] Referring Physician Family Practice 12/27/19 Prudence Gaines MD [address] [facility] 22 [place] [address] Referring Physician Plastic Surgery 04/05/24 documented as of this encounter
--- OUTSIDE RECORDS SUMMARY | 2024-12-10 17:38 | XMS_ITS | Clinical Summary ---
Author Organization [facility] Address [facility] [place] [address] Care Team Providers Care Radio Communication Coordinator Name Role Phone Sara Vela MD Primary Care Provider Gin Toth MD Unavailable Unavailable Augustin Goodson MD Unavailable [phone] Darnell Bryant MD Unavailable [phone] Leon Oneill MD Unavailable [phone] Rick Rivas MD Unavailable Allergies Active Allergy Reactions Criticality Noted Date Comments Tape Rash,Other (see comment) High 08/31/2021 Says the EKG leads being left on her skin caused 3rd degree nova of the skin. Amitriptyline Other (see comment) 08/31/2021 Atkins drugged up a lot and felt strange [...] Other (Age a round January 2021) had ND, HTN, poorly controlled diabetes, in sleep with ND. patient raised him when he was a [...] AM CDT Pulse 63 10/13/2021 11:17 AM SLABBER Temperature 36.4 C (97.6 F) 10/13/2021 11:17 AM SLABBER Respiratory Rate 18 10/13/2021 11:1 7 AM SLABBER Oxygen Saturation 99% 10/13/2021 11: 17 AM SLABBER Inhaled Oxygen Concentration - - Weight 71.1 [...] age to complete this topic Insurance AETNA [employer] [facility] Care Teams Radio Communication Coordinator Relationship Specialty Start Date End Date Sara Vela MD [address] [place] [address] PCP - General FAMILY PRACTICE 07/07/21 Gin Toth MD [address] [place] [address] CARDIOVASCULAR DISEASE 08/31/21 Augustin Goodson MD [address] [facility] [address] [place] [address] Referring Physician NEPHROLOGY 08/31/21 Darnell Bryant MD [facility] [address] [place] [address] Psychiatry 08/31/21 Leon Oneill MD [address] [facility] [address] [place] [address] HEMATOLOGY/ONCOLOGY 08/31/21 Rick Rivas MD [address] [place] [address] Referring Physician RHEUMATOLOGY 08/31/21
--- OUTSIDE RECORDS SUMMARY | 2024-12-10 17:38 | XMS_ITS | Continuity of Care Document ---
Author Organization [facility] Address [address] [place] [address] [place] [address] Phone Care Team Providers Care Can Repairer Name Role Phone Marcus Redmond Unavailable Unavailable [...] Providers Copied on Encounter Office/outpat ient Visit, [facility], [address] [place] [address] [address], [place], [place], [id number], [place] tel:[phone] [facility] [place] No Information 9-201 0 Nyla Velazquez. [address] , [address], [place], [place], [facility], . tel:[phone] Office/outpat ient Visit, [facility], [address] [place] [address] [address], [place], [place], [id number], [place] tel:[phone] [facility] [place] No Information 1-200 9 Hali Barahona. [address] , [address], [place], [address], . tel:[phone] Office/outpat ient Visit, [facility], [address] [place] [address] [address], [place], [place], [id number], [place] tel:[phone] [facility] [place] No Information May-0 7-200 9 Lal Brooklyn. [address], [place], [place], [facility], . tel:[phone] Office/outpat ient Visit, [facility], [address] [place] [address] [address], [place], [place], [id number], [place] tel:[phone] [facility] [place] No Information Apr-2 7-200 9 Trey Grimaldohil. [address], [place], [facility], . tel:[phone] Located within [facility], [id number] [place] [address] [address], [place], [place], [id number], tel:[phone] [facility] [place] No Information Nov-2 3-200 9 Hali Barahona. [address] , [address], [place], [facility], . tel:[phone] Located within [facility], [address] [place] [address] [address], [place], [place], [id number], tel:[phone] [facility] [place] No Information Ish-2 0-200 9 Hall OD Darnell. [address] , [address], [place], [facility], [place]. tel:[phone] [facility], [address] [place] [address] [address], [place], [place], [id number], [place] tel:[phone] [facility] No Information Feb-2 8-200 7 Hall OD Darnell. [address] , [address], [place], [place], [facility], . tel:[phone] Family History Family Member Type Diagnosis Age [...]
--- OUTSIDE RECORDS SUMMARY | 2024-12-10 17:38 | XMS_ITS | CONTINUITY OF CARE DOCUMENT ---
Author Name dinorah copeland Address Unknown Organization [facility] Address [address] [facility] [address] [place] [address] Phone [phone] Care Team Providers Care Area Operations Director Name Role Phone Gregorio Parra MD Unavailable [phone] JAIME SOARES MD Unavailable [phone] JAIME SOARES MD Unavailable PROBLEMS Condition Status [...] In-person encounter Office Visit Gregorio Parra MD [facility] VITAL SIGNS Date Observation Value Provider [...] Interpretation Location 1 calcium, serum 10.1 mg/dL [facility] 1 blood glucose, fasting 122 mg/dL [facility] 1 creatinine, serum 1.28 mg/dL [facility] 1 urea nitrogen, blood 16 mg/dL [facility] 1 carbon dioxide, serum, total 26.3 mmol/L [facility] 1 chloride, serum 107 mmol/L [facility] 1 potassium, serum 4.1 mmol/L [facility] 1 sodium, serum 141 mmol/L [facility] HISTORY OF MEDICATION USE Medication [...] Payer name Policy type / Coverage type Merna red green party ID [place] MED[place] Medicare [id number] TREATMENT PLAN Date Name Performer FU test [...]
--- OUTSIDE RECORDS SUMMARY | 2024-12-10 17:38 | XMS_ITS | Clinical Summary ---
Author Organization [facility] Address [address] [facility], [place] [address] Phone Care Team Providers Care Thread Spooler Name Role Phone Darnell Bryant MD Unavailable Milly Celaya APRN, RESIDENTIAL MANAGER Primary Care Provider Unavailable Allergies Active Allergy [...] Team Description 12/05/2024 1:00 PM CDT Telemedicine [facility] [address] [place] [address] Justyn Miranda LCSW Generalized anxiety disorder (Primary Dx); Panic disorder; Adjustment disorder with mixed anxiety and depressed mood Discharge Disposition: Discharged to home or Selfcare 12/05/2024 Behavior[facility] [address] [place] [address] Justyn Miranda LCSW 12/05/2024 Travel 11/22/2024 12:00 PM CDT Telemedicine [facility] [address] [place] [address] Justyn Miranda LCSW Generalized anxiety disorder (Primary Dx); Panic disorder; Adjustment disorder with mixed anxiety and depressed mood Discharge Disposition: Discharged to home or Selfcare 11/21/2024 Travel 11/08/2024 9:30 AM CDT Telemedicine [facility] [address] [place] [address] Justyn Miranda LCSW Generalized anxiety disorder (Primary Dx); Panic disorder; Adjustment disorder with mixed anxiety and depressed mood Discharge Disposition: Discharged to home or Selfcare 11/08/2024 Travel 10/25/2024 11:30 AM CDT Telemedicine [facility] [address] [place] [address] Justyn Miranda LCSW Generalized anxiety disorder (Primary Dx); Panic disorder; Adjustment disorder with mixed anxiety and depressed mood Discharge Disposition: Discharged to home or Selfcare 10/25/2024 Travel 10/09/2024 9:30 AM ASSOCIATE MERCHANT [facility]medicine [facility] [address] [place] [address] Justyn Miranda LCSW Generalized anxiety disorder (Primary Dx); Panic disorder; Adjustment disorder with mixed anxiety and depressed mood Discharge Disposition: Discharged to home or Selfcare 10/09/2024 Travel 09/19/2024 9:30 AM ASSOCIATE MERCHANT Telemedicine [facility] [address] [place] [address] Justyn Miranda LCSW Generalized anxiety disorder (Primary Dx); Panic disorder; Adjustment disorder with mixed anxiety and depressed mood Discharge Disposition: Discharged to home or Selfcare 09/19/2024 Behavioral Health [facility] [address] [place] [address] Justyn Miranda LCSW 09/19/2024 Travel from Last [...] 12/20/2024 9:30 AM CDT Telemedicine [facility] Services 1 [place] [address] Justyn Miranda, HEALTH SCIENCES DEPARTMENT CHAIR [address] [place] [address] Discharge Disposition: Discharged to home or Selfcare [...] with family members Insurance MEDICARE C AETNA [employer] MEDICARE Care Teams Thread Spooler Relationship Specialty Start Date End Date Milly Celaya, POWER SYSTEMS ENGINEER, RESIDENTIAL MANAGER [address] [place] [address] PCP - General Obstetrics & Gynecology 05/23/18 [place] [address] Psychiatry 03/16/18
--- OUTSIDE RECORDS SUMMARY | 2024-12-10 17:39 | XMS_ITS | Encounter Summary ---
Author Organization [facility] Address [address] [facility] [place] [place] [address] Phone Care Team Providers Care Hooker Operator Name Role Phone Wilian Sultana MD Unavailable Darnell Bryant MD Unavailable Milly Celaya APRN, RESIDENT CARE SUPERVISOR Primary Care Provider Unavailable Encounter Details Date Type Department Care Team (Late st Contact Info) Description 02/02/2023 Behavioral Health [facility] 1 [place] [address] Justyn Miranda, [facility] [address] [place] [address] Social History Tobacco Use Types Packs/Day Years [...] Info) Description 12/20/2024 9:30 AM CDT Telemedicine [facility] Services [address] [place] [address] Justyn Miranda LCSW [address] [place] [address] Discharge Disposition: Discharged to home or Selfcare [...] Ready to change Department associated with goal: [facility] Steps to [...] Ready to change Department associated with goal: [facility] Steps to [...] documented as of this encounter Care Teams Hooker Operator Relationship Specialty Start Date End Date Milly Celaya, COMPUTER OPERATIONS SUPERVISOR, RESIDENT CARE SUPERVISOR [address] [place] [address] PCP - General Obstetrics & Gynecology 05/23/18 Wilian Sultana MD Consulting Physician Neurology 08/11/16 06/24/24 Darnell Bryant MD [address] [place] [address] Psychiatry 03/16/18 documented as of this encounter
--- OUTSIDE RECORDS SUMMARY | 2024-12-10 17:39 | XMS_ITS | Encounter Summary ---
Author Organization [facility] Address [address] [facility] [place] [address] Phone Care Team Providers Care Program Associate Name Role Phone Darnell Bryant MD Unavailable Milly Celaya APRN, HEAVY TRUCK MECHANIC Primary Care Provider Unavailable Encounter Details Date Type Department Care Team (Late st Contact Info) Description 09/19/2024 Behavioral Health [facility] 1 [place] [address] Justyn Miranda, ACCESS CONTROL SPECIALIST [address] [place] [address] Social History Tobacco Use Types Packs/Day Years [...] Info) Description 12/20/2024 9:30 AM CDT [facility]medicine [facility] 1 [place] [address] Justyn Miranda, ACCESS CONTROL SPECIALIST [address] [place] [address] Discharge Disposition: Discharged to home or Selfcare [...] Ready to change Department associated with goal: [facility] Steps [...] Ready to change Department associated with goal: [facility] Steps [...] documented as of this encounter Care Teams Program Associate Relationship Specialty Start Date End Date Milly Celaya, CARPET WINDER, HEAVY TRUCK MECHANIC [address] [place] [address] PCP - General Obstetrics & Gynecology 05/23/18 Darnell Bryant MD [address] [place] [address] Psychiatry 03/16/18 documented as of this encounter
--- OUTSIDE RECORDS SUMMARY | 2024-12-10 17:39 | XMS_ITS | Clinical Summary ---
Author Organization [facility] Address [address] [facility] [place] [address] Care Team Providers Care Organ Assembler Name Role Phone Renetta Sarabia MD Primary [...] tongue Continuous as needed. 09/29/19 19 Active Isaban-3 Fatty Acids 1,000 mg Capsule Take 1 [...] by mouth. Active naloxone (NARCAN) 4 mg/spray [place], Non-Aerosol EMERGENCY USE ONLY: Administer 1 spray [...] Comments Blood Pressure 121/77 07/19/2024 3:24 PM MICROGRINDER OPERATOR Pulse 75 07/19/2024 3:24 PM MICROGRINDER OPERATOR Temperature 36.1 C (97 F) 07/19/2024 3:24 PM MICROGRINDER OPERATOR Respiratory Rate 16 07/19/2024 3:24 PM MICROGRINDER OPERATOR Oxygen Saturation 96% 07/19/2024 3:24 PM MICROGRINDER OPERATOR Inhaled Oxygen Concentration - - Weight 70.8 kg (156 lb) 07/19/2024 3:24 PM MICROGRINDER OPERATOR Height 167.6 cm (5' 6 ) 07/08/2021 9:25 AM MICROGRINDER OPERATOR Body Mass Index 25.18 07/08/2021 9:25 AM MICROGRINDER OPERATOR Plan of Treatment Upcoming Encounters Date Type Department Care Team (Late st Contact Info) Description 07/22/2025 1:00 PM MICROGRINDER OPERATOR Office Visit [facility]] Oncology and Hematology - [place] [address] [place] [address] Leon Oneill MD [address] [facility] [address] [place] [address] Health Maintenance Due Date Last Done Comments DTAP/TDAP/TD VACCINES (1 - Tdap) 1969 ZOSTER VACCINE (1 of 2) 1969 PNEUMOCOCCAL VACCINE 50+ YEA RS (2 of 2 - PPSV23) 11/03/2020 09/08/2020, 07/17/2020 OSTEOPOROSIS SCREENING 11/18/2021 11/18/2016 RSV VACCINE (60+ or ) (1 - 1-dose 75+ series) 2023 INFLUENZA VACCINE (#1) 2024 05/22/2020 Preventative Visit- Commercial 08/08/2024 Insurance [place] PPO [place] P[employer] Care Teams Organ Assembler Relationship Specialty Start Date End Date Renetta Sarabia MD PCP - General Family Practice 12/21/19
--- OUTSIDE RECORDS SUMMARY | 2024-12-10 17:39 | XMS_ITS | Encounter Summary ---
Author Organization [facility] Address [address] [facility] [place] [address] Phone Care Team Providers Care Precision Honing Machine Operator Name Role Phone Wilian Sultana MD Unavailable [phone] Darnell Bryant MD Unavailable Milly Celaya APRN, BEVERAGE DISTILLER Primary Care Provider Unavailable Encounter Details Date Type Department Care Team (Late st Contact Info) Description 05/25/2023 Behavioral Health [facility] 1 [place] [address] Justyn Miranda, [facility] [address] [place] [address] Social History Tobacco Use Types Packs/Day Years [...] Behavioral Health Services [address] [place] [address] Justyn Miranda LCSW [address] [place] [address] Discharge Disposition: Discharged to home or Selfcare [...] documented as of this encounter Care Teams Precision Honing Machine Operator Relationship Specialty Start Date End Date Milly Celaya, WET CHAR CONVEYOR TENDER, BEVERAGE DISTILLER [address] [place] [address] PCP - General Obstetrics & Gynecology 05/23/18 Wilian Sultana MD Consulting Physician Neurology 08/11/16 06/24/24 Darnell Bryant MD [address] [place] [address] Psychiatry 03/16/18 documented as of this encounter
--- OUTSIDE RECORDS SUMMARY | 2024-12-10 17:39 | XMS_ITS | Encounter Summary ---
Author Organization [facility] Address [address] [facility] [place] [address] Phone Care Team Providers Care Paraprofessional Interpreter Name Role Phone Wilian Sultana MD Unavailable Darnell Bryant MD Unavailable Milly Celaya APRN, WRINGER AND SETTER Primary Care Provider Unavailable Encounter Details Date Type Department Care Team (Late st Contact Info) Description 03/11/2023 Behavioral Health [facility] 1 [place] [address] Justyn Miranda, [facility] [address] [place] [address] Social History Tobacco Use Types Packs/Day Years [...] Info) Description 12/20/2024 9:30 AM CDT Telemedicine [facility] Behavioral Health Services [address] [place] [address] Justyn Miranda LCSW [address] [place] [address] Discharge Disposition: Discharged to home or Selfcare [...] documented as of this encounter Care Teams Paraprofessional Interpreter Relationship Specialty Start Date End Date Milly Celaya, GINGER FARMER, WRINGER AND SETTER [address] [place] [address] PCP - General Obstetrics & Gynecology 05/23/18 Wilian Sultana MD Consulting Physician Neurology 08/11/16 06/24/24 Darnell Bryant MD [address] [place] [address] Psychiatry 03/16/18 documented as of this encounter
--- OUTSIDE RECORDS SUMMARY | 2024-12-10 17:39 | XMS_ITS | Encounter Summary ---
Author Organization [facility] Address [address] [facility] [place] [address] Phone Care Team Providers Care Scrap Materials Buyer Name Role Phone Wilian Sultana MD Unavailable Darnell Bryant MD Unavailable Milly Celaya APRN, WINDOW GLAZIER Primary Care Provider Unavailable Encounter Details Date Type Department Care Team (Late st Contact Info) Description 08/31/2023 [facility] 1 [place] [address] Justyn Miranda, GRADES 1 THRU 6 VISITING TEACHER [address] [place] [address] Social History Tobacco Use Types Packs/Day Years [...] Info) Description 12/20/2024 9:30 AM CDT [facility] 1 [place] [address] Justyn Miranda LCSW [address] [place] [address] Discharge Disposition: Discharged to home or Selfcare [...] Department associated with goal: [facility] Steps to achieve goal: [...] Department associated with goal: [facility] Steps to achieve goal: [...] documented as of this encounter Care Teams Scrap Materials Buyer Relationship Specialty Start Date End Date Milly Celaya, SUPERVISOR [place], WINDOW GLAZIER [address] [facility] [address] PCP - General Obstetrics & Gynecology 05/23/18 Wilian Sultana MD Consulting Physician Neurology 08/11/16 06/24/24 Darnell Bryant MD [address] [place] [address] Psychiatry 03/16/18 documented as of this encounter
[2024-12-10 17:55] LABS: Add Urine Microscopic? YES; Appearance Urine Clear (Clear); Bacteria Urine None Seen /hpf; Bilirubin Urine Negative (Negative); Blood Urine Trace (Negative); Color Urine Yellow (Yellow); Glucose Urine UA 3+ mg/dL (Negative); Ketones Urine Negative (Negative); Leukocyte Esterase Ur Negative LEU/UL (Negative); Nitrate Urine Negative (Negative); Non Pathogenic Casts 0-2; Protein Urine Negative (Negative); RBC Urine 0-2 /hpf (0-2); Squamous Epithelial Cell Urine None Seen /hpf (Few); Urobilinogen Urine 0.2 mg/dL (<2.0); WBC Urine 0-5 /hpf (0-3); pH Urine 6.5 (5.0-9.0)
--- NOTE | 2024-12-10 17:57 | ECG_ITS ---
Test Date: 2024-12-10 18:31:06 Measurements Intervals [place] Rate: 72 P: 11 [place]: 173 QRS: -2 QRSD: 90 T: 34 QT: 396 QTc: 435 Interpretive Statements SINUS RHYTHM [address] DEVIATION AND MODERATE T-WAVE ABNORMALITY, CONSIDER ANTERIOR ISCHEMIA [-0.1+ mV T WAVE IN V3/V4] No previous ECG available for comparison Electronically Signed On 12-11-2024 14:17:40 CDT by Chase Ace M.D.
[2024-12-10] MEDS: SODIUM CHLORIDE 0.9% IV 1,000 ML 999 ML IV CONT (18:02)
[2024-12-10] MEDS: fentaNYL CITRATE INJ (*CRX) 100 MCG/2 ML VIAL 25 MCG IV PUSH ×2 (18:33→20:34)
--- NOTE | 2024-12-10 19:19 | PC.NURSE ---
Fluids still flowing at this time.
--- NOTE | 2024-12-10 20:48 | PC.NURSE ---
Pt tolerated ambulation well. No dizziness noted.
[2024-12-10] MEDS: metroNIDAZOLE 500 MG TABLET PO (22:08)
[2024-12-10] MEDS: CIPROFLOXACIN 500 MG TAB PO (22:08)
== END 2024-12-10 22:19 | disposition home or self-care (01) ==
PROVIDERS: Physician Assistant; Emergency Provider Physician Assistant; PCP Family Medicine
DX: K57.32 Diverticulitis of large intestine without perforation or abscess without bleeding (principal); E86.0 Dehydration; E11.22 Type 2 diabetes mellitus with diabetic chronic kidney disease; I12.9 Hypertensive chronic kidney disease with stage 1 through stage 4 chronic kidney disease, or unspecified chronic kidney disease; N18.30 Chronic kidney disease, stage 3 unspecified; I35.0 Nonrheumatic aortic (valve) stenosis; K58.9 Irritable bowel syndrome, unspecified; K21.9 Gastro-esophageal reflux disease without esophagitis; L40.50 Arthropathic psoriasis, unspecified; F43.10 Post-traumatic stress disorder, unspecified; F41.9 Anxiety disorder, unspecified; Z86.16 Personal history of COVID-19; Z90.49 Acquired absence of other specified parts of digestive tract; Z90.710 Acquired absence of both cervix and uterus; Z77.22 Contact with and (suspected) exposure to environmental tobacco smoke (acute) (chronic); R94.31 Abnormal electrocardiogram [ECG] [EKG]; Z79.82 Long term (current) use of aspirin; Z79.84 Long term (current) use of oral hypoglycemic drugs; Z79.899 Other long term (current) drug therapy
CPT/HCPCS: 36415; 74176; 80053; 81001; 83605; 83690; 85025; 93005; 96361; 96374; 96376; 99284; A9270; J3010; J7030

== ENCOUNTER 2025-04-11 07:54 | Outpatient (CLI) | payer OTHER, MEDICARE, SELFPAY ==
--- OUTSIDE RECORDS SUMMARY | 2009-09-05 05:00 | XMS_ITS | Continuity of Care Document ---
Author Organization [facility] Address [address] [place] [address] [place] [address] Phone Care Team Providers Care Estate Attorney Name Role Phone Marcus Redmond Unavailable Unavailable [...] [facility], [address] [place] [address] [address], [place], [place], [id number], [place] tel:[phone] [facility] [place] No Information 9-201 0 Nyla Velazquez. [address] [facility] [place] , [address], [place], [place], [facility], [place]. tel:[phone] Office/outpat ient Visit, [facility], [address] [place] [address] [address], [place], [place], [id number], [place] tel:[phone] [facility] [place] No Information 1-200 9 Hali Barahona. [address] [facility] [place] , [address], [place], [address], [place]. tel:[phone] Office/outpat ient Visit, [facility], [address] [place] [address] [address], [place], [place], [id number], [place] tel:[phone] [facility] [place] No Information May-0 7-200 9 Lal Brooklyn. [address], [place], [facility], . tel:[phone] Office/outpat ient Visit, Est [facility], [address] [place] [address] [address], [place], [place], [id number], [place] tel:[phone] [facility] [place] No Information Apr-2 7-200 9 Trey Grimaldohil. [address], [place], [facility], . tel:[phone] [facility], [id number] [place] [address] [address], [place], [place], [id number], tel:[phone] [facility] [place] No Information Nov-2 3-200 9 Hali Barahona. [address], [place], [facility], . tel:[phone] [facility], [address] [place] [address] [address], [place], [place], [id number], tel:[phone] [facility] [place] No Information Ish-2 0-200 9 Hall OD Darnell. [address] , [address], [place], [facility], [place]. tel:[phone] [facility], [address] [place] [address] [address], [place], [place], [id number], [place] tel:[phone] [facility] No Information Feb-2 8-200 7 Hall OD Darnell. [address], [place], [place], [facility], . tel:[phone] Family History Family Member Type Diagnosis Age At Onset No Information Payers Payer name Insurance type Covered alliance party ID Authoriza tion(s) No Information Social [...]
--- OUTSIDE RECORDS SUMMARY | 2025-04-11 08:00 | XMS_ITS | Clinical Summary ---
Author Organization [facility] Address [address] [place] [address] Care Team Providers Care Vocational Auto Body Instructor Name Role Phone Sraa Vela MD Primary Care Provider Source Comments [facility],non-owned Affiliates and Associated Physician Practices is amultiple site organization consisting of ambulatory clinics and hospital sitesin [place], [place], [place] and [place]. This disclosure is being madepursuant to the Care Everywhere program and may not contain all information available regarding this patient. Last updated 18.[facility] Allergies Active Allergy Reactions Criticality Noted Date [...] on file Legal Sex Female 1:35 PM SLIP COVER MAKER Gender Identity Not on file Sexual Orientation Not on file Last Filed Vital Signs Vital Sign Reading Time Taken Comments Blood Pressure 112/62 06/23/2017 4:02 PM SLIP COVER MAKER Pulse 55 06/23/2017 4:02 PM SLIP COVER MAKER Temperature 36.8 C (98.2 F) 06/23/2017 4:02 PM SLIP COVER MAKER Respiratory Rate 16 06/23/2017 4:02 PM SLIP COVER MAKER Oxygen Saturation - - Inhaled Oxygen Concentration - - Weight 67.1 kg (148 lb) 06/23/2017 4:02 PM SLIP COVER MAKER Height 157.5 cm (5' 2) 06/23/2017 4:02 PM SLIP COVER MAKER Body Mass Index 27.07 06/23/2017 4:02 PM SLIP COVER MAKER Plan of Treatment Health Maintenance Due Date [...] MEDICARE AWV CALENDAR YEAR 2024 INFLUENZA VACCINE (#1) 2025 HEPATITIS B VACCINE Aged Out No [...] AETNA MEDICARE ADV HEALTHLINK AETNA MEDICARE ADV C[employer] Marketing AETNA MEDICARE ADV Care Teams Vocational Auto Body Instructor Relationship Specialty Start Date End Date Sara Vela MD [address] [place] [address] PCP - General 12/06/22
--- OUTSIDE RECORDS SUMMARY | 2025-04-11 08:00 | XMS_ITS | Encounter Summary ---
Author Organization [facility] Address [address] [facility] [place] [address] Phone Care Team Providers Care Business Development Manager Name Role Phone Wilian Sultana MD Unavailable [phone] Darnell Bryant MD Unavailable Milly Celaya APRN, STRIP STAMP STRAIGHTENER Primary Care Provider Unavailable Encounter Details Date Type Department Care Team (Late st Contact Info) Description 05/25/2023 Behavioral Health [facility] Services 1 [place] [address] Justyn Miranda, [facility] [address] [place] [address] Social History Tobacco Use Types Packs/Day Years [...] Care Team (Late st Contact Info) Description 04/29/2025 10:30 AM CDT Telemedicine [facility] Behavioral Health Services [address] [place] [address] Justyn Miranda LCSW [address] [place] [address] documented as of this encounter Goals Goal Patient Goal Type Associated Problems Recent Progress Patient-Stated? Author I need to be able to cope better with my grief and bitterness towards my family within the next six months Behavioral Health On track(2024 9:05 AM CDT) Yes Justyn Miranda, CHRISTIANO Note: Goal Reviewed today with: patient Readiness to change: Ready to change Department associated with goal: [facility] BEHAVIORAL HEALTH SERVICES Steps to achieve goal: Patient to be counseled on coping with grief, during her 45 min individual therapy sessions, 2-3 times per month Patient to be counseled on aspects of healthy self-care, during her 45 min individual sessions, 2-3 times per month Behavioral Health Behavioral Health On track(2024 9:05 AM CDT) No Justyn Miranda LCSW Note: Goal: Patient will be able to report improved mood/coping ability for family stressors/discord, to an acceptable level within the next six months Goal Reviewed today with: patient Readiness to change: Ready to change Department associated with goal: [facility] BEHAVIORAL HE[facility] SERVICES Steps to [...] documented as of this encounter Care Teams Business Development Manager Relationship Specialty Start Date End Date Milly Celaya, BOAT AND PLANT UTILITY SUPERVISOR, STRIP STAMP STRAIGHTENER [address] [place] [address] PCP - General Obstetrics & Gynecology 05/23/18 Wilian Sultana MD Consulting Physician Neurology 08/11/16 06/24/24 [facility] [address] Psychiatry 03/16/18 documented as of this encounter
--- OUTSIDE RECORDS SUMMARY | 2025-04-11 08:00 | XMS_ITS | Encounter Summary ---
Author Organization [facility] Address [address] [place] [facility] [place] [address] Phone Care Team Providers Care Supervisor Cook Room Name Role Phone Wilian Sultana MD Unavailable Darnell Bryant MD Unavailable Milly Celaya APRN, PERSONAL CARE WORKER Primary Care Provider Unavailable Encounter Details Date Type Department Care Team (Late st Contact Info) Description 02/02/2023 Behavioral Health [facility] Health Services 1 [place] [address] Justyn Miranda, [facility] [address] [place] [address] Social History Tobacco Use Types Packs/Day Years [...] Info) Description 04/29/2025 10:[address] [facility] Behavioral Health Services [address] [place] [address] Justyn Miranda LCSW #[address] [place] [address] documented as of this encounter Goals Goal [...] Ready to change Department associated with goal: [facility] BEHAVIORAL HEALTH SERVICES Steps to achieve [...] Ready to change Department associated with goal: [facility] BEHAVIORAL HEALTH SERVICES Steps to achieve [...] as of this encounter Care Teams Supervisor Cook Room Relationship Specialty Start Date End Date Milly Celaya, HAM FACER, PERSONAL CARE WORKER [address] [place] [address] PCP - General Obstetrics & Gynecology 05/23/18 Wilian Sultana MD Consulting Physician Neurology 08/11/16 06/24/24 Darnell [facility] [place] [address] Psychiatry 03/16/18 documented as of this encounter
--- OUTSIDE RECORDS SUMMARY | 2025-04-11 08:00 | XMS_ITS | Encounter Summary ---
Author Organization [facility] Address [address] [facility] [address] Phone Care Team Providers Care Brass Plater Name Role Phone Wilian Sultana MD Unavailable Darnell Bryant MD Unavailable Milly Celaya APRN, STRIPE MARKER Primary Care Provider Unavailable Encounter Details Date Type Department Care Team (Late st Contact Info) Description 03/11/2023 Behavioral Health [facility] Behavioral Health Services 1 [place] [address] Justyn Miranda, [facility] [address] [place] [address] Social History Tobacco Use Types Packs/Day Years [...] Info) Description 04/29/2025 10:30 AM CDT Telemedicine [facility] Behavioral Health Services [address] [place] [address] Justyn Miranda LCSW [address] [place] [address] documented as of this encounter Goals Goal [...] documented as of this encounter Care Teams Brass Plater Relationship Specialty Start Date End Date Milly Celaya, FREELANCE PATTERNMAKER, STRIPE MARKER [address] [place] [address] PCP - General Obstetrics & Gynecology 05/23/18 Wilian Sultana MD Consulting Physician Neurology 08/11/16 06/24/24 [facility]ell [facility] [place] [address] Psychiatry 03/16/18 documented as of this encounter
--- OUTSIDE RECORDS SUMMARY | 2025-04-11 08:01 | XMS_ITS | Encounter Summary ---
Author Organization [facility] Address [address] [place] [address] Care Team Providers Care Township Supervisor Name Role Phone Renetta Sarabia MD Primary Care Provider Reason for Visit * Reason Onset Date Comments lab orders 07/13/2022 Encounter Details Date Type Department Care Team (Late st Contact Info) Description 07/13/2022 Telephone [facility] Oncology and Hematology - [place] [address] [place] [address] [address] [place] [address] Leon nOeill MD [address] [facility] [address] [place] [address] lab orders Social History Tobacco [...] Renetta Faith RN - 07/13/2022 10:28 AM ARMORED CAR MESSENGER No labs ordered for this patient at last visit. 1 year F/U. I pended CBC, CMP, Immunoglobulins. Please add any other orders needed. RED CAR MESSENGER documented in this encounter Plan of Treatment Upcoming Encounters Date Type Department Care Team (Late st Contact Info) Description 07/22/2025 1:00 PM ARMORED CAR MESSENGER Office Visit [facility] Oncology and Hematology - [place] [address] [facility] [address] [place] [address] Leon Oneill MD [address] [facility] [address] [place] [address] documented as of this encounter Visit Diagnoses Diagnosis Hypogammaglobulinemia- Primary Hypogammaglobulinaemia, unspecified documented in this encounter Care Teams Township Supervisor Relationship Specialty Start Date End Date Renetta Sarabia MD PCP - General Family Practice 12/21/19 documented as of this encounter
--- OUTSIDE RECORDS SUMMARY | 2025-04-11 08:01 | XMS_ITS | Encounter Summary ---
Author Organization [facility] Address [address] [place] [address] Care Team Providers Care Roofing Superintendent Name Role Phone Augustin Goodson MD Unavailable [phone] Leon Oneill MD Unavailable [phone] Rick Rivas MD Unavailable Wilian Sultana MD Unavailable [phone] Renetta Sarabia MD Unavailable [phone] Sara Vela MD Primary Care Provider Prudence Gaines MD Unavailable [phone] Encounter Details Date Type Department Care Team (Late st Contact Info) Description 12/17/2024 Telephone [facility] [address] [facility] [address] [place] [address] Altagracia Laura MD PhD [address] [facility] [phone] [place] [address] Social History Tobacco Use Types Packs/Day Years [...] on file Legal Sex Female 7:06 AM COMPENSATOR Gender Identity Female 06/12/2021 1:30 PM CDT Sexual Orientation Not on file documented as of this encounter Plan of Treatment Not on file documented as of this encounter Goals Goal Patient Goal Type Associated Problems Recent Progress Patient-Stated? Author CCM Chronic Pain Care Plan Chronic Care Management No change(03/05 11:03 AM CDT) No Jose M Keys, RAJNI Note: Problem: Chronic Pain Goals: 1. Minimize further functional decline 2. Maximize quality of life 3. Control pain Strategies: - Activity/exercise program recommendation - Conservative stepwise pain medicine strategy with multi-disciplinary approach - Recommend healthy lifestyle strategies and compensatory methods as needed documented as of this encounter Visit Diagnoses Not on filedocumented in this encounter Care Teams Roofing Superintendent Relationship Specialty Start Date End Date Sara Vela MD [address] [facility] [address] [place] [address] PCP - General Family Practice 02/27/24 Augustin Goodson MD Referring Physician Nephrology 03/07/18 Leon Oneill MD [address] [place] [address] Referring Physician Hematology 03/07/18 Rick Rivas MD [address] [place] [address] Referring Physician Rheumatology 03/07/18 Wilian Sultana MD [address] [place] [address] Referring Physician Neurology 03/07/18 Renetta Sarabia MD [address] [place] [address] Referring Physician Family Practice 12/27/19 Prudence Gaines MD [address] [place] [address] Referring Physician Plastic Surgery 04/05/24 documented as of this encounter
--- OUTSIDE RECORDS SUMMARY | 2025-04-11 08:02 | XMS_ITS | Encounter Summary ---
Author Organization [facility] Address [address] [facility] [place] [address] Phone Care Team Providers Care Healthcare Science Specialist Name Role Phone Darnell Bryant MD Unavailable Milly Celaya APRN, OUTSOLE CASER Primary Care Provider Unavailable Encounter Details Date Type Department Care Team (Late st Contact Info) Description 09/19/2024 [facility] 1 [place] [address] Justyn Miranda, ULTRASOUND SPEC [address] [place] [address] Social History Tobacco Use Types Packs/Day Years [...] Info) Description 04/29/2025 10:30 AM CDT [facility] 1 [place] [address] Justyn Miranda, ULTRASOUND SPEC [address] [place] [address] documented as of this encounter Goals Goal [...] Ready to change Department associated with goal: [facility] BEHAVIORAL HEALTH SERVICES Steps to achieve goal: Patient to be counseled on coping with grief, during her 45 min individual therapy sessions, 2-3 times per month Patient to be counseled on aspects of healthy self-care, during her 45 min individual sessions, 2-3 times per month Behavioral Health Behavioral Health On track(2024 9:05 AM CDT) No Justyn Miranda, CHRISTIANO Note: Goal: Patient will be able to report improved mood/coping ability for family stressors/discord, to an acceptable level within the next six months Goal Reviewed today with: patient Readiness to change: Ready to change Department associated with goal: [facility] BEHAVIORAL HEALTH SERVICES Steps to [...] documented as of this encounter Care Teams Healthcare Science Specialist Relationship Specialty Start Date End Date Milly eClaya, FELT HAT POUNCING OPERATOR HAND, OUTSOLE CASER [address] [address] PCP - General Obstetrics & Gynecology 05/23/18 Darnell Bryant MD [address] [address] Psychiatry 03/16/18 documented as of this encounter
--- OUTSIDE RECORDS SUMMARY | 2025-04-11 08:02 | XMS_ITS | Encounter Summary ---
Author Organization [facility] Address [address] [facility] [place] [address] Phone Care Team Providers Care Competency Evaluated Nurse Aide Name Role Phone Wilian Sultana MD Unavailable Darnell Bryant MD Unavailable Milly Celaya APRN, FIRM ADMINISTRATOR Primary Care Provider Unavailable Encounter Details Date Type Department Care Team (Late st Contact Info) Description 05/22/2024 [facility] 1 [place] [address] Justyn Miranda, FORESTRY CONSERVATION WORKER [address] [place] [address] Social History Tobacco Use Types Packs/Day Years [...] Info) Description 04/29/2025 10:30 AM CDT [facility] 1 [place] [address] Justyn Miranda LCSW [address] [place] [address] documented as of this encounter Goals Goal Patient Goal Type Associated Problems Recent Progress Patient-Stated? Author I need to be able to cope better with my grief and bitterness towards my family within the next six months Behavioral Health On track(2024 9:05 AM CDT) Yes Justyn Miranda LCSW Note: [...] documented as of this encounter Care Teams Competency Evaluated Nurse Aide Relationship Specialty Start Date End Date Milly Celaya, UPHOLSTERY AUTO TRIMMER, FIRM ADMINISTR[place] [address] PCP - General Obstetrics & Gynecology 05/23/18 Wilian Sultana MD Consulting Physician Neurology 08/11/16 06/24/24 Darnell Bryant MD [address] [place] [address] Psychiatry 03/16/18 documented as of this encounter
--- OUTSIDE RECORDS SUMMARY | 2025-04-11 08:02 | XMS_ITS | Encounter Summary ---
Author Organization [facility] Address [address] [place] [address] [facility] [place] [address] Phone Care Team Providers Care Hims Coder Name Role Phone Wilian Sultana MD Unavailable Darnell Bryant MD Unavailable Milly Celaya APRN, BARREL CUTTER Primary Care Provider Unavailable Encounter Details Date Type Department Care Team (Late st Contact Info) Description 04/05/2024 Behavioral Health [facility] 1 [place] [address] Justyn Miranda, SCIENCE INTERPRETER [address] [place] [address] Social History Tobacco Use Types Packs/Day Years [...] Info) Description 04/29/2025 10:30 AM CDT [facility] 1 [place] [address] Justyn Miranda LCSW [address] [place] [address] documented as of this encounter Goals Goal [...] documented as of this encounter Care Teams Hims Coder Relationship Specialty Start Date End Date Milly Celaya, CHEMICAL PLANT OPERATOR SUPERVISOR, BARREL [place] [address] PCP - General Obstetrics & Gynecology 05/23/18 Wilian Sultana MD Consulting Physician Neurology 08/11/16 06/24/24 Darnell Bryant MD [address] [place] [address] Psychiatry 03/16/18 documented as of this encounter
--- OUTSIDE RECORDS SUMMARY | 2025-04-11 08:02 | XMS_ITS | Encounter Summary ---
Author Organization [facility] Address [address] [place] [address] [facility] [place] [address] Phone Care Team Providers Care Head Coach Name Role Phone Darnell Bryant MD Unavailable Milly Celaya APRN, HEAD START TEACHER Primary Care Provider Unavailable Encounter Details Date Type Department Care Team (Late st Contact Info) Description 12/05/2024 Behavior[facility] 1 [place] [address] Justyn Miranda, MASSAGE COORDINATOR [address] [place] [address] Social History Tobacco Use Types Packs/Day Years [...] Info) Description 04/29/2025 10:30 AM CDT [facility] 1 [place] [address] Justyn Miranda, MASSAGE COORDINATOR [address] [place] [address] documented as of this encounter Goals Goal Patient Goal Type Associated Problems Recent Progress Patient-Stated? Author I need to be able to cope better with my grief and bitterness towards my family within the next six months Behavioral Health On track(2024 9:05 AM CDT) Yes uJstyn Miranda, CHRISTIANO Note: Goal Reviewed today with: [...] documented as of this encounter Care Teams Head Coach Relationship Specialty Start Date End Date Milly Celaya, STRUCTURAL IRON WORKER, HEAD START TEACHER [address] [address] PCP - General Obstetrics & Gynecology 05/23/18 Darnell Bryant MD [address] [address] Psychiatry 03/16/18 documented as of this encounter
--- OUTSIDE RECORDS SUMMARY | 2025-04-11 08:02 | XMS_ITS | Encounter Summary ---
Author Organization [facility] Address [address] [facility] [place] [address] Phone Care Team Providers Care Surgical Services Assistant Name Role Phone Wilian Sultana MD Unavailable [phone] Darnell Bryant MD Unavailable Milly Celaya APRN, COMMERCIAL LEASE ADMINISTRATOR Primary Care Provider Unavailable Encounter Details Date Type Department Care Team (Late st Contact Info) Description 12/20/2023 Behavioral Health [facility] 1 [place] [address] Justyn Miranda, REWRITE EDITOR [address] [place] [address] Social History Tobacco Use Types Packs/Day Years [...] Info) Description 04/29/2025 10:30 AM CDT [facility]medicine [facility] 1 [place] [address] Justyn Miranda LCSW [address] [place] [address] documented as of this encounter Goals Goal [...] Ready to change Department associated with goal: [facility] Steps to achieve [...] Ready to change Department associated with goal: [facility] Steps to achieve [...] documented as of this encounter Care Teams Surgical Services Assistant Relationship Specialty Start Date End Date Milyl Celaya, ENVIRONMENT FRIENDLY LANDSCAPE DESIGNER, COMMERCIAL LEASE ADMINISTR[place] [address] PCP - General Obstetrics & Gynecology 05/23/18 Wilian Sultana MD Consulting Physician Neurology 08/11/16 06/24/24 Darnell Bryant MD [address] [place] [address] Psychiatry 03/16/18 documented as of this encounter
--- OUTSIDE RECORDS SUMMARY | 2025-04-11 08:02 | XMS_ITS | Encounter Summary ---
Author Organization [facility] Address [address] [place] [address] [facility] [place] [address] Phone Care Team Providers Care Asbestos Pipe Supervisor Name Role Phone Darnell Bryant MD Unavailable Milly Celaya APRN, SALES CONSULTANT INSURANCE Primary Care Provider Unavailable Encounter Details Date Type Department Care Team (Late st Contact Info) Description 08/06/2024 Behavioral Health [facility] 1 [place] [address] Justyn Miranda, AMORTIZATION CLERK [address] [place] [address] Social History Tobacco Use Types Packs/Day Years [...] Info) Description 04/29/2025 10:30 AM CDT Telemed[facility] 1 [place] [address] Justyn Miranda, AMORTIZATION CLERK [address] [place] [address] documented as of this encounter Goals Goal [...] to change Department associated with goal: [facility] BEHAVIORAL HEALTH SERVICES Steps to [...] to change Department associated with goal: [facility] BEHAVIORAL HEALTH SERVICES Steps to [...] documented as of this encounter Care Teams Asbestos Pipe Supervisor Relationship Specialty Start Date End Date Milly Celaya, EDUCATION PROGRAM MANAGER, SALES CONSULTANT INSURANCE [address] [address] PCP - General Obstetrics & Gynecology 05/23/18 Darnell Bryant MD [address] [address] Psychiatry 03/16/18 documented as of this encounter
--- OUTSIDE RECORDS SUMMARY | 2025-04-11 08:02 | XMS_ITS | Encounter Summary ---
Author Organization [facility] Address [address] [place] [address] [facility] [place] [address] Phone Care Team Providers Care Movie Theater Usher Name Role Phone Wilian Sultana MD Unavailable Darnell Bryant MD Unavailable Milly Celaya APRN, THERMOSTAT REPAIRER Primary Care Provider Unavailable Encounter Details Date Type Department Care Team (Late st Contact Info) Description 03/05/2024 Behavioral Health [facility] 1 [place] [address] Justyn Miranda, FINANCIAL FOUNDATIONS ASSOCIATE [address] [place] [address] Social History Tobacco Use Types Packs/Day Years [...] Info) Description 04/29/2025 10:30 AM CDT [facility] 1 [place] [address] Justyn Miranda LCSW [address] [place] [address] documented as of this encounter Goals Goal [...] change Department associated with goal: [facility] BEHAVIORAL HEALTH SERVICES Steps to achieve [...] change Department associated with goal: [facility] BEHAVIORAL HEALTH SERVICES Steps to achieve [...] documented as of this encounter Care Teams Movie Theater Usher Relationship Specialty Start Date End Date Milly Celaya, DIRECTOR OF COLLECTIONS AND ARCHIVES, THERMOSTAT RE[place]IR[place] [address] PCP - General Obstetrics & Gynecology 05/23/18 Wilian Sultana MD Consulting Physician Neurology 08/11/16 06/24/24 Darnell Bryant MD [address] [address] Psychiatry 03/16/18 documented as of this encounter
--- OUTSIDE RECORDS SUMMARY | 2025-04-11 08:02 | XMS_ITS | Encounter Summary ---
Author Organization [facility] Address [address] [place] [address] [facility] [place] [address] Phone Care Team Providers Care Director Of Strategic Marketing Name Role Phone Darnell Bryant MD Unavailable Milly Celaya APRN, CONTENT STRATEGY LEAD Primary Care Provider Unavailable Encounter Details Date Type Department Care Team (Late Contact Info) Description 02/25/2025 Behavioral Health [facility] 1 [place] [address] Justyn Miranda, LOCAL HAZMAT DRIVER [address] [place] [address] Social History Tobacco Use Types Packs/Day Years [...] Info) Description 04/29/2025 10:30 AM CDT [facility] 1 [place] [address] Justyn Miranda, LOCAL HAZMAT DRIVER [address] [place] [address] documented as of this encounter Goals Goal [...] Ready to change Department associated with goal: [facility] BEHAVIORAL HEALTH SERVICES Steps to achieve [...] Ready to change Department associated with goal: [facility] BEHAVIORAL HEALTH SERVICES Steps to achieve [...] as of this encounter Care Teams Director Of Strategic Marketing Relationship Specialty Start Date End Date Milly Celaya, INFORMATION SPECIALIST, CONTENT STRATEGY LEAD [address] [address] PCP - General Obstetrics & Gynecology 05/23/18 Darnell Bryant MD [address] [address] Psychiatry 03/16/18 documented as of this encounter
--- OUTSIDE RECORDS SUMMARY | 2025-04-11 08:02 | XMS_ITS | Encounter Summary ---
Author Organization [facility] Healthcare Address [address] [place] [address] Care Team Providers Care Physiotherapist'S Assistant Name Role Phone Augustin Goodson MD Unavailable [phone] Leon Oneill MD Unavailable [phone] Rick Rivas MD Unavailable Wilian Sultana MD Unavailable [phone] Renetta Sarabia MD Unavailable [phone] Sara Vela MD Primary Care Provider Prudence Gaines MD Unavailable [phone] Reason for Visit * Reason Onset Date Comments spk w/nurse 03/13/2025 Encounter Details Date Type Department Care Team (Late st Contact Info) Description 03/13/2025 Telephone [facility] [place] [facility] [address] [facility] [address] [place], [place] [id number] Altagracia Laura MD PhD [address] [facility] [phone] [place], [place] [id number] spk w/nurse Social History Tobacco Use Types Packs/Day Years Used Date Smoking Tobacco: Never Cigarettes Smokeless Tobacco: Never Alcohol Use Standard Drinks/Week Comments No 0 (1 standard drink = 0.6 oz pur e alcohol) AUDIT-C Answer Date Recorded Q1: How often do you have a drink containing alcohol? Never 01/31/2025 Q2: How many drinks containi ng alcohol do you have on a typical day when you are drinking? Patient does not drink Q3: How often do you have si x or more drinks on one occasion? Never 01/31/2025 PHQ-2 Answer Date Recorded PHQ-2 Score 0 03/30/2019 Comments No Sex and Gender Information Value Date Recorded Sex Assigned at Not on file Legal Sex Female 7:06 AM JEWEL BEARING BROACHER Gender Identity Female 06/12/2021 1:30 PM CDT Sexual Orientation Not on file documented as of this encounter Miscellaneous Notes * Telephone Encounter - Tonia Galindo RN - 03/14/2025 8:55 AM CDT Left message for patient letting her know, at this time there is nothing we can do in order for herto see ortho. Since she is in litigation, it would be best to reach out to her trade mark attorney, and see if they have anyresources that can help her find an ortho doctor that will see her. documented in this encounter Plan of Treatment Not on file documented as of this encounter Goals Goal Patient Goal Type Associated Problems Recent Progress Patient-Stated? Author CCM Chronic Pain Care Plan Chronic Care Management No change(03/05 11:03 AM CDT) No Jose M Keys RN Note: Problem: Chronic Pain Goals: 1. Minimize further functional decline 2. Maximize quality of life 3. Control pain Strategies: - Activity/exercise program recommendation - Conservative stepwise pain medicine strategy with multi-disciplinary approach - Recommend healthy lifestyle strategies and compensatory methods as needed documented as of this encounter Visit Diagnoses Not on filedocumented in this encounter Care Teams Physiotherapist'S Assistant Relationship Specialty Start Date End Date Sara Vela MD [address] [place] [address] PCP - General Family Practice 02/27/24 Augustin Goodson MD Referring Physician Nephrology 03/07/18 Leon Oneill MD [address] [facility] [address] [place] [address] Referring Physician Hematology 03/07/18 Rick Rivas MD [address] [facility] [address] [place] [address] Referring Physician Rheumatology 03/07/18 Wilian Sultana MD 1 [facility] 3 [place] [address] Referring Physician Neurology 03/07/18 Renetta Sarabia MD 1 [facility] 3 [place] [address] Referring Physician Family Practice 12/27/19 Prudence Gaines MD [address] [facility] 22 [place] [address] Referring Physician Plastic Surgery 04/05/24 documented as of this encounter
--- OUTSIDE RECORDS SUMMARY | 2025-04-11 08:02 | XMS_ITS | Clinical Summary ---
Author Organization [facility] Address [address] [place] [address] Phone Care Team Providers Care Certified Caregiver Name Role Phone Sara Vela MD Primary Care Provider Allergies Active Allergy Reactions Criticality Noted Date Comments Amitriptyline Other (see comments) 08/31/2021 [place] drugged up a lot and felt strange [...] MG tablet 1 prn 0 7 Active [facility]-3 1000 MG capsule Take 1 capsule by [...] HERPES FLARE UP 1 Active nystatin (MYCOSTATIN) 345333 UNIT/ML suspension ADMININSTER (5ML) EVERY 6 HOURS 1/2 OF DOSE IN EACH SIDE OF THE MOUTH. 1 Active mirtazapine (REMERON) 15 MG tablet TAKE 1/2 (ONE-HALF) TABLET BY MOUTH TWICE DAILY 2 Active neomycin-polymy allie-hydrocortis one (CORTISPORIN) 3.5-96628-2 otic suspension INSTILL 4 DROPS INTO LEFT [...] on file Legal Sex Female 7:44 AM [facility] Gender Identity Not on file Sexual Orientation [...] 1:16 PM CDT Height 157.5 cm (5' 2) 03/08/2022 1:16 PM CDT Body Mass Index 31.46 03/08/2022 1:16 PM CDT Plan of Treatment Health Maintenance Due Date Last Done Comments Pneumococcal PPSV23/PCV13 65 + Years / Low and Medium Risk (2 of 3 - PCV20 or PCV21) 07/17/2021 07/17/2020 Influenza Vaccine (#1) 2025 05/22/2020 Insurance [employer] MEDICARE ADVANTAGE [employer] Care Teams Certified Caregiver Relationship Specialty Start Date End Date Sara Vela MD [address] [place] [address] PCP - General Internal Medicine 08/24/21
--- OUTSIDE RECORDS SUMMARY | 2025-04-11 08:02 | XMS_ITS | Clinical Summary ---
Author Organization [facility] Address [address] [facility] [place] [address] Care Team Providers Care Surveying Crew Rodman Name Role Phone Renetta Sarabia MD Primary [...] tongue Continuous as needed. 09/29/19 19 Active [place]-3 Fatty Acids 1,000 mg Capsule Take 1 [...] by mouth. Active naloxone (NARCAN) 4 mg/spray [place], Non-Aerosol EMERGENCY USE ONLY: Administer 1 spray [...] Encounters Date Type Department Care Team Description 03/27/2025 External Device Data [facility] ABSTRACTION Provider, Abstract 03/12/2025 External Device Data [facility] Provider, Abstract 02/20/2025 External Device Data [facility] Provider, Abstract 02/19/2025 External Device Data [facility] Provider, Abstract 01/29/2025 External Device Data [facility] Provider, Abstract 01/22/2025 External Device Data [facility] [place] Provider, Abstract [...] Comments Blood Pressure 121/77 07/19/2024 3:24 PM FUEL CELL TEST ENGINEER Pulse 75 07/19/2024 3:24 PM FUEL CELL TEST ENGINEER Temperature 36.1 C (97 F) 07/19/2024 3:24 PM FUEL CELL TEST ENGINEER Respiratory Rate 16 07/19/2024 3:24 PM FUEL CELL TEST ENGINEER Oxygen Saturation 96% 07/19/2024 3:24 PM FUEL CELL TEST ENGINEER Inhaled Oxygen Concentration - - Weight 70.8 kg (156 lb) 07/19/2024 3:24 PM FUEL CELL TEST ENGINEER Height 167.6 cm (5' 6) 07/08/2021 9:25 AM FUEL CELL TEST ENGINEER Body Mass Index 25.18 07/08/2021 9:25 AM FUEL CELL TEST ENGINEER Plan of Treatment Upcoming Encounters Date Type Department Care Team (Late st Contact Info) Description 07/22/2025 1:00 PM FUEL CELL TEST ENGINEER Office Visit [facility] Oncology and Hematology - [place] [address] [facility] [address] [place] [address] Leon Oneill MD [address] [facility] [address] [place] [address] Health Maintenance Due Date Last Done Comments DTAP/TDAP/TD VACCINES (1 - Tdap) 1969 ZOSTER VACCINE (1 of 2) 1969 PNEUMOCOCCAL VACCINE 50+ YEA RS (2 of 2 - PPSV23, PCV20, or PCV21) 11/03/2020 09/08/2020, 07/17/2020 OSTEOPOROSIS SCREENING 11/18/2021 11/18/2016 RSV VACCINE (60+ or ) (1 - 1-dose 75+ series) 2023 Preventative Visit- Commercial 08/08/2024 INFLUENZA VACCINE (#1) 2025 05/22/2020 [facility] Multigig PPO AETNA O [facility] Multigig PPO Care Teams Surveying Crew Rodman Relationship Specialty Start Date End Date Renetta Sarabia MD PCP - General Family Practice 12/21/19
--- OUTSIDE RECORDS SUMMARY | 2025-04-11 08:02 | XMS_ITS | Encounter Summary ---
Author Organization [facility] Address [address] [facility] [place] [address] Phone Care Team Providers Care Study Director Name Role Phone Wilian Sultana MD Unavailable Darnell Bryant MD Unavailable Milly Celaya APRN, ONION FARMER Primary Care Provider Unavailable Encounter Details Date Type Department Care Team (Late st Contact Info) Description 11/08/2023 Behavioral Health [facility] 1 [place] [address] Justyn Miranda, FIRESTOPPER TECHNICIAN [address] [place] [address] Social History Tobacco Use Types Packs/Day Years [...] Info) Description 04/29/2025 10:30 AM CDT Telemedicine [facility] [address] [place] [address] Justyn Miranda LCSW [address] [place] [address] documented as of this encounter Goals Goal [...] documented as of this encounter Care Teams Study Director Relationship Specialty Start Date End Date Milly Celaya, POST COMMANDER, [place]ION [place] [address] PCP - General Obstetrics & Gynecology 05/23/18 Wilian Sultana MD Consulting Physician Neurology 08/11/16 06/24/24 Darnell Bryant MD [address] [place] [address] Psychiatry 03/16/18 documented as of this encounter
--- OUTSIDE RECORDS SUMMARY | 2025-04-11 08:02 | XMS_ITS | Encounter Summary ---
Author Organization [facility] Address [address] [address] Care Team Providers Care Circuit Walker Name Role Phone Leon Chandler MD Primary Care Provider [phone] Leon Chandler MD Primary Care Provider [phone] Milly Celaya NP Primary Care Provider [phone] Augustin Goodson MD Unavailable [phone] Leon Oneill MD Unavailable [phone] Rick Rivas MD Unavailable Gin Toth MD Unavailable [phone] Wilian Sultana MD Unavailable [phone] No, Physician Primary Care Provider [phone] Renetta Sarabia MD Primary Care Provider [phone] Renetta Sarabia MD Unavailable [phone] Renetta Sarabia MD Primary Care Provider [phone] Sara Vela MD Primary Care Provider Prudence Gaines MD Unavailable [phone] Encounter Details Date Type Department Care Team (Late st Contact Info) Description 08/25/2016 Orders Only [facility] ProviderMitchell MD [address] [place] [address] Social History Tobacco Use Types Packs/Day Years Used Date Smoking Tobacco: Never Alcohol Use Standard Drinks/Week Comments No 0 (1 standard drink = 0.6 oz pur e alcohol) Comments Unknown Sex and Gender Information Value Date Recorded Sex Assigned at Not on file Legal Sex Female 7:06 AM COMMUNICATIONS ENGINEERING TECHNICIAN Gender Identity Female 06/12/2021 1:30 PM [...] on filedocumented in this encounter Care Teams Circuit Walker Relationship Specialty Start Date End Date Leon Chandler MD PCP - General 11/05/16 03/06/18 Leon Chandler MD PCP - General 02/25/14 11/04/16 Milly Celaya NP [address] [place] [address] PCP - General Family Medicine 03/07/18 11/08/19 No, Physician PCP - General 11/09/19 12/26/19 Renetta Sarabia MD PCP - General Family Practice 12/27/19 12/27/19 Renetta Sarabia MD PCP - General Family Practice 01/03/20 09/21/21 Sara Vela MD [address] [facility] 2 [place], [place] [id number] PCP - General Family Practice 02/27/24 Augustin Goodson MD [address] [place] [address] [address] [place] [address] Referring Physician Nephrology 03/07/18 Leon Oneill MD [address] [facility] 200 [place] [address] Referring Physician Hematology 03/07/18 Rick Rivas MD [address] [facility] [address] [place] [address] Referring Physician Rheumatology 03/07/18 Gin Toth MD [address] [facility] [address] [place] [address] Consulting Physician Cardiology 03/07/18 02/26/24 Wilian Sultana MD 1 [facility] 3 [place] [address] Referring Physician Neurology 03/07/18 Renetta Sarabia MD Referring Physician Family Practice 12/27/19 Prudence Gaines MD [address] [facility] 22 [place], [place] [address] Referring Physician Plastic Surgery 04/05/24 documented as of this encounter
--- OUTSIDE RECORDS SUMMARY | 2025-04-11 08:02 | XMS_ITS | Encounter Summary ---
Author Organization [facility] Address [address] [facility] [place] [address] Phone Care Team Providers Care Mobile Practice Lead Name Role Phone Wilian Sultana MD Unavailable [phone] Darnell Bryant MD Unavailable Milly Celaya APRN, FUSE COILER Primary Care Provider Unavailable Encounter Details Date Type Department Care Team (Late st Contact Info) Description 08/31/2023 [facility] [address] [place] [address] Justyn Miranda, INSPECTOR CHIEF [address] [place] [address] Social History Tobacco Use Types Packs/Day Years [...] Info) Description 04/29/2025 10:30 AM CDT Telemedicine [facility] 1 [place] [address] Justyn Miranda LCSW [address] [place] [address] documented as of this encounter Goals Goal [...] to change Department associated with goal: [facility] Steps to achieve goal: [...] to change Department associated with goal: [facility] Steps to achieve goal: [...] documented as of this encounter Care Teams Mobile Practice Lead Relationship Specialty Start Date End Date Milly Celaya, SEA SHELL GATHERER, FUSE [place] [address] PCP - General Obstetrics & Gynecology 05/23/18 Wilian Sultana MD Consulting Physician Neurology 08/11/16 06/24/24 Darnell Bryant MD [address] [place] [address] Psychiatry 03/16/18 documented as of this encounter
--- OUTSIDE RECORDS SUMMARY | 2025-04-11 08:02 | XMS_ITS | Encounter Summary ---
Author Organization [facility] Address [address] [facility] [place] [address] Phone Care Team Providers Care Stitching Machine Operator Name Role Phone Wilian Sultana MD Unavailable Darnell Bryant MD Unavailable Milly Celaya APRN, SCIENTIFIC ADVISOR Primary Care Provider Unavailable Encounter Details Date Type Department Care Team (Late st Contact Info) Description 06/22/2024 [facility] 1 [place] [address] Justyn Miranda, PLANISHING HAMMER OPERATOR [address] [place] [address] Social History Tobacco Use Types Packs/Day Years [...] Info) Description 04/29/2025 10:30 AM CDT [facility] 1 [place] [address] Justyn Miranda LCSW [address] [place] [address] documented as of this encounter Goals Goal [...] documented as of this encounter Care Teams Stitching Machine Operator Relationship Specialty Start Date End Date Milly Celaya, COURSE DEVELOPER, SCIENTIFIC [place] [address] PCP - General Obstetrics & Gynecology 05/23/18 Wilian Sultana MD Consulting Physician Neurology 08/11/16 06/24/24 Darnell Bryant MD [address] [place] [address] Psychiatry 03/16/18 documented as of this encounter
--- OUTSIDE RECORDS SUMMARY | 2025-04-11 08:02 | XMS_ITS | Encounter Summary ---
Author Organization [facility] Address [address] [place] [address] Phone Care Team Providers Care Skein Dyer Name Role Phone Wilian Sultana MD Unavailable Darnell Bryant MD Unavailable Milly Celaya APRN, LOGISTICS PLANNING MANAGER Primary Care Provider Unavailable Encounter Details Date Type Department Care Team (Late st Contact Info) Description 10/04/2023 [facility] 1 [place] [address] Justyn Miranda, DADO OPERATOR [address] [place] [address] Social History Tobacco Use Types Packs/Day Years [...] Info) Description 04/29/2025 10:30 AM CDT [facility] 1 [place] [address] Justyn Miranda LCSW [address] [place] [address] documented as of this encounter Goals Goal [...] change Department associated with goal: [facility] Steps to achieve [...] change Department associated with goal: [facility] Steps to achieve [...] documented as of this encounter Care Teams Skein Dyer Relationship Specialty Start Date End Date Milly Celaya, BAND SPLICER, LOGISTICS PLANNING [place]NA[place] [address] PCP - General Obstetrics & Gynecology 05/23/18 Wilian Sultana MD Consulting Physician Neurology 08/11/16 06/24/24 Darnell Bryant MD [address] [address] Psychiatry 03/16/18 documented as of this encounter
--- OUTSIDE RECORDS SUMMARY | 2025-04-11 08:02 | XMS_ITS | Clinical Summary ---
Author Organization [facility] Medical Office Building [facility] Address [address] [place] [address] Care Team Providers Care Corporate Treasury Analyst Name Role Phone Augustin Goodson MD Unavailable Leon Oneill MD Unavailable [phone] Rick Rivas MD Unavailable Wilian Sultana MD Unavailable [phone] Renetta Sarabia MD Unavailable [phone] Sara Vela MD Primary Care Provider Prudence Gaines MD Unavailable [phone] Allergies Active Allergy Reactions Criticality Noted Date Comments Adhesive Other (See comments),Rash High 08/31/2021 Says the EKG leads being left on her skin caused 3rd degree nova of the skin. Amitriptyline Other (See comments) 08/31/2021 [place] drugged up a lot and felt strange when on amitriptyline for migraines Hydromorphone Anaphylaxis High 01/21/2017 Hr dropped to 13 Hydromorphone (Bulk) Anaphylaxis High 01/21/2017 Hr dropped to 13 Iodine Anaphylaxis High 01/10/2025 Empagliflozin Fatigue Low 01/10/2025 Lamotrigine Hives,Urticaria Medium 11/15/2016 Levofloxacin Anaphylaxis High [...] ondansetron ODT (ZOFRAN-ODT) 4 mg disintegrating tablet Take 1 tablet (4 mg total) by mouth every 8 (eight) hours as needed 1 Active multivitamin with minerals tablet Take 1 tablet by mouth daily Active nitroglycerin (NITROSTAT) 0.4 mg SL tabletIndications: acute episode of anginal pain Place 1 tablet (0.4 mg total) under the tongue every 5 (five) minutes as needed for chest pain 25 tablet 11 2 Active cyclobenzaprine (FLEXERIL) 5 mg tablet Take 1 tablet (5 mg total) by mouth as needed for muscle spasms 4 Active acyclovir (ZOVIRAX) 400 mg tablet Take 1 tablet (400 mg total) by mouth every 4 (four) hours while awake Active dicyclomine (BENTYL) 10 mg capsule Take 1 capsule (10 mg total) by mouth 2 (two) times a day 5 Active famotidine (PEPCID) 20 mg tablet Take 1 tablet (20 mg total) by mouth 2 (two) times a day Active HYDROcodone-acetam inophen (NORCO) 10-325 mg per tablet Take 1 tablet by mouth 5 Active metoprolol XL (TOPROL-XL) 25 mg extended release tabletIndications: Palpitations Take 1 tablet by mouth twice daily 180 tablet 2 5 Active garlic tablet Take 1 tablet by mouth 2 (two) times a day Active TURMERIC ORAL Take 1 tablet by mouth daily Active predniSONE (DELTASONE) 5 mg tablet PLEASE SEE ATTACHED FOR DETAILED DIRECTIONS 5 Active SUMAtriptan (IMITREX) 50 mg tablet 1 tablet (50 mg total) Active Active Problems Problem Noted Date Diagnosed Date Tenosynovitis, de Quervain 03/05/2025 Contracture of palmar fascia (Dupuytren's) 03/05 Complex regional pain syndro me type 2 [...] 12/26/2018 Assessment & Plan (10/04/2018 9:33 PM GEOPHYSICAL DRAFTER): Rapid flu in office was negative as [...] Encounters Date Type Department Care Team Description 04/02/2025 10:30 AM CDT Therapy [facility] Medicine Physical Therapy [address] [place] [address] 6th [place] [address] [place] [address] Mimi Coelho, AVELINO Complex regional pain syndrome type 2 of right upper extremity (Primary Dx); Neuropathic pain; Right hand pain; Tenosynovitis, de Quervain 03/19/2025 12:30 PM CDT Therapy [facility] Physical Therapy [address] [place] [address] [place] [address] [place] [address] Aaliyah Koenig DPT Complex regional pain syndrome type 2 of right upper extremity (Primary Dx); Neuropathic pain; Right hand pain; Tenosynovitis, de Quervain 03/13/2025 Telephone [facility] at the [facility] Advanced Medicine [address] [place] [address] [place] [address] Altagracia Laura MD PhD spk w/nurse 03/11/2025 10:30 AM CDT Therapy [facility] Medicine Physical Therapy [address] [place] [address] [place] [address] Aaliyah Koenig DPT Complex regional pain syndrome type 2 of right upper extremity (Primary Dx); Neuropathic pain 03/08/2025 11:30 AM CDT Therapy [facility] Physical Therapy [address] [place] [address] 6th [place] [address] [place] [address] Aaliyah Koenig DPT Complex regional pain syndrome type 2 of right upper extremity (Primary Dx); Neuropathic pain; Right hand pain; Tenosynovitis, de Quervain 03/08/2025 Orders Only [facility] [address] [place] [address] Altagracia Laura MD PhD Tenosynovitis, de Quervain (Primary Dx); Contracture of palmar fascia (Dupuytren's) 03/05/2025 12:45 PM CDT Therapy [facility] Physical Therapy [facility] 14th [place] [address] [place] [address] Aaron Delgado, AVELINO Complex regional pain syndrome type 2 of right upper extremity (Primary Dx) 03/05/2025 10:23 AM CDT - 03/05/2025 11:59 PM CDT Hospital Encounter [facility] [address] [place] [address] Altagracia Laura MD PhD Tenosynovitisarslan Quervain (Primary Dx); Complex regional pain syndrome type 2 of right upper extremity; Contracture of palmar fascia (Dupuytren's) Discharge Disposition: Discharge to home or self care 03/01/2025 Telephone [facility] at the [facility] [address] [place] [address] Altagracia Laura MD PhD Pre Procedure 02/26/2025 10:30 AM CDT Therapy [facility] Medicine Physical Therapy [address] [place] [address] 6th [place] [address] [place] [address] Aaliyah Koenig DPT Complex regional pain syndrome type 2 of right upper extremity (Primary Dx); Neuropathic pain; Right hand pain; Tenosynovitis, de Quervain 02/18/2025 Telephone [facility] Medicine Physical Therapy [address] [place] [address] 6th [place] [address] [place] [address] Aaliyah Koenig DPT 02/13/2025 10:30 AM CDT Therapy [facility] Medicine Physical Therapy [address] [place] [address] 6th [place] [address] [place] [address] Aaliyah Koenig DPT Complex regional pain syndrome type 2 of right upper extremity (Primary Dx); Neuropathic pain; Right hand pain; Tenosynovitis, de Quervain 02/05/2025 9:30 AM CDT Therapy [facility] Physical Therapy [facility] 6th [place] [address] [place] [address] Aaliyah Koenig DPT Complex regional pain syndrome type 2 of right upper extremity; Neuropathic pain; Right hand pain; Tenosynovitis, de Quervain 01/31/2025 1:30 PM CDT Therapy [facility] Physical Therapy Pain Clinic [address] [place] [address] 14th [place] [address] [place] [address] Aaron Delgado DPT Complex regional pain syndrome type 2 of right upper extremity (Primary Dx) 01/31/2025 12:30 PM CDT - 01/31/2025 11:59 PM CDT Hospital Encounter [facility] at the [facility] Advanced Medicine [address] [place] [address] [address] [place] [address] Altagracia Laura MD PhD Complex regional pain syndrome type 2 of right upper extremity (Primary Dx); Neuropathic pain; Right hand pain; Tenosynovitis, de Quervain Discharge Disposition: Discharge to home or self care 01/29/2025 Telephone [facility] at the [facility] Advanced Medicine [address] [place] [address] [address] [place] [address] Altagracia Laura MD PhD PMC Preprocedure 01/10/2025 1:15 PM CDT Therapy [facility] Physical Therapy Pain Clinic [address] [place] [address] 14th [place] [address] [place] [address] Aaron Delgado DPT Complex regional pain syndrome type 2 of right upper extremity (Primary Dx) 01/10/2025 10:30 AM CDT - 01/10/2025 11:59 PM CDT Hospital Encounter [facility] at the [address] [place] [address] Altagracia Laura MD PhD Complex regional pain syndrome type 2 of right upper extremity Discharge Disposition: Discharge to home or self care 01/10/2025 Plan of Care Documentation [facility] Physical Therapy Pain Clinic [address] 14th [place] [address] [place] [address] from Last 3 Months Immunizations Immunization Administration Dates Next Due Influenza, Quad, Adjuvantated, Intramuscular Pneumococcal Conjugate PCV 13 07/17/2020 Surgical History Surgery Date Site/Laterality Comments CATARACT EXTRACTION HYSTERECTOMY Medical History Medical History Date Comments Hx Other Medical Parkinson's Dis ease ??? Hx Other Medical On [place] Anxiety disorder Anxiety Hx Other Medical Back Injury Arthritis Cataract Depression Migraines Hypertension Thyroid disease Ear problems Heart disease Chronic kidney disease Neuromuscular disorder Family History Medical History Relation Name Comments [...] on file Legal Sex Female 7:06 AM GEOPHYSICAL DRAFTER Gender Identity Female 06/12/2021 1:30 PM CDT Sexual Orientation Not on file Obstetrics History Last Filed Vital Signs Vital Sign Reading Time Taken Comments Blood Pressure 135/74 03/05/2025 11:00 AM CDT Pulse 80 03/05/2025 11:00 AM CDT Temperature 36.5 C (97.7 F) 03/05/2025 11:00 AM CDT Respiratory Rate 18 03/05/2025 11:00 AM CDT Oxygen Saturation 98% 03/05/2025 11:00 AM CDT Inhaled Oxygen Concentration - - Weight 68 kg (150 lb) 03/05/2025 11:00 AM CDT Height 157.5 cm (5' 2) 03/05/2025 11:00 AM CDT Body Mass Index 27.44 03/05/2025 11:00 AM CDT Plan of Treatment Health Maintenance Due Date Last Done Comments Hepatitis C Screening 1950 Hepatitis B Screening 1966 Zoster Vaccine (1 of 2) 1967 Osteoporosis Screening-Bone Density Scan 12/20/2010 12/20/2008 Well Visit 65+ 12/27/2019 12/26/2018, 09/21/2018 Depression Screening 03/22/2020 03/22/2019, 12/26/2018, 12/26/2018, Additional history exists Fall Risk Assessment 03/22/2020 03/22/2019, 12/26/2018, 11/29/2018, Additional history exists Influenza Vaccine (#1) 2025 3, 05/13/2022, 05/22/2020 DTaP/Tdap/Td Vaccine (2 - Td or Tdap) 06/15/2033 06/15/2023 Colon Cancer Screening-CT Colonography Discontinued 03/19/2013 Colon [...] Care Management No change(03/05 11:03 AM CDT) Jose M Gutierrez, RAJNI Note: Problem: Chronic [...] Maintenance Results * MAMMOGRAPHY (12/06/2018) Mammogram Normal [facility] Provider MD HEALTH MAINTENANCE Final Result * COLONOSCOPY (03/19/2013 8:29 AM CDT) Colonoscopy Normal Historical Provider MD HEALTH MAINTENANCE Final Result * DEXA SCAN (12/20/2008) DEXA Scan Unknown Historical Provider MD HEALTH MAINTENANCE Final Result from Last 3 Months or Most Recently Relevant to Health Maintenance Insurance [facility] HEALTHLINK OPEN ACCESS [employer] HE[employer]LINK OPEN ACCESS [id number] [place] [address] [employer] OPEN ACCESS Care Teams Corporate Treasury Analyst Relationship Specialty Start Date End Date Sara Vela MD [address] [facility] [address] [place] [address] PCP - General Family Practice 02/27/24 Augustin Goodson MD Referring Physician Nephrology 03/07/18 Leon Oneill MD [address] [place] [address] Referring Physician Hematology 03/07/18 Rick Rivas MD [address] [place] [address] Referring Physician Rheumatology 03/07/18 Wilian Sultana MD [address] [place] [address] Referring Physician Neurology 03/07/18 Renetta Sarabia MD [address] [place] [address] Referring Physician Family Practice 12/27/19 Prudence Gaines MD [address] [facility] AT [facility] [address] [facility] [address] [place] [address] Referring Physician Plastic Surgery 04/05/24
--- OUTSIDE RECORDS SUMMARY | 2025-04-11 08:02 | XMS_ITS | Encounter Summary ---
Author Organization [facility] Address [address] [facility] [place] [address] Phone Care Team Providers Care Descriptive Catalog Librarian Name Role Phone Darnell Bryant MD Unavailable Milly Celaya APRN, BLASTING HELPER Primary Care Provider Unavailable Encounter Details Date Type Department Care Team (Late Contact Info) Description 01/16/2025 Behavioral Health [facility] 1 [place] [address] Justyn Miranda, SENIOR HR MANAGER #[address] [place] [address] Social History Tobacco Use Types Packs/Day Years [...] Info) Description 04/29/2025 10:30 AM CDT [facility] 1 [place] [address] Justyn Miranda, SENIOR HR MANAGER #[address] [place] [address] documented as of this encounter Goals Goal [...] Ready to change Department associated with goal: [facility] Steps [...] Ready to change Department associated with goal: [facility] Steps [...] documented as of this encounter Care Teams Descriptive Catalog Librarian Relationship Specialty Start Date End Date Milly Celaya, MEAT PROCESS WORKER, BLASTING HELPER [address] [place] [address] PCP - General Obstetrics & Gynecology 05/23/18 Darnell Bryant MD [address] [place] [address] Psychiatry 03/16/18 documented as of this encounter
--- OUTSIDE RECORDS SUMMARY | 2025-04-11 08:02 | XMS_ITS | Encounter Summary ---
Author Organization [facility] Address [address] [facility] [place] [address] Phone Care Team Providers Care Procurement Agent Name Role Phone Wilian Sultana MD Unavailable Darnell Bryant MD Unavailable Milly Celaya APRN, PSYCHIATRIC TECH Primary Care Provider Unavailable Encounter Details Date Type Department Care Team (Late st Contact Info) Description 02/02/2024 Behavior[facility] [address] [place] [address] Justyn Miranda, SUPERVISING CHEF [address] [place] [address] Social History Tobacco Use Types Packs/Day Years [...] Info) Description 04/29/2025 10:30 AM CDT [facility] [address] [place] [address] Justyn Miranda LCSW [address] [place] [address] documented as of this encounter Goals Goal [...] documented as of this encounter Care Teams Procurement Agent Relationship Specialty Start Date End Date Milly Celaya, BALING MACHINE TENDER, PSYCHIATRIC [place] [address] PCP - General Obstetrics & Gynecology 05/23/18 Wilian Sultana MD Consulting Physician Neurology 08/11/16 06/24/24 Darnell Bryant MD [address] [place] [address] Psychiatry 03/16/18 documented as of this encounter
--- OUTSIDE RECORDS SUMMARY | 2025-04-11 08:02 | XMS_ITS | Clinical Summary ---
Author Organization [facility] Address [address] [facility] [place] [address] Phone Care Team Providers Care Prosthodontist/Educator Name Role Phone Darnell Bryant MD Unavailable Milly Celaya APRN, WORKGROUP LEADER Primary Care Provider Unavailable Allergies Active Allergy [...] Encounters Date Type Department Care Team Description 04/03/2025 8:30 AM CDT Telemedicine [facility] Health Services [address] [place] [address] Justyn Miranda LCSW Generalized anxiety disorder (Primary Dx); Panic disorder; Adjustment disorder with mixed anxiety and depressed mood Discharge Disposition: Discharged to home or Selfcare 04/03/2025 Travel 03/13/2025 9:00 AM CDT [facility] [address] [place] [address] Justyn Miranda LCSW Generalized anxiety disorder (Primary Dx); Panic disorder; Adjustment disorder with mixed anxiety and depressed mood Discharge Disposition: Discharged to home or Selfcare 03/13/2025 Travel 02/25/2025 8:30 AM CDT [facility] [address] [place] [address] Justyn Miranda LCSW Generalized anxiety disorder (Primary Dx); Panic disorder; Adjustment disorder with mixed anxiety and depressed mood Discharge Disposition: Discharged to home or Selfcare 02/25/2025 Behavioral Health Patient Survey [facility] Services [address] [place] [address] Justyn Miranda LCSW 02/25/2025 Travel 01/30/2025 8:30 AM CDT Telemedicine [facility] Services [address] [place] [address] Justyn Miranda LCSW Generalized anxiety disorder (Primary Dx); Panic disorder; Adjustment disorder with mixed anxiety and depressed mood Discharge Disposition: Discharged to home or Selfcare 01/29/2025 Travel 01/16/2025 8:45 AM CDT [facility] [address] [facility] [place] [address] Justyn Miranda LCSW Generalized anxiety disorder (Primary Dx); Panic disorder; Adjustment disorder with mixed anxiety and depressed mood Discharge Disposition: Discharged to home or Selfcare 01/16/2025 Behavioral Health [facility] [address] [place] [address] Justyn Miranda LCSW 01/16/2025 Travel from Last 3 Months Family History [...] 8:47 AM CDT Height 157.5 cm (5' 2) 05/17/2018 8:47 AM CDT Body Mass Index 27.76 05/17/2018 8:47 AM CDT Plan of Treatment Upcoming Encounters Date Type Department Care Team (Late st Contact Info) Description 04/29/2025 10:30 AM CDT Telemedicine [facility] [address] [facility] [place] [place] [address] Justyn Miranda LCSW #[address] [place] [address] Health Maintenance Due Date Last Done Comments DEXA Bone Density 1950 Hepatitis C Virus (HCV) Screening 1950 Zoster Immunization (1 of 2) 1998 Respiratory Syncytial Virus (RSV) Immunization (Adult) (1 - 1-dose 75+ series) 2023 Influenza Immunization (#1) 04/08/202502/2024, 06/15/2023, 05/13/2022, Additional history exists SARS-COV-2 Immunization ( season) 2025 01/26/2022, 07/08/2021 Pneumococcal Immunization (50+ years) Completed 03/01/2023, 09/08/2020, 08/08/2020, Additional history exists Pneumococcal Immunization Combined Discontinued 03/01/2023, 09/08/2020, 08/08/2020, Additional history exists DTaP/Tdap/Td Immunization Discontinued 06/15/2023 TdaP Immunization Completed 06/15/2023 Hepatitis B Immunization Aged Out No longer eligible based on patient's age to complete this topic Human Papillomavirus (HPV) Immunization Aged Out No longer eligible based [...] Ready to change Department associated with goal: [facility] Steps to achieve goal: Patient to be counseled on coping with grief, during her 45 min individual therapy sessions, 2-3 times per month Patient to be counseled on aspects of healthy self-care, during her 45 min individual sessions, 2-3 times per month Behavioral Health Behavioral Health On track(2024 9:05 AM CDT) Justyn Monique, CHRISTIANO Note: Goal: Patient will be able to report improved mood/coping ability for family stressors/discord, to an acceptable level within the next six months Goal Reviewed today with: patient Readiness to change: Ready to change Department associated with goal: [facility] Steps to achieve goal: Patient counseled on coping with depression, including healthy leisure interests, seeking emotional support Patient counseled on healthy communication skills/setting healthy boundaries/expectations with family members Insurance [employer] MEDICARE Care Teams Prosthodontist/Educator Relationship Specialty Start Date End Date Milly Celaya, ADAM, WORKGROUP LEADER [address] [place] [address] PCP - General Obstetrics & Gynecology 05/23/18 Darnell Bryant MD [address] [place] [id number] Psychiatry 03/16/18
[2025-04-11 09:16] LABS: Hematocrit 45.1 % (37.0-47.0); Hemoglobin 14.8 g/dL (12.0-15.0); Immature Granulocyte Percent A 0.4 % (0-0.5); Lymphocytes Absolute Auto 3.44 K/mm3 (0.9-3.2); Mean Corpuscular HGB Conc 32.8 g/dl (32-36); Mean Corpuscular Hemoglobin 29.8 pg (26-34); Mean Corpuscular Volume 90.7 fl (80-100); Nucleated Red Blood Cells Absolute Auto 0.000 K/mm3 (0.0-0.012); Nucleated Red Blood Cells Perc 0.0 % (0.0-0.2); Platelet Count Result 234 k/mm3 (150-375); Red Blood Count 4.97 M/mm3 (4.2-5.4); White Blood Count 8.5 K/mm3 (4.5-10.0)
[2025-04-11 09:36] LABS: Alanine Aminotransferase 32 U/L (6-35); Albumin Level 4.3 g/dL (3.5-5.1); Alkaline Phosphatase 85 U/L (38-126); Anion Gap 9 mmol/L (4-12); Aspartate Amino Transferase 31 U/L (14-36); Bilirubin,Total 0.4 mg/dL (0.2-1.3); Blood Urea Nitrogen 20 mg/dL (7-17); Calcium 9.6 mg/dL (8.4-10.2); Carbon Dioxide 23 mmol/L (22-30); Chloride 106 mmol/L (98-107); Cholesterol 232 mg/dL (0-200); Estimated Glomerular Filt Rate 32; Glucose 134 mg/dL (65-110); HDL Direct 36 mg/dL; Magnesium 2.1 mg/dL (1.6-2.3); Potassium 4.0 mmol/L (3.4-5.0); Sodium 138 mmol/L (137-145); Total Protein 7.5 g/dL (6.3-8.2); Triglycerides 322 mg/dL (<150)
[2025-04-11 10:03] LABS: MALB Creatinine Ratio 12.7 mg/g (0-30)
[2025-04-11 10:15] LABS: Thyroid Stimulating Hormone Reflex 3.980 uIU/mL (0.465-4.68)
[2025-04-11 10:16] LABS: Hemoglobin A1C 6.4 % (<5.7)
[2025-04-11 10:33] LABS: Vitamin B12 > 1000.0 pg/mL (239-931)
== END 2025-04-11 07:55 | disposition home or self-care (01) ==
PROVIDERS: PCP Nurse Practitioner Family; Referring Provider Nurse Practitioner Family; Visit Provider Internal Medicine Rheumatology
DX: E11.9 Type 2 diabetes mellitus without complications (principal); I10 Essential (primary) hypertension; E55.9 Vitamin D deficiency, unspecified; Z51.81 Encounter for therapeutic drug level monitoring; Z79.899 Other long term (current) drug therapy
CPT/HCPCS: 36415; 80053; 80061; 82043; 82248; 82306; 82607; 83036; 83735; 84443; 85025

== ENCOUNTER 2025-05-14 09:50 | Outpatient (CLI) | payer OTHER, MEDICARE, SELFPAY ==
--- OUTSIDE RECORDS SUMMARY | 2009-09-05 05:00 | XMS_ITS | Continuity of Care Document ---
Author Organization [facility] Address [address] [place] [address] [place] [address] Phone Care Team Providers Care Crib Pad Maker Name Role Phone Marcus Redmond Unavailable Unavailable Procedures Procedure Date Office/outpatient Visit, Est Office/outpatient Visit, Est Office/outpatient Visit, Est Office/outpatient Visit, Est Eye Exam Established Pt Eye Exam Established Pt Eye Exam & Treatment Refraction Advance Directives Directive Yes / No Effective Date File Name No Information Encounters Encounter Description Practice Location Reason(s) For Visit Diagnoses Date Provider Providers Copied on Encounter Office/outpat ient Visit, [facility], [address] [place] [address] [address], [place], [place], [id number], [place] tel:[phone] [facility] No Information 9-201 0 Nyla Velazquez. [address] [facility] [address] , [address], [place], [place], [facility], . tel:[phone] Office/outpat ient Visit, [facility], [address] [place] [address] [address], [place], [place], [id number], [place] tel:[phone] [facility] No Information 1-200 9 Hali Barahona. [address] [facility] [address] , [address], [place], [address], . tel:[phone] Office/outpat ient Visit, [facility], [address] [place] [address] [address], [place], [place], [id number], [place] tel:[phone] [facility] No Information May-0 7-200 9 Lal Brooklyn. [address], [place], [place], [facility], . tel:[phone] Office/outpat ient Visit, [facility], [address] [place] [address] [address], [place], [place], [id number], [place] tel:[phone] [facility] No Information Apr-2 7-200 9 Trey Grimaldohil. [address], [place], [place], [facility], . tel:[phone] [facility], [id number] [place] [address] [address], [place], [place], [id number], tel:[phone] [facility] No Information Nov-2 3-200 9 Hali Barahona. [address], [place], [facility], . tel:[phone] [facility], [address] [place] [address] [address], [place], [place], [id number], tel:[phone] [facility] No Information Ish-2 0-200 9 Hall OD Darnell. [address] , [address], [place], [facility], [place]. tel:[phone] [facility], [address] [place] [address] [address], [place], [place], [id number], [place] tel:[phone] [facility] No Information Feb-2 8-200 7 Hall OD Darnell. [address], [place], [place], [facility], . tel:[phone] Family History Family Member Type Diagnosis Age At Onset No Information Payers Payer name Insurance type Covered green party ID Authoriza tion(s) No Information Social History Type Description Quantity Date Captured Comments Sex Female Smoking Status No Information Chief Complaint And Reason For Visit No Information Reason For Referral Reason For Referral No Information History Of Present Illness Encounter Date Complaint History Of Prese nt Illness No Information Functional Status Date Functional Assessmen t No Information Instructions Date Instruction Additional Infor mation No Information Assessments Type Assessment Date No Information Patient Care Teams Name Effective Dates (start - stop) Status Members No Information
--- OUTSIDE RECORDS SUMMARY | 2025-05-13 09:45 | XMS_ITS | Encounter Summary ---
Author Organization [facility] Address [address] [facility] [place] [address] Phone Care Team Providers Care Convention Manager Name Role Phone Darnell Bryant MD Unavailable Milly Celaya APRN, OYSTER FISHERMAN Primary Care Provider Unavailable Reason for Visit * Reason Comments Depression * Auth/Cert (Routine) Specialty Diagnoses / Procedures Referred By Adriana t Referred To Contact Referral ID Status Reason Start Date Expiration Date Visits Re quested Visits Authorized [id number] 09 01 Encounter Details Date Type Department Care Team (Late st Contact Info) Description 05/13/2025 9:45 AM CDT Telemedicine [facility] 1 [place] [address] Justyn Miranda, PONY TRIMMER [address] [place] [address] Generalized anxiety disorder (Primary Dx); Panic disorder; Grief reaction with prolonged bereavement Discharge Disposition: Discharged to home or Selfcare Social History Tobacco Use Types Packs/Day Years [...] on file documented as of this encounter Patient Instructions * Patient Instructions* Justyn Miranda, PONY TRIMMER - 05/13/2025 9:45 AM CDT Crisis Resources In-Home, Mental Health Crisis Assessment [facility] Crisis Intervention Team?[phone] ([place]) [facility] Crisis Intervention Team?.. [phone] ([place]) [facility] Available for individual, family, or friend for in-home assessment of mental health issues Crisis Stabilization- Residential 24-hour or short-term supervised care at a facility. Available for persons 18 and older, who are experiencing a mental health crisis and do not need hospitalization. [facility] provides 24-hour short-term supervised care for persons aged 18 years and older experiencing an acute psychiatric crisis that does not require hospitalization. The average length of stay is 14 days. Admission to our crisis unit is voluntary; we only accept those individuals who choose to come to the unit. The facility is not prepared to work with persons who may be acutely suicidal or homicidal or who are experiencing serious medical problems or complications. The unit is staffed with nurses and behavioral health technicians and is not a hospital. During their stay on the unit, clients spend time in groups that meet four or more times a day. Thegroups provide education on topics helpful to individuals in crisis and clients are expected to attend and to participate actively. [facility] will provide a safe and supportive environment conducive to achieving stability. No alcohol or drugs are allowed in the unit. All medications are dispensed by [facility] nurses at appropriate times. No visitors are allowed on the unit but there is a phone available for clients to use and make calls. Persons may refer themselves for crisis residential/stabilization services and may be referred by hospitals, police departments, mental health agencies, social service agencies, and families. [facility] ?.....? .[phone] [place] [address] and [facility] ?.???..[phone] Brief Crisis Phone Counseling Behavioral Health Response (BHR)?[phone] / [phone] ([place]) CARES Line (Medicaid patients) ?..[phone] If non-Medicaid patient, the caller will be referred to a local service provider Emergency Sites for Mental Health Assessment and Treatment Behavioral Health Urgent Care [facility]gent [facility] (5yrs old to adult) [address] [address] Tuesday - Tuesday 9:00 am - 7:00 pm *Last patient seen at 6:00 pm Hospitals with Inpatient Psychological Services for Children and/or Adolescents and Adults [facility] (also has substance use treatment for adults) (adolescent, adult) [facility] [place] [address] [facility] (children, adolescents, adult) after business hours [phone] [place] [address]. [facility] Behavioral Health (children, adolescents, adult) [address] [place] [address] [facility] (also has substance use treatment for adults) (children, adolescents, adult) Phone: or [phone] [place] [address] [facility] (adolescent, adult) Phone: or [phone] [address] [place] [address] Hospitals with Inpatient Psychological Services for Adults only [facility] (adult, geriatric) [address] Behavioral Health (adult) [address] [place] [address] [facility] (adult) Phone: or [phone] [address] [place] [address] [facility] (geriatric only) Phone: or [phone] [address] [place] [address] [facility] (adult, geriatric) [address] [place] Hotline Numbers [place] Suicide Prevention Hotline: ?..?.6-934-157-[facility] (5004) or [address] [place] [address] Sexual Assault Hotline?..?.?3-368-669-[place] ([address] Sexual Assault Victims Support?..4-283-736-9484 [facility] Child Abuse Hotline?.1-602.830.5228 Domestic Violence Hotline?.?.4-022-284-S MELANIE (1941) [facility] Lifeline?.? Trans Lifeline?.? LGBTQ Partner Abuse & Sexual Assault Line . .1- [phone] [facility] including support for opioids or other substances.? Crisis Text Line???..?.?.? Text the word help to 047115 [facility] Text Line for service referrals.?.?. Text the word help to 325413 [facility]?3-453-604-79 [address] [place] TIM Warmline? 9a-9p/7 days a week Compassionate Ear Warmline?..4-983-929-2715 documented in this encounter Progress Notes * Justyn Miranda LCSW - 05/13/2025 9:45 AM CDT Images from the original note were not included. [facility] BE[facility]AVIORAL HEALTH CLINICAL PROGRESS NOTE NAME: Kemi Espinosa AGE: 74 y.o. DATE OF : 1950 DATE OF SERVICE: 05/13/2025 START TIME: 10:30 a.m. END TIME: 11:00 a.m. Before the initiation of today's documented service, the patient or patient guardian verbally consented to virtual/remote treatment to be performed and billed. The topics discussed are listed in the assessment and plan in this note. This visit was performed when this clinician was physically located at office/clinic The patient was located at home. DIAGNOSIS: 1. Generalized anxiety disorder 2. Panic disorder 3. Grief reaction with prolonged bereavement TREATMENT PLAN: Goals Addressed This Visit's Progress Behavioral Health On track Goal: Patient will be able to report improved mood/coping ability for family stressors/discord, to an acceptable level within the next six months Goal Reviewed today with: patient Readiness to change: Ready to change Department associated with goal: [facility] Steps to achieve goal: Patient counseled on coping with depression, including healthy leisure interests, seeking emotionalsupport Patient counseled on healthy communication skills/setting healthy boundaries/expectations with family members I need to be able to cope better with my grief and bitterness towards my family within the next sixmonths (pt-stated) On track Goal Reviewed today with: patient Readiness to change: Ready to change Department associated with goal: [facility] Steps to achieve goal: Patient to be counseled on coping with grief, during her 45 min individual therapy sessions, 2-3 times per month Patient to be counseled on aspects of healthy self-care, during her 45 min individual sessions, 2-3times per month PROBLEM STATUS: Kemi was seen today due to the following concerns: Depression: fatigue/loss of energy feeling of helplessness feeling of hopelessness low self esteem/self image withdrawn/isolating grieving Medical/daily routine: adjustment chronic pain Pain from right hand injury, difficulty doing her ADLs and 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 . Kemi talked about ongoing grieving over deaths of daughter and grandson, with the anniversary having been December 01 of her daughter's , has been four years She is still grieving and certain road/highway signs are triggers for a panic attack and exacerbated grieving. She does also have ongoing pain and tingling in her hand and elbow from an injury on last December 26 at a convenience store,aches and nags me throughout the day. February 07 was the birthday of her grandson. March 07 was her daughter's birthday. Her grandson had also in the month of February. I absolutely hate the months of November and February. 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 She feels discouraged as reports that she was told that this hand will never fully recover. She also has increased anxiety as her psychiatric provider is hesitant about prescribing her Xanax, although patient reports her previous psychiatrist prior to his had tried her unsuccessfully on several antidepressants. Based upon the presenting problem the following treatment modalities were utilized: Cognitive Behavioral Therapy Supportive/Client Centered Therapy FUNCTIONAL ASSESSMENT: Can the patient perform Activities of Daily Living (ADL'S)?: Patient is able to complete ADL's independently Does patient have the ability and the capacity to respond to treatment?: Yes THERAPEUTIC INTERVENTIONS USED: This clinician provided therapeutic interventions for: Depression: identifying and decreasing cognitive distortions/negative automatic thoughts contributing negatively to depressed mood and behavior identifying, verbalizing, and processing feelings effectively increasing daily socialization and engagement in pleasant/pleasurable activities copng skills for grief Medical: improving coping surrounding acute/chronic medical condition education/processing lifestyle change due to medical condition education on biological bases of pain education on relationship between behavioral health condition and medical condition . She was encouraged to resume exercising as well as pursuing healthy hobbies. Kemi verbalized an understanding and responded well to interventions provided during treatment session. PROGRESS TOWARDS GOALS: Kemi reported slight improvement of symptoms. MENTAL STATUS EXAM: Kemi is: motivated open pleasant. Affect is: appropriate to context. Mood is: congruent to situation. There is: no current suicidal ideation.. There is: no history of homicidal ideation.. TREATMENT RECOMMENDATIONS/FOLLOW UP: Recommendations for follow up treatment plan: Return for next available follow up appointment Continue individual therapy as needed for support and guidance. JUSTYN MIRANDA LCSW documented in this encounter Plan of Treatment Upcoming Encounters Date Type Department Care Team (Late st Contact Info) Description 06/04/2025 9:15 AM CDT Telemedicine [facility] 1 [place] [address] Justyn Miranda LCSW [address] [place] [address] Discharge Disposition: Discharged to home or Selfcare documented as of this encounter Goals Goal Patient Goal Type Associated Problems Recent Progress Patient-Stated? Author I need to be able to cope better with my grief and bitterness towards my family within the next six months Behavioral Health On track(2024 10:05 AM CDT) Yes Justyn Miranda LCSW Note: Goal Reviewed today with: patient Readiness to change: Ready to change Department associated with goal: [facility] Steps to achieve goal: Patient to be counseled on coping with grief, during her 45 min individual therapy sessions, 2-3 times per month Patient to be counseled on aspects of healthy self-care, during her 45 min individual sessions, 2-3 times per month Behavioral Health Behavioral Health On track(2024 10:05 AM CDT) Justyn Monique, PONY TRIMMER Note: Goal: Patient will be able to report improved mood/coping ability for family stressors/discord, to an acceptable level within the next six months Goal Reviewed today with: patient Readiness to change: Ready to change Department associated with goal: [facility] Steps to achieve goal: Patient counseled on coping with depression, including healthy leisure interests, seeking emotional support Patient counseled on healthy communication skills/setting healthy boundaries/expectations with family members documented as of this encounter Visit Diagnoses Diagnosis Generalized anxiety disorder- Primary Panic disorder Panic disorder without agoraphobia Grief reaction with prolonged bereavement documented in this encounter Additional Health Concerns Assessment Noted Time PHQ-9 Depression Total Score: 1 05/08/20 21 11:00 AM CDT documented as of this encounter Care Teams Convention Manager Relationship Specialty Start Date End Date Milly Celaya, COVER MAKING MACHINE OPERATOR, [place] [address] PCP - General Obstetrics & Gynecology 05/23/18 [place] [address] Psychiatry 03/16/18 documented as of this encounter
[2025-05-14 10:24] LABS: Hematocrit 46.8 % (37.0-47.0); Hemoglobin 15.4 g/dL (12.0-15.0); Mean Corpuscular HGB Conc 32.9 g/dl (32-36); Mean Corpuscular Hemoglobin 29.3 pg (26-34); Mean Corpuscular Volume 89.1 fl (80-100); Platelet Count Result 287 k/mm3 (150-375); Red Blood Count 5.25 M/mm3 (4.2-5.4); White Blood Count 10.7 K/mm3 (4.5-10.0)
[2025-05-14 10:36] LABS: Total Protein Urine Random 13 mg/dL; Ur Ttl Prot Creatinine Ratio 0.54 mg/mg (0-0.20)
--- OUTSIDE RECORDS SUMMARY | 2025-05-14 10:36 | XMS_ITS | Encounter Summary ---
Author Organization [facility] Address [address] [facility] [place] [address] Phone Care Team Providers Care Teletype Technician Name Role Phone Wilian Sultana MD Unavailable Darnell Bryant MD Unavailable Milly Celaya APRN, MANAGER THERAPY Primary Care Provider Unavailable Encounter Details Date Type Department Care Team (Late st Contact Info) Description 08/31/2023 Behavioral Health [facility] 1 [place] [address] Justyn Miranda, PLASTIC STRAIGHTENING ROLL OPERATOR [address] [place] [address] Social History Tobacco Use Types Packs/Day Years [...] Info) Description 06/04/2025 9:15 AM CDT [facility] 1 [place] [address] Justyn Miranda LCSW [address] [place] [address] Discharge Disposition: Discharged to home or Selfcare [...] Behavioral Health On track(2024 10:05 AM CDT) No Justyn Miranda LCSW Note: [...] documented as of this encounter Care Teams Teletype Technician Relationship Specialty Start Date End Date Milly Celaya, SPEECH AND LANGUAGE TUTOR, MANAGER THERAPY [facility] [place] [address] PCP - General Obstetrics & Gynecology 05/23/18 Wilian Sultana MD Consulting Physician Neurology 08/11/16 06/24/24 Darnell Bryant MD [address] [place] [address] Psychiatry 03/16/18 documented as of this encounter
--- OUTSIDE RECORDS SUMMARY | 2025-05-14 10:36 | XMS_ITS | Clinical Summary ---
Author Organization [facility] Address [facility] [place] [address] Care Team Providers Care Behavioral Services Tech Name Role Phone Sara Vela MD Primary Care Provider Gin Toth MD Unavailable Unavailable Augustin Goodson MD Unavailable [phone] Darnell Bryant MD Unavailable [phone] Leon Oneill MD Unavailable [phone] Rick Rivas MD Unavailable Allergies Active Allergy Reactions Criticality Noted Date Comments Tape Rash,Other (see comment) High 08/31/2021 Says the EKG leads being left on her skin caused 3rd degree nova of the skin. Amitriptyline Other (see comment) 08/31/2021 [place] drugged up a lot and felt strange [...] Other (Age a round January 2021) had [place], HTN, poorly controlled diabetes, in sleep with [place]. patient raised him when he was a [...] AM CDT Pulse 63 10/13/2021 11:17 AM SURGICAL PROCESSOR Temperature 36.4 C (97.6 F) 10/13/2021 11:17 AM SURGICAL PROCESSOR Respiratory Rate 18 10/13/2021 11:1 7 AM SURGICAL PROCESSOR Oxygen Saturation 99% 10/13/2021 11: 17 AM SURGICAL PROCESSOR Inhaled Oxygen Concentration - - Weight 71.1 kg (156 lb 12.8 oz) 11/26/2021 9:52 AM CDT Height 157.5 cm (5' 2) 11/26/2021 9:52 AM CDT Body Mass Index [...] 75+ series) 2023 COVID-19 Vaccine (2 - 2024-2 6 season) 2025 07/08/2021 Influenza Adult (#1) 2025 05/22/2020 Meningococcal B Vaccine Aged Out No l onger eligible based on patient's age to complete this topic Meningococcal Vaccine Aged Out No lavinia jose eligible based on patient's age to complete this topic RSV Immunizations Under 20 Months Aged Out No longer eligible b ased on patient's age to complete this topic Insurance AETNA MEDICARE [place] [facility] Care Teams Behavioral Services Tech Relationship Specialty Start Date End Date Sara Vela MD [address] [place] [address] PCP - General FAMILY PRACTICE 07/07/21 Gin Toth MD [address] [place] [address] CARDIOVASCULAR DISEASE 08/31/21 Augustin Goodson MD [address] [facility] [address] [place] [address] Referring Physician NEPHROLOGY 08/31/21 Darnell Bryant MD [facility] in Psychiatry [address] [place] [address] Psychiatry 08/31/21 Leon Oneill MD [address] [facility] [address] [place] [address] HEMATOLOGY/ONCOLOGY 08/31/21 Rick Rivas MD [address] [place] [address] Referring Physician RHEUMATOLOGY 08/31/21
--- OUTSIDE RECORDS SUMMARY | 2025-05-14 10:36 | XMS_ITS | Encounter Summary ---
Author Organization [facility] Address [facility] [place] [address] Care Team Providers Care Credentialing Coordinator Name Role Phone Sara Vela MD Primary Care Provider Gin Toth MD Unavailable Unavailable Augustin Goodson MD Unavailable [phone] Darnell Bryant MD Unavailable [phone] Leon Oneill MD Unavailable Rick Rivas MD Unavailable Encounter Details Date Type Department Care Team (Late st Contact Info) Description 01/26/2022 FounderSync Message [facility] Patient Accounts [address] [place] [address] [facility] Payment [facility] - Past [...] on filedocumented in this encounter Care Teams Credentialing Coordinator Relationship Specialty Start Date End Date Sara Vela MD [address] [place] [address] PCP - General FAMILY PRACTICE 07/07/21 Gin Toth MD [address] [place] [address] CARDIOVASCULAR DISEASE 08/31/21 Augustin Goodson MD [address] [facility] [address] [place] [address] Referring Physician NEPHROLOGY 08/31/21 Darnell Bryant MD [facility] [address] [place] [address] Psychiatry 08/31/21 Leon Oneill MD [address] [facility] [address] [place] [address] HEMATOLOGY/ONCOLOGY 08/31/21 Rick Rivas MD [address] [place] [address] Referring Physician RHEUMATOLOGY 08/31/21 documented as of this encounter
--- OUTSIDE RECORDS SUMMARY | 2025-05-14 10:36 | XMS_ITS | Encounter Summary ---
Author Organization [facility] Address [address] [facility] [address] [place] [address] Care Team Providers Care Strawhat Sizer Name Role Phone Leon Chandler MD Primary Care Provider [phone] Leon Chandler MD Primary Care Provider [phone] Milly Celaya NP Primary Care Provider [phone] Augustin Goodson MD Unavailable [phone] Leon Oneill MD Unavailable Rick Rivas MD Unavailable Gin Toth MD Unavailable [phone] Wilian Sultana MD Unavailable [phone] No, Physician Primary Care Provider [phone] Renetta Sarabia MD Primary Care Provider [phone] Renetta Sarabia MD Unavailable [phone] Renetta Sarabia MD Primary Care Provider [phone] Sara Vela MD Primary Care Provider Prudenec Gaines MD Unavailable [phone] Encounter Details Date Type Department Care Team (Late st Contact Info) Description 08/25/2016 Orders Only [facility] ProviderMitchell MD [address] [place] [address] Social History Tobacco Use Types Packs/Day Years Used Date Smoking Tobacco: Never Alcohol Use Standard Drinks/Week Comments No 0 (1 standard drink = 0.6 oz pur e alcohol) Comments Unknown Sex and Gender Information Value Date Recorded Sex Assigned at Not on file 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 Gender Identity Female 06/12/2021 1:30 PM CDT [...] on filedocumented in this encounter Care Teams Strawhat Sizer Relationship Specialty Start Date End Date Leon Chandler MD PCP - General 11/05/16 03/06/18 Leon Chandler MD PCP - General 02/25/14 11/04/16 Milly Celaya NP [address] [place] [address] PCP - General Family Medicine 03/07/18 11/08/19 No, Physician PCP - General 11/09/19 12/26/19 Renetta Sarabia MD PCP - General Family Practice 12/27/19 12/27/19 Renetta Sarabia MD PCP - General Family Practice 01/03/20 09/21/21 Sara Vela MD [address] [facility] 2 [place], [place] [address] PCP - General Family Practice 02/27/24 Augustin Goodson MD [address] [place] [address] [address] [place] [address] Referring Physician Nephrology 03/07/18 Loen Oneill MD [address] [facility] [address] [place] [address] Referring Physician Hematology 03/07/18 Rick Rivas MD [address] [facility] [address] [place] [address] Referring Physician Rheumatology 03/07/18 Gin Toth MD [address] [facility] [address] [place] [address] Consulting Physician Cardiology 03/07/18 02/26/24 Wilian Sultana MD [address] [facility] 3 [place] [address] Referring Physician Neurology 03/07/18 Renetta Sarabia MD Referring Physician Family Practice 12/27/19 Prudence Gaines MD [address] [facility] [address] [place], [place] [address] Referring Physician Plastic Surgery 04/05/24 documented as of this encounter
--- OUTSIDE RECORDS SUMMARY | 2025-05-14 10:36 | XMS_ITS | Encounter Summary ---
Author Organization [facility] Address [address] [place] [address] Care Team Providers Care Analytical Lab Analyst Name Role Phone Renetta Sarabia MD Primary Care Provider Reason for Visit * Reason Onset Date Comments lab orders 07/13/2022 Encounter Details Date Type Department Care Team (Late st Contact Info) Description 07/13/2022 Telephone [facility] Oncology and Hematology - [place] [address] [place] [address] [address] [place] [address] Leon Oneill MD [address] [facility] [address] [place] [address] lab orders Social History Tobacco [...] Renetta Faith RN - 07/13/2022 10:28 AM PARK INTERPRETIVE RANGER No labs ordered for this patient at last visit. 1 year F/U. I pended CBC, CMP, Immunoglobulins. Please add any other orders needed. INTERPRETIVE RANGER documented in this encounter Plan of Treatment Upcoming Encounters Date Type Department Care Team (Late st Contact Info) Description 07/22/2025 1:00 PM PARK INTERPRETIVE RANGER Office Visit [facility] Oncology and Hematology - [place] [address] [facility] [address] [place] [address] Leon Oneill MD [address] [facility] [address] [place] [address] documented as of this encounter Visit Diagnoses Diagnosis Hypogammaglobulinemia- Primary Hypogammaglobulinaemia, unspecified documented in this encounter Care Teams Analytical Lab Analyst Relationship Specialty Start Date End Date Renetta Sarabia MD PCP - General Family Practice 12/21/19 documented as of this encounter
--- OUTSIDE RECORDS SUMMARY | 2025-05-14 10:36 | XMS_ITS | Clinical Summary ---
Author Organization [facility] Address [address] [place] [address] Care Team Providers Care Lane Attendant Name Role Phone Sara Vela MD Primary Care Provider Source Comments [facility],non-owned Affiliates and Associated Physician Practices is amultiple site organization consisting of ambulatory clinics and hospital sitesin [place], [place], [place] and [place]. This disclosure is being madepursuant to the Care Everywhere program and may not contain all information available regarding this patient. 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 Gender Identity Not on file Sexual Orientation Not on file Last Filed Vital Signs Vital Sign Reading Time Taken Comments Blood Pressure 112/62 06/23/2017 4:02 PM BENEFITS TECHNICIAN Pulse 55 06/23/2017 4:02 PM BENEFITS TECHNICIAN Temperature 36.8 C (98.2 F) 06/23/2017 4:02 PM BENEFITS TECHNICIAN Respiratory Rate 16 06/23/2017 4:02 PM BENEFITS TECHNICIAN Oxygen Saturation - - Inhaled Oxygen Concentration - - Weight 67.1 kg (148 lb) 06/23/2017 4:02 PM BENEFITS TECHNICIAN Height 157.5 cm (5' 2) 06/23/2017 4:02 PM BENEFITS TECHNICIAN Body Mass Index 27.07 06/23/2017 4:02 PM BENEFITS TECHNICIAN Plan of Treatment Health Maintenance Due Date Last Done Comments BONE DENSITY TESTING 1950 HEPATITIS C SCREENING 09/20/1966 DTAP/TDAP/TD VACCINES (1 - Tdap) 1967 PNEUMOCOCCAL VACCINE 50+ (1 of 1 - PCV) 1998 ZOSTER VACCINE (1 of 2) 1998 SCREENING FOR DIABETES 06/23/2017 Respiratory Syncytial Virus (RSV) Vaccine Pt: or over 60 yrs (1 - 1-dose 75+ series) 2023 DEPRESSION SCREENING 08/08/2024 MEDICARE AWV CALENDAR YEAR 2024 COVID-19 VACCINE ( - 2023-2 5 season) 2025 INFLUENZA VACCINE (#1) 2025 HEPATITIS B VACCINE [...] AETNA MEDICARE ADV [employer] AETNA MEDICARE ADV [employer] AETNA MEDICARE ADV Care Teams Lane Attendant Relationship Specialty Start Date End Date Sara Vela MD [address] [place] [address] PCP - General 12/06/22
--- OUTSIDE RECORDS SUMMARY | 2025-05-14 10:36 | XMS_ITS | Encounter Summary ---
Author Organization [facility] Healthcare Address [address] [place] [address] Care Team Providers Care Director Of Student Aid Name Role Phone Augustin Goodson MD Unavailable [phone] Leon Oneill MD Unavailable [phone] Rick Rivas MD Unavailable Wilian Sultana MD Unavailable [phone] Renetta Sarabia MD Unavailable [phone] Sara Vela MD Primary Care Provider Prudence Gaines MD Unavailable [phone] Encounter Details Date Type Department Care Team (Late st Contact Info) Description 12/17/2024 Telephone [facility] [address] 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 Gender Identity Female 06/12/2021 1:30 PM CDT [...] on filedocumented in this encounter Care Teams Director Of Student Aid Relationship Specialty Start Date End Date Sara Vela MD [address] [place] [address] PCP - General Family Practice 02/27/24 Augustin Goodson MD Referring Physician Nephrology 03/07/18 Leon Oneill MD [address] [place] [address] Referring Physician Hematology 03/07/18 Rick Rivas MD [address] [place] [address] Referring Physician Rheumatology 03/07/18 Wilian Sultana MD [address] [place] [address] Referring Physician Neurology 03/07/18 Renetta Sarabia MD [address] [place] [address] Referring Physician Family Practice 12/27/19 Prudecne Gaines MD [address] [place] [address] Referring Physician Plastic Surgery 04/05/24 documented as of this encounter
--- OUTSIDE RECORDS SUMMARY | 2025-05-14 10:36 | XMS_ITS | Data Portability ---
Author Organization [place] [facility] [email or web address], Main Office Address [address] [place] [address] Care Team Providers Care Bobbin Hauler Name Role Phone NOLBERTO MAYA Primary Care Provider [phone] NOLBERTO MAYA Referring Provider Assessment Encounter Date [...] a dose pack 024 024 [id number] [address] In [facility], [address] [place], [address], 16:24:30 Patient TargetsNo targets recorded. Patient InstructionsNo [...] sympt oms consi stent with COVID -19. Pleas e revie w the Fact Sheet s for healt h care provi ders and patie nts at the [facility] te: https ://gl oalpo intof care. abbot t/en/ produ ct-de tails /id-n ow-co vid-1 9.htm l Metho dolog y: Isoth ermal Nucle ic Acid Ampli ficat ion Not Available [facility] ([facility]) [address], [place], [address], 02/09/2021 14:48:57 02/04/20 21 01/28/2021 XR, knee, 3 view No observ ation record ed. [id number] Not Available 10/06/2022 06:05:32 02/05/20 21 XR, knee No observ ation record ed. [id number] [facility] [address], [place], [address], 10/06/2022 06:05:32 02/06/20 21 MRI, knee, w/o contr ast [facility] [address], [place] [address] Patien t Name: STEPHANE ESPINOSA Access ion #: [id number] Sex: F : 1950 7 Locati [...] mechan isms are grossl y intact . Howeve r the PCL is somewh at thicke emiliana and irregu lar which may repres ent a Page 1 of 2 [facility] t Name: STEPHANE ESPINOSA Access ion #: [id number] Sex: F : 1950 7 Exam Date: 02/06/20 8:41 AM Exam Name: MRI KNEE LT WO Admitt ing Diagno sis(es ): partia l tear. The is/it project manager ior horn of the medial menisc us demons trates a comple x tear. The is/it project manager ior horn of the medial menisc us is extrud ed in a medial direct ion. The latera l menisc us is intact . The is/it project manager olater al corner struct ures are normal appear ing. The extens or mechan ism is intact . The overly ing muscul ature demons trates normal signal and morpho logy. IMPRES KAREN: Director Information ior horn medial menisc al tear. Modera te chondr omalac ia patell a. Small joint effusi on. Possib le partia l tear of the PCL. Create d and electr onical ly signed by: Narinder Tuttle ch, DO Signed Date: 02/06/20 9:53 AM (CT) Dictat ed by: Narinder Tuttle ch, DO (CT) (CT) Page 2 of 2 [id number] [facility] (Imaging) [address] [place], [address], 10/06/2022 06:05:32 12/29/19 24 XR, wrist No observ ation record ed. Not Available 2023 17:11:55 Result Notes Documentation Provider Name and Address Organization Details Recorded Time Mri, Knee, W/o Contrast : [facility] [address] [place] [address] Patient Name: DARRENJEANINE Sex: F : 1950 Location: [facility] Attending Physician: DEX ROBLEDO Ordering Physician: DEX ROBLEDO Exam Date: 02/05/2021 8:41 AM Exam Name: MRI KNEE LT WO Admitting Diagnosis(es): RADIOLOGY REPORT - FINAL EXAM: MRI KNEE LT WO HISTORY: trauma, pain COMPARISON: Radiographs of the left knee dated 02/04/2021 TECHNIQUE: Multiplanar multisequence noncontrast MR images of the left knee were performed. FINDINGS: There is moderate patellofemoral and medial joint space narrowing. Moderate chondromalacia patella and small joint effusion and small Vang's cyst formation are noted. No fracture, subluxation or abnormal marrow process is noted the ACL, PCL, MCL, LCL and extensor mechanisms are grossly intact. However the PCL is somewhat thickened and irregular which may represent a Page 1 of 2 [facility] Patient Name: JEANINE ESPINOSA Sex: F : 1950 Exam Date: 02/05/2021 8:41 AM Exam Name: MRI KNEE LT WO Admitting Diagnosis(es): partial tear. The posterior horn of the medial meniscus demonstrates a complex tear. The posterior horn of the medial meniscus is extruded in a medial direction. The lateral meniscus is intact. The posterolateral corner structures are normal appearing. The extensor mechanism is intact. The overlying musculature demonstrates normal signal and morphology. IMPRESSION: Posterior horn medial meniscal tear. Moderate chondromalacia patella. Small joint effusion. Possible partial tear of the PCL. Created and electronically signed by: Narinder Bazan DO Signed Date: 02/05/2021 9:53 AM (CT) Dictated by: Narinder Bazan DO (CT) (CT) Page 2 of 2 Not Available [facility] 10/06/2022 06:0 5:33 Problems Name Problem SNOMED Code Status Onset Date Resolution Date Notes Provider Name and Address Organization Details Recorded Time Anxiety disorder 851964862 Active 1979 Not Available [facility] 3 05:58:35 Panic disorder 312293351 Active 1979 Not Available [facility] 3 05:58:35 Scoliosis deformity of spine 622054770 Active 1997 Not Available [facility] 3 05:58:35 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 Dr. Augustin Zuluaga (nephrolo gy) Not Available [facility] 3 05:58:36 Aortic valve cusp prolapse 915076393 Active [address] Toth (cardiolo gy) Not Available [facility] 3 05:58:35 Arthritis 6208091 Active 2015 Worse back Not Available [facility] 3 05:58:36 Diverticu litis 524267897 Active 2019 Not Available [facility] 3 05:58:35 Pain of right wrist 50696761370 9100 Active 2023 Nalini dixon, [facility] [employer] [facility] 4 15:47:43 Contusion of right wrist 17298700243 092112 Active 2023 OUMOU Ramon [address] [place] [address], [place], [address] , [facility] [employer] [facility] 4 17:07:11 Sprain of right wrist 03625616714 434219 Active 2023 OUMOU Ramon [address], [place], [address] , [facility] [employer] [facility] 4 17:07:20 Problem Notes None recorded. Procedures Surgical History Date Name Laterality Status Provider Name and Address Organization Details Recorded Time 02/11/20 21 Knee arthroscopy/surg dayday completed Not Available [facility] 10/06/2022 05:53:40 Hysterectomy completed Not Available [facility] 10/06/2022 05:53:40 Foot Surgery completed Not Available [facility] 10/06/2022 05:53:40 Colonoscopy completed [facility] 01/05/2024 15:45:11 Endoscopy completed [facility] 01/05/2024 15:45:30 Cataract Surgery completed [facility] 01/05/2024 15:45:52 Eye Surgery completed [facility] 01/05/2024 15:46:18 Imaging Results None recorded. Procedure Notes None recorded. Medical Equipment None Reported. Allergies Allergen ID Allergen Name Allergen Category Reaction Reaction Severity Criticality Documentation Date Start Date Code Code System Note Provider Name and Address Organization Details Recorded Time 31464 Substance with sulfonami de structure and antibacte rial mechanism of action (substanc e) medicatio n anaphylax is severe Not available 10/06/2022 41435 8003 SNOMED Not Available [facility] 3 06:05:19 01609 prednisol one medicatio n palpitati ons severe Not available 10/06/2022 8638 RxNorm Not Available [facility] 3 06:05:20 36175 Product containin g penicilli n (product) medicatio n rash severe Not available 10/06/2022 37786 8001 SNOMED Not Available [facility] 3 06:05:20 39834 Levaquin medicatio n anaphylax is severe Not available 10/06/2022 92516 2 RxNorm Not Available [facility] 3 06:05:20 97158 Dilaudid medicatio n anaphylax is severe Not available 10/06/2022 12033 3 RxNorm Not Available [facility] 3 06:05:20 28159 Bactrim medicatio n anaphylax is severe Not available 10/06/2022 75785 9 RxNorm Not Available [facility] 3 06:05:20 95996 cortisone medicatio n Not available Not available Not available 01/05/2024 2878 RxNorm injec tions Nalinismita [facility], [place] [facility] 4 15:39:42 Medications Name Sig Start Date [...] active Not Available Not Available Not Avai lable alprazola m 09/02 completed Duplicat e Not Available [...] 6 TIMES DAILY NEEDED FOR PAIN RELIEF 05/30 /2024 completed Not Available Not Available Not Available Eliquis 2.5 mg tablet Take 1 tablet twice a day by oral route for 14 days. 01/04 completed Not Available Not Available Not Available Farxiga 5 mg tablet TAKE 1 TABLET BY MOUTH IN THE MORNING active Not Available Not Available No t Available Fluad Quad (65yr up)(PF) 60 mcg (15 mcg x 4)/0.5mL IM syringe ADMINIST ER 0.7ML IN THE MUSCLE DIRECTED 08/21 completed Not Available Not Available Not Available Vitals Date Recorded Body height Body mass index (BMI) Body weight Provider Name and Address Organization Details Last Updated DateTime 01/05/2024 157.48 cm 27.4 kg/m2 78423.86 g Nalini Harrison [facility] [employer] [facility] 01/05/2024 15:37:50 Date Recorded Body height Provider Name an d Address Organization Details Last Updated DateTime 02/04/2021 157.48 cm Not Available [facility] 3 05:55:19 Date Recorded Body height Provider Name an d Address Organization Details Last Updated DateTime 02/05/2021 157.48 cm Not Available [facility] 3 05:55:20 Date Recorded Body height Provider Name an d Address Organization Details Last Updated DateTime 02/19/2021 157.48 cm Not Available [facility] 3 05:55:20 Date Recorded Body height Provider Name an d Address Organization Details Last Updated DateTime 03/12/2021 157.48 cm Not Available [facility] 3 05:55:20 Social History Question Answer Notes LastModified by Organizat ion Details LastModified Time Tobacco Smoking Status Never Smoker Not Available [facility] 10/06/2022 05:53:25 What Was The Date Of Your Most Recent Tobacco Screening? 10/15/2020 [id number] Information not available 10/06/2022 Sex: Unknown Functional Status None recorded. Mental Status None recorded. Family History Relationship Description Onset Age of this Age Resolved Age Notes LastModified by Organization Details LastModified Time Mother Complication of anesthesia [id number] Not available 10/06/2022 05:53:42 Mother Family history of malignant neoplasm [id number] Not available 10/06/2022 05:53:42 Father Family history of malignant neoplasm [id number] Not available 10/06/2022 05:53:42 Mother Heart disease [...] Diagnosis SNOMED-CT Code Diagnosis ICD10 Code Diagnosis IMO Codes Diagnosis Note [id number] MD AI [facility] [address] [place] [address] 10/15/2020 00:00:00 11/02/2020 12:48:48 [id number] Dex Robledo MD [facility] [address] [place] [address] 02/04/2021 00:00:00 02/05/2021 16:43:41 [id number] MD ABBIE Gaviria_NETTE [address] [address] 02/05/2021 00:00:00 02/05/2021 16:45:14 [id number] MD FLORIN Gaviria [address] [address] 02/19/2021 00:00:00 02/19/2021 15:11:41 [id number] MD FLORIN Gaviria [address] [address] 03/12/2021 00:00:00 03/12/2021 12:31:34 [id number] MD LISSETTE [facility] [address] [place] [address] 01/05/2024 14:17:53 01/05/2024 16:30:12 Pain of right wrist 2502803874 73981 M25.531 Sprain of right wrist 11 15054660 4187647 S63.501A Contusion of right wrist 0976317778 6592059 S60.211A Health Concerns Section Related Observation LastModified by Organization Detai ls LastModified Time None Recorded Concern Status LastModified by Organization Details LastModified Time None Recorded Advance Directives Directive None Recorded Payers Insurance Date Sequence Insurance Name Policy Number Policy Omer Covered Member ID Omer Member ID Guarantor Name 01/05/2024 1 Pet Insurance Quotes [facility] Jeanine Espinosa [id number] Jeanine Espinosa 03/23/2024 2 AETNA (PPO) [id number] Jeanine Espinosa [id number] Jeanine Espinosa 03/23/2024 3 *SELF PAY* Sh marilyn Espinosa 01/05/2024 1 [employer]NA - GOLD PLUS (MEDICARE REPLACEMENT/A DVANTAGE - HMO) Jeanine Espinosa [id number] Jeanine Espinosa 03/23/2024 1 Pet Insurance Quotes [facility] [address] ROLLER OPERATOR FUND - OPEN ACCESS III (PPO) Jeanine Espinosa [id number] Jeanine Espinosa Notes Date Note Type Note Provider [...] to the emergency room that day to [facility] had x-rays performed. I have reviewed [...] of psoriatic osteoarthritis and has seen a production sound mixer for this chronically. She has had to [...] today with the patient. OUMOU Ramon [address] [facility] [address], [place], [address], [place] [facility] [email or web address] 01/05/2024 17:08:00 OBGyn Episode No OBEpisode recorded.
--- OUTSIDE RECORDS SUMMARY | 2025-05-14 10:36 | XMS_ITS | Encounter Summary ---
Author Organization [facility] Address [address] [facility] [place] [address] Phone Care Team Providers Care Bacteriology Technician Name Role Phone Wilian Sultana MD Unavailable Darnell Bryant MD Unavailable Milly Celaya APRN, MECHANICAL STRIPER Primary Care Provider Unavailable Encounter Details Date Type Department Care Team (Late st Contact Info) Description 03/11/2023 Behavioral Health Patient Survey [facility] Services [address] [place] [address] Justyn Miranda, [facility] [address] [place] [address] Social History Tobacco Use Types Packs/Day Years [...] Info) Description 06/04/2025 9:15 AM CDT Telemedicine [facility] Health Services [address] [place] [address] Justyn Miranda LCSW [address] [place] [address] Discharge Disposition: Discharged to home or Selfcare [...] to change Department associated with goal: [facility] BE[facility]AVIORAL HEALTH SERVICES Steps to [...] to change Department associated with goal: [facility] SERVICES Steps to [...] documented as of this encounter Care Teams Bacteriology Technician Relationship Specialty Start Date End Date Milly Celaya, RADIOLOGY ORDERLY, MECHANICAL STRIPER [address] [place] [address] PCP - General Obstetrics & Gynecology 05/23/18 Wilian Sultana MD Consulting Physician Neurology 08/11/16 06/24/24 Darnell Bryant MD [address] [place] [address] Psychiatry 03/16/18 documented as of this encounter
--- OUTSIDE RECORDS SUMMARY | 2025-05-14 10:36 | XMS_ITS | Encounter Summary ---
Author Organization [facility] Address [address] [facility] [place] [address] Phone Care Team Providers Care National Facilities Manager Name Role Phone Wilian Sultana MD Unavailable [phone] Darnell Bryant MD Unavailable Milly Celaya APRN, SLIPCOVER CUTTER Primary Care Provider Unavailable Encounter Details Date Type Department Care Team (Late st Contact Info) Description 02/02/2023 Behavioral Health Patient Survey [facility] Behavior[facility] Health Services [address] [place] [address] Justyn Miranda, [facility] [address] [place] [address] Social History Tobacco Use Types Packs/Day Years [...] Info) Description 06/04/2025 9:15 AM CDT Telemedicine [facility] Behavioral Health Services [address] [place] [address] Justyn Miranda LCSW [address] [place] [address] Discharge Disposition: Discharged to home or Selfcare [...] to change Department associated with goal: [facility] BE[facility]AVIORAL HEALTH SERVICES Steps to achieve goal: [...] to change Department associated with goal: [facility] Steps to achieve goal: [...] documented as of this encounter Care Teams National Facilities Manager Relationship Specialty Start Date End Date Milly Celaya, OIL LEASE BROKER, SLIPCOVER CUTTER [address] [place] [address] PCP - General Obstetrics & Gynecology 05/23/18 Wilian Sultana MD Consulting Physician Neurology 08/11/16 06/24/24 Darnell Bryant MD [address] [place] [address] Psychiatry 03/16/18 documented as of this encounter
--- OUTSIDE RECORDS SUMMARY | 2025-05-14 10:36 | XMS_ITS | Encounter Summary ---
Author Organization [facility] Address [address] [place] [address] Care Team Providers Care Datacap Developer Name Role Phone Sara Vela MD Primary Care Provider Gin Toth MD Unavailable Unavailable Augustin Goodson MD Unavailable [phone] Darnell Bryant MD Unavailable [phone] Leon Oneill MD Unavailable [phone] Rick Rivas MD Unavailable Encounter Details Date Type Department Care Team (Late st Contact Info) Description 11/19/2021 MyChart Message Enc [facility] Orthopedic & Sports Medicine - [address] [address] Rudy Velasquez MD I need help please [...] on filedocumented in this encounter Care Teams Datacap Developer Relationship Specialty Start Date End Date Sara Vela MD [address] [place] [address] PCP - General FAMILY PRACTICE 07/07/21 Gin oTth MD [address] [place] [address] CARDIOVASCULAR DISEASE 08/31/21 Augustin Goodson MD [address] [facility] [address] [place] [address] Referring Physician NEPHROLOGY 08/31/21 Darnell Bryant MD [facility] in Psychiatry [address] [facility] [place] [address] Psychiatry 08/31/21 Leon Oneill MD [address] [facility] [address] [place] [address] HEMATOLOGY/ONCOLOGY 08/31/21 Rick Rivas MD [address] [place] [address] Referring Physician RHEUMATOLOGY 08/31/21 documented as of this encounter
--- OUTSIDE RECORDS SUMMARY | 2025-05-14 10:36 | XMS_ITS | Encounter Summary ---
Author Organization [facility] Address [address] [place] [facility] [place] [address] Phone Care Team Providers Care Plant Protection Supervisor Name Role Phone Darnell Bryant MD Unavailable Milly Celaya APRN, CLAY WORKER Primary Care Provider Unavailable Encounter Details Date Type Department Care Team (Late st Contact Info) Description 09/19/2024 Behavioral [facility] [address] [place] [address] Justyn Miranda, STOCK PREPARER [address] [place] [address] Social History Tobacco Use Types Packs/Day Years [...] Info) Description 06/04/2025 9:15 AM CDT [facility] [address] [place] [address] Justyn Miranda, STOCK PREPARER [address] [place] [address] Discharge Disposition: Discharged to home or Selfcare [...] On track(2024 10:05 AM CDT) No Justyn Miranda, CHRISTIANO Note: [...] documented as of this encounter Care Teams Plant Protection Supervisor Relationship Specialty Start Date End Date iMlly Celaya, BAG TESTER, CLAY WORKER [address] [place] [address] PCP - General Obstetrics & Gynecology 05/23/18 Darnell Bryant MD [address] [place] [address] Psychiatry 03/16/18 documented as of this encounter
--- OUTSIDE RECORDS SUMMARY | 2025-05-14 10:36 | XMS_ITS | Encounter Summary ---
Author Organization [facility] Address [address] [facility] [place] [address] Phone Care Team Providers Care Qa Developer Name Role Phone Darnell [place] MD Unavailable Milly Celaya APRN, SERVICE UNIT OPERATOR OIL WELL Primary Care Provider Unavailable Encounter Details Date Type Department Care Team (Late st Contact Info) Description 12/05/2024 Behavioral Health [facility] 1 [place] [address] Justyn Miranda, WEB APPLICATION DEVELOPER #1 [place] [address] Social History Tobacco Use Types Packs/Day Years [...] Info) Description 06/04/2025 9:15 AM CDT Telemedicine [facility] 1 [place] [address] Justyn Miranda, WEB APPLICATION DEVELOPER #1 [place] [address] Discharge Disposition: Discharged to home or Selfcare [...] documented as of this encounter Care Teams Qa Developer Relationship Specialty Start Date End Date Milly Celaya, TOLL COLLECTOR, SERVICE UNIT OPERATOR OIL WELL [address] [address] PCP - General Obstetrics & Gynecology 05/23/18 Darnell Brynat MD [address] [address] Psychiatry 03/16/18 documented as of this encounter
--- OUTSIDE RECORDS SUMMARY | 2025-05-14 10:36 | XMS_ITS | Encounter Summary ---
Author Organization [facility] Address [address] [facility] [place] [address] Phone Care Team Providers Care Global Chief Experience Officer Name Role Phone Wilian Sultana MD Unavailable Darnell [place] MD Unavailable Milly Celaya APRN, FILLING WINDER Primary Care Provider Unavailable Encounter Details Date Type Department Care Team (Late st Contact Info) Description 05/25/2023 [facility] 1 [place] [address] Justyn Miranda, [facility] [address] [place] [address] Social History Tobacco Use Types Packs/Day Years [...] Description 06/04/2025 9:15 AM CDT Telemedicine [facility] [address] [place] [address] Justyn Miranda LCSW [address] [place] [address] Discharge Disposition: Discharged to home or Selfcare [...] documented as of this encounter Care Teams Global Chief Experience Officer Relationship Specialty Start Date End Date Milly Celaya, SHUTTLE FINAL INSPECTOR, FILLING WINDER [address] [place] [address] PCP - General Obstetrics & Gynecology 05/23/18 Wilian Sultana MD Consulting Physician Neurology 08/11/16 06/24/24 Darnell [place] MD [address] [place] [address] Psychiatry 03/16/18 documented as of this encounter
--- OUTSIDE RECORDS SUMMARY | 2025-05-14 10:37 | XMS_ITS | Encounter Summary ---
Author Organization [facility] Address [address] [facility] [place] [address] Phone Care Team Providers Care Fruit Loader Name Role Phone Wilian Sultana MD Unavailable Darnell [place] MD Unavailable Milly Celaya APRN, DRIVER EDUCATION INSTRUCTOR Primary Care Provider Unavailable Encounter Details Date Type Department Care Team (Late st Contact Info) Description 04/05/2024 [facility] 1 [place] [address] Justyn Miranda, SOIL CHECKER #1 [place] [address] Social History Tobacco Use Types Packs/Day Years [...] [facility] 1 [place] [address] Justyn Miranda LCSW #1 [place] [address] Discharge Disposition: Discharged to home or Selfcare [...] documented as of this encounter Care Teams Fruit Loader Relationship Specialty Start Date End Date Milly Celaya, METALSMITH, DRIVER EDUCATION INSTRUCTOR [place] [facility] [address] PCP - General Obstetrics & Gynecology 05/23/18 Wilian Sultana MD Consulting Physician Neurology 08/11/16 06/24/24 Darnell [place] MD [address] [place] [address] Psychiatry 03/16/18 documented as of this encounter
--- OUTSIDE RECORDS SUMMARY | 2025-05-14 10:37 | XMS_ITS | Encounter Summary ---
Author Organization [facility] [employer] [facility] Care Team Providers Care Poultry Processor Name Role Phone Darnell [place] MD Unavailable Milly Celaya APRN, GATE AGENT Primary Care Provider Unavailable Encounter Details Date Type Department Care Team (Latest Contact Info) Description 05/13/2025 Travel Social History Tobacco Use Types Packs/Day Years [...] Info) Description 06/04/2025 9:[address] [facility] Services 1 [place] [address] Justyn Miranda, TRAIN BRAKEMAN [address]1 [place] [address] Discharge Disposition: Discharged to home or Selfcare documented as of this encounter Goals Goal Patient Goal Type Associated Problems Recent Progress Patient-Stated? Author I need to be able to cope better with my grief and bitterness towards my family within the next six months Behavioral Health On track(2024 10:05 AM CDT) Yes Justyn Miranda, TRAIN BRAKEMAN Note: Goal Reviewed today with: patient Readiness to change: Ready to change Department associated with goal: [facility] Steps to achieve goal: Patient to be counseled on coping with grief, during her 45 min individual therapy sessions, 2-3 times per month Patient to be counseled on aspects of healthy self-care, during her 45 min individual sessions, 2-3 times per month Behavioral Health Behavioral Health On track(2024 10:05 AM CDT) Justyn Monique, CHRISTIANO Note: Goal: Patient will be able to report improved mood/coping ability for family stressors/discord, to an acceptable level within the next six months Goal Reviewed today with: patient Readiness to change: Ready to change Department associated with goal: [facility] HE[facility] SERVICES Steps to [...] documented as of this encounter Care Teams Poultry Processor Relationship Specialty Start Date End Date Milly Celaya, BROOMCORN GRADER, [place] [address] PCP - General Obstetrics & Gynecology 05/23/18 [place] [address] Psychiatry 03/16/18 documented as of this encounter
--- OUTSIDE RECORDS SUMMARY | 2025-05-14 10:37 | XMS_ITS | Encounter Summary ---
Author Organization [facility] Address [address] [facility] [place] [address] Phone Care Team Providers Care Rabbler Name Role Phone Wilian Sultana MD Unavailable Darnell [place] MD Unavailable Milly Celaya APRN, DELICATESSEN GOODS STOCK CLERK Primary Care Provider Unavailable Encounter Details Date Type Department Care Team (Late st Contact Info) Description 05/22/2024 [facility] 1 [place] [address] Justyn Miranda, SUPERVISOR CHASSIS ASSEMBLY #1 [place] [address] Social History Tobacco Use Types Packs/Day Years [...] Info) Description 06/04/2025 9:15 AM CDT [facility] 1 [place] [address] Justyn Miranda LCSW #1 [place] [address] Discharge Disposition: Discharged to home or Selfcare [...] to change Department associated with goal: [facility] Steps to achieve [...] to change Department associated with goal: [facility] Steps to achieve [...] documented as of this encounter Care Teams Rabbler Relationship Specialty Start Date End Date Milly Celaya, CLIENT SERVICE CONSULTANT, DELICATESSEN GOODS STOCK CLERK [place] [facility] [place] [address] PCP - General Obstetrics & Gynecology 05/23/18 Wilian Sultana MD Consulting Physician Neurology 08/11/16 06/24/24 Darnell [place] MD [address] [address] Psychiatry 03/16/18 documented as of this encounter
--- OUTSIDE RECORDS SUMMARY | 2025-05-14 10:37 | XMS_ITS | Encounter Summary ---
Author Organization [facility] Address [address] [facility] [place] [address] Phone Care Team Providers Care Water Filtration Technician Name Role Phone Wilian Sultana MD Unavailable Darnell [place] MD Unavailable Milly Celaya APRN, IRON ASSORTER Primary Care Provider Unavailable Encounter Details Date Type Department Care Team (Late st Contact Info) Description 10/04/2023 Behavioral [facility] 1 [place] [address] Justyn Miranda, SALES ASSOCIATE CASHIER #1 [place] [address] Social History Tobacco Use Types Packs/Day Years [...] Info) Description 06/04/2025 9:15 AM CDT [facility]medicine [facility] 1 [place] [address] Justyn Miranda LCSW #1 [place] [address] Discharge Disposition: Discharged to home or Selfcare [...] documented as of this encounter Care Teams Water Filtration Technician Relationship Specialty Start Date End Date Milly Celaya, INDUSTRIAL WELDER, IRON ASSORTER [place] [facility] [place] [address] PCP - General Obstetrics & Gynecology 05/23/18 Wilian Sultana MD Consulting Physician Neurology 08/11/16 06/24/24 Darnell [place] MD [address] [address] Psychiatry 03/16/18 documented as of this encounter
--- OUTSIDE RECORDS SUMMARY | 2025-05-14 10:37 | XMS_ITS | Clinical Summary ---
Author Organization [facility] Address [address] [place] [address] Phone Care Team Providers Care Corrections Lieutenant Name Role Phone Sara Vela MD Primary Care Provider Allergies Active Allergy Reactions Criticality Noted Date Comments Amitriptyline Other (see comments) 08/31/2021 [place] drugged up a lot and felt strange [...] MG tablet 1 prn 0 7 Active Mission-3 1000 MG capsule Take 1 capsule by [...] HERPES FLARE UP 1 Active nystatin (MYCOSTATIN) 760390 UNIT/ML suspension ADMININSTER (5ML) EVERY 6 HOURS 1/2 OF DOSE IN EACH SIDE OF THE MOUTH. 1 Active mirtazapine (REMERON) 15 MG tablet TAKE 1/2 (ONE-HALF) TABLET BY MOUTH TWICE DAILY 2 Active neomycin-polymy allie-hydrocortis one (CORTISPORIN) 3.5-92920-3 otic suspension INSTILL 4 DROPS INTO LEFT [...] on file Legal Sex Female 7:44 AM [facility] Gender Identity Not on file Sexual [...] (#1) 2025 05/22/2020 Insurance [employer] MEDICARE ADVANTAGE [employer] Care Teams Corrections Lieutenant Relationship Specialty Start Date End Date Sara Vela MD [address] [place] [address] PCP - General Internal Medicine 08/24/21
--- OUTSIDE RECORDS SUMMARY | 2025-05-14 10:37 | XMS_ITS | Encounter Summary ---
Author Organization [facility] Address [address] [facility] [place] [address] Phone Care Team Providers Care Physician Office Rep Name Role Phone Darnell [place] MD Unavailable Milly Celaya APRN, MAINTENANCE OPERATOR Primary Care Provider Unavailable Encounter Details Date Type Department Care Team (Late st Contact Info) Description 08/06/2024 [facility] 1 [place] [address] Justyn Miranda, SPEED OPERATOR #1 [place] [address] Social History Tobacco Use Types Packs/Day Years [...] Info) Description 06/04/2025 9:15 AM CDT Telemedicine [facility] 1 [place] [address] Justyn Miranda, SPEED OPERATOR #[address] [place] [address] Discharge Disposition: Discharged to home or Selfcare [...] to change Department associated with goal: [facility] BE[facility]AVIOR[facility] HE[facility] SERVICES Steps to [...] to change Department associated with goal: [facility] Steps to [...] documented as of this encounter Care Teams Physician Office Rep Relationship Specialty Start Date End Date Milly Celaya, SENIOR GAMES TECHNICIAN, MAINTENANCE OPERATOR [address] [address] PCP - General Obstetrics & Gynecology 05/23/18 Darnell [place] MD [address] [address] Psychiatry 03/16/18 documented as of this encounter
--- OUTSIDE RECORDS SUMMARY | 2025-05-14 10:37 | XMS_ITS | Encounter Summary ---
Author Organization [facility] Address [address] [facility] [place] [address] Phone Care Team Providers Care Technician Chemical Cleaning Name Role Phone Wilian Sultana MD Unavailable Darnell [place] MD Unavailable Milly Celaya APRN, WARDROBE COORDINATOR Primary Care Provider Unavailable Encounter Details Date Type Department Care Team (Late st Contact Info) Description 11/08/2023 [facility] 1 [place] [address] Justyn Miranda, SLOOP CAPTAIN #1 [place] [address] Social History Tobacco Use Types Packs/Day Years [...] [facility] 1 [place] [address] Justyn Miranda LCSW #1 [place] [address] Discharge Disposition: Discharged to home or Selfcare [...] documented as of this encounter Care Teams Technician Chemical Cleaning Relationship Specialty Start Date End Date Milly Celaya, POWER NUT RUNNER OPERATOR, WARDROBE COORDINATOR [place] [facility] [place] [address] PCP - General Obstetrics & Gynecology 05/23/18 Wilian Sultana MD Consulting Physician Neurology 08/11/16 06/24/24 Darnell [place] MD [address] [place] [address] Psychiatry 03/16/18 documented as of this encounter
--- OUTSIDE RECORDS SUMMARY | 2025-05-14 10:37 | XMS_ITS | Data Portability ---
Author Organization [facility] Address [address] [place] [address] Assessment No assessment recorded. Plan of Treatment Reminders Order Date Submit Date Provider Last Modified By Organization Details Last Modified Time Details Appointments None recorded. Lab SARS CoV 2 RNA (COVID-19), QL, die cutter diamond-PCR, respiratory specimen - clive, [facility] 2019 020 njeffries 9 [facility] ([facility] [address] [place], [address], 0 16:32:53 Referral None recorded. Procedures None recorded. Surgeries None recorded. Imaging None recorded. Medication Orders None recorded. Patient TargetsNo targets recorded. Patient Instructions Encounter Date Encounter Id Patient Instructions Last Modified By Organization Details Last Modified Time 12/17/2019 [id number] Reviewed the following recommendations: -Stay home and [...] ICD10 Code Diagnosis IMO Codes Diagnosis Note [id number] MD Cristian Mcdonald [address] [place] [address] 12/17/2019 16:27:38 12/18/2019 08:40:26 Cough [id number] R05 Health Concerns Section Related Observation LastModified by Organization Detai ls LastModified Time None Recorded Concern Status LastModified by Organization Details LastModified Time None Recorded Advance Directives Directive None Recorded Payers Insurance Date Sequence Insurance Name Policy Number Policy Omer Covered Member ID Omer Member ID Guarantor Name 09/27/2023 [place] [facility] Kemi Espinosa [id number] Kemi Espinosa 09/27/2023 1 [place] Kemi Espinosa [id number] Kemi Espinosa Notes Date Note Type Note Provider Name and Address Organization Details Recorded Time 0 text/html COVID-19 Symptoms October 2019Reported by PatientUpper Respiratory SymptomsFor covid-19 signs and symptoms, patient reportscough worseningbut reportsfever resolvedandshortness of breath resolved. For quality, patient reportsdry cough. For associated symptoms, patient reportsno sputum production,no shortness of breath,no wheezing,no fever,no runny nose,no sore throat,no vomiting,no diarrhea,no body aches,no nausea,no change in mental status,no hypotension, andno tachycardia. COVID ScreeningReported by PatientHPIFor associated symptoms, patient reportscoughbut reportsno shortness of breath. For comorbidities, patient reportsheart diseasebut reportsage greater than 65 years oldandother comorbidities (renal insufficency). For onset/duration of fever, patient reportsno fever.ROS as noted in the HPI pt complains of worsening cough and chills and wants to be tested MADIE MATTHEW NP Attn: Accounting,[address] [place], [address], [facility] 12/17/2019 16:33:18 OBGyn Episode No OBEpisode recorded.
--- OUTSIDE RECORDS SUMMARY | 2025-05-14 10:37 | XMS_ITS | Encounter Summary ---
Author Organization [facility] Address [address] [facility] [place] [address] Phone Care Team Providers Care Hospital Educator Name Role Phone Darnell [place] MD Unavailable Milly Celaya APRN, SENIOR MILITARY ANALYST Primary Care Provider Unavailable Encounter Details Date Type Department Care Team (Late Contact Info) Description 02/25/2025 [facility] 1 [place] [address] Justyn Miranda, HEAT SET OPERATOR #1 [place] [address] Social History Tobacco Use Types Packs/Day Years [...] Description 06/04/2025 9:15 AM CDT Telemedicine [facility] 1 [place] [address] Justyn Miranda, HEAT SET OPERATOR #1 [place] [address] Discharge Disposition: Discharged to home or Selfcare [...] Ready to change Department associated with goal: [facility]IOR[facility] HE[facility] SERVICES Steps [...] Ready to change Department associated with goal: [facility]IOR[facility] SERVICES Steps [...] documented as of this encounter Care Teams Hospital Educator Relationship Specialty Start Date End Date Milly Celaya, PORTFOLIO DIRECTOR, SENIOR MILITARY ANALYST [address] [address] PCP - General Obstetrics & Gynecology 05/23/18 Darnell [place] MD [address] [address] Psychiatry 03/16/18 documented as of this encounter
--- OUTSIDE RECORDS SUMMARY | 2025-05-14 10:37 | XMS_ITS | Encounter Summary ---
Author Organization [facility] Address [address] [facility] [place] [address] Phone Care Team Providers Care Lightning Rod Erector Name Role Phone Wilian Sultana MD Unavailable [phone] Darnell [place] MD Unavailable Milly Celaya APRN, CUSTOMER CARE AGENT Primary Care Provider Unavailable Encounter Details Date Type Department Care Team (Late st Contact Info) Description 12/20/2023 [facility] 1 [place] [address] Justyn Miranda, NUCLEAR FUEL ENRICHMENT TECHNICIAN #1 [place] [address] Social History Tobacco Use Types Packs/Day Years [...] Info) Description 06/04/2025 9:15 AM CDT [facility] 1 [place] [address] Justyn Miranda LCSW #1 [place] [address] Discharge Disposition: Discharged to home or Selfcare [...] to change Department associated with goal: [facility] BEHAVIORAL HE[facility] SERVICES Steps to achieve [...] to change Department associated with goal: [facility]IOR[facility] SERVICES Steps to achieve [...] documented as of this encounter Care Teams Lightning Rod Erector Relationship Specialty Start Date End Date Milly Celaya, UTILITY MANAGER, CUSTOMER CARE AGENT [place] [facility] [address] PCP - General Obstetrics & Gynecology 05/23/18 Wilian Sultana MD Consulting Physician Neurology 08/11/16 06/24/24 Darnell [place] MD [address] [place] [address] Psychiatry 03/16/18 documented as of this encounter
--- OUTSIDE RECORDS SUMMARY | 2025-05-14 10:37 | XMS_ITS | Encounter Summary ---
Author Organization [facility] Address [address] [facility] [place] [address] Phone Care Team Providers Care Millinery Copyist Name Role Phone Wilian Sultana MD Unavailable Darnell [place] MD Unavailable Milly Celaya APRN, BROKER AGRICULTURAL PRODUCE Primary Care Provider Unavailable Encounter Details Date Type Department Care Team (Late st Contact Info) Description 02/02/2024 Behavioral [facility] 1 [place] [address] Justyn Miranda, CHEMICAL ETCH OPERATOR #1 [place] [address] Social History Tobacco Use Types Packs/Day Years [...] 06/04/2025 9:15 AM CDT [facility]medicine [facility] 1 [place] [address] Justyn Miranda LCSW #1 [place] [address] Discharge Disposition: Discharged to home or Selfcare [...] documented as of this encounter Care Teams Millinery Copyist Relationship Specialty Start Date End Date Milly Celaya, MANAGER CT, BROKER AGRICULTURAL PRODUCE [place] [address] PCP - General Obstetrics & Gynecology 05/23/18 Wilian Sultana MD Consulting Physician Neurology 08/11/16 06/24/24 Darnell [place] MD [address] [address] Psychiatry 03/16/18 documented as of this encounter
--- OUTSIDE RECORDS SUMMARY | 2025-05-14 10:37 | XMS_ITS | Encounter Summary ---
Author Organization [facility] Address [address] [facility] [place] [address] Phone Care Team Providers Care Truckload Owner Operator Name Role Phone Darnell [place] MD Unavailable Milly Celaya APRN, SULFURIC ACID PLANT SUPERVISOR Primary Care Provider Unavailable Encounter Details Date Type Department Care Team (Late Contact Info) Description 01/16/2025 [facility] 1 [place] [address] Justyn Miranda, DEHYDRATOR OPERATOR #1 [place] [address] Social History Tobacco Use Types Packs/Day Years [...] Info) Description 06/04/2025 9:15 AM CDT [facility] 1 [place] [address] Justyn Miranda, DEHYDRATOR OPERATOR #[address] [place] [address] Discharge Disposition: Discharged to home or Selfcare [...] documented as of this encounter Care Teams Truckload Owner Operator Relationship Specialty Start Date End Date Milly Celaya, PACK MASTER, SULFURIC ACID PLANT SUPERVISOR [address] [address] PCP - General Obstetrics & Gynecology 05/23/18 Darnell [place] MD [address] [address] Psychiatry 03/16/18 documented as of this encounter
--- OUTSIDE RECORDS SUMMARY | 2025-05-14 10:37 | XMS_ITS | Encounter Summary ---
Author Organization [facility] Address [address] [facility] [place] [address] Phone Care Team Providers Care Charge Master Specialist Name Role Phone Wilian Sultana MD Unavailable Darnell [place] MD Unavailable Milly Celaya APRN, SHOP LEAD Primary Care Provider Unavailable Encounter Details Date Type Department Care Team (Late st Contact Info) Description 03/05/2024 Behavior[facility] 1 [place] [address] Justyn Miranda, TEAM AUTOMOBILE ASSEMBLER #1 [place] [address] Social History Tobacco Use Types Packs/Day Years [...] Info) Description 06/04/2025 9:15 AM CDT [facility]medicine [facility] 1 [place] [address] Justyn Miranda LCSW #1 [place] [address] Discharge Disposition: Discharged to home or Selfcare [...] documented as of this encounter Care Teams Charge Master Specialist Relationship Specialty Start Date End Date Milly Celaya, NURSING SURGICAL SERVICES DIRECTOR, SHOP LEAD [place] [address] PCP - General Obstetrics & Gynecology 05/23/18 Wilian Sultana MD Consulting Physician Neurology 08/11/16 06/24/24 Darnell [place] MD [address] [place] [address] Psychiatry 03/16/18 documented as of this encounter
--- OUTSIDE RECORDS SUMMARY | 2025-05-14 10:37 | XMS_ITS | Clinical Summary ---
Author Organization [facility] Address [address] [place] [address] Care Team Providers Care Fingerprint Clerk Name Role Phone Renetta Sarabia MD Primary [...] tongue Continuous as needed. 09/29/19 19 Active [place]-3 Fatty Acids 1,000 mg Capsule Take 1 [...] by mouth. Active naloxone (NARCAN) 4 mg/spray [place], Non-Aerosol EMERGENCY USE ONLY: Administer 1 spray [...] Encounters Date Type Department Care Team Description 04/30/2025 External Device Data [facility] ABSTRACTION Provider, Abstract 04/23/2025 External Device Data [facility] ABSTRACTION Provider, Abstract 03/27/2025 External Device Data [facility] ABSTRACTION Provider, [...] Comments Blood Pressure 121/77 07/19/2024 3:24 PM FELT CEMENTER Pulse 75 07/19/2024 3:24 PM FELT CEMENTER Temperature 36.1 C (97 F) 07/19/2024 3:24 PM FELT CEMENTER Respiratory Rate 16 07/19/2024 3:24 PM FELT CEMENTER Oxygen Saturation 96% 07/19/2024 3:24 PM FELT CEMENTER Inhaled Oxygen Concentration - - Weight 70.8 kg (156 lb) 07/19/2024 3:24 PM FELT CEMENTER Height 167.6 cm (5' 6) 07/08/2021 9:25 AM FELT CEMENTER Body Mass Index 25.18 07/08/2021 9:25 AM FELT CEMENTER Plan of Treatment Upcoming Encounters Date Type Department Care Team (Late st Contact Info) Description 07/22/2025 1:00 PM FELT CEMENTER Office Visit [facility] Oncology and Hematology - [address] [place] [address] Leon Oneill MD [address] [facility] [address] [place] [address] Health Maintenance Due Date Last Done Comments DTAP/TDAP/TD VACCINES (1 - Tdap) 1969 ZOSTER VACCINE (1 of 2) 1969 PNEUMOCOCCAL VACCINE 50+ YEA RS (2 of 2 - PPSV23, PCV20, or PCV21) 11/03/2020 09/08/2020, 07/17/2020 OSTEOPOROSIS SCREENING 11/18/2021 11/18/2016 RSV VACCINE (60+ or ) (1 - 1-dose 75+ series) 2023 Preventative Visit- Commercial 08/08/2024 INFLUENZA VACCINE (#1) 2025 05/22/2020 [facility] [employer] PPO [employer]ET[employer] O [facility] [employer] PPO Care Teams Fingerprint Clerk Relationship Specialty Start Date End Date Renetta Sarabia MD PCP - General Family Practice 12/21/19
--- OUTSIDE RECORDS SUMMARY | 2025-05-14 10:37 | XMS_ITS | Clinical Summary ---
Author Organization [facility] Address [address] [facility] [facility], [place] [address] Phone Care Team Providers Care Truck Railroad And Bus Motor Mechanic Name Role Phone Darnell Bryant MD Unavailable Milly Celaya APRN, ALTERNATIVE ENERGY ENGINEER Primary Care Provider Unavailable Allergies Active Allergy [...] Active Problems Problem Noted Date Diagnosed Date Grief reaction with prolonged bereavement 2024 Generalized anxiety disorder 05/05/2018 Panic disorder 05/05/2018 Adjustment disorder with mixed anxiety and depre ssed mood 05/05/2018 Drug rash 11/26/2016 Tremor 10/11/2016 Insomnia 09/27/2016 Spell of abnormal behavior 09/27/2016 Resolved Problems Problem Noted Date Diagnosed Date Resolved Date Depression 10/20/2016 05/05/2018 Memory loss 10/20/2016 05/05/2018 Encounters Date Type Department Care Team Description 05/13/2025 9:45 AM CDT Telemedicine [facility] [address] [place] [address] Justyn Miranda LCSW Generalized anxiety disorder (Primary Dx); Panic disorder; Grief reaction with prolonged bereavement Discharge Disposition: Discharged to home or Selfcare 05/13/2025 Travel 04/29/2025 10:30 AM CDT [facility] [address] [place] [address] Justyn Miranda LCSW Generalized anxiety disorder (Primary Dx); Panic disorder; Adjustment disorder with mixed anxiety and depressed mood Discharge Disposition: Discharged to home or Selfcare 04/29/2025 Travel 04/03/2025 8:30 AM CDT Telemedicine [facility] [address] [place] [address] Justyn Miranda LCSW Generalized anxiety disorder (Primary Dx); Panic disorder; Adjustment disorder with mixed anxiety and depressed mood Discharge Disposition: Discharged to home or Selfcare 04/03/2025 Travel 03/13/2025 9:00 AM CDT Telemedicine [facility] [address] [place] [address] Justyn Miranda LCSW Generalized anxiety disorder (Primary Dx); Panic disorder; Adjustment disorder with mixed anxiety and depressed mood Discharge Disposition: Discharged to home or Selfcare 03/13/2025 Travel 02/25/2025 8:30 AM CDT [facility] [address] [place] [address] Justyn Miranda, CHRISTIANO Generalized anxiety disorder (Primary Dx); Panic disorder; Adjustment disorder with mixed anxiety and depressed mood Discharge Disposition: Discharged to home or Selfcare 02/25/2025 Behavioral Health [facility] [address] [place] [address] Justyn Miranda LCSW 02/25/2025 Travel from Last 3 Months Family [facility] [address] [place] [address] Justyn Miranda, CHRISTIANO [address] [place] [address] Discharge Disposition: Discharged to home or Selfcare Health Maintenance Due Date Last Done Comments DEXA Bone Density 1950 Hepatitis C Virus (HCV) Screening 1950 Zoster Immunization (1 of 2) 1998 Medicare Initial AWV [id number] 07/08/2012 Respiratory Syncytial Virus (RSV) Immunization (Adult) (1 - 1-dose 75+ series) 2023 Influenza Immunization (#1) 04/08/20250 02/2024, 06/15/2023, 05/13/2022, Additional history exists SARS-COV-2 Immunization [...] track(2024 10:05 AM CDT) Yes Justyn Miranda, CHRISTIANO Note: [...] with family members Insurance MEDICARE C [place] [address] MEDICARE Care Teams Truck Railroad And Bus Motor Mechanic Relationship Specialty Start Date End Date Milly Celaya, ADAM, ALTERNATIVE ENERGY ENGINEER [facility] [place] [address] PCP - General Obstetrics & Gynecology 05/23/18 [place] [address] Psychiatry 03/16/18
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
--- OUTSIDE RECORDS SUMMARY | 2025-05-14 10:37 | XMS_ITS | Encounter Summary ---
Author Organization [facility] Address [address] [facility] [place] [address] Phone Care Team Providers Care Clock And Watch Hands Dipper Name Role Phone Wilian Sultana MD Unavailable Darnell Bryant MD Unavailable Milly Celaya APRN, STOCK HOLDER Primary Care Provider Unavailable Encounter Details Date Type Department Care Team (Late st Contact Info) Description 06/22/2024 Behavioral [facility] [address] [place] [address] Justyn Miranda, COVERSTITCH BINDER [address] [place] [address] Social History Tobacco Use Types Packs/Day Years [...] Info) Description 06/04/2025 9:15 AM CDT [facility] [address] [place] [address] Justyn Miranda LCSW [address] [place] [address] Discharge Disposition: Discharged to home or Selfcare [...] documented as of this encounter Care Teams Clock And Watch Hands Dipper Relationship Specialty Start Date End Date Milly Celaya, CONCRETE HANDLER, STOCK HOLDER [facility] [place] [address] PCP - General Obstetrics & Gynecology 05/23/18 Wilian Sultana MD Consulting Physician Neurology 08/11/16 06/24/24 Darnell Bryant MD [address] [place] [address] Psychiatry 03/16/18 documented as of this encounter
[2025-05-14 10:51] LABS: Albumin Level 4.7 g/dL (3.5-5.1); Anion Gap 9 mmol/L (4-12); Blood Urea Nitrogen 35 mg/dL (7-17); Calcium 10.6 mg/dL (8.4-10.2); Carbon Dioxide 27 mmol/L (22-30); Chloride 101 mmol/L (98-107); Estimated Glomerular Filt Rate 30; Glucose 139 mg/dL (65-110); Potassium 4.6 mmol/L (3.4-5.0); Sodium 137 mmol/L (137-145)
[2025-05-14 11:02] LABS: Parathyroid Intact 18.4 pg/mL (14.5-75.2)
== END 2025-05-14 09:51 | disposition home or self-care (01) ==
LOC: ANHLAB 09:54
PROVIDERS: PCP Family Medicine; Visit Provider Internal Medicine Nephrology
DX: N18.32 Chronic kidney disease, stage 3b (principal)
CPT/HCPCS: 36415; 80069; 82570; 83970; 84156; 85027

== ENCOUNTER 2025-07-12 12:07 | Outpatient (CLI) | payer OTHER, MEDICARE, SELFPAY ==
[2025-07-12 12:23] LABS: Hematocrit 43.0 % (37.0-47.0); Hemoglobin 14.4 g/dL (12.0-15.0); Immature Granulocyte Percent A 0.5 % (0-0.5); Lymphocytes Absolute Auto 2.66 K/mm3 (0.9-3.2); Mean Corpuscular HGB Conc 33.5 g/dl (32-36); Mean Corpuscular Hemoglobin 29.3 pg (26-34); Mean Corpuscular Volume 87.6 fl (80-100); Nucleated Red Blood Cells Absolute Auto 0.000 K/mm3 (0.0-0.012); Nucleated Red Blood Cells Perc 0.0 % (0.0-0.2); Platelet Count Result 212 k/mm3 (150-375); Red Blood Count 4.91 M/mm3 (4.2-5.4); White Blood Count 8.3 K/mm3 (4.5-10.0)
[2025-07-12 13:22] LABS: Alanine Aminotransferase 45 U/L (6-35); Albumin Level 4.6 g/dL (3.5-5.1); Alkaline Phosphatase 75 U/L (38-126); Anion Gap 9 mmol/L (4-12); Aspartate Amino Transferase 44 U/L (14-36); Bilirubin,Total 0.5 mg/dL (0.2-1.3); Blood Urea Nitrogen 19 mg/dL (7-17); Calcium 10.1 mg/dL (8.4-10.2); Carbon Dioxide 26 mmol/L (22-30); Chloride 102 mmol/L (98-107); Estimated Glomerular Filt Rate 28; Glucose 211 mg/dL (65-110); Potassium 4.5 mmol/L (3.4-5.0); Sodium 137 mmol/L (137-145); Total Protein 7.9 g/dL (6.3-8.2)
[2025-07-12 13:32] LABS: Immunoglobulin A 93 mg/dL (70-400); Immunoglobulin G 1021 mg/dL (700-1600); Immunoglobulin M 42 mg/dL (40-230)
[2025-07-15 12:08] LABS: Albumin 3.8 g/dL (2.9-4.4); Alpha-1-Globulin 0.3 g/dL (0.0-0.4); Alpha-2-Globulin 0.9 g/dL (0.4-1.0); Gamma Globulin 0.9 g/dL (0.4-1.8)
[2025-07-15 15:08] LABS: Free Lambda Lt Chains, Serum 18.4 mg/L (5.7-26.3); Kappa/Lambda Ratio, Serum 1.70 (0.26-1.65)
== END 2025-07-12 12:08 | disposition home or self-care (01) ==
LOC: ANHLAB 12:07
PROVIDERS: PCP Family Medicine; Visit Provider Internal Medicine Hematology & Oncology
DX: D80.1 Nonfamilial hypogammaglobulinemia (principal)
CPT/HCPCS: 36415; 80053; 82784; 83521; 84155; 84165; 85025

== ENCOUNTER 2025-07-22 12:14 | Outpatient (CLI) | payer OTHER, MEDICARE, SELFPAY ==
[2025-07-22 14:56] LABS: Hematocrit 43.5 % (37.0-47.0); Hemoglobin 14.5 g/dL (12.0-15.0); Immature Granulocyte Percent A 0.3 % (0-0.5); Lymphocytes Absolute Auto 4.15 K/mm3 (0.9-3.2); Mean Corpuscular HGB Conc 33.3 g/dl (32-36); Mean Corpuscular Hemoglobin 29.1 pg (26-34); Mean Corpuscular Volume 87.3 fl (80-100); Nucleated Red Blood Cells Absolute Auto 0.000 K/mm3 (0.0-0.012); Nucleated Red Blood Cells Perc 0.0 % (0.0-0.2); Platelet Count Result 262 k/mm3 (150-375); Red Blood Count 4.98 M/mm3 (4.2-5.4); White Blood Count 9.6 K/mm3 (4.5-10.0)
[2025-07-22 15:10] LABS: Alanine Aminotransferase 42 U/L (6-35); Albumin Level 4.6 g/dL (3.5-5.1); Alkaline Phosphatase 77 U/L (38-126); Anion Gap 6 mmol/L (4-12); Aspartate Amino Transferase 39 U/L (14-36); Bilirubin,Total 0.4 mg/dL (0.2-1.3); Blood Urea Nitrogen 21 mg/dL (7-17); Calcium 10.0 mg/dL (8.4-10.2); Carbon Dioxide 24 mmol/L (22-30); Chloride 107 mmol/L (98-107); Estimated Glomerular Filt Rate 33; Glucose 113 mg/dL (65-110); Potassium 4.4 mmol/L (3.4-5.0); Sodium 137 mmol/L (137-145); Total Protein 8.1 g/dL (6.3-8.2)
== END 2025-07-22 12:15 | disposition home or self-care (01) ==
PROVIDERS: PCP Family Medicine; Visit Provider Internal Medicine Rheumatology
DX: Z51.81 Encounter for therapeutic drug level monitoring (principal); Z79.899 Other long term (current) drug therapy
CPT/HCPCS: 36415; 80048; 80076; 85025